=== PATIENT | female | born 1955 | race African-American/Black ===

== ENCOUNTER 2017-02-02 02:39 | Inpatient (IN) | payer MEDICAID ==
[~2017-02-02] VITALS: Ht 157.5 cm; Wt 61.7 kg
[2017-02-02] VITALS (9 sets, daily range): BP systolic 93–140; BP diastolic 50–78
--- NOTE | 2017-02-02 02:39 | NUR ---
Patient was BIBA and taken to bed 05 via gurney per EMS.
--- NOTE | 2017-02-02 02:42 | NUR ---
RT at bedside.
--- NOTE | 2017-02-02 02:43 | NUR ---
61 Y/O F BIBA, FROM [facility] C/O SOB, VOMITING, FEVER, BREATHING TREATMENT GIVEN ON ROUTE, ZOFRAN, AND TYLENOL. VSS, BILATERAL WHEEZES HEARD ON UPPER LOBES ON EXAHALATION, RT AT BEDSIDE. ER MD AWARE.
--- NOTE | 2017-02-02 03:15 | NUR ---
Jan conley in [facility] - 02/02/17 at 0316 by JACOB XRAY at bedside.
[2017-02-02] MEDS ORDERED: ALBUTEROL SULFATE/IPRATROPIU 3 ML SOL IH ONE (03:20)
[2017-02-02] MEDS ORDERED: NACL 0.9% 1,000 ML IV ONE ×3 (03:25→05:55)
--- NOTE | 2017-02-02 03:26 | NUR ---
RT at bedside to give patient breathing treatment.
--- NOTE | 2017-02-02 03:30 | NUR ---
A DROPPED TO 91/49 ER MD NOTIFIED. IV FLUIDS TO BE INITIATE PER ER MD VERBAL ORDERS.
[2017-02-02 03:38] LABS: BASOPHILS # (AUTO) 0.2 K/uL (0.00-0.22); BASOPHILS % (AUTO) 1.5 % (0.0-2.0); EOSINOPHILS # (AUTO) 0.3 K/uL (0-0.4); HEMATOCRIT 33.6 % (36-48); HEMOGLOBIN 10.9 g/dL (12.0-16.0); LYMPHOCYTES # (AUTO) 1.9 K/uL (2.5-16.5); LYMPHOCYTES % (AUTO) 12.5 % (20.5-51.1); MEAN CORPUSCULAR HEMOGLOBIN 28 pg (27-31); MEAN CORPUSCULAR HGB CONC 32 g/dL (33-37); MEAN CORPUSCULAR VOLUME 86 fL (80-94); MONOCYTES # (AUTO) 0.9 K/uL (0.8-1.0); MONOCYTES % (AUTO) 6.2 % (1.7-9.3); NEUTROPHILS # (AUTO) 11.5 K/uL (1.8-7.7); NEUTROPHILS % (AUTO) 77.8 % (42.2-75.2); PLATELET COUNT (AUTO) 450 K/uL (140-450); RED BLOOD CELL COUNT(AUTO) 3.93 MIL/uL (4.20-5.40); RED CELL DISTRIBUTION WIDTH 14.4 % (11.6-13.7); WHITE BLOOD COUNT (AUTO) 14.8 K/uL (4.8-10.8)
--- NOTE | 2017-02-02 03:55 | NUR ---
PATIENT CAME INTO ER FOR SOB AND RT NOTICED PATIENT ON T-PIECE 3L-32% TRACH PORTEX 8 UNCUFFED AIRWAY PATENT ON ADMISSION. PT SUCTIONED FROM TRACH AND ORAL CARE DONE. PATIENT SATURATION 98 HEART 88 NO RESP DISTRESS. TX ADMITTED NO ADVERSE EFFECTS Addendum: 02/02/17 at 0547 by Mika Ram RT PORTEX 6
[2017-02-02 04:05] LABS: ALBUMIN 2.1 g/dL (3.4-5.0); ANION GAP 7.8 (8-16); CALCIUM 7.6 mg/dL (8.5-10.1); CARBON DIOXIDE 34.1 mmol/L (21-32); CREATININE 1.4 mg/dL (0.6-1.3); POTASSIUM 3.9 mmol/L (3.5-5.1); TOTAL BILIRUBIN 0.1 mg/dL (0.0-1.0); TOTAL PROTEIN, SERUM 6.6 g/dL (6.4-8.2)
[2017-02-02 04:14] LABS: APPEARANCE,URINE CLOUDY (CLEAR); BILIRUBIN,URINE NEGATIVE (NEGATIVE); BLOOD, URINE 1+ (NEGATIVE); COLOR,URINE YELLOW (YELLOW); LEUKOCYTE ESTERASE ,URINE 3+ (NEGATIVE); NITRITE, URINE NEGATIVE (NEGATIVE); PROTEIN,URINE NEGATIVE (NEGATIVE); UGLUCOSE NEGATIVE (NEGATIVE); UROBILINOGEN,URINE 0.2 EU/dL (0.2 - 1)
--- NOTE | 2017-02-02 04:14 | NUR ---
BLOOD PRESSURE 78/45. PER ER VERBAL ORDERS TO RUN ANOTHER LT OF NS 0.9 AT 999 ML / HR.
[2017-02-02 04:16] LABS: LACTIC ACID 1.4 mmol/L (0.4-2.0)
[2017-02-02 04:24] LABS: BACTERIA,URINE 3+ /HPF (None Seen); RBC,URINE 3-10 (FEW) /HPF (0-5); WBC,URINE TOO MANY TO COUNT /HPF (0-5)
--- NOTE | 2017-02-02 04:45 | NUR ---
SUCTIONING FROM T-PIECE TRACH DONE. PT TOLERATED WELL. MODERATE AMOUNT OF CLEAR SECRETIONS OBTAINED.
--- NOTE | 2017-02-02 04:50 | NUR ---
PT ON BED, ON MONITOR, BP CONTINUES LOW, ER MD NOTIFIED. SINUS RHYTHM, WILL CONT TO MONITOR.
--- NOTE | 2017-02-02 05:08 | NUR ---
ER NOTIFIED OF BP READINGS OF 75/44.
[2017-02-02] MEDS ORDERED: NOREPINEPHRINE 4 MG in DEXTROSE 5% 250 ML IV ONE (05:10)
[2017-02-02] MEDS ORDERED: VANCOMYCIN 1,000 MG in DEXTROSE 5% 250 ML IV ONE (05:15)
[2017-02-02] MEDS ORDERED: LEVOFLOXACIN 500 MG TAB PO ONE (05:15)
[2017-02-02] MEDS ORDERED: NOREPINEPHRINE 4 MG/4 ML VIAL IV ONE (05:27)
[2017-02-02] MEDS ORDERED: VANCOMYCIN 1,000 MG VIAL ONE (05:39)
--- NOTE | 2017-02-02 05:45 | NUR ---
PATIENT PLACED ON T-PIECE COOL AERSOL 30% FIOI02 6LPM PER DR. COLLIER. PORTEX 6 / INNER CANNULA CHANGED AND TRACH CARE DONE/ TRACH TIE CHANGED/ PT STABLE NO RESP DISTRESS
[2017-02-02] MEDS ORDERED: ALBUTEROL SULFATE/IPRATROPIU 3 ML SOL IH PRN (05:55)
[2017-02-02] MEDS ORDERED: ONDANSETRON 4 MG/2 ML VIAL IM/IVP PRN (05:55)
[2017-02-02] MEDS ORDERED: HYDROcodone/APAP 7.5/325 MG 1 TAB PO PRN (05:55)
[2017-02-02] MEDS ORDERED: LEVOFLOXACIN 500 MG/D5W PREMIX 100 ML IV ONE (05:55)
[2017-02-02] MEDS ORDERED: ACETAMINOPHEN 325 MG TAB PO PRN (05:55)
[2017-02-02] MEDS ORDERED: DOCUSATE SODIUM 100 MG GELCAP PO PRN (05:55)
[2017-02-02] MEDS: ALBUTEROL SULFATE/IPRATROPIU 3 ML SOL IH SCH ×5 (06:35→23:06)
--- NOTE | 2017-02-02 06:35 | NUR ---
RECEIVED PT IN ED ON 30 % COOL AEROSOL VIA TRACH PORTEX 6 WHICH IS SECURE PT IN HF AWAKE BS COARSE I\L LAVAGE AND SX LG YELLOW HHN GIVEH WITH 3 MG DUONEB NO DISTRESS NOTED
[2017-02-02] MEDS ORDERED: LACT10SO11 GT (06:46)
[2017-02-02] MEDS ORDERED: ATOR10TA GT (06:46)
[2017-02-02] MEDS ORDERED: CLON0.2T15 GT (06:46)
[2017-02-02] MEDS ORDERED: DOCU100C14 GT (06:46)
[2017-02-02] MEDS ORDERED: NA P135N19 RC (06:46)
[2017-02-02] MEDS ORDERED: BISA-213 RC (06:46)
--- NOTE | 2017-02-02 06:48 | NUR ---
PATIENT HAS BEEN SCREENED AND CATEGORIZED HIGH NUTRITION RISK. PATIENT WILL BE SEEN WITHIN 1-2 DAYS OF ADMISSION. 02/02/17-02/03/17 JEFFERY GUADARRAMA MS, RDN
--- NOTE | 2017-02-02 06:50 | NUR ---
Patient will be admitted to care of DR FENG. Admited to ICU 1. Will go to room ICU 1. Belongings list completed. Report to MINOR FAUST.
[2017-02-02 06:56] LABS: PARTIAL THROMBOPLASTIN TIME 24.3 secs (22-35.6); PROTHROMBIN TIME 9.7 secs (10.8-13.4)
[2017-02-02] MEDS ORDERED: PHEN100C3 GT (06:58)
[2017-02-02] MEDS ORDERED: MAGN400S60 GT (06:58)
[2017-02-02] MEDS ORDERED: MULT1SGL58 GT (06:58)
[2017-02-02] MEDS ORDERED: LISI10TA11 GT (06:58)
[2017-02-02] MEDS ORDERED: LEVOFLOXACIN 750 MG/D5W PREMIX 150 ML IV SCH (07:00)
--- NOTE | 2017-02-02 07:00 | NUR ---
OREPINEPHRINE STOP PER ER MD VERBAL ORDERS D/T BP SYSTOLIC ABOVE 1000.
--- NOTE | 2017-02-02 07:02 | NUR ---
NOREPINEPHRINE STOP D/T BP SYSTOLIC ABOVE 1000. ER MD MEYER
--- NOTE | 2017-02-02 07:09 | NUR ---
LEVAQUIN NONADMINISTER D/T VANCO RUNNING ON ONE IV LINE AND NOREEPINEPHRINE RUNNING ON THE SECOND LINE. ER MD AWARE. REPORT GIVEN TO FLOOR NURSE, MINOR FAUST.
--- NOTE | 2017-02-02 07:12 | NUR ---
EBONY 16 FR INSERTED PER ER MD ORDERS.
[2017-02-02] MEDS ORDERED: ACET-2869 GT (07:17)
[2017-02-02] MEDS ORDERED: PRED20TA5 GT (07:17)
[2017-02-02] MEDS ORDERED: ALBUTEROL INH (07:17)
[2017-02-02] MEDS ORDERED: NUTR30LI3 GT (07:17)
[2017-02-02] MEDS ORDERED: SCOP1PAT TP (07:17)
[2017-02-02] MEDS ORDERED: ACET-1182 GT (07:17)
[2017-02-02] MEDS ORDERED: THIA100T34 GT (07:17)
[2017-02-02] MEDS ORDERED: METH-426 GT (07:17)
[2017-02-02] MEDS ORDERED: ASCO500T45 GT (07:17)
[2017-02-02] MEDS ORDERED: ESOM40EC GT (07:17)
[2017-02-02] MEDS ORDERED: ATROVENT INH (07:17)
[2017-02-02] MEDS ORDERED: RIVA20TA GT (07:17)
[2017-02-02] MEDS ORDERED: ONDA4TAB GT (07:17)
--- NOTE | 2017-02-02 07:20 | NUR ---
PATIENT WILL BE RESCREENED WITHIN 1-2 DAYS OF ADMISSION. NOT ENOUGH INFORMATION AVAILABLE AT THIS TIME. 02/03/17-02/04/17 JEFFERY GUADARRAMA MS, RDN
--- NOTE | 2017-02-02 07:30 | NUR ---
ADMITTED PT FROM ER BY LEYLA, PT OPENS EYES, NONVERBAL , BEDSIDE MONITOR SHOWS SR, TRACH TO T-PIECE 30% COOL AEROSOL, NO S/S OF RESPIRATORY DISTRESS NOTED. O2 SAT 95%. LUNGS SOUND COARSE UPON AUSCULTATION.G-TUBE IN PLACE, ABDOMEN SOFT, WEST CATH IN PLACE WITH CLOUDY YELLOW URINE NOTED. BP 93/58 AT THIS TIME. HOB ELEVATED 30 DEGREES WITH LOW BED POSITION. WILL CONTINUE TO MONITOR.
[2017-02-02] MEDS: NACL 0.9% 1,000 ML IV SCH ×3 (07:45→23:08)
--- NOTE | 2017-02-02 08:00 | NUR ---
DR. KISER AND GROUP AT BEDSIDE TO SEE PT. WILL F/U WITH NEW ORDERS
[2017-02-02] MEDS ORDERED: NOREPINEPHRINE 4 MG in DEXTROSE 5% 250 ML IV PRN (09:00)
[2017-02-02 09:10] LABS: MAGNESIUM 3.3 mg/dL (1.8-2.4); PHOSPHORUS 4.9 mg/dL (2.5-4.9)
[2017-02-02 09:11] LABS: AMYLASE 68 U/L (25-115); FREE T4 (FREE THYROXINE) 1.14 ng/dL (0.76-1.46); LIPASE 81 U/L (73-393); THYROID STIMULATING HORMONE < 0.01 uIU/mL (0.34-3.74)
--- NOTE | 2017-02-02 09:30 | NUR ---
DR. DIALLO AND DR. WHITE AT BEDSIDE TO PERFORM CENTRAL LINE INSERTION. CONSENT HAS BEEN OBTAINED FROM DAUGHTER DAJA. TIME OUT DONE.
[2017-02-02] MEDS ORDERED: HYDROmorphone 1 MG/ML AMP IVP SCH (09:44)
[2017-02-02 10:49] LABS: CHOL/HDL RATIO 3.4 (1-4.5); CHOLESTEROL 129 mg/dL (<200); HDL CHOLESTEROL 38 mg/dL (40-60)
[2017-02-02 10:51] LABS: LDL (CALC) 69 mg/dL (60-100); TRIGLYCERIDES 114 mg/dL (30-150)
--- NOTE | 2017-02-02 11:00 | NUR ---
NEW IV STARTED AT R FOREARM. 22 GAUGE. INTACT AND PATENT. FLUSHED WELL. BLOOD RETURN NOTED. Addendum: 02/02/17 at 1216 by Praful Morgan RN NEW IV STARTED BECAUSE PT HAD PULLED OUT THE OLD IV. DRESSING PLACED. CANULA WAS INTACT.
[2017-02-02] MEDS: PANTOPRAZOLE 40 MG INJ VIAL IVP SCH (11:07)
[2017-02-02] MEDS: MORPHINE SULFATE 2 MG/ML SYR IVP PRN ×2 (11:07→15:41)
[2017-02-02 11:22] LABS: BLOOD GAS BASE EXCESS 4.7 mmol/L (-2.0-2.0); BLOOD GAS HCO3 29.7 mmol/L; BLOOD GAS PH 7.428 (7.35-7.45); BLOOD GAS PO2 66.9 mmHg
[2017-02-02 11:23] LABS: BLOOD GAS O2 SAT% 93.3 % (92.0-98.5)
--- NOTE | 2017-02-02 11:45 | NUR ---
PER DR. DIALLO, UNABLE TO INSERT CENTRAL LINE. WILL CONTINUE TO MONITOR OF NOW. Addendum: 02/02/17 at 1214 by Praful Morgan RN CENTRAL LINE ATTEMPT WAS STOPPED AT 1045 NOT 1145.
[2017-02-02] MEDS ORDERED: CLINDAMYCIN 600 MG in DEXTROSE 5% 50 ML IV SCH (12:00)
[2017-02-02] MEDS: CLINDAMYCIN 600 MG in DEXTROSE 5% 50 ML IV SCH ×2 (12:11→17:15)
--- NOTE | 2017-02-02 12:15 | NUR ---
MEDICATION ADMINISTERED ORDERED. TOLERATED WELL. WILL CONTINUE TO MONITOR.
--- NOTE | 2017-02-02 12:17 | NUR ---
PATIENT HAS BEEN SCREENED AND CATEGORIZED HIGH NUTRITION RISK. PATIENT WILL BE SEEN WITHIN 1-2 DAYS OF ADMISSION. 02/02/17-02/03/17 JEFFERY GUADARRAMA MS, RDN
--- NOTE | 2017-02-02 12:58 | NUR ---
02/02/17 RD INITIAL ASSESSMENT COMPLETED PLEASE REFER TO NUTRITION ASSESSMENT UNDER CARE ACTIVITY FOR ESTIMATED NUTRITIONAL NEEDS. RD RECOMMENDATIONS: 1. CONSIDER INITIATING NUTRITION WHEN MEDICALLY APPROPRIATE. 2. CONSULT RDN FOR RECOMMENDATIONS. 3. CONSIDER FIBERSOURCE HN TO RUN AT RATE OF 65 ML/HR X 24 HOURS = 1650 ML, 1872 KCAL, 84.2 GM PROTEIN, AND 1263 ML FREE WATER, WITH ADDITIONAL WATER FLUSH 25 ML/HR X 24 HOURS TO PROVIDE 1000 ML. THIS WILL MEET 100% EST KCAL NEEDS AND 92% EST PROTEIN NEEDS. 4. RD WILL F/U 2-3 DAYS; HIGH RISK. JEFFERY GUADARRAMA, , RDN
--- NOTE | 2017-02-02 13:00 | NUR ---
DR. ENRIQUE AT BEDSIDE TO SEE PT. WILL F/U WITH NEW ORDERS.
--- NOTE | 2017-02-02 13:10 | NUR ---
UPDATE MD REGARDING RD RECOMMENDATION. AWAITING NEW ORDERS.
--- NOTE | 2017-02-02 13:20 | NUR ---
DR. WHITE AT BEDSIDE. BACK AND BUTTOCKS SHOWN TO RESIDENT. RESIDENT AWARE OF THE ABNORMAL SKIN ASSESSMENT
--- NOTE | 2017-02-02 13:53 | NUR ---
PIN POINT WOUND ON BOTTOM NOTED TO BE DRAINING. PUS LIKE. MD NOTIFIED. WILL FOLLOW NEW ORDERS.
[2017-02-02] MEDS ORDERED: MAGNESIUM HYDROXIDE 2400 MG/30 ML UDC GT PRN (14:15)
[2017-02-02] MEDS ORDERED: BISACODYL 10 MG SUPP RC PRN (14:15)
[2017-02-02] MEDS ORDERED: ACETAMINOPHEN 650 MG/20.3 ML UDC GT PRN (14:15)
[2017-02-02] MEDS ORDERED: SODIUM PHOSPHATE 118 ML ENEM RC PRN (14:15)
--- NOTE | 2017-02-02 15:00 | NUR ---
DR. DIALLO AND DR. WHITE AT BEDSIDE TO DO RECTAL EXAM. WILL F/U WITH NEW ORDER.
--- NOTE | 2017-02-02 15:27 | NUR ---
PT REFUSES SCDS, CURRENTLY ON XARELTO. AWARE. STATED THAT IT WAS OKAY TO NOT PLACE SCDS
[2017-02-02] MEDS ORDERED: FUROSEMIDE 20 MG/2 ML VIAL IVP SCH (15:33)
--- NOTE | 2017-02-02 15:34 | NUR ---
FAMILY AT BEDSIDE TO SEE PT. DAUGHTER AND GRANDSON.
--- NOTE | 2017-02-02 16:00 | NUR ---
PER DR. DIALLO, HOLDING TUBE FEEDING UNTIL STICKER HAND REVIEWS ORDER.
--- NOTE | 2017-02-02 16:48 | NUR ---
PT LEFT FOR CT SCAN WITH LEONARD AND RN IN [facility]. WILL CONTINUE TO MONITOR.
--- NOTE | 2017-02-02 17:10 | NUR ---
PT RETURN FROM CT. VITALS STABLE WILL CONTINUE TO MONITOR
[2017-02-02] MEDS: LACTULOSE 20 GM/30 ML UDC GT SCH ×2 (17:16→20:55)
--- NOTE | 2017-02-02 17:16 | NUR ---
REPEAT BUSINESS SUPPORT MANAGER TAKEN TO LAB CHANGE H20 BOTTLE CARISA THORPE
--- NOTE | 2017-02-02 17:17 | NUR ---
GT TUBE PLACEMENT CHECKED. 0 RESIDUAL NOTED. MEDICATION ADMINISTERED ORDERED. TOLERATED WELL. WILL CONTINUE TO MONITOR Addendum: 02/02/17 at 1757 by Praful Morgan RN TUBE FEEDING STARTED ORDERED. TOLERATING WELL. WILL CONTINUE TO MONITOR.
--- NOTE | 2017-02-02 19:00 | NUR ---
RECEIVED PT ON 32% COOL AEROSOL , TRACH # 6, MED NEB IM LINE, SX SMALL THIN SECRETION
--- NOTE | 2017-02-02 19:20 | NUR ---
RECEIVED REPORT FROM CHRISTIANNE RN AT BEDSIDE, PT IS RESTING IN BED WITH EYES CLOSED, OPEN EYES WHEN CALLING HER NAME, APHASIC, NOT ABLE TO FOLLOW COMMANDS, VSS, FLACC 0, TRACH TO T-PIECE 30% COOL AEROSOL, NO S/S OF RESPIRATORY DISTRESS, BREATHING EVEN AND UNLABORED, CLEAR LUNG SOUNDS, INTERMIT COUGHING, SUCTION PROVIDED, O2 SAT 96%. SR ON FIREARMS SALES ASSOCIATE, SOFT ABDOMEN WITH ACTIVE BOWEL SOUNDS, G-TUBE IN PLACE WITH 0 ML RESIDUALS, FEEDING FIBERSOURCE AT 65ML/HR, INCONTINENT WITH B&B'S, WEST CATH IN PLACE WITH CLOUDY YELLOW URINE NOTED. GENERALIZED WEAKNESS TO ALL EXTREMITIES, SKIN IS WARM AND DRY TO TOUCH, NON-INTACT (SEE WOUND ASSESSMENT), IV SITE TO RIGHT FOREARM 22GA, PATENT, SL, IV SITE TO LEFT HAND 22GA RUNNING NS AT 100 ML/HR. ORAL CARE PROVIDED, POSITION CHANGED FOR OFF LOAD PRESSURE, SAFETY MEASURES MAINTAINED, HOB ELEVATED 30 DEGREES, CALL LIGHT WITH REACH, WILL CONTINUE TO MONITOR.
--- NOTE | 2017-02-02 19:20 | NUR ---
REPORT GIVEN TO MINOR MACHADO. PT IS STABLE.
--- NOTE | 2017-02-02 20:45 | NUR ---
DR. MERINO CAME IN TO EVALUATE PATIENT AT BEDSIDE, NO NEW ORDER AT THIS TIME.
[2017-02-02] MEDS: DOCUSATE 100 MG/10 ML UDC GT SCH (20:55)
[2017-02-02] MEDS: ATORVASTATIN 20 MG TAB GT SCH (20:55)
[2017-02-02] MEDS ORDERED: NON-FORMULARY ITEM (Amino Acids/Protein Hydrolys (Pro-Stat Sugar Free Liquid Pkt) 30 ML) GT SCH (21:00)
--- NOTE | 2017-02-02 22:00 | NUR ---
NO CHANGE OF CONDITION AT THIS TIME, VSS, POSITION CHANGED FOR OFF LOAD PRESSURE.
[2017-02-03] VITALS (8 sets, daily range): BP systolic 97–122; BP diastolic 56–68
--- NOTE | 2017-02-03 | NUR ---
PT IS ASLEEP IN BED, NO S/S OF DISTRESS, SUCTION PROVIDED, ORAL CARE PROVIDED, POSITION CHANGED FOR OFF LOAD PRESSURE.
[2017-02-03] MEDS: CLINDAMYCIN 600 MG in DEXTROSE 5% 50 ML IV SCH ×4 (00:13→18:15)
--- NOTE | 2017-02-03 00:15 | NUR ---
TRACH CARE DONE, CLEAN INNER CANNULA AND CHANGED THE GAUZE, SX SMALL SECRETION, PT ASLEEP NO DISTRESS NOTED
--- NOTE | 2017-02-03 02:00 | NUR ---
PT IS COUGHING, SUCTION PROVIDED, VSS, POSITION CHANGED FOR OFF LOAD PRESSURE.
[2017-02-03] MEDS: ALBUTEROL SULFATE/IPRATROPIU 3 ML SOL IH SCH ×6 (03:08→23:04)
--- NOTE | 2017-02-03 03:22 | NUR ---
CHANGED WATER FOR AEROSOL, PT ASLEEP, NO DISTRESS NOTED
--- NOTE | 2017-02-03 04:00 | NUR ---
AM CARE PROVIDED, ORAL CARE PROVIDED, WEST CARE PROVIDED, SUCTION PROVIDED, POSITION CHANGED FOR OFF LOAD PRESSURE, VSS.
[2017-02-03 04:37] LABS: BASOPHILS # (AUTO) 0.1 K/uL (0.00-0.22); EOSINOPHILS # (AUTO) 0.2 K/uL (0-0.4); HEMATOCRIT 30.5 % (36-48); HEMOGLOBIN 9.9 g/dL (12.0-16.0); LYMPHOCYTES # (AUTO) 1.8 K/uL (2.5-16.5); MEAN CORPUSCULAR HEMOGLOBIN 28 pg (27-31); MEAN CORPUSCULAR HGB CONC 32 g/dL (33-37); MEAN CORPUSCULAR VOLUME 87 fL (80-94); MONOCYTES # (AUTO) 0.4 K/uL (0.8-1.0); MONOCYTES % (AUTO) 6.1 % (1.7-9.3); NEUTROPHILS # (AUTO) 3.4 K/uL (1.8-7.7); NEUTROPHILS % (AUTO) 57.9 % (42.2-75.2); PLATELET COUNT (AUTO) 313 K/uL (140-450); RED BLOOD CELL COUNT(AUTO) 3.52 MIL/uL (4.20-5.40)
[2017-02-03 04:45] LABS: ANION GAP 8.4 (8-16); CALCIUM 7.3 mg/dL (8.5-10.1); CARBON DIOXIDE 31.9 mmol/L (21-32); CREATININE 0.8 mg/dL (0.6-1.3); POTASSIUM 3.3 mmol/L (3.5-5.1)
[2017-02-03 04:52] LABS: CALCIUM 7.4 mg/dL (8.5-10.1); MAGNESIUM 2.3 mg/dL (1.8-2.4); PHOSPHORUS 3.1 mg/dL (2.5-4.9)
[2017-02-03 04:58] LABS: WHITE BLOOD COUNT (AUTO) 5.9 K/uL (4.8-10.8)
--- NOTE | 2017-02-03 06:00 | NUR ---
PT IS COUGHING UP WITH FEEDING FORMULA OUT FROM TRACH, SUCTION PROVIDED, DR. WHITE MADE AWARE. POSITION CHANGED FOR OFF LOAD PRESSURE. VSS.
[2017-02-03] MEDS: NACL 0.9% 1,000 ML IV SCH ×2 (06:17→17:05)
--- NOTE | 2017-02-03 07:11 | NUR ---
REPORT GIVEN TO MINOR CASTILLO AT BEDSIDE FOR CONTINUE OF CARE, PT IS IN STABLE CONDITION AT THIS TIME.
--- NOTE | 2017-02-03 07:30 | NUR ---
RECEIVED REPORT FROM CARTER GAXIOLA,PT IS SLEEPING AT THE TIME. OPEN EYES WHEN SHAKED, SHE HAS TRACH TO T. PEICE AT 30 %. O2 SAT AT 98% IV FLUID HAS #22 ON LT HAND INFUSING NS AT 100 ML/HR. GT FEEDING WITH FIBERSOURCE HN AT 65 ML/HR. SHE HAS F/C DRAIN CLEAR YELLOW URINE.
[2017-02-03] MEDS ORDERED: NACL 0.9% 1,000 ML IV SCH (07:50)
--- NOTE | 2017-02-03 07:53 | NUR ---
LAB CALLED. SPUTUM SENT 02/02/17 @ 1716 IS CONTAMINATED. UNABLE TO DO CULTURE. NEEDS TO RECOLLECT. RT ESTER MADE AWARE OF NEED FOR SPUTUM SPECIMEN.
--- NOTE | 2017-02-03 08:00 | NUR ---
SEEN BY DR. HOLLAND AND HIS TEAM. ORDER RECEIVED.
--- NOTE | 2017-02-03 08:05 | NUR ---
BEBA PT FOR THE THIRD TIME DUE TO LAB SAYING THE SPUTUM WAS CONTAMINATED
[2017-02-03 08:23] LABS: HEMOGLOBIN A1C 5.5 % (4.8-5.6); T4 (THYROXINE) 4.3 ug/dL (4.5-12.0)
[2017-02-03] MEDS: DOCUSATE 100 MG/10 ML UDC GT SCH ×2 (08:25→21:49)
[2017-02-03] MEDS: PANTOPRAZOLE 40 MG INJ VIAL IVP SCH (08:25)
[2017-02-03] MEDS: LACTULOSE 20 GM/30 ML UDC GT SCH ×4 (08:26→21:48)
[2017-02-03] MEDS: ASCORBIC ACID 500 MG/5 ML ORASYR GT SCH (08:26)
[2017-02-03] MEDS: predniSONE 20 MG TAB GT SCH (08:26)
[2017-02-03] MEDS: METHIMAZOLE 5 MG TAB GT SCH (08:27)
[2017-02-03] MEDS: RIVAROXABAN 10 MG TAB GT SCH (08:29)
[2017-02-03] MEDS: FERRIC GLUCONATE 125 MG in NACL 0.9% 100 ML IV SCH ×2 (08:30→09:16)
[2017-02-03] MEDS ORDERED: NON-FORMULARY ITEM (Multivitamin (Multivitamins) 1 CAP) GT SCH (09:00)
--- NOTE | 2017-02-03 09:10 | NUR ---
POTASSIUM 40 MEQ GT GIVEN.
--- NOTE | 2017-02-03 09:15 | NUR ---
PT GETTING RESTLESS HR AND RESP. ARE INCREASE MEDICATION FOR PAIN GIVEN ORDERED.
[2017-02-03] MEDS: MORPHINE SULFATE 2 MG/ML SYR IVP PRN (09:17)
[2017-02-03] MEDS: MULTIVITAMIN 5 ML ORASYR GT SCH (09:20)
[2017-02-03] MEDS: THIAMINE 100 MG TAB GT SCH (09:21)
[2017-02-03] MEDS ORDERED: POTASSIUM CHLORIDE 20% 40 MEQ/15 ML UDC GT SCH (09:30)
--- NOTE | 2017-02-03 11:13 | NUR ---
STRACE PT LARGE AMT OF YELLOW SECRETIONS, CHANGED MAURILIO PT IS NOW RESTING
--- NOTE | 2017-02-03 12:00 | NUR ---
REPOSITION ORAL CARE GIVEN ,RESTING COMFORTABLE.
--- NOTE | 2017-02-03 14:45 | NUR ---
TRACH CARE DONE CHANGED TRACH TIE AND GAUZE AND CLEANED INNER CANNULA SXN PT LARGE AMT OF THICK YELLOW SECRETIONS RN STUDENTS AT BEDSIDE
--- NOTE | 2017-02-03 15:25 | NUR ---
TRANSFER TO 108BIN BED CONDITION STABLE DURING TRANSFER.
--- NOTE | 2017-02-03 15:30 | NUR ---
REPORT GIVED TO MARYSE GAXIOLA
--- NOTE | 2017-02-03 15:30 | NUR ---
PT ARRIVED ON UNIT WITH ANNA HEART NURSE. PT IS AWAKE AND OBEYS COMMANDS. PT HAS A TRACH TO VENT AT 30% FIO2 AND 6LPM OF O2. PT O2 SATURATION IS 96% AND RESPIRATIONS AT 28. DR WHITE WAS NOTIFIED. PT SKIN IS INTACT WITH HEALED PINPOINT WOUND IN THE SACRUM. PT ON ISOLATION PRECAUTIONS FOR HX OF ESBL OF THE SPUTUM. PT V/S WERE TAKEN. IV NOTED ON THE L H WITH IVF'S INFUSING WELL. PT HAS GT IN PLACE IN THE RUQ WITH FIBERSOURCE AT 60ML/HR AND FREE H20 FLUSH AT 25ML/HR Q6H. PT LUNG SOUNDS ARE COARSE MD AWARE. PT ON TELE MONITORING. PT BED IS LOWERED WITH CALL LIGHT WITHIN REACH.
--- NOTE | 2017-02-03 16:00 | NUR ---
RT CAME TO SUCTION PT. PT TOLERATED ACTIVITY WELL. PT O2 SATURATION IS 94% HR AT 109. PT MOUTH WAS SUCTIONED WELL. WILL CONTINUE TO MONITOR.
[2017-02-03] MEDS ORDERED: cloNIDine-TTS1 0.1 MG/24 HR 1 EA PATCH TD SCH (16:25)
--- NOTE | 2017-02-03 16:25 | NUR ---
CLONIDINE PATCH WAS NOT GIVEN BECAUSE PT BP IS 103/60. WILL MONITOR PT BP. WILL ENDORSE TO NIGHT NURSE.
--- NOTE | 2017-02-03 16:30 | NUR ---
PT SEEN BY DR WHITE. DR AWARE OF RESPIRATIONS AND TACHYCARDIA. WILL AWAIT FOR NEW ORDERS.
[2017-02-03] MEDS ORDERED: SCOPOLAMINE 1.5 MG/72 HR PATCH TD SCH (17:15)
--- NOTE | 2017-02-03 18:24 | NUR ---
ADMINISTERED SCHEDULED MEDS THROUGH GT. PT GT WAS CHECKED FOR PLACEMENT AND ASPIRATED. PT RESIDUAL WAS 40 CC. GT WAS FLUSHED WITH 10CC OF WATER AND MEDICATION WAS ADMINISTERED. AFTER MEDICATION ADMINISTRATION RN FLUSHED WITH 10CC OF WATER. RN CONTINUED TF AT 65ML/ HR. IV ABX WAS GIVEN AND INFUSING WELL IN THE LH. PT SCOPOLAMINE TRANSDERMAL IS NOT AVAILABLE. CALLED DR MERINO IF IT WAS OKAY TO CHANGE TIME FOR TOMORROW MORNING WHEN PHARMACY IS OPEN. OKAYED FOR MEDICATION TO BE ADMINISTERED WITH THE MORNING MEDICATIONS AT 9AM.
--- NOTE | 2017-02-03 18:33 | NUR ---
PT IS AWAKE AND WAS SUCTIONED. PT THEN WAS TURNED AND REPOSITIONED. O2 SAT IS 99% AND HR 94. PT BED IS LOWERED WITH CALL LIGHT WITHIN REACH.
--- NOTE | 2017-02-03 19:15 | NUR ---
RCV'D PT ON 30% CA WITH PORTEX 6. TRACH IS IN PLACE AND SECURE. SXN'D SMALL AMT OF WHITE THIN SECRETIONS. BS COARSE. SPO2 98%. HHN TX GIVEN. NO SOB OR DISTRESS NOTED. WILL CONTINUE TO MONITOR.
--- NOTE | 2017-02-03 19:29 | NUR ---
PT IS BEING SEEN BY RT. PT IS GETTING A BREATHING TX. PT REPORT WAS GIVEN AT BEDSIDE. PT ENDORSED IN STABLE CONDITION.
--- NOTE | 2017-02-03 19:30 | NUR ---
RECEIVED REPORT FROM DAY RN AT BEDSIDE, PATIENT IS APHASIC, WITH A TRACH TO TPIECE AT 30%, NO SOB OR DISTRESS NOTED, RT AT BEDSIDE, PT HAS MANY SECRETIONS. O2 SATS AT 95% HR 95. PATIENT OPENS EYES SPONTANEOUSLY, FOLLOWS MINIMAL COMMANDS. PT DOES NOT APPEAR TO BE IN PAIN, FLACC-0. PT HAS G-TUBE TO FEEDING AT 65ML/HR. PT TOLERATING WELL. RESIDUAL 10ML. SKIN INTACT, WITH SACRAL REDNESS. IV TO LEFT HAND PATENT AND INTACT. SAFETY MEASURES CHECKED, WILL CONTINUE TO FREQUENTLY MONITOR.
--- NOTE | 2017-02-03 21:15 | NUR ---
WAS CALLED BY JONNA ROSSI BECAUSE PATIENT DECANNULATED HER TRACH TUBE. THERE WAS NO 6 PORTEX CUFFED AND UNCUFFED IN PYXIS. WHILE DR. SELLERS WAS PRESENT AT BEDSIDE WITH ME, I ATTEMPTED TO PUT SHILEY 6 CUFFED AND WAS UNABLE,STOMA WAS VERY SMALL, SO I RE-INSERTED PATIENT ORIGINAL TRACH TUBE PORTEX 6 UNCUFFED BREATH SOUNDS ARE BILATERAL, SAO2 100% HR-97 ON 30% T-PIECE
--- NOTE | 2017-02-03 21:31 | NUR ---
RCV'D A CALL FROM MINOR MCLAIN THAT PT PULLED OUT HER TRACH. UPON ARRIVAL PT SPO2 WAS 97% WITH NO DISTRESS. ED DR SELLERS WAS CALLED STAT. TRACH WAS PUT BACK BY RT NBA WITH PRESENCE OF DR SELLERS. PT IS NOT IN DISTRESS. CLEANED STOMA. SXN'D SMLL AMT OF BLOODY SECRETIONS. PER DR SELLERS TO RESTRAIN PT. DONE BY NURSE. PAGED DR MERINO WAITING FOR CALL BACK FOR ANY FURTHER INSTRUCTIONS. WILL CONTINUE TO MONITOR.
--- NOTE | 2017-02-03 21:40 | NUR ---
PER DR MERINO TO ORDER CXR TO CONFIRM TRACH PLACEMENT. ORDER DONE BY CHARGE NURSE.
--- NOTE | 2017-02-03 21:42 | NUR ---
AT 2115 ENTERED PATIENT'S ROOM TO GIVE PM MEDICATIONS, PATIENT'S T PIECE WAS LAYING ON PTS CHEST, ON FURTHER ASSESSMENT, PT PULLED OUT TRACH, PT WAS NOT IN RESPIRATORY DISTRESS, O2 SATS REMAINED 95-97%, PAGED RT JONNA STAT, RT CAME TO ASSESS, CHARGE NURSE CALLED DR SELLERS STAT TO REINSERT TRACH. BOTH RTS JONNA AND NBA IN ROOM, MD SELLERS CAME TO ASSIST. RT MARIA LI INSERTED TRACH, PT TOLERATED WELL. PTS HR 118 DURING REINSERTION, O2 SATS REMAIN AT 97 AND AFTER INSERTION HR IS 96. RECEIVED VERBAL ORDERS FROM MD SELLERS TO RESTRAIN PT SO PATIENT DOES NOT PULL IT OUT AGAIN. WILL FOLLOW UP WITH ORDERS. PT IN SOFT WRIST RESTRAINTS.WILL CONTINUE TO CLOSELY MONITOR PATIENT.
[2017-02-03] MEDS: ATORVASTATIN 20 MG TAB GT SCH (21:49)
--- NOTE | 2017-02-03 22:55 | NUR ---
PM MEDS ADMINISTERED THROUGH G-TUBE PER MD ORDER, PT O2 SATS REMAIN AT 97-100%, WILL CONTINUE TO CLOSELY MONITOR.
--- NOTE | 2017-02-03 23:08 | NUR ---
HHN TX GIVEN. SXN'D SMALL AMOUNT OF BLOODY SECRETIONS. NO SOB OR DISTRESS NOTED SPO2 100%. PORTEX [address] STOMA IS DRAINING[address] MINOR MCLAIN AT BEDSIDE. WILL CONTINUE TO MONITOR.
[2017-02-04] VITALS: BP 150/65
--- NOTE | 2017-02-04 | NUR ---
VITAL SIGNS STABLE, NO SIGN OF DISTRESS, PT SUCTIONED, WHITE SECRETIONS, O2 SATS 100% NO SIGN OF DISTRESS, WILL CONTINUE TO MONITOR.
[2017-02-04] MEDS: CLINDAMYCIN 600 MG in DEXTROSE 5% 50 ML IV SCH ×4 (01:07→18:45)
--- NOTE | 2017-02-04 01:30 | NUR ---
SUCTIONED MODERATE AMOUNT OF WHITE SECRETIONS O2 SATS 100%, WILL CONTINUE TO CLOSELY MONITOR
--- NOTE | 2017-02-04 02:15 | NUR ---
SUCTIONED TRACH, LARGE AMOUNT WHITE SECRETIONS. O2 SAT 98% HR 85. WILL CONTINUE TO MONITOR.
[2017-02-04] MEDS: ALBUTEROL SULFATE/IPRATROPIU 3 ML SOL IH SCH ×6 (02:52→22:58)
--- NOTE | 2017-02-04 02:56 | NUR ---
HHN TX GIVEN TO PT. SXN'D MOD AMOUNT OF WHITE THIN SECRETIONS. NO SOB OR DISTRESS NOTED. WILL CONTINUE TO MONITOR.
--- NOTE | 2017-02-04 03:13 | NUR ---
TRACH CARE DONE WITHOUT INCIDENT. ASKED RN RAYNE IF PT HAS MITTEN ORDERS PT CAN STILL REACH WITH HER RIGHT HAND. SHE SAID THEY WILL TIE IT MORE. NO SOB OR DISTRESS NOTED. WILL CONTINUE TO MONITOR.
--- NOTE | 2017-02-04 03:15 | NUR ---
REINFORCED RIGHT WRIST RESTRAINT, PT ABLE TO REACH FOR TUBES. PT JUST RECEIVED BREATHING TX, TRACH IN PLACE, O2 SATS AT 94%, WILL CONTINUE TO CLOSELY MONITOR.
[2017-02-04 04:00] VITALS: BP 146/74
--- NOTE | 2017-02-04 04:09 | NUR ---
PT KEEPS MOVING A LOT T PIECE GOT DISCONNECTED FROM TRACH. ON PATIENTS CHEST, RESTRAINTS TIGHTENED, T PIECE RECONNECTED O2 SATS AT 95% Addendum: 02/04/17 at 0802 by Krista Escobedo RN TRACH REMAINS IN PLACE RT JONNA OBSERVED AND TIGHTENED COLLAR.
[2017-02-04] MEDS ORDERED: MORPHINE SULFATE 2 MG/ML SYR IVP STA (04:52)
--- NOTE | 2017-02-04 04:55 | NUR ---
WAS CALLED BY MINOR MCLAIN BECAUSE PT DECANNULATED HER TRACH AGAIN. SAME TRACH WAS INSERTED BY RT NBA WITH PRESENCE OF BEVERLEY GILMORE, CHARGE NURSE, AND MINOR MCLAIN. NO SOB OR DISTRESS NOTED PT SPO2 STAYED 98%. PT CURRENTLY ON RA WITH SPO2 OF 96%. WILL CONTINUE TO MONITOR.
[2017-02-04] MEDS ORDERED: ALBUTEROL 0.083% 2.5 MG/3 ML NEBU INH ONE (05:00)
--- NOTE | 2017-02-04 05:10 | NUR ---
ONE HHN TX OF ALB GIVEN TO PT PER DR SELLERS. NO SOB OR DISTRESS NOTED. MINOR MCLAIN AT BEDSIDE. WILL CONTINUE TO MONITOR.
--- NOTE | 2017-02-04 05:10 | NUR ---
CNAS TURNING AND CLEANING PT, WAS CALLED BY SEA CAPTAIN PTS TRACH WAS OUT, UPON ENTERING ROOM, PATIENTS TRACH WAS REMOVED, O2 SATS AT 80%, INCREASED TO 90% ON ROOM AIR, PT ON RESTRAINTS, CALLED RT JONNA, CALLED ER TO NOTIFY DR SELLERS, CHARGE NURSE MADE AWARE. HOUSE SUP, DR SELLERS, CHARGE NURSE, RTS JONNA AND NBA AT BEDSIDE, TRACH REINSERTED BY RT NBA, MD SELLERS PRESENT TO ASSIST. OXYGEN SATURATION AT 98%. RECEIVED VERBAL ORDERS FROM MD SELLERS FOR STAT CHEST XRAY AND MORPHINE TO CALM PATIENT DOWN. RECEIVED ORDERS AND CARRIED OUT. MORPHINE GIVEN, CXR TAKEN, VITALS BP 146/74 HR 81 O2 SATS AT 100% ON ROOM AIR. WILL CONTINUE TO CLOSELY MONITOR PATIENT.
--- NOTE | 2017-02-04 05:23 | NUR ---
CNAS TURNING AND CLEANING PT, WAS CALLED BY MINOR PRIETO AT 0445 THAT PATIENTS TRACH WAS OUT, UPON ENTERING ROOM, PATIENTS TRACH WAS OUT. PT ON HAND RESTRAINTS, UNABLE TO INSERT PORTEX 6 CUFFED TRACH TUBE SO I REINSERTED HER ORIGINAL PORTEX 6 CUFFLESS, DR. SELLERS PRESENT AT BEDSIDE.OBTURATOR IN BAG TAPED AT HEAD OF BED. B/S BILATERAL, OXYGEN SATURATION AT 97% ON ROOM AIR, VITALS BP 146/74 HR 81 O2 SATS AT 100% ON ROOM AIR. CHEST XRAY WAS TAKEN. WILL CONTINUE TO CLOSELY MONITOR PATIENT.
--- NOTE | 2017-02-04 06:00 | NUR ---
PATIENT RESTING CALMLY IN BED, RESTRAINTS IN PLACE, SO SIGN OF DISTRESS, WILL CONTINUE TO MONITOR
[2017-02-04 06:09] LABS: ANION GAP 8.6 (8-16); CALCIUM 7.7 mg/dL (8.5-10.1); CARBON DIOXIDE 29.4 mmol/L (21-32); CREATININE 0.6 mg/dL (0.6-1.3)
[2017-02-04 06:14] LABS: HEMATOCRIT 31.4 % (36-48); HEMOGLOBIN 10.6 g/dL (12.0-16.0); MEAN CORPUSCULAR HEMOGLOBIN 30 pg (27-31); MEAN CORPUSCULAR HGB CONC 34 g/dL (33-37); MEAN CORPUSCULAR VOLUME 88 fL (80-94); PLATELET COUNT (AUTO) 242 K/uL (140-450); RED BLOOD CELL COUNT(AUTO) 3.58 MIL/uL (4.20-5.40); RED CELL DISTRIBUTION WIDTH 14.5 % (11.6-13.7); WHITE BLOOD COUNT (AUTO) 8.6 K/uL (4.8-10.8)
--- NOTE | 2017-02-04 06:30 | NUR ---
RECEIVED PT ON RA SPO2 95 PLACED 30 % T-PIECE BS COARSE PTS TRACH PORTEX 6 IS SECURE PT IN HF ASLEEP PTS HANDS ARE RESTRAINED I\L LAVAGE AND SX MOD WHITE HHN GIVEN WITH 3 MG DUONEB
[2017-02-04 06:57] LABS: LYMPHOCYTES % (MANUAL) 39 % (20-46); MONOCYTES % (MANUAL) 4 % (5-12); NEUTROPHILS % (MANUAL) 57 (43-65)
--- NOTE | 2017-02-04 07:30 | NUR ---
RECEIVED PT REPORT FROM NIGHT NURSE AT BEDSIDE. PT IS AWAKE AND OBEYS COMMANDS. PT HAS STRONG HISTORICAL RECORDS ADMINISTRATOR ON THE R H AND CAN MOVE LEGS AND FEET WHEN ASKED. PT HAS A TRACH TO VENT AT 30% FIO2 AND 6LPM OF O2. PT O2 SATURATION IS 94% AND RESPIRATIONS AT 26. PT HAS LARGE AMOUNT OF CLEAR WHITE SECRETIONS IN TRACH AND MOUTH. PT WAS SUCTIONED. PT SKIN IS INTACT WITH HEALED PINPOINT WOUND IN THE SACRUM. PT ON ISOLATION PRECAUTIONS FOR HX OF ESBL OF THE SPUTUM. IV NOTED ON THE L H WITH IVF'S INFUSING WELL NS @ 10ML/HR. PT HAS GT IN PLACE IN THE RUQ WITH NO RESIDUAL AND CHECKED FOR PLACEMENT. PT FEEDING IS PLACED ON HOLD. PT ABD IS SOFT AND NON TENDER. PT LUNG SOUNDS ARE COARSE MD AWARE. PT ON TELE MONITORING. PT BED IS LOWERED WITH CALL LIGHT WITHIN REACH.
--- NOTE | 2017-02-04 07:30 | NUR ---
ENDORSED PATIENT TO DAY RN AT BEDSIDE, PATIENT IN STABLE CONDITION, SLEEPING, NO DISTRESS, SOFT WRIST RESTRAINTS IN PLACE, TRACH TO TPIECE IN PLACE.
[2017-02-04 07:57] VITALS: BP 139/85
--- NOTE | 2017-02-04 08:20 | NUR ---
PT WAS TURNED BY RN AND DENIER CONTROL OPERATOR. PT WAS PROVIDED WITH MELY CARE AND NEW GOWN. PT WAS REPOSITIONED. PT O2 SAT IS BETWEEN 92%-98% THROUGHOUT ACTIVITY. PT INTERMITTENTLY COUGHED UP WHITE CLEAR SECRETIONS. PT WAS CONTINUOUSLY SUCTIONED THROUGHOUT ACTIVITY. TUBE FEEDING IS STILL PLACED ON HOLD. PT BED LOWERED WITH CALL LIGHT WITHIN REACH.
[2017-02-04] MEDS ORDERED: SCOPOLAMINE 1.5 MG/72 HR PATCH TD SCH (09:00)
--- NOTE | 2017-02-04 09:15 | NUR ---
SX LG AMTS WHITE SECRETIONS SPO2 98
[2017-02-04] MEDS ORDERED: FERRIC GLUCONATE 62.5 MG/5 ML AMP IV ONE (09:55)
[2017-02-04] MEDS: LACTULOSE 20 GM/30 ML UDC GT SCH ×4 (09:56→21:34)
[2017-02-04] MEDS: predniSONE 20 MG TAB GT SCH (09:57)
[2017-02-04] MEDS: DOCUSATE 100 MG/10 ML UDC GT SCH ×2 (09:57→21:34)
--- NOTE | 2017-02-04 09:57 | NUR ---
ADMINISTERED SCHEDULED MEDICATIONS. FERRLECIT 125MG IV MEDICATION IS INFUSING WELL. PT GT WAS CHECKED FOR PLACEMENT, ASPIRATED AND FLUSHED. PT HAD NO RESIDUAL. MEDICATIONS WERE CRUSHED AND GIVEN THROUGH THE GT. DURING ADMINISTRATION OF MEDICATIONS PT O2 SAT WAS 95% HR 101. PT CONTINUOUSLY HAS LARGE AMOUNTS OF SPUTUM. PT WAS CONTINUOUSLY SUCTIONED. PT GT WAS THEN FLUSHED HOWEVER RN NOTICED A BULGE ON UPPER ABD NEAR THE GT. CHARGE NURSE EDUARDO GAXIOLA NOTIFIED. I STAYED WITH PT WHILE MD WERE BEING CALLED TO MAKE THEM AWARE.
[2017-02-04] MEDS: METHIMAZOLE 5 MG TAB GT SCH (09:58)
[2017-02-04] MEDS: MULTIVITAMIN 5 ML ORASYR GT SCH (09:59)
[2017-02-04] MEDS: THIAMINE 100 MG TAB GT SCH (10:00)
[2017-02-04] MEDS: ASCORBIC ACID 500 MG/5 ML ORASYR GT SCH (10:00)
[2017-02-04] MEDS: RIVAROXABAN 10 MG TAB GT SCH (10:01)
[2017-02-04] MEDS: FUROSEMIDE 40 MG/4 ML VIAL IVP SCH (10:02)
[2017-02-04] MEDS: PANTOPRAZOLE 40 MG INJ VIAL IVP SCH (10:03)
[2017-02-04] MEDS: FERRIC GLUCONATE 125 MG in NACL 0.9% 100 ML IV SCH (10:08)
--- NOTE | 2017-02-04 10:30 | NUR ---
AFTER ADMINISTRATION OF MEDICATIONS WERE GIVEN AND FLUSHED WITH 10CC OF WATER I NOTICED PT COUGHING LARGE AMOUNTS OF WHITE CLEAR PHLEGM. WHILE SUCTIONING AND ASSESSING PT TOLERATING ACTIVITY, I NOTICED PT ABD HAD A NEW BULGE IN THE RUQ ABOVE THE GT. WHEN PT COUGHS BULGE INCREASES IN SIZE. RN NOTIFIED EDUARDO GAXIOLA AND SHE NOTIFIED DR LOVE. ARRIVED TO PT ROOM AND ORDERED A XR OF THE ABD AND HELD MEDICATIONS AND FEEDING. PT O2 SAT IS 96% AND HR 105. PT BED IS LOWERED WITH CALL LIGHT WITHIN REACH. RT IS SEEING PT TO ADMINISTER SCHEDULED BREATHING TREATMENT.
--- NOTE | 2017-02-04 11:30 | NUR ---
PT WAS SUCTIONED. PT HAS LARGE AMOUNTS OF WHITE PHLEGM IN THE T PIECE AND MOUTH. PT TOLERATED ACTIVITY WELL. PT O2 SAT IS 100% AND HR IS 98. PT BED LOWERED WITH CALL LIGHT WITHIN REACH.
[2017-02-04 12:00] VITALS: BP 116/87
--- NOTE | 2017-02-04 12:15 | NUR ---
PT WAS GIVEN SCHEDULED MEDICATION. PT IS INCONTINENT OF URINE. PT WAS PROVIDED WITH PERINEAL CARE AND NEW LINENS. PT WAS REPOSITIONED. PT COUGHED WHITE CLEAR PHLEGM THROUGHOUT REPOSITIONING. PT CONTINUOS TO HAVE LARGE AMOUNTS OF PHLEGM AND NEEDS CONTINUOUS SUCTIONING. PT O2 SAT IS 92% AND HR IS 98.
--- NOTE | 2017-02-04 12:30 | NUR ---
PT WAS SEEN BY DR MERINO. DR MADE AWARE OF PT'S CONTINUOS SUCTIONING OF WHITE CLEAR PHLEGM.
--- NOTE | 2017-02-04 13:30 | NUR ---
PT IS BEING SEEN BY LAB AIDE.
--- NOTE | 2017-02-04 14:00 | NUR ---
PT HAS FAMILY AT BEDSIDE. FAMILY REQUEST TO SEE DR IN CARE OF PT. DR LOVE IN ROOM WITH PT AND PT'S FAMILY. ALL QUESTIONS ANSWERED BY . PT FAMILY VERBALIZED UNDERSTANDING.
--- NOTE | 2017-02-04 14:30 | NUR ---
DR LOVE ORDERED TO CONTINUE TUBE FEEDING AND GIVE MEDICATIONS THROUGH GT. IS AWARE OF BULGE ABOVE THE G TUBE ON THE RUQ OF THE ABD. WILL CONTINUE TO MONITOR.
[2017-02-04] MEDS: MORPHINE SULFATE 2 MG/ML SYR IVP PRN (15:09)
--- NOTE | 2017-02-04 15:56 | NUR ---
SS NOTE: SENT CURRENT MICROBIOLOGY TO [facility], RECEIVED FAX CONFIRMATION
[2017-02-04 16:00] VITALS: BP 111/63
--- NOTE | 2017-02-04 16:00 | NUR ---
PT IS IN ROOM AND SHOWS NO S/S OF DISTRESS ON FIO2 30% AND 6LPM. PT O2 SAT IS 98% AND HR 88. WILL CONTINUE TO MONITOR.
--- NOTE | 2017-02-04 18:00 | NUR ---
PT HAS SCHEDULED MEDICATIONS. I ASKED FOR ASSISTANCE FOR ADMINISTRATION OF MEDICATIONS. YEYO RN ADMINISTERED SCHEDULED MEDICATIONS. PT SHOWS NO S/S OF DISTRESS ON FIO2 30% AND 6LPM PER RN. WILL ENDORSE TO NIGHT NURSE.
[2017-02-04] MEDS: NACL 0.9% 1,000 ML IV SCH (18:39)
--- NOTE | 2017-02-04 19:00 | NUR ---
PT IS SLEEPING AND EASILY AROUSABLE. PT IS ON FIO2 30% AND 6LPM OF O2. PT GT RESIDUAL IS 90CC. PT IS ON TUBE FEEDING AT 65 ML/HR. PT SAT O2 IS 98% AND HR 88. PT SHOWS NO S/S OF DISTRESS. PT REPORT WAS GIVEN AT BEDSIDE TO NIGHT NURSE. PT ENDORSED IN STABLE CONDITION.
--- NOTE | 2017-02-04 19:30 | NUR ---
RECEIVED REPORT FROM DAY RN AT BEDSIDE, PATIENT IS AWAKE IN BED, APHASIC, WITH TRACH TO T PIECE IN PLACE AT 30%. O2 SATS 97% NO SIGN OF DISTRESS, SOFT WRIST RESTRAINTS IN PLACE, NO SIGN OF INJURY, CIRCULATION PRESENT, GTUBE TO TUBE FEEDING FIBERSOURCE, ON HOLD FOR RESIDUAL 90ML, BULDGE NOTED TO ABDOMEN ABOVE G TUBE SITE. PATIENT DOES NOT APPEAR TO BE IN PAIN WITH FLACC-0. SKIN IS INTACT. IV TO LEFT HAND PATENT AND INTACT. SAFETY MEASURES CHECKED, WILL CONTINUE TO FREQUENTLY MONITOR PATIENT.
[2017-02-04 20:00] VITALS: BP 99/64
--- NOTE | 2017-02-04 21:30 | NUR ---
PM MEDS ADMINISTERED, PATIENT TOLERATED WELL, PT WITH SOFT WRIST RESTRAINTS, ORDER RENEWED BY MD DE LUNA. NO SIGN OF INJURY OR SKIN BREAKDOWN, CIRCULATION PRESENT IN BOTH EXTREMITIES. TRACH IN PLACE O2 SATS AT 97%, WILL CONTINUE TO MONITOR.
[2017-02-04] MEDS: ATORVASTATIN 20 MG TAB GT SCH (21:34)
[2017-02-05] VITALS: BP 94/74
--- NOTE | 2017-02-05 00:20 | NUR ---
VITAL SIGNS STABLE, NO SIGN OF DISTRESS, SUCTIONED PATIENT MINIMAL WHITE SECRETIONS, TRACH IN PLACE, O2 SATS 98%, SOFT WRIST RESTRAINTS IN PLACE, NO SIGN OF INJURY, CIRCULATION PRESENT, WILL CONTINUE TO MONITOR PT CLOSELY.
[2017-02-05] MEDS: CLINDAMYCIN 600 MG in DEXTROSE 5% 50 ML IV SCH ×4 (00:35→17:18)
--- NOTE | 2017-02-05 02:20 | NUR ---
PT COUGHING, SUCTIONED PATIENT, WHITE SECRETIONS. O2 SATS 98%, NO SIGN OF DISTRESS. WILL CONTINUE TO CLOSELY MONITOR.
[2017-02-05] MEDS: ALBUTEROL SULFATE/IPRATROPIU 3 ML SOL IH SCH ×6 (03:29→23:45)
--- NOTE | 2017-02-05 03:43 | NUR ---
NOTIFIED BY RT PRIEST, SHE SUCTIONED SECRETIONS THE COLOR OF THE FEEDING, ASSESSED PATIENT, CHECKED RESIDUAL OF FEEDING, APPROX 10CC, WILL REPOSITION PATIENT AND SIT UP HIGHER, FEEDING ON HOLD, WILL REASSESS.
[2017-02-05 04:00] VITALS: BP 117/77
--- NOTE | 2017-02-05 04:05 | NUR ---
VITAL SIGNS STABLE, NO SOB OR SIGN OF DISTRESS. WILL CONTINUE TO MONITOR.
[2017-02-05 05:56] LABS: ANION GAP 7.3 (8-16); CALCIUM 7.7 mg/dL (8.5-10.1); CARBON DIOXIDE 30.5 mmol/L (21-32); CREATININE 0.7 mg/dL (0.6-1.3); POTASSIUM 3.8 mmol/L (3.5-5.1)
[2017-02-05 06:25] LABS: FERRITIN 40 ng/mL (15-150); FOLIC ACID > 20.00 ng/mL (>3.0)
[2017-02-05 06:30] LABS: BASOPHILS # (AUTO) 0.2 K/uL (0.00-0.22); BASOPHILS % (AUTO) 2.4 % (0.0-2.0); EOSINOPHILS # (AUTO) 0.2 K/uL (0-0.4); EOSINOPHILS % (AUTO) 3.2 % (0.0-4.0); HEMATOCRIT 29.4 % (36-48); HEMOGLOBIN 9.6 g/dL (12.0-16.0); LYMPHOCYTES # (AUTO) 2.4 K/uL (2.5-16.5); MEAN CORPUSCULAR HEMOGLOBIN 29 pg (27-31); MEAN CORPUSCULAR HGB CONC 33 g/dL (33-37); MEAN CORPUSCULAR VOLUME 88 fL (80-94); MONOCYTES # (AUTO) 0.5 K/uL (0.8-1.0); MONOCYTES % (AUTO) 7.7 % (1.7-9.3); NEUTROPHILS # (AUTO) 3.6 K/uL (1.8-7.7); NEUTROPHILS % (AUTO) 52.7 % (42.2-75.2); PLATELET COUNT (AUTO) 291 K/uL (140-450); RED BLOOD CELL COUNT(AUTO) 3.35 MIL/uL (4.20-5.40); RED CELL DISTRIBUTION WIDTH 14.3 % (11.6-13.7); WHITE BLOOD COUNT (AUTO) 6.9 K/uL (4.8-10.8)
--- NOTE | 2017-02-05 07:32 | NUR ---
ENDORSED PATIENT TO DAY RN AT BEDSIDE, PATIENT IN STABLE CONDITION.
--- NOTE | 2017-02-05 07:33 | NUR ---
RECEIVED REPORT FROM THE UNION ORGANISER NURSE AT BEDSIDE FOR CONTINUITY OF CARE. PT HAS HER EYES CLOSED, DOES NOT OPEN, APHASIC. NOTED THE IV ON L HAND 22G AT NS 10ML/HR. PT HAS SOFT RESTRAINTS ON BOTH HANDS. PER UNION ORGANISER NURSE, SHE WAS PULLING HER TRACH OUT. PT HAS A GT FIBERSOURCE AT 65ML/HR. IT IS ON HOLD PER UNION ORGANISER. I WILL RESTART THIS MORNING. SKIN IS INTACT BUT NOTED THE BULGING OF HERNIA ON R ABD. MD AWARE. TRACH IN PLACE AT 30% O2. PT IS COUGHING LARGE AMOUNT OF MUCUS/PHLEGM. LABS ARE ALL WITHIN NORMAL RANGE. LBM WAS 7/10. V/S WITHIN NORMAL RANGE. O2 SAT AT 95. WILL CONTINUE TO MONITOR PT.
[2017-02-05 08:00] VITALS: BP 116/67
[2017-02-05] MEDS ORDERED: FERRIC GLUCONATE 62.5 MG/5 ML AMP IV ONE (08:50)
[2017-02-05] MEDS: DOCUSATE 100 MG/10 ML UDC GT SCH ×2 (08:54→20:12)
[2017-02-05] MEDS: LACTULOSE 20 GM/30 ML UDC GT SCH ×4 (08:55→20:10)
[2017-02-05] MEDS: ASCORBIC ACID 500 MG/5 ML ORASYR GT SCH (08:55)
[2017-02-05] MEDS: PANTOPRAZOLE 40 MG INJ VIAL IVP SCH (08:55)
[2017-02-05] MEDS: MULTIVITAMIN 5 ML ORASYR GT SCH (08:55)
[2017-02-05] MEDS: METHIMAZOLE 5 MG TAB GT SCH (08:56)
[2017-02-05] MEDS: THIAMINE 100 MG TAB GT SCH (08:56)
[2017-02-05] MEDS: FUROSEMIDE 40 MG/4 ML VIAL IVP SCH (08:56)
[2017-02-05] MEDS: predniSONE 20 MG TAB GT SCH (08:56)
[2017-02-05] MEDS: RIVAROXABAN 10 MG TAB GT SCH (08:57)
--- NOTE | 2017-02-05 09:00 | NUR ---
ADMINISTERED MORNING MEDS. CHECKED FOR PLACEMENT, RESIDUAL. PT TOLERATED WELL. FEEDING RESTARTED.
[2017-02-05] MEDS: FERRIC GLUCONATE 125 MG in NACL 0.9% 100 ML IV SCH (09:03)
--- NOTE | 2017-02-05 10:30 | NUR ---
R/T HERE TO SUCTION PT.
--- NOTE | 2017-02-05 11:35 | NUR ---
REMOVED PT'S SOFT RESTRAINTS AND ADMINISTERED SOFT MITTENS. WILL CONTINUE TO MONITOR PT. FAMILY MEMBER CALLED FOR UPDATES. PT IS WANTING TO SPEAK TO DR. MERINO. SHE WILL BE HERE IN ABOUT AN HOUR.
[2017-02-05 12:00] VITALS: BP 91/54
--- NOTE | 2017-02-05 12:45 | NUR ---
02/05/17 RD FOLLOW-UP ASSESSMENT COMPLETED PLEASE REFER TO NUTRITION ASSESSMENT UNDER CARE ACTIVITY FOR ESTIMATED NUTRITIONAL NEEDS. 1. CONTINUE CURRENT EN REGIMEN - FIBERSOURCE HN AT GOAL RATE OF 65 ML/HR 2. RD TO FOLLOW-UP 3-5 DAYS; MODERATE RISK MONICA JARRETT, ROBERT
--- NOTE | 2017-02-05 13:35 | NUR ---
PT SLEEPING. NO SIGNS OF DISTRESS. WILL CONTINUE TO MONITOR PT.
[2017-02-05] MEDS: MORPHINE SULFATE 2 MG/ML SYR IVP PRN ×2 (15:35→20:00)
--- NOTE | 2017-02-05 15:38 | NUR ---
ADMINISTERED PAIN MED. PT SEEMED AGITATED. PT TOLERATED WELL. WILL CONTINUE TO MONITOR PT.
[2017-02-05] MEDS: NACL 0.9% 1,000 ML IV SCH (15:55)
[2017-02-05 16:00] VITALS: BP 102/86
--- NOTE | 2017-02-05 16:20 | NUR ---
SPOKE TO DR. STEELE. GAVE HIM REPORT. HE WILL PUT SOME ORDERS IN FOR HER UTI. WILL AWAIT ORDERS.
--- NOTE | 2017-02-05 17:29 | NUR ---
STUDENT NURSE GIVING MEDS WITH INSTRUCTOR.
[2017-02-05] MEDS: NITROFURANTOIN 100 MG CAP GT SCH (17:30)
--- NOTE | 2017-02-05 18:53 | NUR ---
PT AWAKE. VERY ALERT. NO SIGNS OF DISTRESS. NO SIGNS OF PAIN. WILL CONTINUE TO MONITOR PT.
--- NOTE | 2017-02-05 19:15 | NUR ---
PT HAD KNOCKED OUT THE TRACH ONCE AGAIN (THIRD TIME) WITH HER MITTENS. RT AND ER MD CAME AND REPLACED THE TRACH. PT TOLERATED WELL. FAMILY WOULD LIKE TO SPEAK TO THE DR REGARDING OPTIONS. ENDORSED PT TO THE PROGRAMMING ENGINEER NURSE AT BEDSIDE FOR CONTINUITY OF CARE. PT IS IN STABLE CONDITION.
--- NOTE | 2017-02-05 19:20 | NUR ---
RCV'D CALL FROM RT YAIMA THAT PT PULLED OUT HER TRACH. PT'S SPO2 REMAINED 94-98% WITH NO DISTRESS. TRACH WAS INSERTED BY ER DR COLLIER WITH PRESENCE OF ME RT HENNY ALMAZAN AND FAMILY MEMBERS. NO SOB OR DISTRESS NOTED. INSERTED SAME TRACH (PORTEX 6 CUFFLESS) PT HAD WITH OBTURATOR. TRACH IS NOW IN PLACE AND SECURED. NO SOB OR DISTRESS NOTED. RT YAIMA AT BEDSIDE.
--- NOTE | 2017-02-05 19:33 | NUR ---
FOUND PATIENT WITH TRACH PARTIALLY OUT AND NOTIFIED RN AND ER DOCTOR. PATIENT WAS STABLE AND SATURATION WAS 96 HEART RATE WAS 88 NO RESP DISTRESS. AIRWAY WAS NOT PATENT AND RT WAS UNABLE TO SUCTION PATIENT. ER DOCTOR AND RT PLACED TRACH BACK IN (PORTEX 6). PATIENT SPO2 98 HEART RATE 88 AIRWAY IS NOW PATENT AND CLEAR PATIENT WAS SUCTIONED THICK SECRETIONS. PATIENT HAS SOFT RESTRAINTS ON AND BREATHING TX WAS ADMINISTERED
--- NOTE | 2017-02-05 19:34 | NUR ---
RECEIVED REPORT FROM AM NURSE. PT FAMILY AT BEDSIDE. PT IS RESTING IN BED, APHASIC, BEDBOUND. WAS NOTIFIED THAT PT HAD PULLED OUT TRACH, RT AND ER DOCTOR WAS IN TO PLACE TRACH BACK IN. PT IS IN STABLE CONDITION, CONTINUOUS SPO2 NOTED AT 100%. VSS, NO S/S OF ACUTE DISTRESS. NOTIFIED BY PT'S DAUGHTER THAT PT LOOKS LIKE SHE IS IN PAIN, WILL ADMINISTER PAIN MED ORDERED. TRACHEOSTOMY WITH T-PIECE IN PLACE. MECHANIC AND WELDER IN PLACE. GTUBE NOTED, CONTINUOUS FEEDING ADMINISTERING WELL, RESIDUAL 50ML, PT TOLERATING WELL. ABD HERNIA NOTED. DISCUSSED AND REVIEWED PLAN OF CARE WITH PT AND PT'S FAMILY. PT'S FAMILY VERBALIZES UNDERSTANDING. WILL CONTINUE TO GIVE CONSTANT REINFORCEMENT TO TEACHING. SAFETY MEASURES ENSURED. CALL LIGHT WITHIN REACH. WILL CONTINUE TO MONITOR.
[2017-02-05 20:00] VITALS: BP 112/77
--- NOTE | 2017-02-05 20:00 | NUR ---
ADMINISTERED PAIN MEDICATION ORDERED FOR PT PAIN AND DISCOMFORT PER PT'S FAMILY. PT IS COUGHING INTERMITTENTLY WITH MODERATE SPUTUM. PT IS SUCTIONED, TOLERATED WELL. SPO2 99%. ORAL CARE PROVIDED. DR ENRIQUE AT BEDSIDE DISCUSSING PT CONDITION AND PLAN OF CARE WITH FAMILY. NO FURTHER ORDERS AT THIS TIME, WILL CONTINUE TO MONITOR.
[2017-02-05] MEDS: ATORVASTATIN 20 MG TAB GT SCH (20:12)
--- NOTE | 2017-02-05 20:56 | NUR ---
GTUBE PLACEMENT VERIFIED, RESIDUAL 50ML. ADMINISTERED DUE MEDICATIONS WITH EDUCATION. WILL CONTINUE TO REINFORCE TEACHING. PT TOLERATED WELL. PT IS SUCTIONED DUE TO SECRETIONS. PT IS CLEANED, TURNED AND REPOSITIONED WITH CHOP SAW OPERATOR. PT TOLERATED WELL. ALL NEEDS MET. SAFETY MEASURES ENSURED. CALL LIGHT WITHIN REACH. WILL CONTINUE TO MONITOR.
[2017-02-06] VITALS: BP 108/61
--- NOTE | 2017-02-06 | NUR ---
PT SLEEPING COMFORTABLY. ALL NEEDS MET. SPO2 99%, PT INTERMITTENTLY COUGHING WITH MODERATE SECRETION, PT IS SUCTIONED, PT TOLERATED WELL. PT IS TURNED AND REPOSITIONED, OFFLOADED PRESSURE AREAS. SAFETY MEASURES ENSURED. CALL LIGHT WITHIN REACH.
[2017-02-06] MEDS: ALBUTEROL SULFATE/IPRATROPIU 3 ML SOL IH SCH ×4 (03:12→15:50)
[2017-02-06 04:00] VITALS: BP 105/69
--- NOTE | 2017-02-06 04:00 | NUR ---
PT CLEANED, TURNED AND REPOSITIONED WITH DIGITAL IMAGING TECHNICIAN, OFFLOADED PRESSURE AREAS. ALL NEEDS MET. CONDITION STABLE. SAFETY MEASURES ENSURED. WILL CONTINUE TO MONITOR.
--- NOTE | 2017-02-06 04:15 | NUR ---
RT IN TO SUCTION PT, PT COUGHING INTERMITTENTLY WITH MODERATE SECRETIONS BUT TOLERATED WELL, SPO2 99%. NO S/S OF ACUTE DISTRESS. DRESSING OF TRACH CHANGED BY RT, PT TOLERATED WELL. SAFETY MEASURES ENSURED. WILL CONTINUE TO MONITOR.
[2017-02-06 06:35] LABS: BASOPHILS # (AUTO) 0.2 K/uL (0.00-0.22); BASOPHILS % (AUTO) 2.4 % (0.0-2.0); EOSINOPHILS # (AUTO) 0.2 K/uL (0-0.4); EOSINOPHILS % (AUTO) 2.6 % (0.0-4.0); HEMATOCRIT 31.1 % (36-48); LYMPHOCYTES # (AUTO) 2.5 K/uL (2.5-16.5); LYMPHOCYTES % (AUTO) 31.4 % (20.5-51.1); MEAN CORPUSCULAR HEMOGLOBIN 28 pg (27-31); MEAN CORPUSCULAR HGB CONC 32 g/dL (33-37); MEAN CORPUSCULAR VOLUME 87 fL (80-94); MONOCYTES # (AUTO) 0.6 K/uL (0.8-1.0); NEUTROPHILS # (AUTO) 4.4 K/uL (1.8-7.7); NEUTROPHILS % (AUTO) 56.6 % (42.2-75.2); PLATELET COUNT (AUTO) 345 K/uL (140-450); RED BLOOD CELL COUNT(AUTO) 3.57 MIL/uL (4.20-5.40); RED CELL DISTRIBUTION WIDTH 14.8 % (11.6-13.7); WHITE BLOOD COUNT (AUTO) 7.9 K/uL (4.8-10.8)
[2017-02-06 06:50] LABS: ANION GAP 9.1 (8-16); CALCIUM 7.7 mg/dL (8.5-10.1); CARBON DIOXIDE 31.5 mmol/L (21-32); CREATININE 0.7 mg/dL (0.6-1.3); POTASSIUM 3.6 mmol/L (3.5-5.1)
--- NOTE | 2017-02-06 07:34 | NUR ---
ENDORSED PLAN OF CARE TO AM NURSE. CONDITION STABLE.
--- NOTE | 2017-02-06 07:35 | NUR ---
RECEIVED REPORT FROM THE DEWATERING FILTERING SUPERVISOR NURSE AT BEDSIDE FOR CONTINUITY OF CARE. PT SLEPT WELL LAST NIGHT. NO NEED FOR RESTRAINTS. UPDATED THE BOARD AN INTRODUCED MYSELF. NOTED THE L HAND 22G NS AT 10ML. PATENT AND INTACT. GTUBE FEEDING CONTINUOUS AT 65ML/HR, FLUSHING W/ H20 AT 25ML Q 6 HRS. SOFT MITTENS STILL ON. TRACH IN PLACE, R/T HERE GIVING HER BREATHING TX. O2 AT 28% AND AT 6 L. V/S WITHIN NORMAL RANGE. O2 SAT AT 94%. PER DR STEELE LAST NIGHT, D/C CLEOCIN AND ADDED LEVAQUIN AND MACROBID G TUBE. WILL CONTINUE TO MONITOR PT.
[2017-02-06 08:00] VITALS: BP 83/48
[2017-02-06] MEDS ORDERED: RIVAROXABAN 10 MG TAB GT SCH (08:00)
[2017-02-06] MEDS: LACTULOSE 20 GM/30 ML UDC GT SCH ×3 (08:07→17:11)
[2017-02-06] MEDS: MULTIVITAMIN 5 ML ORASYR GT SCH (08:07)
[2017-02-06] MEDS: ASCORBIC ACID 500 MG/5 ML ORASYR GT SCH (08:07)
[2017-02-06] MEDS: DOCUSATE 100 MG/10 ML UDC GT SCH (08:07)
[2017-02-06] MEDS: NITROFURANTOIN 100 MG CAP GT SCH ×2 (08:08→17:11)
[2017-02-06] MEDS: THIAMINE 100 MG TAB GT SCH (08:08)
[2017-02-06] MEDS: predniSONE 20 MG TAB GT SCH (08:08)
[2017-02-06] MEDS: METHIMAZOLE 5 MG TAB GT SCH (08:08)
[2017-02-06] MEDS: PANTOPRAZOLE 40 MG INJ VIAL IVP SCH (08:09)
[2017-02-06] MEDS: FUROSEMIDE 40 MG/4 ML VIAL IVP SCH (08:09)
--- NOTE | 2017-02-06 08:15 | NUR ---
ADMINISTERED MORNING MEDS VIA G TUBE. CHECKED FOR PLACEMENT, CHECKED FOR RESIDUAL-0, CHECKED FOR PATENCY. PT TOLERATED WELL. STILL QUITE OF BIT OF SECRETIONS. SUCTIONED PT. PT IS CALM AND RESTING. NO SIGNS OF PAIN. FLACC-0. WILL CONTINUE TO MONITOR PT.
[2017-02-06] MEDS ORDERED: LEVOFLOXACIN 500 MG TAB GT SCH (09:00)
[2017-02-06] MEDS ORDERED: LACTOBACILLUS RHAMNOSUS GG 1 EACH CAP PO SCH (09:00)
[2017-02-06] MEDS: FERRIC GLUCONATE 125 MG in NACL 0.9% 100 ML IV SCH (10:00)
--- NOTE | 2017-02-06 10:11 | NUR ---
PT RESTING COMFORTABLY. NO SIGNS OF DISTRESS. SUCTIONED PT. WILL CONTINUE TO MONITOR PT.
--- NOTE | 2017-02-06 10:19 | NUR ---
SS NOTE: PER NOEMI FROM [facility] ([phone]), PT CAN GO TO ROOM 26B UNDER DR. Telly OLMSTEAD ANYTIME AFTER 1900 TODAY. ISAAC LIMON AND DR. PEARSON MADE AWARE.
--- NOTE | 2017-02-06 10:55 | NUR ---
LOC ASLEEP EASILY AWAKENS SATURATION 96% ON A COOL AEROSOL AT 28%/6LPM ON AND FUNCTIONING WELL TO A TRACH MASK AEROSOL WATER ADEQUATE LEVEL BREATH SOUNDS COARSE RHONCHI BILATERAL WITH GOOD CHEST RISE DEEP TRACHEAL SUCTION FOR COPIOUS THICK TO SEMI THICK YELLOW SECRETIONS AIRWAY PATENT POST HHN THERAPY TRACH CARE DONE NOTED CHANGED: DISPOSABLE INNER CANNULA, CAITLIN TRACH TIE, DRAIN SPONGE AND TRACH MASK TOLERATED PROCEDURE WELL WITHOUT INCIDENT NOTED
--- NOTE | 2017-02-06 11:25 | NUR ---
SHANTI R/T JUST GAVE HER BREATHING TX AND TRACH CARE. PT TOLERATED WELL.
[2017-02-06] MEDS ORDERED: NITR100C7 GT (11:49)
[2017-02-06] MEDS ORDERED: LEVO500T98 GT (11:49)
[2017-02-06] MEDS ORDERED: LACT10CA GT (11:56)
[2017-02-06] MEDS ORDERED: FERR325E14 GT (11:59)
[2017-02-06 12:00] VITALS: BP 123/99
[2017-02-06] MEDS ORDERED: QUET25TA PO (13:20)
--- NOTE | 2017-02-06 13:23 | NUR ---
CM NOTE PATIENT TO BE PICKED UP VIA GURNEY BY [facility] [place] [facility] [place] 1900. MADE AWARE THAT PATIENT WILL BE NEEDING 02 FOR TRANSPORT AND IS ON ISOLATION PRECAUTIONS. EDUARDO PINEDA MADE AWARE.
--- NOTE | 2017-02-06 15:50 | NUR ---
ASLEEP EASILY AWAKENS BREATH SOUNDS RHONCHI BILATERAL WITH GOOD CHEST RISE DEEP TRACHEAL SUCTION FOR LARGE THICK PALE YELLOW SECRETIONS ORAL SUCTION FOR COPIOUS THICK CLEAR SECRETIONS AIRWAY PATENT HHN THERAPY GIVEN ORDERED COOL AEROSOL ON AND FUNCTIONING WELL CHANGED STERILE WATER FOR AEROSOL MOBILE PULSE OXIMETER REMAINS AT BEDSIDE ON AND FUNCTIONING WELL
[2017-02-06 16:00] VITALS: BP 114/63
[2017-02-06] MEDS: NACL 0.9% 1,000 ML IV SCH (16:25)
--- NOTE | 2017-02-06 17:32 | NUR ---
SPOKE TO DR. STEELE REGARDING THE RESULTS OF ULCER ON BACK. ENTEROCOCCUS FAECALIS-VRE . 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 NO CHANGE IN TX. NO ADDITIONAL TX NECESSARY.
--- NOTE | 2017-02-06 18:11 | NUR ---
PT IS RESTING COMFORTABLY. NO SIGNS OF DISTRESS. SPOKE TO GRAND DAUGHTER RE [place] [facility] [place] SHE WILL RELAY THE MESSAGE TO HER MOM. CALL[place] MARY [place] [facility] [place] GAVE FULL REPORT. PT IS READY FOR TRANSPORT. WILL AWAIT TRANSPORTATION. THEY ARE SCHEDULED TO ARRIVE AT 1900. WILL CONTINUE TO MONITOR PT.
--- NOTE | 2017-02-06 19:30 | NUR ---
[facility] IS HERE FOR [place]SP[place] [facility] [place] GAVE FULL REPORT. PT ALL READY TO GO. PT IN STABLE CONDITION.
--- NOTE | 2017-02-06 19:43 | NUR ---
PT WHEELED OUT ON [facility] WITH SUPERVISOR POULTRY HATCHERY. PT IN STABLE CONDITION.
[2017-02-11 09:03] LABS: TRANSFERRIN 177 mg/dL (200-370)
== END 2017-02-06 19:43 | DRG 720 ==
LOC: MED 02:39 → MIC 05:59 → MTU 02-03 15:25
PROVIDERS: ADMIT Family Medicine; ATTEND Family Medicine
PROC: 02HV33Z Insertion of Infusion Device into Superior Vena Cava, Percutaneous Approach (ICD-10-PCS; 2017-02-02)
PROC: 0B21XFZ Change Tracheostomy Device in Trachea, External Approach (ICD-10-PCS; principal; 2017-02-03)
PROC: 0B21XFZ Change Tracheostomy Device in Trachea, External Approach (ICD-10-PCS; 2017-02-04)
DX: A41.9 Sepsis, unspecified organism (principal); N17.0 Acute kidney failure with tubular necrosis; J96.21 Acute and chronic respiratory failure with hypoxia; R65.21 Severe sepsis with septic shock; J69.0 Pneumonitis due to inhalation of food and vomit; G93.41 Metabolic encephalopathy; L89.151 Pressure ulcer of sacral region, stage 1; E43 Unspecified severe protein-calorie malnutrition; E86.0 Dehydration; N39.0 Urinary tract infection, site not specified; D63.8 Anemia in other chronic diseases classified elsewhere; Z93.1 Gastrostomy status; I35.0 Nonrheumatic aortic (valve) stenosis; F03.90 Unspecified dementia, unspecified severity, without behavioral disturbance, psychotic disturbance, mood disturbance, and anxiety; E87.8 Other disorders of electrolyte and fluid balance, not elsewhere classified; I10 Essential (primary) hypertension; G40.909 Epilepsy, unspecified, not intractable, without status epilepticus; E83.51 Hypocalcemia; E87.6 Hypokalemia; K56.41 Fecal impaction; D50.9 Iron deficiency anemia, unspecified; E11.9 Type 2 diabetes mellitus without complications; E87.1 Hypo-osmolality and hyponatremia; Z86.73 Personal history of transient ischemic attack (TIA), and cerebral infarction without residual deficits; Z88.0 Allergy status to penicillin; Z88.8 Allergy status to other drugs, medicaments and biological substances; Z87.891 Personal history of nicotine dependence; Z86.718 Personal history of other venous thrombosis and embolism; Z99.11 Dependence on respirator [ventilator] status; Z93.0 Tracheostomy status; Z68.24 Body mass index [BMI] 24.0-24.9, adult; Z82.3 Family history of stroke; Z56.0 Unemployment, unspecified; Z82.49 Family history of ischemic heart disease and other diseases of the circulatory system
CPT/HCPCS: 36415; 36600; 70450; 71010; 74000; 80048; 80053; 81001; 82150; 82310; 82607; 82728; 82746; 82803; 83036; 83540; 83605; 83690; 83735; 83880; 84100; 84436; 84439; 84443; 84479; 84484; 85025; 85045; 85610; 85730; 87040; 87070; 87081; 87086; 87186; 87205; 89220; 93005; 94640; 96361; 96365; 96368; 99285; C9113; J1642; J1940; J1956; J2270; J2916; J3370; J3490; J7030; J7060; J7512; J7613; J7620; Q0092

== ENCOUNTER 2017-03-01 23:39 | Inpatient (IN) | payer MEDICAID ==
[~2017-03-01] VITALS: Ht 152.4 cm; Wt 63.5 kg
[~2017-03-01 23:39] MED LIST: ACET-1182 GT; ACET-2869 GT; ALBUTEROL INH; ASCO500T45 GT; ATOR10TA GT; ATROVENT INH; BISA-213 RC; CLON0.2T15 GT; DOCU100C14 GT; ESOM40EC GT; FERR325E14 GT; LACT10CA GT; LACT10SO11 GT; LEVO500T98 GT; LISI10TA11 GT; MAGN400S60 GT; METH-426 GT; MULT1SGL58 GT; NA P135N19 RC; NITR100C7 GT; NUTR30LI3 GT; ONDA4TAB GT; PRED20TA5 GT; QUET25TA PO; RIVA20TA GT; SCOP1PAT TP; THIA100T34 GT
[2017-03-01 23:50] VITALS: BP 67/36
[2017-03-01] MEDS ORDERED: NACL 0.9% 2,000 ML IV ONE (23:55)
[2017-03-02] VITALS (61 sets, daily range): BP systolic 81–133; BP diastolic 42–95
[2017-03-02 00:26] LABS: HEMATOCRIT 35.4 % (36-48); HEMOGLOBIN 11.5 g/dL (12.0-16.0); MEAN CORPUSCULAR HEMOGLOBIN 29 pg (27-31); MEAN CORPUSCULAR HGB CONC 32 g/dL (33-37); MEAN CORPUSCULAR VOLUME 90 fL (80-94); PLATELET COUNT (AUTO) 307 K/uL (140-450); RED BLOOD CELL COUNT(AUTO) 3.94 MIL/uL (4.20-5.40); RED CELL DISTRIBUTION WIDTH 15.9 % (11.6-13.7); WHITE BLOOD COUNT (AUTO) 18.4 K/uL (4.8-10.8)
[2017-03-02 00:39] LABS: BAND % (MANUAL) 10 % (0-8); LYMPHOCYTES % (MANUAL) 9 % (20-46); MONOCYTES % (MANUAL) 2 % (5-12); NEUTROPHILS % (MANUAL) 79 (43-65)
[2017-03-02 00:50] LABS: ALBUMIN 2.1 g/dL (3.4-5.0); ANION GAP 12.2 (8-16); CALCIUM 7.9 mg/dL (8.5-10.1); CARBON DIOXIDE 26.7 mmol/L (21-32); CREATININE 2.6 mg/dL (0.6-1.3); POTASSIUM 3.9 mmol/L (3.5-5.1); TOTAL BILIRUBIN 0.3 mg/dL (0.0-1.0)
[2017-03-02] MEDS ORDERED: LEVOFLOXACIN 750 MG/D5W PREMIX 150 ML IV ONE (01:10)
[2017-03-02] MEDS ORDERED: CLINDAMYCIN 600 MG in DEXTROSE 5% 50 ML IV ONE (01:10)
[2017-03-02] MEDS ORDERED: NOREPINEPHRINE 4 MG in DEXTROSE 5% 250 ML IV ONE ×2 (01:20→02:40)
[2017-03-02] MEDS ORDERED: CLINDAMYCIN 600 MG/4 ML VIAL ONE (01:27)
[2017-03-02 01:56] LABS: APPEARANCE,URINE CLOUDY (CLEAR); BILIRUBIN,URINE NEGATIVE (NEGATIVE); BLOOD, URINE 1+ (NEGATIVE); COLOR,URINE YELLOW (YELLOW); LEUKOCYTE ESTERASE ,URINE 3+ (NEGATIVE); NITRITE, URINE NEGATIVE (NEGATIVE); PROTEIN,URINE 1+ (NEGATIVE); UGLUCOSE NEGATIVE (NEGATIVE); UROBILINOGEN,URINE 0.2 EU/dL (0.2 - 1)
[2017-03-02 02:06] LABS: BACTERIA,URINE 4+ /HPF (None Seen); RBC,URINE 0-5 (RARE) /HPF (0-5); SQUAMOUS EPITHELIAL CELL,UR 4-10 (MOD) /LPF (0-3 (FEW)); WBC,URINE TOO MANY TO COUNT /HPF (0-5)
[2017-03-02] MEDS ORDERED: HYDROcodone/APAP 7.5/325 MG 1 TAB PO PRN (02:15)
[2017-03-02] MEDS ORDERED: DOCUSATE SODIUM 100 MG GELCAP PO PRN (02:15)
[2017-03-02] MEDS ORDERED: ONDANSETRON 4 MG/2 ML VIAL IM/IVP PRN (02:15)
[2017-03-02] MEDS ORDERED: ACETAMINOPHEN 325 MG TAB PO PRN (02:15)
[2017-03-02] MEDS ORDERED: CLONIDINE HCL GT SCH (02:20)
[2017-03-02] MEDS ORDERED: MAGNESIUM HYDROXIDE 2400 MG/30 ML UDC GT SCH (02:20)
[2017-03-02] MEDS ORDERED: BISACODYL 10 MG SUPP RC SCH (02:20)
[2017-03-02] MEDS ORDERED: PANTOPRAZOLE 40 MG INJ VIAL IVP ONE (02:20)
[2017-03-02] MEDS ORDERED: NOREPINEPHRINE 4 MG/4 ML VIAL IV ONE (02:29)
[2017-03-02] MEDS ORDERED: INSULIN LISPRO SLIDING SCALE 100 UNITS/ML VIAL SUBQ PRN (02:40)
[2017-03-02 03:02] LABS: MAGNESIUM 2.9 mg/dL (1.8-2.4); PHOSPHORUS 4.7 mg/dL (2.5-4.9)
[2017-03-02] MEDS ORDERED: NACL 0.9% 1,000 ML IV ONE (03:15)
[2017-03-02] MEDS ORDERED: FINA5TAB5 PO (03:20)
[2017-03-02 03:23] LABS: THYROID STIMULATING HORMONE 0.01 uIU/mL (0.34-3.74)
[2017-03-02 04:14] LABS: LACTIC ACID 3.2 mmol/L (0.4-2.0)
[2017-03-02] MEDS ORDERED: ATROVENT INH SCH (06:00)
[2017-03-02] MEDS ORDERED: ALBUTEROL INH SCH (06:00)
[2017-03-02 08:13] LABS: AMPHETAMINE, URINE NEG. ng/ml (NEG <=1000); BARBITURATE, URINE NEG. ng/ml (NEG <=200); BENZODIAZEPINE, URINE NEG. ng/mL (NEG <=200); CANNABINOID, URINE NEG. ng/mL (NEG <=50); COCAINE, URINE NEG. ng/mL (NEG <=300); OPIATE, URINE NEG. ng/mL (NEG <=2000); PHENCYCLIDINE SCREEN,URINE NEG. ng/mL (NEG <=25)
[2017-03-02] MEDS: NACL 0.9% 1,000 ML IV SCH ×2 (08:30→18:54)
[2017-03-02] MEDS ORDERED: LANSOPRAZOLE 30 MG CAPDR GT SCH (09:00)
[2017-03-02] MEDS: LISINOPRIL 10 MG TAB GT SCH (09:00)
[2017-03-02] MEDS ORDERED: NON-FORMULARY ITEM (Multivitamin (Multivitamins) 1 CAP) GT SCH (09:00)
[2017-03-02] MEDS ORDERED: NON-FORMULARY ITEM (Esomeprazole Magnesium* (Nexium*) 1 CAP) GT SCH (09:00)
[2017-03-02] MEDS ORDERED: NON-FORMULARY ITEM (Amino Acids/Protein Hydrolys (Pro-Stat Sugar Free Liquid Pkt) 30 ML) GT SCH (09:00)
[2017-03-02] MEDS: LACTULOSE 20 GM/30 ML UDC GT SCH ×4 (10:21→21:03)
[2017-03-02] MEDS: METHIMAZOLE 5 MG TAB GT SCH (10:21)
[2017-03-02] MEDS: ASCORBIC ACID 500 MG TAB GT SCH (10:22)
[2017-03-02] MEDS: FERROUS SULFATE 325 MG TABEC PO SCH (10:22)
[2017-03-02] MEDS: DOCUSATE SODIUM 100 MG GELCAP PO SCH ×2 (10:23→21:05)
[2017-03-02] MEDS: LACTOBACILLUS RHAMNOSUS GG 1 EACH CAP GT SCH (10:23)
[2017-03-02] MEDS: THIAMINE 100 MG TAB GT SCH (10:23)
[2017-03-02 11:27] LABS: HEMATOCRIT 33.3 % (36-48); HEMOGLOBIN 10.9 g/dL (12.0-16.0); MEAN CORPUSCULAR HEMOGLOBIN 29 pg (27-31); MEAN CORPUSCULAR HGB CONC 33 g/dL (33-37); MEAN CORPUSCULAR VOLUME 89 fL (80-94); PLATELET COUNT (AUTO) 287 K/uL (140-450); RED BLOOD CELL COUNT(AUTO) 3.75 MIL/uL (4.20-5.40); RED CELL DISTRIBUTION WIDTH 15.6 % (11.6-13.7); WHITE BLOOD COUNT (AUTO) 18.9 K/uL (4.8-10.8)
[2017-03-02 11:54] LABS: BAND % (MANUAL) 9 % (0-8); LYMPHOCYTES % (MANUAL) 10 % (20-46); MONOCYTES % (MANUAL) 2 % (5-12); NEUTROPHILS % (MANUAL) 76 (43-65)
[2017-03-02 11:55] LABS: BASOPHILS % (MANUAL) 1 % (0-2); EOSINOPHILS % (MANUAL) 2 % (0-4)
[2017-03-02 11:56] LABS: PLATELET ESTIMATE ADEQUATE
[2017-03-02] MEDS ORDERED: SCOP1PAT TP (12:19)
[2017-03-02] MEDS ORDERED: QUET25TA PO (12:19)
[2017-03-02] MEDS ORDERED: RIVA20TA GT (12:19)
[2017-03-02] MEDS: NOREPINEPHRINE 4 MG in DEXTROSE 5% 250 ML IV PRN ×3 (12:56→21:33)
[2017-03-02 13:26] LABS: INR 1.1 (0.8-1.2); PARTIAL THROMBOPLASTIN TIME 22.7 secs (22-35.6)
[2017-03-02] MEDS ORDERED: LORazepam 2 MG/ML VIAL IVP SCH ×2 (13:33→14:05)
[2017-03-02] MEDS: MORPHINE SULFATE 2 MG/ML SYR IVP PRN (16:19)
[2017-03-02] MEDS ORDERED: PHENYTOIN 100 MG/4 ML UDC GT SCH (17:00)
[2017-03-02] MEDS: PHENYTOIN 100 MG/4 ML UDC GT SCH (17:07)
[2017-03-02] MEDS: ALBUTEROL SULFATE/IPRATROPIU 3 ML SOL IH SCH (19:05)
[2017-03-02] MEDS ORDERED: BLOOD GLUCOSE MONITORING 1 DEV DEV FS SCH (21:00)
[2017-03-02] MEDS: ATORVASTATIN 20 MG TAB GT SCH (21:04)
[2017-03-03] VITALS (52 sets, daily range): BP systolic 92–165; BP diastolic 36–84
[2017-03-03] MEDS: ALBUTEROL SULFATE/IPRATROPIU 3 ML SOL IH SCH ×4 (00:54→18:40)
[2017-03-03] MEDS: NOREPINEPHRINE 4 MG in DEXTROSE 5% 250 ML IV PRN (04:25)
[2017-03-03] MEDS: LANSOPRAZOLE 30 MG CAPDR GT SCH (07:00)
[2017-03-03] MEDS: BLOOD GLUCOSE MONITORING 1 DEV DEV FS SCH ×4 (07:30→20:50)
[2017-03-03 07:51] LABS: BASOPHILS # (AUTO) 0.3 K/uL (0.00-0.22); BASOPHILS % (AUTO) 2.4 % (0.0-2.0); EOSINOPHILS # (AUTO) 0.3 K/uL (0-0.4); EOSINOPHILS % (AUTO) 2.4 % (0.0-4.0); HEMATOCRIT 30.4 % (36-48); HEMOGLOBIN 9.9 g/dL (12.0-16.0); LYMPHOCYTES # (AUTO) 2.2 K/uL (2.5-16.5); LYMPHOCYTES % (AUTO) 17.2 % (20.5-51.1); MEAN CORPUSCULAR HEMOGLOBIN 29 pg (27-31); MEAN CORPUSCULAR HGB CONC 33 g/dL (33-37); MEAN CORPUSCULAR VOLUME 89 fL (80-94); MONOCYTES # (AUTO) 0.5 K/uL (0.8-1.0); NEUTROPHILS # (AUTO) 9.2 K/uL (1.8-7.7); PLATELET COUNT (AUTO) 240 K/uL (140-450); RED BLOOD CELL COUNT(AUTO) 3.42 MIL/uL (4.20-5.40); RED CELL DISTRIBUTION WIDTH 15.5 % (11.6-13.7); WHITE BLOOD COUNT (AUTO) 12.5 K/uL (4.8-10.8)
[2017-03-03 07:57] LABS: ANION GAP 10.4 (8-16); CALCIUM 7.4 mg/dL (8.5-10.1); CREATININE 0.8 mg/dL (0.6-1.3); POTASSIUM 3.4 mmol/L (3.5-5.1)
[2017-03-03 08:03] LABS: ALBUMIN 1.8 g/dL (3.4-5.0); MAGNESIUM 1.9 mg/dL (1.8-2.4); PHOSPHORUS 2.3 mg/dL (2.5-4.9); TOTAL BILIRUBIN 0.2 mg/dL (0.0-1.0); TOTAL PROTEIN, SERUM 5.6 g/dL (6.4-8.2)
[2017-03-03] MEDS ORDERED: NITROFURANTOIN 100 MG CAP PO SCH ×2 (09:00→17:00)
[2017-03-03] MEDS: LISINOPRIL 10 MG TAB GT SCH (09:00)
[2017-03-03] MEDS: PHENYTOIN 100 MG/4 ML UDC GT SCH ×3 (09:56→16:59)
[2017-03-03] MEDS: LACTOBACILLUS RHAMNOSUS GG 1 EACH CAP GT SCH (09:56)
[2017-03-03] MEDS: LACTULOSE 20 GM/30 ML UDC GT SCH ×4 (09:56→21:00)
[2017-03-03] MEDS: MULTIVITAMIN 5 ML ORASYR GT SCH (09:57)
[2017-03-03] MEDS: THIAMINE 100 MG TAB GT SCH (09:57)
[2017-03-03] MEDS: METHIMAZOLE 5 MG TAB GT SCH (09:57)
[2017-03-03] MEDS: FERROUS SULFATE 325 MG TABEC PO SCH (09:57)
[2017-03-03] MEDS: ASCORBIC ACID 500 MG TAB GT SCH (09:58)
[2017-03-03] MEDS: DOCUSATE SODIUM 100 MG GELCAP PO SCH (09:58)
[2017-03-03 13:19] LABS: T4 (THYROXINE) 4.1 ug/dL (4.5 - 12.0)
[2017-03-03] MEDS ORDERED: ACETAMINOPHEN 650 MG/20.3 ML UDC GT PRN (13:25)
[2017-03-03] MEDS ORDERED: ACETAMINOPHEN 650 MG/20.3 ML UDC PO PRN (13:25)
[2017-03-03] MEDS ORDERED: DOCUSATE 100 MG/10 ML UDC GT PRN (13:25)
[2017-03-03] MEDS ORDERED: PROBIOTIC SCREEN 1 EA MISC MC PRN (15:50)
[2017-03-03] MEDS: LEVOFLOXACIN 750 MG/D5W PREMIX 150 ML IV SCH (15:53)
[2017-03-03] MEDS: NACL 0.9% 1,000 ML IV SCH ×2 (19:01)
[2017-03-03] MEDS: ATORVASTATIN 20 MG TAB GT SCH (20:53)
[2017-03-03] MEDS: DOCUSATE 100 MG/10 ML UDC GT SCH (20:53)
[2017-03-03] MEDS ORDERED: LACTULOSE 20 GM/30 ML UDC PO SCH (21:00)
[2017-03-03] MEDS ORDERED: MAGNESIUM CITRATE 300 ML BTL GT ONE (22:00)
[2017-03-03] MEDS: LINEZOLID 600MG PREMIX 300 ML IV SCH (22:59)
[2017-03-04] VITALS (12 sets, daily range): BP systolic 114–161; BP diastolic 56–92
[2017-03-04] MEDS: ALBUTEROL SULFATE/IPRATROPIU 3 ML SOL IH SCH ×4 (00:16→19:01)
[2017-03-04] MEDS ORDERED: MAGNESIUM HYDROXIDE 2400 MG/30 ML UDC GT PRN (02:20)
[2017-03-04] MEDS ORDERED: BISACODYL 10 MG SUPP RC PRN (02:20)
[2017-03-04] MEDS: LANSOPRAZOLE 30 MG CAPDR GT SCH (05:32)
[2017-03-04] MEDS: BLOOD GLUCOSE MONITORING 1 DEV DEV FS SCH ×4 (06:47→20:36)
[2017-03-04] MEDS: LACTULOSE 20 GM/30 ML UDC GT SCH ×4 (08:35→21:05)
[2017-03-04] MEDS: LACTOBACILLUS RHAMNOSUS GG 1 EACH CAP GT SCH (08:35)
[2017-03-04] MEDS: DOCUSATE 100 MG/10 ML UDC GT SCH ×2 (08:35→21:05)
[2017-03-04] MEDS: METHIMAZOLE 5 MG TAB GT SCH (08:36)
[2017-03-04] MEDS: PHENYTOIN 100 MG/4 ML UDC GT SCH ×3 (08:36→19:19)
[2017-03-04] MEDS: ASCORBIC ACID 500 MG/5 ML ORASYR GT SCH (08:37)
[2017-03-04] MEDS: MULTIVITAMIN 5 ML ORASYR GT SCH (08:37)
[2017-03-04] MEDS: THIAMINE 100 MG TAB GT SCH (08:37)
[2017-03-04] MEDS: LINEZOLID 600MG PREMIX 300 ML IV SCH ×2 (08:38→21:05)
[2017-03-04] MEDS: SENNA 8.6 MG TAB PO SCH ×3 (08:39→19:19)
[2017-03-04] MEDS: NACL 0.9% 1,000 ML IV SCH (08:55)
[2017-03-04] MEDS: CLINICAL MONITORING MC SCH (09:00)
[2017-03-04] MEDS ORDERED: LEVOFLOXACIN 500 MG/D5W PREMIX 100 ML IV SCH (09:00)
[2017-03-04] MEDS ORDERED: POTASSIUM CHLORIDE 20% 40 MEQ/15 ML UDC GT SCH (09:03)
[2017-03-04] MEDS: LISINOPRIL 10 MG TAB GT SCH (09:17)
[2017-03-04 09:42] LABS: HEMATOCRIT 36.3 % (36-48); HEMOGLOBIN 12.1 g/dL (12.0-16.0); MEAN CORPUSCULAR HEMOGLOBIN 30 pg (27-31); MEAN CORPUSCULAR HGB CONC 33 g/dL (33-37); MEAN CORPUSCULAR VOLUME 89 fL (80-94); PLATELET COUNT (AUTO) 225 K/uL (140-450); RED BLOOD CELL COUNT(AUTO) 4.08 MIL/uL (4.20-5.40); RED CELL DISTRIBUTION WIDTH 15.4 % (11.6-13.7); WHITE BLOOD COUNT (AUTO) 9.7 K/uL (4.8-10.8)
[2017-03-04 10:08] LABS: BAND % (MANUAL) 5 % (0-8); EOSINOPHILS % (MANUAL) 7 % (0-4); LYMPHOCYTES % (MANUAL) 38 % (20-46); MONOCYTES % (MANUAL) 2 % (5-12); NEUTROPHILS % (MANUAL) 48 (43-65)
[2017-03-04 10:13] LABS: ANION GAP 9.7 (8-16); CALCIUM 8.2 mg/dL (8.5-10.1); CARBON DIOXIDE 27.9 mmol/L (21-32); CREATININE 0.8 mg/dL (0.6-1.3); POTASSIUM 3.6 mmol/L (3.5-5.1)
[2017-03-04 10:17] LABS: MAGNESIUM 2.3 mg/dL (1.8-2.4); PHOSPHORUS 1.9 mg/dL (2.5-4.9)
[2017-03-04] MEDS ORDERED: Z-GUARD PASTE TP PRN (10:25)
[2017-03-04 11:33] LABS: PARTIAL THROMBOPLASTIN TIME 23.8 secs (22-35.6); PROTHROMBIN TIME 9.7 secs (10.8-13.4)
[2017-03-04] MEDS ORDERED: METOCLOPRAMIDE 10 MG/2 ML INJ VIAL IVP PRN (12:15)
[2017-03-04] MEDS: SODIUM PHOS / POTASSIUM PHOS 1 PKT PDR PO SCH ×2 (12:25→17:00)
[2017-03-04] MEDS: Z-GUARD PASTE TP SCH (13:00)
[2017-03-04 13:27] LABS: BLOOD GAS PH 7.512 (7.35-7.45)
[2017-03-04 13:28] LABS: BLOOD GAS BASE EXCESS 0.4 mmol/L (-2.0-2.0); BLOOD GAS HCO3 22.7 mmol/L; BLOOD GAS O2 SAT% 97.8 % (92.0-98.5); BLOOD GAS PO2 91.1 mmHg
[2017-03-04] MEDS ORDERED: FUROSEMIDE 40 MG/4 ML VIAL IVP SCH (14:23)
[2017-03-04] MEDS: LEVOFLOXACIN 750 MG/D5W PREMIX 150 ML IV SCH (14:55)
[2017-03-04] MEDS: MORPHINE SULFATE 2 MG/ML SYR IVP PRN (16:47)
[2017-03-04] MEDS: ATORVASTATIN 20 MG TAB GT SCH (21:05)
[2017-03-04] MEDS ORDERED: MEROPENEM 1,000 MG VIAL IV ONE (21:32)
[2017-03-04] MEDS: MEROPENEM 1,000 MG in NACL 0.9% 100 ML IV SCH (22:23)
[2017-03-05] VITALS (9 sets, daily range): BP systolic 115–153; BP diastolic 58–87
[2017-03-05] MEDS: ALBUTEROL SULFATE/IPRATROPIU 3 ML SOL IH SCH ×4 (00:50→19:03)
[2017-03-05] MEDS: Z-GUARD PASTE TP SCH ×2 (01:38→12:29)
[2017-03-05] MEDS: NACL 0.9% 1,000 ML IV SCH ×2 (02:28→14:25)
[2017-03-05] MEDS: LANSOPRAZOLE 30 MG CAPDR GT SCH (05:37)
[2017-03-05] MEDS ORDERED: MEROPENEM 1,000 MG VIAL IV ONE (05:37)
[2017-03-05] MEDS: MEROPENEM 1,000 MG in NACL 0.9% 100 ML IV SCH ×3 (05:37→21:20)
[2017-03-05] MEDS: BLOOD GLUCOSE MONITORING 1 DEV DEV FS SCH ×4 (06:43→21:07)
[2017-03-05 06:57] LABS: BASOPHILS # (AUTO) 0.2 K/uL (0.00-0.22); BASOPHILS % (AUTO) 3.2 % (0.0-2.0); EOSINOPHILS # (AUTO) 0.2 K/uL (0-0.4); EOSINOPHILS % (AUTO) 3.1 % (0.0-4.0); HEMATOCRIT 31.2 % (36-48); HEMOGLOBIN 10.3 g/dL (12.0-16.0); LYMPHOCYTES # (AUTO) 1.6 K/uL (2.5-16.5); LYMPHOCYTES % (AUTO) 26.5 % (20.5-51.1); MEAN CORPUSCULAR HEMOGLOBIN 29 pg (27-31); MEAN CORPUSCULAR HGB CONC 33 g/dL (33-37); MEAN CORPUSCULAR VOLUME 88 fL (80-94); MONOCYTES # (AUTO) 0.3 K/uL (0.8-1.0); MONOCYTES % (AUTO) 5.7 % (1.7-9.3); NEUTROPHILS # (AUTO) 3.6 K/uL (1.8-7.7); NEUTROPHILS % (AUTO) 61.5 % (42.2-75.2); PLATELET COUNT (AUTO) 236 K/uL (140-450); RED BLOOD CELL COUNT(AUTO) 3.55 MIL/uL (4.20-5.40); RED CELL DISTRIBUTION WIDTH 15.4 % (11.6-13.7); WHITE BLOOD COUNT (AUTO) 5.9 K/uL (4.8-10.8)
[2017-03-05 07:08] LABS: CALCIUM 7.8 mg/dL (8.5-10.1); CREATININE 0.9 mg/dL (0.6-1.3)
[2017-03-05 07:23] LABS: MAGNESIUM 2.3 mg/dL (1.8-2.4); PHOSPHORUS 2.1 mg/dL (2.5-4.9)
[2017-03-05 07:47] LABS: ANION GAP 10.2 (8-16); CARBON DIOXIDE 26.9 mmol/L (21-32); POTASSIUM 3.1 mmol/L (3.5-5.1)
[2017-03-05] MEDS: LINEZOLID 600MG PREMIX 300 ML IV SCH ×2 (08:24→21:20)
[2017-03-05] MEDS: LACTULOSE 20 GM/30 ML UDC GT SCH ×4 (08:39→21:20)
[2017-03-05] MEDS: SODIUM PHOS / POTASSIUM PHOS 1 PKT PDR PO SCH ×2 (08:39→12:29)
[2017-03-05] MEDS: PHENYTOIN 100 MG/4 ML UDC GT SCH ×3 (08:40→17:10)
[2017-03-05] MEDS: DOCUSATE 100 MG/10 ML UDC GT SCH ×2 (08:40→21:20)
[2017-03-05] MEDS: LACTOBACILLUS RHAMNOSUS GG 1 EACH CAP GT SCH (08:40)
[2017-03-05] MEDS: MULTIVITAMIN 5 ML ORASYR GT SCH (08:41)
[2017-03-05] MEDS: METHIMAZOLE 5 MG TAB GT SCH (08:41)
[2017-03-05] MEDS: LISINOPRIL 10 MG TAB GT SCH (08:42)
[2017-03-05] MEDS: THIAMINE 100 MG TAB GT SCH (08:42)
[2017-03-05] MEDS: ASCORBIC ACID 500 MG/5 ML ORASYR GT SCH (08:42)
[2017-03-05] MEDS: ASPIRIN 81 MG TAB.CHEW PO SCH (08:43)
[2017-03-05] MEDS: SENNA 8.6 MG TAB PO SCH ×3 (08:43→17:10)
[2017-03-05] MEDS ORDERED: POTASSIUM CHLORIDE 40 MEQ, LIDOCAINE 1% 25 MG in NACL 0.9% 250 ML IV SCH (09:00)
[2017-03-05] MEDS: CLINICAL MONITORING MC SCH (09:15)
[2017-03-05 15:09] LABS: FOLIC ACID 13.3 ng/mL (>3.0)
[2017-03-05 16:02] LABS: ANION GAP 7.5 (8-16); CALCIUM 7.7 mg/dL (8.5-10.1); CARBON DIOXIDE 27.4 mmol/L (21-32); CREATININE 0.9 mg/dL (0.6-1.3); POTASSIUM 3.9 mmol/L (3.5-5.1)
[2017-03-05] MEDS: ATORVASTATIN 20 MG TAB GT SCH (21:20)
[2017-03-05] MEDS: MORPHINE SULFATE 2 MG/ML SYR IVP PRN (21:20)
[2017-03-06] MEDS: ALBUTEROL SULFATE/IPRATROPIU 3 ML SOL IH SCH ×3 (01:20→12:23)
[2017-03-06] MEDS: NACL 0.9% 1,000 ML IV SCH ×2 (03:28→04:58)
[2017-03-06 04:00] VITALS: BP 115/67
[2017-03-06] MEDS: Z-GUARD PASTE TP SCH (04:17)
[2017-03-06] MEDS: MEROPENEM 1,000 MG in NACL 0.9% 100 ML IV SCH (04:58)
[2017-03-06] MEDS: LANSOPRAZOLE 30 MG CAPDR GT SCH (06:22)
[2017-03-06 06:44] LABS: BASOPHILS # (AUTO) 0.2 K/uL (0.00-0.22); EOSINOPHILS # (AUTO) 0.2 K/uL (0-0.4); HEMATOCRIT 30.1 % (36-48); HEMOGLOBIN 10.1 g/dL (12.0-16.0); LYMPHOCYTES # (AUTO) 1.7 K/uL (2.5-16.5); LYMPHOCYTES % (AUTO) 32.7 % (20.5-51.1); MEAN CORPUSCULAR HEMOGLOBIN 29 pg (27-31); MEAN CORPUSCULAR HGB CONC 33 g/dL (33-37); MEAN CORPUSCULAR VOLUME 88 fL (80-94); MONOCYTES # (AUTO) 0.3 K/uL (0.8-1.0); MONOCYTES % (AUTO) 5.6 % (1.7-9.3); NEUTROPHILS # (AUTO) 2.7 K/uL (1.8-7.7); NEUTROPHILS % (AUTO) 53.7 % (42.2-75.2); PLATELET COUNT (AUTO) 224 K/uL (140-450); RED BLOOD CELL COUNT(AUTO) 3.44 MIL/uL (4.20-5.40); RED CELL DISTRIBUTION WIDTH 15.6 % (11.6-13.7); WHITE BLOOD COUNT (AUTO) 5.1 K/uL (4.8-10.8)
[2017-03-06 06:53] LABS: ANION GAP 8.7 (8-16); CALCIUM 7.7 mg/dL (8.5-10.1); CARBON DIOXIDE 26.9 mmol/L (21-32); CREATININE 0.8 mg/dL (0.6-1.3); POTASSIUM 3.6 mmol/L (3.5-5.1)
[2017-03-06] MEDS: BLOOD GLUCOSE MONITORING 1 DEV DEV FS SCH ×2 (07:26→11:56)
[2017-03-06 08:00] VITALS: BP 137/67
[2017-03-06] MEDS ORDERED: FERROUS SULFATE 300 MG/5 ML UDC GT SCH (08:00)
[2017-03-06] MEDS ORDERED: ASCORBIC ACID 500 MG/5 ML ORASYR GT SCH (09:00)
[2017-03-06] MEDS: ASCORBIC ACID 500 MG/5 ML ORASYR GT SCH (09:43)
[2017-03-06] MEDS: MULTIVITAMIN 5 ML ORASYR GT SCH (09:43)
[2017-03-06] MEDS: METHIMAZOLE 5 MG TAB GT SCH (09:44)
[2017-03-06] MEDS: PHENYTOIN 100 MG/4 ML UDC GT SCH (09:44)
[2017-03-06] MEDS: LACTULOSE 20 GM/30 ML UDC GT SCH (09:44)
[2017-03-06] MEDS: DOCUSATE 100 MG/10 ML UDC GT SCH (09:44)
[2017-03-06] MEDS: LACTOBACILLUS RHAMNOSUS GG 1 EACH CAP GT SCH (09:45)
[2017-03-06] MEDS: SENNA 8.6 MG TAB PO SCH (09:45)
[2017-03-06] MEDS: THIAMINE 100 MG TAB GT SCH (09:45)
[2017-03-06] MEDS: ASPIRIN 81 MG TAB.CHEW PO SCH (09:46)
[2017-03-06] MEDS: LINEZOLID 600MG PREMIX 300 ML IV SCH (09:47)
[2017-03-06] MEDS: LISINOPRIL 10 MG TAB GT SCH (09:47)
[2017-03-06] MEDS ORDERED: MER1I IV (11:10)
[2017-03-06] MEDS ORDERED: ZYV600I IV ×2 (11:11→11:14)
[2017-03-06] MEDS ORDERED: [UNRECOGNIZED DRUG - CODE] GT (11:22)
[2017-03-06] MEDS ORDERED: ACET-9529 PO (11:22)
[2017-03-06] MEDS ORDERED: HEPA500055 SUBQ (11:22)
[2017-03-06] MEDS ORDERED: SENN8.6T99 PO (11:22)
[2017-03-06] MEDS ORDERED: HUMSLIDE SUBQ (11:22)
[2017-03-06] MEDS ORDERED: ATOR40TA GT (11:22)
[2017-03-06] MEDS ORDERED: ATOR40TA PO (11:26)
== END 2017-03-06 14:30 | DRG 710 ==
LOC: MED 23:39 → MIC 03-02 02:14 → MTU 03-05 23:07
PROVIDERS: ADMIT Student in an Organized Health Care Education/Training Program; ATTEND Student in an Organized Health Care Education/Training Program
PROC: 02HV33Z Insertion of Infusion Device into Superior Vena Cava, Percutaneous Approach (ICD-10-PCS; principal; 2017-03-03)
PROC: B548ZZA Ultrasonography of Superior Vena Cava, Guidance (ICD-10-PCS; 2017-03-03)
PROC: 0BW18FZ Revision of Tracheostomy Device in Trachea, Via Natural or Artificial Opening Endoscopic (ICD-10-PCS; 2017-03-05)
DX: A41.9 Sepsis, unspecified organism (principal); N17.0 Acute kidney failure with tubular necrosis; J96.00 Acute respiratory failure, unspecified whether with hypoxia or hypercapnia; R65.21 Severe sepsis with septic shock; J69.0 Pneumonitis due to inhalation of food and vomit; G93.1 Anoxic brain damage, not elsewhere classified; Z93.0 Tracheostomy status; E43 Unspecified severe protein-calorie malnutrition; F01.50 Vascular dementia, unspecified severity, without behavioral disturbance, psychotic disturbance, mood disturbance, and anxiety; E87.6 Hypokalemia; B95.2 Enterococcus as the cause of diseases classified elsewhere; E05.90 Thyrotoxicosis, unspecified without thyrotoxic crisis or storm; E78.5 Hyperlipidemia, unspecified; G40.909 Epilepsy, unspecified, not intractable, without status epilepticus; J40 Bronchitis, not specified as acute or chronic; N39.0 Urinary tract infection, site not specified; N20.0 Calculus of kidney; Z16.21 Resistance to vancomycin; E11.65 Type 2 diabetes mellitus with hyperglycemia; D64.9 Anemia, unspecified; K46.9 Unspecified abdominal hernia without obstruction or gangrene; E11.22 Type 2 diabetes mellitus with diabetic chronic kidney disease; K43.9 Ventral hernia without obstruction or gangrene; N18.9 Chronic kidney disease, unspecified; I35.0 Nonrheumatic aortic (valve) stenosis; Z93.1 Gastrostomy status; Z86.73 Personal history of transient ischemic attack (TIA), and cerebral infarction without residual deficits; Z88.0 Allergy status to penicillin; Z88.8 Allergy status to other drugs, medicaments and biological substances; Z79.01 Long term (current) use of anticoagulants; Z79.2 Long term (current) use of antibiotics; Z79.899 Other long term (current) drug therapy; Z68.27 Body mass index [BMI] 27.0-27.9, adult; Z82.3 Family history of stroke; Z82.49 Family history of ischemic heart disease and other diseases of the circulatory system; Z86.718 Personal history of other venous thrombosis and embolism
CPT/HCPCS: 36415; 36600; 51702; 71010; 80048; 80053; 80185; 80305; 81001; 82271; 82607; 82728; 82746; 82803; 82948; 83036; 83540; 83605; 83735; 83880; 84100; 84436; 84443; 84479; 84484; 85025; 85045; 85610; 85730; 87040; 87070; 87081; 87086; 87186; 87205; 89220; 93005; 93925; 93970; 94640; 96361; 96365; 96367; 96375; 99291; C9113; J1642; J1644; J1815; J1940; J1956; J2001; J2020; J2060; J2185; J2270; J3480; J3490; J7030; J7060; J7620; Q0092

== ENCOUNTER 2017-05-13 03:10 | Inpatient (IN) | payer MEDICAID ==
[2017-05-13] VITALS (58 sets, daily range): BP systolic 71–114; BP diastolic 45–64
[~2017-05-13] VITALS: Ht 160 cm; Wt 69.0 kg
[~2017-05-13 03:10] MED LIST changes: -ACET-1182 GT; +ACET-9529 PO; -ATOR10TA GT; +ATOR40TA PO; -CLON0.2T15 GT; -DOCU100C14 GT; +HEPA500055 SUBQ; +HUMSLIDE SUBQ; -LACT10SO11 GT; -LEVO500T98 GT; +MER1I IV; +NA P133E RC; -NA P135N19 RC; -NITR100C7 GT; -RIVA20TA GT; +SENN-89 PO; +ZYV600I IV; +[UNRECOGNIZED DRUG - CODE] GT; +[UNRECOGNIZED DRUG - CODE] GT
--- NOTE | 2017-05-13 03:10 | NUR ---
BIBA TO ER BED 11
--- NOTE | 2017-05-13 03:17 | NUR ---
Patient being evaluated by physician at bedside.
[2017-05-13] MEDS ORDERED: VANCOMYCIN 1,000 MG in DEXTROSE 5% 250 ML IV ONE (03:20)
[2017-05-13] MEDS ORDERED: LEVOFLOXACIN 500 MG/D5W PREMIX 100 ML IV ONE (03:20)
--- NOTE | 2017-05-13 03:20 | NUR ---
PATIENT IS A 61 Y/O FEMALE WHO PRESENTS TO THE ED C/O SOB. PER [facility] PT CAME FROM [facility] LOW O2 SATURATIONS 83% X1 HOUR. PER [facility] BLOOD SUGAR OF 138. NOTED BILATERAL RHONCHI IN BILATERAL BASES. NOTED TRACH AND G-TUBE. NOTED WOUND TO THE SACRAL AREA, REDNESS, PICTURES HAVE BEEN TAKEN AND CHARTED. PER [facility] REPORTS H/O CVA, DM, RESP FAILURE, HYPOTHYROIDISM, HTN. PT IS NONVERBAL, MENTAL STATUS UNOBTAINABLE. PT REPOSITIONED FOR COMFORT, BED IN LOWEST POSITION. ER MD DR. NAIDU NOTIFIED. WILL CONTINUE TO MONITOR.
--- NOTE | 2017-05-13 04:01 | NUR ---
CALLED CHRISTIANO DUGAN ETA.
--- NOTE | 2017-05-13 04:09 | NUR ---
STILL AWAITING XRAY
--- NOTE | 2017-05-13 04:12 | NUR ---
XRAY AT BEDSIDE
--- NOTE | 2017-05-13 04:15 | NUR ---
PATIENT ARRIVED FROM [facility] W/ PORTEX 6 CUFFLESS TRACH. NO INNER CANNULA WAS FOUND IN TRACH, PLACED A 6 PORTEX INNER CANNULA, SPUTUM WAS OBTAINED, PLACED ON 40% TRACH COLLAR
[2017-05-13] MEDS ORDERED: VANCOMYCIN 1,000 MG VIAL ONE (04:53)
[2017-05-13 04:55] LABS: HEMATOCRIT 41.9 % (36-48); HEMOGLOBIN 14.1 g/dL (12.0-16.0); MEAN CORPUSCULAR HEMOGLOBIN 30 pg (27-31); MEAN CORPUSCULAR HGB CONC 34 g/dL (33-37); MEAN CORPUSCULAR VOLUME 90 fL (80-94); PLATELET COUNT (AUTO) 386 K/uL (140-450); RED BLOOD CELL COUNT(AUTO) 4.64 MIL/uL (4.20-5.40); RED CELL DISTRIBUTION WIDTH 15.5 % (11.6-13.7); WHITE BLOOD COUNT (AUTO) 16.6 K/uL (4.8-10.8)
--- NOTE | 2017-05-13 05:01 | NUR ---
IV removed, catheter intact and site benign. Applied folded 4x4 gauze and tape to stop bleeding.
[2017-05-13 05:10] LABS: LYMPHOCYTES % (MANUAL) 8 % (20-46); MONOCYTES % (MANUAL) 8 % (5-12)
[2017-05-13 05:12] LABS: ALBUMIN 2.8 g/dL (3.4-5.0); ANION GAP 9.1 (8-16); CARBON DIOXIDE 32.2 mmol/L (21-32); CREATININE 1.1 mg/dL (0.6-1.3); TOTAL BILIRUBIN 0.3 mg/dL (0.0-1.0)
[2017-05-13 05:14] LABS: POTASSIUM 5.3 mmol/L (3.5-5.1)
--- NOTE | 2017-05-13 05:28 | NUR ---
Pt report given to JERMAN GAXIOLA. Transfer of care at this time.
[2017-05-13] MEDS ORDERED: MORPHINE SULFATE 2 MG/ML SYR IVP PRN (06:20)
[2017-05-13] MEDS ORDERED: ONDANSETRON 4 MG/2 ML VIAL IM/IVP PRN (06:20)
[2017-05-13] MEDS ORDERED: HYDROcodone/APAP 7.5/325 MG 1 TAB PO PRN (06:20)
[2017-05-13] MEDS ORDERED: ZOLPIDEM 5 MG TAB PO PRN (06:20)
[2017-05-13] MEDS ORDERED: ACETAMINOPHEN 325 MG TAB PO PRN (06:20)
[2017-05-13] MEDS ORDERED: FAMOTIDINE 20 MG/2 ML VIAL IVP ONE (06:20)
[2017-05-13] MEDS ORDERED: LORazepam 0.5 MG TAB PO PRN (06:20)
[2017-05-13] MEDS ORDERED: FUROSEMIDE 40 MG/4 ML VIAL IVP ONE (06:20)
[2017-05-13] MEDS ORDERED: DOCUSATE SODIUM 100 MG GELCAP PO PRN (06:20)
--- NOTE | 2017-05-13 06:25 | NUR ---
pt sz with tonic/clonic , er md dr epps called, ivp meds given-nadr at this time.
[2017-05-13] MEDS ORDERED: DIAZEPAM PFS 10 MG/2 ML SYR IVP ONE (06:30)
[2017-05-13] MEDS ORDERED: ALBUTEROL SULFATE/IPRATROPIU 3 ML SOL IH PRN (06:30)
[2017-05-13] MEDS ORDERED: LORazepam 2 MG/ML VIAL ONE (06:34)
[2017-05-13] MEDS ORDERED: PHENYTOIN 1,000 MG in NACL 0.9% 100 ML IV ONE (06:35)
--- NOTE | 2017-05-13 06:38 | NUR ---
PT TRANSFERRED TO C-SCAN PLACED ON 60 % TRACH OXYGENATOR 12L SX SET UP SPO2 97
--- NOTE | 2017-05-13 06:40 | NUR ---
pt having focal seizure to lt side, er md at bedside, ivp meds given-nadr. pt stopped sz. pt taken to ct with emt, rt, rn, change management director.
[2017-05-13 06:51] LABS: PROTHROMBIN TIME 9.8 secs (10.8-13.4)
[2017-05-13 07:01] LABS: CHOL/HDL RATIO 2.2 (1-4.5); FREE T4 (FREE THYROXINE) 0.45 ng/dL (0.76-1.46); MAGNESIUM 2.7 mg/dL (1.8-2.4); PHOSPHORUS 4.5 mg/dL (2.5-4.9); THYROID STIMULATING HORMONE 2.67 uIU/mL (0.34-3.74)
--- NOTE | 2017-05-13 07:03 | NUR ---
PT RETURNED TO ER 11 PLACED ON 60 % T-PIECE SPO2 93 SX LG BROWN
[2017-05-13] MEDS ORDERED: LORazepam 2 MG/ML VIAL IVP ONE (07:10)
--- NOTE | 2017-05-13 07:13 | NUR ---
Pt report given to SIGIFREDO. Transfer of care at this time.
--- NOTE | 2017-05-13 07:35 | NUR ---
Patient will be admitted to care of DR. HOLLAND. Admited to ICU. Will go to room 7. Belongings list completed. Report to MINOR CISNEROS.
--- NOTE | 2017-05-13 07:40 | NUR ---
RECEIVED A REPORT FROM ELENITA SANTIAGO RN FOR PT IS GOING TO BE ADMITTED FROM ER.
--- NOTE | 2017-05-13 08:05 | NUR ---
PT TRANSFERRED TO ICU 7 PLACED ON 60% COOL AEROSOL PT IS RESTING WITH NO SIGNS OF DISTRESS NOTED AT THIS TIME MINOR Lobato AT BEDSIDE
--- NOTE | 2017-05-13 08:05 | NUR ---
PT ARRIVED VIA GURNEY FROM ER. CLOSED EYES AND UNRESPONSIVE TO STIMULI. TRACH AND ON 60% COOL AEROSOL. NO S/SX OF RESPIRATORY DISTRESS AND FLACC 0 AT THIS TIME. SKIN WARM TO TOUCH. G-TUBE IN PLACE AND REDNESS AT STOMA AREA NOTED. WEST CATHETER DRAINING CLEAR YELLOW URINE. 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 SR ON THE MONITOR. PERIPHERAL IV LINE ON LT HAND 22G. SAFETY PRECAUTION, BED IN LOW POSITION. WILL CONTINUE TO MONITOR.
[2017-05-13] MEDS ORDERED: BISACODYL 10 MG SUPP RC SCH (08:10)
[2017-05-13] MEDS ORDERED: SODIUM PHOSPHATE 118 ML ENEM RC SCH (08:10)
[2017-05-13] MEDS: NACL 0.9% 1,000 ML IV SCH ×3 (08:20→21:17)
--- NOTE | 2017-05-13 09:13 | NUR ---
CHECKED BP: 78/53. PAGED DR. SMITH, WILL FOLLOW UP ON ORDERS.
[2017-05-13] MEDS ORDERED: NACL 0.9% 1,000 ML IV ONE ×2 (09:20→09:50)
--- NOTE | 2017-05-13 09:31 | NUR ---
CALLED TO BEDSIDE FOR PT DESAT TO 87% DID TRACH CARE: CHANGED TRACH TIE AND GAUZE AND SXN PT MODERATE AMT OF BROWN SECRETIONS, CHANGED FINGER PROBE AND AT 60% COOL AEROSOL O2 SAT IS 88% RN SAMIRA Bansal NOTIFIED
--- NOTE | 2017-05-13 09:33 | NUR ---
DR. SMITH IN TO SEE PT AND RECEIVED NS BOLUS ORDER FOR LOW BP 73/54. WILL FOLLOW UP ON ORDERS
--- NOTE | 2017-05-13 09:35 | NUR ---
REPORTED DR. SMITH FOR DILANTIN LEVEL 39.9. WILL FOLLOW UP ON ORDERS
--- NOTE | 2017-05-13 09:42 | NUR ---
CALLED IN PLACE AND SPOKE TO DAJA NICKI(DAUGHTER OF THE PT) REGARDING OF PLAN OF CENTRAL LINE INSERTION AND OBTAINED THE TELEPHONE CONSENT BY TWO LICENSE NURSES. INFORMED DR. SMITH AND HE STATED HE WILL CALL THE DAUGHTER TO UPDATE PT'S CONDITION WITH CENTRAL LINE INSERTION. WILL FOLLOW UP ON ORDERS
[2017-05-13] MEDS ORDERED: NACL 0.9% 500 ML IV ONE (09:50)
[2017-05-13] MEDS: PANTOPRAZOLE 40 MG INJ VIAL IVP SCH ×2 (09:57→21:19)
--- NOTE | 2017-05-13 10:04 | NUR ---
DR. ENRIQUE IN TO SEE PT. WILL FOLLOW UP ON ORDERS.
[2017-05-13] MEDS ORDERED: NOREPINEPHRINE 4 MG in DEXTROSE 5% 250 ML IV PRN ×2 (10:05→12:00)
--- NOTE | 2017-05-13 10:43 | NUR ---
DR. SMITH IN TO INSERT CENTRAL LINE AT BEDSIDE.
--- NOTE | 2017-05-13 11:20 | NUR ---
DR. MERINO IN TO SEE PT. WILL FOLLOW UP ON ORDERS.
[2017-05-13] MEDS ORDERED: VANCOMYCIN PER PHARMACY MC PRN (11:25)
--- NOTE | 2017-05-13 11:40 | NUR ---
DR. MERINO AT BEDSIDE TO CHANGE TRACH FROM PORTEX 6 TO PORTEX 7 WITHOUT INCIDENT AND PT WAS PLACED ON CARTESCAPE VENT AT 1147 WITH SETTINGS AC16 VT 500 PEEP 5 FIO2 50% ALARMS ON AND FUNCTIONING PROPERLY, AMBU BAG AT SIDE OF VENT AND VENT IS PLUGGED INTO RED OUTLET, SXN PT BLOODY SECRETIONS, AND TRACH CARE WAS DONE AGAIN WITH CHANGING TRACH TIE AND GAUZE B\S ARE RHONCHI BILATERALLY, PT IS RESTING NOW WITH NO SIGNS OF DISTRESS NOTED AT THIS TIME
--- NOTE | 2017-05-13 11:40 | NUR ---
CHANGED TRACH TO VENT AT BEDSIDE BY DR. MERINO. AND SETTING AT AC 60, FiO2 50, TV 100, PEEP 5, O2 94%. PT STABLE. CONTINUE ON LEVOPHED DRIP ORDERED PER PROTOCOL. Addendum: 05/13/17 at 1157 by Emmett Kaminski RN CORRECTION OF DOCUMENTATION; AC 16, NOT 60
[2017-05-13] MEDS ORDERED: METH-426 GT (11:47)
[2017-05-13] MEDS ORDERED: ASPI81CT89 PO (11:49)
[2017-05-13] MEDS ORDERED: [UNRECOGNIZED DRUG - CODE] GT (11:53)
[2017-05-13] MEDS ORDERED: CLINDAMYCIN 900 MG in DEXTROSE 5% 100 ML IV SCH (12:00)
[2017-05-13 12:29] LABS: HEMATOCRIT 35.9 % (36-48); MEAN CORPUSCULAR HEMOGLOBIN 31 pg (27-31); MEAN CORPUSCULAR HGB CONC 33 g/dL (33-37); MEAN CORPUSCULAR VOLUME 92 fL (80-94); PLATELET COUNT (AUTO) 291 K/uL (140-450); RED BLOOD CELL COUNT(AUTO) 3.92 MIL/uL (4.20-5.40); RED CELL DISTRIBUTION WIDTH 15.7 % (11.6-13.7); WHITE BLOOD COUNT (AUTO) 27.6 K/uL (4.8-10.8)
[2017-05-13 12:30] LABS: ANION GAP 10.1 (8-16); CARBON DIOXIDE 27.4 mmol/L (21-32); CREATININE 1.3 mg/dL (0.6-1.3); POTASSIUM 4.5 mmol/L (3.5-5.1)
--- NOTE | 2017-05-13 12:30 | NUR ---
PT'S SON IN LAW IS AT BEDSIDE.
--- NOTE | 2017-05-13 12:40 | NUR ---
ABG DRAWN ON RR WITHOUT INCIDENT AND DR. MERINO CALLED AT [address]3 DR. MERINO CALLED BACK AND WAS READ THE RESULTS OF ABG ONLY CHANGE MADE TO VENT WAS INCREASE FIO2 TO 60% AND ABG IN AM ON 05/14/2017 MINOR Lobato NOTIFIED OF CHANGES MADE
[2017-05-13] MEDS: ALBUTEROL SULFATE/IPRATROPIU 3 ML SOL IH SCH ×2 (12:52→18:52)
[2017-05-13] MEDS ORDERED: ROB1 GT (12:54)
[2017-05-13] MEDS ORDERED: CEFEPIME 2,000 MG in DEXTROSE 5% 100 ML IV SCH (13:00)
[2017-05-13] MEDS ORDERED: DOCUSATE 100 MG/10 ML UDC PO PRN (13:00)
[2017-05-13 13:38] LABS: LYMPHOCYTES % (MANUAL) 11 % (20-46); MONOCYTES % (MANUAL) 6 % (5-12)
[2017-05-13 13:46] LABS: APPEARANCE,URINE HAZY (CLEAR); BILIRUBIN,URINE NEGATIVE (NEGATIVE); BLOOD, URINE 2+ (NEGATIVE); COLOR,URINE YELLOW (YELLOW); LEUKOCYTE ESTERASE ,URINE 1+ (NEGATIVE); NITRITE, URINE NEGATIVE (NEGATIVE); PH,URINE 5.5 (5.0-9.0); UGLUCOSE NEGATIVE (NEGATIVE)
[2017-05-13] MEDS: MEROPENEM 1,000 MG in NACL 0.9% 100 ML IV SCH ×2 (13:46→21:19)
[2017-05-13 13:52] LABS: RBC,URINE 3-10 (FEW) /HPF (0-5); WBC,URINE 6-15 (FEW) /HPF (0-5)
--- NOTE | 2017-05-13 14:30 | NUR ---
DR. SMITH DID RECTAL EXAM AT BEDSIDE.
--- NOTE | 2017-05-13 14:51 | NUR ---
DR. RODRÍGUEZ IN TO SEE PT. WILL FOLLOW UP ON ORDERS
--- NOTE | 2017-05-13 15:13 | NUR ---
VENT CHECK, SXN PT SMALL AMT OF BROWN SECRETIONS, B\S ARE RHONCHI AND AIRWAY IS PATENT CHANGED TRACH GAUZE PT IS RESTING WITH NO SIGNS OF DISTRESS NOTED AT THIS TIME, DECREASED FIO2 TO 50% AND RN SAMIRA Bansal NOTIFIED
[2017-05-13] MEDS ORDERED: DEXTROSE 50% 50 ML SYR IVP PRN (15:25)
[2017-05-13] MEDS ORDERED: INSULIN LISPRO SLIDING SCALE 100 UNITS/ML VIAL SUBQ PRN (15:25)
--- NOTE | 2017-05-13 15:43 | NUR ---
PT STABLE. NO S/SX OF RESPIRATORY DISTRESS NOTED. WILL CONTINUE TO MONITOR
[2017-05-13 15:49] LABS: HEMATOCRIT 31.7 % (36-48); HEMOGLOBIN 10.6 g/dL (12.0-16.0)
[2017-05-13] MEDS: BLOOD GLUCOSE MONITORING 1 DEV DEV FS SCH ×2 (16:59→21:20)
[2017-05-13] MEDS ORDERED: LACTULOSE 20 GM/30 ML UDC PO SCH (17:00)
[2017-05-13] MEDS ORDERED: SENNA 8.6 MG TAB PO SCH (17:00)
--- NOTE | 2017-05-13 17:06 | NUR ---
vent check, no sxn required at this time, airway is patent and pt is resting student nurses at bedside with instructor decreased fio2 to 40% and rn uziel han notified
--- NOTE | 2017-05-13 17:30 | NUR ---
PT TOLERATED MEDICATIONS WELL. FLACC 0. NO S/SX OF RESPIRATORY DISTRESS NOTED. WILL CONTINUE TO MONITOR
[2017-05-13] MEDS ORDERED: PHENYTOIN 100 MG/4 ML UDC GT SCH (18:00)
--- NOTE | 2017-05-13 18:30 | NUR ---
OBTAINED TELEPHONE CONSENT FROM DAJA CACERES(PT'S DAUGHTER) FOR EGD PROCEDURE AND WITNESSED BY SECOND LICENSE NURSE, SIGNED AND PLACED IN THE CHART.
[2017-05-13 18:50] LABS: HEMATOCRIT 30.4 % (36-48); HEMOGLOBIN 10.4 g/dL (12.0-16.0); MEAN CORPUSCULAR HEMOGLOBIN 31 pg (27-31); MEAN CORPUSCULAR HGB CONC 34 g/dL (33-37); MEAN CORPUSCULAR VOLUME 91 fL (80-94); PLATELET COUNT (AUTO) 320 K/uL (140-450); RED BLOOD CELL COUNT(AUTO) 3.36 MIL/uL (4.20-5.40); RED CELL DISTRIBUTION WIDTH 15.3 % (11.6-13.7); WHITE BLOOD COUNT (AUTO) 21.4 K/uL (4.8-10.8)
[2017-05-13 19:07] LABS: ANION GAP 7.2 (8-16); CARBON DIOXIDE 28.8 mmol/L (21-32); EOSINOPHILS % (MANUAL) 1 % (0-4); LYMPHOCYTES % (MANUAL) 12 % (20-46); MONOCYTES % (MANUAL) 1 % (5-12)
--- NOTE | 2017-05-13 19:26 | NUR ---
REPORT GIVEN AND ENDORSED CARE TO CARTER MATTHEW RN. PT STABLE.
--- NOTE | 2017-05-13 19:30 | NUR ---
RECEIVED REPORT FROM BLAYNE, RN AT BEDSIDE, PT IS CLOSED EYES, NON VERBAL, UNABLE TO FOLLOW COMMANDS, ONLY RESPOND TO PAINFUL STIMULI, RIGHT SIDE OF HEAD WITH DEFORMITY NOTED. CENTRAL LING TO LEFT IJ WITH TLC, PATENT TO EACH LUMEN, RUNNING WITH NS AT 150ML/HR AND LEVOPHED AT 9MCG/MIN. TRACH TO VENT WITH SETTING FIO2 40, RR 16, TV 500, PEEP 5, NO S/SX OF RESPIRATORY DISTRESS, CLEAR LUNG SOUNDS. SR ON DIRECTOR OF STRATEGIC SALES. SOFT ABDOMEN WITH ACTIVE BOWEL SOUNDS, GT PRESENT WITH 0ML RESIDUE, NPO EXCEPT MEDS AT THIS TIME, WEST CATHETER IN PLACE WITH CLEAR YELLOW URINE IN BAG, UNABLE TO MOVE ALL EXTREMITIES, SCD'S ON BLE FOR PREVENTION, SKIN WARM AND DRY TO TOUCH, OPEN WOUND PRESENT (SEE WOUND ASSESSMENT), PERIPHERAL IV LINE TO LEFT HAND, 22GA, PATENT AND SL. 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 SAFETY PRECAUTION AND SEIZURE PRECAUTION MAINTAINED, VSS, FLACC 0, WILL CONTINUE TO MONITOR.
[2017-05-13] MEDS: NOREPINEPHRINE 4 MG in DEXTROSE 5% 250 ML IV PRN (20:00)
--- NOTE | 2017-05-13 20:15 | NUR ---
NO S/S OF DISTRESS, VSS, ORAL CARE PROVIDED, POSITION CHANGED FOR OFF LOAD PRESSURE, PT HAD A SMALL BM AT THIS TIME, MELY CARE PROVIDED.
[2017-05-13] MEDS ORDERED: METOCLOPRAMIDE 10 MG/2 ML INJ VIAL IVP SCH (21:00)
--- NOTE | 2017-05-13 21:12 | NUR ---
LOWERED FIO2 TO 30%. SATS 99%
[2017-05-13] MEDS: ATORVASTATIN 20 MG TAB GT SCH (21:18)
[2017-05-13] MEDS: METHIMAZOLE 5 MG TAB GT SCH (21:18)
[2017-05-13] MEDS: DOCUSATE 100 MG/10 ML UDC GT SCH (21:18)
[2017-05-13] MEDS: GLYCOPYRROLATE 1 MG TAB GT SCH (21:19)
[2017-05-13] MEDS: METOCLOPRAMIDE 10 MG/2 ML INJ VIAL IVP SCH (21:19)
[2017-05-13] MEDS: LINEZOLID 600MG PREMIX 300 ML IV SCH (21:20)
--- NOTE | 2017-05-13 22:00 | NUR ---
NO CHANGE OF CONDITION AT THIS TIME, VSS, POSITION CHANGED FOR OFF LOAD PRESSURE.
[2017-05-13] MEDS ORDERED: MAGNESIUM CITRATE 300 ML BTL PO SCH (23:00)
--- NOTE | 2017-05-13 23:00 | NUR ---
NOTED WITH SMALL PASTY STOOL. ASSISTED PT WITH INCONTINENCE CARE. PT TOLERATED WELL. VSS AND NO ACUTE DISTRESS NOTED. ALL SAFETY PRECAUTIONS ARE IN PLACE. WILL CONTINUE TO MONITOR.
[2017-05-14] VITALS (107 sets, daily range): BP systolic 81–129; BP diastolic 34–78
--- NOTE | 2017-05-14 | NUR ---
NO S/S OF DISTRESS, VSS, ORAL CARE PROVIDED, POSITION CHANGED FOR OFF LOAD PRESSURE.
--- NOTE | 2017-05-14 01:00 | NUR ---
PT EYES CLOSED. NON VERBAL. CONTINUING WITH LEVOPHED DRIP ORDERED AND ON CARDIAC MONITORING. TRACH TO VENT. CONTINUING WITH VAP KIT. WEST DRAINING VIA GRAVITY WITH CLEAR YELLOW URINE. LEFT IJ CENTRAL LINE DRESSING INTACT AND CLEAN. NO ACUTE DISTRESS NOTED. KEPT CLEAN AND DRY. CALL LIGHT IN REACH AND BED ELEVATED 30 DEGREES. BILATERAL S/R UP WITH PADS FOR SEIZURE PRECAUTION. BED KEPT TO THE LOWEST LEVEL. WILL CONTINUE TO MONITOR.
[2017-05-14] MEDS ORDERED: NOREPINEPHRINE 4 MG/4 ML VIAL IV ONE (02:12)
[2017-05-14] MEDS: NOREPINEPHRINE 4 MG in DEXTROSE 5% 250 ML IV PRN ×2 (02:54→12:27)
[2017-05-14] MEDS: NACL 0.9% 1,000 ML IV SCH ×3 (02:59→20:58)
[2017-05-14] MEDS ORDERED: LEVOFLOXACIN 750 MG/D5W PREMIX 150 ML IV SCH (04:00)
--- NOTE | 2017-05-14 04:30 | NUR ---
PT NOTED WITH LARGE WATERY PASTY STOOL. ASSISTED WITH INCONTINENCE CARE. PT TOLERATED WELL. NO ACUTE DISTRESS NOTED AT THIS TIME. ALL SAFETY PRECAUTIONS ARE IN PLACE. WILL CONTINUE TO MONITOR.
[2017-05-14 05:05] LABS: HEMATOCRIT 30.1 % (36-48); HEMOGLOBIN 10.2 g/dL (12.0-16.0); MEAN CORPUSCULAR HEMOGLOBIN 31 pg (27-31); MEAN CORPUSCULAR HGB CONC 34 g/dL (33-37); MEAN CORPUSCULAR VOLUME 91 fL (80-94); PLATELET COUNT (AUTO) 338 K/uL (140-450); RED BLOOD CELL COUNT(AUTO) 3.31 MIL/uL (4.20-5.40); RED CELL DISTRIBUTION WIDTH 15.5 % (11.6-13.7); WHITE BLOOD COUNT (AUTO) 18.9 K/uL (4.8-10.8)
[2017-05-14 05:15] LABS: ANION GAP 7.6 (8-16); CARBON DIOXIDE 28.1 mmol/L (21-32); CREATININE 0.8 mg/dL (0.6-1.3); POTASSIUM 3.7 mmol/L (3.5-5.1)
[2017-05-14] MEDS: METOCLOPRAMIDE 10 MG/2 ML INJ VIAL IVP SCH ×3 (05:28→20:56)
[2017-05-14] MEDS: MEROPENEM 1,000 MG in NACL 0.9% 100 ML IV SCH ×3 (05:28→20:56)
--- NOTE | 2017-05-14 05:50 | NUR ---
DR. SMITH AT BED SIDE EVALUATING PT. UPDATED DR. SMITH OF PT'S CONDITION. WILL FOLLOW UP WITH ANY ORDERS.
[2017-05-14 06:21] LABS: LYMPHOCYTES % (MANUAL) 11 % (20-46); MONOCYTES % (MANUAL) 5 % (5-12)
--- NOTE | 2017-05-14 06:38 | NUR ---
RECEIVED PT ON CARESCAPE ON A/C 16 VT 500 PEEP5 FIO2 30 ALARMS ARE 0N AND FUNCTIONAL BMV HOB PTS TRACH PORTEX 7 IS SECURE BS CLEAR I\L SX SCANT YELLOW PT IN HF QUIET VENT PLUGGED INTO RED OUTLET NO APPARENT DISTRESS
[2017-05-14] MEDS: ALBUTEROL SULFATE/IPRATROPIU 3 ML SOL IH SCH ×3 (06:44→19:22)
--- NOTE | 2017-05-14 07:10 | NUR ---
INCREASED FIO2 TO 40 POST ABG RESULTS
--- NOTE | 2017-05-14 07:20 | NUR ---
GAVE REPORT TO MORNING SHIFT RN FOR CONTINUITY OF CARE. VS IS STABLE. NO ACUTE DISTRESS NOTED. ALL SAFETY PRECAUTIONS IN PLACE.
--- NOTE | 2017-05-14 07:25 | NUR ---
RECEIVED REPORT FROM NIGHT RN FOR CONTINUITY OF CARE. PT IS NONRESPONSIVE, NONVERBAL, UNABLE TO FOLLOW COMMANDS. SR ON MONITOR. PT IS TRACH TO VENT: ON AC MODE, TV 500, FIO2 40%, PEEP 5, RR 16. BILATERAL RHONCHI AUSCULTATED. MEDIUM AMOUNT OF NASAL AND ORAL SECRETIONS NOTED. CENTRAL LINE TRIPLE LUMEN TO LEFT INTRAJUGULAR INTACT, PATENT AND FLOWING ORDERED IV FLUID AND LEVOPHED. PERIPHERAL IV TO RIGHT WRIST INTACT, PATENT, ASYMOTOMATIC AND HEP-LOCKED. G-TUBE IN PLACE, PLACEMENT CHECKED. ABDOMINAL HERNIA NOTED. WEST CATHETER DRAINING URINE TO GRAVITY DRAINAGE BAG. SCD IN PLACE. BED IN LOWEST POSITION, HOB ELEVATED 45 DEGREES AND CALL LIGHT WITHIN REACH. WILL CONTINUE TO MONITOR.
[2017-05-14] MEDS: BLOOD GLUCOSE MONITORING 1 DEV DEV FS SCH ×4 (07:30→20:59)
[2017-05-14] MEDS ORDERED: PHENYTOIN 100 MG/4 ML UDC GT SCH (08:00)
[2017-05-14 08:43] LABS: T4 (THYROXINE) 2.7 ug/dL (4.5 - 12.0)
--- NOTE | 2017-05-14 08:45 | NUR ---
RESIDENT PHYSICIAN DR. SMITH MADE AWARE OF LOOSE STOOLS X 2. PER DR[address] SMITH, HOLD LACTULOSE AND SENOKOT.
--- NOTE | 2017-05-14 08:54 | NUR ---
VENT CHECK BS RHONCI I\L LAVAGE AND SX MOD YELLOW
[2017-05-14] MEDS: FERROUS SULFATE 325 MG TABEC PO SCH (08:57)
[2017-05-14] MEDS: LACTOBACILLUS RHAMNOSUS GG 1 EACH CAP PO SCH (08:57)
[2017-05-14] MEDS: THIAMINE 100 MG TAB GT SCH (08:57)
[2017-05-14] MEDS: DOCUSATE 100 MG/10 ML UDC GT SCH (08:58)
[2017-05-14] MEDS: ASCORBIC ACID 500 MG TAB GT SCH (08:58)
[2017-05-14] MEDS: GLYCOPYRROLATE 1 MG TAB GT SCH ×2 (08:59→20:57)
[2017-05-14] MEDS: METHIMAZOLE 5 MG TAB GT SCH ×2 (09:00→20:57)
[2017-05-14] MEDS: LISINOPRIL 10 MG TAB GT SCH (09:00)
[2017-05-14] MEDS: CLINICAL MONITORING MC SCH (09:00)
[2017-05-14] MEDS ORDERED: BISACODYL 10 MG SUPP RC SCH (09:00)
[2017-05-14] MEDS: PANTOPRAZOLE 40 MG INJ VIAL IVP SCH (09:00)
[2017-05-14] MEDS: LINEZOLID 600MG PREMIX 300 ML IV SCH ×2 (09:01→20:56)
--- NOTE | 2017-05-14 09:11 | NUR ---
PATIENT HAS BEEN SCREENED AND CATEGORIZED HIGH NUTRITION RISK. PATIENT WILL BE SEEN WITHIN 1-2 DAYS OF ADMISSION. 05/13/17-05/14/[address]
--- NOTE | 2017-05-14 09:30 | NUR ---
ADMINISTERED MORNING MEDICATIONS VIA G-TUBE. PT TOLERATED WELL. HELD DULCOLAX SUPP DUE TO LOOSE STOOLS X 4.
[2017-05-14] MEDS ORDERED: PROBIOTIC SCREEN 1 EA MISC MC PRN (10:30)
--- NOTE | 2017-05-14 10:52 | NUR ---
VENT CHECK BS RHONCI I\L LAVAGE AND SX MOD YELLOW
--- NOTE | 2017-05-14 11:02 | NUR ---
WOUND CARE EVALUATION NOTES: REASON FOR EVALUATION: LOW LUIS SCALE AND SACRALCOCCYX WOUND COMPLETE SKIN ASSESSMENT DONE ON THIS 61Y/O FEMALE PATIENT FROM [facility] TO [facility], WITH INITIAL DIAGNOSIS OF SOB AND FEVER. PAST MEDICAL HISTORY INCLUDE CVA WITH ICH, DIABETES, HYPERTENSION SEIZURE DISORDERS AND DEMENTIA. ALL ABOVE INFORMATION WAS OBTAINED FROM THE ADMISSION H&P. LABS ARE WBC 18.9, H/H 19.2/30.1, GLUCOSE 129, ALBUMIN 2.8, PT/INR 9.8/1.0 AND PTT19.2. CURRENT MEDS INCLUDE DILANTIN, ALBUTERAL, REGLAN AND LIPITOR PATIENT IS AWAKE,NON-VERBAL, EYES OPEN AND ABLE TO TRACK MOVEMENT. SKIN WARM TO TOUCH WNL, THICKENED TOENAILS, LEFT FOOT +2 EDEMA, NO HAIR GROWTH BLE AND BILATERAL PEDAL PULSES PRESENT. CENTRAL LINE LEFT IJ PATENT AND INTACT. #16 WEST CATHETER PATENT AND INTACT TO DEVONTE COLORED URINE IN MODERATE AMOUNT. NEEDS ASSISTANCE IN TURNING. PLAN OF CARE AND PRESSURE PREVENTIVE MEASURES DISCUSSED PRIMARY NURSE. 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, SCALP SKIN INTACT TRACHEOSTOMY STOMA SITE CLEAN AND SURROUNDING SKIN INTACT MULTIPLE ECCHYMOSIS TO FRONT CHEST AREA BILATERAL BREAST FOLDS INTERTRIGINOUS DERMATITIS LUQ AND GT STOMA SITE CLEAN AND SURROUNDING SKIN INTACT, MID ABDOMEN HERNIA SACRALCOCCYX STAGE II PRESSURE ULCER 0.5X0.5CM WITH SURROUNDING REDNESS TISSUE 1.5X1 CM FURTHER DAMAGE INDICATED BILATERAL HEELS BLANCHABLE REDNESS RECOMMENDATIONS: -CLEANSE BILATERAL BREAST FOLDS WITH SOAP AND WATER,PAT DRY APPLY ANTIFUNGAL CREAM BID -CLEANSE SACRALCOCCYX WITH NS, PAT DRY, APPLY Z GUARD COVER WITH OPTIC FORM BID AND PRN IF SOILING -TURN AND REPOSITION PATIENT Q2H TO LEFT AND RIGHT SIDE ONLY TO OFFLOAD SACRALCOCCYX -ASSESS AND MONITOR SKIN CONDITION DURING POSITION CHANGE, PLEASE PAY ATTENTION TO SACRALCOCCYX AND HEELS -OFFLOAD BILATERAL HEELS BY PLACING PILLOWS UNDER CALVES AT ALL TIMES, UNLESS OTHERWISE CONTRAINDICATED -PRESSURE REDISTRIBUTION SURFACE THERAPY -KEEP SKIN CLEAN AND DRY AT ALL TIMES. -RD CONSULT RECOMMENDATIONS DISCUSSED WITH PRIMARY RN AND DR. SMITH WILL FOLLOW UP PATIENT Q 7 -10 DAYS AND PRN. PLEASE CONTACT WOUND CARE NURSE FOR ANY CONCERNS AND CHANGES IN WOUND CONDITION
--- NOTE | 2017-05-14 11:16 | NUR ---
05/14/17 RD INITIAL ASSESSMENT COMPLETED PLEASE REFER TO NUTRITION ASSESSMENT UNDER CARE ACTIVITY FOR ESTIMATED NUTRITIONAL NEEDS. 1. WHEN MEDICALLY FEASIBLE, INITIATE ENTERAL NUTRITION SUPPORT VIA G-TUBE: DIABETISOURCE AC TO START SLOW AT 30 ML/HR, ADVANCE 10 ML Q8H TO A GOAL RATE OF 75 ML/HR (PROVIDES 2160 KCAL, 108 G PROTEIN - MEETS 98% KCAL+PROTEIN ESTIMATED NEEDS) 2. CONTINUE VITAMIN C SUPPLEMENT 3. RD TO FOLLOW-UP 2-3 DAYS, HIGH RISK MONICA JARRETT RD
--- NOTE | 2017-05-14 11:29 | NUR ---
DR. RODRÍGUEZ CAME TO SEE PT. WILL FOLLOW UP WITH NEW ORDERS.
--- NOTE | 2017-05-14 11:30 | NUR ---
DR. RODRÍGUEZ MADE AWARE OF PT'S LOOSE BM X 4.
--- NOTE | 2017-05-14 13:30 | NUR ---
RESIDENT PHYSICIAN DR. SMITH CAME TO SEE AND EXAMINE PT. WILL FOLLOW UP WITH NEW ORDERS.
--- NOTE | 2017-05-14 13:31 | NUR ---
DR. SMITH MADE AWARE OF LOW CALCIUM LEVEL OF 7.7.
[2017-05-14] MEDS: HYDRAGUARD CREAM TP SCH (13:58)
[2017-05-14] MEDS: Z-GUARD PASTE TP SCH (13:59)
--- NOTE | 2017-05-14 15:08 | NUR ---
VENT CHECK BS COARSE I\L LAVAGE AND SX LG YELLOW
--- NOTE | 2017-05-14 16:00 | NUR ---
ORAL CARE GIVEN. REPOSITIONED PT. PT TOLERATED WELL. NO SIGNS OF ACUTE DISTRESS NOTED AT THIS TIME. BED IN LOWEST POSITION AND CALL LIGHT WITHIN REACH. WILL CONTINUE TO MONITOR.
--- NOTE | 2017-05-14 17:02 | NUR ---
VENT CHECK BS COARSE I\L LAVAGE AND SX LG YELLOW
--- NOTE | 2017-05-14 18:00 | NUR ---
GT FEEDING STARTED. DIABETISOURCE AT 20 ML/HR WITH 50 ML H20 FLUSHES Q 4 HRS. HOB ELEVATED AT ALL TIMES.
--- NOTE | 2017-05-14 19:00 | NUR ---
AWAKE, DOES NOT FOLLOW COMMANDS. MOVES RT UPPER EXT. WIPES FACE AT TIMES. NO RESP DISTRESS NOTED. TRACH TO VENT TV 500,FI02 40%, PEEP 5, AC 16/MIN. REPORT GIVEN TO CARTER GAXIOLA.
--- NOTE | 2017-05-14 19:10 | NUR ---
RECEIVED REPORT FROM VERONICA RN AT BEDSIDE, PT IS OPEN EYES, NON VERBAL, UNABLE TO FOLLOW COMMANDS, RIGHT SIDE OF HEAD WITH DEFORMITY NOTED. CENTRAL LING TO LEFT IJ WITH TLC, PATENT TO EACH LUMEN, RUNNING WITH NS AT 150ML/HR AND LEVOPHED AT 5MCG/MIN. TRACH TO VENT WITH SETTING FIO2 40, RR 16, TV 500, PEEP 5, NO S/SX OF RESPIRATORY DISTRESS, CLEAR LUNG SOUNDS. SR ON POOL HALL INSPECTOR. SOFT ABDOMEN WITH ACTIVE BOWEL SOUNDS, GT WITH TUBE FEEDING DIABETISOURCE AT 20ML/HR, 5ML RESIDUES NOTED, WEST CATHETER IN PLACE WITH CLEAR YELLOW URINE IN BAG, BEDBOUND, LEFT SIDE WEAKNESS NOTED, SCD'S ON BLE FOR PREVENTION, SKIN WARM AND DRY TO TOUCH, OPEN WOUND PRESENT (SEE WOUND ASSESSMENT), PERIPHERAL IV LINE TO LEFT HAND, 22GA, PATENT AND SL. 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 SAFETY PRECAUTION AND SEIZURE PRECAUTION MAINTAINED, VSS, FLACC 0, WILL CONTINUE TO MONITOR.
--- NOTE | 2017-05-14 19:22 | NUR ---
RECEIVED PT ON THE SAME VENT SETTINGS, HHN TX IN LINE, SX SMALL CLOUDY THIN SECRETION, BS ARE COURSE TO CLEAR AFTER SX, VITALS STABLE , NO DISTRESS NOTED
--- NOTE | 2017-05-14 20:15 | NUR ---
ORAL CARE PROVIDED, POSITION CHANGED FOR OFF LOAD PRESSURE.
[2017-05-14] MEDS: NYSTATIN/TRIAMCINOLONE CRM 15 GM TUBE TP SCH (20:57)
[2017-05-14] MEDS: ATORVASTATIN 20 MG TAB GT SCH (20:57)
[2017-05-14] MEDS ORDERED: DOCUSATE 100 MG/10 ML UDC GT SCH (21:00)
--- NOTE | 2017-05-14 22:00 | NUR ---
NO CHANGE OF CONDITION AT THIS TIME, VSS, POSITION CHANGED FOR OFF LOAD PRESSURE.
--- NOTE | 2017-05-14 23:50 | NUR ---
DR. SPANGLER CAME IN TO SEE PT AT BEDSIDE, NO NEW ORDER AT THIS TIME.
[2017-05-15] VITALS (47 sets, daily range): BP systolic 86–134; BP diastolic 42–72
[2017-05-15] MEDS: Z-GUARD PASTE TP SCH ×2 (00:26→12:42)
[2017-05-15] MEDS: HYDRAGUARD CREAM TP SCH ×2 (00:26→12:42)
--- NOTE | 2017-05-15 01:00 | NUR ---
WOUND CARE PROVIDED TO SACRAL AREA, AND RIGHT CHEST UNDER FOLD, PT TOLERATED WELL.
--- NOTE | 2017-05-15 02:00 | NUR ---
NO S/S OF DISTRESS, V/S, POSITION CHANGED FOR OFF LOAD PRESSURE.
[2017-05-15] MEDS: NOREPINEPHRINE 4 MG in DEXTROSE 5% 250 ML IV PRN (02:09)
--- NOTE | 2017-05-15 04:00 | NUR ---
AM CARE PROVIDED, ORAL CARE PROVIDED, WEST CATHETER CARE PROVIDED, POSITION CHANGED FOR OFF LOAD PRESSURE.
[2017-05-15] MEDS: METOCLOPRAMIDE 10 MG/2 ML INJ VIAL IVP SCH ×3 (04:33→21:09)
[2017-05-15] MEDS: MEROPENEM 1,000 MG in NACL 0.9% 100 ML IV SCH ×2 (04:33→12:41)
[2017-05-15 04:52] LABS: BASOPHILS # (AUTO) 0.3 K/uL (0.00-0.22); BASOPHILS % (AUTO) 2.2 % (0.0-2.0); EOSINOPHILS # (AUTO) 0.3 K/uL (0-0.4); EOSINOPHILS % (AUTO) 2.4 % (0.0-4.0); HEMATOCRIT 27.7 % (36-48); HEMOGLOBIN 9.1 g/dL (12.0-16.0); LYMPHOCYTES # (AUTO) 2.2 K/uL (2.5-16.5); MEAN CORPUSCULAR HEMOGLOBIN 30 pg (27-31); MEAN CORPUSCULAR HGB CONC 33 g/dL (33-37); MEAN CORPUSCULAR VOLUME 91 fL (80-94); MONOCYTES # (AUTO) 0.6 K/uL (0.8-1.0); NEUTROPHILS # (AUTO) 8.8 K/uL (1.8-7.7); NEUTROPHILS % (AUTO) 72.4 % (42.2-75.2); PLATELET COUNT (AUTO) 312 K/uL (140-450); RED BLOOD CELL COUNT(AUTO) 3.04 MIL/uL (4.20-5.40); RED CELL DISTRIBUTION WIDTH 15.7 % (11.6-13.7); WHITE BLOOD COUNT (AUTO) 12.2 K/uL (4.8-10.8)
[2017-05-15 05:16] LABS: ANION GAP 8.6 (8-16); CARBON DIOXIDE 23.6 mmol/L (21-32); CREATININE 0.7 mg/dL (0.6-1.3); POTASSIUM 3.2 mmol/L (3.5-5.1)
[2017-05-15] MEDS: NACL 0.9% 1,000 ML IV SCH ×2 (05:25→10:22)
--- NOTE | 2017-05-15 05:37 | NUR ---
CHANGE INNER CANNULA, DRESSING, TRACK CARE DONE, CHANGED HME AND THORPE, NO DISTRESS NOTED, SX LARGE CREAM THIN SECRETION.
[2017-05-15] MEDS: ALBUTEROL SULFATE/IPRATROPIU 3 ML SOL IH SCH ×3 (06:45→18:55)
--- NOTE | 2017-05-15 06:45 | NUR ---
RECEIVED ON A 2heuresavantSCAPE R860 VENTILATOR PLUGGED INTO RED OUTLET TOLERATING WELL WITHOUT ADVERSE REACTIONS TO A PORTEX DCT #7 AIRWAY SECURED WITH A CAITLIN TRACH TIE CUFF PRESSURE CHECKED AMBU BAG NOTED AT HOB LOC ASLEEP RESTING WELL BREATH SOUNDS RHONCHI BILATERAL WITH GOOD CHEST RISE DEEP TRACHEAL SUCTION FOR LARGE THIN PINK FROTHY SECRETIONS AIRWAY PATENT
[2017-05-15] MEDS: BLOOD GLUCOSE MONITORING 1 DEV DEV FS SCH ×4 (06:54→21:14)
--- NOTE | 2017-05-15 07:20 | NUR ---
RECEIVED A REPORT FROM CARTER MATTHEW RN. PT OPENS EYES BUT NON RESPONSIVE TO VOICE. TRACH TO VENT AND SETTING AT FiO2 40, TV 500, AC 16, PEEP 5. NO S/SX OF ACUTE RESPIRATORY DISTRESS AND FLACC 0. SR ON THE MONITOR. SKIN WARM TO TOUCH. IV SITE ON LT IJ [id number], PATENT AND INTACT. 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 NO EDEMA NOTED. SEIZURE PRECAUTION WITH BILATERAL PAD APPLIED. G-TUBE FEEDING IS ON HOLD FOR SCHEDULED EGD TODAY. SAFETY PRECAUTION. BED IN LOW POSITION. PT IS STABLE AND WILL CONTINUE TO MONITOR. Addendum: 05/15/17 at 1048 by Emmett Kaminski RN WEST CATHETER DRAINING CLEAR YELLOW URINE. CALL LIGHT WITHIN REACH.
--- NOTE | 2017-05-15 08:00 | NUR ---
RESIDENT GROUP IN TO SEE PT. WILL FOLLOW UP ON ORDERS.
--- NOTE | 2017-05-15 08:21 | NUR ---
INFORMED DR. SMITH ABOUT ABNORMAL LEVEL OF POTASSIUM 3.2, HGB 9.1, CA 7.6 AND SCANT AMOUNT OF DRAINAGE AT FEEING TUBE STOMA SITE. PER DR. SMITH ALL SCHEDULED MORNING MEDICATIONS TO BE GIVEN AND HE IS AWARE OF SCHEDULED EGD AT 11AM TODAY. WILL FOLLOW UP ON ORDERS.
[2017-05-15] MEDS: LACTULOSE 20 GM/30 ML UDC GT SCH (08:36)
[2017-05-15] MEDS: GLYCOPYRROLATE 1 MG TAB GT SCH ×2 (08:36→21:10)
[2017-05-15] MEDS: LINEZOLID 600MG PREMIX 300 ML IV SCH (08:37)
[2017-05-15] MEDS: LACTOBACILLUS RHAMNOSUS GG 1 EACH CAP PO SCH (08:37)
[2017-05-15] MEDS: FERROUS SULFATE 325 MG TABEC PO SCH (08:37)
[2017-05-15] MEDS: LANSOPRAZOLE 30 MG CAPDR GT SCH (08:37)
[2017-05-15] MEDS: THIAMINE 100 MG TAB GT SCH (08:37)
[2017-05-15] MEDS: ASCORBIC ACID 500 MG TAB GT SCH (08:37)
[2017-05-15] MEDS: METHIMAZOLE 5 MG TAB GT SCH ×2 (08:37→21:08)
[2017-05-15] MEDS: LISINOPRIL 10 MG TAB GT SCH (08:38)
[2017-05-15] MEDS: NYSTATIN/TRIAMCINOLONE CRM 15 GM TUBE TP SCH ×2 (08:38→21:13)
--- NOTE | 2017-05-15 08:58 | NUR ---
PT TOLERATED MEDICATIONS WELL. NO GASTRIC RESIDUAL FROM G-TUBE NOTED. WILL CONTINUE TO MONITOR Addendum: 05/15/17 at 1048 by Emmett Kaminski RN HOLD ZESTRIL DUE TO LOW BP
[2017-05-15] MEDS ORDERED: BISACODYL 10 MG SUPP RC SCH (09:00)
--- NOTE | 2017-05-15 09:00 | NUR ---
RECEIVED CALL FROM DR. RODRÍGUEZ. UPDATED HIM ON PT'S STATUS. PER DR. RODRÍGUEZ, EGD SCHEDULED AROUND 1100.
[2017-05-15] MEDS: CLINICAL MONITORING MC SCH (09:11)
[2017-05-15] MEDS: CALCIUM CARB/VIT-D 500 MG/200 IU 1 TAB PO SCH (09:11)
[2017-05-15] MEDS ORDERED: KCL 20 MEQ/WATER INJ PREMIX 200 ML IV SCH (09:30)
--- NOTE | 2017-05-15 09:42 | NUR ---
ASLEEP NO EVIDENCE OF SOB NOTED BREATH SOUNDS RHONCHI BILATERAL GOOD CHEST RISE DEEP TRACHEAL SUCTION FOR LARGE THIN CLEAR TO YELLOW SECRETIONS AIRWAY PATENT SATURATION 100% ON FIO2 OF 40% TITRATED FIO2 TO 35% OXYGEN ORDER KEEP SATURATION GREATER THAN 92% ADMINISTRATIVE SUPERVISOR TO NOTIFY RN OF OXYGEN TITRATION
--- NOTE | 2017-05-15 10:00 | NUR ---
DR. ENRIQUE IN TO SEE PT. WILL FOLLOW UP ON ORDERS.
--- NOTE | 2017-05-15 11:01 | NUR ---
PT'S DAUGHTER, DAJA CALLED AND WAS UPDATED OF PT'S CURRENT CONDITION.
[2017-05-15] MEDS ORDERED: fentaNYL 0.05 MG/ML VIAL ONE (11:08)
[2017-05-15] MEDS ORDERED: diphenhydrAMINE 50 MG/ML VIAL ONE (11:09)
[2017-05-15] MEDS ORDERED: MIDAZOLAM 2 MG/2 ML VIAL ONE (11:09)
--- NOTE | 2017-05-15 11:22 | NUR ---
REPORTED TO DR. FIGUEROA FOR BLOOD SUGAR 68. WILL FOLLOW UP ON ORDERS.
[2017-05-15] MEDS ORDERED: DEXT 5% /NACL 0.9% 1,000 ML IV SCH (11:30)
--- NOTE | 2017-05-15 11:40 | NUR ---
NO EVIDENCE OF PULMONARY DISTRESS NOTED BREATH SOUNDS DIFFUSED RHONCHI BILATERAL GOOD CHEST RISE DEEP TRACHEAL SUCTION FOR LARGE CLEAR SECRETIONS AIRWAY PATENT EGD PROCEDURE IN-PROGRESS DR. BLANCO ATTENDING
--- NOTE | 2017-05-15 11:55 | NUR ---
EGD PROCEDURE IN PROGRESS DR. MAIKOL RODRÍGUEZ ATTENDING MANAGER PARK STANDBY
--- NOTE | 2017-05-15 11:55 | NUR ---
DR. RODRÍGUEZ IN FOR EGD AT BEDSIDE.
[2017-05-15] MEDS ORDERED: DEXT 5% / NACL 0.45% 1,000 ML IV SCH (12:15)
--- NOTE | 2017-05-15 12:15 | NUR ---
DR. MERINO IN TO SEE PT. WILL FOLLOW UP ON ORDERS
--- NOTE | 2017-05-15 12:15 | NUR ---
SATURATION 100% ON FIO2 OF 35% TITRATED FIO2 TO 30% INTERIOR SPECIALIST TO NOTIFY RN
[2017-05-15] MEDS ORDERED: fentaNYL 0.05 MG/ML VIAL IVP ONE (12:25)
[2017-05-15] MEDS: DEXT 5% / NACL 0.9% 1,000 ML IV SCH (12:42)
--- NOTE | 2017-05-15 12:55 | NUR ---
RESUMED G-TUBE FEEDING AT 30ML/HR PER DR. RODRÍGUEZ. NO RESIDUAL NOTED. WILL CONTINUE TO MONITOR.
--- NOTE | 2017-05-15 13:43 | NUR ---
AWAKE TOLERATING VENTILATORY SUPPORT WELL WITHOUT EVIDENCE OF ANY ADVERSE REACTIONS NOTED BREATH SOUNDS RHONCHI BILATERAL WITH GOOD CHEST RISE DEEP TRACHEAL SUCTION FOR MODERATE THICK WITH BLOOD TINGE SECRETIONS AIRWAY PATENT
--- NOTE | 2017-05-15 15:45 | NUR ---
TEMP 100.4 AND ADMINISTERED TYLENOL ORDERED. APPLIED COOLING MEASURE. WILL CONTINUE TO MONITOR.
--- NOTE | 2017-05-15 16:19 | NUR ---
NO DISTRESS NOTED BREATH SOUNDS RHONCHI BILATERAL DEEP TRACHEAL SUCTION FOR MODERATE THIN YELLOW TO CLEAR SECRETIONS
[2017-05-15] MEDS ORDERED: VANCOMYCIN PER PHARMACY MC PRN (16:40)
--- NOTE | 2017-05-15 17:40 | NUR ---
PT STABLE. NO S/SX OF ACUTE RESPIRATORY DISTRESS AND FLACC 0 NOTED. WILL CONTINUE TO MONITOR
--- NOTE | 2017-05-15 17:43 | NUR ---
RESTING WELL BREATH SOUNDS RHONCHI BILATERAL WITH GOOD CHEST RISE DEEP TRACHEAL SUCTION FOR MODERATE THIN YELLOW SECRETIONS AIRWAY PATENT
--- NOTE | 2017-05-15 17:57 | NUR ---
PT TOLERATED MEDS WELL.
--- NOTE | 2017-05-15 18:42 | NUR ---
DR. ROBLES IN TO SEE PT. WILL FOLLOW UP ON ORDERS
--- NOTE | 2017-05-15 19:08 | NUR ---
RECEIVED PT STABLE ON VENT SUPPORT AT DOCUMENTED SETTINGS, SXN'D MODERATED AMOUNTS OF THICK CLEAR SECRETIONS, HHN TX GIVEN, TOLERATED WELL, NO RESP DISTRESS OR SOB NOTED, PORTEX 7 TRACH SECURED/MIDLINE/PATENT, ALARMS SET AND AUDIBLE, AMBU BAG AT BEDSIDE, VENT PLUGGED INTO RED OUTLET, WILL CONTINUE TO MONITOR.
--- NOTE | 2017-05-15 19:12 | NUR ---
REPORT GIVEN AND ENDORSED CARE TO MINOR INIGUEZ. PT IS STABLE.
--- NOTE | 2017-05-15 19:15 | NUR ---
RECEIVE PT FROM BLAYNE RN AM SHIFT, PT AWAKE OPEN HER EYES,NON VERBAL. PT TRACH TO VENT WITH VENT SETTING AC 16 TV 500,FIO2 30, AND PEEP 5 TOLERATED WELL. NO S/S OF RESP.DISTRESS,NO SOB. RHONCHI TO BILATERAL LUNGS. HOB UP 30-45 DEGREE. LEFT IJ CENTRAL LINE WITH TRIPLE LUMEN INTACT WELL. IV D5 IN NS AT 50 CC/HR RUNNING WELL. PT ON SR ON MONITOR . GT INPLACE WITH DIABETIC SOURCE AT 30 CC/HR JOSE WELL WITH NO RESIDUAL. ABD SOFT NON DISTENDED. OPEN WOUND TO RIGHT BREAST AND SACRAL AREA,SEE SKIN ASSESSMENT.EDEMA NOTED LEFT HAND +1 NON PITTING AND LEFT FOOT +1 NON PITTING ELEVATED BOTH AREA WITH PILLOWS.F/C INPLACE WITH YELLOW CLEAR URINE ON THE BAG.SAFETY PRECAUTION RENDERED.
--- NOTE | 2017-05-15 20:22 | NUR ---
BLOOD SUGAR CHECKED DONE WITH RESULT IS 85,NO INSULIN NEEDED.
--- NOTE | 2017-05-15 20:50 | NUR ---
DR. SPANGLER CAME TO SEE PT AT BEDSIDE, NO NEW ORDER AT THIS TIME.
--- NOTE | 2017-05-15 21:00 | NUR ---
RT WAS SUCTIONING PT VIA TRACH AND MOUTH AND PT VOMITING X1 MEDIUM WITH FEEDING COLOR. NO S/S OF ASPIRATION NOTED, NO GT RESIDUAL NOTED. HOB UP 30-45 DEGREE KEPT CLEAN AND DRY. CONTINUE TO MONITOR.
[2017-05-15] MEDS: ATORVASTATIN 20 MG TAB GT SCH (21:09)
--- NOTE | 2017-05-15 21:10 | NUR ---
RT CHANGE FIO2 TO 28, PT TOLERATED WELL,NO S/S OF DISTRESS,NO SOB.SPO2 99%.
[2017-05-15] MEDS: VANCOMYCIN 1GM/DEXT 5% PREMIX 200 ML IV SCH (21:11)
--- NOTE | 2017-05-15 21:30 | NUR ---
NIGHT MEDICATION GIVEN TOLERATED WELL
--- NOTE | 2017-05-15 22:00 | NUR ---
GT FEEDING INCREASE TO 40 CC/HR,NO GT RESIDUAL,NO VOMITING AT THIS TIME.
[2017-05-16] VITALS (24 sets, daily range): BP systolic 98–145; BP diastolic 41–88
--- NOTE | 2017-05-16 | NUR ---
PT SLEEP WELL,NO S/S OF RESP.DISTRESS,NO SOB.REPOSITION FOR COMFORT.
[2017-05-16] MEDS: HYDRAGUARD CREAM TP SCH ×2 (01:15→12:27)
[2017-05-16] MEDS: Z-GUARD PASTE TP SCH ×2 (01:16→12:27)
--- NOTE | 2017-05-16 02:00 | NUR ---
PT SLEEP WELL EASY TO AWAKE.NO S/S OF PAIN OR DISCOMFORT.
--- NOTE | 2017-05-16 04:30 | NUR ---
AM CARE GIVEN. MORNING BLOOD DRAWN FROM I J CENTRAL LINE DONE.BLOOD FLOWING WELL,FLUSING GIVEN TOLERATED WELL. KEPT CLEAN AND DRY.
[2017-05-16 04:44] LABS: BASOPHILS # (AUTO) 0.2 K/uL (0.00-0.22); BASOPHILS % (AUTO) 2.3 % (0.0-2.0); EOSINOPHILS # (AUTO) 0.3 K/uL (0-0.4); EOSINOPHILS % (AUTO) 3.5 % (0.0-4.0); HEMATOCRIT 28.2 % (36-48); HEMOGLOBIN 9.1 g/dL (12.0-16.0); LYMPHOCYTES # (AUTO) 1.5 K/uL (2.5-16.5); LYMPHOCYTES % (AUTO) 15.7 % (20.5-51.1); MEAN CORPUSCULAR HEMOGLOBIN 30 pg (27-31); MEAN CORPUSCULAR HGB CONC 32 g/dL (33-37); MEAN CORPUSCULAR VOLUME 91 fL (80-94); MONOCYTES # (AUTO) 0.6 K/uL (0.8-1.0); MONOCYTES % (AUTO) 6.3 % (1.7-9.3); NEUTROPHILS # (AUTO) 6.9 K/uL (1.8-7.7); NEUTROPHILS % (AUTO) 72.2 % (42.2-75.2); PLATELET COUNT (AUTO) 302 K/uL (140-450); RED BLOOD CELL COUNT(AUTO) 3.08 MIL/uL (4.20-5.40); RED CELL DISTRIBUTION WIDTH 15.6 % (11.6-13.7); WHITE BLOOD COUNT (AUTO) 9.5 K/uL (4.8-10.8)
[2017-05-16] MEDS: METOCLOPRAMIDE 10 MG/2 ML INJ VIAL IVP SCH ×3 (05:07→20:29)
--- NOTE | 2017-05-16 05:34 | NUR ---
URINE 950 CC YELLOW CLEAR COLOR.
[2017-05-16 05:47] LABS: ANION GAP 11.2 (8-16); CARBON DIOXIDE 25.3 mmol/L (21-32); CREATININE 0.7 mg/dL (0.6-1.3); POTASSIUM 3.5 mmol/L (3.5-5.1)
[2017-05-16] MEDS ORDERED: PHENYTOIN 100 MG/4 ML UDC GT SCH (06:36)
[2017-05-16] MEDS: PHENYTOIN 100 MG/4 ML UDC GT SCH ×3 (06:36→17:30)
[2017-05-16] MEDS: BLOOD GLUCOSE MONITORING 1 DEV DEV FS SCH ×4 (06:47→20:51)
[2017-05-16] MEDS: ALBUTEROL SULFATE/IPRATROPIU 3 ML SOL IH SCH ×3 (07:15→18:57)
--- NOTE | 2017-05-16 07:15 | NUR ---
RECEIVED ON A 8020selectSCAPE R860 VENTILATOR PLUGGED INTO RED OUTLET TOLERATING WELL WITHOUT ADVERSE REACTIONS NOTED TO A PORTEX DCT #7 AIRWAY SECURED WITH A CAITLIN TRACH TIE CUFF PRESSURE CHECKED NOTED AMBU BAG NOTED AT HOB LOC ASLEEP BREATH SOUNDS RHONCHI BILATERAL WITH GOOD CHEST RISE DEEP TRACHEAL SUCTION FOR MODERATE THIN YELLOW SECRETIONS AIRWAY PATENT
--- NOTE | 2017-05-16 07:22 | NUR ---
RECEIVED A REPORT FROM MINOR INIGUEZ. PT CLOSED EYES, NONVERBAL AND UNRESPONSIVE TO VOICE. TRACH TO VENT AND SETTING AT FiO2 28, TV 500, AC 16, PEEP 5. NO S/SX OF ACUTE RESPIRATORY DISTRESS AND FLACC 0 NOTED. SR ON THE MONITOR. SKIN WARM TO TOUCH. G-TUBE IN PLACE AND FEEDING AT 40ML/HR. WEST CATHETER DRAINING CLEAR YELLOW URINE. IV SITE ON LT IJ [id number]. ON SCD FOR VTE PROPHYLAXIS AND CONTACT ISOLATION FOR HX OF VRE. SAFETY PRECAUTION. BED IN LOW POSITION. CALL LIGHT WITHIN REACH. WILL CONTINUE TO MONITOR.
--- NOTE | 2017-05-16 07:26 | NUR ---
RESIDENT GROUP IN TO SEE PT. WILL FOLLOW UP ON ORDERS.
[2017-05-16] MEDS: CALCIUM CARB/VIT-D 500 MG/200 IU 1 TAB PO SCH (08:08)
[2017-05-16] MEDS: LACTOBACILLUS RHAMNOSUS GG 1 EACH CAP PO SCH (08:08)
[2017-05-16] MEDS: DEXT 5% / NACL 0.9% 1,000 ML IV SCH (08:08)
[2017-05-16] MEDS: LACTULOSE 20 GM/30 ML UDC GT SCH (08:08)
[2017-05-16] MEDS: GLYCOPYRROLATE 1 MG TAB GT SCH ×2 (08:09→20:29)
[2017-05-16] MEDS: LANSOPRAZOLE 30 MG CAPDR GT SCH (08:09)
[2017-05-16] MEDS: THIAMINE 100 MG TAB GT SCH (08:09)
[2017-05-16] MEDS: ASCORBIC ACID 500 MG TAB GT SCH (08:09)
[2017-05-16] MEDS: METHIMAZOLE 5 MG TAB GT SCH ×2 (08:09→20:30)
[2017-05-16] MEDS: FERROUS SULFATE 325 MG TABEC PO SCH (08:09)
[2017-05-16] MEDS: NYSTATIN/TRIAMCINOLONE CRM 15 GM TUBE TP SCH ×2 (08:10→21:06)
[2017-05-16] MEDS: LISINOPRIL 10 MG TAB GT SCH (08:10)
--- NOTE | 2017-05-16 09:00 | NUR ---
PT TOLERATED MEDICATIONS WELL.
--- NOTE | 2017-05-16 09:16 | NUR ---
RESTING COMFORTABLY NO DISTRESS NOTED
[2017-05-16] MEDS: VANCOMYCIN 1GM/DEXT 5% PREMIX 200 ML IV SCH ×2 (09:32→22:02)
--- NOTE | 2017-05-16 10:30 | NUR ---
DR. ENRIQUE IN TO SEE PT. WILL FOLLOW UP ON ORDERS.
--- NOTE | 2017-05-16 10:51 | NUR ---
PT STABLE. NO S/SX OF ACUTE RESPIRATORY DISTRESS AND FLACC 0 NOTED. WILL CONTINUE TO MONITOR.
--- NOTE | 2017-05-16 11:27 | NUR ---
PT TOLERATED MEDICATION WELL.
--- NOTE | 2017-05-16 11:40 | NUR ---
NO EVIDENCE OF PULMONARY DISTRESS NOTED BREATH SOUND COARSE RHONCHI BILATERAL GOOD CHEST RISE DEEP TRACHEAL SUCTION FOR MODERATED THIN YELLOW SECRETIONS AIRWAY PATENT OROPHARYNX SUCTION FOR COPIOUS GELATINOUS CLEAR TO YELLOW TINGE SECRETIONS
[2017-05-16] MEDS ORDERED: FOAM DRESSING TP SCH (11:55)
[2017-05-16] MEDS ORDERED: FOAM DRESSING TP PRN (12:00)
[2017-05-16] MEDS: FOAM DRESSING TP SCH (12:26)
--- NOTE | 2017-05-16 13:00 | NUR ---
NO S/SX OF RESPIRATORY DISTRESS AND FLACC 0. PT STABLE AND TOLERATED MEDICATION WELL. WILL CONTINUE TO MONITOR.
--- NOTE | 2017-05-16 13:08 | NUR ---
NO APPARENT SOB NOTED AT THIS TIME TOLERATING VENTILATORY SUPPORT WELL WITHOUT INCIDENT BREATH SOUNDS COARSE RHONCHI BILATERAL DEEP TRACHEAL SUCTION FOR SMALL THIN YELLOW SECRETIONS OROPHARYNX SUCTION FOR LARGE CLEAR TO SCATTERED THICK PALE WHITE SECRETINS
--- NOTE | 2017-05-16 15:16 | NUR ---
NO APPARENT ANY CHANGE OF CONDITION AT THIS TIME. CONTINUE ON TRACH TO VENT WITH SAME SETTING AND TOLERATING WITH TUBE FEEDING. WILL CONTINUE TO MONITOR.
--- NOTE | 2017-05-16 15:19 | NUR ---
RESTING WELL NO DISTRESS NOTED BREATH SOUNDS DIFFUSED RALES BILATERAL GOOD CHEST RISE DEEP TRACHEAL SUCTION FOR NO SECRETION RETURN AIRWAY PATENT
--- NOTE | 2017-05-16 16:40 | NUR ---
PT'S DAUGHTER, DAJA CALLED AND WAS UPDATED OF PT'S CURRENT CONDITION.
--- NOTE | 2017-05-16 17:16 | NUR ---
NO DISTRESS NOTED BREATH SOUNDS DIFFUSED RHONCHI BILATERAL WITH GOOD CHEST RISE DEEP TRACHEAL SUCTION FOR SMALL THIN YELLOW SECRETIONS AIRWAY PATENT OROPHARYNX FOR LARGE THIN CLEAR SECRETIONS
--- NOTE | 2017-05-16 17:54 | NUR ---
PT TOLERATED MEDICATION WELL. NO S/SX OF BLEEDING AND RESPIRATORY DISTRESS AT THIS TIME. WILL CONTINUE TO MONITOR
--- NOTE | 2017-05-16 19:12 | NUR ---
REPORT GIVEN AND ENDORSED CARE TO SERVICER MINOR VARELA. PT STABLE.
--- NOTE | 2017-05-16 19:30 | NUR ---
recieved pt. lethargic, with trache to vent tolerated well, gt intact and patent, tolerates tube feeding, no residual, turned to sides, no s/s of cardio resp distress,
[2017-05-16] MEDS: ATORVASTATIN 20 MG TAB GT SCH (20:29)
[2017-05-17] VITALS (24 sets, daily range): BP systolic 89–126; BP diastolic 41–86
[2017-05-17] MEDS: PHENYTOIN 100 MG/4 ML UDC GT SCH ×4 (00:01→18:33)
[2017-05-17] MEDS: HYDRAGUARD CREAM TP SCH ×2 (00:02→12:49)
[2017-05-17] MEDS: Z-GUARD PASTE TP SCH ×2 (00:03→12:49)
--- NOTE | 2017-05-17 00:45 | NUR ---
HAD LOOSE BM, KEPT CLEAN, DRY AND COMFORTABLE
[2017-05-17 05:01] LABS: BASOPHILS # (AUTO) 0.4 K/uL (0.00-0.22); BASOPHILS % (AUTO) 4.2 % (0.0-2.0); EOSINOPHILS # (AUTO) 0.4 K/uL (0-0.4); EOSINOPHILS % (AUTO) 4.9 % (0.0-4.0); HEMATOCRIT 28.5 % (36-48); HEMOGLOBIN 9.6 g/dL (12.0-16.0); LYMPHOCYTES # (AUTO) 1.7 K/uL (2.5-16.5); LYMPHOCYTES % (AUTO) 18.6 % (20.5-51.1); MEAN CORPUSCULAR HEMOGLOBIN 31 pg (27-31); MEAN CORPUSCULAR HGB CONC 34 g/dL (33-37); MEAN CORPUSCULAR VOLUME 92 fL (80-94); MONOCYTES # (AUTO) 0.6 K/uL (0.8-1.0); MONOCYTES % (AUTO) 6.4 % (1.7-9.3); NEUTROPHILS # (AUTO) 5.9 K/uL (1.8-7.7); NEUTROPHILS % (AUTO) 65.9 % (42.2-75.2); PLATELET COUNT (AUTO) 317 K/uL (140-450); RED BLOOD CELL COUNT(AUTO) 3.09 MIL/uL (4.20-5.40); RED CELL DISTRIBUTION WIDTH 15.3 % (11.6-13.7)
[2017-05-17] MEDS: METOCLOPRAMIDE 10 MG/2 ML INJ VIAL IVP SCH ×3 (05:17→20:43)
[2017-05-17 06:23] LABS: ANION GAP 7.9 (8-16); CARBON DIOXIDE 27.3 mmol/L (21-32); CREATININE 0.6 mg/dL (0.6-1.3); POTASSIUM 3.2 mmol/L (3.5-5.1)
[2017-05-17] MEDS: ALBUTEROL SULFATE/IPRATROPIU 3 ML SOL IH SCH ×3 (07:04→19:05)
--- NOTE | 2017-05-17 07:05 | NUR ---
RECEIVED ON A SynapticMashSCAPE R860 VENTILATOR PLUGGED ONTO RED OUTLET TOLERATING WELL WITHOUT ADVERSE REACTIONS NOTED TO A PORTEX DCT #7 SECURED WITH A CAITLIN TRACH TIE CUFF PRESSURE CHECKED NOTED AMBU BAG NOTED AT HOB LOC ASLEEP BREATH SOUNDS EXP WHEEZE AND RALES BILATERAL GOOD CHEST RISE DEEP TRACHEAL SUCTION FOR SMALL THIN YELLOW SECRETIONS AIRWAY PATENT
[2017-05-17] MEDS: BLOOD GLUCOSE MONITORING 1 DEV DEV FS SCH ×4 (08:30→21:18)
[2017-05-17] MEDS: LACTULOSE 20 GM/30 ML UDC GT SCH (09:00)
--- NOTE | 2017-05-17 09:13 | NUR ---
ASLEEP RESTING COMFORTABLY WITHOUT SOB NOTED BREATH SOUNDS COARSE INSP/EXP RHONCHI BILATERAL GOOD CHEST RISE AIRWAY PATENT DEEP TRACHEAL SUCTION FOR MODERATE THIN YELLOW SECRETIONS OROPHARYNX SUCTION FOR LARGE GELATINOUS CLEAR SECRETIONS
[2017-05-17] MEDS ORDERED: KCL 20 MEQ/WATER INJ PREMIX 200 ML IV SCH (09:29)
--- NOTE | 2017-05-17 09:31 | NUR ---
AWAKE CHANGE TO WEANING MODE OF CPAP WITH A PS [id number] PEEP 5 cmH2O GOOD CHEST RISE LICENSED APPRAISER TO MONITOR ANKIT/RN AWARE
[2017-05-17] MEDS: THIAMINE 100 MG TAB GT SCH (09:45)
[2017-05-17] MEDS: LANSOPRAZOLE 30 MG CAPDR GT SCH (09:45)
[2017-05-17] MEDS: CALCIUM CARB/VIT-D 500 MG/200 IU 1 TAB PO SCH (09:46)
[2017-05-17] MEDS: LACTOBACILLUS RHAMNOSUS GG 1 EACH CAP PO SCH (09:46)
[2017-05-17] MEDS: ASCORBIC ACID 500 MG TAB GT SCH (09:46)
[2017-05-17] MEDS: FERROUS SULFATE 325 MG TABEC PO SCH (09:46)
[2017-05-17] MEDS: GLYCOPYRROLATE 1 MG TAB GT SCH ×2 (09:47→20:44)
[2017-05-17] MEDS: METHIMAZOLE 5 MG TAB GT SCH ×2 (09:48→20:44)
[2017-05-17] MEDS: LISINOPRIL 10 MG TAB GT SCH (09:49)
[2017-05-17] MEDS: NYSTATIN/TRIAMCINOLONE CRM 15 GM TUBE TP SCH ×2 (09:50→20:45)
--- NOTE | 2017-05-17 09:52 | NUR ---
TOLERATING WEANING WELL WITHOUT INCIDENT GOOD CHEST RISE
--- NOTE | 2017-05-17 11:20 | NUR ---
DEEP TRACHEAL SUCTIONING FOR LARGE FROTHY WHITE SECRETIONS AIRWAY PATENT
--- NOTE | 2017-05-17 11:39 | NUR ---
05/17/17 RD FOLLOW-UP ASSESSMENT COMPLETED PLEASE REFER TO NUTRITION ASSESSMENT UNDER CARE ACTIVITY FOR ESTIMATED NUTRITIONAL NEEDS. 1. CONTINUE ENTERAL NUTRITION SUPPORT - DIABETISOURCE AC AT GOAL RATE OF 40 ML/HR, ADVANCE TOLERATED TO GOAL RATE OF 75 ML/HR + 50 ML FREE WATER FLUSH Q4H + PROSOURCE 1X/DAILY 2. RD TO FOLLOW-UP 2-3 DAYS, HIGH RISK MONICA JARRETT, ROBERT
[2017-05-17] MEDS: FOAM DRESSING TP SCH (12:47)
--- NOTE | 2017-05-17 12:52 | NUR ---
NO DISTRESS NOTED RN'S AT BEDSIDE FOR PATIENT PHYSICAL HYGIENE AND REPOSITION MANAGER STATISTICS TO ATTEMPT HHN THERAPY AT A LATER TIME
--- NOTE | 2017-05-17 13:21 | NUR ---
TOLERATING WEANING WELL WITHOUT ANY EVIDENCE OF PULMONARY DISTRESS NOTED BREATH SOUNDS COARSE RHONCHI BILATERAL DEEP TRACHEAL SUCTION FOR COPIOUS THIN TO FROTHY WHITE SECRETIONS AIRWAY PATENT OROPHARYNX SUCTION FOR MODERATE CLEAR SECRETIONS
--- NOTE | 2017-05-17 13:48 | NUR ---
SPOKE WITH RONALDO FROM [facility] [place]. SHE SAID THE PATIENT IS ON A 7 DAY BED HOLD, BUT WILL TAKE THE PATIENT ON SATURDAY LONG SHE DOESN'T NEED ISOLATION.
--- NOTE | 2017-05-17 15:37 | NUR ---
NO SOB NOTED BREATH SOUNDS CLEAR RIGHT SIDE TO DIFFUSED INSP RHONCHI LEFT SIDE GOOD CHEST RISE DEEP TRACHEAL SUCTION FOR THIN PALE YELLOW SECRETIONS AIRWAY PATENT
--- NOTE | 2017-05-17 17:33 | NUR ---
HELD FEEDING FOR DILANTIN MEDS
--- NOTE | 2017-05-17 17:41 | NUR ---
Pt asleep, tolerating weaning well. No distress present.
--- NOTE | 2017-05-17 18:23 | NUR ---
dr pfeiffer updated about patients condition.
[2017-05-17] MEDS ORDERED: KCL 20 MEQ/WATER INJ PREMIX 200 ML IV ONE (18:30)
--- NOTE | 2017-05-17 18:43 | NUR ---
pt tolerating weaning mode.pt kept clean and dry .nsr in the monitor.flacc=0
--- NOTE | 2017-05-17 19:30 | NUR ---
RECEIVED REPORT FROM MINOR PHAM. INITIAL ASSESSMENT COMPLETED. PT IS NON-VERBAL, TRACH TO VENT FIO2 28%, TV 500, AC 12, PEEP 5. WITH LEFT IJ TLC, BLUE PORT UNABLE TO FLUSHED, WHITE AND BROWN PORT NO BLOOD RETURN. CHARGE NURSE AWARE, WILL NOTIFY DR. ROBLES. ATTACHED TO FILM CUTTER AND PULSE OXIMETER. GT IN PLACE, PT TOLERATED WELL AT 40ML/HR,CONTINUOUS FEEDING, NO GASTRIC RESIDUAL AT THIS TIME. WEST CATH IN PLACE. SCDS IN PLACE. CONTACT PRECAUTION MAINTAINED. BED IN LOW POSITION. SAFETY MEASURE ENSURE. WILL CONTINUE TO MONITOR.
[2017-05-17] MEDS ORDERED: FLUCONAZOLE 200 MG/NS PREMIX 100 ML IV SCH (20:00)
[2017-05-17] MEDS: ATORVASTATIN 20 MG TAB GT SCH (20:43)
--- NOTE | 2017-05-17 21:30 | NUR ---
DR. SPANGLER IN THE UNIT. UPDATED OF PT'S CONDITION. WILL FOLLOW UP ORDER. DR. SPANGLER DISCONTINUED DIFFLUCAN IV.
[2017-05-17] MEDS ORDERED: ALTEPLASE 100 MG VIAL IV SCH (21:45)
[2017-05-17] MEDS ORDERED: ALTEPLASE 2 MG VIAL MC SCH (21:50)
--- NOTE | 2017-05-17 21:56 | NUR ---
DR. ROBLES AWARE OF PATIENT'S LEFT IJ TLC. BLUE PORT UNABLE TO FLUSH, WHITE AND BROWN PORT NO BLOOD RETURN. WILL FOLLOW UP ORDER. WILL CONTINUE TO MONITOR.
[2017-05-17] MEDS ORDERED: WATER STERILE 10 ML MC ONE (22:47)
--- NOTE | 2017-05-17 23:00 | NUR ---
FEEDING HELD FOR DILANTIN AT 0000.
--- NOTE | 2017-05-17 23:30 | NUR ---
ABLE TO ASPIRATE WITH BLOOD RETURN AND ABLE TO FLUSH BLUE PORT AFTER CATHFLO ACTIVASE WAS GIVEN. WILL CONTINUE TO MONITOR.
[2017-05-18] VITALS (24 sets, daily range): BP systolic 81–132; BP diastolic 40–70
[2017-05-18] MEDS: PHENYTOIN 100 MG/4 ML UDC GT SCH ×5 (00:14→23:37)
[2017-05-18] MEDS: HYDRAGUARD CREAM TP SCH ×2 (01:43→12:58)
[2017-05-18] MEDS: Z-GUARD PASTE TP SCH ×2 (01:44→12:59)
--- NOTE | 2017-05-18 02:15 | NUR ---
FEEDING RESUMED 2 HOURS AFTER DILANTIN.
--- NOTE | 2017-05-18 04:30 | NUR ---
MORNING CARE DONE. PT TOLERATED WELL. WILL CONTINUE TO MONITOR.
[2017-05-18] MEDS: METOCLOPRAMIDE 10 MG/2 ML INJ VIAL IVP SCH ×3 (04:56→21:03)
--- NOTE | 2017-05-18 05:28 | NUR ---
DILANTIN GIVEN ORDERED. FEEDING HELD AN HOUR AGO PER ORDER.
[2017-05-18 05:51] LABS: ANION GAP 5.9 (8-16); CREATININE 0.5 mg/dL (0.6-1.3); POTASSIUM 3.9 mmol/L (3.5-5.1)
[2017-05-18 05:54] LABS: BASOPHILS # (AUTO) 0.2 K/uL (0.00-0.22); BASOPHILS % (AUTO) 2.2 % (0.0-2.0); EOSINOPHILS # (AUTO) 0.3 K/uL (0-0.4); EOSINOPHILS % (AUTO) 2.8 % (0.0-4.0); HEMATOCRIT 28.5 % (36-48); HEMOGLOBIN 9.4 g/dL (12.0-16.0); LYMPHOCYTES # (AUTO) 1.5 K/uL (2.5-16.5); LYMPHOCYTES % (AUTO) 15.9 % (20.5-51.1); MEAN CORPUSCULAR HEMOGLOBIN 30 pg (27-31); MEAN CORPUSCULAR HGB CONC 33 g/dL (33-37); MEAN CORPUSCULAR VOLUME 92 fL (80-94); MONOCYTES # (AUTO) 0.5 K/uL (0.8-1.0); NEUTROPHILS % (AUTO) 74.1 % (42.2-75.2); PLATELET COUNT (AUTO) 357 K/uL (140-450); RED BLOOD CELL COUNT(AUTO) 3.11 MIL/uL (4.20-5.40); RED CELL DISTRIBUTION WIDTH 15.5 % (11.6-13.7); WHITE BLOOD COUNT (AUTO) 9.5 K/uL (4.8-10.8)
[2017-05-18] MEDS: ALBUTEROL SULFATE/IPRATROPIU 3 ML SOL IH SCH ×3 (06:48→19:23)
[2017-05-18] MEDS: BLOOD GLUCOSE MONITORING 1 DEV DEV FS SCH ×4 (06:53→21:05)
--- NOTE | 2017-05-18 07:01 | NUR ---
RECEIVED TRACH PT ON VENT EQUIPPED WITH PORTEX 7 TRACH. VENT SETTINGS AC 16, VT 500, PEEP 5 FIO2 28% PER DR ORDERS. PT SUCTIONED OBTAINED SMALL AMOUNT OF THICK WHITE SECRETIONS,AIRWAY IS PATENT, TRACH IS SECURE. THERE IS SMALL DRAINAGE FROM STOMA SITE, NO REDNESS OR NECROSIS NOTED. PT OPENS EYES BUT DOES NOT RESPOND. VENT IS PLUGGED INTO RED OUTLET WITH ALARMS ON AND FUNCTIONING. AMBU BAG IS PRESENT AT BEDSIDE. WILL CONTINUE TO MONITOR.
--- NOTE | 2017-05-18 07:24 | NUR ---
RECEIVED REPORT FROM FOIL OPERATOR RN. PT IS NONVERBAL, UNABLE TO FOLLOW COMMANDS, OPENS EYES. PT IS TRACH TO VENT: PORTEX 7, AC MODE, FIO2 28%, RR 16, TV 500, PEEP 5. BILATERAL LUNGS CLEAR UPON AUSCULTATION. NSR ON MONITOR. CENTRAL LINE TO LEFT IJ TLC INTACT AND PATENT. G-TUBE IN PLACE, PLACEMENT CHECKED, RESIDUAL LESS THAN 5 ML, RECEIVING CONTINUOUS FEEDING AT 40 ML/HR. WEST CATH DRAINING URINE TO GRAVITY DRAINAGE BAG. CONTACT PRECAUTION MAINTAINED. BED IN LOWEST POSITION, CALL LIGHT WITHIN REACH. WILL CONTINUE TO MONITOR.
--- NOTE | 2017-05-18 07:27 | NUR ---
REPORT GIVEN TO MINOR MARTIN FOR CONTINUITY OF CARE. NO SIGNS OF DISTRESS, NO SOB NOTED AT THIS TIME.
[2017-05-18] MEDS: METHIMAZOLE 5 MG TAB GT SCH ×2 (08:36→21:03)
[2017-05-18] MEDS: LACTOBACILLUS RHAMNOSUS GG 1 EACH CAP PO SCH (08:37)
[2017-05-18] MEDS: GLYCOPYRROLATE 1 MG TAB GT SCH ×2 (08:37→21:03)
[2017-05-18] MEDS: CALCIUM CARB/VIT-D 500 MG/200 IU 1 TAB PO SCH (08:37)
[2017-05-18] MEDS: LANSOPRAZOLE 30 MG CAPDR GT SCH (08:38)
[2017-05-18] MEDS: LISINOPRIL 10 MG TAB GT SCH (08:38)
[2017-05-18] MEDS: THIAMINE 100 MG TAB GT SCH (08:38)
[2017-05-18] MEDS: LACTULOSE 20 GM/30 ML UDC GT SCH (08:39)
[2017-05-18] MEDS: ASCORBIC ACID 500 MG TAB GT SCH (08:39)
[2017-05-18] MEDS: FERROUS SULFATE 300 MG/5 ML UDC GT SCH (08:51)
--- NOTE | 2017-05-18 09:45 | NUR ---
PT PLACED ON CPAP 5 PS 12 FIO2 28% AT 0932. NIF -14, RSBI MID 60'S. VITALS REMAIN NORMAL WILL CONTINUE TO MONITOR.
--- NOTE | 2017-05-18 09:45 | NUR ---
DR. ENRIQUE CAME AND SEEN PT. UPDATES GIVEN. WILL FOLLOW UP WITH ORDERS.
--- NOTE | 2017-05-18 10:00 | NUR ---
REPOSITIONED PT. PT CURRENTLY ON CPAP AND TOLERATING WELL. NO SIGNS OF ACUTE DISTRESS AT THIS TIME. WILL CONTINUE TO MONITOR.
--- NOTE | 2017-05-18 10:30 | NUR ---
DR. REYES CAME AND SEEN PT. UPDATES GIVEN. WILL FOLLOW UP WITH NEW ORDERS.
--- NOTE | 2017-05-18 11:00 | NUR ---
FEEDING HELD FOR DILANTIN AT 1200.
--- NOTE | 2017-05-18 11:51 | NUR ---
WATER FOR INJECTION 10 ML FOR 05/17 @5385 NOT ADMINISTERED BECAUSE IT WAS GIVEN AT SALES DEVELOPER.
--- NOTE | 2017-05-18 12:08 | NUR ---
RIGHT EYE TWITCHING NOTED FOR APPROXIMATELY 50 SECONDS. LEFT A MESSAGE FOR RESIDENT PHYSICIAN DR. RAO AND MADE HIM AWARE.
[2017-05-18] MEDS: NYSTATIN/TRIAMCINOLONE CRM 15 GM TUBE TP SCH ×2 (12:23→21:05)
[2017-05-18] MEDS: FOAM DRESSING TP SCH (12:58)
--- NOTE | 2017-05-18 13:05 | NUR ---
PT HAS TWITCHING ON HER PHONG AND LIPS IT LAST ABOUT 3MINS. DR. ADAM NOTIFIED../
--- NOTE | 2017-05-18 13:14 | NUR ---
PT RETURNED TO AC 16 VT 500, PEEP AND FIO2 28% DUE TO INCREASED HR ELEVATING HIGH 140'S. NURSE AWARE. WILL CONTINUE TO MONITOR. Addendum: 05/18/17 at 1322 by Akhil Armstrong RT VT BECAME SHALLOW AND RR INCREASED
--- NOTE | 2017-05-18 13:55 | NUR ---
DR. RAO IN TO SEE PT. WILL FOLLOW UP ON ORDERS.
--- NOTE | 2017-05-18 14:18 | NUR ---
FEEDING RESUMED 2 HOURS AFTER DILANTIN.
--- NOTE | 2017-05-18 15:11 | NUR ---
RETURNED FROM CT WITH PT WITHOUT INCIDENT. PT PLACED BACK ON DOCUMENTED VENT SETTINGS. TRACH IS SECURE.
--- NOTE | 2017-05-18 15:15 | NUR ---
RETURNED FROM CT. PT TOLERATED WELL. NO SIGNS OF ACUTE DISTRESS NOTED. WILL CONTINUE TO MONITOR.
--- NOTE | 2017-05-18 16:17 | NUR ---
DR. RAO MADE AWARE OF ABNORMAL CT HEAD RESULT.
--- NOTE | 2017-05-18 17:07 | NUR ---
NO CHANGES MADE TO VENT AT THIS TIME. PT IS NOT SOB AND NOT IN RESPIRATORY DISTRESS. VENT ALARMS REMAIN ON AND FUNCTIONING. PT SUCTIONED OBTAINED SMALL AMOUNT OF THICK WHITE SECRETIONS, AIRWAY IS PATENT, TRACH SECURE.
[2017-05-18] MEDS ORDERED: OSMITROL 25% 12.5 GM/50 ML VIAL IV SCH ×2 (17:25→21:00)
--- NOTE | 2017-05-18 17:45 | NUR ---
NOT ABLE TO FIND FILTER FOR MANNITOL. SATELLITE DISH REPAIRER NOTIFIED.
--- NOTE | 2017-05-18 18:00 | NUR ---
REPOSITIONED PT. PT IS STABLE. NO SIGNS OF ACUTE DISTRESS NOTED. FLACC 0. WILL CONTINUE TO MONITOR.
--- NOTE | 2017-05-18 18:55 | NUR ---
FILTER FOR MANNITOL STILL NOT AVAILABLE. DR. SEPULVEDA MADE AWARE.
--- NOTE | 2017-05-18 19:26 | NUR ---
REPORT GIVEN TO VISUAL MERCHANDISING ASSOCIATE RN FOR CONTINUITY OF CARE. NO SOB OR ACUTE DISTRESS NOTED AT THIS TIME.
--- NOTE | 2017-05-18 19:30 | NUR ---
RECEIVED REPORT FROM AINSLEY MARTIN RN. INITIAL ASSESSMENT COMPLETED. PT IS ASLEEP AT THIS TIME. TRACH TO VENT FIO2 28% TV 500 AC 16 PEEP 5. ATTACHED TO STATION CHIEF AND PULSE OXIMETER. GT FEEDING IN PLACE, NO RESIDUAL AT THIS TIME. IV ACCESS AT LEFT IJ TLC , BLUE PORT WITH POSITIVE BLOOD RETURN, WHITE AND BROWN PORT ABLE TO FLUSH BUT WITH NO BLOOD RETURN. WEST CATH IN PLACE, SCDS IN PLACE, BED IN LOW POSITION. SAFETY MEASURE ENSURE. CONTACT ISOLATION MAINTAINED. WILL CONTINUE TO MONITOR.
[2017-05-18] MEDS: ATORVASTATIN 20 MG TAB GT SCH (21:03)
--- NOTE | 2017-05-18 23:00 | NUR ---
PT ASLEEP AT THIS TIME, NO SIGNS OF DISTRESS AT THIS TIME.
--- NOTE | 2017-05-18 23:37 | NUR ---
DILANTIN ORDERED GIVEN, FEEDING HELD AN HOUR BEFORE ADMINISTRATION.
[2017-05-19] VITALS (24 sets, daily range): BP systolic 90–119; BP diastolic 52–78
[2017-05-19] MEDS: Z-GUARD PASTE TP SCH ×2 (01:03→12:54)
[2017-05-19] MEDS: HYDRAGUARD CREAM TP SCH ×2 (01:03→12:54)
--- NOTE | 2017-05-19 01:40 | NUR ---
GT FEEDING RESUMED AT 75ML/HR. WILL CONTINUE TO MONITOR.
--- NOTE | 2017-05-19 04:35 | NUR ---
MORNING CARE DONE. PT TOLERATED WELL.
--- NOTE | 2017-05-19 05:20 | NUR ---
FEEDING HELD AN HOUR PRIOR DILANTIN ADMINISTRATION.
[2017-05-19] MEDS: PHENYTOIN 100 MG/4 ML UDC GT SCH ×3 (05:27→17:08)
[2017-05-19] MEDS: METOCLOPRAMIDE 10 MG/2 ML INJ VIAL IVP SCH ×3 (05:27→20:20)
[2017-05-19 05:57] LABS: ANION GAP 7.5 (8-16); CARBON DIOXIDE 28.2 mmol/L (21-32); CREATININE 0.6 mg/dL (0.6-1.3); POTASSIUM 3.7 mmol/L (3.5-5.1)
[2017-05-19 06:03] LABS: ALBUMIN 1.8 g/dL (3.4-5.0); ANION GAP 7.8 (8-16); CARBON DIOXIDE 27.9 mmol/L (21-32); CREATININE 0.6 mg/dL (0.6-1.3); MAGNESIUM 1.9 mg/dL (1.8-2.4); POTASSIUM 3.7 mmol/L (3.5-5.1); TOTAL BILIRUBIN 0.1 mg/dL (0.0-1.0)
[2017-05-19] MEDS: ALBUTEROL SULFATE/IPRATROPIU 3 ML SOL IH SCH ×3 (06:43→18:38)
--- NOTE | 2017-05-19 06:52 | NUR ---
RECEIVED TRACH PT ON VENT EQUIPPED WITH PORTEX 7 TRACH. VENT SETTINGS AC 16, VT 500, PEEP 5 FIO2 28% PER DR ORDERS. PT SUCTIONED OBTAINED SMALL AMOUNT OF THICK WHITE SECRETIONS,AIRWAY IS PATENT, TRACH IS SECURE. THERE IS SMALL DRAINAGE FROM STOMA SITE, ALONG WITH REDNESS, NO NECROSIS NOTED. PT OPENS EYES BUT DOES NOT RESPOND. VENT IS PLUGGED INTO RED OUTLET WITH ALARMS ON AND FUNCTIONING. AMBU BAG IS PRESENT AT BEDSIDE. WILL CONTINUE TO MONITOR.
--- NOTE | 2017-05-19 07:23 | NUR ---
RECEIVED REPORT FROM PRIVATE DUTY NURSE RN. PT IS AWAKE, OPENS EYES, NONVERBAL AND DOES NOT FOLLOW COMMANDS. PT IS TRACH TO VENT: AC 16, FIO2 28, TV 500, PEEP 5. NO SOB OR ACUTE DISTRESS NOTED. FLACC 0. NSR ON MONITOR. NO EDEMA NOTED. CENTRAL LINE TO LEFT IJ TLC PATENT AND INTACT. G-TUBE IN PLACE, RECEIVING ORDERED TUBE FEEDING AT 75 ML/HR. NO RESIDUALS. WEST CATH IN PLACE DRAINING CLEAR, YELLOW URINE. SEIZURE PRECAUTION WITH BILATERAL PADS IN PLACE. ON SCD FOR DVT PROPHYLAXIS. BED IN LOWEST POSITION AND CALL LIGHT WITHIN REACH. PT IS STABLE. WILL CONTINUE TO MONITOR.
[2017-05-19] MEDS: BLOOD GLUCOSE MONITORING 1 DEV DEV FS SCH ×4 (07:30→20:20)
--- NOTE | 2017-05-19 07:30 | NUR ---
REPORT GIVEN TO AM NURSE FOR CONTINUITY OF CARE. NO SIGNS OF DISTRESS, NO SOB NOTED.
[2017-05-19] MEDS: CALCIUM CARB/VIT-D 500 MG/200 IU 1 TAB PO SCH (08:45)
[2017-05-19] MEDS: LACTULOSE 20 GM/30 ML UDC GT SCH (08:45)
[2017-05-19] MEDS: LACTOBACILLUS RHAMNOSUS GG 1 EACH CAP PO SCH (08:46)
[2017-05-19] MEDS: FERROUS SULFATE 300 MG/5 ML UDC GT SCH (08:46)
[2017-05-19] MEDS: ASCORBIC ACID 500 MG TAB GT SCH (08:46)
[2017-05-19] MEDS: LANSOPRAZOLE 30 MG CAPDR GT SCH (08:46)
[2017-05-19] MEDS: METHIMAZOLE 5 MG TAB GT SCH ×2 (08:47→20:21)
[2017-05-19] MEDS: GLYCOPYRROLATE 1 MG TAB GT SCH ×2 (08:47→20:21)
[2017-05-19] MEDS: THIAMINE 100 MG TAB GT SCH (08:47)
[2017-05-19] MEDS: NYSTATIN/TRIAMCINOLONE CRM 15 GM TUBE TP SCH ×2 (08:48→20:22)
--- NOTE | 2017-05-19 08:55 | NUR ---
MORNING MEDS GIVEN. PT TOLERATED WELL. BP 98/58, LISINOPRIL HELD.
[2017-05-19] MEDS: LISINOPRIL 10 MG TAB GT SCH (09:00)
[2017-05-19] MEDS ORDERED: FOAM DRESSING TP SCH (09:00)
[2017-05-19] MEDS ORDERED: LACTOBACILLUS RHAMNOSUS GG 1 EACH CAP GT SCH (09:00)
--- NOTE | 2017-05-19 09:07 | NUR ---
PT PLACED ON CPAP 5 PS 12 FIO2 28%. WILL CONTINUE TO MONITOR.
--- NOTE | 2017-05-19 09:10 | NUR ---
PT IS ON CPAP 5 PS 12 FIO2 28%. TOLERATING WELL. NO SOB OR OTHER SIGNS OF ACUTE DISTRESS NOTED. WILL CONTINUE TO MONITOR.
--- NOTE | 2017-05-19 09:45 | NUR ---
DR. SPANGLER IN TO SEE PT. WILL FOLLOW UP ON ORDERS.
--- NOTE | 2017-05-19 10:50 | NUR ---
DR. HOLLAND AND RESIDENT GROUP IN TO SEE PT. WILL FOLLOW UP ON ORDERS.
--- NOTE | 2017-05-19 11:09 | NUR ---
PS TITRATED TO 10. VENT SETTINGS NOW CPAP 5 PS 10. WILL CONTINUE TO MONITOR.
[2017-05-19] MEDS ORDERED: OSMITROL 25% 12.5 GM/50 ML VIAL IV SCH (11:45)
[2017-05-19] MEDS ORDERED: DEXAMETHASONE 4 MG/ML VIAL IM SCH (11:45)
--- NOTE | 2017-05-19 12:00 | NUR ---
REPOSITIONED PT. PERFORMED ORAL CARE. PT IS STILL ON CPAP. TOLERATING WELL. NO SIGNS OF ACUTE DISTRESS AT THIS TIME. WILL CONTINUE TO MONITOR.
[2017-05-19] MEDS: FOAM DRESSING TP SCH (12:53)
--- NOTE | 2017-05-19 13:10 | NUR ---
DR. ENRIQUE IN TO SEE AND EXAMINE PT. WILL FOLLOW UP WITH NEW ORDERS.
--- NOTE | 2017-05-19 13:50 | NUR ---
DR. MAHER INFORM REGARDING PT CONSULTATION. HE WOULD LIKE TO TALK TO , DR. ELLIOTT NOTRIFIED.
--- NOTE | 2017-05-19 14:30 | NUR ---
DR. OBREGON IN TO SEE PT. WILL FOLLOW UP ON ORDERS.
--- NOTE | 2017-05-19 15:33 | NUR ---
PT BECOMING TACHYPNEIC, RR LOW TO MID 30'S. PT RETURNED TO AC 16, VT 500, PEEP 5 AND FIO2 28%. WILL CONTINUE TO MONITOR.
--- NOTE | 2017-05-19 17:00 | NUR ---
PT IS RESTING COMFORTABLY. NO S/SX OF ACUTE DISTRESS NOTED AT THIS TIME. SAFETY MEASURES ENSURE. WILL CONTINUE TO MONITOR.
--- NOTE | 2017-05-19 18:49 | NUR ---
RETURNED FROM CT. PT TOLERATED WELL. PT IS IN STABLE CONDITION. WILL CONTINUE TO MONITOR.
--- NOTE | 2017-05-19 18:50 | NUR ---
Resident Frank called regarding order to tx pt to higher level of care regarding bleeding in the brain. Asked the resident if there is MD to accept pt so I can make call to ask for bed. Resident stated that pt needs to be transferred because of the bleeding in the brain. Told the resident that pt may be transferred tomorrow because I have to ask the CM, and told that I am going to ask the ICU nurse about this tx
--- NOTE | 2017-05-19 18:51 | NUR ---
Texted Ryanne GRAY regarding tx order. Ryanne stated that she will call the resident
--- NOTE | 2017-05-19 19:29 | NUR ---
REPORT GIVEN TO HIDE PULLER RN. PT IS IN STABLE CONDITION. NO SIGNS OF ACUTE DISTRESS AT THIS TIME.
--- NOTE | 2017-05-19 19:30 | NUR ---
RECEIVED REPORT FROM TORITO RN AT BEDSIDE, PT IS OPEN EYES, NON VERBAL, UNABLE TO FOLLOW COMMANDS, ONLY RESPOND TO PAINFUL STIMULI, RIGHT SIDE OF HEAD WITH DEFORMITY NOTED. CENTRAL LING TO LEFT IJ WITH TLC, PATENT TO EACH LUMEN, TKO WITH NS. TRACH TO VENT WITH SETTING FIO2 28, RR 16, TV 500, PEEP 5, NO S/SX OF RESPIRATORY DISTRESS, CLEAR LUNG SOUNDS. SR ON CEMENTER. SOFT ABDOMEN WITH ACTIVE BOWEL SOUNDS, GT TO TUBE FEEDING WITH DIABETICSOURCE AT 75ML/HR, 0ML RESIDUE AT THIS TIME, WEST CATHETER IN PLACE WITH CLEAR YELLOW URINE IN BAG, BEDBOUND, SCD'S ON BLE FOR PREVENTION, SKIN WARM AND DRY TO TOUCH, OPEN WOUND PRESENT (SEE WOUND ASSESSMENT), SAFETY PRECAUTION AND SEIZURE PRECAUTION MAINTAINED, VSS, FLACC 0, WILL CONTINUE TO MONITOR.
--- NOTE | 2017-05-19 20:00 | NUR ---
POSITION CHANGED FOR OFF LOAD PRESSURE, ORAL CARE PROVIDED.
[2017-05-19] MEDS: ATORVASTATIN 20 MG TAB GT SCH (20:21)
--- NOTE | 2017-05-19 21:00 | NUR ---
ACCU CHECK PERFORMED WITH RESULT 107MG/DL, NO INSULIN NEEDED AT THIS TIME, SCHEDULED MEDICATION GIVEN VIA GT, PT TOLERATED WELL.
--- NOTE | 2017-05-19 22:00 | NUR ---
NO CHANGE OF CONDITION AT THIS TIME, VSS, POSITION CHANGED FOR OFF LOAD PRESSURE.
--- NOTE | 2017-05-19 23:06 | NUR ---
Called Faye Aden try to ask for ICU bed transferred [phone], says that the office is closed and to call back in am per recorder
--- NOTE | 2017-05-19 23:08 | NUR ---
Called [facility] [phone] and talk to the field radio operator to tx phone call to HS; gave the tx center [phone] Shukri. He is on break at this time. Will call Shukri [facility] back
[2017-05-20] VITALS (24 sets, daily range): BP systolic 84–119; BP diastolic 45–76
--- NOTE | 2017-05-20 | NUR ---
NO S/S OF DISTRESS, VSS, ORAL CARE PROVIDED, SUCTION PROVIDED, POSITION CHANGED FOR OFF LOAD PRESSURE.
[2017-05-20] MEDS: PHENYTOIN 100 MG/4 ML UDC GT SCH ×5 (00:16→23:57)
--- NOTE | 2017-05-20 00:40 | NUR ---
Called [facility] [phone] and spoke to Shukri. He wants to fax documents to [phone]: Facesheet H&P Imaging Result Consults Most recent Labs And tomorrow he wants CM to follow up with him
[2017-05-20] MEDS: HYDRAGUARD CREAM TP SCH ×2 (01:00→12:40)
[2017-05-20] MEDS: Z-GUARD PASTE TP SCH ×2 (01:00→12:40)
--- NOTE | 2017-05-20 01:05 | NUR ---
Faxed all requested documents to Shukri ([phone]): Facesheet H&P Imaging Result Consults Most recent Labs
--- NOTE | 2017-05-20 01:40 | NUR ---
Called [facility] [phone] and spoke with Shukri. He stated that CM to follow up with him again in am
--- NOTE | 2017-05-20 02:00 | NUR ---
NO CHANGE OF CONDITION AT THIS TIME, VSS, POSITION CHANGED FOR OFF LOAD PRESSURE.
--- NOTE | 2017-05-20 04:00 | NUR ---
VSS, NO S/S OF DISTRESS, AM CARE PROVIDED, WEST CATHETER CARE PROVIDED, ORAL CARE PROVIDED, POSITION CHANGED FOR OFF LOAD PRESSURE.
[2017-05-20] MEDS: METOCLOPRAMIDE 10 MG/2 ML INJ VIAL IVP SCH ×3 (05:30→20:17)
[2017-05-20 05:51] LABS: BASOPHILS # (AUTO) 0.2 K/uL (0.00-0.22); BASOPHILS % (AUTO) 1.6 % (0.0-2.0); EOSINOPHILS # (AUTO) 0.3 K/uL (0-0.4); EOSINOPHILS % (AUTO) 3.1 % (0.0-4.0); HEMATOCRIT 28.5 % (36-48); HEMOGLOBIN 9.3 g/dL (12.0-16.0); LYMPHOCYTES # (AUTO) 2.8 K/uL (2.5-16.5); LYMPHOCYTES % (AUTO) 28.9 % (20.5-51.1); MEAN CORPUSCULAR HEMOGLOBIN 30 pg (27-31); MEAN CORPUSCULAR HGB CONC 33 g/dL (33-37); MEAN CORPUSCULAR VOLUME 94 fL (80-94); MONOCYTES # (AUTO) 0.6 K/uL (0.8-1.0); MONOCYTES % (AUTO) 6.7 % (1.7-9.3); NEUTROPHILS # (AUTO) 5.7 K/uL (1.8-7.7); NEUTROPHILS % (AUTO) 59.7 % (42.2-75.2); PLATELET COUNT (AUTO) 414 K/uL (140-450); RED BLOOD CELL COUNT(AUTO) 3.04 MIL/uL (4.20-5.40); RED CELL DISTRIBUTION WIDTH 15.8 % (11.6-13.7); WHITE BLOOD COUNT (AUTO) 9.6 K/uL (4.8-10.8)
[2017-05-20 06:01] LABS: ANION GAP 5.3 (8-16); CARBON DIOXIDE 31.7 mmol/L (21-32); CREATININE 0.7 mg/dL (0.6-1.3)
--- NOTE | 2017-05-20 06:01 | NUR ---
DR. KATELYN SMITH (RESIDENT) CAME TO THE UNIT, UPDATES GIVEN REGARDING INITIATION OF PATIENT'S TRANSFER TO HIGHER LEVEL OF CARE, INFORMED HIM THAT PHYTOPATHOLOGY TEACHER ANGELA CALLED [facility] [place]AP[place] THEM BUT PATIENT IS NOT ACCEPTED YET, SHEEP FARM WORKER FROM [facility] [place] NEEDS TO SPEAK WITH OUR HOSPITAL CASE MANAGEMENT. INFORMED DR. SMITH ALSO THAT FAMILY HAS NOT BEEN NOTIFIED REGARDING PLAN OF CARE TO TRANSFER PATIENT AND WAS ASKED IF HE CAN CALL THE FAMILY TODAY AND EXPLAINED TO THEM , DR. SMITH SAID THAT HE WILL DO IT.
[2017-05-20 06:05] LABS: MAGNESIUM 1.9 mg/dL (1.8-2.4); PHOSPHORUS 2.8 mg/dL (2.5-4.9)
[2017-05-20] MEDS: BLOOD GLUCOSE MONITORING 1 DEV DEV FS SCH ×4 (06:49→20:32)
[2017-05-20] MEDS: ALBUTEROL SULFATE/IPRATROPIU 3 ML SOL IH SCH ×3 (06:55→18:51)
--- NOTE | 2017-05-20 06:56 | NUR ---
RECEIVED ON A Bypass MobileSCAPE R860 VENTILATOR PLUGGED INTO RED OUTLET TOLERATING WELL WITHOUT ADVERSE REACTIONS NOTED TO A PORTEX DCT #7 AIRWAY SECURED WITH A CAITLIN TRACH TIE CUFF PRESSURE CHECKED NOTED AMBU BAG NOTED AT HOB LOC ASLEEP RESTING COMFORTABLY BREATH SOUNDS RHONCHI BILATERAL WITH GOOD CHEST RISE DEEP TRACHEAL SUCTION FOR MODERATE THIN PALE YELLOW SECRETIONS AIRWAY PATENT
--- NOTE | 2017-05-20 07:17 | NUR ---
REPORT GIVEN TO BLAYNE RN AT BEDSIDE FOR CONTINUE OF CARE, PT IS IN STABLE CONDITION AT THIS TIME.
--- NOTE | 2017-05-20 07:20 | NUR ---
RECEIVED A REPORT FROM CARTER MATTHEW RN. PT CLOSED EYES AND NONVERBAL, UNABLE TO FOLLOW COMMANDS. FLACC 0.TRACH TO VENT AND SETTING AT FiO2 28, TV 500 , AC 16, PEEP 5. SR ON THE MONITOR. G-TUBE IN PLACE AND DIABETIC SOURCE FEEDING RUNNING AT 75ML/HR. WEST CATHETER DRAINING CLEAR YELLOW URINE. NO EDEMA NOTED. ON SCD FOR VTE PROPHYLAXIS. IV SITE ON LT IJ [id number]. SAFETY PRECAUTION, BED IN LOW POSITION, CALL LIGHT WITHIN REACH. WILL CONTINUE TO MONITOR.
[2017-05-20] MEDS: LACTULOSE 20 GM/30 ML UDC GT SCH (08:09)
[2017-05-20] MEDS: CALCIUM CARB/VIT-D 500 MG/200 IU 1 TAB PO SCH (08:09)
[2017-05-20] MEDS: FERROUS SULFATE 300 MG/5 ML UDC GT SCH (08:09)
[2017-05-20] MEDS: ASCORBIC ACID 500 MG TAB GT SCH (08:09)
[2017-05-20] MEDS: METHIMAZOLE 5 MG TAB GT SCH ×2 (08:10→20:17)
[2017-05-20] MEDS: LANSOPRAZOLE 30 MG CAPDR GT SCH (08:10)
[2017-05-20] MEDS: THIAMINE 100 MG TAB GT SCH (08:10)
[2017-05-20] MEDS: GLYCOPYRROLATE 1 MG TAB GT SCH ×2 (08:10→20:16)
[2017-05-20] MEDS: LACTOBACILLUS RHAMNOSUS GG 1 EACH CAP PO SCH (08:10)
[2017-05-20] MEDS: NYSTATIN/TRIAMCINOLONE CRM 15 GM TUBE TP SCH ×2 (08:11→21:24)
[2017-05-20] MEDS: LISINOPRIL 10 MG TAB GT SCH (08:11)
--- NOTE | 2017-05-20 08:25 | NUR ---
DR. GAY IN TO SEE PT. WILL FOLLOW UP ON ORDERS.
--- NOTE | 2017-05-20 08:32 | NUR ---
HOLD ZESTRIL DUE TO LOW BP AND PT TOLERATED OTHER MEDICATIONS WELL.
--- NOTE | 2017-05-20 09:39 | NUR ---
ASLEEP RESTING WELL CHANGED MODE TO CPAP FOR DAILY WEANING ORDERED GOOD CHEST RISE
--- NOTE | 2017-05-20 09:50 | NUR ---
PT PLACED ON CPAP 5, PS10, FiO2 28% BY RT. WILL CONTINUE TO MONITOR.
--- NOTE | 2017-05-20 10:42 | NUR ---
CM NOTE FAXED PATIENT INFORMATION PACKED TO [facility] / FAX# [phone]
--- NOTE | 2017-05-20 11:16 | NUR ---
05/20/17 RD FOLLOW-UP ASSESSMENT COMPLETED PLEASE REFER TO NUTRITION ASSESSMENT UNDER CARE ACTIVITY FOR ESTIMATED NUTRITIONAL NEEDS. 1. CHANGE ENTERAL NUTRITION SUPPORT REGIMEN - DIABETISOURCE AC AT 120 ML/HR X12H + 120 ML FWF Q4H + PROSOURCE 3X/DAILY. 2. RD TO FOLLOW-UP 2-3 DAYS, HIGH RISK MONICA JARRETT, RD
--- NOTE | 2017-05-20 11:18 | NUR ---
AWAKE TOLERATING VENTILATORY SUPPORT WELL WITHOUT INCIDENT GOOD CHEST RISE
--- NOTE | 2017-05-20 12:10 | NUR ---
PT STABLE AND NO S/SX OF RESPIRATORY DISTRESS WITH CPAP MODE. PT TOLERATED MEDICATIONS WELL. WILL CONTINUE TO MONITOR.
--- NOTE | 2017-05-20 12:30 | NUR ---
PAGED DR. SMITH REGARDING RD RECOMMENDATION AND AWAITING FOR CALLBACK.
--- NOTE | 2017-05-20 12:35 | NUR ---
DR. SMITH CALLED BACK AND WAS INFORMED OF RD RECOMMENDATION. WILL FOLLOW UP ON ORDERS.
[2017-05-20] MEDS: FOAM DRESSING TP SCH (12:40)
--- NOTE | 2017-05-20 13:42 | NUR ---
AWAKE TOLERATING WEANING WITHOUT ADVERSE [id number] NOTED BREATH SOUNDS CLEAR LEFT SIDE TO DIFFUSED RALES AT RIGHT SIDE GOOD CHEST RISE DEEP TRACHEAL SUCTION FOR MODERATE PALE YELLOW SECRETIONS AIRWAY PATENT
--- NOTE | 2017-05-20 14:30 | NUR ---
NO S/SX OF ACUTE RESPIRATORY DISTRESS AND FLACC 0. PT STABLE AND ABLE TO FOLLOW SIMPLE COMMANDS. WILL FOLLOW UP ON ORDERS.
--- NOTE | 2017-05-20 15:15 | NUR ---
CM NOTE SPOKE W/ VICKI FROM [facility]. CONCERNED ABOUT IF [facility] WILL BE WILLING TO TAKE PATIENT BACK. WILL BE FAXING OVER AGREEMENT PAPERWORK FOR [facility].
--- NOTE | 2017-05-20 15:31 | NUR ---
CHECKED RESIDUAL AMOUNT OF G-TUBE FEEDING AND 30ML NOTED. WILL CONTINUE TO MONITOR.
--- NOTE | 2017-05-20 15:46 | NUR ---
AWAKE NO EVIDENCE OF PULMONARY DISTRESS NOTED TOLERATING WEANING WITHOUT INCIDENT BREATH SOUNDS CLEAR LEFT SIDE TO RALES AT RIGHT SIDE GOOD CHEST RISE DEEP TRACHEAL SUCTION FOR MODERATE THIN PALE YELLOW SECRETIONS AIRWAY PATENT
[2017-05-20] MEDS ORDERED: OSMITROL 25% 12.5 GM/50 ML VIAL IV SCH (17:25)
--- NOTE | 2017-05-20 17:50 | NUR ---
DR. MERINO AND DR. ROBLES IN TO SEE PT. WILL FOLLOW UP ON ORDERS
--- NOTE | 2017-05-20 18:10 | NUR ---
PT IS BACK ON AC VENT SETTING AT FiO2 28, TV 500, AC 12, PEEP 5 BY RT. WILL CONTINUE TO MONITOR.
--- NOTE | 2017-05-20 18:42 | NUR ---
PT TOLERATED MEDICATIONS WELL AND NO RESIDUAL NOTED.
--- NOTE | 2017-05-20 19:12 | NUR ---
ARRIVED AT BEDSIDE AND ALARM WAS IN BACKUP VENTILATION. SWITCH BACK TO AC FOR TONIGHT, BS COURSE, SUCTIONED, SAO2-98% RR 12HR 70BPM. NO SIGN OF DISTRESS NOTED
--- NOTE | 2017-05-20 19:20 | NUR ---
REPORT RECEIVED FROM CAMI CISNEROS RN. PT IS AWAKE BUT EYES NON-PURPOSEFUL. NONVERBAL AND UNABLE TO FOLLOW COMMANDS. TRACH TO VENT AC, FIO2-28, TV-500, R-12, AND PEEP-5. G-TUBE IN PLACE AND PATENT. G-TUBE DRESSING INTACT AND CLEAN. NO S/SX OF INFECTION TO THE G-TUBE SITE. NO RESIDUAL NOTED. FEEDING AT HOLD AT THIS TIME DUE TO DILANTIN GIVEN AT 1800. WILL RESUME G-TUBE FEEDING AT 1999. LEFT IJ CENTRAL LINE WITH TRIPLE LUMEN. ALL LINES PATENT AND ASYMPTOMATIC. CENTRAL LINE DRESSING INTACT AND CLEAN. BILATERAL LUNGS SOUND CLEAR. BOWEL SOUNDS HEARD FROM ALL 4 QUADS. DRESSING INTACT AND CLEAN TO THE SACRAL AREA. BILATERAL SCD NOTED AND FUNCTIONING. WEST CATHETER DRAINING VIA GRAVITY CLOSED SYSTEM WITH YELLOW URINE. CALL LIGHT IN REACH AND BED IS TO THE LOWEST POSITION. WILL CONTINUE TO MONITOR. Addendum: 05/20/17 at 2040 by Joleen Molina RN BILATERAL PADDED S/R UP FOR SEIZURE PRECAUTION.
--- NOTE | 2017-05-20 19:23 | NUR ---
REPORT GIVEN TO MARCELO OLIVERA RN. PT STABLE.
--- NOTE | 2017-05-20 20:00 | NUR ---
NO G-TUBE RESIDUAL NOTED. G-TUBE FEEDING RESUMED ORDERED AT THIS TIME. HOB ELEVATED 30 DEGREES. PT TOLERATING WELL.
[2017-05-20] MEDS: ATORVASTATIN 20 MG TAB GT SCH (20:16)
--- NOTE | 2017-05-20 20:43 | NUR ---
MEDICATIONS ADMINISTERED ORDERED. PT TOLERATED WELL. ALL SAFETY PRECAUTIONS ARE IN PLACE. NO ACUTE DISTRESS NOTED. WILL CONTINUE TO MONITOR.
--- NOTE | 2017-05-20 20:50 | NUR ---
DR. SPANGLER AT BED SIDE. UPDATED PT'S CONDITION. WILL FOLLOW UP WITH ANY ORDERS.
--- NOTE | 2017-05-20 21:27 | NUR ---
LALITHA FROM [facility] CALLED TO SEE IF THE PT STILL NEEDS TRANSFER FOR HIGHER LEVEL OF CARE. UPDATED LALITHA ABOUT PT'S CONDITION THAT NEEDS HIGHER LEVEL OF CARE WITH NEURO-SURGEON AND HE SAID HE WILL KNOW MORE IF THEY CAN ACCEPT THE PT TOMORROW.
--- NOTE | 2017-05-20 23:00 | NUR ---
G-TUBE FEEDING IS STOPPED AT THIS TIME DUE TO THE DILANTIN ADMINISTRATION SCHEDULED @0000. PT W/ NO ACUTE DISTRESS. FLACC=0. ALL SAFETY PRECAUTIONS ARE IN PLACE. WILL CONTINUE TO MONITOR.
[2017-05-21] VITALS (23 sets, daily range): BP systolic 88–126; BP diastolic 48–67
[2017-05-21] MEDS: HYDRAGUARD CREAM TP SCH ×2 (00:02→12:23)
[2017-05-21] MEDS: Z-GUARD PASTE TP SCH ×2 (00:03→12:24)
--- NOTE | 2017-05-21 02:00 | NUR ---
G-TUBE FEEDING WAS RESUMED. RESIDUAL 10ML NOTED. PT W/ NO ACUTE DISTRESS AT THIS TIME. ALL SAFETY PRECAUTIONS ARE IN PLACE. WILL CONTINUE TO MONITOR.
--- NOTE | 2017-05-21 04:19 | NUR ---
PT EYES CLOSED. NO ACUTE DISTRESS NOTED. ALL SAFETY PRECAUTIONS ARE IN PLACE. WILL CONTINUE TO MONITOR.
[2017-05-21] MEDS: METOCLOPRAMIDE 10 MG/2 ML INJ VIAL IVP SCH ×3 (04:29→20:28)
--- NOTE | 2017-05-21 05:00 | NUR ---
G-TUBE FEEDING IS STOPPED AT THIS TIME DUE TO THE DILANTIN ADMINISTRATION SCHEDULED @0600. PT W/ NO ACUTE DISTRESS AT THIS TIME. FLACC=0. AM CARE PROVIDED. TOLERATED WELL. ALL SAFETY PRECAUTIONS ARE IN PLACE. WILL CONTINUE TO MONITOR.
[2017-05-21 05:08] LABS: ANION GAP 8.3 (8-16); CREATININE 0.7 mg/dL (0.6-1.3); POTASSIUM 4.3 mmol/L (3.5-5.1)
[2017-05-21 05:13] LABS: BASOPHILS # (AUTO) 0.3 K/uL (0.00-0.22); BASOPHILS % (AUTO) 3.6 % (0.0-2.0); EOSINOPHILS # (AUTO) 0.3 K/uL (0-0.4); EOSINOPHILS % (AUTO) 4.1 % (0.0-4.0); HEMOGLOBIN 10.3 g/dL (12.0-16.0); LYMPHOCYTES # (AUTO) 2.3 K/uL (2.5-16.5); MEAN CORPUSCULAR HEMOGLOBIN 30 pg (27-31); MEAN CORPUSCULAR HGB CONC 32 g/dL (33-37); MEAN CORPUSCULAR VOLUME 94 fL (80-94); MONOCYTES # (AUTO) 0.5 K/uL (0.8-1.0); MONOCYTES % (AUTO) 6.3 % (1.7-9.3); NEUTROPHILS # (AUTO) 4.9 K/uL (1.8-7.7); PLATELET COUNT (AUTO) 409 K/uL (140-450); RED CELL DISTRIBUTION WIDTH 15.9 % (11.6-13.7); WHITE BLOOD COUNT (AUTO) 8.3 K/uL (4.8-10.8)
--- NOTE | 2017-05-21 05:50 | NUR ---
DR. SMITH AT BED SIDE. UPDATED HIM WITH PT'S CONDITION.
[2017-05-21] MEDS: PHENYTOIN 100 MG/4 ML UDC GT SCH ×4 (05:52→23:47)
[2017-05-21] MEDS: ALBUTEROL SULFATE/IPRATROPIU 3 ML SOL IH SCH ×3 (06:48→19:13)
--- NOTE | 2017-05-21 06:49 | NUR ---
RECEIVED PT ON CARESCAPE ON A/C 12 VT 500 PEEP5 FIO2 28 ALARMS ARE ON AND FUNCTIONAL BMV HOB PTS TRACH PORTEX 7 IS SECURE PT IN HF ASLEEP BS COARSE I\L LAVAGE AND SX LG YELLOW CUFF PRESSURE 26 CM HHN GIVEN I\L WITH 3 MG DUONEB VENT PLUGGED INTO RED OUTLET NO APPARENT DISTRESS Addendum: 05/21/17 at 1506 by Jackelin Gunderson RT CORRECT RR IS 16
--- NOTE | 2017-05-21 07:08 | NUR ---
REPORT GIVEN TO CAMI CISNEROS RN. VS STABLE AND NO ACUTE DISTRESS NOTED AT THIS TIME.
--- NOTE | 2017-05-21 07:10 | NUR ---
RECEIVED A REPORT FROM MARCELO OLIVERA RN. PT OPENS EYES, NONVERBAL AND ABLE TO FOLLOW SIMPLE COMMANDS AT TIMES. FLACC 0 AND NO S/SX OF ACUTE RESPIRATORY DISTRESS NOTED. TRACH TO VENT AND SETTING AT FiO2 28, TV 500, AC 12, PEEP 5. SR ON THE MONITOR. G-TUBE IN PLACE AND HOLD ON TUBE FEEDING AFTER DILANTIN DOSE GIVEN ORDERED. WEST CATHETER DRAINING CLEAR YELLOW URINE. NO EDEMA PRESENT. IV SITE ON LT IJ [id number], PATENT AND INTACT. SAFETY PRECAUTION, BED IN LOW POSITION, CALL LIGHT WITHIN REACH. WILL CONTINUE TO MONITOR.
[2017-05-21] MEDS: BLOOD GLUCOSE MONITORING 1 DEV DEV FS SCH ×4 (07:17→23:47)
[2017-05-21] MEDS: LACTOBACILLUS RHAMNOSUS GG 1 EACH CAP PO SCH (08:13)
[2017-05-21] MEDS: LANSOPRAZOLE 30 MG CAPDR GT SCH (08:13)
[2017-05-21] MEDS: THIAMINE 100 MG TAB GT SCH (08:13)
[2017-05-21] MEDS: CALCIUM CARB/VIT-D 500 MG/200 IU 1 TAB PO SCH (08:13)
[2017-05-21] MEDS: FERROUS SULFATE 300 MG/5 ML UDC GT SCH (08:13)
[2017-05-21] MEDS: LACTULOSE 20 GM/30 ML UDC GT SCH (08:13)
[2017-05-21] MEDS: ASCORBIC ACID 500 MG TAB GT SCH (08:13)
[2017-05-21] MEDS: METHIMAZOLE 5 MG TAB GT SCH ×2 (08:14→20:28)
[2017-05-21] MEDS: LISINOPRIL 10 MG TAB GT SCH (08:14)
[2017-05-21] MEDS: GLYCOPYRROLATE 1 MG TAB GT SCH ×2 (08:14→20:28)
[2017-05-21] MEDS: NYSTATIN/TRIAMCINOLONE CRM 15 GM TUBE TP SCH ×2 (08:14→20:29)
--- NOTE | 2017-05-21 08:22 | NUR ---
VENT CHECK DONE, CHANGED PATIENT TO CPAP 5 PS 10 28% CLEAR BREATH SOUNDS. SUCTIONED LARGE YELLOW SECRETIONS. RSBI 72. PATIENT TOLERATING WELL.
--- NOTE | 2017-05-21 08:30 | NUR ---
HOLD LISINOPRIL DUE TO SYSTOLIC BP 100-120 AND PT TOLERATED OTHER MEDICATIONS WELL. PT PLACED ON CPAP 5, PS 10, FiO2 28% BY RT AND NO S/SX OF RESPIRATORY DISTRESS NOTED. WILL CONTINUE TO MONITOR.
[2017-05-21] MEDS ORDERED: BISACODYL 10 MG SUPP RC PRN (09:05)
--- NOTE | 2017-05-21 09:48 | NUR ---
DR. ENRIQUE IN TO SEE PT. WILL FOLLOW UP ON ORDERS.
--- NOTE | 2017-05-21 10:00 | NUR ---
WOUND CARE NURSE AT BEDSIDE FOR EVALUATION OF THE WOUNDS. PICTURES TAKEN AND PLACED IN THE CHART.
--- NOTE | 2017-05-21 10:10 | NUR ---
WOUND CARE RE-EVALUATION NOTE: PT MEDICAL CONDITION IS STABLE FOR ASSESSMENT 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, SCALP SKIN INTACT TRACHEOSTOMY STOMA SITE CLEAN AND SURROUNDING SKIN INTACT MULTIPLE ECCHYMOSIS TO FRONT CHEST AREA HAS DIMINISHED BILATERAL BREAST FOLDS INTERTRIGINOUS DERMATITIS IMPROVING LUQ AND GT STOMA SITE CLEAN AND SURROUNDING SKIN INTACT, MID ABDOMEN HERNIA SACRALCOCCYX STAGE II PRESSURE ULCER RE-EPITHELIUM TISSUE NOTICE 0.5X0.5CM , AREA DRY AND CLEAN BILATERAL HEELS BLANCHABLE REDNESS RECOMMENDATIONS: -CLEANSE BILATERAL BREAST FOLDS WITH SOAP AND WATER,PAT DRY APPLY ANTIFUNGAL CREAM BID -CLEANSE SACRALCOCCYX WITH NS, PAT DRY, APPLY Z GUARD COVER WITH OPTIC FORM BID AND PRN IF SOILING -TURN AND REPOSITION PATIENT Q2H TO LEFT AND RIGHT SIDE ONLY TO OFFLOAD SACRALCOCCYX -ASSESS AND MONITOR SKIN CONDITION DURING POSITION CHANGE, PLEASE PAY ATTENTION TO SACRALCOCCYX AND HEELS -OFFLOAD BILATERAL HEELS BY PLACING PILLOWS UNDER CALVES AT ALL TIMES, UNLESS OTHERWISE CONTRAINDICATED -PRESSURE REDISTRIBUTION SURFACE THERAPY -KEEP SKIN CLEAN AND DRY AT ALL TIMES. -CONTINUE TO FOLLOW RD RECOMMENDATION RECOMMENDATIONS DISCUSSED WITH PRIMARY RN WILL FOLLOW UP PATIENT Q 7 -10 DAYS AND PRN. PLEASE CONTACT WOUND CARE NURSE FOR ANY CONCERNS AND CHANGES IN WOUND CONDITION
--- NOTE | 2017-05-21 10:18 | NUR ---
PT STABLE AND NO S/SX OF ACUTE RESPIRATORY DISTRESS. CONTINUE ON CPAP MODE. FLACC 0 NOTED. WILL CONTINUE TO MONITOR.
--- NOTE | 2017-05-21 10:38 | NUR ---
CALLED [facility] [place] SPOKE WITH DAVINA, . HE REQUESTED DR. RASHEL JACKSON, WHICH I GAVE HIM. I CALLED [facility] AND SPOKE WITH ZAFAR [phone]. NO BEDS YET. Addendum: 05/21/17 at 1042 by Kellen Bai [facility]
--- NOTE | 2017-05-21 11:14 | NUR ---
VENT CHECK DONE, BS CLEAR, JOSE CPAP WELL RR24, SAT97, HR74, TRACH SECURE; NO DISTRESS NOTED AT THIS TIME
[2017-05-21] MEDS: FOAM DRESSING TP SCH (12:23)
--- NOTE | 2017-05-21 12:27 | NUR ---
PT TOLERATED MEDICATIONS WELL. WILL CONTINUE TO MONITOR.
--- NOTE | 2017-05-21 12:29 | NUR ---
DR. SPANGLER IN TO SEE PT. WILL FOLLOW UP ON ORDERS.
--- NOTE | 2017-05-21 13:48 | NUR ---
DR. MERINO IN TO SEE PT AND WILL FOLLOW UP ON ORDERS.
--- NOTE | 2017-05-21 14:05 | NUR ---
CALLED DAVINA FROM [facility]. THEIR PHYSICIAN TRIED TO CALL DR. KISER, WAITING FOR CALL BACK. I CALLED [facility] AND SPOKE WITH VICKI. NO BED YET. I GAVE HIM THE NUMBER TO THE FLOOR IF A BED BECOMES AVAILABLE.
--- NOTE | 2017-05-21 14:36 | NUR ---
CHANGE PT TO A/C RR 16 WITH PREVIOUS SETTINGS DUE TO BP ABG TO FOLLOW
--- NOTE | 2017-05-21 14:40 | NUR ---
PT PLACED ON AC MODE SETTING AT FiO2 28, TV 500, AC 16, PEEP 5 BY RT. NO S/SX OF RESPIRATORY DISTRESS NOTED. WILL CONTINUE TO MONITOR.
--- NOTE | 2017-05-21 16:14 | NUR ---
CALLED [facility] [place] AND SPOKE WITH MARCELO. SHE SAID THEY ARE STILL WAITING TO HEAR FROM DR. KISER. I CALLED DR. KISER AND ASKED HIM TO CALL THE TRANSFER CENTER AT [facility] [place], . I CALLED VICKI FROM [facility], NO BEDS.
--- NOTE | 2017-05-21 16:20 | NUR ---
PT AWAKES AND SOMETIMES ABLE TO FOLLOW SIMPLE COMMANDS. PT STABLE AND FLACC 0. WILL CONTINUE TO MONITOR.
--- NOTE | 2017-05-21 16:49 | NUR ---
VENT CHECK BS COARSE I\L LAVAGE AND SX MOD YELLOW PT ASLEEP
--- NOTE | 2017-05-21 18:12 | NUR ---
PT STABLE AND NO S/SX OF RESPIRATORY DISTRESS NOTED. WILL CONTINUE TO MONITOR.
--- NOTE | 2017-05-21 18:34 | NUR ---
DR. MERINO CALLED AND WAS UPDATED OF ABG RESULT WITH PT'S CURRENT STATUS, STILL WAITING FOR CALLBACK FROM [facility] [place] FOR TRANSFER PT. WILL FOLLOW UP ON ORDERS.
--- NOTE | 2017-05-21 18:58 | NUR ---
REPORT GIVEN AND ENDORSED CARE TO SAMIRA ALMENDAREZ RN. PT STABLE
--- NOTE | 2017-05-21 19:15 | NUR ---
assumed care of pt.initial assessment completed.pt opens eyes but not following commands.sr on monitor.trach to vent.fio2 28% tv500 ac16 peep 5.with tlc to lt ij intact. able to flush ports easily but no blood return noted to all 3 ports.with gtube intact.no residual.still clamped at this time as ordered;dilantin given earlier.will resume at 1999.w/jauregui catheter to bsd.draining small amt of yellow urine.sacral with old scar. see wound assessment.flacc 0
--- NOTE | 2017-05-21 20:00 | NUR ---
gtube feeding diabetisource restarted.no residuals noted.
[2017-05-21] MEDS: ATORVASTATIN 20 MG TAB GT SCH (20:27)
--- NOTE | 2017-05-21 20:27 | NUR ---
oral care using vap kit rendered.pt on daily prevacid for gi prophylaxis and scd to ble for dvt prophylaxis.suctioned moderate amt of whitish secretions.repositioned
--- NOTE | 2017-05-21 22:00 | NUR ---
pts condition remains unchanged.still awake.secretions suctioned as needed.flacc 0.repositioned.
[2017-05-22] VITALS (24 sets, daily range): BP systolic 86–124; BP diastolic 48–80
[2017-05-22] MEDS: HYDRAGUARD CREAM TP SCH ×2 (00:09→12:17)
[2017-05-22] MEDS: Z-GUARD PASTE TP SCH ×2 (00:09→12:17)
--- NOTE | 2017-05-22 00:16 | NUR ---
bm noted;pt washed. gtube feeding clamped for now; pt given dilantin. will resume in 2 hours.flacc 0.repositioned.
--- NOTE | 2017-05-22 03:15 | NUR ---
bm noted.large amt of soft to watery brownish stool.pt washed.repositioned.flacc 0/afebrile
--- NOTE | 2017-05-22 04:00 | NUR ---
afebrile.not in resp distress.flacc 0
[2017-05-22] MEDS: METOCLOPRAMIDE 10 MG/2 ML INJ VIAL IVP SCH ×3 (04:29→20:24)
[2017-05-22 04:44] LABS: HEMATOCRIT 28.8 % (36-48); HEMOGLOBIN 9.5 g/dL (12.0-16.0); MEAN CORPUSCULAR HEMOGLOBIN 31 pg (27-31); MEAN CORPUSCULAR HGB CONC 33 g/dL (33-37); MEAN CORPUSCULAR VOLUME 93 fL (80-94); PLATELET COUNT (AUTO) 468 K/uL (140-450); RED BLOOD CELL COUNT(AUTO) 3.09 MIL/uL (4.20-5.40); RED CELL DISTRIBUTION WIDTH 16.4 % (11.6-13.7)
[2017-05-22 04:58] LABS: EOSINOPHILS % (MANUAL) 2 % (0-4); LYMPHOCYTES % (MANUAL) 20 % (20-46); MONOCYTES % (MANUAL) 4 % (5-12); WHITE BLOOD COUNT (AUTO) 12.8 K/uL (4.8-10.8)
[2017-05-22 05:10] LABS: ANION GAP 8.1 (8-16); CREATININE 0.7 mg/dL (0.6-1.3); POTASSIUM 4.1 mmol/L (3.5-5.1)
[2017-05-22] MEDS: PHENYTOIN 100 MG/4 ML UDC GT SCH ×4 (05:47→23:35)
[2017-05-22] MEDS: BLOOD GLUCOSE MONITORING 1 DEV DEV FS SCH ×4 (05:47→23:35)
--- NOTE | 2017-05-22 06:17 | NUR ---
morning care done.bm noted.mod amt of liquid stool.foam dressing to sacrum changed.w/ old scar.no skin breakdown in sacral area.jauregui catheter intact.repositioned.flacc 0
[2017-05-22] MEDS: ALBUTEROL SULFATE/IPRATROPIU 3 ML SOL IH SCH ×3 (06:54→18:00)
--- NOTE | 2017-05-22 07:15 | NUR ---
RECEIVED A REPORT FROM SAMIRA ALMENDAREZ RN. PT CLOSED EYES, NONVERBAL AND UNABLE TO FOLLOW COMMANDS AT THIS TIME. FLACC 0 AND NO S/SX OF RESPIRATORY DISTRESS. TRACH TO VENT AND SETTING AT FiO2 28, TV 500, AC16, PEEP 5. SR ON THE MONITOR. G-TUBE IN PLACE AND ON HOLD TUBE FEEDING FOR DILANTIN DOSE AT THIS TIME. WEST CATHETER DRAINING CLEAR YELLOW URINE. SKIN WARM TO TOUCH, NO EDEMA NOTED. IV SITE ON LT IJ [id number], PATENT AND INTACT. SAFETY PRECAUTION, BED IN LOW POSITION. CALL LIGHT WITHIN REACH. WILL CONTINUE TO MONITOR.
[2017-05-22] MEDS: METHIMAZOLE 5 MG TAB GT SCH ×2 (08:06→20:24)
[2017-05-22] MEDS: THIAMINE 100 MG TAB GT SCH (08:06)
[2017-05-22] MEDS: FERROUS SULFATE 300 MG/5 ML UDC GT SCH (08:06)
[2017-05-22] MEDS: LACTULOSE 20 GM/30 ML UDC GT SCH (08:06)
[2017-05-22] MEDS: GLYCOPYRROLATE 1 MG TAB GT SCH ×2 (08:06→20:24)
[2017-05-22] MEDS: LACTOBACILLUS RHAMNOSUS GG 1 EACH CAP PO SCH (08:06)
[2017-05-22] MEDS: CALCIUM CARB/VIT-D 500 MG/200 IU 1 TAB PO SCH (08:07)
[2017-05-22] MEDS: LISINOPRIL 10 MG TAB GT SCH (08:07)
[2017-05-22] MEDS: ASCORBIC ACID 500 MG TAB GT SCH (08:07)
[2017-05-22] MEDS: LANSOPRAZOLE 30 MG CAPDR GT SCH (08:07)
[2017-05-22] MEDS: NYSTATIN/TRIAMCINOLONE CRM 15 GM TUBE TP SCH ×2 (08:07→20:25)
[2017-05-22] MEDS ORDERED: IPRA3AMP IH ×4 (08:15→21:28)
[2017-05-22] MEDS ORDERED: FER300L GT ×2 (08:15→21:28)
[2017-05-22] MEDS ORDERED: BISA10SU46 RC ×2 (08:15→21:28)
[2017-05-22] MEDS ORDERED: [UNRECOGNIZED DRUG - CODE] GT ×2 (08:15→21:28)
[2017-05-22] MEDS ORDERED: Foam Dressing TP ×2 (08:15→21:28)
[2017-05-22] MEDS ORDERED: LACT10SO11 GT ×2 (08:15→21:28)
[2017-05-22] MEDS ORDERED: METO5SOL24 IVP ×2 (08:15→21:28)
[2017-05-22] MEDS ORDERED: Hydraguard TP ×2 (08:15→21:28)
[2017-05-22] MEDS ORDERED: NYSTRC TP ×2 (08:15→21:28)
[2017-05-22] MEDS ORDERED: ZGUARD TP ×2 (08:15→21:28)
[2017-05-22] MEDS ORDERED: LANS30EC68 GT ×2 (08:15→21:28)
--- NOTE | 2017-05-22 08:52 | NUR ---
HOLD LISINOPRIL DUE TO DECREASED BP AND PT TOLERATED OTHER MEDICATIONS WELL. RESUMED TUBE FEEDING ORDERED.
--- NOTE | 2017-05-22 09:03 | NUR ---
vent check, no sxn required at this time, airway is patent and pt is resting b\s coarse no signs of distress at this time.
--- NOTE | 2017-05-22 09:42 | NUR ---
DR. ENRIQUE IN TO SEE PT. WILL FOLLOW UP ON ORDERS
--- NOTE | 2017-05-22 09:45 | NUR ---
CALLED PT.DAUGHTER DAJA [phone] TO SIGN THE TRANSFER [employer] FORM . SHE IS OUT OF STATE AND WOULD LIKE TO GIVE TELEPHONE CONSENT BUT THE HEALTH CARE MARKETING MANAGER LOW SAID [facility] [place] NOT [place] THAT. THE SON MASTER PRICE IS ON THE WAY TO SIGN THE FORM.
--- NOTE | 2017-05-22 10:55 | NUR ---
RECEIVED A FORM FROM [facility] [place]S TO BE SIGNED BEFORE THEY CAN PROCEED WITH TRYING TRANSFER, CALL REPATRIATION AGREEMENT. CALLED [facility] AND SPOKE WITH LOR. STILL WAITING FOR BEDS.
--- NOTE | 2017-05-22 11:08 | NUR ---
PT PUT ON CPAP, RSBI 78. DUE TO LOW BP, PATIENT WAS PUT BACK ON AC. Addendum: 05/22/17 at 1114 by Wesley Moreau RT PT TOLERATING ON AC. SATS 97%
--- NOTE | 2017-05-22 11:17 | NUR ---
FAXED SIGNED LETTER AGREEMENT TO [facility] FAX [phone]
--- NOTE | 2017-05-22 11:18 | NUR ---
PT STABLE. NO S/SX OF RESPIRATORY DISTRESS AND FLACC 0 NOTED. WILL CONTINUE TO MONITOR
[2017-05-22] MEDS: FOAM DRESSING TP SCH (12:17)
--- NOTE | 2017-05-22 12:18 | NUR ---
PT TOLERATED MEDS WELL.
--- NOTE | 2017-05-22 13:39 | NUR ---
PT'S SON IN LAW IS AT BEDSIDE. Addendum: 05/22/17 at 1356 by Emmett Kaminski RN TREY PRICE IN LAW WAS UPDATED OF PT'S CURRENT CONDITION.
--- NOTE | 2017-05-22 13:50 | NUR ---
SPOKE WITH SON IN LAW. HE SIGNED THE REPATRIATION AGREEMENT AND I FAXED IT TO [facility] [phone].
--- NOTE | 2017-05-22 14:27 | NUR ---
DR. MERINO IN TO SEE PT. WILL FOLLOW UP ON ORDERS.
--- NOTE | 2017-05-22 15:28 | NUR ---
PORTIA, PT'S DAUGHTER CALLED AND WAS UPDATED OF PT'S CONDITION.
--- NOTE | 2017-05-22 15:42 | NUR ---
CALLED [facility] AND SPOKE WITH TALIA, NO BEDS YET. I GAVE HER THE PHONE NUMBER TO THE ICU. SPOKE WITH DAVINA AT [facility] AND HE SAID HE RECEIVED THE FORM NEEDED. HE WOULD BE LOOKING FOR A BED. I GAVE HIM THE NUMBER TO ICU.
--- NOTE | 2017-05-22 16:54 | NUR ---
LT IJ CENTRAL LINE DRESSING CHANGED AND NO S/SX OF INFECTION NOTED.
--- NOTE | 2017-05-22 18:28 | NUR ---
REC'D PT ON CARESCAPE VENT SETTINGS AC18 VT 500 PEEP 5 FIO2 28% ALARMS ON AND FUNCTIONING PROPERLY, AMBU BAG AT SIDE OF VENT AND VENTILATOR IS PLUGGED INTO RED OUTLET, SXN PT SMALL AMT OF THICK YELLOW SECRETIONS, B\S ARE COARSE BILATERALLY, PT IS TRACH WITH PORTEX 7 AND SKIN INTEGRITY IS INTACT, CUFF PRESSURE IS 26 CM H20 NO TX GIVEN PT IS SLEEPING WITH NO SIGNS OF DISTRESS NOTED AT THIS TIME
--- NOTE | 2017-05-22 18:34 | NUR ---
FLACC 0 AND NO S/SX OF ACUTE RESPIRATORY DISTRESS. PT HAD LARGE BOWEL MOVEMENT, SOFT AND BROWN COLOR. PROVIDED HYGIENE CARE AND COMFORT. WILL CONTINUE TO MONITOR
--- NOTE | 2017-05-22 18:58 | NUR ---
REPORT GIVEN AND ENDORSED CARE TO SAMIRA ALMENDAREZ RN. PT YUN.
--- NOTE | 2017-05-22 19:50 | NUR ---
RECEIVED CALL FROM [facility][phone][place] PATIENT TO GO TO NEURO ICU BED 5223, . DR ROBLES (RESIDENT) HERE IN THE UNIT AND INFORMED.
--- NOTE | 2017-05-22 20:00 | NUR ---
PT ASLEEP;SR ON MONITOR.TRACH TO VENT;FIO2 28% TV500 AC PEEP 5 AC16.SECRETIONS SUCTIONED NEEDED.GTUBE INTACT.GTUBE FEEDING DIABETISOURCE RESTARTED ORDERED.WEST CATHETER INTACT.FOAM DRESSING TO SACROCOCCYGEAL AREA INTACT.TLC TO LT IJ INTACT.SALINE LOCK.FLACC 0
--- NOTE | 2017-05-22 20:10 | NUR ---
CALLED ALBERT TSAUFFERRICK (SON IN LAW) [phone] AND INFORMED THAT PATIENT ALREADY HAVE A BED AT [facility], TOLD ALBERT TO CONTACT PATIENT'S DAUGHTER DAJA BECAUSE HER NUMBER [phone] IS NOT WORKING AT THIS TIME. ALBERT SAID THAT HE WILL NOTIFY DAJA.
[2017-05-22] MEDS: ATORVASTATIN 20 MG TAB GT SCH (20:24)
--- NOTE | 2017-05-22 20:25 | NUR ---
CALLED [facility] TO TRANSPORT PATIENT, PER RITU NO CCT AMBULANCE AVAILABLE AT THIS TIME AND WILL CALL BACK WITHIN THE NEXT HOUR. ESTEFANY VALLEJO, GM INFORMED OF THE TRANSPORT SITUATION.
--- NOTE | 2017-05-22 20:55 | NUR ---
PHONE CALL TO [facility] NEURO ICU FOR BED 5285; SPOKE WITH MINOR CONKLIN. REPORT GIVEN.QUESTIONS ANSWERED.MADE AWARE THAT [facility] HAS NOT GIVEN KNOT TYING OPERATOR AGER TENDER TIME
[2017-05-22] MEDS ORDERED: NYSTATIN/TRIAMCINOLONE CRM 15 GM TUBE TP SCH (21:00)
--- NOTE | 2017-05-22 21:15 | NUR ---
[facility] CALLED AT 2100, ETA GIVEN . NOTIFIED ESTEFANY VALLEJO, BUDGET MANAGER, SHE CALLED KAYLYN, CASE MANAGEMENT IF WE CAN CALL OTHER AMBULANCE, PER ESTEFANY, KAYLYN TOLD HER ONLY [facility]ANCE. NOTIFIED MINOR CONKLIN FROM [facility] THAT PATIENT WILL BE MANAGER DEPARTMENT HERE IN THE UNIT AT [phone].
--- NOTE | 2017-05-22 23:20 | NUR ---
RECEIVED CALL FROM [facility], ETA 45 MINS TO AN HOUR.
--- NOTE | 2017-05-22 23:23 | NUR ---
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
[2017-05-23] VITALS: BP 92/52
--- NOTE | 2017-05-23 | NUR ---
ORAL CARE USING VAP KIT RENDERED.PT AWAKE.BM NOTED.MODERATE AMT OF LIQUID BROWNISH STOOL.WASHED.CREAM APPLIED. GTUBE STILL CLAMPED.BS 93.REPOSITIONED.FLACC 0
[2017-05-23] MEDS: HYDRAGUARD CREAM TP SCH (00:25)
[2017-05-23] MEDS: Z-GUARD PASTE TP SCH (00:25)
--- NOTE | 2017-05-23 00:44 | NUR ---
[facility] PERSONNEL IN THE UNIT.REPORT GIVEN. LATEST V/S TEMP 98.2 HR 72 BP 97/58 02SAT 97% RESP 16. ALSO CALLED RUBIN OF [facility] PER HER REQUEST; ETA 0120 [facility] P[facility]EL.
--- NOTE | 2017-05-23 00:55 | NUR ---
PT TRANSFERRED TO [facility] ICU BED 5223 VIA [facility]
== END 2017-05-23 00:55 | disposition short-term general hospital (02) | DRG 720 ==
LOC: MED 03:10 → MIC 06:34
PROVIDERS: ADMIT Family Medicine; ATTEND Family Medicine
PROC: 5A1955Z Respiratory Ventilation, Greater than 96 Consecutive Hours (ICD-10-PCS; principal; 2017-05-13)
PROC: 02HV33Z Insertion of Infusion Device into Superior Vena Cava, Percutaneous Approach (ICD-10-PCS; 2017-05-13)
PROC: B543ZZA Ultrasonography of Right Jugular Veins, Guidance (ICD-10-PCS; 2017-05-13)
PROC: 0DB58ZX Excision of Esophagus, Via Natural or Artificial Opening Endoscopic, Diagnostic (ICD-10-PCS; 2017-05-15)
DX: A41.9 Sepsis, unspecified organism (principal); N17.0 Acute kidney failure with tubular necrosis; I61.5 Nontraumatic intracerebral hemorrhage, intraventricular; J96.21 Acute and chronic respiratory failure with hypoxia; R65.21 Severe sepsis with septic shock; Z99.11 Dependence on respirator [ventilator] status; Z93.0 Tracheostomy status; J69.0 Pneumonitis due to inhalation of food and vomit; L89.152 Pressure ulcer of sacral region, stage 2; I42.9 Cardiomyopathy, unspecified; E43 Unspecified severe protein-calorie malnutrition; D68.59 Other primary thrombophilia; K22.10 Ulcer of esophagus without bleeding; G91.4 Hydrocephalus in diseases classified elsewhere; E87.1 Hypo-osmolality and hyponatremia; N39.0 Urinary tract infection, site not specified; E83.41 Hypermagnesemia; D63.8 Anemia in other chronic diseases classified elsewhere; E05.90 Thyrotoxicosis, unspecified without thyrotoxic crisis or storm; E78.5 Hyperlipidemia, unspecified; I10 Essential (primary) hypertension; I25.10 Atherosclerotic heart disease of native coronary artery without angina pectoris; J40 Bronchitis, not specified as acute or chronic; K43.9 Ventral hernia without obstruction or gangrene; K44.9 Diaphragmatic hernia without obstruction or gangrene; K56.41 Fecal impaction; E11.51 Type 2 diabetes mellitus with diabetic peripheral angiopathy without gangrene; I35.0 Nonrheumatic aortic (valve) stenosis; D64.9 Anemia, unspecified; K92.2 Gastrointestinal hemorrhage, unspecified; Z16.24 Resistance to multiple antibiotics; F01.50 Vascular dementia, unspecified severity, without behavioral disturbance, psychotic disturbance, mood disturbance, and anxiety; Z16.12 Extended spectrum beta lactamase (ESBL) resistance; G40.909 Epilepsy, unspecified, not intractable, without status epilepticus; Z68.26 Body mass index [BMI] 26.0-26.9, adult; Z86.718 Personal history of other venous thrombosis and embolism; Z88.0 Allergy status to penicillin; Z88.8 Allergy status to other drugs, medicaments and biological substances; Z93.1 Gastrostomy status; Z82.3 Family history of stroke; Z82.49 Family history of ischemic heart disease and other diseases of the circulatory system
CPT/HCPCS: 36415; 36600; 70450; 71010; 74000; 80048; 80053; 80185; 80202; 81001; 82150; 82803; 82948; 83036; 83605; 83690; 83735; 83880; 84100; 84436; 84439; 84443; 84479; 84484; 85018; 85025; 85610; 85730; 87040; 87070; 87077; 87081; 87086; 87186; 87205; 88305; 88312; 93005; 94002; 94003; 94640; 96365; 96367; 96375; 99291; C9113; J0696; J1100; J1200; J1450; J1642; J1815; J1956; J2020; J2060; J2150; J2185; J2250; J2765; J2997; J3010; J3360; J3370; J3480; J3490; J7030; J7042; J7060; J7620; Q0092

== ENCOUNTER 2017-05-26 21:25 | Inpatient (IN) | payer MEDICAID ==
[~2017-05-26] VITALS: Ht 160 cm; Wt 77.6 kg
[~2017-05-26 21:25] MED LIST changes: -ACET-2869 GT; -ACET-9529 PO; -ALBUTEROL INH; +ASPI81CT89 PO; -ATROVENT INH; -BISA-213 RC; +BISA10SU46 RC; -ESOM40EC GT; +FER300L GT; +Foam Dressing TP; -HEPA500055 SUBQ; -HUMSLIDE SUBQ; +Hydraguard TP; +IPRA3AMP IH; -LACT10CA GT; +LACT10SO11 GT; +LANS30EC68 GT; -MAGN400S60 GT; -MER1I IV; +METO5SOL24 IVP; -NA P133E RC; -NUTR30LI3 GT; +NYSTRC TP; -ONDA4TAB GT; -PRED20TA5 GT; -QUET25TA PO; +ROB1 GT; -SCOP1PAT TP; -SENN-89 PO; +ZGUARD TP; -ZYV600I IV
[2017-05-26 21:53] VITALS: BP 125/71
[2017-05-26 22:00] VITALS: BP 128/68
[2017-05-26] MEDS ORDERED: DOCUSATE SODIUM 100 MG GELCAP PO PRN (23:55)
[2017-05-26] MEDS ORDERED: HYDROcodone/APAP 7.5/325 MG 1 TAB PO PRN (23:55)
[2017-05-26] MEDS ORDERED: ACETAMINOPHEN 325 MG TAB PO PRN (23:55)
[2017-05-26] MEDS ORDERED: MORPHINE SULFATE 2 MG/ML SYR IVP PRN (23:55)
[2017-05-26] MEDS ORDERED: NACL 0.9% 1,000 ML IV SCH (23:55)
[2017-05-26] MEDS ORDERED: ONDANSETRON 4 MG/2 ML VIAL IM/IVP PRN (23:55)
[2017-05-27] VITALS (23 sets, daily range): BP systolic 76–128; BP diastolic 45–67
[2017-05-27] MEDS ORDERED: BISACODYL 10 MG SUPP RC PRN (00:15)
[2017-05-27] MEDS ORDERED: INSULIN LISPRO SLIDING SCALE 100 UNITS/ML VIAL SUBQ PRN (00:35)
[2017-05-27] MEDS ORDERED: DEXTROSE 50% 50 ML SYR IVP PRN (00:35)
[2017-05-27 00:37] LABS: APPEARANCE,URINE CLEAR (CLEAR); BILIRUBIN,URINE NEGATIVE (NEGATIVE); BLOOD, URINE TRACE-L (NEGATIVE); COLOR,URINE YELLOW (YELLOW); LEUKOCYTE ESTERASE ,URINE NEGATIVE (NEGATIVE); NITRITE, URINE NEGATIVE (NEGATIVE); UGLUCOSE NEGATIVE (NEGATIVE)
[2017-05-27 00:41] LABS: RBC,URINE 0-5 (RARE) /HPF (0-5); WBC,URINE 0-5 (RARE) /HPF (0-5)
[2017-05-27] MEDS ORDERED: Z-GUARD PASTE TP ONE (00:45)
[2017-05-27] MEDS ORDERED: FOAM DRESSING TP PRN (00:45)
[2017-05-27] MEDS ORDERED: HYDROcodone/APAP 7.5/325 MG 1 TAB PO PRN (00:55)
[2017-05-27] MEDS ORDERED: MORPHINE SULFATE 2 MG/ML SYR IVP PRN (00:55)
[2017-05-27] MEDS ORDERED: ONDANSETRON 4 MG/2 ML VIAL IM/IVP PRN (00:55)
[2017-05-27] MEDS: METOCLOPRAMIDE 10 MG/10 ML SYRP UDC GT SCH ×3 (05:23→20:49)
[2017-05-27] MEDS ORDERED: PHENYTOIN 100 MG/4 ML UDC GT SCH ×2 (06:00→09:00)
[2017-05-27 06:46] LABS: BASOPHILS # (AUTO) 0.1 K/uL (0.00-0.22); BASOPHILS % (AUTO) 1.8 % (0.0-2.0); EOSINOPHILS # (AUTO) 0.2 K/uL (0-0.4); EOSINOPHILS % (AUTO) 2.4 % (0.0-4.0); HEMOGLOBIN 7.4 g/dL (12.0-16.0); LYMPHOCYTES # (AUTO) 1.6 K/uL (2.5-16.5); LYMPHOCYTES % (AUTO) 19.9 % (20.5-51.1); MEAN CORPUSCULAR HEMOGLOBIN 32 pg (27-31); MEAN CORPUSCULAR HGB CONC 34 g/dL (33-37); MEAN CORPUSCULAR VOLUME 94 fL (80-94); MONOCYTES # (AUTO) 0.6 K/uL (0.8-1.0); MONOCYTES % (AUTO) 7.3 % (1.7-9.3); NEUTROPHILS # (AUTO) 5.5 K/uL (1.8-7.7); NEUTROPHILS % (AUTO) 68.6 % (42.2-75.2); PLATELET COUNT (AUTO) 292 K/uL (140-450); RED BLOOD CELL COUNT(AUTO) 2.33 MIL/uL (4.20-5.40); RED CELL DISTRIBUTION WIDTH 15.8 % (11.6-13.7)
[2017-05-27 06:50] LABS: HEMATOCRIT 21.9 % (36-48)
[2017-05-27] MEDS: BLOOD GLUCOSE MONITORING 1 DEV DEV FS SCH ×4 (06:52→20:51)
[2017-05-27] MEDS ORDERED: DOCUSATE 100 MG/10 ML UDC PO PRN (07:15)
[2017-05-27 07:34] LABS: PROTHROMBIN TIME 10.3 secs (10.8-13.4)
[2017-05-27 07:38] LABS: ALBUMIN 1.5 g/dL (3.4-5.0); ANION GAP 10.4 (8-16); CARBON DIOXIDE 26.2 mmol/L (21-32); CREATININE 0.5 mg/dL (0.6-1.3); MAGNESIUM 1.8 mg/dL (1.8-2.4); PHENYTOIN (DILANTIN) 7.1 ug/ml (10.0-20.0); PHOSPHORUS 2.7 mg/dL (2.5-4.9); POTASSIUM 3.6 mmol/L (3.5-5.1); TOTAL BILIRUBIN 0.2 mg/dL (0.0-1.0)
[2017-05-27 07:54] LABS: CHOL/HDL RATIO 2.1 (1-4.5)
[2017-05-27] MEDS ORDERED: MILD SOAP AND WATER TP SCH (09:00)
[2017-05-27] MEDS ORDERED: levETIRAcetam 100 MG/ML ORASYR GT SCH (09:00)
[2017-05-27] MEDS ORDERED: LACTOBACILLUS RHAMNOSUS GG 1 EACH CAP PO SCH (09:00)
[2017-05-27] MEDS ORDERED: PANTOPRAZOLE 40 MG INJ VIAL IVP SCH (09:00)
[2017-05-27] MEDS: FERROUS SULFATE 300 MG/5 ML UDC GT SCH (09:07)
[2017-05-27] MEDS: LACTULOSE 20 GM/30 ML UDC GT SCH (09:07)
[2017-05-27] MEDS: PANTOPRAZOLE 40 MG INJ VIAL IVP SCH (09:07)
[2017-05-27] MEDS: LANSOPRAZOLE 30 MG CAPDR GT SCH (09:08)
[2017-05-27] MEDS: ASPIRIN 81 MG TAB.CHEW PO SCH (09:09)
[2017-05-27] MEDS: LISINOPRIL 10 MG TAB GT SCH (09:09)
[2017-05-27] MEDS: THIAMINE 100 MG TAB GT SCH (09:10)
[2017-05-27] MEDS: ASCORBIC ACID 500 MG TAB GT SCH (09:10)
[2017-05-27] MEDS: METHIMAZOLE 5 MG TAB GT SCH ×2 (09:10→20:50)
[2017-05-27] MEDS: GLYCOPYRROLATE 1 MG TAB GT SCH ×2 (09:11→20:50)
[2017-05-27] MEDS: DEXT 5% /NACL 0.9% 1,000 ML IV SCH ×3 (10:00→11:50)
[2017-05-27] MEDS: ACETAMINOPHEN 325 MG TAB PO PRN (13:18)
[2017-05-27] MEDS ORDERED: levETIRAcetam 1,000 MG in NACL 0.9% 100 ML IV SCH (14:00)
[2017-05-27] MEDS ORDERED: PHENYTOIN 100 MG/2 ML VIAL IVP SCH (14:00)
[2017-05-27] MEDS ORDERED: levETIRAcetam 100 MG/ML VIAL IV ONE (17:32)
[2017-05-27] MEDS: levETIRAcetam 1,000 MG in NACL 0.9% 100 ML IV SCH (17:59)
[2017-05-27] MEDS: ALBUTEROL SULFATE/IPRATROPIU 3 ML SOL IH PRN (18:51)
[2017-05-27] MEDS: PHENYTOIN 100 MG/2 ML VIAL IVP SCH (20:49)
[2017-05-27] MEDS: ATORVASTATIN 20 MG TAB PO SCH (20:50)
[2017-05-27] MEDS ORDERED: VANCOMYCIN PER PHARMACY MC PRN (21:20)
[2017-05-27] MEDS ORDERED: VANCOMYCIN 1GM/DEXT 5% PREMIX 200 ML IV SCH (21:30)
[2017-05-27] MEDS ORDERED: VANCOMYCIN 1,000 MG VIAL ONE (22:03)
[2017-05-27] MEDS ORDERED: CEFEPIME 1,000 MG VIAL ONE (22:04)
[2017-05-28] VITALS (23 sets, daily range): BP systolic 78–142; BP diastolic 35–73
[2017-05-28] MEDS ORDERED: CEFEPIME 1,000 MG in DEXTROSE 5% 50 ML IV SCH ×2
[2017-05-28] MEDS: levETIRAcetam 1,000 MG in NACL 0.9% 100 ML IV SCH ×4 (00:45→17:50)
[2017-05-28] MEDS: METOCLOPRAMIDE 10 MG/10 ML SYRP UDC GT SCH ×3 (05:38→20:49)
[2017-05-28 05:41] LABS: BASOPHILS # (AUTO) 0.1 K/uL (0.00-0.22); BASOPHILS % (AUTO) 1.2 % (0.0-2.0); EOSINOPHILS # (AUTO) 0.6 K/uL (0-0.4); EOSINOPHILS % (AUTO) 6.5 % (0.0-4.0); HEMOGLOBIN 13.5 g/dL (12.0-16.0); LYMPHOCYTES # (AUTO) 0.7 K/uL (2.5-16.5); LYMPHOCYTES % (AUTO) 7.2 % (20.5-51.1); MEAN CORPUSCULAR HEMOGLOBIN 36 pg (27-31); MEAN CORPUSCULAR HGB CONC 33 g/dL (33-37); MEAN CORPUSCULAR VOLUME 110 fL (80-94); MONOCYTES # (AUTO) 0.6 K/uL (0.8-1.0); MONOCYTES % (AUTO) 6.6 % (1.7-9.3); NEUTROPHILS # (AUTO) 7.6 K/uL (1.8-7.7); NEUTROPHILS % (AUTO) 78.5 % (42.2-75.2); PLATELET COUNT (AUTO) 118 K/uL (140-450); RED BLOOD CELL COUNT(AUTO) 3.73 MIL/uL (4.20-5.40); RED CELL DISTRIBUTION WIDTH 15.8 % (11.6-13.7)
[2017-05-28 05:46] LABS: CREATININE 0.8 mg/dL (0.6-1.3)
[2017-05-28 05:51] LABS: POTASSIUM 3.1 mmol/L (3.5-5.1)
[2017-05-28 06:01] LABS: ANION GAP 6.9 (8-16); CARBON DIOXIDE 39.2 mmol/L (21-32)
[2017-05-28] MEDS: BLOOD GLUCOSE MONITORING 1 DEV DEV FS SCH ×4 (06:32→21:51)
[2017-05-28 06:43] LABS: WHITE BLOOD COUNT (AUTO) 9.6 K/uL (4.8-10.8)
[2017-05-28] MEDS: PANTOPRAZOLE 40 MG INJ VIAL IVP SCH (08:21)
[2017-05-28] MEDS: FERROUS SULFATE 300 MG/5 ML UDC GT SCH (08:21)
[2017-05-28] MEDS: LANSOPRAZOLE 30 MG CAPDR GT SCH (08:22)
[2017-05-28] MEDS: ASCORBIC ACID 500 MG TAB GT SCH (08:22)
[2017-05-28] MEDS: PHENYTOIN 100 MG/2 ML VIAL IVP SCH ×2 (08:22→20:50)
[2017-05-28] MEDS: LISINOPRIL 10 MG TAB GT SCH (08:22)
[2017-05-28] MEDS: THIAMINE 100 MG TAB GT SCH (08:23)
[2017-05-28] MEDS: GLYCOPYRROLATE 1 MG TAB GT SCH ×2 (08:23→20:50)
[2017-05-28] MEDS: ASPIRIN 81 MG TAB.CHEW PO SCH (08:23)
[2017-05-28] MEDS: METHIMAZOLE 5 MG TAB GT SCH ×2 (08:24→20:50)
[2017-05-28] MEDS: CEFEPIME 1,000 MG in DEXTROSE 5% 50 ML IV SCH ×2 (08:24→20:51)
[2017-05-28] MEDS: VANCOMYCIN 750 MG in DEXTROSE 5% 250 ML IV SCH ×2 (09:02→20:49)
[2017-05-28] MEDS: LACTULOSE 20 GM/30 ML UDC GT SCH (09:06)
[2017-05-28] MEDS ORDERED: KCL 20 MEQ/WATER INJ PREMIX 200 ML IV SCH (09:30)
[2017-05-28] MEDS ORDERED: PHENYTOIN 1,000 MG in NACL 0.9% 100 ML IV SCH (10:30)
[2017-05-28] MEDS: ACETAMINOPHEN 325 MG TAB PO PRN (16:15)
[2017-05-28] MEDS: DEXT 5% /NACL 0.9% 1,000 ML IV SCH (20:00)
[2017-05-28] MEDS: ATORVASTATIN 20 MG TAB PO SCH (20:49)
[2017-05-29] VITALS (24 sets, daily range): BP systolic 92–145; BP diastolic 55–89
[2017-05-29] MEDS: levETIRAcetam 1,000 MG in NACL 0.9% 100 ML IV SCH ×5 (00:11→23:43)
[2017-05-29] MEDS: METOCLOPRAMIDE 10 MG/10 ML SYRP UDC GT SCH ×3 (04:59→20:44)
[2017-05-29 05:24] LABS: PROTHROMBIN TIME 10.1 secs (10.8-13.4)
[2017-05-29 05:34] LABS: BASOPHILS # (AUTO) 0.2 K/uL (0.00-0.22); BASOPHILS % (AUTO) 2.8 % (0.0-2.0); EOSINOPHILS # (AUTO) 0.4 K/uL (0-0.4); EOSINOPHILS % (AUTO) 5.4 % (0.0-4.0); HEMATOCRIT 24.3 % (36-48); LYMPHOCYTES # (AUTO) 1.4 K/uL (2.5-16.5); LYMPHOCYTES % (AUTO) 20.7 % (20.5-51.1); MEAN CORPUSCULAR HEMOGLOBIN 31 pg (27-31); MEAN CORPUSCULAR HGB CONC 33 g/dL (33-37); MEAN CORPUSCULAR VOLUME 94 fL (80-94); MONOCYTES # (AUTO) 0.4 K/uL (0.8-1.0); MONOCYTES % (AUTO) 6.5 % (1.7-9.3); NEUTROPHILS # (AUTO) 4.2 K/uL (1.8-7.7); NEUTROPHILS % (AUTO) 64.6 % (42.2-75.2); PLATELET COUNT (AUTO) 382 K/uL (140-450); RED BLOOD CELL COUNT(AUTO) 2.59 MIL/uL (4.20-5.40); RED CELL DISTRIBUTION WIDTH 15.3 % (11.6-13.7); WHITE BLOOD COUNT (AUTO) 6.6 K/uL (4.8-10.8)
[2017-05-29 05:38] LABS: ANION GAP 7.8 (8-16); CARBON DIOXIDE 29.2 mmol/L (21-32); CREATININE 0.7 mg/dL (0.6-1.3)
[2017-05-29] MEDS: ACETAMINOPHEN 325 MG TAB PO PRN (05:57)
[2017-05-29] MEDS: BLOOD GLUCOSE MONITORING 1 DEV DEV FS SCH ×4 (06:46→20:45)
[2017-05-29] MEDS: GLYCOPYRROLATE 1 MG TAB GT SCH ×2 (09:00→20:45)
[2017-05-29] MEDS: METHIMAZOLE 5 MG TAB GT SCH ×2 (09:00→20:45)
[2017-05-29] MEDS: LANSOPRAZOLE 30 MG CAPDR GT SCH (09:00)
[2017-05-29] MEDS: ASPIRIN 81 MG TAB.CHEW PO SCH (09:00)
[2017-05-29] MEDS: LISINOPRIL 10 MG TAB GT SCH (09:00)
[2017-05-29] MEDS: ASCORBIC ACID 500 MG TAB GT SCH (09:00)
[2017-05-29] MEDS: PHENYTOIN 100 MG/2 ML VIAL IVP SCH (09:00)
[2017-05-29] MEDS: LACTULOSE 20 GM/30 ML UDC GT SCH (09:00)
[2017-05-29] MEDS: THIAMINE 100 MG TAB GT SCH (09:00)
[2017-05-29] MEDS: FERROUS SULFATE 300 MG/5 ML UDC GT SCH (09:00)
[2017-05-29] MEDS: CEFEPIME 1,000 MG in DEXTROSE 5% 50 ML IV SCH (09:03)
[2017-05-29] MEDS: PANTOPRAZOLE 40 MG INJ VIAL IVP SCH (09:22)
[2017-05-29] MEDS: VANCOMYCIN 750 MG in DEXTROSE 5% 250 ML IV SCH (10:01)
[2017-05-29 12:28] LABS: BASOPHILS # (AUTO) 0.2 K/uL (0.00-0.22); BASOPHILS % (AUTO) 3.4 % (0.0-2.0); EOSINOPHILS # (AUTO) 0.3 K/uL (0-0.4); EOSINOPHILS % (AUTO) 3.5 % (0.0-4.0); HEMATOCRIT 22.5 % (36-48); HEMOGLOBIN 7.5 g/dL (12.0-16.0); LYMPHOCYTES % (AUTO) 27.6 % (20.5-51.1); MEAN CORPUSCULAR HEMOGLOBIN 31 pg (27-31); MEAN CORPUSCULAR HGB CONC 34 g/dL (33-37); MEAN CORPUSCULAR VOLUME 93 fL (80-94); MONOCYTES # (AUTO) 0.6 K/uL (0.8-1.0); MONOCYTES % (AUTO) 8.8 % (1.7-9.3); NEUTROPHILS # (AUTO) 4.2 K/uL (1.8-7.7); NEUTROPHILS % (AUTO) 56.7 % (42.2-75.2); PLATELET COUNT (AUTO) 378 K/uL (140-450); RED BLOOD CELL COUNT(AUTO) 2.41 MIL/uL (4.20-5.40); RED CELL DISTRIBUTION WIDTH 15.2 % (11.6-13.7); WHITE BLOOD COUNT (AUTO) 7.3 K/uL (4.8-10.8)
[2017-05-29] MEDS: ALBUTEROL SULFATE/IPRATROPIU 3 ML SOL IH PRN (15:25)
[2017-05-29] MEDS ORDERED: GENTAMICIN PER PHARMACY MC PRN (17:20)
[2017-05-29] MEDS ORDERED: DEXTROSE 5% IV SCH (18:00)
[2017-05-29] MEDS ORDERED: GENTAMICIN IV SCH (18:00)
[2017-05-29] MEDS: DEXT 5% /NACL 0.9% 1,000 ML IV SCH (20:00)
[2017-05-29] MEDS: ATORVASTATIN 20 MG TAB PO SCH (20:44)
[2017-05-30] VITALS (24 sets, daily range): BP systolic 84–128; BP diastolic 48–84
[2017-05-30] MEDS: METOCLOPRAMIDE 10 MG/10 ML SYRP UDC GT SCH ×3 (04:54→20:47)
[2017-05-30 04:55] LABS: HEMOGLOBIN 7.7 g/dL (12.0-16.0); WHITE BLOOD COUNT (AUTO) 4.9 K/uL (4.8-10.8)
[2017-05-30 04:59] LABS: HEMATOCRIT 23.2 % (36-48); MEAN CORPUSCULAR HEMOGLOBIN 31 pg (27-31); MEAN CORPUSCULAR HGB CONC 33 g/dL (33-37); MEAN CORPUSCULAR VOLUME 92 fL (80-94); PLATELET COUNT (AUTO) 368 K/uL (140-450); RED BLOOD CELL COUNT(AUTO) 2.51 MIL/uL (4.20-5.40); RED CELL DISTRIBUTION WIDTH 14.6 % (11.6-13.7)
[2017-05-30] MEDS: levETIRAcetam 1,000 MG in NACL 0.9% 100 ML IV SCH ×4 (05:01→23:48)
[2017-05-30 05:07] LABS: ANION GAP 10.3 (8-16); CARBON DIOXIDE 29.4 mmol/L (21-32); CREATININE 0.6 mg/dL (0.6-1.3); POTASSIUM 3.7 mmol/L (3.5-5.1)
[2017-05-30 05:08] LABS: EOSINOPHILS % (MANUAL) 7 % (0-4); LYMPHOCYTES % (MANUAL) 26 % (20-46); MONOCYTES % (MANUAL) 6 % (5-12)
[2017-05-30 05:12] LABS: MAGNESIUM 1.9 mg/dL (1.8-2.4); PHOSPHORUS 3.5 mg/dL (2.5-4.9)
[2017-05-30] MEDS: BLOOD GLUCOSE MONITORING 1 DEV DEV FS SCH ×4 (06:16→20:50)
[2017-05-30] MEDS: LACTULOSE 20 GM/30 ML UDC GT SCH (09:06)
[2017-05-30] MEDS: FERROUS SULFATE 300 MG/5 ML UDC GT SCH (09:07)
[2017-05-30] MEDS: LANSOPRAZOLE 30 MG CAPDR GT SCH (09:07)
[2017-05-30] MEDS: GLYCOPYRROLATE 1 MG TAB GT SCH ×2 (09:08→20:47)
[2017-05-30] MEDS: METHIMAZOLE 5 MG TAB GT SCH ×2 (09:09→20:48)
[2017-05-30] MEDS: ASCORBIC ACID 500 MG TAB GT SCH (09:10)
[2017-05-30] MEDS: THIAMINE 100 MG TAB GT SCH (09:10)
[2017-05-30] MEDS: LISINOPRIL 10 MG TAB GT SCH (09:14)
[2017-05-30] MEDS: PANTOPRAZOLE 40 MG INJ VIAL IVP SCH (09:15)
[2017-05-30] MEDS: ASPIRIN 81 MG TAB.CHEW PO SCH (09:15)
[2017-05-30] MEDS: PHENYTOIN 100 MG/2 ML VIAL IVP SCH ×2 (09:15→20:49)
[2017-05-30] MEDS: ALBUTEROL SULFATE/IPRATROPIU 3 ML SOL IH PRN (13:24)
[2017-05-30] MEDS: GENTAMICIN IV SCH (17:57)
[2017-05-30] MEDS: DEXTROSE 5% IV SCH (17:57)
[2017-05-30] MEDS: DEXT 5% /NACL 0.9% 1,000 ML IV SCH (20:00)
[2017-05-30] MEDS: ATORVASTATIN 20 MG TAB PO SCH (20:47)
[2017-05-31] VITALS (24 sets, daily range): BP systolic 70–162; BP diastolic 44–73
[2017-05-31] MEDS: METOCLOPRAMIDE 10 MG/10 ML SYRP UDC GT SCH ×3 (04:48→21:25)
[2017-05-31 04:59] LABS: BASOPHILS # (AUTO) 0.3 K/uL (0.00-0.22); BASOPHILS % (AUTO) 3.8 % (0.0-2.0); EOSINOPHILS # (AUTO) 0.3 K/uL (0-0.4); EOSINOPHILS % (AUTO) 5.1 % (0.0-4.0); HEMATOCRIT 25.6 % (36-48); HEMOGLOBIN 8.2 g/dL (12.0-16.0); LYMPHOCYTES # (AUTO) 1.7 K/uL (2.5-16.5); LYMPHOCYTES % (AUTO) 25.3 % (20.5-51.1); MEAN CORPUSCULAR HEMOGLOBIN 30 pg (27-31); MEAN CORPUSCULAR HGB CONC 32 g/dL (33-37); MEAN CORPUSCULAR VOLUME 94 fL (80-94); MONOCYTES # (AUTO) 0.5 K/uL (0.8-1.0); MONOCYTES % (AUTO) 7.6 % (1.7-9.3); NEUTROPHILS # (AUTO) 3.9 K/uL (1.8-7.7); NEUTROPHILS % (AUTO) 58.2 % (42.2-75.2); PLATELET COUNT (AUTO) 392 K/uL (140-450); RED BLOOD CELL COUNT(AUTO) 2.74 MIL/uL (4.20-5.40); RED CELL DISTRIBUTION WIDTH 15.5 % (11.6-13.7); WHITE BLOOD COUNT (AUTO) 6.7 K/uL (4.8-10.8)
[2017-05-31 05:14] LABS: ANION GAP 8.5 (8-16); CARBON DIOXIDE 29.4 mmol/L (21-32); CREATININE 0.6 mg/dL (0.6-1.3); POTASSIUM 3.9 mmol/L (3.5-5.1)
[2017-05-31 05:18] LABS: PHOSPHORUS 3.5 mg/dL (2.5-4.9)
[2017-05-31] MEDS: levETIRAcetam 1,000 MG in NACL 0.9% 100 ML IV SCH ×4 (05:27→23:51)
[2017-05-31] MEDS ORDERED: LACTULOSE 20 GM/30 ML UDC GT ONE (05:40)
[2017-05-31] MEDS: ALBUTEROL SULFATE/IPRATROPIU 3 ML SOL IH PRN ×2 (07:04→19:15)
[2017-05-31] MEDS: BLOOD GLUCOSE MONITORING 1 DEV DEV FS SCH ×4 (07:30→21:25)
[2017-05-31] MEDS: LACTULOSE 20 GM/30 ML UDC GT SCH ×2 (09:36→21:25)
[2017-05-31] MEDS: FERROUS SULFATE 300 MG/5 ML UDC GT SCH (09:37)
[2017-05-31] MEDS: ASCORBIC ACID 500 MG TAB GT SCH (09:38)
[2017-05-31] MEDS: LISINOPRIL 10 MG TAB GT SCH (09:38)
[2017-05-31] MEDS: THIAMINE 100 MG TAB GT SCH (09:38)
[2017-05-31] MEDS: GLYCOPYRROLATE 1 MG TAB GT SCH ×2 (09:38→21:26)
[2017-05-31] MEDS: ASPIRIN 81 MG TAB.CHEW PO SCH (09:39)
[2017-05-31] MEDS: METHIMAZOLE 5 MG TAB GT SCH ×2 (09:39→21:26)
[2017-05-31] MEDS: LANSOPRAZOLE 30 MG CAPDR GT SCH (09:39)
[2017-05-31] MEDS: PANTOPRAZOLE 40 MG INJ VIAL IVP SCH (09:40)
[2017-05-31] MEDS: PHENYTOIN 100 MG/2 ML VIAL IVP SCH ×2 (09:58→21:27)
[2017-05-31] MEDS ORDERED: PROBIOTIC SCREEN 1 EA MISC MC PRN (15:00)
[2017-05-31] MEDS: DEXTROSE 5% IV SCH (18:13)
[2017-05-31] MEDS: GENTAMICIN IV SCH (18:13)
[2017-05-31] MEDS: DEXT 5% /NACL 0.9% 1,000 ML IV SCH (20:00)
[2017-05-31] MEDS: ATORVASTATIN 20 MG TAB PO SCH (21:26)
[2017-06-01] VITALS (24 sets, daily range): BP systolic 99–151; BP diastolic 50–81
[2017-06-01 04:59] LABS: HEMOGLOBIN 8.7 g/dL (12.0-16.0); MEAN CORPUSCULAR HEMOGLOBIN 30 pg (27-31); MEAN CORPUSCULAR HGB CONC 32 g/dL (33-37); MEAN CORPUSCULAR VOLUME 93 fL (80-94); PLATELET COUNT (AUTO) 478 K/uL (140-450); RED BLOOD CELL COUNT(AUTO) 2.89 MIL/uL (4.20-5.40); RED CELL DISTRIBUTION WIDTH 15.4 % (11.6-13.7); WHITE BLOOD COUNT (AUTO) 6.8 K/uL (4.8-10.8)
[2017-06-01 05:11] LABS: ANION GAP 9.8 (8-16); CARBON DIOXIDE 28.7 mmol/L (21-32); CREATININE 0.6 mg/dL (0.6-1.3); POTASSIUM 3.5 mmol/L (3.5-5.1)
[2017-06-01] MEDS: METOCLOPRAMIDE 10 MG/10 ML SYRP UDC GT SCH ×3 (05:15→20:23)
[2017-06-01] MEDS: levETIRAcetam 1,000 MG in NACL 0.9% 100 ML IV SCH ×4 (05:16→23:41)
[2017-06-01 05:39] LABS: EOSINOPHILS % (MANUAL) 4 % (0-4); LYMPHOCYTES % (MANUAL) 29 % (20-46); MONOCYTES % (MANUAL) 6 % (5-12)
[2017-06-01] MEDS: ALBUTEROL SULFATE/IPRATROPIU 3 ML SOL IH PRN (07:37)
[2017-06-01] MEDS: BLOOD GLUCOSE MONITORING 1 DEV DEV FS SCH ×4 (07:58→20:25)
[2017-06-01] MEDS: FERROUS SULFATE 300 MG/5 ML UDC GT SCH (08:59)
[2017-06-01] MEDS: PANTOPRAZOLE 40 MG INJ VIAL IVP SCH (09:00)
[2017-06-01] MEDS: LACTULOSE 20 GM/30 ML UDC GT SCH ×2 (09:00→20:23)
[2017-06-01] MEDS: LISINOPRIL 10 MG TAB GT SCH (09:01)
[2017-06-01] MEDS: ASPIRIN 81 MG TAB.CHEW PO SCH (09:01)
[2017-06-01] MEDS: METHIMAZOLE 5 MG TAB GT SCH ×2 (09:01→20:24)
[2017-06-01] MEDS: LACTOBACILLUS RHAMNOSUS GG 1 EACH CAP PO SCH (09:01)
[2017-06-01] MEDS: ASCORBIC ACID 500 MG TAB GT SCH (09:01)
[2017-06-01] MEDS: GLYCOPYRROLATE 1 MG TAB GT SCH ×2 (09:01→20:24)
[2017-06-01] MEDS: THIAMINE 100 MG TAB GT SCH (09:02)
[2017-06-01] MEDS: LANSOPRAZOLE 30 MG CAPDR GT SCH (09:02)
[2017-06-01] MEDS: PHENYTOIN 100 MG/2 ML VIAL IVP SCH ×2 (09:06→20:24)
[2017-06-01] MEDS: DEXT 5% /NACL 0.9% 1,000 ML IV SCH (12:09)
[2017-06-01] MEDS ORDERED: ALTEPLASE 2 MG VIAL MC SCH (14:24)
[2017-06-01] MEDS ORDERED: NACL 0.9% 500 ML IV SCH (17:15)
[2017-06-01] MEDS ORDERED: SODIUM PHOSPHATE 118 ML ENEM RC SCH (17:25)
[2017-06-01] MEDS: DEXTROSE 5% IV SCH (18:47)
[2017-06-01] MEDS: GENTAMICIN IV SCH (18:47)
[2017-06-01] MEDS: ATORVASTATIN 20 MG TAB PO SCH (20:23)
[2017-06-02] VITALS (24 sets, daily range): BP systolic 76–127; BP diastolic 41–62
[2017-06-02] MEDS: METOCLOPRAMIDE 10 MG/10 ML SYRP UDC GT SCH ×3 (05:04→20:22)
[2017-06-02] MEDS: levETIRAcetam 1,000 MG in NACL 0.9% 100 ML IV SCH ×4 (05:06→23:30)
[2017-06-02 06:12] LABS: BASOPHILS # (AUTO) 0.2 K/uL (0.00-0.22); BASOPHILS % (AUTO) 2.1 % (0.0-2.0); EOSINOPHILS # (AUTO) 0.1 K/uL (0-0.4); EOSINOPHILS % (AUTO) 1.3 % (0.0-4.0); HEMATOCRIT 24.5 % (36-48); HEMOGLOBIN 8.1 g/dL (12.0-16.0); LYMPHOCYTES # (AUTO) 1.7 K/uL (2.5-16.5); MEAN CORPUSCULAR HEMOGLOBIN 31 pg (27-31); MEAN CORPUSCULAR HGB CONC 33 g/dL (33-37); MEAN CORPUSCULAR VOLUME 93 fL (80-94); MONOCYTES # (AUTO) 0.5 K/uL (0.8-1.0); MONOCYTES % (AUTO) 4.5 % (1.7-9.3); NEUTROPHILS # (AUTO) 7.8 K/uL (1.8-7.7); NEUTROPHILS % (AUTO) 76.1 % (42.2-75.2); PLATELET COUNT (AUTO) 432 K/uL (140-450); RED BLOOD CELL COUNT(AUTO) 2.64 MIL/uL (4.20-5.40); RED CELL DISTRIBUTION WIDTH 15.3 % (11.6-13.7); WHITE BLOOD COUNT (AUTO) 10.3 K/uL (4.8-10.8)
[2017-06-02 06:18] LABS: ANION GAP 8.3 (8-16); CARBON DIOXIDE 29.2 mmol/L (21-32); CREATININE 0.7 mg/dL (0.6-1.3); POTASSIUM 3.5 mmol/L (3.5-5.1)
[2017-06-02 06:42] LABS: PHENYTOIN (DILANTIN) 9.1 ug/ml (10.0-20.0)
[2017-06-02] MEDS: BLOOD GLUCOSE MONITORING 1 DEV DEV FS SCH ×4 (07:45→20:46)
[2017-06-02] MEDS: ASCORBIC ACID 500 MG TAB GT SCH (09:10)
[2017-06-02] MEDS: PANTOPRAZOLE 40 MG INJ VIAL IVP SCH (09:10)
[2017-06-02] MEDS: ASPIRIN 81 MG TAB.CHEW PO SCH (09:10)
[2017-06-02] MEDS: FERROUS SULFATE 300 MG/5 ML UDC GT SCH (09:11)
[2017-06-02] MEDS: PHENYTOIN 100 MG/2 ML VIAL IVP SCH ×2 (09:11→20:23)
[2017-06-02] MEDS: THIAMINE 100 MG TAB GT SCH (09:11)
[2017-06-02] MEDS: LISINOPRIL 10 MG TAB GT SCH (09:11)
[2017-06-02] MEDS: LACTOBACILLUS RHAMNOSUS GG 1 EACH CAP PO SCH (09:11)
[2017-06-02] MEDS: LACTULOSE 20 GM/30 ML UDC GT SCH ×2 (09:11→20:22)
[2017-06-02] MEDS: ZINC SULF 220 MG CAP GT SCH (09:12)
[2017-06-02] MEDS: METHIMAZOLE 5 MG TAB GT SCH ×2 (09:12→20:23)
[2017-06-02] MEDS: GLYCOPYRROLATE 1 MG TAB GT SCH ×2 (09:12→20:23)
[2017-06-02] MEDS: LANSOPRAZOLE 30 MG CAPDR GT SCH (09:12)
[2017-06-02] MEDS: NACL 0.9% 500 ML IV SCH (16:20)
[2017-06-02] MEDS: DEXTROSE 5% IV SCH (17:57)
[2017-06-02] MEDS: GENTAMICIN IV SCH (17:57)
[2017-06-02] MEDS: ATORVASTATIN 20 MG TAB PO SCH (20:22)
[2017-06-03] VITALS (23 sets, daily range): BP systolic 83–123; BP diastolic 41–66
[2017-06-03] MEDS: METOCLOPRAMIDE 10 MG/10 ML SYRP UDC GT SCH ×3 (04:56→20:18)
[2017-06-03] MEDS: levETIRAcetam 1,000 MG in NACL 0.9% 100 ML IV SCH ×4 (05:00→23:47)
[2017-06-03 05:27] LABS: ANION GAP 7.7 (8-16); CARBON DIOXIDE 29.1 mmol/L (21-32); CREATININE 0.6 mg/dL (0.6-1.3); POTASSIUM 3.8 mmol/L (3.5-5.1)
[2017-06-03 05:29] LABS: BASOPHILS # (AUTO) 0.3 K/uL (0.00-0.22); BASOPHILS % (AUTO) 3.4 % (0.0-2.0); EOSINOPHILS # (AUTO) 0.4 K/uL (0-0.4); EOSINOPHILS % (AUTO) 4.8 % (0.0-4.0); HEMATOCRIT 22.5 % (36-48); HEMOGLOBIN 7.6 g/dL (12.0-16.0); LYMPHOCYTES # (AUTO) 1.9 K/uL (2.5-16.5); LYMPHOCYTES % (AUTO) 19.8 % (20.5-51.1); MEAN CORPUSCULAR HEMOGLOBIN 31 pg (27-31); MEAN CORPUSCULAR HGB CONC 34 g/dL (33-37); MEAN CORPUSCULAR VOLUME 93 fL (80-94); MONOCYTES # (AUTO) 0.6 K/uL (0.8-1.0); MONOCYTES % (AUTO) 6.4 % (1.7-9.3); NEUTROPHILS # (AUTO) 6.2 K/uL (1.8-7.7); NEUTROPHILS % (AUTO) 65.6 % (42.2-75.2); PLATELET COUNT (AUTO) 357 K/uL (140-450); RED BLOOD CELL COUNT(AUTO) 2.43 MIL/uL (4.20-5.40); RED CELL DISTRIBUTION WIDTH 15.4 % (11.6-13.7); WHITE BLOOD COUNT (AUTO) 9.4 K/uL (4.8-10.8)
[2017-06-03 05:32] LABS: MAGNESIUM 2.1 mg/dL (1.8-2.4); PHOSPHORUS 3.1 mg/dL (2.5-4.9)
[2017-06-03] MEDS ORDERED: LACTULOSE 20 GM/30 ML UDC PO SCH (05:45)
[2017-06-03 06:02] LABS: PHENYTOIN (DILANTIN) 8.5 ug/ml (10.0-20.0)
[2017-06-03] MEDS: BLOOD GLUCOSE MONITORING 1 DEV DEV FS SCH ×4 (06:36→21:24)
[2017-06-03] MEDS ORDERED: PHENYTOIN 100 MG/2 ML VIAL IVP SCH (07:50)
[2017-06-03] MEDS: PANTOPRAZOLE 40 MG INJ VIAL IVP SCH (09:16)
[2017-06-03] MEDS: ASCORBIC ACID 500 MG TAB GT SCH (09:16)
[2017-06-03] MEDS: ASPIRIN 81 MG TAB.CHEW PO SCH (09:16)
[2017-06-03] MEDS: LANSOPRAZOLE 30 MG CAPDR GT SCH (09:16)
[2017-06-03] MEDS: LISINOPRIL 10 MG TAB GT SCH (09:17)
[2017-06-03] MEDS: METHIMAZOLE 5 MG TAB GT SCH ×2 (09:17→20:19)
[2017-06-03] MEDS: LACTOBACILLUS RHAMNOSUS GG 1 EACH CAP PO SCH (09:17)
[2017-06-03] MEDS: ZINC SULF 220 MG CAP GT SCH (09:17)
[2017-06-03] MEDS: THIAMINE 100 MG TAB GT SCH (09:17)
[2017-06-03] MEDS: LACTULOSE 20 GM/30 ML UDC GT SCH ×3 (09:18→17:16)
[2017-06-03] MEDS: FERROUS SULFATE 300 MG/5 ML UDC GT SCH (09:18)
[2017-06-03] MEDS: PHENYTOIN 100 MG/2 ML VIAL IVP SCH ×2 (09:18→20:19)
[2017-06-03] MEDS: GLYCOPYRROLATE 1 MG TAB GT SCH ×2 (09:18→20:19)
[2017-06-03] MEDS: NACL 0.9% 500 ML IV SCH (15:50)
[2017-06-03] MEDS: GENTAMICIN IV SCH (17:15)
[2017-06-03] MEDS: DEXTROSE 5% IV SCH (17:15)
[2017-06-03] MEDS: ATORVASTATIN 20 MG TAB PO SCH (20:18)
[2017-06-04] VITALS (24 sets, daily range): BP systolic 84–128; BP diastolic 45–69
[2017-06-04] MEDS: METOCLOPRAMIDE 10 MG/10 ML SYRP UDC GT SCH ×3 (05:26→20:55)
[2017-06-04] MEDS: levETIRAcetam 1,000 MG in NACL 0.9% 100 ML IV SCH ×4 (05:27→23:42)
[2017-06-04 05:35] LABS: CREATININE 0.6 mg/dL (0.6-1.3)
[2017-06-04 05:44] LABS: ANION GAP 8.3 (8-16); CARBON DIOXIDE 29.2 mmol/L (21-32); POTASSIUM 3.5 mmol/L (3.5-5.1)
[2017-06-04 05:59] LABS: BASOPHILS # (AUTO) 0.2 K/uL (0.00-0.22); BASOPHILS % (AUTO) 2.7 % (0.0-2.0); EOSINOPHILS # (AUTO) 0.5 K/uL (0-0.4); EOSINOPHILS % (AUTO) 5.7 % (0.0-4.0); HEMOGLOBIN 7.6 g/dL (12.0-16.0); LYMPHOCYTES # (AUTO) 1.9 K/uL (2.5-16.5); MEAN CORPUSCULAR HEMOGLOBIN 31 pg (27-31); MEAN CORPUSCULAR HGB CONC 33 g/dL (33-37); MEAN CORPUSCULAR VOLUME 93 fL (80-94); MONOCYTES # (AUTO) 0.5 K/uL (0.8-1.0); MONOCYTES % (AUTO) 5.8 % (1.7-9.3); NEUTROPHILS # (AUTO) 6.1 K/uL (1.8-7.7); NEUTROPHILS % (AUTO) 64.8 % (42.2-75.2); PLATELET COUNT (AUTO) 379 K/uL (140-450); RED BLOOD CELL COUNT(AUTO) 2.47 MIL/uL (4.20-5.40); RED CELL DISTRIBUTION WIDTH 15.5 % (11.6-13.7); WHITE BLOOD COUNT (AUTO) 9.2 K/uL (4.8-10.8)
[2017-06-04] MEDS: BLOOD GLUCOSE MONITORING 1 DEV DEV FS SCH ×4 (07:30→20:55)
[2017-06-04] MEDS: LACTULOSE 20 GM/30 ML UDC GT SCH ×3 (09:12→17:05)
[2017-06-04] MEDS: LACTOBACILLUS RHAMNOSUS GG 1 EACH CAP PO SCH (09:13)
[2017-06-04] MEDS: ZINC SULF 220 MG CAP GT SCH (09:13)
[2017-06-04] MEDS: FERROUS SULFATE 300 MG/5 ML UDC GT SCH (09:13)
[2017-06-04] MEDS: LISINOPRIL 10 MG TAB GT SCH (09:14)
[2017-06-04] MEDS: GLYCOPYRROLATE 1 MG TAB GT SCH ×2 (09:14→20:54)
[2017-06-04] MEDS: ASCORBIC ACID 500 MG TAB GT SCH (09:15)
[2017-06-04] MEDS: METHIMAZOLE 5 MG TAB GT SCH ×2 (09:16→20:54)
[2017-06-04] MEDS: LANSOPRAZOLE 30 MG CAPDR GT SCH (09:16)
[2017-06-04] MEDS: THIAMINE 100 MG TAB GT SCH (09:17)
[2017-06-04] MEDS: PANTOPRAZOLE 40 MG INJ VIAL IVP SCH (09:17)
[2017-06-04] MEDS: ASPIRIN 81 MG TAB.CHEW PO SCH (09:17)
[2017-06-04] MEDS: PHENYTOIN 100 MG/2 ML VIAL IVP SCH ×2 (12:59→20:54)
[2017-06-04] MEDS: NACL 0.9% 500 ML IV SCH (17:05)
[2017-06-04] MEDS: ATORVASTATIN 20 MG TAB PO SCH (20:55)
[2017-06-04] MEDS ORDERED: GENTAMICIN 350 MG in DEXTROSE 5% 100 ML IV SCH (21:00)
[2017-06-05] VITALS (13 sets, daily range): BP systolic 116–142; BP diastolic 62–75
[2017-06-05 04:56] LABS: HEMATOCRIT 29.1 % (36-48); HEMOGLOBIN 9.1 g/dL (12.0-16.0); MEAN CORPUSCULAR HEMOGLOBIN 29 pg (27-31); MEAN CORPUSCULAR HGB CONC 31 g/dL (33-37); MEAN CORPUSCULAR VOLUME 94 fL (80-94); PLATELET COUNT (AUTO) 474 K/uL (140-450); RED BLOOD CELL COUNT(AUTO) 3.12 MIL/uL (4.20-5.40); RED CELL DISTRIBUTION WIDTH 15.2 % (11.6-13.7); WHITE BLOOD COUNT (AUTO) 10.9 K/uL (4.8-10.8)
[2017-06-05] MEDS: METOCLOPRAMIDE 10 MG/10 ML SYRP UDC GT SCH (05:04)
[2017-06-05] MEDS: PHENYTOIN 100 MG/2 ML VIAL IVP SCH (05:05)
[2017-06-05] MEDS: levETIRAcetam 1,000 MG in NACL 0.9% 100 ML IV SCH (05:05)
[2017-06-05 05:10] LABS: ANION GAP 10.6 (8-16); CREATININE 0.7 mg/dL (0.6-1.3); POTASSIUM 3.6 mmol/L (3.5-5.1)
[2017-06-05] MEDS ORDERED: ACET-1182 PO (06:21)
[2017-06-05] MEDS ORDERED: VITC500 GT (06:21)
[2017-06-05] MEDS ORDERED: ASPI81CT95 PO (06:21)
[2017-06-05] MEDS ORDERED: METO5SOL20 GT (06:22)
[2017-06-05] MEDS ORDERED: BLOO1STR10 FS (06:22)
[2017-06-05] MEDS ORDERED: FER300L GT (06:22)
[2017-06-05] MEDS ORDERED: TAP5 GT (06:22)
[2017-06-05] MEDS ORDERED: LACT10SO11 GT (06:22)
[2017-06-05] MEDS ORDERED: LANS30EC68 GT (06:22)
[2017-06-05] MEDS ORDERED: THIA-8 GT (06:22)
[2017-06-05] MEDS ORDERED: PANT40PD7 IVP (06:22)
[2017-06-05] MEDS ORDERED: D50SYR IVP (06:22)
[2017-06-05] MEDS ORDERED: HUMSLIDE SUBQ (06:22)
[2017-06-05] MEDS ORDERED: ATOR20TA40 PO (06:22)
[2017-06-05] MEDS ORDERED: ONDA2SOL45 IM/IVP (06:22)
[2017-06-05] MEDS ORDERED: ZIN220 GT (06:22)
[2017-06-05] MEDS ORDERED: IPRA3AMP IH (06:22)
[2017-06-05] MEDS ORDERED: COL100L PO (06:22)
[2017-06-05] MEDS ORDERED: LISI10TA11 GT (06:22)
[2017-06-05] MEDS ORDERED: BISA10SU46 RC (06:22)
[2017-06-05] MEDS ORDERED: ROB1 GT (06:22)
[2017-06-05] MEDS ORDERED: DIL100I IVP (06:22)
[2017-06-05 06:46] LABS: LYMPHOCYTES % (MANUAL) 16 % (20-46); MONOCYTES % (MANUAL) 3 % (5-12)
[2017-06-05] MEDS: BLOOD GLUCOSE MONITORING 1 DEV DEV FS SCH ×2 (06:48→11:30)
[2017-06-05] MEDS: METHIMAZOLE 5 MG TAB GT SCH (09:00)
[2017-06-05] MEDS: LACTULOSE 20 GM/30 ML UDC GT SCH (09:00)
[2017-06-05] MEDS: FERROUS SULFATE 300 MG/5 ML UDC GT SCH (09:00)
[2017-06-05] MEDS: LACTOBACILLUS RHAMNOSUS GG 1 EACH CAP PO SCH (09:00)
[2017-06-05] MEDS: GLYCOPYRROLATE 1 MG TAB GT SCH (09:01)
[2017-06-05] MEDS: ZINC SULF 220 MG CAP GT SCH (09:01)
[2017-06-05] MEDS: ASCORBIC ACID 500 MG TAB GT SCH (09:01)
[2017-06-05] MEDS: LISINOPRIL 10 MG TAB GT SCH (09:02)
[2017-06-05] MEDS: ASPIRIN 81 MG TAB.CHEW PO SCH (09:02)
[2017-06-05] MEDS: PANTOPRAZOLE 40 MG INJ VIAL IVP SCH (09:03)
[2017-06-05] MEDS: LANSOPRAZOLE 30 MG CAPDR GT SCH (09:03)
[2017-06-05] MEDS: THIAMINE 100 MG TAB GT SCH (09:03)
[2017-06-05] MEDS ORDERED: Z-GUARD PASTE TP PRN ×2 (11:45→12:00)
== END 2017-06-05 13:00 | DRG 130 ==
LOC: MIC 21:25
PROVIDERS: ADMIT Family Medicine; ATTEND Family Medicine
PROC: 5A1955Z Respiratory Ventilation, Greater than 96 Consecutive Hours (ICD-10-PCS; principal; 2017-05-26)
DX: J96.21 Acute and chronic respiratory failure with hypoxia (principal); N17.0 Acute kidney failure with tubular necrosis; E43 Unspecified severe protein-calorie malnutrition; J18.9 Pneumonia, unspecified organism; D68.59 Other primary thrombophilia; I42.9 Cardiomyopathy, unspecified; F03.90 Unspecified dementia, unspecified severity, without behavioral disturbance, psychotic disturbance, mood disturbance, and anxiety; E11.51 Type 2 diabetes mellitus with diabetic peripheral angiopathy without gangrene; K22.10 Ulcer of esophagus without bleeding; J40 Bronchitis, not specified as acute or chronic; Z93.0 Tracheostomy status; K59.00 Constipation, unspecified; K74.60 Unspecified cirrhosis of liver; G40.909 Epilepsy, unspecified, not intractable, without status epilepticus; I10 Essential (primary) hypertension; K42.9 Umbilical hernia without obstruction or gangrene; E05.90 Thyrotoxicosis, unspecified without thyrotoxic crisis or storm; I35.0 Nonrheumatic aortic (valve) stenosis; E78.00 Pure hypercholesterolemia, unspecified; E87.6 Hypokalemia; E66.3 Overweight; K72.90 Hepatic failure, unspecified without coma; K56.7 Ileus, unspecified; B96.5 Pseudomonas (aeruginosa) (mallei) (pseudomallei) as the cause of diseases classified elsewhere; D53.9 Nutritional anemia, unspecified; Z68.29 Body mass index [BMI] 29.0-29.9, adult; Z98.2 Presence of cerebrospinal fluid drainage device; Z87.442 Personal history of urinary calculi; Z93.1 Gastrostomy status; Z88.8 Allergy status to other drugs, medicaments and biological substances; Z79.4 Long term (current) use of insulin; Z82.3 Family history of stroke; Z82.49 Family history of ischemic heart disease and other diseases of the circulatory system; Z88.0 Allergy status to penicillin; Z79.899 Other long term (current) drug therapy; Z79.82 Long term (current) use of aspirin; Z86.718 Personal history of other venous thrombosis and embolism; Z86.73 Personal history of transient ischemic attack (TIA), and cerebral infarction without residual deficits
CPT/HCPCS: 36415; 36600; 70450; 71010; 74000; 80048; 80053; 80170; 80185; 80202; 81001; 82140; 82803; 82948; 83735; 84100; 85025; 85610; 85730; 87040; 87070; 87081; 87086; 87186; 87205; 93970; 94003; 94640; C9113; J0692; J1165; J1580; J1815; J1953; J2997; J3370; J3480; J7030; J7042; J7060; J7620; J8597; Q0092

== ENCOUNTER 2017-06-06 05:00 | Inpatient (IN) | payer MEDICAID ==
[~2017-06-06] VITALS: Ht 165.1 cm; Wt 71.2 kg
[2017-06-06] VITALS (18 sets, daily range): BP systolic 85–122; BP diastolic 43–82
[~2017-06-06 05:00] MED LIST changes: +ACET-1182 PO; -ASCO500T45 GT; -ASPI81CT89 PO; +ASPI81CT95 PO; +ATOR20TA40 PO; -ATOR40TA PO; +BLOO1STR56 FS; +COL100L PO; +D50SYR IVP; +DIL100I IVP; +HUMSLIDE SUBQ; -METH-426 GT; +METO5SOL20 GT; +ONDA2SOL45 IM/IVP; +PANT40PD7 IVP; +TAP5 GT; +THIA-8 GT; -THIA100T34 GT; +VITC500 GT; +ZIN220 GT
--- NOTE | 2017-06-06 05:00 | NUR ---
COLEMAN (ALS) TO ER BED 4, Patient being evaluated by physician at bedside.
[2017-06-06] MEDS ORDERED: NACL 0.9% 1,000 ML IV ONE (05:10)
--- NOTE | 2017-06-06 05:10 | NUR ---
61 Y/O F BIBA FROM [facility] W/C/O SOB/PT VENT DEPENDENT, SATS AT SNF AT 85%, 5L O2 PLACED BY [facility], SATS INCREASED TO 95%. PT ON MONITOR, AND ON VENTILATOR. ER MD AT BEDSIDE EVALUATING PT, WELL RT.
--- NOTE | 2017-06-06 05:10 | NUR ---
PT ARRIVED WITH WEST CATH [address] 800 ML URINE OUTPUT NOTED, PICK LINE NOTED TO R UPPER ARM.
--- NOTE | 2017-06-06 05:20 | NUR ---
PT COME VIA AMBULATORY ,PLACED PT ON THE VENT, AC 14, VT 500 , PEEP 5, FIO2 28%, CHANGED TRACH MAURILIO CURIEL [facility]ME, SPUTUM CULTURE SEND TO THE LAB, SUCTION BROWN THICK SECRETION.
[2017-06-06] MEDS ORDERED: CLINDAMYCIN 900 MG in DEXTROSE 5% 100 ML IV ONE (05:50)
[2017-06-06] MEDS ORDERED: CLINDAMYCIN 900 MG/6 ML VIAL IV ONE (06:00)
[2017-06-06] MEDS ORDERED: PANTOPRAZOLE 40 MG INJ VIAL IVP ONE (06:05)
[2017-06-06 06:10] LABS: ANION GAP 13.9 (8-16); CARBON DIOXIDE 25.8 mmol/L (21-32); CREATININE 1.2 mg/dL (0.6-1.3); POTASSIUM 3.7 mmol/L (3.5-5.1)
[2017-06-06 06:14] LABS: HEMATOCRIT 33.9 % (36-48); HEMOGLOBIN 11.1 g/dL (12.0-16.0); MEAN CORPUSCULAR HEMOGLOBIN 31 pg (27-31); MEAN CORPUSCULAR HGB CONC 33 g/dL (33-37); MEAN CORPUSCULAR VOLUME 94 fL (80-94); PLATELET COUNT (AUTO) 585 K/uL (140-450); RED BLOOD CELL COUNT(AUTO) 3.61 MIL/uL (4.20-5.40); RED CELL DISTRIBUTION WIDTH 15.4 % (11.6-13.7); WHITE BLOOD COUNT (AUTO) 14.1 K/uL (4.8-10.8)
[2017-06-06] MEDS: LEVOFLOXACIN 500 MG/D5W PREMIX 100 ML IV ONE ×2 (06:14→06:35)
[2017-06-06 06:15] LABS: APPEARANCE,URINE HAZY (CLEAR); BILIRUBIN,URINE NEGATIVE (NEGATIVE); BLOOD, URINE NEGATIVE (NEGATIVE); COLOR,URINE YELLOW (YELLOW); LEUKOCYTE ESTERASE ,URINE TRACE (NEGATIVE); NITRITE, URINE NEGATIVE (NEGATIVE); UGLUCOSE NEGATIVE (NEGATIVE)
[2017-06-06 06:16] LABS: ALBUMIN 1.7 g/dL (3.4-5.0); TOTAL BILIRUBIN 0.2 mg/dL (0.0-1.0)
[2017-06-06 06:24] LABS: LYMPHOCYTES % (MANUAL) 14 % (20-46); MONOCYTES % (MANUAL) 2 % (5-12)
[2017-06-06] MEDS ORDERED: NACL 0.9% IV ONE (06:25)
[2017-06-06 06:36] LABS: RBC,URINE 0-5 (RARE) /HPF (0-5)
[2017-06-06 06:37] LABS: YEAST,URINE Few /HPF (None Seen)
[2017-06-06 06:38] LABS: COARSE GRANULAR CASTS,URINE 0-3 /LPF (None Seen)
--- NOTE | 2017-06-06 06:42 | NUR ---
PT RESTING IN BED, CURRENTLY RECEIVING FLUIDS, CONTINUES SLIGLTY TACHY. ER MD MADE AWARE. NO OTHER S/S OF DISTRESS.
[2017-06-06] MEDS ORDERED: NACL 0.9% 1,000 ML IV SCH (06:51)
[2017-06-06] MEDS ORDERED: ONDANSETRON 4 MG/2 ML VIAL IVP PRN (06:55)
[2017-06-06] MEDS ORDERED: HYDROcodone/APAP 7.5/325 MG 1 TAB PO PRN (06:55)
[2017-06-06] MEDS ORDERED: ACETAMINOPHEN 325 MG TAB PO PRN ×2 (06:55→07:15)
[2017-06-06] MEDS ORDERED: ALBUTEROL SULFATE/IPRATROPIU 3 ML SOL IH PRN ×2 (07:00→07:15)
--- NOTE | 2017-06-06 07:02 | NUR ---
Patient will be admitted to care of [facility]. Admited to ICU. Will go to room ICU 1. Belongings list completed. Report to MINOR HOGAN.
[2017-06-06] MEDS ORDERED: INSULIN LISPRO SLIDING SCALE 100 UNITS/ML VIAL SUBQ PRN ×2 (07:15→09:55)
[2017-06-06] MEDS ORDERED: ONDANSETRON 4 MG/2 ML VIAL IM/IVP PRN (07:15)
[2017-06-06] MEDS ORDERED: BISACODYL 10 MG SUPP RC PRN (07:15)
[2017-06-06] MEDS ORDERED: DOCUSATE 100 MG/10 ML UDC PO PRN (07:15)
[2017-06-06] MEDS ORDERED: DEXTROSE 50% 50 ML SYR IVP PRN ×2 (07:15→09:55)
--- NOTE | 2017-06-06 07:20 | NUR ---
PT TRANSFERED TO ICU 1 VIA GURNEY. ACCOMPANIED BY RT, TWO RNs AND EMT. NO S/S OF DISTRESS NOTED DURING TRANSFER.
--- NOTE | 2017-06-06 07:22 | NUR ---
RECIVED PT ON VENT IN ER WITH SETTINGS CHARTED TRACHED WITH PORTEX 7 TRANSFERED PT TO ICU BED 1 VIA AMBU BAG PLACED PT BACK ON VENT WITH SETTINGS CHARTED BREATHSOUNDS PRESENT BILAT RHONCHI SXN PT WITH MIN TO MOD AMT BROWNISH SECS PT QUIET NO RESP DISTRESS NOTE TRAH SITE CHECKED TRACH IN GOOD POSITION
[2017-06-06 07:27] LABS: CHOL/HDL RATIO 2.3 (1-4.5); MAGNESIUM 2.5 mg/dL (1.8-2.4); PHOSPHORUS 4.4 mg/dL (2.5-4.9)
[2017-06-06] MEDS ORDERED: BLOOD GLUCOSE MONITORING 1 DEV DEV FS SCH ×2 (07:30→11:30)
--- NOTE | 2017-06-06 07:30 | NUR ---
PT RECEIVED FROM ER VIA [place] WITH ER NURSE MADHURI. TRANSEFEREDC PT TO ICU BED 1 SAFELY. PT ON TRACH TO VENT. PT WITH NG TUBE IN PLACE IN LEFT NOSTRIL WITH COFFE BROWN EMESIS IN NG TUBE AND IN MOUTH. PT NOTED WITH S/P SURGERY ON HEAD FRONTAL PART WITH SUTURES AND BEHIND EAR. SKIN DRY AND WARM TO TOUCH. LUNGS SOUND CLEAR AND DEMINISHED UP ON AUSCULTATION. DOUBLE LUMEN PICC LINE IN PLACE ON MARIEL, RUNNING 0.9% NS BOLUS @ 999ML/R AND 0.9 % NS @ 100 ML/HR. GTUBE IN PLACE. NOTED 3 SURGICAL INCISIONS ON ABDOMINAL AREA HEALING. ABDOMEN SOFT AND NON-TENDER. HYPOACTIVE BOWEL SOUNDS PRESENT ON ALL FOUR QUADRANTS. REDNESS NOTED ON RIGHT BREAST AND RIGHT UPPER BACK, NOT OPENED. SACRO COCCYX OPEN NOTED. WOUND F/C IN PLACE DRAINING YELLOW URINE IN BAG. EDEMA NOTED ON BUE AND BLE. WILL CONTINUE TO MONITOR.
--- NOTE | 2017-06-06 07:31 | NUR ---
TRANSP-ORTED PATIENT FROM ER VIA AMBU BAG TO BED ICU 1 PLACED ON VENT WITH SETTINGS CHARTED. bREATHS SOUNDS PRESENT BILAT RHONCI SUCTIONED PATIENT WITH MILD MODEARTE AMOUNT BROWN SECRETIONS. PATIENT TRACHED WITH PORTEX 7. pATIENT RESTING COMFORTABLY TRACH IN PROPER POSITION AMBU BAG AT BEDSIDE AND VENT PLUGGED INTO RED PLUG WILL CONTINUE TO MONITOR PATIENT
--- NOTE | 2017-06-06 07:45 | NUR ---
PT ON VENT SETTING AC MODE 14 FIO2 28 VT 500 PEEP 5
--- NOTE | 2017-06-06 07:45 | NUR ---
ORAL CARE PROVIDED. ORAL MUCOSA PINK AND MOIST. KEPT HOB AT 30 DEGREE. OFF LOADED BOTH HEELS.
--- NOTE | 2017-06-06 08:00 | NUR ---
DECREASED REGULAR IVF RATE TO 50 ML/HR.
[2017-06-06] MEDS ORDERED: DOCUSATE SODIUM 100 MG GELCAP PO SCH (09:00)
[2017-06-06] MEDS: LISINOPRIL 10 MG TAB GT SCH (09:00)
[2017-06-06] MEDS ORDERED: PANTOPRAZOLE 40 MG INJ VIAL IVP SCH (09:00)
[2017-06-06] MEDS: LACTULOSE 20 GM/30 ML UDC GT SCH ×3 (09:00→16:36)
[2017-06-06] MEDS ORDERED: LANSOPRAZOLE 30 MG CAPDR GT SCH ×2 (09:00)
[2017-06-06] MEDS: DOCUSATE SODIUM 100 MG GELCAP PO SCH ×2 (09:00→20:56)
[2017-06-06] MEDS: ASCORBIC ACID 500 MG TAB GT SCH (09:00)
[2017-06-06] MEDS: ZINC SULF 220 MG CAP GT SCH (09:00)
[2017-06-06] MEDS ORDERED: ASPIRIN 81 MG TAB.CHEW PO SCH (09:00)
[2017-06-06] MEDS: THIAMINE 100 MG TAB GT SCH (09:00)
[2017-06-06] MEDS: METHIMAZOLE 5 MG TAB GT SCH ×2 (09:00→20:56)
[2017-06-06] MEDS ORDERED: FERROUS SULFATE 325 MG TABEC PO SCH (09:00)
[2017-06-06] MEDS: FERROUS SULFATE 300 MG/5 ML UDC GT SCH (09:38)
[2017-06-06] MEDS: GLYCOPYRROLATE 1 MG TAB GT SCH ×2 (09:39→20:56)
--- NOTE | 2017-06-06 10:00 | NUR ---
REPOSITIONING DONE. PT RESTING IN BED COMFORTABLY.
[2017-06-06] MEDS ORDERED: ALBUTEROL SULFATE/IPRATROPIU 3 ML SOL IH SCH (12:00)
--- NOTE | 2017-06-06 12:00 | NUR ---
REPOSITIONING DONE. COFFEE GROUND EMESIS STILL COMING FROM MOUTH. CHARGE NURSE MADE AWARE.
--- NOTE | 2017-06-06 12:00 | NUR ---
BODY TEMPERATURE WAS 1OO.6. EXTRA CLOTHES REMOVED. ICE PACKS APPLIED TO AXILLA. SPONGE BATH GIVEN.
--- NOTE | 2017-06-06 12:30 | NUR ---
BODY TEMPERATURE REDUCED TO 99.1
[2017-06-06] MEDS ORDERED: METOCLOPRAMIDE 10 MG/10 ML SYRP UDC GT SCH (13:00)
[2017-06-06] MEDS: METOCLOPRAMIDE 10 MG/2 ML INJ VIAL IVP SCH ×2 (13:19→20:57)
[2017-06-06] MEDS: PHENYTOIN 100 MG/2 ML VIAL IVP SCH ×2 (13:20→20:57)
[2017-06-06] MEDS: CLINDAMYCIN 600 MG in DEXTROSE 5% 50 ML IV SCH ×2 (13:21→21:17)
[2017-06-06] MEDS: ALBUTEROL SULFATE/IPRATROPIU 3 ML SOL IH SCH ×2 (13:28→18:50)
--- NOTE | 2017-06-06 14:00 | NUR ---
REPOSITIONING DONE. PT SLEEPING IN BED COMFORTABLY. PT KEPT CLEAN AND DRY.
--- NOTE | 2017-06-06 14:19 | NUR ---
VENOUS ULTRASOUND FOR LOWER EXTREMITIES DONE BY RADIOLOGY.
[2017-06-06] MEDS: NYSTATIN/TRIAMCINOLONE CRM 15 GM TUBE TP SCH ×2 (14:58→20:57)
[2017-06-06] MEDS: Z-GUARD PASTE TP SCH (14:58)
[2017-06-06] MEDS: DEXT 5% / NACL 0.45% 1,000 ML IV SCH ×2 (15:00→20:45)
[2017-06-06] MEDS ORDERED: FLUCONAZOLE 200 MG/NS PREMIX 100 ML IV SCH (15:15)
--- NOTE | 2017-06-06 15:21 | NUR ---
CM NOTE PER RONALDO FROM [facility], PATIENT IS ON A BED HOLD AND WILL BE ABLE TO TAKE PATIENT BACK ONCE DISCHARGED.
--- NOTE | 2017-06-06 15:21 | NUR ---
RECEIVED ORDER TO CONTINUE NPO EXCEPT MEDICINES.
[2017-06-06] MEDS ORDERED: FERRIC GLUCONATE 125 MG in NACL 0.9% 100 ML IV SCH ×2 (16:30→18:30)
[2017-06-06] MEDS: BLOOD GLUCOSE MONITORING 1 DEV DEV FS SCH (18:33)
[2017-06-06] MEDS: levETIRAcetam 1,000 MG in NACL 0.9% 100 ML IV SCH (18:38)
--- NOTE | 2017-06-06 19:30 | NUR ---
RECEIVED REPORT FROM YOAN RN AND ANNA RN AT BEDSIDE, PT IS DROWSY, OPEN EYES WHEN SHAKING, NON-VERBAL, LEFT HEAD DEFORMITY NOTED, TRACH TO VENT WITH FIO2 28, RR 14, TV 500, PEEP 5, CLEAR LUNG SOUNDS, NGT PLACED ON LEFT NARES, POSITIVE PLACEMENT WITH LWIS AND COFFEE GROUND EMESIS NOTED, NPO EXCEPT MEDS AT THIS TIME ORDERED. SR ON CATTLE KNOCKER. LARGE SOFT ROUND ABDOMEN WITH ACTIVE BOWEL SOUNDS, GT IN PLACE WITH 0ML RESIDUAL, ABDOMINAL HERNIA NOTED. WEST CATHETER IN PLACE WITH YELLOW COLORED URINE, DRAINING WELL VIA GRAVITY, GENERALIZED +2 PITTING EDEMA NOTED, BEDBOUND. PICC LINE TO RIGHT UPPER ARM WITH DOUBLE LUMEN WITH GOOD BLOOD RETURN, RUNNING D51/2NS AT 115 ML/HR. SKIN IS WARM AND DRY TO TOUCH, OPEN WOUND PRESENT, SEE WOUND CARE ASSESSMENT, VSS, FLACC 0. SAFETY MEASURE AND SEIZURE PRECAUTION IN PLACE, HOB ELEVATED TO 30 DEGREES, WILL CONTINUE TO MONITOR.
--- NOTE | 2017-06-06 20:00 | NUR ---
PATIENT TAKEN TO RADIOLOGY FOR CT HEAD WITHOUT CONTRAST AT 193, BACK TO ICU AT THIS TIME.
--- NOTE | 2017-06-06 20:15 | NUR ---
VSS. NO CHANGE OF CONDITION AT THIS TIME, ORAL CARE PROVIDED, POSITION CHANGED FOR OFF LOAD PRESSURE.
[2017-06-06] MEDS: ATORVASTATIN 20 MG TAB PO SCH (20:57)
--- NOTE | 2017-06-06 21:15 | NUR ---
DR. DUARTE (RESIDENT) INFORMED THAT CT HEAD RESULT ALREADY IN THE [facility], SHE SAID THAT SHE'S READING THE RESULT NOW. PER DR. DUARTE, PATIENT NOT TO BE ON CONTACT ISOLATION, [facility] CHIEF COLONIZED ALREADY AND THAT ISOLATION WAS DISCONTINUED BEFORE PATIENT WAS DISCHARGED TO [facility] [place]. DR. DUARTE INFORMED ALSO THAT PATIENT NEEDS WOUND CONSULT.
[2017-06-06] MEDS ORDERED: CLINDAMYCIN 600 MG/4 ML VIAL ONE (21:16)
--- NOTE | 2017-06-06 22:00 | NUR ---
NO S/S OF DISTRESS, VSS, POSITION CHANGED FOR OFF LOAD PRESSURE.
[2017-06-07] VITALS (24 sets, daily range): BP systolic 91–119; BP diastolic 44–113
--- NOTE | 2017-06-07 | NUR ---
VSS, NO CHANGE OF CONDITION AT THIS TIME, ORAL CARE PROVIDED, POSITION CHANGED FOR OFF LOAD PRESSURE.
[2017-06-07] MEDS: Z-GUARD PASTE TP SCH ×2 (01:13→12:43)
[2017-06-07] MEDS ORDERED: levETIRAcetam 100 MG/ML VIAL IV ONE ×2 (01:16→12:06)
--- NOTE | 2017-06-07 02:00 | NUR ---
NO S/S OF DISTRESS, VSS, POSITION CHANGED FOR OFF LOAD PRESSURE.
[2017-06-07] MEDS ORDERED: CLINDAMYCIN 600 MG/4 ML VIAL ONE (03:32)
--- NOTE | 2017-06-07 04:00 | NUR ---
VSS, AM CARE AND ORAL CARE PROVIDED, WEST CATHETER CARE PROVIDED, POSITION CHANGED FOR OFF LOAD PRESSURE.
[2017-06-07] MEDS: BLOOD GLUCOSE MONITORING 1 DEV DEV FS SCH ×4 (05:46→18:37)
[2017-06-07] MEDS: METOCLOPRAMIDE 10 MG/2 ML INJ VIAL IVP SCH ×3 (05:48→21:36)
[2017-06-07] MEDS: PHENYTOIN 100 MG/2 ML VIAL IVP SCH ×2 (05:48→12:43)
[2017-06-07] MEDS: levETIRAcetam 1,000 MG in NACL 0.9% 100 ML IV SCH ×6 (05:49→23:58)
[2017-06-07] MEDS: DEXT 5% / NACL 0.45% 1,000 ML IV SCH ×2 (05:49→14:48)
[2017-06-07] MEDS: CLINDAMYCIN 600 MG in DEXTROSE 5% 50 ML IV SCH ×3 (05:49→21:41)
[2017-06-07] MEDS: LEVOFLOXACIN 750 MG/D5W PREMIX 150 ML IV SCH (05:52)
[2017-06-07 05:55] LABS: ANION GAP 9.5 (8-16); CARBON DIOXIDE 26.5 mmol/L (21-32); CREATININE 0.8 mg/dL (0.6-1.3)
--- NOTE | 2017-06-07 06:00 | NUR ---
NO S/S OF DISTRESS, NO CHANGED OF CONDITION AT THIS TIME, VSS. POSITION CHANGED FOR OFF LOAD PRESSURE.
[2017-06-07 06:11] LABS: PHOSPHORUS 2.9 mg/dL (2.5-4.9)
[2017-06-07 06:23] LABS: MEAN CORPUSCULAR HEMOGLOBIN 30 pg (27-31); MEAN CORPUSCULAR HGB CONC 32 g/dL (33-37); MEAN CORPUSCULAR VOLUME 93 fL (80-94); PLATELET COUNT (AUTO) 346 K/uL (140-450); RED BLOOD CELL COUNT(AUTO) 2.68 MIL/uL (4.20-5.40); RED CELL DISTRIBUTION WIDTH 15.1 % (11.6-13.7); WHITE BLOOD COUNT (AUTO) 11.3 K/uL (4.8-10.8)
[2017-06-07 06:29] LABS: EOSINOPHILS % (MANUAL) 2 % (0-4); LYMPHOCYTES % (MANUAL) 10 % (20-46); MONOCYTES % (MANUAL) 5 % (5-12)
--- NOTE | 2017-06-07 06:59 | NUR ---
WEST CATHETER INSERTED, PATIENT TOLERATED PROCEDURE WELL.
[2017-06-07] MEDS: ALBUTEROL SULFATE/IPRATROPIU 3 ML SOL IH SCH ×3 (07:07→19:40)
--- NOTE | 2017-06-07 07:17 | NUR ---
RECEIVED TRACH PT PORTEX 7 ON VENT. SETTINGS AC 14, VT 500, PEEP 5 AND FIO2 28%. PT SUCTIONED OBTAINED MODERATE AMOUNT OF THICK YELLOW SECRETIONS, AIRWAY IS PATENT AND TRACH IS SECURE. VENT ALARMS ARE ON AND FUNCTIONING AND VENT IS PLUGGED INTO RED OUTLET. AMBU BAG IS PRESENT AT BEDSIDE. PT IS NOT IN RESPIRATORY DISTRESS, ASLEEP IN BED BUT DOES OPEN EYES. WILL CONTINUE TO MONITOR.
--- NOTE | 2017-06-07 07:25 | NUR ---
RECEIVED REPORT FROM NIGHT NURSE. PT IS LETHARGIC, OPENS EYES UPON GENTLE SHAKING. NORMAL SINUS RHYTHM ON MONITOR. TRACH TO VENT: AC 14, FIO2 28%, VT 500, PEEP 5. CLEAR LUNG SOUNDS BILATERALLY. NGT PLACED ON LEFT NARE, POSITIVE PLACEMENT, CONNECTED TO CONTINUOUS SUCTIONING, COFFEE GROUND EMESIS NOTED. PICC LINE TO RIGHT UPPER ARM INTACT AND PATENT, RUNNING ORDERED IV FLUID. ABDOMEN SOFT, BOWEL SOUNDS ACTIVE, ABDOMINAL HERNIA NOTED. GT IN PLACE, 0 RESIDUAL, POSITIVE PLACEMENT. WEST CATH IN PLACE DRAINING URINE TO GRAVITY DRAINAGE BAG. GENERALIZED 2+ EDEMA NOTED. SKIN IS DRY AND WARM TO TOUCH. FLACC 0. HOB 30 DEGREES, BED IN LOWEST POSITION. SAFETY MEASURES ENSURE. WILL CONTINUE TO MONITOR.
--- NOTE | 2017-06-07 07:28 | NUR ---
REPORT GIVEN TO MINOR CAMARILLO AT BEDSIDE FOR CONTINUE OF CARE, PT IS IN STABLE CONDITION AT THIS TIME, VSS.
--- NOTE | 2017-06-07 08:05 | NUR ---
DR. KISER AND RESIDENT GROUP IN TO SEE PT. RESIDENT DR. SANTIAGO MADE AWARE OF POTASSIUM LEVEL OF 3.0 AND HGB 8.0. WILL FOLLOW UP ON NEW ORDERS.
[2017-06-07] MEDS ORDERED: POTASSIUM CHLORIDE 20% 40 MEQ/15 ML UDC GT SCH (09:00)
[2017-06-07] MEDS ORDERED: PANTOPRAZOLE 40 MG INJ VIAL IVP SCH (09:00)
[2017-06-07] MEDS ORDERED: KCL 20 MEQ/WATER INJ PREMIX 200 ML IV SCH (09:00)
--- NOTE | 2017-06-07 09:22 | NUR ---
WOUND CARE RE-EVALUATION NOTES: REASON FOR EVALUATION: SACRALCOCCYX WOUND, LOW LUIS SCALE COMPLETE SKIN ASSESSMENT DONE ON THIS 61Y/O FEMALE PAT[place] [facility] [place] [facility], WITH ALOC AND SOB. PAST MEDICAL HISTORY INCLUDE CVA WITH ICH, DIABETES, HYPERTENSION SEIZURE DISORDERS AND DEMENTIA. ALL ABOVE INFORMATION WAS OBTAINED FROM THE ADMISSION H&P. CURRENT MEDS INCLUDE LEVOFLOXACIN , CLINDAMYCIN, DILANTIN, ALBUTEROL, REGLAN AND LIPITOR. WBC 11.3, H/H 8.0/25, GLUCOSE 124, ALBUMIN 1.7, PT/INR 10.0/1.0 AND PTT 24.3. PATIENT IS NON-VERBAL. SKIN WARM TO TOUCH WNL, RIGHT FRONTAL BULGING WITH INTRACRANIAL FLUIDS, THICKENED TOENAILS, NO HAIR GROWTH BLE AND BILATERAL PEDAL PULSES PRESENT. GT IN PLACE NO TF AT THIS TIME. NG SUCTION WITH COFFEE GROUND FLUIDS RETURN. PICC LINE RIGHT UPPER ARM, #16 WEST CATHETER PATENT AND INTACT TO CLEAR YELLOW COLORED URINE IN MODERATE AMOUNT. NEEDS ASSISTANCE IN TURNING. PLAN OF CARE AND PRESSURE PREVENTIVE MEASURES DISCUSSED PRIMARY NURSE. INTEGUMENTARY: MARIEL GEOVANY LINE, SITE DRY AND CLEAN WITH DRESSING CDI LEFT FRONTAL AND LEFT BEHIND EAR S/P MULTIPLES STABLES REMOVED AREAS DRY AND CLEAN NO S/S INFECTION LOWER ABD, 3 DRY SCABS S/P AV SHUNT PLACEMENT SITE CLEAN AND NO S/S INFECTION HX OF CRANIOTOMY TO RIGHT TEMPORAL, SCALP SKIN INTACT, NON-BULGED TRACHEOSTOMY STOMA SITE CLEAN AND SURROUNDING SKIN INTACT LUQ AND GT STOMA SITE CLEAN AND SURROUNDING SKIN INTACT MID ABDOMEN CHRONIC HERNIA UPPER CHEST MULTIPLE ECCHYMOSIS WITH LARGEST MEASURE 2X3CM ABDOMINAL FOLDS AND GROINS MOISTURE ASSOCIATE DERMATITIS SACRALCOCCYX PRESSURE ULCER STAGE II 5X3.5X0.1 CM NO DRAINAGE, NO ODOR, SURROUNDING REDNESS AREA 5X6 CM INDICATE FURTHER DAMAGE BILATERAL HEELS BLANCHABLE REDNESS RECOMMENDATIONS: -UPPER CHEST ECCHYMOSIS KEEP DRY AND CLEAN APPLY OPTIFORM PRN TO PREVENT IRRITATION FROM TRACH TUBING -KEEP LEFT FRONTAL AND LEFT BEHIND EAR AREAS DRY AND CLEAN 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 PAT DRY, APPLY Z GUARD AND COVER WITH OPTIFORM QD AND PRN IF SOILING - CLEAN ABDOMINAL FOLDS AND GROINS AREAS WITH SOAP AND WATER, PAT DRY APPLY INTERDRY QD AND CHANGE INTERDRY Q7 DAYS -TURN AND REPOSITION PATIENT Q2H TO LEFT AND RIGHT SIDE ONLY TO OFFLOAD SACRALCOCCYX -ASSESS AND MONITOR SKIN CONDITION DURING POSITION CHANGE, PLEASE PAY ATTENTION TO SACRALCOCCYX AND HEELS -OFFLOAD BILATERAL HEELS BY PLACING PILLOWS UNDER CALVES AT ALL TIMES, UNLESS OTHERWISE CONTRAINDICATED -PRESSURE REDISTRIBUTION SURFACE THERAPY -KEEP SKIN CLEAN AND DRY AT ALL TIMES. COMORBIDITIES RELATED TO SKIN BREAK DOWN: HX OF PRESSURE ULCER, CHRONIC BOWEL AND BLADDER INCONTINENT, DM, IMPAIRED MOBILITY, COGNITIVE IMPAIRMENT AND HOB ELEVATED THE MAJORITY OF THE DAY FOR MEDICAL CONDITION RECOMMENDATIONS DISCUSSED WITH PRIMARY RN WILL FOLLOW UP PATIENT Q 7 -10 DAYS AND PRN. PLEASE CONTACT WOUND CARE NURSE FOR ANY CONCERNS AND CHANGES IN WOUND CONDITION Addendum: 06/07/17 at 1023 by Miguel Jaime (Grace) RN CORRECTION: HX OF CRANIOTOMY TO RIGHT TEMPORAL, SCALP SKIN INTACT, BULGED. RECOMMENDATIONS DISCUSSED WITH DR. SANTIAGO WILL CONTINUE ON NYSTATIN OINT, NO INTERDRY AT THIS TIME
[2017-06-07] MEDS: ZINC SULF 220 MG CAP GT SCH (09:23)
[2017-06-07] MEDS: LACTULOSE 20 GM/30 ML UDC GT SCH ×3 (09:23→17:11)
[2017-06-07] MEDS: LISINOPRIL 10 MG TAB GT SCH (09:23)
[2017-06-07] MEDS: FERROUS SULFATE 300 MG/5 ML UDC GT SCH (09:23)
[2017-06-07] MEDS: DOCUSATE SODIUM 100 MG GELCAP PO SCH (09:24)
[2017-06-07] MEDS: THIAMINE 100 MG TAB GT SCH (09:24)
[2017-06-07] MEDS: ASCORBIC ACID 500 MG TAB GT SCH (09:24)
[2017-06-07] MEDS: GLYCOPYRROLATE 1 MG TAB GT SCH ×2 (09:25→21:37)
[2017-06-07] MEDS: METHIMAZOLE 5 MG TAB GT SCH ×2 (09:25→21:39)
[2017-06-07] MEDS ORDERED: PROBIOTIC SCREEN 1 EA MISC MC PRN (09:25)
--- NOTE | 2017-06-07 09:30 | NUR ---
DR. ENRIQUE IN TO SEE PT. WILL FOLLOW UP ON ORDERS.
[2017-06-07 09:41] LABS: FOLIC ACID 16.3 ng/mL (>3.0)
--- NOTE | 2017-06-07 09:50 | NUR ---
ADMINISTERED MEDS ORDERED. PT TOLERATED WELL. WILL CONTINUE TO MONITOR.
[2017-06-07] MEDS: NYSTATIN/TRIAMCINOLONE CRM 15 GM TUBE TP SCH ×2 (09:52→21:00)
--- NOTE | 2017-06-07 10:20 | NUR ---
SON-IN-LA[place], ALBERT, CAME AND VISITED, WAS GIVEN UPDATE ON PT. ALBERT ALSO SPOKE WITH DR. SANTIAGO.
--- NOTE | 2017-06-07 11:50 | NUR ---
PT SUCTIONED OBTAINED MODERATE AMOUNT OF THICK YELLOW SECRETIONS, AIRWAY IS PATENT, TRACH IS SECURE. WILL CONTINUE TO MONITOR.
--- NOTE | 2017-06-07 14:35 | NUR ---
DR. RODRÍGUEZ IN TO SEE PT. WILL FOLLOW UP ON ORDERS.
--- NOTE | 2017-06-07 14:49 | NUR ---
06/07/17 RD INITIAL ASSESSMENT COMPLETED PLEASE REFER TO NUTRITION ASSESSMENT UNDER CARE ACTIVITY FOR ESTIMATED NUTRITIONAL NEEDS. 1. CONTINUE NPO MEDICALLY NECESSARY PER MD 2. WHEN MEDICALLY CLEARED CONSIDER NUTRITION SUPPORT VIA GTUBE: NUTREN PULMONARY AT 10 ML/HR AND ADVANCE TOLERATED 10 ML Q6H TO GOAL OF 60 ML/HR -AT GOAL THIS PROVIDES 1440 ML, 2160 KCAL, 98 GM PROTEIN TO MEET 100% OF PT ESTIMATED KCAL AND PROTEIN NEEDS 3. RD TO FOLLOW-UP 2-3 DAYS, HIGH RISK MARY AMEZQUITA RD
[2017-06-07] MEDS ORDERED: MAGNESIUM CITRATE 300 ML BTL PO SCH (15:00)
--- NOTE | 2017-06-07 15:09 | NUR ---
DR. MARQUIS IN TO SEE PT. WILL FOLLOW UP WITH NEW ORDERS.
--- NOTE | 2017-06-07 15:22 | NUR ---
NGT DISCONTINUED AND G-TUBE CONNECTED TO GRAVITY DRAINAGE BAG PER ORDER. PT TOLERATED WELL. WILL CONTINUE TO MONITOR.
--- NOTE | 2017-06-07 15:59 | NUR ---
PT SUCTIONED OBTAINED MODERATE AMOUNT OF THICK SECRETIONS. AIRWAY IS PATENT AND TRACH IS SECURE. AREA AROUND STOMA CLEANED, REDNESS IS PRESENT. WILL CONTINUE TO MONITOR.
--- NOTE | 2017-06-07 16:55 | NUR ---
NO CHANGE OF CONDITION AT THIS TIME. VITAL SIGNS STABLE. REPOSITIONED TO OFF LOAD PRESSURE. SAFETY MEASURES ENSURE. WILL CONTINUE TO MONITOR.
[2017-06-07] MEDS: SENNA 8.6 MG TAB PO SCH (17:11)
--- NOTE | 2017-06-07 17:40 | NUR ---
VENT CHECK COMPLETED. PT REMAINS ON DOCUMENTED SETTINGS NO CHANGES MADE AT THIS TIME. VENT ALARMS REMAIN AND FUNCTIONING. TRACH REMAINS SECURE. PT NOT SOB AND NOT IN RESPIRATORY DISTRESS.
[2017-06-07 18:27] LABS: ANION GAP 13.6 (8-16); CARBON DIOXIDE 22.9 mmol/L (21-32); CREATININE 0.8 mg/dL (0.6-1.3); POTASSIUM 3.5 mmol/L (3.5-5.1)
--- NOTE | 2017-06-07 18:30 | NUR ---
CLEANED AND REPOSITIONED PT. NO SOB OR ANY OTHER SIGNS OF ACUTE DISTRESS NOTED. HOB 30 DEGREES. WILL CONTINUE TO MONITOR.
--- NOTE | 2017-06-07 19:28 | NUR ---
REPORT GIVEN TO NIGHT NURSE. PT IS IN STABLE CONDITION.
--- NOTE | 2017-06-07 19:30 | NUR ---
RECEIVED ENDORSEMENT FROM VERONICA GAXIOLA. PATIENT IS NONVERBAL, WITHDRAWS FROM PAIN, AND EYES DO NOT TRACK. PATIENT UNABLE TO FOLLOW SIMPLE COMMANDS. PATIENT IS TRACH TO VENT WITH SETTINGS OF FIO 28%, TV 500, AC 14, AND PEEP 5. THERE IS A G-TUBE IN PLACE DRAINING TO GRAVITY BAG AT BEDSIDE. WEST CATHETER IN PLACE DRAINING TO GRAVITY WITH MODERATE AMOUNT OF YELLOW URINE NOTED. THERE IS A DOUBLE LUMEN PICC IN THE MARIEL WITH D51/2NS RUNNING AT 60 ML/HR. SITE IS DRY, INTACT, AND ASYMPTOMATIC. SCDS IN PLACE FOR VTE PROPHYLAXIS. HOB AT 30 DEGREES WITH BED IN LOW POSITION. WILL CONTINUE TO MONITOR PATIENT.
[2017-06-07] MEDS: PANTOPRAZOLE 40 MG INJ VIAL IVP SCH (21:35)
[2017-06-07] MEDS: ATORVASTATIN 20 MG TAB PO SCH (21:36)
[2017-06-07] MEDS: PHENYTOIN 100 MG/4 ML UDC GT SCH (21:36)
[2017-06-07] MEDS: POTASSIUM CHLORIDE 20% 40 MEQ/15 ML UDC GT SCH (21:37)
--- NOTE | 2017-06-07 21:50 | NUR ---
TOLERATED DUE MEDICATIONS. VAP ORAL CARE GIVEN. NO SIGNS OF RESPIRATORY DISTRESS NOTED. HOB AT 30 DEGREES WITH BED IN LOW POSITION. WILL CONTINUE TO MONITOR PATIENT.
--- NOTE | 2017-06-07 22:30 | NUR ---
PATIENT HAD BM OF MODERATE BROWN LIQUID PASTY STOOL. COMPLETE BED BATH AND CATHETER CARE PROVIDED. CHANGED LINENS AND GOWN. PATIENT REPOSITIONED FOR COMFORT. NO SIGNS OF RESPIRATORY DISTRESS NOTED. HOB AT 30 DEGREES WITH BED IN LOW POSITION. CONTINUE TO MONITOR PATIENT.
[2017-06-08] VITALS (23 sets, daily range): BP systolic 91–129; BP diastolic 47–76
[2017-06-08] MEDS: BLOOD GLUCOSE MONITORING 1 DEV DEV FS SCH ×4 (00:03→18:00)
--- NOTE | 2017-06-08 01:00 | NUR ---
VAP ORAL CARE RENDERED. NO SIGNS OF SOB NOTED. HOB AT 30 DEGREES WITH BED IN LOW POSITION. CONTINUE TO MONITOR PATIENT.
--- NOTE | 2017-06-08 01:25 | NUR ---
PATIENT HAD MODERATE BM OF BROWN PASTY LIQUID STOOL. PERINEAL AND CATHETER CARE RENDERED. REPOSITIONED PATIENT FOR COMFORT. NO SIGNS OF RESPIRATORY DISTRESS NOTED. HOB AT 30 DEGREES WITH BED IN LOW POSITION. CONTINUE TO MONITOR PATIENT.
[2017-06-08] MEDS: METOCLOPRAMIDE 10 MG/2 ML INJ VIAL IVP SCH ×3 (04:32→20:53)
[2017-06-08] MEDS: CLINDAMYCIN 600 MG in DEXTROSE 5% 50 ML IV SCH ×3 (04:32→20:54)
[2017-06-08] MEDS: levETIRAcetam 1,000 MG in NACL 0.9% 100 ML IV SCH ×3 (05:07→17:29)
--- NOTE | 2017-06-08 05:30 | NUR ---
PATIENT HAD MODERATE BM OF BROWN LIQUID PASTY STOOL. CATHETER AND PERINEAL CARE RENDERED. REPOSITIONED PATIENT FOR COMFORT. VAP ORAL CARE RENDERED. HOB AT 30 DEGREES WITH BED IN LOW POSITION. CONTINUE TO MONITOR PATIENT.
[2017-06-08] MEDS: LEVOFLOXACIN 750 MG/D5W PREMIX 150 ML IV SCH (05:47)
[2017-06-08] MEDS ORDERED: FLUCONAZOLE 100 MG TAB PO SCH (06:00)
[2017-06-08] MEDS: ALBUTEROL SULFATE/IPRATROPIU 3 ML SOL IH SCH ×3 (07:05→18:52)
--- NOTE | 2017-06-08 07:05 | NUR ---
RECEIVED PT ON [place] ON A/C 14 VT500 PEEP5 FIO2 28 ALARMS ARE ON AND FUNCTIONAL BMV HOB PTS TRACH PORTEX 7 IS SECURE BS RHONCI I\L LAVAGE AND SX MOD YELLOW HHN GIVEN I\L WITH 3 MG DUONEB VENT PLUGGED INTO RED OUTLET NO APPARENT DISTRESS NOTEDPT IN HF AWAKE Addendum: 06/08/17 at 0741 by Jackelin Gunderson RT CUFF PRESSURE 26 CM H20
--- NOTE | 2017-06-08 07:08 | NUR ---
NO CHANGES IN PATIENT'S CONDITION. ALL PATIENT'S NEEDS ATTENDED TO DURING SHIFT. ENDORSED CONTINUITY OF CARE TO CHARGE NURSE EMMA GAXIOLA.
--- NOTE | 2017-06-08 07:30 | NUR ---
REPORT RECEIVED FROM OTF GAXIOLA. OPENS EYES SPONT. BUT DOES NOT TRACK NOR FOLLOW COMMANDS. RESPONDS SL. TO DEEP PAIN WITH SL. MOVEMENT OF EXT. TRACH PORTEX 7 TO VENT TV 500, FI02 28%, AC 14/MIN, PEEP 5. NO RESP DISTRESS NOTED. GT TO GRAVITY BAG WITH GREENISH DRAINAGE.
[2017-06-08] MEDS: DEXT 5% / NACL 0.45% 1,000 ML IV SCH ×2 (07:50→15:52)
--- NOTE | 2017-06-08 08:00 | NUR ---
RECTAL BAG IN PLACE. NO BM AT THIS TIME.
--- NOTE | 2017-06-08 08:15 | NUR ---
DR. PATEL HERE TO SEE AND EXAMINE PT.
--- NOTE | 2017-06-08 08:30 | NUR ---
ZESTRIL/GT HELD DUE TO BPS IN THE S. DR. PATEL AWARE.
[2017-06-08] MEDS: FERROUS SULFATE 300 MG/5 ML UDC GT SCH (08:43)
[2017-06-08] MEDS: DOCUSATE 100 MG/10 ML UDC GT SCH (08:44)
[2017-06-08] MEDS: LACTULOSE 20 GM/30 ML UDC GT SCH ×3 (08:44→17:29)
[2017-06-08] MEDS: POTASSIUM CHLORIDE 20% 40 MEQ/15 ML UDC GT SCH ×2 (08:45→20:51)
[2017-06-08] MEDS: PHENYTOIN 100 MG/4 ML UDC GT SCH ×2 (08:46→20:51)
[2017-06-08] MEDS: PANTOPRAZOLE 40 MG INJ VIAL IVP SCH ×2 (08:46→20:52)
[2017-06-08] MEDS: ZINC SULF 220 MG CAP GT SCH (08:46)
[2017-06-08] MEDS: ASCORBIC ACID 500 MG TAB GT SCH (08:47)
[2017-06-08] MEDS: THIAMINE 100 MG TAB GT SCH (08:47)
[2017-06-08] MEDS: LACTOBACILLUS RHAMNOSUS GG 1 EACH CAP PO SCH (08:47)
[2017-06-08] MEDS: METHIMAZOLE 5 MG TAB GT SCH ×2 (08:47→20:52)
[2017-06-08] MEDS: SENNA 8.6 MG TAB PO SCH ×3 (08:49→17:29)
[2017-06-08] MEDS: NYSTATIN/TRIAMCINOLONE CRM 15 GM TUBE TP SCH ×2 (08:54→20:54)
[2017-06-08] MEDS: LISINOPRIL 10 MG TAB GT SCH (09:00)
--- NOTE | 2017-06-08 09:02 | NUR ---
VENT CHECK BS OSCAR
[2017-06-08] MEDS: GLYCOPYRROLATE 1 MG TAB GT SCH ×2 (09:12→20:53)
--- NOTE | 2017-06-08 10:00 | NUR ---
GT CLAMPED. WILL START GT FEEDING ORDERED.
--- NOTE | 2017-06-08 10:19 | NUR ---
06/08/17 RD FOLLOW UP COMPLETED PLEASE REFER TO NUTRITION PROGRESS NOTE UNDER CARE ACTIVITY FOR ESTIMATED NUTRITION NEEDS. RD RECOMMENDATIONS: 1. CONTINUE ENTERAL FEEDING OF NUTREN PULMONARY VIA G-TUBE AT 10 ML/HR AND ADVANCE TOLERATED 10 ML Q6H TO GOAL OF 60 ML/HR. --- AT GOAL, THIS PROVIDES 1440 ML, 2160 KCAL, 98 GM PROTEIN TO MEET 100% OF PT ESTIMATED KCAL AND PROTEIN NEEDS 3. RD TO FOLLOW-UP 2-3 DAYS, HIGH RISK. JEFFERY GUADARRAMA, MS, RDN
--- NOTE | 2017-06-08 11:21 | NUR ---
VENT CHECK BS RHONCI I\L LAVAGE AND SX MOD YELLOW SECRETIONS
--- NOTE | 2017-06-08 13:13 | NUR ---
VENT CHECK BS RHONCI I\L LAVAGE AND SX LG YELLOW HHN GIVEN I\L WITH 3MG DUONEB
[2017-06-08] MEDS: Z-GUARD PASTE TP SCH (13:21)
--- NOTE | 2017-06-08 14:00 | NUR ---
. GT RESIDUAL 0. DIABETISOURCE 100 ML GIVEN THROUGH G TUBE OVER 1 HR. FLUSHED WITH 20 ML NS AFTER
--- NOTE | 2017-06-08 14:15 | NUR ---
UNABLE TO OBTAIN BLOOD RETURN FROM THE 2 PORTS OF THE PICC LINE. FLUSHED WITH NS WITHOUT ANY DIFFICULTY. DR. SANTIAGO MADE AWARE.
[2017-06-08] MEDS ORDERED: ALTEPLASE 2 MG VIAL MC SCH (14:25)
--- NOTE | 2017-06-08 15:00 | NUR ---
IV FLUID STOPPED FOR NOW. CATH FLOW 2 ML INSTILLED TO RED PORT OF THE PICC LINE.
--- NOTE | 2017-06-08 15:40 | NUR ---
ASPIRATED BOTH PICC LINE PORTS. OBTAINED GOOD BLOOD RETURN FROM BOTH PORTS. DISCARDED BECCA. 7 ML OF BLOOD. FLUSHED PORTS WITH SALINE WITHOUT ANY DIFFICULTY. IV D5 0.45% NS RESTARTED AT 60 ML/HR.
--- NOTE | 2017-06-08 16:56 | NUR ---
VENT CHECK BS RHONCI I\L LAVAGE AND SX MOD YELLOW
--- NOTE | 2017-06-08 18:30 | NUR ---
GT RESIDUAL 0. DIABETISOURCE 100 ML GIVEN/ GT. GT FLUSHED WITH 20 ML. CLAMPED AFTER.
--- NOTE | 2017-06-08 19:00 | NUR ---
DR. RODRÍGUEZ HERE TO SEE AND EXAMINE PT.
--- NOTE | 2017-06-08 19:25 | NUR ---
REPORT GIVEN TO GEETHA GAXIOLA.
--- NOTE | 2017-06-08 19:30 | NUR ---
RECEIVED REPORT FROM AM SHIFT,PT IS LETHARGIC,RESPONDS TO PAIN STIMULI, NO S/S OF RESP DISTRESS, NO SOB. TRACH TO VENT WITH WITH SETTING AC 14 TV 500 FIO2 28 AND PEEP 5 TOLERATED WELL. SMALL TO MEDIUM WHITE SECRETION NOTED.HOB UP 30-45 DEGREE.RHONCHI TO BILATERAL LUNGS. SR ON MONITOR. PICC LINE TO MARIEL DOUBLE LUMEN. PORT INTACT WELL, NO S/S OF INFECTION ON THE SITE. POSITIVE BLOOD RETURN NOTED FROM BOTH PORT. IV D5 1/2 NS AT 60 CC/HR RUNNING ORDER. EDEMA NOTED TO BUE/BLE +2 PITTING. ELEVATED BLE/BUE WITH PILLOWS. GT IN PLACE WITH REDNESS NOTED ON THE AREA. KEPT AREA CLEAN AND DRY. ABD SOFT NON DISTENDED. HYPOACTIVE BOWEL SOUNDS TO ALL QUADRANT.HERNIA TO ABD. SKIN WARM TO TOUCH.SKIN NON INTACT PRESSURE INJURY TO SACRAL AREA COVERED WITH DRY DRESSING. COME WITH NEW ORDER TO INCREASE FEEDING DIABETIC SOURCE TO 150 ML Q 6 HRS . F/C IN PLACE WITH YELLOW CLEAR URINE DRAIN BY GRAVITY. KEPT CLEAN AND DRY.
--- NOTE | 2017-06-08 20:00 | NUR ---
PER FEEDING CHANGE TO DIABETIC SOURCE AT 150 CC Q 6 HRS AND H20 AT 20 CC Q 6 HRS.CARRIED OUT.
[2017-06-08] MEDS: ATORVASTATIN 20 MG TAB PO SCH (20:52)
--- NOTE | 2017-06-08 21:00 | NUR ---
NIGHT MEDS GIVEN AND TOLERATED WELL.
--- NOTE | 2017-06-08 22:00 | NUR ---
PT REPOSITION FOR COMFORT.SLEEPING AT THIS TIME.
[2017-06-09] VITALS (24 sets, daily range): BP systolic 100–147; BP diastolic 63–80
--- NOTE | 2017-06-09 00:31 | NUR ---
BLOOD SUGAR 95,NO COVERAGE NEEDED.SKIN WARM TO TOUCH.FEEDING TUBE GIVEN ORDERED.
--- NOTE | 2017-06-09 02:30 | NUR ---
PT SLEEPING WELL,NO S/S OF RESP.DISTRESS,NO SOB.
--- NOTE | 2017-06-09 05:00 | NUR ---
AM CARE GIVEN.PT HAS LARGE BM X2. GOOD MELY CARE GIVEN. KEPT CLEAN AND DRY.
[2017-06-09] MEDS: CLINDAMYCIN 600 MG in DEXTROSE 5% 50 ML IV SCH ×2 (05:19→13:33)
[2017-06-09] MEDS: METOCLOPRAMIDE 10 MG/2 ML INJ VIAL IVP SCH ×3 (05:20→20:38)
[2017-06-09 05:22] LABS: BASOPHILS # (AUTO) 0.2 K/uL (0.00-0.22); BASOPHILS % (AUTO) 1.7 % (0.0-2.0); EOSINOPHILS # (AUTO) 0.4 K/uL (0-0.4); HEMATOCRIT 22.4 % (36-48); HEMOGLOBIN 7.3 g/dL (12.0-16.0); LYMPHOCYTES # (AUTO) 1.3 K/uL (2.5-16.5); LYMPHOCYTES % (AUTO) 13.6 % (20.5-51.1); MEAN CORPUSCULAR HEMOGLOBIN 30 pg (27-31); MEAN CORPUSCULAR HGB CONC 33 g/dL (33-37); MEAN CORPUSCULAR VOLUME 92 fL (80-94); MONOCYTES # (AUTO) 0.7 K/uL (0.8-1.0); MONOCYTES % (AUTO) 7.2 % (1.7-9.3); NEUTROPHILS # (AUTO) 6.8 K/uL (1.8-7.7); NEUTROPHILS % (AUTO) 73.5 % (42.2-75.2); PLATELET COUNT (AUTO) 343 K/uL (140-450); RED BLOOD CELL COUNT(AUTO) 2.42 MIL/uL (4.20-5.40); RED CELL DISTRIBUTION WIDTH 14.9 % (11.6-13.7); WHITE BLOOD COUNT (AUTO) 9.4 K/uL (4.8-10.8)
[2017-06-09 05:37] LABS: ANION GAP 10.5 (8-16); CARBON DIOXIDE 27.1 mmol/L (21-32); CREATININE 0.8 mg/dL (0.6-1.3); POTASSIUM 3.6 mmol/L (3.5-5.1)
--- NOTE | 2017-06-09 05:55 | NUR ---
AM MEDS GIVEN ORDER TOLERATED WELL.BLOOD SUGAR IS 95 NO COVERAGE NEEDED.DR.FERNANDEZ DESAI COME TO SEE PT UP DATE PT STATUS.
[2017-06-09] MEDS ORDERED: LEVOFLOXACIN 750 MG/D5W PREMIX 150 ML IV ONE (05:57)
[2017-06-09] MEDS: LEVOFLOXACIN 750 MG/D5W PREMIX 150 ML IV SCH (05:58)
[2017-06-09] MEDS: BLOOD GLUCOSE MONITORING 1 DEV DEV FS SCH ×5 (05:59→23:53)
[2017-06-09] MEDS: ALBUTEROL SULFATE/IPRATROPIU 3 ML SOL IH SCH ×3 (06:00→19:04)
[2017-06-09] MEDS ORDERED: FERRIC GLUCONATE 125 MG in NACL 0.9% 100 ML IV ONE (06:10)
--- NOTE | 2017-06-09 06:25 | NUR ---
REC'D PT ON CARESCAPE VENT SETTINGS AC14 VT 500 PEEP 5 FIO2 28% ALARMS ON AND FUNCTIONING PROPERLY, AMBU BAG AT SIDE OF VENT AND VENTILATOR IS PLUGGED INTO RED OUTLET, SXN PT SMALL AMT OF THICK CREAM COLOR SECRETIONS, B\S CLEAR BILATERALLY, NO HHN GIVEN DUE TO PT SLEEPING PT IS TRACH WITH PORTEX 7 AND SKIN INTEGRITY IS INTACT, CUFF PRESSURE IS 26CM H2O PT IS SLEEPING WITH NO SIGNS OF DISTRESS NOTED AT THIS TIME
[2017-06-09 06:43] LABS: MAGNESIUM 2.2 mg/dL (1.8-2.4); PHENYTOIN (DILANTIN) 13.3 ug/ml (10.0-20.0); PHOSPHORUS 3.1 mg/dL (2.5-4.9)
--- NOTE | 2017-06-09 07:15 | NUR ---
REPORT GIVEN TO AM SHIFT. PT STABLE AT THIS TIME.
--- NOTE | 2017-06-09 07:20 | NUR ---
RECEIVED REPORT FROM GEETHA . PT SLEEPING TRACH TO VENT AC 12 FIO2 28% VT 500 PEEP OF 5 O2 SAT 99% .ABDOMEN ROUND AND FIRM BOWEL SOUND POSITIVE,GT FEEDING BY BOLUS. WEST CATHETER DRAIN YELLOW URINE.
[2017-06-09] MEDS: METHIMAZOLE 5 MG TAB GT SCH ×3 (08:12→21:36)
[2017-06-09] MEDS: GLYCOPYRROLATE 1 MG TAB GT SCH ×3 (08:13→21:36)
[2017-06-09] MEDS: LACTULOSE 20 GM/30 ML UDC GT SCH (08:14)
[2017-06-09] MEDS: POTASSIUM CHLORIDE 20% 40 MEQ/15 ML UDC GT SCH ×3 (08:15→21:35)
[2017-06-09] MEDS: FERROUS SULFATE 300 MG/5 ML UDC GT SCH ×2 (08:15→08:20)
[2017-06-09] MEDS: ZINC SULF 220 MG CAP GT SCH (08:16)
[2017-06-09] MEDS: ASCORBIC ACID 500 MG TAB GT SCH (08:16)
[2017-06-09] MEDS: LACTOBACILLUS RHAMNOSUS GG 1 EACH CAP PO SCH (08:16)
[2017-06-09] MEDS: SENNA 8.6 MG TAB PO SCH (08:17)
[2017-06-09] MEDS: PHENYTOIN 100 MG/4 ML UDC GT SCH ×3 (08:17→08:26)
[2017-06-09] MEDS: THIAMINE 100 MG TAB GT SCH (08:17)
[2017-06-09] MEDS: PANTOPRAZOLE 40 MG INJ VIAL IVP SCH ×3 (08:18→21:35)
[2017-06-09] MEDS: LISINOPRIL 10 MG TAB GT SCH (08:20)
--- NOTE | 2017-06-09 08:36 | NUR ---
VENT CHECK NO SXN REQUIRED AT THIS TIME AIRWAY IS PATENT AND PT IS RESTING WITH NO SIGNS OF DISTRESS AT THIS TIME RN ANNA AT BEDSIDE
[2017-06-09] MEDS: DOCUSATE 100 MG/10 ML UDC GT SCH (09:00)
[2017-06-09] MEDS: NYSTATIN/TRIAMCINOLONE CRM 15 GM TUBE TP SCH ×2 (09:00→20:42)
[2017-06-09] MEDS: levETIRAcetam 100 MG/ML ORASYR GT SCH ×2 (09:33→20:38)
--- NOTE | 2017-06-09 10:25 | NUR ---
RECEIVE THE CALL FROM THE LAB ,THE SPUTUM C/S POSITIVE FOE SOURAV, DONNA AND SBL JACK WATTS AWARE.
--- NOTE | 2017-06-09 10:32 | NUR ---
VENT CHECK, SXN PT SMALL AMT OF THICK CREAM COLOR SECRETIONS B\S ARE CLEAR AND AIRWAY IS PATENT
--- NOTE | 2017-06-09 12:00 | NUR ---
BLOOD GLUCOSE ACCUE CHECK 92 NO INSULIN COVER NEEDED
[2017-06-09] MEDS: FERRIC GLUCONATE 125 MG in NACL 0.9% 100 ML IV SCH ×2 (12:04→12:24)
[2017-06-09] MEDS: Z-GUARD PASTE TP SCH (12:25)
--- NOTE | 2017-06-09 12:52 | NUR ---
VENT CHECK, SXN PT MODERATE AMT OF THICK CLEAR SECRETIONS, B\S ARE CLEAR AND TRACH CARE DONE: CHANGED TRACH TIE AND GAUZE, PT IS RESTING WITH NO SIGNS OF DISTRESS NOTED AT THIS TIME
[2017-06-09] MEDS: DEXT 5% / NACL 0.45% 1,000 ML IV SCH (13:34)
--- NOTE | 2017-06-09 14:00 | NUR ---
SEEN BY ANÍBAL WATTS AT BED SIDE WILL CHANGE THE ANTIBIOTIC.
--- NOTE | 2017-06-09 15:12 | NUR ---
VENT CHECK, NO SXN REQUIRED AT THIS TIME, B\S ARE CLEAR AND AIRWAY IS PATENT
[2017-06-09] MEDS ORDERED: GENTAMICIN PER PHARMACY MC PRN (15:40)
--- NOTE | 2017-06-09 16:00 | NUR ---
REPOSITION SPONGE BATH AND SKIN CARE GIVEN NO FEVER ITAL SIGN WITH IN NORMAL LIMIT.
--- NOTE | 2017-06-09 16:35 | NUR ---
VENT CHECK, SXN PT SMALL AMT OF SECRETIONS B\S ARE CLEAR AND PT IS RESTING WITH NO SIGNS OF DISTRESS NOTED
[2017-06-09] MEDS: GENTAMICIN 120 MG in DEXTROSE 5% 100 ML IV SCH (17:20)
--- NOTE | 2017-06-09 19:08 | NUR ---
RCV'D PT ON MECHANICAL VENTILATION TRACHED WITH PORTEX 7. SETTINGS ARE AC14,500,28%,+5. ALARMS ARE AUDIBLE. TRACH IS IN PLACE AND SECURED. STOMA IS DRAINING. BS CLEAR. SPO2 96%. NO SOB OR DISTRESS NOTED. HHN NOT GIVEN BECAUSE PT IS ASLEEP. VENT IS CONNECTED TO RED OUTLET. AMBU BAG AT BEDSIDE. WILL CONTINUE TO MONITOR.
--- NOTE | 2017-06-09 19:19 | NUR ---
PT. RESTING QUIETLY . REPORT GIVE TO GEETHA GAXIOLA AT BED SIDE.
--- NOTE | 2017-06-09 19:30 | NUR ---
RECEIVED REPORT FROM MINOR CASTILLO FOR CONTINUITY OF CARE. VS STABLE AT THIS TIME. AFEBRILE. OPENS EYES BUT DOES NOT FOLLOE COMMAND. PT TRACH TO VENT A/C VC FIO2 28, R 14, TV 500, PEEP 5. NO SOB. NO SIGNS OF DISTRESS. RHONCHI NOTED. PULSES PALPABLE IN ALL EXTREMITIES. S1+S2. SINUS RHYTHM, ON MONITOR. GTUBE IN PLACE. NO RESIDUAL NOTED. CURRENTLY NOT CONNECTED TO FEEDING. WEST CATHETER IN PLACE. DRAINING VIA GRAVITY. URINE YELLOW, CLEAR, AND NO ODOR NOTED. SECURED IN PLACE WITH STATLOCK. MARIEL PICC LINE WITH D5 0.45 NS 10ML/HR RUNNING. LINE FLUSHED AND PATENT. DRESSING INTACT. NO SWELLING NOTED.ORAL CARE PROVIDED. HOB AT 30 DEGREES. BED AT LOW POSITION. ALL SAFETY PRECAUTIONS IN PLACE. WILL CONTINUE TO MONITOR.
[2017-06-09] MEDS: ATORVASTATIN 20 MG TAB PO SCH (20:38)
[2017-06-09] MEDS: MEROPENEM 1,000 MG in NACL 0.9% 100 ML IV SCH (20:40)
[2017-06-09] MEDS ORDERED: PHENYTOIN 100 MG/4 ML UDC GT SCH (21:15)
[2017-06-09] MEDS ORDERED: PANTOPRAZOLE 40 MG INJ VIAL IVP SCH (21:15)
[2017-06-09] MEDS ORDERED: METHIMAZOLE 5 MG TAB GT SCH (21:15)
[2017-06-09] MEDS ORDERED: GLYCOPYRROLATE 1 MG TAB GT SCH (21:15)
[2017-06-09] MEDS ORDERED: POTASSIUM CHLORIDE 20% 40 MEQ/15 ML UDC GT SCH (21:20)
--- NOTE | 2017-06-09 21:40 | NUR ---
SCHEDULED MEDICATIONS ADMINISTERED. PT TOLERATED WELL. NO SIGNS OF DISTRESS NOTED. VITAL SIGNS STABLE AT THIS TIME. NO RESIDUAL FROM GTUBE. MARIEL PICC LINE FLUSHED AND PATENT. HOB AT 30 DEGREES. ALL SAFETY PRECAUTIONS IN PLACE. WILL CONTINUE TO MONITOR.
--- NOTE | 2017-06-09 22:17 | NUR ---
MERREM DONE INFUSING. NO ADVERSE SIDE EFFECT NOTED. PT TOLERATED WELL. D5Q 0.45 NS RUNNING AT 10ML/HR. ALL SAFETY PRECAUTIONS IN PLACE. WILL CONTINUE TO MONITOR.
--- NOTE | 2017-06-09 23:45 | NUR ---
GT CONNECTED TO FEEDING. DIABETISOURCE 150ML/HR TO RUN OVER 1 HOUR. PT TOLERATING WELL. NO RESIDUAL NOTED. HOB AT 30 DEGREES. ALL SAFETY PRECAUTIONS IN PLACE. WILL CONTINUE TO MONITOR PT.
--- NOTE | 2017-06-09 23:54 | NUR ---
VS STABLE AT THIS TIME. SINUS RHYTHM ON MONITOR. NO SIGNS OF DISTRESS NOTED. BLOOD GLUCOSE WNL. HOB KEPT AT 30 DEGREES. WEST CATHETER DRAINING WELL. ALL SAFETY PRECAUTIONS IN PLACE. WILL CONTINUE TO MONITOR.
[2017-06-10] VITALS (24 sets, daily range): BP systolic 100–138; BP diastolic 56–77
--- NOTE | 2017-06-10 02:00 | NUR ---
REPOSITION PT FOR COMFORT,HOB UP 30-45 DEGREE.NO S/S OF PAIN. NO S/S OF RESP DISTRESS.
--- NOTE | 2017-06-10 03:30 | NUR ---
PT CARE PROVIDED. SPONGE BATH, LINENS AND GOWN CHANGED. PT TOLERATED WELL. TURNED AND REPOSITIONED. NO SIGNS OF DISTRESS NOTED. NO SOB. FLACC 0. VITAL SIGNS WITHIN NORMAL LIMIT. NO CHANGE OF CONDITION NOTED AT THIS TIME. ALL SAFETY PRECAUTIONS IN PLACE WILL CONTINUE TO MONITOR.
[2017-06-10] MEDS: GENTAMICIN 120 MG in DEXTROSE 5% 100 ML IV SCH (04:53)
[2017-06-10] MEDS: MEROPENEM 1,000 MG in NACL 0.9% 100 ML IV SCH ×3 (04:54→20:21)
[2017-06-10] MEDS: METOCLOPRAMIDE 10 MG/2 ML INJ VIAL IVP SCH ×3 (04:55→20:22)
[2017-06-10 04:58] LABS: HEMATOCRIT 26.2 % (36-48); HEMOGLOBIN 8.6 g/dL (12.0-16.0); MEAN CORPUSCULAR HEMOGLOBIN 30 pg (27-31); MEAN CORPUSCULAR HGB CONC 33 g/dL (33-37); MEAN CORPUSCULAR VOLUME 92 fL (80-94); PLATELET COUNT (AUTO) 414 K/uL (140-450); RED BLOOD CELL COUNT(AUTO) 2.85 MIL/uL (4.20-5.40); WHITE BLOOD COUNT (AUTO) 13.2 K/uL (4.8-10.8)
--- NOTE | 2017-06-10 05:15 | NUR ---
BLOOD DRAW FROM PICC LINE FOR LABS ORDERED. PICC LINE DRESSING CHANGED. SITE CLEAR. NO REDNESS OR SWELLING NOTED. TOLERATED WELL. LINE FLUSHED AND PATENT. D5W 0.45 NS RUNNING AT 10ML/HR. WEST CATHETER EMPTIED. WILL CONTINUE TO MONITOR.
[2017-06-10] MEDS: ALBUTEROL SULFATE/IPRATROPIU 3 ML SOL IH SCH ×3 (06:00→18:50)
[2017-06-10 06:01] LABS: ANION GAP 11.6 (8-16); CARBON DIOXIDE 26.1 mmol/L (21-32); CREATININE 0.8 mg/dL (0.6-1.3); POTASSIUM 3.7 mmol/L (3.5-5.1)
--- NOTE | 2017-06-10 06:05 | NUR ---
SCHEDULED MEDICATIONS ADMINISTERED. PT TOLERATED WELL. NO ADVERSE SIDE EFFECT NOTED AT THIS TIME. KEPT HOB AT [address] SANTIAGO CAME TO SEE PT. WILL FOLLOW UP WITH ANY ORDER. FEEDING DONE INFUSING. PT GIVEN 150ML DIABETISOURCE WITH H2O FLUSH 20ML. ALL SAFETY PRECAUTIONS IN PLACE. NO CHANGE OF CONDITION AT THIS TIME. WILL CONTINUE TO MONITOR.
[2017-06-10 06:14] LABS: MAGNESIUM 2.2 mg/dL (1.8-2.4)
[2017-06-10 06:15] LABS: PHENYTOIN (DILANTIN) 10.8 ug/ml (10.0-20.0)
[2017-06-10] MEDS: BLOOD GLUCOSE MONITORING 1 DEV DEV FS SCH ×4 (06:16→23:22)
[2017-06-10 06:36] LABS: EOSINOPHILS % (MANUAL) 3 % (0-4); LYMPHOCYTES % (MANUAL) 17 % (20-46); MONOCYTES % (MANUAL) 4 % (5-12)
--- NOTE | 2017-06-10 06:41 | NUR ---
RECEIVED PT ON CARESCAPE ON A/C 14 VT500 PEEP5 FIO2 28 ALARMS ARE ON AND FUNCTIONAL BMV HOB PTS TRACH PORTEX 7 IS SECURE PT IN HF ASLEEP BS CLEAR AIRWAY IS PATENT NO APPARENT DISTRESS NOTED VENT PLUGGED INTO RED OUTLET Addendum: 06/10/17 at 0649 by Jackelin Gunderson RT CUFF PRESSURE IS 26 CM H20
--- NOTE | 2017-06-10 07:28 | NUR ---
REPORT GIVEN TO YOUNG RN AM SHIFT. PT IS STABLE.
--- NOTE | 2017-06-10 07:30 | NUR ---
RECEIVED A REPORT FROM MINOR INIGUEZ. PT CLOSED EYES AND UNABLE TO FOLLOW COMMANDS, UNRESPONSIVE TO VOICE AT THIS TIME. TRACH TO VENT AND SETTING AT FiO2 28, TV 500, AC 14, PEEP 5. SR ON THE MONITOR. FLACC 0 AND NO S/SX OF RESPIRATORY DISTRESS NOTED. PICC LINE TO RT UPPER ARM, PATENT AND INTACT. G-TUBE IN PLACE AND WEST CATHETER DRAINING CLEAR YELLOW URINE. SKIN WARM TO TOUCH. CONTRACT ISOLATION FOR MDRO/SLAG MOTOR OPERATOR IN SPUTUM. SIGN POSTED AT THE DOOR OF THE ROOM. WILL CONTINUE TO MONITOR. SAFETY PRECAUTION, BED IN LOW POSITION, CALL LIGHT WITHIN REACH.
--- NOTE | 2017-06-10 07:35 | NUR ---
RESIDENT GROUP IN TO SEE PT. WILL FOLLOW UP ON ORDERS.
[2017-06-10] MEDS: levETIRAcetam 100 MG/ML ORASYR GT SCH ×2 (08:15→20:21)
[2017-06-10] MEDS: METHIMAZOLE 5 MG TAB GT SCH (08:16)
[2017-06-10] MEDS: THIAMINE 100 MG TAB GT SCH (08:16)
[2017-06-10] MEDS: LACTULOSE 20 GM/30 ML UDC GT SCH (08:16)
[2017-06-10] MEDS: PANTOPRAZOLE 40 MG INJ VIAL IVP SCH (08:16)
[2017-06-10] MEDS: ZINC SULF 220 MG CAP GT SCH (08:16)
[2017-06-10] MEDS: DOCUSATE 100 MG/10 ML UDC GT SCH (08:17)
[2017-06-10] MEDS: SENNA 8.6 MG TAB PO SCH (08:17)
[2017-06-10] MEDS: FERROUS SULFATE 300 MG/5 ML UDC GT SCH ×2 (08:17→20:22)
[2017-06-10] MEDS: POTASSIUM CHLORIDE 20% 40 MEQ/15 ML UDC GT SCH ×2 (08:17→20:22)
[2017-06-10] MEDS: LACTOBACILLUS RHAMNOSUS GG 1 EACH CAP PO SCH (08:17)
[2017-06-10] MEDS: GLYCOPYRROLATE 1 MG TAB GT SCH ×2 (08:17→20:22)
[2017-06-10] MEDS: ASCORBIC ACID 500 MG TAB GT SCH (08:18)
[2017-06-10] MEDS: PHENYTOIN 100 MG/4 ML UDC GT SCH ×2 (08:18→20:22)
[2017-06-10] MEDS: LISINOPRIL 10 MG TAB GT SCH (08:18)
[2017-06-10] MEDS: NYSTATIN/TRIAMCINOLONE CRM 15 GM TUBE TP SCH ×2 (08:18→20:23)
--- NOTE | 2017-06-10 08:45 | NUR ---
PT TOLERATED MEDICATIONS WELL. WILL CONTINUE TO MONITOR.
--- NOTE | 2017-06-10 08:50 | NUR ---
VENT CHECK BS RHONCI I\L LAVAGE AND SX LG YELLOW TRACH CARE DONE
--- NOTE | 2017-06-10 09:25 | NUR ---
DR. ENRIQUE IN TO SEE PT. WILL FOLLOW UP ON ORDERS.
[2017-06-10] MEDS: DEXT 5% / NACL 0.45% 1,000 ML IV SCH (10:48)
--- NOTE | 2017-06-10 11:07 | NUR ---
VENT CHECK BS RHONCI I\L LAVAGE AND SX MOD YELLOW SECRETIONS
[2017-06-10] MEDS: FERRIC GLUCONATE 125 MG in NACL 0.9% 100 ML IV SCH (11:18)
--- NOTE | 2017-06-10 11:19 | NUR ---
PT HAD MEDIUM AMOUNT OF BOWEL MOVEMENT, LOOSE AND BROWN COLOR NOTED. KEPT CLEAN AND DRY. PT STABLE AND FLACC 0. WILL CONTINUE TO MONITOR.
--- NOTE | 2017-06-10 12:00 | NUR ---
DR. SPANGLER IN TO SEE PT. WILL FOLLOW UP ON ORDERS.
--- NOTE | 2017-06-10 12:12 | NUR ---
DR. RODRÍGUEZ IN TO SEE PT. WILL FOLLOW UP ON ORDERS.
[2017-06-10] MEDS: Z-GUARD PASTE TP SCH (12:18)
--- NOTE | 2017-06-10 13:24 | NUR ---
FAXED [facility] FOR SPUTUM TO [facility].
--- NOTE | 2017-06-10 14:24 | NUR ---
DR. MARQUIS IN TO SEE PT. WILL FOLLOW UP ON ORDERS.
--- NOTE | 2017-06-10 15:23 | NUR ---
VENT CHECK BS CLEAR AIRWAY IS PATENT
--- NOTE | 2017-06-10 16:31 | NUR ---
PT STABLE AND FLACC 0. RESPIRATION ARE EVEN AND UNLABORED. WILL CONTINUE TO MONITOR.
--- NOTE | 2017-06-10 17:12 | NUR ---
VENT CHECK BS RHONCI I\L LAVAGE AND SX MOD YELLOW SECRETIONS
[2017-06-10] MEDS: LANSOPRAZOLE 30 MG CAPDR GT SCH (17:16)
--- NOTE | 2017-06-10 18:49 | NUR ---
FLACC 0. NO S/SX OF RESPIRATORY DISTRESS NOTED. CONTINUE ON SAME VENTILATOR SETTING AND G-TUBE FEEDING TOLERATING WELL. WILL CONTINUE TO MONITOR
--- NOTE | 2017-06-10 19:20 | NUR ---
REPORT RECEIVED FROM MORNING RNBLAYNE. PT OPENS EYES BUT NON PURPOSEFUL. UNABLE TO FOLLOW COMMANDS. TRACH TO VENT. AC14, FIO2 28, TV 500, PEEP 5. G-TUBE IN PLACE AND PATENT WITH 5ML RESIDUAL. S1 AND S2 HEARD. BOWEL SOUNDS ACTIVE FROM ALL 4 QUADS. PICC LINE TO RIGHT UPPER ARM PATENT AND ASYMPTOMATIC. CONTACT ISOLATION FOR MDRO AND BRIM POUNCING MACHINE OPERATOR SPUTUM. SR ON THE MONITOR. SACROCOCCYX DRESSING DRY AND INTACT. BILATERAL PADDED S/R UP FOR SEIZURE PRECAUTIONS. CALL LIGHT IN REACH AND BED IS KEPT TO THE LOWEST. FLACC=0. WILL CONTINUE TO MONITOR.
--- NOTE | 2017-06-10 19:27 | NUR ---
REPORT GIVEN AND ENDORSED CARE TO MINOR ROBERTSON. PT STABLE
[2017-06-10] MEDS: ATORVASTATIN 20 MG TAB PO SCH (20:23)
--- NOTE | 2017-06-10 23:24 | NUR ---
BS CHECKED ORDERED. NO INSULIN COVERAGE NEEDED. NO ACUTE DISTRESS NOTED. TEMP 98.0 F. ALL SAFETY PRECAUTIONS ARE IN PLACE. WILL CONTINUE TO MONITOR.
[2017-06-11] VITALS (24 sets, daily range): BP systolic 96–123; BP diastolic 46–87
--- NOTE | 2017-06-11 01:35 | NUR ---
PT EYES CLOSED. NO ACUTE DISTRESS NOTED. FLACC=0. ALL SAFETY PRECAUTIONS IN PLACE. WILL CONTINUE TO MONITOR.
--- NOTE | 2017-06-11 03:30 | NUR ---
PT NOTED WITH LARGE BOWEL MOVEMENT. ASSISTED WITH INCONTINENCE CARE AND DRESSING TO SACROCOCCYX WAS CHANGED DUE TO SOILAGE. PT TOLERATED WELL. WILL CONTINUE TO MONITOR.
[2017-06-11] MEDS: MEROPENEM 1,000 MG in NACL 0.9% 100 ML IV SCH ×3 (04:47→21:31)
[2017-06-11] MEDS: METOCLOPRAMIDE 10 MG/2 ML INJ VIAL IVP SCH ×3 (04:47→21:30)
[2017-06-11] MEDS: BLOOD GLUCOSE MONITORING 1 DEV DEV FS SCH ×4 (05:05→23:25)
[2017-06-11] MEDS: FLUCONAZOLE 100 MG TAB PO SCH (05:13)
--- NOTE | 2017-06-11 05:18 | NUR ---
ADMINISTERED MEDS ORDERED. TOLERATED WELL. BS CHECKED AND NO INSULIN COVERAGE NEEDED. NO ACUTE DISTRESS NOTED. WILL CONTINUE TO MONITOR.
--- NOTE | 2017-06-11 05:50 | NUR ---
DR. SANTIAGO AT BED SIDE. WILL FOLLOW UP WITH ANY ORDERS
[2017-06-11] MEDS: ALBUTEROL SULFATE/IPRATROPIU 3 ML SOL IH SCH ×3 (06:00→19:15)
--- NOTE | 2017-06-11 06:08 | NUR ---
CHEST XRAY IS BEING TAKEN AT BED SIDE.
[2017-06-11 06:29] LABS: ANION GAP 10.9 (8-16); BASOPHILS # (AUTO) 0.3 K/uL (0.00-0.22); BASOPHILS % (AUTO) 3.5 % (0.0-2.0); CARBON DIOXIDE 27.4 mmol/L (21-32); CREATININE 0.8 mg/dL (0.6-1.3); EOSINOPHILS # (AUTO) 0.3 K/uL (0-0.4); EOSINOPHILS % (AUTO) 3.2 % (0.0-4.0); HEMATOCRIT 25.2 % (36-48); HEMOGLOBIN 8.2 g/dL (12.0-16.0); LYMPHOCYTES # (AUTO) 1.7 K/uL (2.5-16.5); LYMPHOCYTES % (AUTO) 17.6 % (20.5-51.1); MEAN CORPUSCULAR HEMOGLOBIN 30 pg (27-31); MEAN CORPUSCULAR HGB CONC 33 g/dL (33-37); MEAN CORPUSCULAR VOLUME 93 fL (80-94); MONOCYTES # (AUTO) 0.8 K/uL (0.8-1.0); MONOCYTES % (AUTO) 8.8 % (1.7-9.3); NEUTROPHILS # (AUTO) 6.4 K/uL (1.8-7.7); NEUTROPHILS % (AUTO) 66.9 % (42.2-75.2); PLATELET COUNT (AUTO) 277 K/uL (140-450); POTASSIUM 4.3 mmol/L (3.5-5.1); RED BLOOD CELL COUNT(AUTO) 2.72 MIL/uL (4.20-5.40); RED CELL DISTRIBUTION WIDTH 15.2 % (11.6-13.7)
--- NOTE | 2017-06-11 06:36 | NUR ---
REC'D PT ON CARESCAPE VENT SETTINGS AC14 VT 500 PEEP 5 FIO2 28% ALARMS ON AND FUNCTIONING PROPERLY, AMBU BAG AT SIDE OF VENT AND VENTILATOR IS PLUGGED INTO RED OUTLET, NO HHN GIVEN PT IS SLEEPING B\S ARE CLEAR BILATERALLY, SNX SMALL AMT OF CREAM COLOR SECRETIONS, THICK CLEAR SECRETIONS FROM TRACH, PT IS TRACH WITH PORTEX 7 AND SKIN INTEGRITY IS INTACT, CUFF PRESSURE IS 26 CM H20 PT IS RESTING WITH NO SIGNS OF DISTRESS NOTED AT THIS TIME
[2017-06-11 07:02] LABS: WHITE BLOOD COUNT (AUTO) 9.5 K/uL (4.8-10.8)
--- NOTE | 2017-06-11 07:20 | NUR ---
RECEIVED A REPORT FROM MINOR ROBERTSON. PT CLOSED EYES AND NONVERBAL, UNABLE TO FOLLOW COMMANDS. FLACC 0 AND NO S/SX OF RESPIRATORY DISTRESS NOTED. TRACH TO VENT AND SETTING AT FiO 28, TV 500, AC 14, PEEP 5. SR ON THE MONITOR. SKIN WARM TO TOUCH. PICC LINE TO RT UPPER ARM [id number] AND ONE OF LUMEN(PURPLE) MALFUNCTIONING PER TRACTOR ENGINE ASSEMBLER NURSE. G-TUBE IN PLACE AND WEST CATHETER DRAINING YELLOW URINE. ON SCD FOR VTE PROPHYLAXIS AND CONTACT ISOLATION FOR MDRO/VARNISH MELTER IN SPUTUM. SAFETY PRECAUTION, BED IN LOW POSITION, CALL LIGHT WITHIN REACH. WILL CONTINUE TO MONITOR.
--- NOTE | 2017-06-11 07:21 | NUR ---
REPORT GIVEN TO MORNING NURSEBLAYNE RN FOR CONTINUITY OF CARE. PT VS STABLE AT THIS TIME.
--- NOTE | 2017-06-11 07:40 | NUR ---
RESIDENT GROUP IN TO SEE PT AND AWARE OF PICC LINE(ONE OF LUMEN, PURPLE) IS NOT WORKING. WILL FOLLOW UP ON ORDERS.
[2017-06-11] MEDS: LANSOPRAZOLE 30 MG CAPDR GT SCH ×2 (08:00→16:52)
--- NOTE | 2017-06-11 08:41 | NUR ---
VENT CHECK, SXN PT SMALL AMT OF CREAM COLOR SECRETIONS, B\S CLEAR AND AIRWAY IS PATENT PT IS RESTING WITH NO SIGNS OF DISTRESS NOTED AT THIS TIME
[2017-06-11] MEDS: POTASSIUM CHLORIDE 20% 40 MEQ/15 ML UDC GT SCH ×2 (08:43→21:29)
[2017-06-11] MEDS: levETIRAcetam 100 MG/ML ORASYR GT SCH ×2 (08:44→21:29)
[2017-06-11] MEDS: DOCUSATE 100 MG/10 ML UDC GT SCH (08:44)
[2017-06-11] MEDS: SENNA 8.6 MG TAB PO SCH (08:44)
[2017-06-11] MEDS: GLYCOPYRROLATE 1 MG TAB GT SCH ×2 (08:44→21:30)
[2017-06-11] MEDS: LACTULOSE 20 GM/30 ML UDC GT SCH (08:44)
[2017-06-11] MEDS: LACTOBACILLUS RHAMNOSUS GG 1 EACH CAP PO SCH (08:45)
[2017-06-11] MEDS: LISINOPRIL 10 MG TAB GT SCH (08:45)
[2017-06-11] MEDS: THIAMINE 100 MG TAB GT SCH (08:45)
[2017-06-11] MEDS: ASCORBIC ACID 500 MG TAB GT SCH (08:45)
[2017-06-11] MEDS: PHENYTOIN 100 MG/4 ML UDC GT SCH ×2 (08:45→21:29)
[2017-06-11] MEDS: ZINC SULF 220 MG CAP GT SCH (08:45)
[2017-06-11] MEDS: FERROUS SULFATE 300 MG/5 ML UDC GT SCH ×2 (08:45→21:29)
[2017-06-11] MEDS: GENTAMICIN 80 MG in DEXTROSE 5% 100 ML IV SCH ×2 (08:52→21:30)
[2017-06-11] MEDS ORDERED: DEXT 5% / NACL 0.45% 500 ML IV SCH (09:00)
--- NOTE | 2017-06-11 09:28 | NUR ---
PT STABLE AND TOLERATED MEDICATIONS WELL. WILL CONTINUE TO MONITOR.
--- NOTE | 2017-06-11 09:53 | NUR ---
DR. ENRIQUE IN TO SEE PT. WILL FOLLOW UP ON ORDERS.
--- NOTE | 2017-06-11 10:45 | NUR ---
VENT CHECK, NO SXN REQUIRED AT THIS TIME, B\S ARE CLEAR AIRWAY IS PATENT PT RESTING
[2017-06-11] MEDS ORDERED: SKINTEGRITY HYDROGEL TP PRN (11:10)
--- NOTE | 2017-06-11 11:30 | NUR ---
WOUND CARE RE-EVALUATION REASON FOR EVALUATION: CHANGE OF CONDITION ON SACRALCOCCYX WOUND INTEGUMENTARY: SACRALCOCCYX PRESSURE ULCER STAGE II 6X7X0.1 CM SMALL SEROUS DRAINAGE, NO ODOR, SURROUNDING REDNESS AREA 8X8 CM WITH DENUDED SKIN INDICATE FURTHER DAMAGE BILATERAL HEELS BLANCHABLE REDNESS RECOMMENDATIONS: -CLEANSE SACRALCOCCYX PRESSURE ULCER WITH NS. PAT DRY, APPLY HYDROGEL WITH ADAPTIC DRESSING AND COVER WITH DRY DRESSING QD AND PRN IF SOILING -TURN AND REPOSITION PATIENT Q2H TO LEFT AND RIGHT SIDE ONLY TO OFFLOAD SACRALCOCCYX -ASSESS AND MONITOR SKIN CONDITION DURING POSITION CHANGE, PLEASE PAY ATTENTION TO SACRALCOCCYX AND HEELS -OFFLOAD BILATERAL HEELS BY PLACING PILLOWS UNDER CALVES AT ALL TIMES, UNLESS OTHERWISE CONTRAINDICATED -PRESSURE REDISTRIBUTION SURFACE THERAPY -KEEP SKIN CLEAN AND DRY AT ALL TIMES. CONTINUE ALL OTHER RECOMMENDATIONS FROM PREVIOUS CONSULT. SPOKE TO SON LAST CONSULT AND DISCUSSED WITH HIM THE COMORBIDITIES FOR SKIN BREAKS AND DELAY WOUND HEALING
[2017-06-11] MEDS: FERRIC GLUCONATE 125 MG in NACL 0.9% 100 ML IV SCH (12:06)
--- NOTE | 2017-06-11 12:07 | NUR ---
FLACC 0 AND NO S/SX OF RESPIRATORY DISTRESS NOTED. WOUND CARE NURSE REASSESSED THE WOUND ON THE SACROCOCCYX AND PICTURE TAKEN.
--- NOTE | 2017-06-11 13:00 | NUR ---
VENT CHECK, NO SXN REQUIRED AT THIS TIME, AIRWAY IS PATENT AND PT IS RESTING
[2017-06-11] MEDS: SKINTEGRITY HYDROGEL TP SCH (13:19)
--- NOTE | 2017-06-11 13:48 | NUR ---
CONTINUE ON SAME VENTILATOR SETTING AND RESPIRATION ARE EVEN AND UNLABORED. VITAL SIGN STABLE. PT TOLERATED G-TUBE FEEDING. WILL CONTINUE TO MONITOR.
--- NOTE | 2017-06-11 15:00 | NUR ---
VENT CHECK, SXN PT SMALL AMT OF CREAM COLOR SECRETIONS, B\S ARE CLEAR AND AIRWAY IS PATENT
--- NOTE | 2017-06-11 15:30 | NUR ---
INSERTED PERIPHERAL IV LINE ON LEFT FOREARM, GOOD BLOOD RETURN NOTED. NO S/SX OF ACUTE DISTRESS NOTED. WILL CONTINUE TO MONITOR.
--- NOTE | 2017-06-11 15:49 | NUR ---
06/11/17 RD FOLLOW UP COMPLETED PLEASE REFER TO NUTRITION PROGRESS NOTE UNDER CARE ACTIVITY FOR ESTIMATED NUTRITION NEEDS. RD RECOMMENDATIONS: 1. CONTINUE NUTRITION SUPPORT DIABETISOURCE 250 ML Q6H, TOLERATED AND PER MD ORDERS. 2. RECOMMEND ADDING PROSOURCE TID FOR ADDITIONAL 180 KCAL AND [address] TO FOLLOW-UP 2-3 DAYS, HIGH RISK. MARY AMEZQUITA RD
--- NOTE | 2017-06-11 17:00 | NUR ---
VENT CHECK, SXN PT SMALL AMT OF CLEAR SECRETIONS, B\S ARE CLEAR AND TRACH CARE DONE: CHANGED TRACH GAUZE
--- NOTE | 2017-06-11 18:00 | NUR ---
NOTIFIED TO DR. HILLIARD FOR RD RECOMMENDATION. WILL FOLLOW UP ON ORDER.
--- NOTE | 2017-06-11 19:20 | NUR ---
REPORT GIVEN AND ENDORSED CARE TO MINOR VANESSA. PT YUN.
--- NOTE | 2017-06-11 19:30 | NUR ---
RECEIVED PT ON THE SAME VENT SETTINGS, ALARMS ON, VITALS STABLE, MED NEB IN LINE, SX SMALL THIN WHITE SECRETION, NO DISTRESS NOTED
--- NOTE | 2017-06-11 19:30 | NUR ---
RECEIVED REPORT FROM BALYNE RN. PATIENT IS NONVERBAL, UNRESPONSIVE, EYES DO NOT TRACK, AND UNABLE TO FOLLOW SIMPLE COMMANDS. PATIENT IS TRACH TO VENT WITH SETTINGS OF FIO2 28%, RR 14, TV 500, AND PEEP 5. RHONCHI HEARD UPON AUSCULTATION. BOWEL SOUNDS ARE PRESENT. THERE IS A G-TUBE IN PLACE. WEST CATHETER IN PLACE DRAINING TO GRAVITY WITH MODERATE AMOUNT OF YELLOW URINE NOTED IN WEST BAG. SCDS IN PLACE FOR VTE PROPHYLAXIS. THERE IS A DOUBLE LUMEN PICC IN THE MARIEL WITH NS AT 5 ML/HR TKO. THERE IS ALSO A #22 IN THE LEFT FOREARM SALINE LOCK. VAP ORAL CARE RENDERED. VSS AND PATIENT IS AFEBRILE. HOB AT 30 DEGREES WITH BED IN LOW POSITION. CONTINUE TO MONITOR PATIENT.
--- NOTE | 2017-06-11 21:00 | NUR ---
DR. SPANGLER PRESENT ON UNIT. UPDATED ON PATIENT'S STATUS. NO NEW ORDERS GIVEN AT THIS TIME.
--- NOTE | 2017-06-11 21:05 | NUR ---
PATIENT REPOSITIONED FOR COMFORT. SUCTIONED TRACH WITH SMALL AMOUNT OF CREAMY SECRETIONS NOTED. HOB AT 30 DEGREES WITH BED IN LOW POSITION. CONTINUE TO MONITOR PATIENT.
[2017-06-11] MEDS: ATORVASTATIN 20 MG TAB PO SCH (21:31)
--- NOTE | 2017-06-11 21:56 | NUR ---
TOLERATED DUE MEDICATIONS. WILL CONTINUE TO MONITOR PATIENT.
--- NOTE | 2017-06-11 23:30 | NUR ---
BLOOD SUGAR IS 93. NO INSULIN COVERAGE NEEDED. VAP ORAL CARE RENDERED. SUCTIONED TRACH WITH SMALL AMOUNT OF CREAMY SPUTUM NOTED. HOB AT 30 DEGREES WITH BED IN LOW POSITION. CONTINUE TO MONITOR PATIENT.
[2017-06-12] VITALS (23 sets, daily range): BP systolic 60–135; BP diastolic 44–73
--- NOTE | 2017-06-12 00:05 | NUR ---
REPOSITIONED PATIENT FOR COMFORT. CONTINUE TO MONITOR PATIENT.
--- NOTE | 2017-06-12 01:30 | NUR ---
VENT CK DONE, NO CHANGES IN PT STATUS, NO DISTRESS
--- NOTE | 2017-06-12 02:30 | NUR ---
PATIENT REPOSITIONED. NO SIGNS OF RESPIRATORY DISTRESS NOTED. HOB AT 30 DEGREES WITH BED IN LOW POSITION. CONTINUE TO MONITOR PATIENT.
--- NOTE | 2017-06-12 03:05 | NUR ---
VAP ORAL CARE RENDERED.
--- NOTE | 2017-06-12 03:45 | NUR ---
PATIENT HAD MODERATE SIZE BM OF PASTY BROWN STOOL. COMPLETE BED BATH, PERINEAL CARE, AND CATHETER CARE GIVEN. CHANGED BED LINENS AND GOWN. REPOSITIONED PATIENT FOR COMFORT. SUCTIONED PATIENT WITH MINIMAL AMOUNT OF CREAMY SPUTUM NOTED. HOB AT 30 DEGREES WITH BED IN LOW POSITION. CONTINUE TO MONITOR PATIENT.
[2017-06-12] MEDS: METOCLOPRAMIDE 10 MG/2 ML INJ VIAL IVP SCH ×3 (04:19→20:13)
[2017-06-12] MEDS: MEROPENEM 1,000 MG in NACL 0.9% 100 ML IV SCH ×3 (04:21→20:14)
[2017-06-12] MEDS: BLOOD GLUCOSE MONITORING 1 DEV DEV FS SCH ×3 (05:11→17:49)
--- NOTE | 2017-06-12 05:45 | NUR ---
VENT CK DONE, TRACK CARE DONE, CHANGED HNE AND DRESSING, VITALS STABLE , NO DISTRESS
[2017-06-12 05:53] LABS: ANION GAP 9.3 (8-16); CARBON DIOXIDE 27.7 mmol/L (21-32); CREATININE 0.9 mg/dL (0.6-1.3)
[2017-06-12 05:58] LABS: BASOPHILS # (AUTO) 0.2 K/uL (0.00-0.22); BASOPHILS % (AUTO) 2.6 % (0.0-2.0); EOSINOPHILS # (AUTO) 0.4 K/uL (0-0.4); LYMPHOCYTES # (AUTO) 2.4 K/uL (2.5-16.5); LYMPHOCYTES % (AUTO) 25.2 % (20.5-51.1); MEAN CORPUSCULAR HEMOGLOBIN 30 pg (27-31); MEAN CORPUSCULAR HGB CONC 32 g/dL (33-37); MEAN CORPUSCULAR VOLUME 92 fL (80-94); MONOCYTES # (AUTO) 0.6 K/uL (0.8-1.0); MONOCYTES % (AUTO) 6.3 % (1.7-9.3); NEUTROPHILS # (AUTO) 5.9 K/uL (1.8-7.7); NEUTROPHILS % (AUTO) 61.9 % (42.2-75.2); PLATELET COUNT (AUTO) 452 K/uL (140-450); RED BLOOD CELL COUNT(AUTO) 2.72 MIL/uL (4.20-5.40); RED CELL DISTRIBUTION WIDTH 15.6 % (11.6-13.7); WHITE BLOOD COUNT (AUTO) 9.5 K/uL (4.8-10.8)
[2017-06-12] MEDS: FLUCONAZOLE 100 MG TAB PO SCH (06:00)
[2017-06-12] MEDS ORDERED: FLUCONAZOLE 100 MG TAB ONE (06:05)
[2017-06-12] MEDS: LANSOPRAZOLE 30 MG CAPDR GT SCH ×2 (06:47→17:17)
[2017-06-12] MEDS: ALBUTEROL SULFATE/IPRATROPIU 3 ML SOL IH SCH ×3 (07:03→19:11)
--- NOTE | 2017-06-12 07:10 | NUR ---
NO CHANGES IN PATIENT'S CONDITION. ALL PATIENT'S NEEDS ATTENDED TO DURING SHIFT. ENDORSED CONTINUITY OF CARE TO VERONICA GAXIOLA.
--- NOTE | 2017-06-12 07:30 | NUR ---
RECEIVED REPORT FROM NIGHT NURSE. PT IS UNRESPONSIVE, OPENS EYES, UNABLE TO FOLLOW COMMANDS. NORMAL SINUS RHYTHM ON MONITOR. TRACH TO VENT: AC 14, FIO2 28%, TV 500, PEEP 5. BILATERAL RHONCHI NOTED. NO SOB OR ACUTE DISTRESS AT THIS TIME. VS STABLE. PICC LINE DOUBLE LUMEN TO RIGHT UPPER ARM, RECEIVING ORDERED IV FLUID. PERIPHERAL IV #22 TO KEFT FOREARM SALINE LOCKED. ABDOMEN SOFT, NONTENDER, BOWEL SOUNDS PRESENT. G-TUBE IN PLACE, PLACEMENT CHECKED, NO RESIDUALS AT THIS TIME. WEST CATH IN PLACE FLOWING URINE TO GRAVITY DRAINAGE BAG. SCDS IN PLACE FOR VTE PROPHYLAXIS. PADDED SIDE RAILS PRESENT FOR SEIZURE PRECAUTION. HOB 30 DEGREES. BED IN LOW POSITION AND CALL LIGHT WITHIN REACH. WILL CONTINUE TO MONITOR.
--- NOTE | 2017-06-12 07:40 | NUR ---
DR. KISER AND RESIDENT GROUP IN TO SEE PT. WILL FOLLOW UP ON ORDERS.
[2017-06-12] MEDS: LACTULOSE 20 GM/30 ML UDC GT SCH (09:02)
[2017-06-12] MEDS: DOCUSATE 100 MG/10 ML UDC GT SCH (09:02)
[2017-06-12] MEDS: FERROUS SULFATE 300 MG/5 ML UDC GT SCH ×2 (09:02→20:15)
[2017-06-12] MEDS: ASCORBIC ACID 500 MG TAB GT SCH (09:03)
[2017-06-12] MEDS: SENNA 8.6 MG TAB PO SCH (09:03)
[2017-06-12] MEDS: PHENYTOIN 100 MG/4 ML UDC GT SCH ×2 (09:03→20:12)
[2017-06-12] MEDS: levETIRAcetam 100 MG/ML ORASYR GT SCH ×2 (09:03→20:12)
[2017-06-12] MEDS: ZINC SULF 220 MG CAP GT SCH (09:03)
[2017-06-12] MEDS: LACTOBACILLUS RHAMNOSUS GG 1 EACH CAP PO SCH (09:03)
[2017-06-12] MEDS: LISINOPRIL 10 MG TAB GT SCH (09:04)
[2017-06-12] MEDS: GLYCOPYRROLATE 1 MG TAB GT SCH ×2 (09:04→20:13)
[2017-06-12] MEDS: THIAMINE 100 MG TAB GT SCH (09:04)
[2017-06-12] MEDS: POTASSIUM CHLORIDE 20% 40 MEQ/15 ML UDC GT SCH ×2 (09:04→20:12)
[2017-06-12] MEDS: GENTAMICIN 80 MG in DEXTROSE 5% 100 ML IV SCH (09:25)
--- NOTE | 2017-06-12 09:26 | NUR ---
MORNING MEDICATIONS GIVEN. PT TOLERATED WELL. WILL CONTINUE TO MONITOR.
--- NOTE | 2017-06-12 09:35 | NUR ---
DR. ENRIQUE IN TO SEE PT. WILL FOLLOW UP ON ORDERS.
--- NOTE | 2017-06-12 10:00 | NUR ---
DR. CASIANO MADE AWARE THAT ONE OF THE PICC LINE LUMENS IS CLOGGED. WILL FOLLOW UP WITH NEW ORDERS
[2017-06-12] MEDS ORDERED: ALTEPLASE 2 MG VIAL MC SCH (10:37)
[2017-06-12] MEDS: FERRIC GLUCONATE 125 MG in NACL 0.9% 100 ML IV SCH (11:43)
--- NOTE | 2017-06-12 12:10 | NUR ---
REPOSITIONED AND SUCTIONED PT. PT TOLERATED WELL. NO SOB NOTED. HOB 30 DEGREES. BED IN LOW POSITION. SAFETY MEASURES ENSURED. WILL CONTINUE TO MONITOR.
[2017-06-12] MEDS: SKINTEGRITY HYDROGEL TP SCH (13:14)
--- NOTE | 2017-06-12 14:58 | NUR ---
CATHFLO PLACED TO DE-CLOG PICC LINE. WILL REASSESS IN 30 MINUTES.
--- NOTE | 2017-06-12 15:31 | NUR ---
PICC LINE PATENT. GOOD BLOOD RETURN NOTED FROM BOTH PICC LINE LUMENS. FLUSHED WITH NORMAL SALINE. WILL CONTINUE TO MONITOR.
--- NOTE | 2017-06-12 17:05 | NUR ---
NO CHANGE OF CONDITION AT THIS TIME. VITAL SIGNS STABLE. NO SOB OR ACUTE DISTRESS NOTED AT THIS TIME. SAFETY MEASURES ENSURE. WILL CONTINUE TO MONITOR.
--- NOTE | 2017-06-12 18:00 | NUR ---
DR. DUARTE IN TO SEE PT. PT IS STABLE. NO S/SX OF ACUTE DISTRESS. WILL FOLLOW UP ON ORDERS.
--- NOTE | 2017-06-12 19:18 | NUR ---
REPORT GIVEN TO NIGHT NURSE FOR CONTINUITY OF CARE. PT IS IN STABLE CONDITION.
--- NOTE | 2017-06-12 19:30 | NUR ---
RECEIVED PT FROM AM SHIFT, PT IS LETHARGIC,OPEN EYES FOR MILD PAIN. CONT ON TRACH TO VENT. TRACH PORTEX 7. VENT SETTING AC 14 TV 500 FIO2 28 AND PEEP 5 TOLERATED WELL. NO S/S OF RESP DISTRESS,NO SOB. RHONCHI TO BILATERAL LUNGS.SUCTION GIVEN PRN WITH SMALL WHITE SECRETION. HOB UP 30-45 DEGREE ALL THE TIMES. NO S/S OF PAIN OR DISCOMFORT NOTED,SR ON MONITOR. PICC LINE TO MARIEL DOUBLE LUMEN WITH GOOD BLOOD RETURN NOTE. CONT ON NS AT 5 CC/HR.SALINE LOCK /PERIPHERAL LINE NO 22 GAUGE TO LFA INTACT WELL.GT TO LEFT UPPER ABD. CONTINUE ON GT FEEDING DIABETIC SOURCE AT 250 ML Q 6HRS AND H20 20 ML Q 6HRS TOLERATED WELL. 2 ML RESIDUAL NOTED. ACTIVE BOWEL SOUNDS TO ALL QUADRANT. ABD ROUND SOFT NON DISTENDED. HERNIA ON ABD. BUE AND BLE EDEMA NON PITTING. F/C INPLACE WITH YELLOW CLEAR COLOR ON THE BSD BAG. CALL LIGHT BETWEEN REACH.
[2017-06-12] MEDS: ATORVASTATIN 20 MG TAB PO SCH (20:13)
--- NOTE | 2017-06-12 20:30 | NUR ---
REPOSITION PT FOR COMFORT. VAP ORAL CARE GIVEN. NIGHT MEDICATION GIVEN TOLERATED WELL.
--- NOTE | 2017-06-12 21:20 | NUR ---
COME TO SEE PT,NO NEW ORDER AT THIS TIME.
--- NOTE | 2017-06-12 23:30 | NUR ---
BLOOD SUGAR 106 NO INSULIN COVERAGE NEEDED. SKIN WARM TO TOUCH.VAP ORAL CARE GIVEN.
[2017-06-13] VITALS (24 sets, daily range): BP systolic 86–130; BP diastolic 55–81
[2017-06-13] MEDS: BLOOD GLUCOSE MONITORING 1 DEV DEV FS SCH ×4 (00:09→17:17)
--- NOTE | 2017-06-13 00:34 | NUR ---
TUBE FEEDING GIVEN ORDER TOLERATED WELL. PT SLEEPING NO S/S OF RESP DISTRESS.NO SOB.
[2017-06-13] MEDS: GENTAMICIN 80 MG in DEXTROSE 5% 100 ML IV SCH ×2 (02:15→21:47)
--- NOTE | 2017-06-13 02:33 | NUR ---
REPOSITION FOR COMFORT. IV ABT GIVEN ORDERED.
--- NOTE | 2017-06-13 04:00 | NUR ---
VAP ORAL CARE GIVEN TOLERATED WELL,PT AWAKE NOT FOLLOW COMMANDS.
[2017-06-13 04:52] LABS: BASOPHILS # (AUTO) 0.4 K/uL (0.00-0.22); BASOPHILS % (AUTO) 4.1 % (0.0-2.0); EOSINOPHILS # (AUTO) 0.5 K/uL (0-0.4); EOSINOPHILS % (AUTO) 4.9 % (0.0-4.0); HEMOGLOBIN 8.7 g/dL (12.0-16.0); LYMPHOCYTES # (AUTO) 2.4 K/uL (2.5-16.5); LYMPHOCYTES % (AUTO) 22.4 % (20.5-51.1); MEAN CORPUSCULAR HEMOGLOBIN 30 pg (27-31); MEAN CORPUSCULAR HGB CONC 32 g/dL (33-37); MEAN CORPUSCULAR VOLUME 93 fL (80-94); MONOCYTES # (AUTO) 0.6 K/uL (0.8-1.0); MONOCYTES % (AUTO) 5.7 % (1.7-9.3); NEUTROPHILS % (AUTO) 62.9 % (42.2-75.2); PLATELET COUNT (AUTO) 485 K/uL (140-450); RED BLOOD CELL COUNT(AUTO) 2.91 MIL/uL (4.20-5.40); RED CELL DISTRIBUTION WIDTH 15.2 % (11.6-13.7); WHITE BLOOD COUNT (AUTO) 10.9 K/uL (4.8-10.8)
[2017-06-13] MEDS: METOCLOPRAMIDE 10 MG/2 ML INJ VIAL IVP SCH ×3 (04:52→21:15)
[2017-06-13] MEDS: MEROPENEM 1,000 MG in NACL 0.9% 100 ML IV SCH ×3 (04:53→21:14)
--- NOTE | 2017-06-13 05:21 | NUR ---
REGLAN AND IV ABT GIVEN TOLERATED WELL.AM CARE GIVEN,F/C CARE GIVEN,NOTED 1600 ML CLEAR YELLOW URINE.SMALL BM X1.
[2017-06-13 05:53] LABS: ANION GAP 7.7 (8-16); CARBON DIOXIDE 25.6 mmol/L (21-32); CREATININE 0.9 mg/dL (0.6-1.3); POTASSIUM 4.3 mmol/L (3.5-5.1)
--- NOTE | 2017-06-13 06:15 | NUR ---
DR SANTIAGO COME ,NEW ORDER TO CHANGE DIFLUCAN TO IV. MED GIVEN ORDER TOLERATED WELL AT THIS TIME. GT FEEDING DIABETIC SOURCE AT 250 CC AND H20 ORDER GIVEN AND TOLERATED WELL,NO RESIDUAL NOTED.
[2017-06-13] MEDS: ALBUTEROL SULFATE/IPRATROPIU 3 ML SOL IH SCH ×3 (06:59→19:28)
[2017-06-13] MEDS ORDERED: FLUCONAZOLE 400 MG/NS PREMIX 200 ML IV SCH (07:00)
--- NOTE | 2017-06-13 07:14 | NUR ---
REPORT GIVEN TO VERONICA GAXIOLA, PT IS STABLE AT THIS TIME.
--- NOTE | 2017-06-13 07:30 | NUR ---
RECEIVED REPORT FROM NIGHT NURSE. PT IS AWAKE, OPENS EYES, UNABLE TO FOLLOW SIMPLE COMMANDS. FLACC 0. NO SOB OR OTHER SIGNS OF ACUTE DISTRESS NOTED. NORMAL SINUS RHYTHM. PT IS TRACH TO VENT: AC 14, FIO2 28%, TV 500, PEEP 5. BILATERAL LUNGS CLEAR UPON AUSCULTATION AT THIS TIME. PICC LINE TO RIGHT UPPER ARM PATENT AND INTACT, GOOD BLOOD RETURN NOTED. PERIPHERAL IV #22 TO LEFT FOREARM PATENT AND INTACT, SALINE LOCKED. G-TUBE IN PLACE, PLACEMENT CHECKED. NO RESIDUALS. ABDOMEN SOFT, NONTENDER. ABDOMINAL HERNIA NOTED. WEST CATH IN PLACE, DRAINING CLEAR YELLOW URINE. SCDS IN PLACE FOR VTE PROPHYLAXIS. PADDED SIDE RAILS PRESENT FOR SEIZURE PRECAUTION. HOB 30 DEGREES. BED IN LOWEST POSITION. WILL CONTINUE TO MONITOR.
[2017-06-13] MEDS: LANSOPRAZOLE 30 MG CAPDR GT SCH ×2 (07:44→16:01)
--- NOTE | 2017-06-13 08:10 | NUR ---
DR. KISER AND RESIDENT GROUP IN TO SEE PT. WILL FOLLOW UP WITH NEW ORDERS.
[2017-06-13] MEDS: POTASSIUM CHLORIDE 20% 40 MEQ/15 ML UDC GT SCH ×2 (08:20→21:14)
[2017-06-13] MEDS: levETIRAcetam 100 MG/ML ORASYR GT SCH ×2 (08:21→21:15)
[2017-06-13] MEDS: FERROUS SULFATE 300 MG/5 ML UDC GT SCH ×2 (08:21→21:15)
[2017-06-13] MEDS: PHENYTOIN 100 MG/4 ML UDC GT SCH ×2 (08:21→21:14)
[2017-06-13] MEDS: LACTULOSE 20 GM/30 ML UDC GT SCH (08:21)
[2017-06-13] MEDS: DOCUSATE 100 MG/10 ML UDC GT SCH (08:21)
[2017-06-13] MEDS: THIAMINE 100 MG TAB GT SCH (08:22)
[2017-06-13] MEDS: LACTOBACILLUS RHAMNOSUS GG 1 EACH CAP PO SCH (08:22)
[2017-06-13] MEDS: ZINC SULF 220 MG CAP GT SCH (08:22)
[2017-06-13] MEDS: ASCORBIC ACID 500 MG TAB GT SCH (08:22)
[2017-06-13] MEDS: SENNA 8.6 MG TAB PO SCH (08:22)
[2017-06-13] MEDS: LISINOPRIL 10 MG TAB GT SCH (08:22)
[2017-06-13] MEDS: GLYCOPYRROLATE 1 MG TAB GT SCH ×2 (08:24→21:15)
--- NOTE | 2017-06-13 08:40 | NUR ---
MEDICATIONS ADMINISTERED. PT TOLERATED WELL. WILL CONTINUE TO MONITOR.
--- NOTE | 2017-06-13 10:07 | NUR ---
REPOSITIONED, CLEANED AND SUCTIONED PT. PT TOLERATED WELL. HOB KEPT 30 DEGREES AND SAFETY MEASURES ENSURED.
[2017-06-13] MEDS: FERRIC GLUCONATE 125 MG in NACL 0.9% 100 ML IV SCH (11:43)
--- NOTE | 2017-06-13 12:02 | NUR ---
NO CHANGE OF CONDITION AT THIS TIME. REPOSITIONED AND PROVIDED ORAL CARE. PT TOLERATED WELL. VITAL SIGNS STABLE. NO ACUTE DISTRESS NOTED. WILL CONTINUE TO MONITOR.
[2017-06-13] MEDS: SKINTEGRITY HYDROGEL TP SCH (13:27)
--- NOTE | 2017-06-13 14:00 | NUR ---
CHECKED ON PT. NO SOB OR S/SX ACUTE DISTRESS NOTED. REPOSITIONED AND PT TOLERATED WELL. VS STABLE. HOB 30 DEGREES. BED IN LOW POSITION.
--- NOTE | 2017-06-13 15:55 | NUR ---
CLEANED, REPOSITIONED AND AND PROVIDED ORAL CARE. NO SIGNS OF ACUTE DISTRESS AT THIS TIME.
--- NOTE | 2017-06-13 17:51 | NUR ---
NO CHANGE OF CONDITION AT THIS TIME. REPOSITIONED AND SUCTIONED PT. PT TOLERATED WELL. FLACC 0. VS STABLE. WILL CONTINUE TO MONITOR.
--- NOTE | 2017-06-13 18:30 | NUR ---
CHECKED ON PT. SLEEPING COMFORTABLY AT THIS TIME. NO SOB OR ACUTE DISTRESS NOTED. WILL CONTINUE TO MONITOR.
--- NOTE | 2017-06-13 19:24 | NUR ---
REPORT GIVEN TO NIGHT NURSE FOR CONTINUITY OF CARE. PT IS IN STABLE CONDITION.
--- NOTE | 2017-06-13 20:05 | NUR ---
RECEIVED REPORT FROM MINOR MARTIN. INITIAL ASSESSMENT COMPLETED. VITAL SIGNS WNL. AFEBRILE. TRACH TO VENT. AC FIO2 28, R 14, TV 500, PEEP 5. GTUBE TO FEEDING. BOLUS FEEDING 250ML Q6H. NO RESIDUAL NOTED. MARIEL PICC LINE PATENT. DRESING DRY AND INTACT. ABLE TO GET BLOOD RETURN. WEST CATHETER IN PLACE. DRAINING WELL. SCD ON. HOB ELEVATED AT 30 DEGREES. FEET ELEVATED. BED AT LOW POSITION. ALL SAFETY PRECAUTIONS IN PLACE. CALL LIGHT WITHIN REACH. WILL CONTINUE TO MONITOR PT.
[2017-06-13] MEDS: ATORVASTATIN 20 MG TAB PO SCH (21:15)
--- NOTE | 2017-06-13 21:30 | NUR ---
DR SPANGLER AT BEDSIDE TO SEE PT. WILL FOLLOW-UP WITH ANY NEW ORDERS.
--- NOTE | 2017-06-13 21:51 | NUR ---
ALL SCHEDULED MEDICATIONS ADMINISTERED. PT TOLERATED WELL. MARIEL PICC LINE PATENT. DRESSING INTACT. VS STABLE AT THIS TIME. NO ADVERSE SIDE EFFECT NOTED. HOB AT 30 DEGREES. ALL SAFETY PRECAUTIONS IN PLACE. WILL CONTINUE TO MONITOR PT.
[2017-06-14] VITALS (23 sets, daily range): BP systolic 84–127; BP diastolic 45–69
--- NOTE | 2017-06-14 00:05 | NUR ---
GTUBE TO FEEDING. DIABETISOURCE RUNNING AT 250ML WITH 20ML FLUSH AND TO RUN FOR 1 HOUR. HOB KEPT AT 30 DEGREES. ALL SAFETY PRECAUTIONS IN PLACE. CALL LIGHT WITHIN REACH.
[2017-06-14] MEDS: BLOOD GLUCOSE MONITORING 1 DEV DEV FS SCH ×4 (00:25→18:03)
--- NOTE | 2017-06-14 01:24 | NUR ---
PT VS STABLE AT THIS TIME. NO CHANGE OF CONDITION NOTED. SPONGE BATH GIVEN. LINENS CHANGED. PT HAD 1 LARGE PASTE TO WATERY BM. PT TOLERATED BEING TURNED WELL. ORAL CARE AND WEST CARE PROVIDED. PT REPOSITIONED. ALL SAFETY PRECAUTIONS IN PLACE. CALL LIGHT WITHIN REACH. BED AT LOW POSITION. WILL CONTINUE TO MONITOR PT.
--- NOTE | 2017-06-14 03:23 | NUR ---
PT LAYING IN BED. LOOKING COMFORTABLE. NO GRIMACING NOTED. FLACC 0. NO SOB NOTED. SIGNS OF DISTRESS. NO CHANGE IN CONDITION AT THIS TIME. HOB AT 30 DEGREES. BED AT LOW POSITION. SAFETY PRECAUTIONS IN PLACE. CALL LIGHT WITHIN REACH. WILL CONTINUE TO MONITOR PT.
[2017-06-14] MEDS: METOCLOPRAMIDE 10 MG/2 ML INJ VIAL IVP SCH ×3 (04:48→20:37)
[2017-06-14] MEDS: MEROPENEM 1,000 MG in NACL 0.9% 100 ML IV SCH ×3 (04:48→20:40)
--- NOTE | 2017-06-14 05:08 | NUR ---
SCHEDULED MEDICATIONS ADMINISTERED. PT TOLERATED WELL. ABLE TO DRAW BLOOD FROM MARIEL PICC LINE FOR SCHEDULED LABS. LINE FLUSHED AND PATENT. DRESSING DRY AND INTACT. URINE DRAINING WELL IN WEST CATHETER. VITAL SIGNS STABLE. NO CHANGE IN CONDITION. ALL SAFETY PRECAUTIONS IN PLACE. CALL LIGHT WITHIN REACH. FLACC 0. BED AT LOW POSITION. WILL CONTINUE TO MONITOR PT.
[2017-06-14 05:12] LABS: ANION GAP 9.9 (8-16); CARBON DIOXIDE 30.3 mmol/L (21-32); CREATININE 0.7 mg/dL (0.6-1.3); POTASSIUM 4.2 mmol/L (3.5-5.1)
--- NOTE | 2017-06-14 05:40 | NUR ---
DR. SANTIAGO AT BEDSIDE TO SEE PT. WILL FOLLOW-UP WITH ANY NEW ORDERS.
--- NOTE | 2017-06-14 06:10 | NUR ---
GTUBE TO FEEDING. DIABETISOURCE RUNNING 250 ML WITH H2O FLUSH 20ML FOR ONE HOUR. HOB ELEVATED AT 30 DEGREES. ALL SAFETY PRECAUTIONS IN PLACE. CALL LIGHT WITHIN REACH. WILL CONTINUE TO MONITOR PT.
[2017-06-14] MEDS: LANSOPRAZOLE 30 MG CAPDR GT SCH ×2 (06:40→16:17)
[2017-06-14] MEDS: ALBUTEROL SULFATE/IPRATROPIU 3 ML SOL IH SCH ×3 (06:47→19:13)
--- NOTE | 2017-06-14 06:52 | NUR ---
SCHEDULED MEDICATIONS ADMINISTERED. PT TOLERATED WELL. HOB KEPT AT 30 DEGREES. ALL SAFETY PRECAUTIONS IN PLACE. CALL LIGHT WITHIN REACH. WILL CONTINUE TO MONITOR PT.
[2017-06-14 06:55] LABS: HEMOGLOBIN 8.6 g/dL (12.0-16.0); MEAN CORPUSCULAR HEMOGLOBIN 30 pg (27-31); MEAN CORPUSCULAR HGB CONC 33 g/dL (33-37); MEAN CORPUSCULAR VOLUME 91 fL (80-94); PLATELET COUNT (AUTO) 451 K/uL (140-450); RED BLOOD CELL COUNT(AUTO) 2.87 MIL/uL (4.20-5.40); RED CELL DISTRIBUTION WIDTH 15.6 % (11.6-13.7)
--- NOTE | 2017-06-14 06:55 | NUR ---
RECEIVED TRACH PT ON VENT WITH A PORTEX 7 TRACH. SETTINGS AC 14, VT 500, PEEP 5 AND FIO2 28%. PT SUCTIONED OBTAINED SMALL AMOUNT OF CLEAR/WHITE SECRETIONS, AIRWAY IS PATENT AND TRACH IS SECURE. PT IS AWAKE BUT NOT ALERT. VENT IS PLUGGED INTO A RED OUTLET WITH ALARMS ON AND FUNCTIONING. AMBU BAG IS PRESENT AT BEDSIDE. WILL CONTINUE TO MONITOR.
--- NOTE | 2017-06-14 07:12 | NUR ---
REPORT GIVEN TO MINOR UGARTE AND MINOR MILTON FOR CONTINUITY OF CARE. PT CONDITION STABLE AT THIS TIME.
--- NOTE | 2017-06-14 07:15 | NUR ---
RECEIVED REPORT FROM ANTHONY. PT RESTING ON BED COMFORTABLY. PT ON TRACH TO VENT ON SETTING AC 14 FIO2 28% TV 500 PEEP 5. BREATHING SOUND DIMINISH. NO ACUTE DISTRESS. SKIN DRY AND WARM TO TOUCH. S/P SURGICAL INCISION ON HEAD AND ABDOMEN. PICC LINE DOUBLE LUMEN ON MARIEL. PERIPHERAL LINE ON LEFT FOREARM. GTUBE IN PLCE INTACT. BOWEL SOUND PRESENT IN ALL 4 QUADRANTS. SACROCOCCYX WOUND ON BACK. WEST'S CATH IN PLACE. WILL CONTINUE TO MONITOR.
--- NOTE | 2017-06-14 07:40 | NUR ---
SACROCOCCYX WOUND CARE PROVIDED. ORAL CARE PROVIDED. KEPT PT CLEAN AND DRY.
[2017-06-14 07:45] LABS: LYMPHOCYTES % (MANUAL) 19 % (20-46); MONOCYTES % (MANUAL) 5 % (5-12)
[2017-06-14 07:46] LABS: EOSINOPHILS % (MANUAL) 3 % (0-4)
--- NOTE | 2017-06-14 07:55 | NUR ---
REPOSITIONING DONE. PT RESTING IN BED COMFORTABLY.
--- NOTE | 2017-06-14 07:58 | NUR ---
DR. KISER AWARE OF ELEVATED WBC. NO NEW ORDER.
--- NOTE | 2017-06-14 07:59 | NUR ---
SEEN BY DR KISER, NO NEW ORDER AT THIS TIME.
--- NOTE | 2017-06-14 09:00 | NUR ---
LISINOPRIL WITHHELD. DR. SANTIAGO AWARE.
--- NOTE | 2017-06-14 09:02 | NUR ---
CALLED DR. SANTIAGO FOR PARAMETERS FOR BP MEDICATION LISINOPRIL. RECEIVED ORDER TO HOLD THE MEDICATION IF SYSTOLIC BP100 AND DIASTOLIC BP 60. Addendum: 06/14/17 at 1836 by Eden Crews RN CALLED DR. SANTIAGO FOR PARAMETERS FOR BP MEDICATION LISINOPRIL. RECEIVED ORDER TO HOLD THE MEDICATION IF SYSTOLIC BP LESS THAN 100 AND DIASTOLIC BP LESS THAN 60.
--- NOTE | 2017-06-14 09:13 | NUR ---
VENT CHECK COMPLETED. PT NOT IN ANY DISTRESS AT THIS TIME ,WILL CONTINUE TO MONITOR.
[2017-06-14] MEDS: POTASSIUM CHLORIDE 20% 40 MEQ/15 ML UDC GT SCH ×2 (09:31→20:37)
[2017-06-14] MEDS: LACTULOSE 20 GM/30 ML UDC GT SCH (09:32)
[2017-06-14] MEDS: DOCUSATE 100 MG/10 ML UDC GT SCH (09:32)
[2017-06-14] MEDS: FERROUS SULFATE 300 MG/5 ML UDC GT SCH ×2 (09:32→20:38)
[2017-06-14] MEDS: ASCORBIC ACID 500 MG TAB GT SCH (09:33)
[2017-06-14] MEDS: ZINC SULF 220 MG CAP GT SCH (09:33)
[2017-06-14] MEDS: GLYCOPYRROLATE 1 MG TAB GT SCH ×2 (09:33→20:38)
[2017-06-14] MEDS: LACTOBACILLUS RHAMNOSUS GG 1 EACH CAP PO SCH (09:33)
[2017-06-14] MEDS: SENNA 8.6 MG TAB PO SCH (09:34)
[2017-06-14] MEDS: levETIRAcetam 100 MG/ML ORASYR GT SCH ×2 (09:34→20:37)
[2017-06-14] MEDS: THIAMINE 100 MG TAB GT SCH (09:34)
[2017-06-14] MEDS: PHENYTOIN 100 MG/4 ML UDC GT SCH ×2 (09:35→20:39)
[2017-06-14] MEDS: FLUCONAZOLE 400 MG/NS PREMIX 200 ML IV SCH (09:36)
[2017-06-14] MEDS: LISINOPRIL 10 MG TAB GT SCH (09:37)
--- NOTE | 2017-06-14 10:00 | NUR ---
REPOSITIONING DONE. KEPT PT CLEAN AND DRY. PT SLEEPING IN BED COMFORTABLY. NO ACUTE DISTRESS. CONTINUE TO MONITOR.
--- NOTE | 2017-06-14 10:56 | NUR ---
06/14/17 RD FOLLOW UP COMPLETED PLEASE REFER TO NUTRITION PROGRESS NOTE UNDER CARE ACTIVITY FOR ESTIMATED NUTRITION NEEDS. RD RECOMMENDATIONS: 1. CONTINUE NUTRITION SUPPORT DIABETISOURCE 250 ML Q6H, TOLERATED AND PER MD ORDERS. --NOTE WITH CURRENT ORDER, PT ONLY MEETING ~65% OF ESTIMATED KCAL AND PROTEIN NEEDS 2. RECOMMEND ADDING PROSOURCE TID FOR ADDITIONAL 180 KCAL AND 45 GM PROTEIN --NOTE WITH PROTEIN SUPPLEMENTATION PT WILL BE MEETING 71% OF ESTIMATED KCAL NEEDS AND 100% OF ESTIMATED PROTEIN NEEDS 3. RD TO FOLLOW-UP 2-3 DAYS, HIGH RISK. MARY AMEZQUITA, RD
[2017-06-14] MEDS: FERRIC GLUCONATE 125 MG in NACL 0.9% 100 ML IV SCH (11:53)
--- NOTE | 2017-06-14 12:00 | NUR ---
REPOSITIONING DONE. ORAL CARE PROVIDED. ORAL MUCOSA PINK AND MOIST. HAIR CARE PROVIDED. KEPT PT CLEAN AND DRY.
[2017-06-14 12:06] LABS: HEMATOCRIT 28.8 % (36-48); HEMOGLOBIN 9.5 g/dL (12.0-16.0); MEAN CORPUSCULAR HEMOGLOBIN 30 pg (27-31); MEAN CORPUSCULAR HGB CONC 33 g/dL (33-37); MEAN CORPUSCULAR VOLUME 92 fL (80-94); PLATELET COUNT (AUTO) 531 K/uL (140-450); RED BLOOD CELL COUNT(AUTO) 3.12 MIL/uL (4.20-5.40); RED CELL DISTRIBUTION WIDTH 16.4 % (11.6-13.7)
[2017-06-14 12:43] LABS: EOSINOPHILS % (MANUAL) 4 % (0-4); LYMPHOCYTES % (MANUAL) 28 % (20-46); MONOCYTES % (MANUAL) 3 % (5-12)
[2017-06-14] MEDS: SKINTEGRITY HYDROGEL TP SCH (13:20)
--- NOTE | 2017-06-14 14:25 | NUR ---
CATHETER CARE PROVIDED. KEPT PT CLEAN DRY. REPOSITIONING DONE. PT SLEEPING IN BED COMFORTABLY. NO ACUTE DISTRESS NOTED.
[2017-06-14] MEDS: GENTAMICIN 80 MG in DEXTROSE 5% 100 ML IV SCH (15:14)
--- NOTE | 2017-06-14 15:31 | NUR ---
PT IS ASLEEP AT THIS TIME AND IS NOT SOB OR IN RESPIRATORY DISTRESS. NO CHANGES MADE TO VENT WILL CONTINUE TO MONITOR.
--- NOTE | 2017-06-14 16:00 | NUR ---
ORAL CARE PROVIDED. ORAL MUCOSA PINK AND MOIST. KEPT PT CLEAN AND DRY. REPOSITIONING DONE. PT SLEEPING IN BED COMFORTABLY.
--- NOTE | 2017-06-14 18:22 | NUR ---
PT SLEEPING IN BED COMFORTABLY. NO ACUTE DISTRESS NOTED. WILL CONTINUE TO MONITOR.
--- NOTE | 2017-06-14 20:00 | NUR ---
LETHARGIC. WITHDRAWS TO PAIN, SR ON THE MONITOR, TRACH TO VENT, NO DISTRESS, SUCTIONED WITH SMALL AMOUNT OF WHITE SECRETIONS. MARIEL PICC INTACT/PATENT, NO BLOOD RETURN OBTAINED FROM 2 PORTS, PICC SITE WITH NO SWELLING OR REDNESS NOTED. RECEIVING GT BOLUS FEEDING OF DIABETISOURCE 250 ML Q6H, TOLERATING FEEDING WELL. OPEN WOUND ON SACROCOCCYX AREA COVERED WITH OPTIFOAM, TURNED AND REPOSITIONED, FLACC 0, KEPT COMFORTABLE.
[2017-06-14] MEDS: ATORVASTATIN 20 MG TAB PO SCH (20:38)
--- NOTE | 2017-06-14 22:00 | NUR ---
PATIENT HAD LARGE AMOUNT OF BROWN SOFT MUCOIDY STOOL, BED BATH PROVIDED, COMPLETE LINEN CHANGED DONE. WEST CATHETER CARE DONE, REPOSITIONED TO LEFT SIDE, FLACC 0.
[2017-06-15] VITALS (14 sets, daily range): BP systolic 95–137; BP diastolic 56–88
--- NOTE | 2017-06-15 | NUR ---
BLOOD GLUCOSE 99 MG/DL, NO INSULIN COVERAGE GIVEN, GT BOLUS FEEDING STARTED.
--- NOTE | 2017-06-15 02:00 | NUR ---
SLEEPING, TURNED AND REPOSITIONED, NO RESPIRATORY DISTRESS, FLACC 0
--- NOTE | 2017-06-15 04:26 | NUR ---
PATIENT WITH SMALL SOFT GREENISH STOOL, PATIENT WASHED AND CLEANED. ORAL CARE WITH VAP KIT, TURNED AND REPOSITIONED, FLACC 0.
[2017-06-15] MEDS: METOCLOPRAMIDE 10 MG/2 ML INJ VIAL IVP SCH ×3 (04:31→20:42)
[2017-06-15] MEDS: MEROPENEM 1,000 MG in NACL 0.9% 100 ML IV SCH ×3 (04:32→20:43)
[2017-06-15] MEDS: BLOOD GLUCOSE MONITORING 1 DEV DEV FS SCH ×4 (05:46→18:26)
[2017-06-15] MEDS: LANSOPRAZOLE 30 MG CAPDR GT SCH ×2 (06:09→17:24)
--- NOTE | 2017-06-15 06:20 | NUR ---
AM CARE PROVIDED, TURNED TO RIGHT SIDE, NO RESPIRATORY DISTRESS, GT BOLUS FEEDING GIVEN, TURNED TO RIGHT SIDE, NO RESPIRATORY DISTRESS, FLACC 0, BLOOD GLUCOSE 111 MG/DL THIS MORNING.
[2017-06-15] MEDS: ALBUTEROL SULFATE/IPRATROPIU 3 ML SOL IH SCH ×3 (06:55→18:59)
--- NOTE | 2017-06-15 07:02 | NUR ---
RECEIVED TRACH PT PORTEX SIZE 7 ON VENT. SETTINGS AC 14, VT 500, PEEP 5 AND FIO2 28%. PT SUCTIONED OBTAINED SMALL AMOUNT OF THICK PALE YELLOW SECRETIONS, AIRWAY IS PATENT AND TRACH IS SECURE. PT IS ASLEEP, NOT IN RESPIRATORY DISTRESS. VENTILATOR IS PLUGGED INTO RED OUTLET WITH ALARMS ON AND FUNCTIONING. AMBU BAG IS PRESENT AT BEDSIDE. WILL CONTINUE TO MONITOR.
--- NOTE | 2017-06-15 07:10 | NUR ---
RECEIVED REPORT FROM [facility] SHIFT. PT RESTING IN BED COMFORTABLY. SKIN DRY AND WARM TO TOUCH. S/P SURGICAL INCISION ON HEAD. PT ON TRACH TO VENT ON SETTING AC MODE FIO2 28 RR 14 TV 500 PEEP 5. NO RESPIRATORY DISTRESS. RHONCHI PRESENT ON LUNGS AUSCULTATION. MARIEL PICC LINE DOUBLE LUMEN, INTACT. GTUBE IN PLACE. S/P SURGICAL SCABS ON ABDOMEN. SACROCOCCYX PRESSURE ULCER ON BACK. WEST'S CATH IN PLACE INTACT.
--- NOTE | 2017-06-15 08:00 | NUR ---
REPOSITIONING DONE. KEPT PT CLEAN AND DRY
[2017-06-15] MEDS: POTASSIUM CHLORIDE 20% 40 MEQ/15 ML UDC GT SCH ×2 (09:07→20:44)
[2017-06-15] MEDS: LACTULOSE 20 GM/30 ML UDC GT SCH (09:07)
[2017-06-15] MEDS: levETIRAcetam 100 MG/ML ORASYR GT SCH ×2 (09:08→20:42)
[2017-06-15] MEDS: GLYCOPYRROLATE 1 MG TAB GT SCH ×2 (09:08→20:42)
[2017-06-15] MEDS: FERROUS SULFATE 300 MG/5 ML UDC GT SCH ×2 (09:08→20:42)
[2017-06-15] MEDS: DOCUSATE 100 MG/10 ML UDC GT SCH (09:08)
[2017-06-15] MEDS: SENNA 8.6 MG TAB PO SCH (09:09)
[2017-06-15] MEDS: LISINOPRIL 10 MG TAB GT SCH (09:09)
[2017-06-15] MEDS: ASCORBIC ACID 500 MG TAB GT SCH (09:09)
[2017-06-15] MEDS: LACTOBACILLUS RHAMNOSUS GG 1 EACH CAP PO SCH (09:09)
[2017-06-15] MEDS: ZINC SULF 220 MG CAP GT SCH (09:10)
[2017-06-15] MEDS: THIAMINE 100 MG TAB GT SCH (09:10)
[2017-06-15] MEDS: PHENYTOIN 100 MG/4 ML UDC GT SCH ×2 (09:10→20:42)
[2017-06-15] MEDS: FLUCONAZOLE 400 MG/NS PREMIX 200 ML IV SCH (09:11)
--- NOTE | 2017-06-15 09:15 | NUR ---
PT RESTING IN BED COMFORTABLY. NO ACUTE DISTRESS NOTED. ON CONTINUOUS MONITORING.
--- NOTE | 2017-06-15 11:30 | NUR ---
ORAL CARE PROVIDED. ORAL MUCOSA PINK AND MOIST. KEPT PT CLEAN AND DRY
[2017-06-15] MEDS: FERRIC GLUCONATE 125 MG in NACL 0.9% 100 ML IV SCH (11:46)
--- NOTE | 2017-06-15 12:00 | NUR ---
REPOSITIONING DONE. PT RESTING IN BED COMFORTABLY.
[2017-06-15] MEDS: GENTAMICIN 300 MG in DEXTROSE 5% 100 ML IV SCH (12:40)
--- NOTE | 2017-06-15 12:45 | NUR ---
CATHETER CARE PROVIDED.
--- NOTE | 2017-06-15 12:45 | NUR ---
DR. ENRIQUE IN TO SEE PT. WILL FOLLOW UP ON ORDERS.
[2017-06-15] MEDS: SKINTEGRITY HYDROGEL TP SCH (13:00)
--- NOTE | 2017-06-15 13:25 | NUR ---
PT SUCTIONED OBTAINED LARGE AMOUNT OF THICK SECRETIONS. AIRWAY IS PATENT AND TRACH IS SECURE. WILL CONTINUE TO MONITOR.
--- NOTE | 2017-06-15 14:00 | NUR ---
REPOSITIONING DONE. PT SLEEPING IN BED COMFORTABLY.
--- NOTE | 2017-06-15 14:40 | NUR ---
GAVE REPORT TO THA GAXIOLA. PT WILL BE TRANSFERRED TO TELEMETRY UNIT 108B.
--- NOTE | 2017-06-15 14:45 | NUR ---
RECEIVED REPORT FROM YOAN WINDOW SHADE RING COVERER. WILL HAVE ROOM READY AND AWAIT PT'S ARRIVAL.
--- NOTE | 2017-06-15 14:54 | NUR ---
CALLED FAMILY, SPOKE WITH DAJA/ALBERT INFORMED THAT PT IS TRANSFERRING TO TELEMETRY UNIT 108B.
--- NOTE | 2017-06-15 15:10 | NUR ---
PT ARRIVED ON THE UNIT WITH 2 DELIVERY MANAGER, R/T, 2 RN STUDENTS. PT'S EYES ARE CLOSED. APHASIC. NO SIGNS OF DISTRESS. NOTED TRACH TO VENT. FIO2 28%, RATE 14, TV 500, PEEP 5, FLOW 40L/MIN. PT HAS GTUBE: DIABETISOURCE AC 250ML Q 6H, F20 FLUSH 20ML Q 6HR, HOLD IS RESIDUAL >200ML, RECHECK RESIDUAL AFTER 1 HR, RESUME FEEDING IF <50ML. PROSOURCE TID. PICC LINE DOUBLE LUMEN MARIEL, NS 5ML/HR TKO. SKIN: SACRAL PU, DRESSING DRY AND INTACT. WOUND CARE AND OPTIFOAM DRESSING CHANGED TODAY PER DELIVERY MANAGER. WEST CATHETER IN PLACE, 25ML CLEAR, YELLOW URINE IN BAG. SCD'S IN PLACE. FEEDING PUMP CONNECTED. PT ON TELE MONITOR. REPOSITIONED PT TO R SIDE, PILLOW UNDER CALVES. PT TOLERATED WELL. WILL CONTINUE TO MONITOR PT.
--- NOTE | 2017-06-15 15:20 | NUR ---
PT TRANSFERRED TO TELEMETRY WITHOUT INCIDENT. TRACH REMAINS SECURE AND STABLE. PT PLACED BACK ON VENT WITH DOCUMENTED SETTINGS. WILL CONTINUE TO MONITOR.
--- NOTE | 2017-06-15 15:33 | NUR ---
TRANSFERRED PT TO TELEMETRY UNIT BED 108B IN STABLE CONDITION.
--- NOTE | 2017-06-15 16:15 | NUR ---
PT IS IN BED WITH EYES OPEN BUT NOT ALERT. NO RESPIRATORY DISTRESS NOTED AT THIS TIME. NO CHANGES MADE TO THE VENTILATOR. PT SUCTIONED OBTAINED MODERATE AMOUNT OF THICK WHITE SECRETIONS, AIRWAY IS PATENT AND TRACH IS SECURE.
[2017-06-15 16:19] LABS: BASOPHILS # (AUTO) 0.2 K/uL (0.00-0.22); BASOPHILS % (AUTO) 1.1 % (0.0-2.0); EOSINOPHILS # (AUTO) 0.6 K/uL (0-0.4); EOSINOPHILS % (AUTO) 3.5 % (0.0-4.0); HEMATOCRIT 26.9 % (36-48); HEMOGLOBIN 8.6 g/dL (12.0-16.0); LYMPHOCYTES # (AUTO) 3.4 K/uL (2.5-16.5); LYMPHOCYTES % (AUTO) 20.5 % (20.5-51.1); MEAN CORPUSCULAR HEMOGLOBIN 30 pg (27-31); MEAN CORPUSCULAR HGB CONC 32 g/dL (33-37); MEAN CORPUSCULAR VOLUME 92 fL (80-94); MONOCYTES # (AUTO) 0.7 K/uL (0.8-1.0); MONOCYTES % (AUTO) 4.1 % (1.7-9.3); NEUTROPHILS # (AUTO) 11.5 K/uL (1.8-7.7); NEUTROPHILS % (AUTO) 70.8 % (42.2-75.2); PLATELET COUNT (AUTO) 461 K/uL (140-450); RED BLOOD CELL COUNT(AUTO) 2.92 MIL/uL (4.20-5.40); RED CELL DISTRIBUTION WIDTH 16.2 % (11.6-13.7); WHITE BLOOD COUNT (AUTO) 16.4 K/uL (4.8-10.8)
[2017-06-15 16:29] LABS: ANION GAP 12.2 (8-16); CARBON DIOXIDE 24.8 mmol/L (21-32); CREATININE 0.9 mg/dL (0.6-1.3)
--- NOTE | 2017-06-15 17:31 | NUR ---
CHECKED FOR GTUBE PLACEMENT AND PATENCY. RESIDUAL 25ML. ADMINISTERED PREVACID W/ APPLE JUICE. ADMINISTERED PROSOURCE W/ WATER. FLUSHED WITH 90MLS OF H2O. PT TOLERATED WELL. WILL WAIT ABOUT 30 MIN BEFORE STARTING FEEDING.
--- NOTE | 2017-06-15 17:48 | NUR ---
AREA AROUND STOMA CLEANED OF DRAINAGE, SLIGHT REDNESS NOTED. PT SUCTIONED OBTAINED SMALL AMOUNT OF THICK SECRETIONS, AIRWAY IS PATENT AND TRACH IS SECURE. NO CHANGES MADE TO VENT PT REMAINS ON AC 14, VT 500, PEEP 5 AND FIO2 28%.
--- NOTE | 2017-06-15 19:10 | NUR ---
ENDORSED PT TO THE GUARD ENTRANCE REGISTRAR NURSE AT BEDSIDE FOR CONTINUITY OF CARE. PT IS IN STABLE CONDITION.
--- NOTE | 2017-06-15 19:15 | NUR ---
RECEIVED PT ON BED, OPENS EYES TO SHAKING, NONVERBAL, WITH TRACH TO VENT, VITAL SIGNS STABLE, WITH GT TO BOLUS FEEDING Q6H WITH DIABETISOURCE, WEST CATHETER IN PLACE WITH YELLOW URINE, RT UPPER ARM PICC LINE [address], DRESSING DRY AND INTACT, MAINTAIN ON CONTACT PRECAUTION, REPOSITION Q2H AND OFFLOAD PRESSURE AREAS, SAFETY MEASURES IN PLACE, SCD TO BLE.
[2017-06-15] MEDS: ATORVASTATIN 20 MG TAB PO SCH (20:42)
--- NOTE | 2017-06-15 21:00 | NUR ---
DUE MEDS ADMINISTERED, REPOSITIONED AND OFFLOAD PRESSURE AREAS, ORAL CARE DONE WITH VAP KIT, SUCTION SECRETION PRN, ON SEIZURE AND ASPIRATION PRECAUTION, ALL NEEDS ANTICIPATED.
[2017-06-16] VITALS (7 sets, daily range): BP systolic 90–119; BP diastolic 49–67
--- NOTE | 2017-06-16 | NUR ---
PT OPEN EYES TO TOUCH, VITAL SIGNS TAKEN, BP ON THE LOW SIDE 92/53, ASYMPTOMATIC, NO DISTRESS NOTED, BM WITH LARGE SOFT BROWN STOOL, PERINEAL CARE DONE, DRESSING TO SACRAL AREA DRY AND INTACT, BLOOD SUGAR CHECKED WITH 83 RESULT, 250 ML BOLUS FEEDING STARTED, KEEP HOB ELEVATED AT ALL TIMES, CONTINUE TO MONITOR CLOSELY.
[2017-06-16] MEDS: BLOOD GLUCOSE MONITORING 1 DEV DEV FS SCH ×4 (00:24→23:32)
--- NOTE | 2017-06-16 04:00 | NUR ---
VITAL SIGNS TAKEN, BP ON THE LOW SIDE, ASYMPTOMATIC, ORAL CARE DONE WITH VAP KIT, SUCTION SECRETION VIA TRACH AND ORALLY, MONITORED CLOSELY.
--- NOTE | 2017-06-16 04:50 | NUR ---
BM WITH LARGE BROWN SOFT STOOL, PERINEAL CARE DONE, SACROCOCCYGEAL DRESSING SOILED, DRESSING CHANGED DONE, REPOSITIONED AND OFFLOAD PRESSURE AREAS, 10ML G-TUBE RESIDUAL NOTED, MONITORED CLOSELY.
[2017-06-16] MEDS: METOCLOPRAMIDE 10 MG/2 ML INJ VIAL IVP SCH ×3 (05:08→20:41)
[2017-06-16] MEDS: MEROPENEM 1,000 MG in NACL 0.9% 100 ML IV SCH ×3 (05:08→20:41)
[2017-06-16] MEDS: LANSOPRAZOLE 30 MG CAPDR GT SCH ×2 (06:30→16:25)
[2017-06-16] MEDS: ALBUTEROL SULFATE/IPRATROPIU 3 ML SOL IH SCH ×3 (07:00→19:07)
--- NOTE | 2017-06-16 07:07 | NUR ---
RECEIVED TRACH PT PORTEX SIZE 7 ON VENT. SETTINGS AC 14, VT 500, PEEP 5 AND FIO2 28%. PT SUCTIONED OBTAINED SMALL AMOUNT OF THICK WHITE SECRETIONS, AIRWAY IS PATENT AND TRACH IS SECURE. PT IS ASLEEP, NOT IN RESPIRATORY DISTRESS. VENTILATOR IS PLUGGED INTO RED OUTLET WITH ALARMS ON AND FUNCTIONING. AMBU BAG IS PRESENT AT BEDSIDE. WILL CONTINUE TO MONITOR.
--- NOTE | 2017-06-16 07:25 | NUR ---
PT SLEEPING, NO SIGNS OF DISTRESS, REPORT GIVEN TO MINOR ALMAZAN FOR CONTINUITY OF CARE.
--- NOTE | 2017-06-16 07:26 | NUR ---
RECEIVED REPORT AT BEDSIDE FOR CONTINUITY OF CARE. PT IS SLEEPING. NO SIGNS OF DISTRESS. NOTED THE TRACH TO VENT. ALL WITHIN NORMAL RANGE. GTUBE IN PLACE. 0600 FEEDING FINISHED. PICC LINE IN MARIEL, INFUSING NS 5ML FOR TKO. WEST CATH. DRAINED 200ML OF CLEAR YELLOW URINE. SCD'S IN PLACE. PER REFUELING RAMP ATTENDANT NURSE, PT HAD 2 LARGE BM, SACRAL DRESSING CHANGED THIS MORNING. WILL CONTINUE WITH MONITORING PT.
[2017-06-16 07:32] LABS: ANION GAP 13.1 (8-16); CARBON DIOXIDE 22.2 mmol/L (21-32); CREATININE 0.8 mg/dL (0.6-1.3); POTASSIUM 4.3 mmol/L (3.5-5.1)
[2017-06-16] MEDS: LISINOPRIL 10 MG TAB GT SCH (09:00)
[2017-06-16] MEDS: DOCUSATE 100 MG/10 ML UDC GT SCH (09:00)
[2017-06-16] MEDS: LACTULOSE 20 GM/30 ML UDC GT SCH (09:00)
[2017-06-16] MEDS: SENNA 8.6 MG TAB PO SCH (09:00)
[2017-06-16 09:03] LABS: BASOPHILS # (AUTO) 0.3 K/uL (0.00-0.22); BASOPHILS % (AUTO) 2.6 % (0.0-2.0); EOSINOPHILS # (AUTO) 0.5 K/uL (0-0.4); EOSINOPHILS % (AUTO) 3.6 % (0.0-4.0); HEMATOCRIT 26.1 % (36-48); HEMOGLOBIN 8.3 g/dL (12.0-16.0); LYMPHOCYTES # (AUTO) 2.7 K/uL (2.5-16.5); LYMPHOCYTES % (AUTO) 20.4 % (20.5-51.1); MEAN CORPUSCULAR HEMOGLOBIN 30 pg (27-31); MEAN CORPUSCULAR HGB CONC 32 g/dL (33-37); MEAN CORPUSCULAR VOLUME 94 fL (80-94); MONOCYTES # (AUTO) 0.5 K/uL (0.8-1.0); MONOCYTES % (AUTO) 3.7 % (1.7-9.3); NEUTROPHILS # (AUTO) 9.1 K/uL (1.8-7.7); NEUTROPHILS % (AUTO) 69.7 % (42.2-75.2); PLATELET COUNT (AUTO) 491 K/uL (140-450); RED BLOOD CELL COUNT(AUTO) 2.78 MIL/uL (4.20-5.40); WHITE BLOOD COUNT (AUTO) 13.1 K/uL (4.8-10.8)
[2017-06-16] MEDS: GLYCOPYRROLATE 1 MG TAB GT SCH ×2 (09:29→20:42)
[2017-06-16] MEDS: ZINC SULF 220 MG CAP GT SCH (09:29)
[2017-06-16] MEDS: LACTOBACILLUS RHAMNOSUS GG 1 EACH CAP PO SCH (09:29)
[2017-06-16] MEDS: THIAMINE 100 MG TAB GT SCH (09:30)
[2017-06-16] MEDS: ASCORBIC ACID 500 MG TAB GT SCH (09:30)
[2017-06-16] MEDS: FERROUS SULFATE 300 MG/5 ML UDC GT SCH ×2 (09:30→20:40)
[2017-06-16] MEDS: POTASSIUM CHLORIDE 20% 40 MEQ/15 ML UDC GT SCH ×2 (09:31→20:40)
[2017-06-16] MEDS: PHENYTOIN 100 MG/4 ML UDC GT SCH ×2 (09:32→20:40)
[2017-06-16] MEDS: levETIRAcetam 100 MG/ML ORASYR GT SCH ×2 (09:32→20:40)
[2017-06-16] MEDS: FLUCONAZOLE 400 MG/NS PREMIX 200 ML IV SCH (09:33)
--- NOTE | 2017-06-16 09:54 | NUR ---
CHECKED FOR PLACEMENT AND PATENCY. NO RESIDUAL. ADMINISTERED MORNING MEDS. HELD LACTULOSE, COLACE, AND LISINOPRIL. PT HAD 2 L BM LAST SHIFT AND THIS AM, DECREASED BP. PT TOLERATED WELL. WILL CONTINUE TO MONITOR PT.
--- NOTE | 2017-06-16 10:20 | NUR ---
DR BATES AND DR GONCALVES SAW PT. PLAN FOR TODAY: [place] [facility] CHUY, CHARGE NURSE WILL MAKE ARRANGEMENT FOR TRANSFER AND CONTACT [facility]. WILL CONTINUE TO MONITOR PT.
[2017-06-16] MEDS: FERRIC GLUCONATE 125 MG in NACL 0.9% 100 ML IV SCH (11:55)
--- NOTE | 2017-06-16 12:13 | NUR ---
ADMINISTERED FERRLECIT, PROSOURCE AND STARTED THE FEEDING. PT TOLERATING WELL. CHECKED FOR PLACEMENT, RESIDUAL-0. WILL CONTINUE TO MONITOR PT.
--- NOTE | 2017-06-16 12:30 | NUR ---
SPOKE WITH ALANA -RN FROM [facility] TO CHECK IF PT STILL HAS HER A BED. ALANA STATED THEY ARE UNABLE TO GIVE HER A BED TODAY. WE NEED TO CALL THEM BACK TOMORROW AT 8AM AND TALK TO [facility] ADMISSION COORDINATOR. DR. GONCALVES NOTIFIED.
[2017-06-16] MEDS: SKINTEGRITY HYDROGEL TP SCH (13:00)
[2017-06-16] MEDS: GENTAMICIN 300 MG in DEXTROSE 5% 100 ML IV SCH (13:34)
--- NOTE | 2017-06-16 14:14 | NUR ---
VENT CHECK COMPLETED, NO CHANGES MADE TO VENT. PT IS ASLEEP AT THIS TIME. NO RESPIRATORY DISTRESS NOTED. WILL CONTINUE TO MONITOR.
--- NOTE | 2017-06-16 16:30 | NUR ---
DR MERINO CAME. CONCERNED THAT HER WBC IS HIGHER TODAY, MIGHT BE SEPSIS. NOTIFIED HIM OF HER LOW BP. MD ORDERED NS 500ML BOLUS NOW AND START FLUIDS NS 75ML/HR. PUT IN ORDERS FOR MD. GAVE BOLUS AND WILL HANG FLUID THEREAFTER. PT RESTING COMFORTABLY.
[2017-06-16] MEDS ORDERED: NACL 0.9% 500 ML IV SCH (17:00)
--- NOTE | 2017-06-16 17:19 | NUR ---
VENT CHECK COMPLETED. NO CHANGES MADE TO VENT. PT IS ASLEEP IN BED NO SIGNS OF RESPIRATORY DISTRESS OR SOB. VENT ALARMS REMAIN ON AND FUNCTIONING. Addendum: 06/16/17 at 1720 by Akhil Armstrong RT AIRWAY IS PATENT AND TRACH REMAINS SECURE.
[2017-06-16] MEDS: NACL 0.9% 1,000 ML IV SCH (17:35)
--- NOTE | 2017-06-16 19:05 | NUR ---
ENDORSED PT TO THE FRUIT DRYER NURSE AT BEDSIDE FOR CONTINUITY OF CARE. PT IN STABLE CONDITION.
--- NOTE | 2017-06-16 19:10 | NUR ---
RECEIVED PT ON BED, OPENS EYES TO SHAKING, NONVERBAL, WITH TRACH TO VENT, VITAL SIGNS TAKEN, BP ON THE LOW SIDE 92/49, IVF INFUSING WELL AT 75ML/H VIA RT UA PICC LINE, NO SIGNS OF DISTRESS, WEST CATHETER IN PLACE WITH YELLOW URINE, MAINTAIN ON CONTACT PRECAUTION, REPOSITION Q2H AND OFFLOAD PRESSURE AREAS, SAFETY MEASURES IN PLACE, SCD TO BLE, ON SEIZURE AND ASPIRATION PRECAUTION.
[2017-06-16] MEDS: ATORVASTATIN 20 MG TAB PO SCH (20:41)
--- NOTE | 2017-06-16 21:00 | NUR ---
NO G-TUBE RESIDUAL NOTED, DUE MEDS ADMINISTERED, NO BM NOTED AT THIS TIME, REPOSITIONED AND OFFLOAD PRESSURE AREAS, ORAL CARE DONE WITH VAP KIT, ALL NEEDS ANTICIPATED.
--- NOTE | 2017-06-16 23:30 | NUR ---
BLOOD SUGAR CHECKED WITH 90 RESULT, NO G-TUBE RESIDUAL NOTED, 250ML DIABETISOURCE BOLUS FEEDING STARTED, VITAL SIGNS CHECKED, BP-87/50 MAP-65, DR WHITE MADE AWARE, SHE SAID TO CONTINUE MONITOR AND IF BP DROPS FURTHER WILL ORDER BOLUS, CONTINUE TO MONITOR CLOSELY.
[2017-06-17] VITALS: BP 87/50
--- NOTE | 2017-06-17 03:30 | NUR ---
VITAL SIGNS TAKEN, BP-97/59, NO RESP DISTRESS NOTED, IVF INFUSING WELL, MONITORED CLOSELY.
[2017-06-17 04:00] VITALS: BP 97/59
[2017-06-17] MEDS: MEROPENEM 1,000 MG in NACL 0.9% 100 ML IV SCH (04:50)
[2017-06-17] MEDS: METOCLOPRAMIDE 10 MG/2 ML INJ VIAL IVP SCH ×2 (04:50→12:25)
[2017-06-17] MEDS: NACL 0.9% 1,000 ML IV SCH (04:52)
[2017-06-17] MEDS: BLOOD GLUCOSE MONITORING 1 DEV DEV FS SCH ×2 (05:34→12:25)
--- NOTE | 2017-06-17 05:40 | NUR ---
AM LABS DRAWN VIA PICC LINE, PICC LINE DRESSING CHANGE, BLOOD SUGAR CHECKED WITH 85 RESULT, G-TUBE BOLUS FEEDING OF 250ML INITIATED, KEEP HOB ELEVATED, MONITORED CLOSELY.
--- NOTE | 2017-06-17 06:10 | NUR ---
SEEN PT SLEEPING, NO SIGNS OF DISTRESS, MAINTAINED ON NPO, DENIES CHEST PAIN THE WHOLE SHIFT, IVF INFUSING WELL, MONITORED CLOSELY. Addendum: 06/17/17 at 0641 by Kevin Mccall RN CHARTED ON WRONG PT.
[2017-06-17] MEDS: LANSOPRAZOLE 30 MG CAPDR GT SCH (06:17)
--- NOTE | 2017-06-17 06:20 | NUR ---
DUE MEDICATION GIVE THRU G-TUBE, TOLERATING WELL, IVF INFUSING WELL, NO SEIZURE EPISODE THE WHOLE SHIFT, MONITORED CLOSELY.
[2017-06-17 07:06] LABS: BASOPHILS # (AUTO) 0.4 K/uL (0.00-0.22); BASOPHILS % (AUTO) 3.5 % (0.0-2.0); EOSINOPHILS # (AUTO) 0.5 K/uL (0-0.4); EOSINOPHILS % (AUTO) 3.9 % (0.0-4.0); HEMATOCRIT 24.3 % (36-48); HEMOGLOBIN 7.9 g/dL (12.0-16.0); LYMPHOCYTES # (AUTO) 2.6 K/uL (2.5-16.5); LYMPHOCYTES % (AUTO) 21.9 % (20.5-51.1); MEAN CORPUSCULAR HEMOGLOBIN 30 pg (27-31); MEAN CORPUSCULAR HGB CONC 32 g/dL (33-37); MEAN CORPUSCULAR VOLUME 94 fL (80-94); MONOCYTES # (AUTO) 0.7 K/uL (0.8-1.0); MONOCYTES % (AUTO) 5.9 % (1.7-9.3); NEUTROPHILS # (AUTO) 7.6 K/uL (1.8-7.7); NEUTROPHILS % (AUTO) 64.8 % (42.2-75.2); PLATELET COUNT (AUTO) 445 K/uL (140-450); RED BLOOD CELL COUNT(AUTO) 2.59 MIL/uL (4.20-5.40); RED CELL DISTRIBUTION WIDTH 17.6 % (11.6-13.7); WHITE BLOOD COUNT (AUTO) 11.8 K/uL (4.8-10.8)
[2017-06-17] MEDS: ALBUTEROL SULFATE/IPRATROPIU 3 ML SOL IH SCH ×2 (07:07→13:05)
--- NOTE | 2017-06-17 07:18 | NUR ---
PT ASLEEP, NO SIGNS OF DISTRESS, REPORT GIVEN TO MINOR NOBLE FOR CONTINUITY OF CARE.
--- NOTE | 2017-06-17 07:19 | NUR ---
REPORT RECEIVED FROM NIGHT RN, PT ASLEEP IN BED, NO SIGNS OF ACUTE DISTRESS, IV PATENT AND INTACT, RT AT BEDSIDE, SUCTION AVAILABLE AT BEDSIDE, SAFETY PRECAUTIONS TAKEN, SEIZURE PRECAUTIONS TAKEN, CALL LIGHT WITHIN REACH, WILL COTN TO MONITOR.
[2017-06-17 07:55] LABS: ANION GAP 12.7 (8-16); CARBON DIOXIDE 23.5 mmol/L (21-32); CREATININE 0.7 mg/dL (0.6-1.3); POTASSIUM 5.2 mmol/L (3.5-5.1)
[2017-06-17 08:00] VITALS: BP 94/59
[2017-06-17] MEDS: LISINOPRIL 10 MG TAB GT SCH (09:00)
[2017-06-17] MEDS: POTASSIUM CHLORIDE 20% 40 MEQ/15 ML UDC GT SCH (09:00)
[2017-06-17] MEDS: GLYCOPYRROLATE 1 MG TAB GT SCH (09:36)
[2017-06-17] MEDS: LACTOBACILLUS RHAMNOSUS GG 1 EACH CAP PO SCH (09:36)
[2017-06-17] MEDS: THIAMINE 100 MG TAB GT SCH (09:36)
[2017-06-17] MEDS: DOCUSATE 100 MG/10 ML UDC GT SCH (09:37)
[2017-06-17] MEDS: ZINC SULF 220 MG CAP GT SCH (09:37)
[2017-06-17] MEDS: FERROUS SULFATE 300 MG/5 ML UDC GT SCH (09:37)
[2017-06-17] MEDS: SENNA 8.6 MG TAB PO SCH (09:37)
[2017-06-17] MEDS: ASCORBIC ACID 500 MG TAB GT SCH (09:37)
[2017-06-17] MEDS: levETIRAcetam 100 MG/ML ORASYR GT SCH (09:38)
[2017-06-17] MEDS: PHENYTOIN 100 MG/4 ML UDC GT SCH (09:38)
[2017-06-17] MEDS: LACTULOSE 20 GM/30 ML UDC GT SCH (09:38)
--- NOTE | 2017-06-17 09:53 | NUR ---
DUE MEDICATIONS GIVEN VIA GTUBE, NO S/S OF ACUTE DISTRESS, PT ASLEEP IN BED, SAFETY/SEIZURE PRECAUTIONS TAKEN, WILL CONT TO MONITOR.
[2017-06-17] MEDS: FLUCONAZOLE 400 MG/NS PREMIX 200 ML IV SCH (09:55)
--- NOTE | 2017-06-17 10:35 | NUR ---
SPOKE WITH [place] IN [place] [facility] [place] STATED THAT PT'S BED STILL AVAILABLE AND REQUESTED UPDATED INFORMATION INCLUDING NOTE THAT PT IS COLONIZED. INFORMATION FAXED REQUESTED TO [phone].
[2017-06-17 11:53] VITALS: BP 97/59
[2017-06-17 12:00] VITALS: BP 138/73
[2017-06-17] MEDS: SKINTEGRITY HYDROGEL TP SCH (12:28)
--- NOTE | 2017-06-17 12:46 | NUR ---
PT DRESSING DRY AND INTACT, NO SIGNS OF ACUTE DISTRESS, FLACC SCALE 0, SAFETY PRECAUTIONS TAKEN, WILL CONT TO MONITOR.
--- NOTE | 2017-06-17 12:53 | NUR ---
EDITH CACERES MADE AWARE OF TRANSFER. SHE IS IN AGREEMENT. PT CHANGED AT THIS TIME. ORAL CARE PROVIDED. AWAITING TRANSPORTATION.
--- NOTE | 2017-06-17 13:15 | NUR ---
VENT CHECK COMPLETED. PT NOT SOB NOT IN RESPIRATORY DISTRESS. WILL CONTINUE TO MONITOR. PT SUCTIONED BY NURSE.
--- NOTE | 2017-06-17 13:54 | NUR ---
NOTIFIED MD OF PICC LINE AND WEST FOR TRANSPORT, MD STATES PICC LINE AND WEST WILL STAY IN PLACE FOR TRANSPORT TO SNF.
--- NOTE | 2017-06-17 14:33 | NUR ---
PT BEING DISCHARGED TO [facility], [facility] HERE FOR TRANSPORT ALS, GTUBE IN PLACE AND PATENT, PICC LINE IN PLACE AND PATENT, WEST IN PLACE, NO S/S OF ACUTE DISTRESS, PT IN STABLE CONDITION.
== END 2017-06-17 14:35 | disposition home or self-care (01) | DRG 720 ==
LOC: MED 05:00 → MIC 06:56 → MTU 06-15 15:12
PROVIDERS: ADMIT Family Medicine; ATTEND Family Medicine
PROC: 5A1955Z Respiratory Ventilation, Greater than 96 Consecutive Hours (ICD-10-PCS; principal; 2017-06-06)
DX: A41.9 Sepsis, unspecified organism (principal); N17.0 Acute kidney failure with tubular necrosis; J96.21 Acute and chronic respiratory failure with hypoxia; J69.0 Pneumonitis due to inhalation of food and vomit; K22.11 Ulcer of esophagus with bleeding; E43 Unspecified severe protein-calorie malnutrition; L89.159 Pressure ulcer of sacral region, unspecified stage; Z93.0 Tracheostomy status; I42.9 Cardiomyopathy, unspecified; K72.90 Hepatic failure, unspecified without coma; F03.90 Unspecified dementia, unspecified severity, without behavioral disturbance, psychotic disturbance, mood disturbance, and anxiety; R65.20 Severe sepsis without septic shock; E05.90 Thyrotoxicosis, unspecified without thyrotoxic crisis or storm; N39.0 Urinary tract infection, site not specified; E03.9 Hypothyroidism, unspecified; G40.909 Epilepsy, unspecified, not intractable, without status epilepticus; E78.00 Pure hypercholesterolemia, unspecified; J40 Bronchitis, not specified as acute or chronic; K21.9 Gastro-esophageal reflux disease without esophagitis; N20.2 Calculus of kidney with calculus of ureter; K43.9 Ventral hernia without obstruction or gangrene; I35.0 Nonrheumatic aortic (valve) stenosis; K74.60 Unspecified cirrhosis of liver; B37.3 Candidiasis of vulva and vagina; K59.00 Constipation, unspecified; E66.3 Overweight; E83.41 Hypermagnesemia; E86.0 Dehydration; I11.0 Hypertensive heart disease with heart failure; I50.9 Heart failure, unspecified; Z79.899 Other long term (current) drug therapy; E10.51 Type 1 diabetes mellitus with diabetic peripheral angiopathy without gangrene; D68.59 Other primary thrombophilia; D63.8 Anemia in other chronic diseases classified elsewhere; Z86.73 Personal history of transient ischemic attack (TIA), and cerebral infarction without residual deficits; Z93.1 Gastrostomy status; Z98.2 Presence of cerebrospinal fluid drainage device; Z86.718 Personal history of other venous thrombosis and embolism; Z82.3 Family history of stroke; Z82.49 Family history of ischemic heart disease and other diseases of the circulatory system; Z88.0 Allergy status to penicillin; Z88.8 Allergy status to other drugs, medicaments and biological substances; Z68.26 Body mass index [BMI] 26.0-26.9, adult; Z79.82 Long term (current) use of aspirin; Z79.4 Long term (current) use of insulin
CPT/HCPCS: 36415; 36600; 70450; 71010; 74000; 80048; 80053; 80170; 80185; 81001; 82140; 82150; 82607; 82728; 82746; 82803; 82948; 83540; 83605; 83690; 83735; 83880; 84100; 84484; 85025; 85045; 85610; 85730; 87040; 87070; 87077; 87081; 87086; 87186; 87205; 93005; 93970; 94003; 94640; 96365; 96367; 96375; 99285; A6248; C9113; J1165; J1450; J1580; J1815; J1953; J1956; J2185; J2765; J2916; J2997; J3480; J3490; J7030; J7042; J7060; J7620; Q0092

== ENCOUNTER 2017-06-20 21:48 | Inpatient (IN) | payer MEDICAID ==
[~2017-06-20] VITALS: Ht 165.1 cm; Wt 78.9 kg
--- NOTE | 2017-06-20 21:48 | NUR ---
2145- PT [facility] ALS. TAKEN TO BED 3. RT AT BEDSIDE.
[2017-06-20 21:50] VITALS: BP 120/84
--- NOTE | 2017-06-20 21:50 | NUR ---
BIBA C/O COFFEE GROUND EMESIS, WITH TRACHE TO VENT, G TUBE, WEST CATHETER, APHASIC, VENT SETTING OF AC 14, PEEP 5, TIDAL VOLUME 500, fi02 50 %.
--- NOTE | 2017-06-20 22:10 | NUR ---
Dr. Sewell evaluating patient at bedside.
[2017-06-20] MEDS ORDERED: PANTOPRAZOLE 80 MG in NACL 0.9% 100 ML IV SCH (22:25)
[2017-06-20] MEDS ORDERED: PANTOPRAZOLE 40 MG INJ VIAL IVP ONE ×2 (22:52→22:55)
--- NOTE | 2017-06-20 23:08 | NUR ---
PT TAKEN TO CT VIA GURTAVO WITH RT
[2017-06-20 23:20] LABS: HEMATOCRIT 28.3 % (36-48); HEMOGLOBIN 9.3 g/dL (12.0-16.0); MEAN CORPUSCULAR HEMOGLOBIN 31 pg (27-31); MEAN CORPUSCULAR HGB CONC 33 g/dL (33-37); MEAN CORPUSCULAR VOLUME 95 fL (80-94); PLATELET COUNT (AUTO) 583 K/uL (140-450); RED BLOOD CELL COUNT(AUTO) 2.98 MIL/uL (4.20-5.40); RED CELL DISTRIBUTION WIDTH 19.4 % (11.6-13.7)
--- NOTE | 2017-06-20 23:21 | NUR ---
PT RETURN FROM CT
[2017-06-20 23:32] LABS: ANION GAP 13.1 (8-16); CARBON DIOXIDE 28.5 mmol/L (21-32); POTASSIUM 4.6 mmol/L (3.5-5.1)
[2017-06-20 23:33] LABS: PROTHROMBIN TIME 10.7 secs (10.8-13.4)
--- NOTE | 2017-06-20 23:34 | NUR ---
[address] [facility] [facility] AND [facility] BACK ON SAME SETTING. SPUTUM COLLECTED AND SENT TO LAB
[2017-06-20 23:38] LABS: TOTAL BILIRUBIN 0.1 mg/dL (0.0-1.0)
[2017-06-20 23:55] LABS: WHITE BLOOD COUNT (AUTO) 19.2 K/uL (4.8-10.8)
[2017-06-20 23:58] LABS: LYMPHOCYTES % (MANUAL) 7 % (20-46); MONOCYTES % (MANUAL) 2 % (5-12)
--- NOTE | 2017-06-21 02:00 | NUR ---
ALL RESULTS BACK AND NOTED BY ERMD AND FOR ADMISSION
[2017-06-21] MEDS: NACL 0.9% 1,000 ML IV SCH ×3 (02:13→18:25)
[2017-06-21] MEDS ORDERED: ONDANSETRON 4 MG/2 ML VIAL IVP PRN (02:15)
[2017-06-21] MEDS ORDERED: HYDROcodone/APAP 7.5/325 MG 1 TAB PO PRN (02:15)
[2017-06-21] MEDS ORDERED: ACETAMINOPHEN 325 MG TAB PO PRN (02:15)
--- NOTE | 2017-06-21 02:20 | NUR ---
Patient will be admitted to care of DR. KISER. Admited to TELEMETRY]. Will go to room 123 B. Belongings list completed.
--- NOTE | 2017-06-21 02:21 | NUR ---
REPORT GIVEN TO LIAM GAXIOLA.
[2017-06-21] MEDS ORDERED: ONDANSETRON 4 MG/2 ML VIAL IM/IVP PRN (02:40)
[2017-06-21] MEDS ORDERED: DOCUSATE 100 MG/10 ML UDC PO PRN (02:40)
[2017-06-21] MEDS ORDERED: BISACODYL 10 MG SUPP RC PRN (02:40)
--- NOTE | 2017-06-21 02:45 | NUR ---
PT ARRIVED TO UNIT VIA GURNEY ACCOMPANIED BY JUNIOR ORACLE DBA AND MOBILE HEALTH VEHICLE OPERATOR. PT IS NONVERBAL, WITH A TRACH TO VENT SATURATING AT 100%. PT HAD A RIGHT TEMPORAL CRANIOTOMY A LONG TIME AGO. PT HAS A PICC LINE TO THE RIGHT ARM INFUSING PROTONIX AT 10ML/HR, A GTUBE, A NASOGASTRIC TUBE IN PLACE, AND A WEST CATHETER IN PLACE. PT HAS A SACRAL PRESSURE ULCER. PT IS ON BEDREST. SAFETY PRECAUTIONS IN PLACE. UPDATED BOARD. VITAL SIGNS WITHIN NORMAL LIMITS. VITAL SIGNS ARE WITHIN NORMAL LIMITS. PT IN STABLE CONDITION, NO SIGNS OF DISTRESS NOTED, RT AT BEDSIDE. NGT CONNECTED TO SUCTION. BED IN LOW POSITION, CALL LIGHT WITHIN REACH. WILL CONTINUE TO MONITOR.
[2017-06-21 02:49] LABS: CHOL/HDL RATIO 2.6 (1-4.5); FREE T4 (FREE THYROXINE) 0.83 ng/dL (0.76-1.46); MAGNESIUM 3.1 mg/dL (1.8-2.4); THYROID STIMULATING HORMONE 0.18 uIU/mL (0.34-3.74)
[2017-06-21 03:30] VITALS: BP 92/65
--- NOTE | 2017-06-21 03:39 | NUR ---
0315 TRANSFERED PT TO ROOM 123. PLACED BACK ON VENT WITH SAME SETTINGS. TRACH CARE DONE. PT STABLE AT THIS TIME. NO SOB NOTED
[2017-06-21] MEDS ORDERED: PANTOPRAZOLE 80 MG in NACL 0.9% 100 ML IV SCH (04:25)
[2017-06-21] MEDS ORDERED: ALBUTEROL SULFATE/IPRATROPIU 3 ML SOL IH PRN (04:25)
[2017-06-21] MEDS ORDERED: DEXTROSE 50% 50 ML SYR IVP PRN (04:45)
[2017-06-21] MEDS ORDERED: INSULIN LISPRO SLIDING SCALE 100 UNITS/ML VIAL SUBQ PRN (04:45)
[2017-06-21] MEDS: PHENYTOIN 100 MG/2 ML VIAL IVP SCH ×2 (05:53→13:00)
[2017-06-21] MEDS: CLINDAMYCIN 600 MG in DEXTROSE 5% 50 ML IV SCH ×3 (05:53→21:33)
[2017-06-21] MEDS: METOCLOPRAMIDE 10 MG/10 ML SYRP UDC GT SCH ×3 (05:53→21:32)
[2017-06-21] MEDS ORDERED: CLINDAMYCIN 600 MG/4 ML VIAL ONE (05:57)
[2017-06-21] MEDS ORDERED: PHENYTOIN 100 MG/4 ML UDC GT SCH (06:00)
[2017-06-21] MEDS ORDERED: LEVOFLOXACIN 750 MG/D5W PREMIX 150 ML IV SCH (06:00)
[2017-06-21] MEDS ORDERED: SODIUM PHOSPHATE 118 ML ENEM RC SCH (06:00)
[2017-06-21] MEDS ORDERED: levETIRAcetam 1,000 MG in NACL 0.9% 100 ML IV SCH (06:00)
[2017-06-21] MEDS: BLOOD GLUCOSE MONITORING 1 DEV DEV FS SCH ×4 (06:50→21:34)
--- NOTE | 2017-06-21 07:10 | NUR ---
ENDORSED PT TO DAY SHIFT RN FOR CONTINUITY OF CARE. PT IN STABLE CONDITION.
[2017-06-21 07:13] LABS: BASOPHILS # (AUTO) 0.3 K/uL (0.00-0.22); BASOPHILS % (AUTO) 1.9 % (0.0-2.0); EOSINOPHILS # (AUTO) 0.2 K/uL (0-0.4); EOSINOPHILS % (AUTO) 1.2 % (0.0-4.0); HEMOGLOBIN 8.5 g/dL (12.0-16.0); LYMPHOCYTES # (AUTO) 1.9 K/uL (2.5-16.5); LYMPHOCYTES % (AUTO) 11.2 % (20.5-51.1); MEAN CORPUSCULAR HEMOGLOBIN 31 pg (27-31); MEAN CORPUSCULAR HGB CONC 33 g/dL (33-37); MEAN CORPUSCULAR VOLUME 94 fL (80-94); MONOCYTES # (AUTO) 0.9 K/uL (0.8-1.0); MONOCYTES % (AUTO) 5.7 % (1.7-9.3); NEUTROPHILS # (AUTO) 13.2 K/uL (1.8-7.7); PLATELET COUNT (AUTO) 523 K/uL (140-450); RED BLOOD CELL COUNT(AUTO) 2.77 MIL/uL (4.20-5.40); RED CELL DISTRIBUTION WIDTH 18.9 % (11.6-13.7)
--- NOTE | 2017-06-21 07:15 | NUR ---
RECEIVED PATIENT REPORT AT BEDSIDE. PATIENT AWAKE BUT APHASIC. PATIENT TRACH TO VENT ON 28% FIO2. PATIENT ON CONTINUOS O2 MONITORING. O2 SATURATION 100. NO S/S OF DISTRESS NOTED. DOUBLE LUMEN PICC LINE NOTED TO RIGHT UPPER ARM. PICC LINE FLUSHES WITH NO RESISTANCE AND WITH BLOOD RETURN. G-TUBE IN PLACE. HERNIA NOTED TO THE ABD. WEST CATHETER IN PLACE DRAINING LIGHT DEVONTE URINE. NGT NOTED TO THE RIGHT NARES ON CONTINUOS SUCTION. DARK DRAINAGE NOTED. PATIENT ON TELE MONITORING. BED LOWERED WITH CALL LIGHT WITHIN REACH. WILL CONTINUE TO MONITOR
[2017-06-21] MEDS: ALBUTEROL SULFATE/IPRATROPIU 3 ML SOL IH SCH ×3 (07:42→19:57)
--- NOTE | 2017-06-21 07:55 | NUR ---
RECEIVED TRACH PT WITH PORTEX 7 TRACH ON VENT. SETTINGS AC 14 VT 500, PEEP 5 AND FIO2 28%. PT SUCTIONED OBTAINED SMALL AMOUNT OF THICK PALE YELLOW SECRETIONS, AIRWAY IS PATENT AND TRACH IS SECURE. PT IS NOT ALERT BUT IS NOT IN RESPIRATORY DISTRESS. VENT IS PLUGGED INTO RED OUTLET WITH ALARMS ON AND FUNCTIONING. WILL CONTINUE TO MONITOR.
[2017-06-21 08:00] VITALS: BP 68/46
--- NOTE | 2017-06-21 08:00 | NUR ---
NOTIFIED DR FAJARDO ABOUT PATIENT'S BP. ORDERS RECEIVED
[2017-06-21 08:01] LABS: WHITE BLOOD COUNT (AUTO) 16.5 K/uL (4.8-10.8)
[2017-06-21 08:09] LABS: ANION GAP 17.4 (8-16); CARBON DIOXIDE 25.2 mmol/L (21-32); CREATININE 1.1 mg/dL (0.6-1.3); POTASSIUM 4.6 mmol/L (3.5-5.1)
[2017-06-21] MEDS ORDERED: NACL 0.9% 1,000 ML IV ONE (08:15)
[2017-06-21] MEDS: DOCUSATE SODIUM 100 MG GELCAP PO SCH ×2 (09:00→21:33)
[2017-06-21] MEDS ORDERED: ASCORBIC ACID 500 MG/5 ML ORASYR GT SCH (09:00)
[2017-06-21] MEDS ORDERED: ASPIRIN 81 MG TAB.CHEW PO SCH (09:00)
[2017-06-21] MEDS: LISINOPRIL 10 MG TAB GT SCH (09:00)
--- NOTE | 2017-06-21 09:00 | NUR ---
SCHEDULED MEDICATIONS ADMINISTERED VIA NGT. SUCTION PUT ON HOLD
[2017-06-21] MEDS: GLYCOPYRROLATE 1 MG TAB GT SCH ×2 (09:13→21:33)
[2017-06-21] MEDS: LACTULOSE 20 GM/30 ML UDC GT SCH ×3 (09:13→17:41)
[2017-06-21] MEDS: ZINC SULF 220 MG CAP GT SCH (09:13)
[2017-06-21] MEDS: FERROUS SULFATE 325 MG TABEC PO SCH (09:13)
[2017-06-21] MEDS: LANSOPRAZOLE 30 MG CAPDR GT SCH (09:14)
[2017-06-21] MEDS: THIAMINE 100 MG TAB GT SCH (09:14)
--- NOTE | 2017-06-21 09:25 | NUR ---
1L NS BOLUS DONE. BP 75/50 HR 96 O2 SAT 99%
--- NOTE | 2017-06-21 09:58 | NUR ---
PATIENT HAS BEEN SCREENED AND CATEGORIZED HIGH NUTRITION RISK. PATIENT WILL BE SEEN WITHIN 1-2 DAYS OF ADMISSION. 06/21/17 - 06/22/17 VALERIA BEEBE MBA, RD
--- NOTE | 2017-06-21 10:00 | NUR ---
NGT SUCTION RESUMED
[2017-06-21] MEDS ORDERED: FERRIC GLUCONATE 125 MG in NACL 0.9% 100 ML IV SCH (10:09)
[2017-06-21] MEDS ORDERED: ASCORBIC ACID 500 MG TAB GT SCH ×2 (10:13→10:14)
[2017-06-21] MEDS ORDERED: MULTIVITAMIN 5 ML ORASYR GT SCH (10:17)
[2017-06-21] MEDS ORDERED: NOREPINEPHRINE 4 MG in DEXTROSE 5% 250 ML IV PRN (10:20)
[2017-06-21 12:00] VITALS: BP 98/55
[2017-06-21 14:04] VITALS: BP 99/60
--- NOTE | 2017-06-21 15:30 | NUR ---
SACRAL WOUND DRESSING CHANGED. WOUND CLEANSED WITH NS, PAT DRIED. Z GUARD APPLIED THEN COVERED WITH FOAM DRESSING. PATIENT TOLERATED WELL
--- NOTE | 2017-06-21 15:42 | NUR ---
PT SUCTIONED OBTAINED SMALL AMOUNT OF THICK PALE YELLOW SECRETIONS. AIRWAY IS PATENT AND TRACH IS SECURE. PT IS NOT SOB AND NOT IN RESPIRATORY DISTRESS. WILL CONTINUE TO MONITOR.
[2017-06-21 16:00] VITALS: BP 92/58
--- NOTE | 2017-06-21 16:00 | NUR ---
ORAL CARE GIVEN. PATIENT TOLERATED WELL
[2017-06-21] MEDS: NYSTATIN/TRIAMCINOLONE CRM 15 GM TUBE TP SCH ×2 (16:40→21:33)
[2017-06-21] MEDS: FOAM DRESSING TP SCH (16:41)
[2017-06-21] MEDS: Z-GUARD PASTE TP SCH (16:41)
[2017-06-21] MEDS: HYDRAGUARD CREAM TP SCH (16:41)
--- NOTE | 2017-06-21 17:30 | NUR ---
SPOKE TO DR PITTMAN OVER THE PHONE AND GAVE PATIENT REPORT. TO SEE THE PATIENT TOMORROW
--- NOTE | 2017-06-21 17:38 | NUR ---
VENT CHECK COMPLETED, PT SUCTIONED OBTAINED MODERATE AMOUNT OF THICK PALE YELLOW SECRETIONS, AIRWAY IS PATENT AND TRACH IS SECURE. PT IS NOT AWAKE AT THIS TIME BUT DOES RESPOND TO SUCTIONING. PT IS NOT SOB AND NOT IN RESPIRATORY DISTRESS. VENT ALARMS REMAIN ON AND FUNCTIONING.
--- NOTE | 2017-06-21 19:30 | NUR ---
PATIENT REPORT GIVEN AT BEDSIDE. PATIENT ENDORSED IN STABLE CONDITION
--- NOTE | 2017-06-21 19:40 | NUR ---
RECEIVED REPORT FROM AM NURSE. PT APHASIC, BEDBOUND, UNABLE TO VERBALIZE NEEDS. NO S/S OF ACUTE DISTRESS. PT HAS PT'S SPO2 IS 96% WITH TRACH TO VENT FIO2 28%, PEEP 5, VT 500ML, RR 14; RESPIRATIONS ARE EVEN AND UNLABORED. PT HAS R CRANIOTOMY. NGT TO LOW WALL SUCTION, SUCTIONING DARK BROWN/GREEN FLUID. SACRAL DRESSING CLEAN DRY AND INTACT. WEST CATH IN PLACE, DRAINING LIGHT DEVONTE URINE. SCDs IN PLACE. PICC LINE, 2X LUMEN ASYMPTOMATIC, PATENT AND INTACT. IVF INFUSING WELL. DISCUSSED AND REVIEWED PLAN OF CARE WITH PT, PT APHASIC, WILL CONTINUE WITH CONSTANT REINFORCEMENT. ALL NEEDS MET. SAFETY MEASURES ENSURED. CALL LIGHT WITHIN REACH. WILL CONTINUE TO MONITOR.
--- NOTE | 2017-06-21 19:45 | NUR ---
PT TURNED AND REPOSITIONED, OFFLOADED PRESSURE AREAS, PT TOLERATED WELL.
[2017-06-21 20:00] VITALS: BP 91/59
[2017-06-21] MEDS: ATORVASTATIN 20 MG TAB PO SCH (21:32)
--- NOTE | 2017-06-21 21:39 | NUR ---
NG TUBE SUCTION PAUSED, WILL CONTINUE IN 1 HOUR. NG TUBE PLACEMENT VERIFIED, RESIDUAL 0ML, ADMINISTERED DUE MEDS VIA NG-TUBE ORDERED. ADMINISTERED DUE MED CLEOCIN IVPB ORDERED. ADMINISTERED MYCOLOG TO FOLDS ORDERED. PT TOLERATED MEDS WELL. PT APHASIC, WILL CONTINUE TO REINFORCE TEACHING. ALL NEEDS MET. SAFETY MEASURES ENSURED. CALL LIGHT WITHIN REACH. WILL CONTINUE TO MONITOR.
--- NOTE | 2017-06-21 21:45 | NUR ---
PT TURNED AND REPOSITIONED, OFFLOADED PRESSURE AREAS, PT TOLERATED WELL.
--- NOTE | 2017-06-21 21:59 | NUR ---
PT HAD LARGE LOOSE TO LIQUID STOOL, PT CLEANED, SACRAL DRESSING CLEAN DRY AND INTACT, REINFORCED. ADMINISTERED HYDRAGUARD AND ZGUARD TO SACRAL AND MELY AREA. ADMINISTERED MYCOLOG TO FOLDS ORDERED. PT TURNED AND REPOSITIONED, OFFLOADED PRESSURE AREAS, PT TOLERATED WELL. G TUBE PLACEMENT VERIFIED, RESIDUAL 5ML, ADMINISTERED DUE MEDS VIA G-TUBE ORDERED. BLOOD SUGAR 87, NO INSULIN COVERAGE NEEDED. HELD DUE MED PHENYTOIN DUE TO LAST PHENYTOIN LAB RESULT 29.8, DR FAJARDO AWARE. PT APHASIC, WILL CONTINUE TO REINFORCE TEACHING. ALL NEEDS MET. IVPB INFUSING WELL. SAFETY MEASURES ENSURED. CALL LIGHT WITHIN REACH. WILL CONTINUE TO MONITOR. Addendum: 06/23/17 at 0107 by Lizandro Shelby RN PLEASE DISREGARD, WRONG DATE
[2017-06-22] VITALS: BP 91/55
--- NOTE | 2017-06-22 00:01 | NUR ---
PT TURNED AND REPOSITIONED, OFFLOADED PRESSURE AREAS, PT TOLERATED WELL. CONDITION STABLE, SPO2 96% WITH TRACH TO VENT, RR 14 EVEN AND UNLABORED, ALL NEEDS MET. IVF INFUSING WELL. NGT TO LOW WALL SUCTION. WEST CATH DRAINING WELL. SAFETY MEASURES ENSURED. CALL LIGHT WITHIN REACH. WILL CONTINUE TO MONITOR.
[2017-06-22] MEDS: HYDRAGUARD CREAM TP SCH ×4 (01:35→21:47)
[2017-06-22] MEDS: Z-GUARD PASTE TP SCH ×4 (01:35→21:51)
[2017-06-22 04:00] VITALS: BP 100/58
[2017-06-22] MEDS: METOCLOPRAMIDE 10 MG/10 ML SYRP UDC GT SCH ×3 (04:10→21:40)
[2017-06-22] MEDS: NACL 0.9% 1,000 ML IV SCH (04:10)
[2017-06-22] MEDS: CLINDAMYCIN 600 MG in DEXTROSE 5% 50 ML IV SCH ×3 (04:11→21:59)
--- NOTE | 2017-06-22 04:15 | NUR ---
NG TUBE SUCTION PAUSED, WILL CONTINUE IN 1 HOUR. NG TUBE PLACEMENT VERIFIED, RESIDUAL 0ML, ADMINISTERED DUE MED REGLAN VIA NG-TUBE ORDERED. ADMINISTERED DUE MED CLEOCIN IVPB ORDERED. PT APHASIC, WILL CONTINUE TO REINFORCE TEACHING. PT'S SACRAL DRESSING IS SOILED WITH MINIMAL DRAINAGE. WOUND CARE PERFORMED, WOUND CLEANSED WITH NS AND GAUZE, PAT DRY, HYDRAGUARD AND Z-GUARD APPLIED, COVERED WITH OPTIFOAM ORDERED. TURNED AND REPOSITIONED, OFFLOADED PRESSURE AREAS, PT TOLERATED WELL. ORAL CARE PERFORMED. CONDITION STABLE. SPO2 96% WITH VENT, RR 14 EVEN AND UNLABORED. ALL NEEDS MET. IVPB INFUSING WELL.SAFETY MEASURES ENSURED. CALL LIGHT WITHIN REACH. WILL CONTINUE TO MONITOR.
[2017-06-22] MEDS: BLOOD GLUCOSE MONITORING 1 DEV DEV FS SCH ×4 (06:40→21:39)
--- NOTE | 2017-06-22 06:40 | NUR ---
BLOOD SUGAR 90, NO INSULIN COVERAGE NEEDED. CALLED DR FAJARDO, DISCUSSED PT'S BLOOD SUGAR 90 AND THAT PT IS DYSPHAGIC, UNABLE TO EAT, ON NGT SUCTION, NO TUBE FEEDING AT THIS TIME, AND HAS MAINTENANCE FLUID OF NS AT 126ML/HR. TO CHANGE FLUIDS WITH D5. ORDERS PENDING, WILL CARRY OUT.
[2017-06-22] MEDS: DEXT 5% / NACL 0.9% 500 ML IV SCH ×2 (06:58→16:40)
[2017-06-22] MEDS: ALBUTEROL SULFATE/IPRATROPIU 3 ML SOL IH SCH ×3 (07:19→19:00)
--- NOTE | 2017-06-22 07:20 | NUR ---
ENDORSED PLAN OF CARE TO AM NURSE. CONDITION STABLE.
--- NOTE | 2017-06-22 07:25 | NUR ---
RECEIVED REPORT FROM PM SHIFT RN AT BEDSIDE. PT IS NON VERBAL, EYES OPEN SPONTANEOUSLY, TRACKING MOVEMENT. PT TRACH TO VENT WITH FiO2: 28%, TIDAL VOLUME: 500 RR: 14, PEEP:5. FLACC 0. NO RESPIRATORY DISTRESS NOTED. NGT TO RIGHT NARE WITH DARK COFFEE GROUND DRAINAGE NOTED. ABD DISTENDED WITH G TUBE IN PLACE. RIGHT UPPER ARM PICC DOUBLE LUMEN INTACT AND PATENT W/ IVF INFUSING RIGHT UPPER ARM PICC LINE FLUSHED WITHOUT ANY DIFFICULTIES WITH GOOD BLOOD RETURN. WEST CATH IN PLACE WITH DRAINAGE TO GRAVITY. BED IN LOW POSITION. HOB ELEVATED. SAFETY MEASURES MAINTAINED. WILL CONTINUE TO MONITOR.
--- NOTE | 2017-06-22 07:38 | NUR ---
DR. LLOYD EVALUATING PT AT BEDSIDE. HOLD NGT SUCTION AND PLACED ABDOMINAL BINDER IN PLACE ORDERED. WILL INSTILL SOAP SUBS ENEMA LATER.
[2017-06-22 08:00] VITALS: BP_SYST 114; BP_SYST 133; BP_DIAS 68; BP_DIAS 76
[2017-06-22 08:26] LABS: FOLIC ACID 14.3 ng/mL (>3.0)
[2017-06-22] MEDS ORDERED: MAGNESIUM CITRATE 300 ML BTL GT SCH (09:00)
[2017-06-22] MEDS: ASCORBIC ACID 500 MG TAB GT SCH (09:32)
[2017-06-22] MEDS: LANSOPRAZOLE 30 MG CAPDR GT SCH (09:32)
[2017-06-22] MEDS: GLYCOPYRROLATE 1 MG TAB GT SCH ×2 (09:33→21:40)
[2017-06-22] MEDS: ZINC SULF 220 MG CAP GT SCH (09:33)
[2017-06-22] MEDS: THIAMINE 100 MG TAB GT SCH (09:33)
[2017-06-22] MEDS: LISINOPRIL 10 MG TAB GT SCH (09:33)
[2017-06-22] MEDS: MULTIVITAMIN 5 ML ORASYR GT SCH (09:34)
[2017-06-22] MEDS: PHENYTOIN 100 MG/2 ML VIAL IVP SCH ×3 (09:34→21:00)
[2017-06-22] MEDS: FERROUS SULFATE 325 MG TABEC PO SCH (09:34)
[2017-06-22] MEDS: DOCUSATE SODIUM 100 MG GELCAP PO SCH ×2 (09:35→21:44)
[2017-06-22] MEDS: NYSTATIN/TRIAMCINOLONE CRM 15 GM TUBE TP SCH ×2 (09:36→21:46)
[2017-06-22] MEDS: LEVOFLOXACIN 750 MG/D5W PREMIX 150 ML IV SCH (09:36)
--- NOTE | 2017-06-22 09:38 | NUR ---
SCHEDULED MEDS GIVEN VIA G TUBE BY GRAVITY AND TOLERATED WELL BY PT. HOB ELEVATED TO 30 DEGREES. FLACC 0. NO RESPIRATORY NOTED. WILL CONTINUE TO MONITOR.
[2017-06-22 10:43] LABS: MAGNESIUM 2.4 mg/dL (1.8-2.4); PHOSPHORUS 3.5 mg/dL (2.5-4.9)
[2017-06-22 11:04] LABS: ANION GAP 12.1 (8-16); CARBON DIOXIDE 21.9 mmol/L (21-32); CREATININE 0.8 mg/dL (0.6-1.3)
--- NOTE | 2017-06-22 11:20 | NUR ---
06/22/17 RD INITIAL ASSESSMENT COMPLETED PLEASE REFER TO NUTRITION ASSESSMENT UNDER CARE ACTIVITY FOR ESTIMATED NUTRITIONAL NEEDS. RD RECOMMENDATIONS: 1- WHEN MEDICALLY CLEARED FOR NUTRITION SUPPORT, GOAL IS TO MEET >75% OF CALCULATED ESTIMATED DAILY NUTRITIONAL NEEDS DOCUMENTED AT 4056-4257 KCALS & 92-122G PROTEIN. 2- AWAITING PT PROGRESS / MD ORDERS FOR SPECIFICS. 3- FOLLOW UP 2-3 DAYS; HIGH RISK. VALERIA BEEBE MBA, RD
[2017-06-22 11:49] LABS: BASOPHILS # (AUTO) 0.1 K/uL (0.00-0.22); BASOPHILS % (AUTO) 1.4 % (0.0-2.0); EOSINOPHILS # (AUTO) 0.2 K/uL (0-0.4); EOSINOPHILS % (AUTO) 2.1 % (0.0-4.0); HEMATOCRIT 21.2 % (36-48); LYMPHOCYTES # (AUTO) 1.6 K/uL (2.5-16.5); LYMPHOCYTES % (AUTO) 19.7 % (20.5-51.1); MEAN CORPUSCULAR HEMOGLOBIN 31 pg (27-31); MEAN CORPUSCULAR HGB CONC 33 g/dL (33-37); MEAN CORPUSCULAR VOLUME 95 fL (80-94); MONOCYTES # (AUTO) 0.7 K/uL (0.8-1.0); MONOCYTES % (AUTO) 8.5 % (1.7-9.3); NEUTROPHILS # (AUTO) 5.6 K/uL (1.8-7.7); NEUTROPHILS % (AUTO) 68.3 % (42.2-75.2); PLATELET COUNT (AUTO) 378 K/uL (140-450); RED BLOOD CELL COUNT(AUTO) 2.24 MIL/uL (4.20-5.40); RED CELL DISTRIBUTION WIDTH 18.6 % (11.6-13.7); WHITE BLOOD COUNT (AUTO) 8.2 K/uL (4.8-10.8)
[2017-06-22 12:00] VITALS: BP 114/68
--- NOTE | 2017-06-22 12:00 | NUR ---
ROUNDED ON PT. FLACC 0. V/S STABLE. NO RESPIRATORY DISTRESS NOTED. WILL CONTINUE TO MONITOR.
[2017-06-22] MEDS: FOAM DRESSING TP SCH (12:50)
--- NOTE | 2017-06-22 13:00 | NUR ---
INFORMED TO Tayla GALVEZ TO RE-ORDER AM MORNING LAB ORDERS DUE TO MORNING BLOOD SAMPLES DRAWN FROM PICC LINE, NOT FROM PERIPHERAL VEIN.
[2017-06-22 13:43] LABS: CARBON DIOXIDE 24.4 mmol/L (21-32); CREATININE 0.7 mg/dL (0.6-1.3); POTASSIUM 3.4 mmol/L (3.5-5.1)
[2017-06-22 13:55] LABS: BASOPHILS # (AUTO) 0.2 K/uL (0.00-0.22); BASOPHILS % (AUTO) 1.9 % (0.0-2.0); EOSINOPHILS # (AUTO) 0.2 K/uL (0-0.4); EOSINOPHILS % (AUTO) 1.9 % (0.0-4.0); HEMATOCRIT 21.5 % (36-48); LYMPHOCYTES # (AUTO) 1.6 K/uL (2.5-16.5); LYMPHOCYTES % (AUTO) 18.5 % (20.5-51.1); MEAN CORPUSCULAR HEMOGLOBIN 30 pg (27-31); MEAN CORPUSCULAR HGB CONC 32 g/dL (33-37); MEAN CORPUSCULAR VOLUME 94 fL (80-94); MONOCYTES # (AUTO) 0.8 K/uL (0.8-1.0); MONOCYTES % (AUTO) 9.7 % (1.7-9.3); NEUTROPHILS # (AUTO) 5.8 K/uL (1.8-7.7); PLATELET COUNT (AUTO) 375 K/uL (140-450); RED BLOOD CELL COUNT(AUTO) 2.28 MIL/uL (4.20-5.40); RED CELL DISTRIBUTION WIDTH 18.7 % (11.6-13.7); WHITE BLOOD COUNT (AUTO) 8.6 K/uL (4.8-10.8)
[2017-06-22 14:35] LABS: HEMOGLOBIN 6.8 g/dL (12.0-16.0)
--- NOTE | 2017-06-22 14:35 | NUR ---
RECEIVED CALL FROM LAB FOR HgB-6.8 HcT-21.5. MADE Tayla BROCK AWARE OF RESULT. NO NEW ORDERS AT THIS TIME.
--- NOTE | 2017-06-22 15:40 | NUR ---
VENT CHECK, NO SXN REQUIRED AT THIS TIME PT RESTING
[2017-06-22 16:00] VITALS: BP 105/60
--- NOTE | 2017-06-22 16:30 | NUR ---
INSTILLED SOAP SUBS ENEMA ORDERED. COPIOUS AMT OF LIQUID BROWN STOOL NOTED. MADE PT DRY, CLEAN, AND COMFORTABLE. WILL CONTINUE TO MONITOR.
--- NOTE | 2017-06-22 17:15 | NUR ---
VENT CHECK, NO SXN PT GETTING BATH AND AIRWAY IS PATENT
--- NOTE | 2017-06-22 19:05 | NUR ---
REPORT GIVEN TO PM SHIFT RN AT BEDSIDE FOR CONTINUITY OF CARE. PT IN STABLE CONDITION.
--- NOTE | 2017-06-22 19:15 | NUR ---
RECEIVED REPORT FROM AM NURSE. PT APHASIC, BEDBOUND, UNABLE TO VERBALIZE NEEDS. NO S/S OF ACUTE DISTRESS. PT HAS PT'S SPO2 IS 99% WITH TRACH TO VENT FIO2 28%, PEEP 5, VT 500ML, RR 14; RESPIRATIONS ARE EVEN AND UNLABORED. PT HAS R CRANIOTOMY. NGT TO RIGHT NARES, SUCTIONING HELD PER DR LLOYD. SACRAL DRESSING CLEAN DRY AND INTACT. ABDOMINAL HERNIA NOTED, GTUBE NOTED, ABDOMINAL BINDER IN PLACE. WEST CATH IN PLACE, DRAINING CLEAR YELLOW URINE. SCDs IN PLACE. PICC LINE, 2X LUMEN ASYMPTOMATIC, PATENT AND INTACT. IVF INFUSING WELL. DISCUSSED AND REVIEWED PLAN OF CARE WITH PT, PT APHASIC, WILL CONTINUE WITH CONSTANT REINFORCEMENT. ALL NEEDS MET. SAFETY MEASURES ENSURED. CALL LIGHT WITHIN REACH. WILL CONTINUE TO MONITOR.
[2017-06-22 20:00] VITALS: BP 124/67
[2017-06-22] MEDS: levETIRAcetam 1,000 MG in NACL 0.9% 100 ML IV SCH (21:13)
[2017-06-22] MEDS: ATORVASTATIN 20 MG TAB PO SCH (21:45)
--- NOTE | 2017-06-22 21:59 | NUR ---
PT HAD LARGE LOOSE TO LIQUID STOOL, PT CLEANED, SACRAL DRESSING CLEAN DRY AND INTACT, REINFORCED. ADMINISTERED HYDRAGUARD AND ZGUARD TO SACRAL AND MELY AREA. ADMINISTERED MYCOLOG TO FOLDS ORDERED. PT TURNED AND REPOSITIONED, OFFLOADED PRESSURE AREAS, PT TOLERATED WELL. G TUBE PLACEMENT VERIFIED, RESIDUAL 5ML, ADMINISTERED DUE MEDS VIA G-TUBE ORDERED. BLOOD SUGAR 87, NO INSULIN COVERAGE NEEDED. HELD DUE MED PHENYTOIN DUE TO LAST PHENYTOIN LAB RESULT 29.8, DR FAJARDO AWARE. PT APHASIC, WILL CONTINUE TO REINFORCE TEACHING. ALL NEEDS MET. IVPB INFUSING WELL. SAFETY MEASURES ENSURED. CALL LIGHT WITHIN REACH. WILL CONTINUE TO MONITOR.
[2017-06-22] MEDS ORDERED: DEXTROSE 50% 50 ML SYR IVP PRN (23:00)
--- NOTE | 2017-06-22 23:50 | NUR ---
PT SLEEPING COMFORTABLY, NO S/S OF ACUTE DISTRESS, SPO2 100% WITH TRACH TO VENT, RR 14 EVEN AND UNLABORED. ALL NEEDS MET. IVF INFUSING WELL. SAFETY MEASURES ENSURED. CALL LIGHT WITHIN REACH. WILL CONTINUE TO MONITOR.
[2017-06-23] VITALS (7 sets, daily range): BP systolic 95–125; BP diastolic 55–65
--- NOTE | 2017-06-23 02:15 | NUR ---
INSTILLED PT'S SOAP SUBS ENEMA ORDERED. PT WAS ABLE TO HAVE LARGE AMOUNT OF LIQUID BROWN STOOL. PT CLEANED. SACRAL DRESSING SOILED, WOUND CLEANSED WITH NS AND GAUZE, PAT DRY, COVERED WITH OPTIFOAM, APPLIED Z-GUARD AND HYDRAGUARD AROUND SACRAL AND MELY AREA. PT TURNED AND REPOSITIONED, OFFLOADED PRESSURE AREAS, PT TOLERATED WELL. CONDITION STABLE, SPO2 98% WITH TRACH TO VENT, RR 14 EVEN AND UNLABORED. ALL NEEDS MET. IVF INFUSING WELL. SAFETY MEASURES ENSURED. CALL LIGHT WITHIN REACH. WILL CONTINUE TO MONITOR.
[2017-06-23] MEDS: DEXT 5% / NACL 0.9% 500 ML IV SCH ×2 (02:40→14:01)
[2017-06-23] MEDS: METOCLOPRAMIDE 10 MG/10 ML SYRP UDC GT SCH ×3 (04:30→20:50)
[2017-06-23] MEDS: CLINDAMYCIN 600 MG in DEXTROSE 5% 50 ML IV SCH ×3 (04:30→21:02)
[2017-06-23] MEDS: PHENYTOIN 100 MG/2 ML VIAL IVP SCH ×3 (04:30→20:55)
--- NOTE | 2017-06-23 04:30 | NUR ---
HELD DILATIN IVP PER DR FAJARDO. ADMINISTERED CLEOCIN IVPB ORDERED. G-TUBE PLACEMENT VERIFIED, 0ML RESIDUAL, ADMINISTERED REGLAN GT ORDERED. PT TOLERATED WELL. ABD BINDER IN PLACE. ALL NEEDS MET. IVPB INFUSING WELL. WEST CATH DRAINING WELL. SAFETY MEASURES ENSURED. CALL LIGHT WITHIN REACH. WILL CONTINUE TO MONITOR.
[2017-06-23] MEDS: BLOOD GLUCOSE MONITORING 1 DEV DEV FS SCH ×4 (06:17→20:48)
--- NOTE | 2017-06-23 06:23 | NUR ---
BLOOD SUGAR 88, NO INSULIN COVERAGE NEEDED. CONDITION STABLE, NO S/S OF ACUTE DISTRESS, SPO2 100% WITH TRACH TO VENT, RR 14 EVEN AND UNLABORED, HR 72. ALL NEEDS MET. IVF INFUSING WELL. SAFETY MEASURES ENSURED. WILL CONTINUE TO MONITOR.
[2017-06-23] MEDS: ALBUTEROL SULFATE/IPRATROPIU 3 ML SOL IH SCH ×3 (07:00→20:06)
--- NOTE | 2017-06-23 07:10 | NUR ---
RECEIVED PATIENT REPORT AT BEDSIDE. PATIENT TRACH TO VENT WITH 28% FIO2. PATIENT ON CONTINUOUS PULSE O2 MONITORING. O2 SATURATION 100% AT THIS TIME. NO S/S OF DISTRESS NOTED. NGT NOTED TO THE RIGHT NARES. SUCTION ON HOLD. G-TUBE IN PLACE. PICC LINE NOTED TO THE RIGHT UPPER ARM WITH IVF INFUSING WELL. PATIENT ON TELE MONITORING. WEST CATHETER IN PLACE, DRAINING YELLOW URINE. BED LOWERED WITH CALL LIGHT WITHIN REACH. WILL CONTINUE TO MONITOR
--- NOTE | 2017-06-23 07:10 | NUR ---
PATIENT ON AC 14 500 5 28%. PATIENT ASLEEP SUCTIONED NO SECRETIONS. BD
--- NOTE | 2017-06-23 07:20 | NUR ---
ENDORSED PLAN OF CARE WITH AM NURSE. CONDITION STABLE.
[2017-06-23 08:12] LABS: MEAN CORPUSCULAR HEMOGLOBIN 30 pg (27-31); MEAN CORPUSCULAR HGB CONC 33 g/dL (33-37); MEAN CORPUSCULAR VOLUME 93 fL (80-94); PLATELET COUNT (AUTO) 322 K/uL (140-450); RED BLOOD CELL COUNT(AUTO) 2.04 MIL/uL (4.20-5.40); WHITE BLOOD COUNT (AUTO) 6.1 K/uL (4.8-10.8)
[2017-06-23 08:22] LABS: ANION GAP 8.5 (8-16); CARBON DIOXIDE 27.1 mmol/L (21-32); CREATININE 0.6 mg/dL (0.6-1.3); HEMOGLOBIN 6.2 g/dL (12.0-16.0); POTASSIUM 3.6 mmol/L (3.5-5.1)
[2017-06-23 08:27] LABS: PHOSPHORUS 2.9 mg/dL (2.5-4.9)
[2017-06-23] MEDS: DOCUSATE SODIUM 100 MG GELCAP PO SCH ×2 (09:00→20:55)
[2017-06-23] MEDS: LISINOPRIL 10 MG TAB GT SCH (09:00)
[2017-06-23 09:03] LABS: BASOPHILS % (MANUAL) 0 % (0-2); EOSINOPHILS % (MANUAL) 3 % (0-4); LYMPHOCYTES % (MANUAL) 30 % (20-46); MONOCYTES % (MANUAL) 6 % (5-12)
[2017-06-23] MEDS: MULTIVITAMIN 5 ML ORASYR GT SCH (09:30)
[2017-06-23] MEDS: ZINC SULF 220 MG CAP GT SCH (09:30)
[2017-06-23] MEDS: FERROUS SULFATE 325 MG TABEC PO SCH (09:30)
[2017-06-23] MEDS: levETIRAcetam 1,000 MG in NACL 0.9% 100 ML IV SCH ×2 (09:30→21:45)
[2017-06-23] MEDS: THIAMINE 100 MG TAB GT SCH (09:31)
[2017-06-23] MEDS: LANSOPRAZOLE 30 MG CAPDR GT SCH (09:31)
[2017-06-23] MEDS: GLYCOPYRROLATE 1 MG TAB GT SCH ×2 (09:31→20:52)
[2017-06-23] MEDS: ASCORBIC ACID 500 MG TAB GT SCH (09:31)
--- NOTE | 2017-06-23 09:31 | NUR ---
ADMINISTERED SCHEDULED MEDS VIA [place]. NO RESIDUALS NOTED
[2017-06-23] MEDS: NYSTATIN/TRIAMCINOLONE CRM 15 GM TUBE TP SCH ×2 (09:53→20:53)
[2017-06-23] MEDS: LEVOFLOXACIN 750 MG/D5W PREMIX 150 ML IV SCH (10:19)
--- NOTE | 2017-06-23 12:06 | NUR ---
NOTIFIED DR FAJARDO ABOUT PATIENT'S PHENYTOIN LEVEL OF 29.8 TAKEN ON 06/21. PER DR FAJARDO OK TO GIVE PHENYTOIN DOSE TODAY
--- NOTE | 2017-06-23 12:48 | NUR ---
06/23/17 RD INITIAL ASSESSMENT COMPLETED PLEASE REFER TO NUTRITION ASSESSMENT UNDER CARE ACTIVITY FOR ESTIMATED NUTRITIONAL NEEDS. RD RECOMMENDATIONS: 1. RECOMMEND PULMOCARE AT 50 ML/HR X 24 HOURS WITH 215 ML FREE WATER FLUSH Q4H. THIS PROVIDES 2490 ML TOTAL VOLUME, 1800 KCAL, 75.1 GM PROTEIN, 942 ML TOTAL. 2. CONSULT RDN PRN. 3. RD WILL F/U 2-3 DAYS; HIGH RISK. JEFFERY GUADARRAMA MS, RDN
[2017-06-23 12:50] LABS: PROTHROMBIN TIME 10.4 secs (10.8-13.4)
[2017-06-23] MEDS: FOAM DRESSING TP SCH (13:00)
[2017-06-23] MEDS: HYDRAGUARD CREAM TP SCH (13:00)
[2017-06-23] MEDS: Z-GUARD PASTE TP SCH (13:00)
--- NOTE | 2017-06-23 13:15 | NUR ---
OBTAINED TELEPHONE CONSENT FOR BLOOD TRANSFUSION. CONSENT FILED IN THE CHART
--- NOTE | 2017-06-23 13:25 | NUR ---
VENT CHECK PATIENT ASLEEP NO SUCTION NEEDED
--- NOTE | 2017-06-23 13:47 | NUR ---
NGT DISCONTINUED. PATIENT TOLERATED WELL
--- NOTE | 2017-06-23 14:00 | NUR ---
ORAL CARE GIVEN. PATIENT TOLERATED WELL
[2017-06-23] MEDS: ACETAMINOPHEN 325 MG TAB PO SCH ×2 (14:02→18:08)
--- NOTE | 2017-06-23 14:30 | NUR ---
BLOOD TRANSFUSION INITIATED
--- NOTE | 2017-06-23 15:15 | NUR ---
VENT CHECK COMPLETED TRACH CARE NO SUCTION
[2017-06-23] MEDS ORDERED: MAG SULF 2000 MG/WATER PREMIX 50 ML IV ONE (15:50)
--- NOTE | 2017-06-23 16:00 | NUR ---
BLOOD TRANSFUSION IN PROGRESS. PATIENT ASLEEP. NO S/S OF DISTRESS NOTED
--- NOTE | 2017-06-23 16:46 | NUR ---
TUBE FEEDING INITIATED
--- NOTE | 2017-06-23 17:10 | NUR ---
VENT CHECK COMPLETED
--- NOTE | 2017-06-23 17:35 | NUR ---
BLOOD TRANSFUSION DONE. NO S/S OF DISTRESS NOTED
--- NOTE | 2017-06-23 19:23 | NUR ---
PATIENT REPORT GIVEN AT BEDSIDE. PATIENT ENDORSED IN STABLE CONDITION
--- NOTE | 2017-06-23 19:25 | NUR ---
RECEIVED REPORT FROM DAY SHIFT RN. PT IS APHASIC, ON A TRACH TO VENT WITH CONTINUOUS SPO2 MONITOR. PT HAS A RIGHT PICC, INFUSING D5NS@20ML/HR. PT HAS A SACRAL PRESSURE ULCER, DRESSING CLEAN, DRY AND INTACT. PT IS ON BEDBOUND. SAFETY PRECAUTIONS IN PLACE. UPDATED BOARD. VITAL SIGNS ARE WITHIN NORMAL LIMITS. PT IN STABLE CONDITION, NO SIGNS OF DISTRESS NOTED. BED IN LOW POSITION, CALL LIGHT WITHIN REACH. WILL CONTINUE TO MONITOR.
--- NOTE | 2017-06-23 20:05 | NUR ---
RCV'D PT ON MECHANICAL VENTILATION. VENT SETTINGS ARE AC 14,500,28%,+5. PT IS TRACHED WITH PORTEX 7. TRACH IS IN PLACE AND SECURED. STOMA IS CLEAN. VENT IS CONNECTED TO RED OUTLET. ALARMS ARE AUDIBLE. HHN TX GIVEN BY RT ZAYDA. AMBU BAG AT BEDSIDE. NO SOB OR DISTRESS NOTED. WILL CONTINUE TO MONITOR.
[2017-06-23 20:10] LABS: BASOPHILS # (AUTO) 0.2 K/uL (0.00-0.22); EOSINOPHILS # (AUTO) 0.2 K/uL (0-0.4); HEMATOCRIT 23.8 % (36-48); HEMOGLOBIN 7.8 g/dL (12.0-16.0); LYMPHOCYTES # (AUTO) 1.2 K/uL (2.5-16.5); MEAN CORPUSCULAR HEMOGLOBIN 30 pg (27-31); MEAN CORPUSCULAR HGB CONC 33 g/dL (33-37); MEAN CORPUSCULAR VOLUME 92 fL (80-94); MONOCYTES # (AUTO) 0.4 K/uL (0.8-1.0); PLATELET COUNT (AUTO) 308 K/uL (140-450); RED CELL DISTRIBUTION WIDTH 16.8 % (11.6-13.7)
[2017-06-23] MEDS: ATORVASTATIN 20 MG TAB PO SCH (20:53)
--- NOTE | 2017-06-23 21:00 | NUR ---
ADMINISTERED SCHEDULED MEDICATIONS EXCEPT FOR COLACE, COLACE NOT AVAILABLE. PT IN STABLE CONDITION, NO SIGNS OF DISTRESS NOTED. BED IN LOW POSITION, CALL LIGHT WITHIN REACH. WILL CONTINUE TO MONITOR.
[2017-06-23 22:49] LABS: APPEARANCE,URINE CLEAR (CLEAR); BILIRUBIN,URINE NEGATIVE (NEGATIVE); BLOOD, URINE NEGATIVE (NEGATIVE); LEUKOCYTE ESTERASE ,URINE NEGATIVE (NEGATIVE); NITRITE, URINE NEGATIVE (NEGATIVE); PH,URINE 6.5 (5.0-9.0); UGLUCOSE NEGATIVE (NEGATIVE)
[2017-06-23 22:52] LABS: COLOR,URINE STRAW (YELLOW)
[2017-06-23 23:32] LABS: RBC,URINE 0-5 (RARE) /HPF (0-5); WBC,URINE 0-5 (RARE) /HPF (0-5)
[2017-06-23 23:33] LABS: YEAST,URINE Moderate /HPF (None Seen)
[2017-06-24 00:05] VITALS: BP 120/62
[2017-06-24] MEDS: HYDRAGUARD CREAM TP SCH ×2 (00:48→13:00)
[2017-06-24] MEDS: Z-GUARD PASTE TP SCH ×2 (00:48→13:00)
[2017-06-24] MEDS: ACETAMINOPHEN 325 MG TAB PO SCH (00:48)
--- NOTE | 2017-06-24 01:21 | NUR ---
TUBE FEEDING RUNNING AT 215ML/HR WITHOUT RESIDUAL. PT IN STABLE CONDITION, NO SIGNS OF DISTRESS NOTED. BED IN LOW POSITION, CALL LIGHT WITHIN REACH. WILL CONTINUE TO MONITOR.
[2017-06-24 04:00] VITALS: BP 134/70
[2017-06-24] MEDS: CLINDAMYCIN 600 MG in DEXTROSE 5% 50 ML IV SCH ×3 (05:29→21:27)
[2017-06-24] MEDS: METOCLOPRAMIDE 10 MG/10 ML SYRP UDC GT SCH ×3 (05:29→21:16)
[2017-06-24] MEDS: PHENYTOIN 100 MG/2 ML VIAL IVP SCH ×3 (05:33→21:28)
--- NOTE | 2017-06-24 05:40 | NUR ---
SUCTIONED PT BECAUSE IT SEEMED IF SHE WAS IN DISTRESS. SUCTIONED TRACH AND MOUTH, PT SATURATING IN MID 90S TO 100. PT IN STABLE CONDITION. BED IN LOW POSITION, CALL LIGHT WITHIN REACH. WILL CONTINUE TO MONITOR.
--- NOTE | 2017-06-24 06:20 | NUR ---
CALLED TO PT'S ROOM BY MINOR HILL DUE TO ALARMS GOING OFF ON VENT, I ENTERED THE ROOM THE VENT WAS ALARMING AND PT WAS APNEPIC AND PTS TRACH WAS OUT PT'S O2 SAT AT THIS TIME WAS 50%THEN CAME BACK UP TO 97% PUSHED TRACH BACK IN AND CALLED FOR NURSE AND DRLouie TO COME IN [place] SAID SHE TRIED SUCTIONING PT . DR. Quang KISER CAME INTO ROOM TO CHECK PT AND PLACEMENT OF TRACH A STAT CHEST XRAY WAS ORDERED. AT THIS TIME A VENT CHECK WAS DONE ON [place] VENT SETTINGS AC14 VT500 PEEP 5 FIO2 28% ALARMS ON AND FUNCTIONING PROPERLY, AMBU BAG AT SIDE OF VENT AND VENT IS PLUGGED INTO RED OUTLET, SXN PT MODRATE AMT OF CREAM COLOR SECRETIONS, B\S ARE RHONCHI AND PT IS TRACH WITH PORTEX 7. AT THIS TIME PT IS RESTING WITH NO SIGNS OF DISTRESS NOTED
--- NOTE | 2017-06-24 06:30 | NUR ---
PT MOUTH FULL OF SALIVA, SUCTIONED MOUTH, AND TRACH. PT WAS SATURATING BETWEEN 92 AND 94, SEEKED HELP FROM MORE EXPERIENCED RN, SHE SUCTIONED PT TOO AND PT SATURATING BETWEEN 92 AND 95, BUT PT LOOKED IN DISTRESS. CALLED RT, RT CAME AND STATED TRACH WAS OUT. PAGED DR SANTIAGO AND TEAM OF RESIDENTS CAME TO ROOM. DR DUARTE ORDERED A STAT XRAY TO SEE IF TRACH IS IN RIGHT POSITION.
[2017-06-24] MEDS: ALBUTEROL SULFATE/IPRATROPIU 3 ML SOL IH SCH ×3 (06:49→19:52)
[2017-06-24] MEDS: BLOOD GLUCOSE MONITORING 1 DEV DEV FS SCH ×4 (06:57→21:08)
[2017-06-24 07:21] LABS: ANION GAP 8.7 (8-16); CARBON DIOXIDE 25.8 mmol/L (21-32); CREATININE 0.7 mg/dL (0.6-1.3); POTASSIUM 3.5 mmol/L (3.5-5.1)
[2017-06-24 07:27] LABS: HEMATOCRIT 26.9 % (36-48); HEMOGLOBIN 8.8 g/dL (12.0-16.0); MEAN CORPUSCULAR HEMOGLOBIN 30 pg (27-31); MEAN CORPUSCULAR HGB CONC 33 g/dL (33-37); MEAN CORPUSCULAR VOLUME 93 fL (80-94); PLATELET COUNT (AUTO) 298 K/uL (140-450); RED BLOOD CELL COUNT(AUTO) 2.89 MIL/uL (4.20-5.40); RED CELL DISTRIBUTION WIDTH 17.1 % (11.6-13.7); WHITE BLOOD COUNT (AUTO) 8.5 K/uL (4.8-10.8)
[2017-06-24 07:28] LABS: MAGNESIUM 2.9 mg/dL (1.8-2.4); PHOSPHORUS 2.8 mg/dL (2.5-4.9)
--- NOTE | 2017-06-24 07:46 | NUR ---
ENDORSED PT TO DAY SHIFT RN, PT IN STABLE CONDITION.
[2017-06-24 08:00] VITALS: BP 134/69
--- NOTE | 2017-06-24 08:16 | NUR ---
0748 RECEIVED REPORT FROM MINOR HILL AT BEDSIDE. INITIAL ASSESSMENT COMPLETED. PT NONVERBAL. PT HAS A RIGHT ARM PICC LINE. PT HAS A SACRAL WOUND COVERED WITH DRESSING CLEAN DRY AND INTACT. PT HAS A G TUBE FEEDING. PT HAS A WEST CATHETER WITH 300 ML URINE YELLOW OUTPUT. PT ON A VENT TO TRACH. PT HAS SCDS ON. WILL CONTINUE TO MONITOR PT.
--- NOTE | 2017-06-24 08:49 | NUR ---
VENT CHECK, NO SXN REQUIRED AT THIS TIME, B\S ARE RHONCHI AND PT IS SLEEPING WITH NO SIGNS OF DISTRESS NOTED AT THIS TIME, AIRWAY IS PATENT
--- NOTE | 2017-06-24 09:02 | NUR ---
0855 RT AT BEDSIDE. TELE BOX REMOVED ORDERED, LANDSCAPING SUPERVISOR AWARE. PT IS NOW [facility].
[2017-06-24 09:42] LABS: LYMPHOCYTES % (MANUAL) 37 % (20-46); MONOCYTES % (MANUAL) 11 % (5-12)
--- NOTE | 2017-06-24 10:14 | NUR ---
PT CLEANED, REPOSITIONED, DRESSING ON SACRAL WOUND CHANGED. WILL CONTINUE TO MONITOR PT.
[2017-06-24] MEDS: levETIRAcetam 1,000 MG in NACL 0.9% 100 ML IV SCH ×2 (10:33→21:27)
[2017-06-24] MEDS: DOCUSATE SODIUM 100 MG GELCAP PO SCH ×2 (10:34→21:15)
[2017-06-24] MEDS: LISINOPRIL 10 MG TAB GT SCH (10:34)
[2017-06-24] MEDS: GLYCOPYRROLATE 1 MG TAB GT SCH ×2 (10:34→21:16)
[2017-06-24] MEDS: ZINC SULF 220 MG CAP GT SCH (10:34)
[2017-06-24] MEDS: ASCORBIC ACID 500 MG TAB GT SCH (10:35)
[2017-06-24] MEDS: THIAMINE 100 MG TAB GT SCH (10:35)
[2017-06-24] MEDS: LANSOPRAZOLE 30 MG CAPDR GT SCH (10:35)
[2017-06-24] MEDS: FERROUS SULFATE 325 MG TABEC PO SCH (10:35)
[2017-06-24] MEDS: MULTIVITAMIN 5 ML ORASYR GT SCH (10:36)
--- NOTE | 2017-06-24 10:40 | NUR ---
VENT CHECK, SXN PT MODERATE AMT OF THICK YELLOW SECRETIONS, B\S ARE RHONCHI AND AIRWAY IS PATENT PT IS SLEEPING
[2017-06-24] MEDS: LEVOFLOXACIN 750 MG/D5W PREMIX 150 ML IV SCH (10:45)
[2017-06-24] MEDS: NYSTATIN/TRIAMCINOLONE CRM 15 GM TUBE TP SCH ×2 (10:46→21:28)
--- NOTE | 2017-06-24 11:03 | NUR ---
PT TOLERATED MED WELL. GIVEN G TUBE PATENT. RESIDUAL 25 ML. WILL CONTINUE TO MONITOR PT.
[2017-06-24] MEDS: DEXT 5% / NACL 0.9% 500 ML IV SCH (11:53)
[2017-06-24] MEDS: FOAM DRESSING TP SCH (13:00)
--- NOTE | 2017-06-24 14:22 | NUR ---
PT TOLERATED 1300 MEDS WELL. WILL CONTINUE TO MONITOR PT.
--- NOTE | 2017-06-24 14:23 | NUR ---
VENT CHECK NO SXN NEEDED PT IS SLEEPING WITH NO SIGNS OF DISTRESS NOTED TRACH CARE DONE: CHANGED TRACH GAUZE
--- NOTE | 2017-06-24 15:17 | NUR ---
WEST OUTPUT 1200 ML. ENDORSED PT IN STABLE CONDITION TO MINOR ALMAZAN.
--- NOTE | 2017-06-24 15:18 | NUR ---
RECEIVED REPORT FROM OBDULIA RN AT BEDSIDE FOR CONTINUITY OF CARE. PT IS IN STABLE CONDITION. PT IS APHASIC, BEDBOUND. PT HAS A SACRAL ULCER, DRESSING IN PLACE. DRY AND INTACT. WEST CATH IN PLACE. EMPTIED 1100ML CLEAR YELLOW URINE. TRACH TO VENT: FIO2 28%, PEEP 5, TV 500, RR 14. R UPPER ARM PICC LINE DOUBLE LUMEN, D5 NS 20ML/HR. GTUBE FEEDING ON HOLD FOR NOW. NEED TO VERIFY RATEDS. WILL CONTINUE TO MONITOR PT.
[2017-06-24 16:00] VITALS: BP 103/58
--- NOTE | 2017-06-24 16:50 | NUR ---
VENT CHECK, SXN PT SMALL AMT OF SECRETIONS PT IS SLEEPING
--- NOTE | 2017-06-24 17:56 | NUR ---
PT SLEEPING SOUNDLY. NO SIGNS OF DISTRESS. WILL CONTINUE TO MONITOR PT.
[2017-06-24 18:50] VITALS: BP 120/80
--- NOTE | 2017-06-24 19:15 | NUR ---
ENDORSED PT TO THE CREDIT COUNSELOR NURSE. PT IN STABLE CONDITION.
[2017-06-24 20:50] VITALS: BP 120/88
[2017-06-24] MEDS: ATORVASTATIN 20 MG TAB PO SCH (21:15)
--- NOTE | 2017-06-24 21:51 | NUR ---
SPOKE TO RT ABOUT PERFORMING TRACH CARE BECAUSE DRESSING AROUND TRACH IS SATURATED. PT IN STABLE CONDITION, PERFORMED ORAL AND TRACH SUCTIONING, PT TOLERATED WELL AND SATURATING IN HIGH 90S-100%.
--- NOTE | 2017-06-24 22:00 | NUR ---
CHECKED RESIDUAL, THERE WAS NONE. STARTED TUBE FEEDING AT 215ML/HR. WILL STOP WHEN 215ML HAVE BEEN DELIVERED.
--- NOTE | 2017-06-24 23:10 | NUR ---
GTUBE FEEDING STOPPED, RESIDUAL CHECKED, THERE WAS NO RESIDUAL.
[2017-06-25] VITALS (7 sets, daily range): BP systolic 86–121; BP diastolic 55–84
[2017-06-25] MEDS: HYDRAGUARD CREAM TP SCH ×2 (01:49→13:15)
[2017-06-25] MEDS: Z-GUARD PASTE TP SCH ×2 (01:49→13:15)
--- NOTE | 2017-06-25 04:00 | NUR ---
CHECKED RESIDUAL AND THERE WAS NO RESIDUAL. STARTED GTUBE FEEDING AT 215ML/HR. WILL STOP FEEDING ONCE 215ML HAVE BEEN DELIVERED.
[2017-06-25] MEDS: METOCLOPRAMIDE 10 MG/10 ML SYRP UDC GT SCH ×3 (05:13→20:33)
[2017-06-25] MEDS: CLINDAMYCIN 600 MG in DEXTROSE 5% 50 ML IV SCH ×3 (05:13→20:38)
--- NOTE | 2017-06-25 05:15 | NUR ---
GTUBE FEEDING STOPPED ONCE 215ML ADMINISTERED. NO RESIDUAL AFTER FEEDING.
[2017-06-25] MEDS: PHENYTOIN 100 MG/2 ML VIAL IVP SCH ×3 (05:40→20:39)
--- NOTE | 2017-06-25 06:18 | NUR ---
TURNED PT Q2H, KEPT PT CLEAN, DRY, AND COMFORTABLE. PT IN STABLE CONDITION, NO SIGNS OF DISTRESS NOTED. BED IN LOW POSITION. WILL CONTINUE TO MONITOR.
[2017-06-25] MEDS: BLOOD GLUCOSE MONITORING 1 DEV DEV FS SCH ×4 (06:35→20:14)
[2017-06-25] MEDS: ALBUTEROL SULFATE/IPRATROPIU 3 ML SOL IH SCH ×3 (06:47→19:20)
--- NOTE | 2017-06-25 07:26 | NUR ---
ENDORSED PT IN STABLE CONDITION TO DAY SHIFT RN AT BEDSIDE FOR CONTINUITY OF CARE.
--- NOTE | 2017-06-25 07:27 | NUR ---
PT SLEEPING. UPDATED THE BOARD. FEEDING OFF. VENT TO TRACH. O2 SAT 99%, FIO2 28%, PEEP 5, TV 540; RR 14. PICC LINE IN MARIEL, IV INFUSING D5NS 20ML/HR. GTUBE INTACT. WEST CATH IN PLACE. 200ML OF YELLOW CLEAR URINE IN BAG. V/S WITHIN NORMAL RANGE. AFEBRILE. ORAL CARE DONE. SUCTIONED. WILL CONTINUE TO MONITOR PT.
[2017-06-25] MEDS: FERROUS SULFATE 325 MG TABEC PO SCH (08:53)
[2017-06-25] MEDS: LANSOPRAZOLE 30 MG CAPDR GT SCH (08:53)
[2017-06-25] MEDS: ASCORBIC ACID 500 MG TAB GT SCH (08:53)
[2017-06-25] MEDS: GLYCOPYRROLATE 1 MG TAB GT SCH ×2 (08:53→20:28)
[2017-06-25] MEDS: THIAMINE 100 MG TAB GT SCH (08:53)
[2017-06-25] MEDS: ZINC SULF 220 MG CAP GT SCH (08:53)
[2017-06-25] MEDS: MULTIVITAMIN 5 ML ORASYR GT SCH (08:54)
[2017-06-25] MEDS: LEVOFLOXACIN 750 MG/D5W PREMIX 150 ML IV SCH (08:57)
[2017-06-25] MEDS: LISINOPRIL 10 MG TAB GT SCH (09:01)
[2017-06-25] MEDS: NYSTATIN/TRIAMCINOLONE CRM 15 GM TUBE TP SCH ×2 (09:05→20:43)
[2017-06-25] MEDS: DOCUSATE 100 MG/10 ML UDC GT SCH ×2 (09:05→20:32)
[2017-06-25] MEDS: levETIRAcetam 1,000 MG in NACL 0.9% 100 ML IV SCH ×2 (10:00→20:38)
--- NOTE | 2017-06-25 10:29 | NUR ---
LATE ENTRY. ADMINISTERED SCHEDULED MEDS VIA G-TUBE. CHECKED FOR PLACEMENT, RESIDUAL (0), PATENCY. PT TOLERATED WELL. CHANGED DRESSING FOR GTUBE AND TRACH. CHANGED FEEDING AND TUBING. PERFORMED WOUND CARE WHILED HOSPITAL PERSONNEL DIRECTOR'S WERE CLEANING PT. OLD DRESSING SOILED AND FELL OFF. CLEANED AREA W/ NS, PATTED DRY, ADMINISTERED HYDROGUARD AND ZGUARD AROUND PERINEAL AREAS. NEW FOAM DRESSING APPLIED. PT TOLERATED WELL. WILL CONTINUE TO MONITOR PT.
--- NOTE | 2017-06-25 13:00 | NUR ---
PT RESTING COMFORTABLY. NO SIGNS OF DISTRESS. WILL CONTINUE TO MONITOR PT.
[2017-06-25] MEDS: FOAM DRESSING TP SCH (13:15)
[2017-06-25] MEDS ORDERED: DEXT 5% / NACL 0.45% 1,000 ML IV SCH (13:25)
[2017-06-25] MEDS ORDERED: POTASSIUM CHL 20 MEQ/D5-1/2NS 1,000 ML IV SCH (14:45)
[2017-06-25] MEDS ORDERED: POTASSIUM CHL 10 MEQ/D5-1/2NS 1,000 ML IV SCH (15:30)
[2017-06-25] MEDS ORDERED: POTASSIUM CHLORIDE 40 MEQ, LIDOCAINE 1% 25 MG in NACL 0.9% 250 ML IV SCH (15:30)
--- NOTE | 2017-06-25 15:44 | NUR ---
ADMINISTERED KRIDER. PT IS TOLERATING WELL. BS CHECK 93. NO COVERAGE NEEDED. WILL CONTINUE TO MONITOR PT.
[2017-06-25] MEDS: DEXT 5% / NACL 0.45% 1,000 ML IV SCH (15:50)
--- NOTE | 2017-06-25 17:16 | NUR ---
K-RIDER STILL INFUSING. FEEDING PUMP BEEPING. HER FEEDING IS DONE. TURNED OFF UNTIL 10PM. WILL ENDORSE FEEDING TO CARNALLITE PLANT OPERATOR NURSE. WILL CONTINUE TO MONITOR PT.
--- NOTE | 2017-06-25 19:15 | NUR ---
ENDORSED PT TO THE OPERATIONS LOGISTICS ANALYST NURSE AT BEDSIDE FOR CONTINUITY OF CARE. PT IN STABLE CONDITION.
--- NOTE | 2017-06-25 19:21 | NUR ---
RECEIVED REPORT FROM DAY SHIFT RN. PT IS APHASIC, ON A TRACH TO VENT WITH CONTINUOUS SPO2 MONITOR. PT HAS A RIGHT PICC, INFUSING D5NS@20ML/HR. GTUBE FEEDINGS Q6H. PT HAS A SACRAL PRESSURE ULCER, DRESSING CLEAN, DRY AND INTACT. PT IS ON BEDBOUND. SAFETY PRECAUTIONS IN PLACE. UPDATED BOARD. VITAL SIGNS ARE WITHIN NORMAL LIMITS. PT IN STABLE CONDITION, NO SIGNS OF DISTRESS NOTED. BED IN LOW POSITION, CALL LIGHT WITHIN REACH. WILL CONTINUE TO MONITOR.
[2017-06-25] MEDS: ATORVASTATIN 20 MG TAB PO SCH (20:29)
[2017-06-25] MEDS ORDERED: NYSTATIN/TRIAMCINOLONE CRM 15 GM TUBE TP SCH (21:00)
[2017-06-25] MEDS ORDERED: CLINDAMYCIN 600 MG in DEXTROSE 5% 50 ML IV SCH (21:00)
--- NOTE | 2017-06-25 22:00 | NUR ---
CHECKED RESIDUAL, THERE WAS NONE. STARTED TUBE FEEDING AT 215ML/HR. WILL STOP WHEN 215ML HAVE BEEN DELIVERED.
--- NOTE | 2017-06-25 23:10 | NUR ---
GTUBE FEEDING STOPPED ONCE 215ML ADMINISTERED. NO RESIDUAL AFTER FEEDING.
[2017-06-26] VITALS: BP 93/55
[2017-06-26] MEDS: HYDRAGUARD CREAM TP SCH ×2 (00:52→12:37)
[2017-06-26] MEDS: Z-GUARD PASTE TP SCH ×2 (00:56→12:37)
[2017-06-26] MEDS: DEXT 5% / NACL 0.45% 1,000 ML IV SCH ×3 (01:50→21:50)
--- NOTE | 2017-06-26 04:04 | NUR ---
CHECKED RESIDUAL, THERE WAS NONE. STARTED TUBE FEEDING AT 215ML/HR. WILL STOP WHEN 215ML HAVE BEEN DELIVERED.
[2017-06-26] MEDS: PHENYTOIN 100 MG/2 ML VIAL IVP SCH ×3 (04:15→20:19)
[2017-06-26] MEDS: METOCLOPRAMIDE 10 MG/10 ML SYRP UDC GT SCH ×3 (04:16→20:19)
[2017-06-26] MEDS: CLINDAMYCIN 600 MG in DEXTROSE 5% 50 ML IV SCH ×3 (04:16→20:16)
--- NOTE | 2017-06-26 04:24 | NUR ---
ADMINISTERED SCHEDULED IVP, IVPB, AND GT MEDICATIONS, PT TOLERATED WELL. NO RESIDUAL, FLUSHED WITH 40MLS.
--- NOTE | 2017-06-26 05:20 | NUR ---
GTUBE FEEDING STOPPED ONCE 215ML ADMINISTERED, PT TOLERATED FEEDING WELL.
--- NOTE | 2017-06-26 06:03 | NUR ---
NO RESIDUAL FROM GTUBE AT THIS TIME. TURNED PT Q2H, KEPT PT CLEAN, DRY, AND COMFORTABLE. PT IN STABLE CONDITION, NO SIGNS OF DISTRESS NOTED. BED IN LOW POSITION. WILL CONTINUE TO MONITOR.
[2017-06-26] MEDS: BLOOD GLUCOSE MONITORING 1 DEV DEV FS SCH ×4 (06:31→20:03)
[2017-06-26] MEDS: ALBUTEROL SULFATE/IPRATROPIU 3 ML SOL IH SCH ×3 (07:13→19:12)
--- NOTE | 2017-06-26 07:24 | NUR ---
RECEIVED TRACH PT WITH PORTEX 7 TRACH ON VENT. SETTINGS AC 14 VT 500, PEEP 5 AND FIO2 28%. PT SUCTIONED OBTAINED MODERATE AMOUNT OF THICK PALE YELLOW SECRETIONS, AIRWAY IS PATENT AND TRACH IS SECURE. PT IS NOT ALERT BUT IS NOT IN RESPIRATORY DISTRESS. VENT IS PLUGGED INTO RED OUTLET WITH ALARMS ON AND FUNCTIONING. WILL CONTINUE TO MONITOR.
--- NOTE | 2017-06-26 07:27 | NUR ---
ENDORSED PT IN STABLE CONDITION TO DAY SHIFT RN AT BEDSIDE FOR CONTINUITY OF CARE.
--- NOTE | 2017-06-26 07:30 | NUR ---
RECEIVED REPORT FROM NIGHT NURSE AT PT BEDSIDE. PATIENT IS APHASIC. TRACH TO VENT. RESPONDS TO PAINFUL STIMULI. VENT AC 14, 28% FIO2, TV 500, PEEP 5. BREATH SOUNDS HEARD BILATERALLY. NO S/S OF ACUTE DISTRESS NOTED. G-TUBE CLAMPED TO LUQ, RECEIVING BOLUS FEEDINGS. PICC LINE DOUBLE LUMEN TO MARIEL, PATENT AND INTACT. WEST IN PLACE TO GRAVITY IN MODERATE CLEAR YELLOW AMOUNT. SCDS IN PLACE. ABDOMINAL BINDER IN PLACE ORDERED. BED IN LOWEST POSITION. POSITIONED FOR COMFORT. OFFLOADED PRESSURE AREAS. BEDSIDE MONITOR IN PLACE.
[2017-06-26 08:00] VITALS: BP 97/52
[2017-06-26] MEDS: DOCUSATE 100 MG/10 ML UDC GT SCH ×2 (09:00→20:19)
[2017-06-26] MEDS: LISINOPRIL 10 MG TAB GT SCH (09:00)
[2017-06-26] MEDS: LANSOPRAZOLE 30 MG CAPDR GT SCH (10:05)
[2017-06-26] MEDS: GLYCOPYRROLATE 1 MG TAB GT SCH ×2 (10:05→20:19)
[2017-06-26] MEDS: ASCORBIC ACID 500 MG TAB GT SCH (10:06)
[2017-06-26] MEDS: MULTIVITAMIN 5 ML ORASYR GT SCH (10:06)
[2017-06-26] MEDS: ZINC SULF 220 MG CAP GT SCH (10:06)
[2017-06-26] MEDS: THIAMINE 100 MG TAB GT SCH (10:06)
[2017-06-26] MEDS: LEVOFLOXACIN 750 MG/D5W PREMIX 150 ML IV SCH (10:07)
[2017-06-26] MEDS: FERROUS SULFATE 325 MG TABEC PO SCH (10:07)
[2017-06-26] MEDS: levETIRAcetam 1,000 MG in NACL 0.9% 100 ML IV SCH ×2 (10:07→21:23)
[2017-06-26] MEDS: NYSTATIN/TRIAMCINOLONE CRM 15 GM TUBE TP SCH ×2 (10:07→20:48)
--- NOTE | 2017-06-26 10:20 | NUR ---
PATIENT POSITIONED FOR COMFORT, OFFLOADED PRESSURE AREAS. NO S/S OF ACUTE DISTRESS NOTED.
--- NOTE | 2017-06-26 12:03 | NUR ---
Spoke to Martín at [facility] [place] and patient on 7 days bed hold.
--- NOTE | 2017-06-26 12:12 | NUR ---
PT SUCTIONED OBTAINED SMALL AMOUNT OF THICK WHITE SECRETIONS, AIRWAY IS PATENT AND TRACH IS SECURE. AREA AROUND STOMA CLEANED OF DRAINAGE SLIGHT REDNESS NOTED. WILL CONTINUE TO MONITOR.
[2017-06-26] MEDS: FOAM DRESSING TP SCH (12:37)
--- NOTE | 2017-06-26 13:59 | NUR ---
PATIENT ASSISTED IN CHANGING OF POSITIONS Q2H. OFFLOADED PRESSURE AREAS. NO S/S OF ACUTE DISTRESS. SKIN CLEAN AND DRY. IV SITE PATENT AND INTACT.
--- NOTE | 2017-06-26 14:29 | NUR ---
06/26/17 RD FOLLOW UP COMPLETED PLEASE REFER TO NUTRITION PROGRESS NOTE UNDER CARE ACTIVITY FOR ESTIMATED NUTRITION NEEDS. 1. RECOMMEND NUTRITION SUPPORT: NUTREN PULMONARY AT 50 ML/HR X24 HOURS TOLERTED VIA GTUBE --THIS WILL PROVIDE 1200 ML TOTAL VOLUME, 1800 KCAL, 82 GM PROTEIN TO MEET 100% OF PT ESTIMATED KCAL AND PROTEIN NEEDS 2. RD TO FOLLOW-UP 2-3 DAYS, HIGH RISK MARY AMEZQUITA RD
[2017-06-26 16:00] VITALS: BP 119/68
--- NOTE | 2017-06-26 16:09 | NUR ---
PT SUCTIONED OBTAINED SMALL AMOUNT OF THICK WHITE SECRETIONS, AIRWAY IS PATENT. VS REMAINED NORMAL DURING SUCTIONING. TRACH IS SECURE.
--- NOTE | 2017-06-26 17:45 | NUR ---
PATIENT POSITIONED FOR COMFORT. OFFLOADED PRESSURE AREAS. PATIENT ON TUBE FEEDING NUTREN PULMONARY @ 50ML/HR Q4H FREE WATER FLUSH. PATIENT HAS MODERATE OUTPUT VIA WEST CATH. SKIN CLEAN AND DRY. LINENS CLEAN AND DRY. IVF INFUSING, NO S/S OF ACUTE DISTRESS NOTED. PATIENT MORE ALERT, EYES OPENING SPONTANEOUS. WITHDRAWS FROM PAIN.
--- NOTE | 2017-06-26 19:15 | NUR ---
SBAR REPORT GIVEN TO MINOR HARDWICK AT PT BEDSIDE. PT ON TRACH TO VENT. NO S/S OF ACUTE DISTRESS NOTED.
--- NOTE | 2017-06-26 19:16 | NUR ---
PATIENT REPORT RECEIVED FROM MORNING NURSE AT BEDSIDE. PATIENT IS APHASIC. PATIENT IS TRACH TO VENT WITH THE FOLLOWING SETTINGS: VENT AC-14, FIO2-28%, TV-500, AND PEEP-5. NO SIGNS AND SYMPTOMS OF DISTRESS NOTED. PICC LINE NOTED ON RIGHT UPPER ARM, DOUBLE LUMEN, WITH D5 1/2 NS RUNNING AT 100ML/HR, PICC LINE DRESSING IS DRY AND INTACT. G-TUBE IS NOTED ON LEFT UPPER QUADRANT OF ABDOMEN, CONNECTED TO TUBE FEEDING RUNNING CONTINUOUSLY AT 50ML/HR. WEST CATHETER IS IN PLACE, DRAINING A MODERATE AMOUNT OF YELLOW URINE. BED IN LOWEST POSITION, SIDE RAILS UP, SEIZURE PRECAUTIONS IN PLACE. WILL CONTINUE TO MONITOR.
[2017-06-26] MEDS: ATORVASTATIN 20 MG TAB PO SCH (20:19)
--- NOTE | 2017-06-26 21:00 | NUR ---
TUBE FEEDING PAUSED. G-TUBE CHECKED FOR PLACEMENT THROUGH AUSCULTATION. NO RESIDUAL NOTED. MEDICATION ADMINISTERED VIA G-TUBE ORDERED. PATIENT TOLERATED WELL.
--- NOTE | 2017-06-26 21:50 | NUR ---
PATIENT WAS SUCTIONED, SMALL AMOUNT OF WHITE SPUTUM OBTAINED. PATIENT TOLERATED WELL. Addendum: 06/26/17 at 2210 by Tru Lamar RN *SECRETIONS INSTEAD OF SPUTUM
[2017-06-27] VITALS (7 sets, daily range): BP systolic 0–116; BP diastolic 0–73
--- NOTE | 2017-06-27 | NUR ---
PATIENT WAS SUCTIONED. SMALL AMOUNT OF WHITE SECRETIONS OBTAINED. PATIENT TOLERATED WELL.
[2017-06-27] MEDS: Z-GUARD PASTE TP SCH ×2 (01:00→13:08)
[2017-06-27] MEDS: HYDRAGUARD CREAM TP SCH ×2 (01:00→13:08)
--- NOTE | 2017-06-27 02:00 | NUR ---
PATIENT TURNED Q2H SINCE START OF SHIFT TO OFFLOAD PRESSURE AREAS AND TO POSITION PATIENT COMFORTABLY.
[2017-06-27] MEDS: CLINDAMYCIN 600 MG in DEXTROSE 5% 50 ML IV SCH (04:50)
[2017-06-27] MEDS: METOCLOPRAMIDE 10 MG/10 ML SYRP UDC GT SCH ×2 (04:52→13:28)
[2017-06-27] MEDS: PHENYTOIN 100 MG/2 ML VIAL IVP SCH ×2 (04:52→13:28)
[2017-06-27] MEDS: BLOOD GLUCOSE MONITORING 1 DEV DEV FS SCH ×2 (06:44→11:30)
[2017-06-27 06:54] LABS: BASOPHILS # (AUTO) 0.2 K/uL (0.00-0.22); BASOPHILS % (AUTO) 2.2 % (0.0-2.0); EOSINOPHILS # (AUTO) 0.3 K/uL (0-0.4); EOSINOPHILS % (AUTO) 4.5 % (0.0-4.0); HEMATOCRIT 26.9 % (36-48); HEMOGLOBIN 8.8 g/dL (12.0-16.0); LYMPHOCYTES # (AUTO) 1.3 K/uL (2.5-16.5); LYMPHOCYTES % (AUTO) 17.7 % (20.5-51.1); MEAN CORPUSCULAR HEMOGLOBIN 31 pg (27-31); MEAN CORPUSCULAR HGB CONC 33 g/dL (33-37); MEAN CORPUSCULAR VOLUME 93 fL (80-94); MONOCYTES # (AUTO) 0.6 K/uL (0.8-1.0); MONOCYTES % (AUTO) 8.3 % (1.7-9.3); NEUTROPHILS # (AUTO) 4.9 K/uL (1.8-7.7); NEUTROPHILS % (AUTO) 67.3 % (42.2-75.2); PLATELET COUNT (AUTO) 361 K/uL (140-450); RED CELL DISTRIBUTION WIDTH 16.6 % (11.6-13.7); WHITE BLOOD COUNT (AUTO) 7.3 K/uL (4.8-10.8)
[2017-06-27 06:57] LABS: ANION GAP 11.4 (8-16); CARBON DIOXIDE 23.7 mmol/L (21-32); CREATININE 0.5 mg/dL (0.6-1.3); MAGNESIUM 1.8 mg/dL (1.8-2.4); PHOSPHORUS 2.6 mg/dL (2.5-4.9); POTASSIUM 3.1 mmol/L (3.5-5.1)
[2017-06-27] MEDS: ALBUTEROL SULFATE/IPRATROPIU 3 ML SOL IH SCH ×2 (07:00→13:00)
--- NOTE | 2017-06-27 07:00 | NUR ---
RECEIVED ON A [employer] CARESCAPE R860 VENTILATOR PLUGGED INTO RED OUTLET TOLERATING WELL WITHOUT ADVERSE REACTIONS NOTED TO A PORTEX DCT #7 AIRWAY SECURED WITH A CAITLIN TRACH TIE CUFF PRESSURE CHECKED NOTED MASIMO RADICAL-7 CONTINUOS PULSE OXIMETER AT BED SIDE ON AND FUNCTIONING WELL LOW SATURATION SET AT 92% AMBU BAG NOTED AT HOB LOC QUIET BREATH SOUNDS DIFFUSED RHONCHI BILATERAL WITH GOOD CHEST RISE DEEP TRACHEAL SUCTION FOR SMALL THIN PALE YELLOW SECRETIONS AIRWAY PATENT
--- NOTE | 2017-06-27 07:15 | NUR ---
PATIENT REPORT GIVEN TO MORNING NURSE AT BEDSIDE. PATIENT IS IN STABLE CONDITION.
--- NOTE | 2017-06-27 07:16 | NUR ---
RECEIVED REPORT FROM NIGHT RN, PT SLEEPING IN BED WITH TRACH TO VENT IN PLACE, NO S/S OF ACUTE DISTRESS, PT A/OX1, PT ORIENTED TO NAME, PT NONVERBAL, IV PATENT AND INTACT, RT AT BEDSIDE, SAFETY PRECAUTIONS TAKEN, CALL LIGHT WITHIN REACH, WILL CONT TO MONITOR.
[2017-06-27] MEDS: DEXT 5% / NACL 0.45% 1,000 ML IV SCH (07:50)
[2017-06-27] MEDS: FERROUS SULFATE 325 MG TABEC PO SCH (09:00)
[2017-06-27] MEDS: levETIRAcetam 1,000 MG in NACL 0.9% 100 ML IV SCH (09:12)
[2017-06-27] MEDS: ZINC SULF 220 MG CAP GT SCH (09:22)
[2017-06-27] MEDS: GLYCOPYRROLATE 1 MG TAB GT SCH (09:22)
[2017-06-27] MEDS: ASCORBIC ACID 500 MG TAB GT SCH (09:22)
[2017-06-27] MEDS: MULTIVITAMIN 5 ML ORASYR GT SCH (09:22)
[2017-06-27] MEDS: LANSOPRAZOLE 30 MG CAPDR GT SCH (09:22)
[2017-06-27] MEDS: THIAMINE 100 MG TAB GT SCH (09:22)
[2017-06-27] MEDS: LISINOPRIL 10 MG TAB GT SCH (09:22)
[2017-06-27] MEDS: DOCUSATE 100 MG/10 ML UDC GT SCH (09:23)
[2017-06-27] MEDS: NYSTATIN/TRIAMCINOLONE CRM 15 GM TUBE TP SCH (09:29)
--- NOTE | 2017-06-27 10:37 | NUR ---
AWAKE RESTING WELL NO EVIDENCE OF PULMOARY DISTRESS NOTED BREATH SOUNDS COARSE RHONCHI BILATERAL WITH GOOD CHEST RISE DEEP TRACHEAL SUCTION FOR MODERATE THIN YELLOW SECRETIONS NOTED AIRWAY PATENT
[2017-06-27] MEDS: LEVOFLOXACIN 750 MG/D5W PREMIX 150 ML IV SCH (10:47)
--- NOTE | 2017-06-27 11:58 | NUR ---
CM NOTE PER ABEBA N[facility] [place]# [phone], PATIENT CAN GO TO 4 B, DR. Telly OLMSTEAD. NUMBER TO CALL FOR REPORT PH# [phone]. PER EROS OF [facility], PATIENT WILL BE PICKED UP 1330 TIME TODAY. MADE AWARE THAT PATIENT IS TRACH TO VENT, ISOLATION PRECAUTIONS. REAL RN, EROS RN AWARE. CALLED PATIENT'S DAUGHTER DAJA PH# [phone] (NON-WORKING NUMBER). PATIENT'S SON IN LAW ALBERT AWARE. Addendum: 06/27/17 at 1217 by Joy Gomez CM ALBERT # [phone]
--- NOTE | 2017-06-27 12:03 | NUR ---
ASLEEP RESTING COMFORTABLY WITHOUT EVIDENCE OF PULMONARY DISTRESS NOTED BREATH SOUNDS CLEAR BILATERAL WITH GOOD CHEST AND AERATION THROUGHOUT AIRWAY PATENT OROPHARYNX SUCTION FOR LARGE GELATINOUS TO FROTHY CLEAR SECRETIONS
--- NOTE | 2017-06-27 12:10 | NUR ---
DR. TANA MORAN.
[2017-06-27] MEDS ORDERED: ALTEPLASE 2 MG VIAL MC SCH (13:07)
[2017-06-27] MEDS: FOAM DRESSING TP SCH (13:08)
[2017-06-27] MEDS ORDERED: POTASSIUM CHLORIDE 20% 40 MEQ/15 ML UDC GT SCH (13:30)
--- NOTE | 2017-06-27 13:40 | NUR ---
STABLE NO SOB NOTED VENTILATOR CHECK ONLY UNIT DOSE DUONEB NOT GIVEN [facility] AT BEDSIDE TO TRANSPORT [facility] LEFTY/RT REQUEST TRACHEOSTOMY TUBE KIT FOR TRANSPORT
--- NOTE | 2017-06-27 13:45 | NUR ---
JASMYNE 3#7 MANUEL TRACHEOSTOMY TUBE KIT GIVEN TO LEFTY/GINA RT Addendum: 06/27/17 at 1458 by Josh Kurtz RT JASMYNE #7 MANUEL
--- NOTE | 2017-06-27 13:45 | NUR ---
DR GRIGSBY MADE AWARE THAT PICC LINE RED LUMEN NOT ABLE TO FLUSH, ORDERED ATIVASE, MD AWARE THAT TRANSPORT WAS HERE FOR PICKUP AND NOT ENOUGH TIME TO INFUSE, PICTURES TAKEN OF SACRAL WOUND, GTUBE DISCONNECTED, FLUIDS DISCONNECTED, REPORT GIVEN TO [facility], PT TO BE TRANSPORTED TO [facility], FACILITY AWARE, PT IN STABLE CONDITION.
== END 2017-06-27 13:50 | disposition home or self-care (01) | DRG 720 ==
LOC: MED 21:48 → MTU 06-21 02:20
PROVIDERS: ADMIT Family Medicine; ATTEND Family Medicine
PROC: 5A1955Z Respiratory Ventilation, Greater than 96 Consecutive Hours (ICD-10-PCS; principal; 2017-06-20)
PROC: 30233N1 Transfusion of Nonautologous Red Blood Cells into Peripheral Vein, Percutaneous Approach (ICD-10-PCS; 2017-06-23)
DX: A41.9 Sepsis, unspecified organism (principal); N17.0 Acute kidney failure with tubular necrosis; J96.21 Acute and chronic respiratory failure with hypoxia; J69.0 Pneumonitis due to inhalation of food and vomit; G93.41 Metabolic encephalopathy; E43 Unspecified severe protein-calorie malnutrition; K22.11 Ulcer of esophagus with bleeding; D68.59 Other primary thrombophilia; I42.9 Cardiomyopathy, unspecified; G91.0 Communicating hydrocephalus; Z99.11 Dependence on respirator [ventilator] status; E83.41 Hypermagnesemia; K72.90 Hepatic failure, unspecified without coma; R65.20 Severe sepsis without septic shock; G40.909 Epilepsy, unspecified, not intractable, without status epilepticus; E66.3 Overweight; Z68.29 Body mass index [BMI] 29.0-29.9, adult; Z88.0 Allergy status to penicillin; Z88.8 Allergy status to other drugs, medicaments and biological substances; Z86.73 Personal history of transient ischemic attack (TIA), and cerebral infarction without residual deficits; J44.9 Chronic obstructive pulmonary disease, unspecified; F03.90 Unspecified dementia, unspecified severity, without behavioral disturbance, psychotic disturbance, mood disturbance, and anxiety; K21.9 Gastro-esophageal reflux disease without esophagitis; E07.9 Disorder of thyroid, unspecified; I10 Essential (primary) hypertension; Z86.718 Personal history of other venous thrombosis and embolism; Z82.3 Family history of stroke; J40 Bronchitis, not specified as acute or chronic; N39.0 Urinary tract infection, site not specified; K74.60 Unspecified cirrhosis of liver; K59.00 Constipation, unspecified; K56.7 Ileus, unspecified; E10.51 Type 1 diabetes mellitus with diabetic peripheral angiopathy without gangrene; D64.9 Anemia, unspecified; L89.899 Pressure ulcer of other site, unspecified stage; E87.6 Hypokalemia; J15.1 Pneumonia due to Pseudomonas; J15.8 Pneumonia due to other specified bacteria
CPT/HCPCS: 36415; 36600; 43753; 71010; 80048; 80053; 80185; 81001; 82140; 82150; 82607; 82728; 82746; 82803; 82948; 83036; 83540; 83605; 83690; 83735; 83880; 84100; 84439; 84443; 84484; 85025; 85045; 85610; 85730; 86886; 86900; 86901; 86920; 87040; 87070; 87081; 87086; 87186; 87205; 93005; 94002; 94003; 94640; 96365; 96366; 96376; 99285; C9113; J1165; J1815; J1953; J1956; J2001; J2916; J2997; J3480; J3490; J7030; J7042; J7060; J7620; J8597; P9016; Q0092; Q0163

== ENCOUNTER 2017-07-29 15:34 | Inpatient (IN) | payer MEDICAID ==
[~2017-07-29] VITALS: Ht 165.1 cm; Wt 66.8 kg
[2017-07-29] VITALS (7 sets, daily range): BP systolic 129–148; BP diastolic 67–105
[~2017-07-29 15:34] MED LIST changes: -FERR325E14 GT; -METO5SOL24 IVP
--- NOTE | 2017-07-29 15:35 | NUR ---
PLACED PT ON VENT SUPPORT ON SETTINGS RECEIVED FROM EMT AT AC 14, VT 500, PEEP 5, FIO2 28%, SUCTIONED SMALL YELLOW THIN SECRETIONS, PORTEX 7 TRACH SECURED AND PATENT, ALARMS SET AND AUDIBLE, AMBU BAG AT BEDSIDE, VENT PLUGGED INTO RED OUTLET, WILL CONT TO MONITOR
--- NOTE | 2017-07-29 15:40 | NUR ---
PATIENT BROUGHT IN BY AMBULANCE TO ED WITH R/O BOWEL OBSTRUCTION . PT HAS DEFICITS AND SHE IS UNABLE TO VERBALIZE OR COMMUNICATE . SKIN IS PINK/WARM/DRY; AAOX4 WITH EVEN AND STEADY GAIT; LUNGS CLEAR BL; HR EVEN AND REGULAR; NO FEVER, SOB, OR COUGH AT THIS TIME; VSS; PATIENT POSITIONED FOR COMFORT; HOB ELEVATED; BEDRAILS UP X2; BED DOWN. TRACH TO VENT, ER MD MADE AWARE OF PT STATUS.
[2017-07-29 16:25] LABS: BASOPHILS # (AUTO) 0.1 K/uL (0.00-0.22); BASOPHILS % (AUTO) 1.4 % (0.0-2.0); EOSINOPHILS # (AUTO) 0.3 K/uL (0-0.4); EOSINOPHILS % (AUTO) 3.3 % (0.0-4.0); HEMATOCRIT 27.8 % (36-48); HEMOGLOBIN 9.1 g/dL (12.0-16.0); LYMPHOCYTES # (AUTO) 1.7 K/uL (2.5-16.5); LYMPHOCYTES % (AUTO) 18.9 % (20.5-51.1); MEAN CORPUSCULAR HEMOGLOBIN 28 pg (27-31); MEAN CORPUSCULAR HGB CONC 33 g/dL (33-37); MEAN CORPUSCULAR VOLUME 86 fL (80-94); MONOCYTES # (AUTO) 0.5 K/uL (0.8-1.0); NEUTROPHILS # (AUTO) 6.6 K/uL (1.8-7.7); NEUTROPHILS % (AUTO) 71.4 % (42.2-75.2); PLATELET COUNT (AUTO) 511 K/uL (140-450); RED BLOOD CELL COUNT(AUTO) 3.24 MIL/uL (4.20-5.40); RED CELL DISTRIBUTION WIDTH 16.5 % (11.6-13.7); WHITE BLOOD COUNT (AUTO) 9.2 K/uL (4.8-10.8)
[2017-07-29 16:41] LABS: ALBUMIN 1.5 g/dL (3.4-5.0); ANION GAP 8.1 (8-16); CARBON DIOXIDE 25.9 mmol/L (21-32); CREATININE 0.5 mg/dL (0.6-1.3); TOTAL BILIRUBIN 0.1 mg/dL (0.0-1.0)
[2017-07-29] MEDS ORDERED: PHEN125S GT ×2 (16:42→22:30)
[2017-07-29] MEDS ORDERED: METO5SOL19 GT (16:42)
[2017-07-29] MEDS ORDERED: COL100L GT (16:42)
[2017-07-29] MEDS ORDERED: FERR75LI22 GT (16:42)
[2017-07-29] MEDS ORDERED: LISI10TA11 GT (16:42)
[2017-07-29] MEDS ORDERED: ZINC220C12 GT (16:42)
[2017-07-29] MEDS ORDERED: ASPI81CT89 GT (16:42)
[2017-07-29] MEDS ORDERED: CRAN450C GT (16:42)
[2017-07-29] MEDS ORDERED: TAP5 GT (16:42)
[2017-07-29] MEDS ORDERED: ATOR40TA GT (16:42)
[2017-07-29] MEDS ORDERED: ACET-2619 GT (16:42)
[2017-07-29] MEDS ORDERED: MAGN400S60 PO (16:42)
[2017-07-29] MEDS ORDERED: MULT-2246 GT (16:42)
[2017-07-29] MEDS ORDERED: ONDA4TAB GT (16:42)
[2017-07-29] MEDS ORDERED: NA P133E RC (16:42)
[2017-07-29] MEDS ORDERED: DOCU-299 PO (16:42)
[2017-07-29] MEDS ORDERED: VITC500 GT (16:42)
[2017-07-29] MEDS ORDERED: LACT10SO11 GT (16:42)
[2017-07-29] MEDS ORDERED: BISA-213 RC (16:42)
[2017-07-29] MEDS ORDERED: ESOM40EC GT (16:42)
--- NOTE | 2017-07-29 16:43 | NUR ---
NOTIFIED DR SANTIAGO OF POTASIUM LEVEL OF 2.0
--- NOTE | 2017-07-29 16:43 | NUR ---
PATIENT TRANSPORTED TO CT SCAN WITH RT, DR. PAMELA LOWERY WITH PATIENT BEING OFF THE MONITOR FOR CT SCAN.
--- NOTE | 2017-07-29 17:15 | NUR ---
PATIENT RETURNED FROM CT RESTING IN BED, VSS, NO APPARENT DISTRESS
[2017-07-29] MEDS ORDERED: AZITHROMYCIN 500 MG in DEXTROSE 5% 250 ML IV ONE (18:05)
--- NOTE | 2017-07-29 18:21 | NUR ---
DR. SANTIAGO EVALUATING PATIENT
[2017-07-29] MEDS ORDERED: AZITHROMYCIN 500 MG INJ VIAL IV ONE (18:29)
--- NOTE | 2017-07-29 18:30 | NUR ---
PCP NOTED DR. THOMSON WILL ADMIT PATIENT
[2017-07-29] MEDS ORDERED: NACL 0.9% 1,000 ML IV SCH (18:37)
[2017-07-29] MEDS ORDERED: MORPHINE SULFATE 2 MG/ML SYR IVP PRN (18:40)
[2017-07-29] MEDS ORDERED: HYDROcodone/APAP 7.5/325 MG 1 TAB PO PRN (18:40)
[2017-07-29] MEDS ORDERED: ONDANSETRON 4 MG/2 ML VIAL IM/IVP PRN (18:40)
[2017-07-29] MEDS ORDERED: DOCUSATE SODIUM 100 MG GELCAP PO PRN (18:40)
[2017-07-29] MEDS ORDERED: ACETAMINOPHEN 325 MG TAB PO PRN (18:40)
[2017-07-29 18:44] LABS: PROTHROMBIN TIME 12.7 secs (10.8-13.4)
[2017-07-29] MEDS ORDERED: KCL 20 MEQ/WATER INJ PREMIX 200 ML IV SCH (18:45)
--- NOTE | 2017-07-29 19:21 | NUR ---
BEDSIDE REPORT GIVEN TO RN. Transfer of care at this time.
[2017-07-29 19:22] LABS: CHOL/HDL RATIO 2.4 (1-4.5); FREE T4 (FREE THYROXINE) 0.95 ng/dL (0.76-1.46); PHOSPHORUS 3.1 mg/dL (2.5-4.9); THYROID STIMULATING HORMONE 1.21 uIU/mL (0.34-3.74)
[2017-07-29 19:24] LABS: BILIRUBIN,URINE NEGATIVE (NEGATIVE); BLOOD, URINE TRACE-I (NEGATIVE); COLOR,URINE YELLOW (YELLOW); LEUKOCYTE ESTERASE ,URINE 1+ (NEGATIVE); NITRITE, URINE POSITIVE (NEGATIVE); UGLUCOSE NEGATIVE (NEGATIVE)
[2017-07-29 19:27] LABS: APPEARANCE,URINE HAZY (CLEAR)
--- NOTE | 2017-07-29 19:45 | NUR ---
RECEIVING PT FROM ER, PT WAS COMING WITH LEYLA WITH RT AND RN FROM ER. PT IS AWAKE NON VERBAL. UNABLE TO FOLLOW COMMANDS. PER REPORT FROM EROS GAXIOLA PT IS COMING FROM CORRE[place]. PT IS TRACH TO VENT WITH VENT SETTING AC 14 VT 500 FIO2 28 AND PEEP 5. C/O ABD PAIN. WITH DX TO R/O BOWEL OBSTRUCTION. PT WITH HX DM,CVA,SEIZURE DISORDER,,CHF AND COPD.PER EROS GAXIOLA PT HAS SACRO COCCYX STAGE 4 PICTURE WAS TAKEN IN ER ALREADY. FAMILY IS NOT CONTACTED YET,ZYTROMAX WAS RUNNING FROM FIRST DOSE PER REPORT.NPO EXCEPT MEDS. GT IS IN PLACE.F/C IN PLACE WITH YELLOW CLEAR URINE. PER EROS GAXIOLA. UA AND C&S WAS COLLECTED. KEPT PT CLEAN AND DRY.
--- NOTE | 2017-07-29 20:00 | NUR ---
PT IS AWAKE NON VERBAL, NOT FOLLOW COMMAND. PT IS TRACH TO VENT WITH SETTING AC 14,TV 500, FIO2 28% AND PEEP 5. SKIN WARM TO TOUCH. SINUS RHYTHM ON MONITOR.RONCHY TO BILATERAL LUNGS . PERIPHERAL IV LINE TO LEFT HAND NO [address] TO LEFT UPPER ABD.POSITIVE BOWEL SOUNDS TO ALL QUADRANTS. EDEMA NOTED TO BUE AND BLE +1 NON PITTING.ELEVATED BUE/BLE WITH SOFT PILLOWS. SACRO COCCYX PU AREA COVER WITH DRY CLEAN DRESSING.F/C IN PLACE WITH YELLOW CLEAR URINE NOTED.PT HAS BM SMALL YELLOW SOFT. GENTLE CARE GIVEN. KEPT PT CLEAN AND DRY. PLACE CALL TO DAJA CACERES. UNABLE TO LEFT MESSAGE.
[2017-07-29] MEDS ORDERED: ALBUTEROL SULFATE/IPRATROPIU 3 ML SOL IH PRN (20:05)
--- NOTE | 2017-07-29 20:30 | NUR ---
MRSA FOR NARES COLLECTED AND SENT TO LAB.
[2017-07-29 20:43] LABS: RBC,URINE 0-5 (RARE) /HPF (0-5)
--- NOTE | 2017-07-29 21:00 | NUR ---
COME TO SEE PT REPORTED TO HIM UN ABLE TO PUT EXTRA LINE YET. STILL INFUSING IV AND WILL GIVE K-RIDER ORDER. PER MD ITS OKAY.ALSO PER MD TO INSERT NGT CONNECT TO INTERMITTEN SUCTION.PER PT IS NPO EXCEPT MEDS. MAY GIVE MEDS VIA GT.
[2017-07-29] MEDS ORDERED: SODIUM PHOSPHATE 118 ML ENEM RC PRN ×2 (21:05)
[2017-07-29] MEDS ORDERED: ONDANSETRON 4 MG TAB GT PRN (21:05)
[2017-07-29] MEDS ORDERED: ACETAMINOPHEN 325 MG TAB GT PRN ×2 (21:05)
[2017-07-29] MEDS ORDERED: BISACODYL 5 MG TABEC PO PRN (21:05)
[2017-07-29] MEDS ORDERED: BISACODYL 10 MG SUPP RC PRN (21:05)
--- NOTE | 2017-07-29 21:15 | NUR ---
NGT INSERTED TO LEFT NARES. CONNECTED TO INTERMITTENT SUCTION. NO DRAINAGE NOTED AT THIS TIME.
--- NOTE | 2017-07-29 22:00 | NUR ---
MD MADE AWARE PT HAS DM AND NO COVERAGE YET. PER MD WILL PUT THE ORDER. AT THIS TIME BLOOD SUGAR IS 74,NO INSULIN COVERAGE NEEDED. SKIN WARM TO TOUCH. KEPT CLEAN AND DRY.CONT TO MONITOR.
[2017-07-29] MEDS ORDERED: DEXTROSE 50% 50 ML SYR IVP PRN (22:10)
[2017-07-29] MEDS ORDERED: DEXT 5% / NACL 0.9% 500 ML IV SCH (22:10)
[2017-07-29] MEDS ORDERED: INSULIN LISPRO SLIDING SCALE 100 UNITS/ML VIAL SUBQ PRN (22:10)
[2017-07-29] MEDS ORDERED: ROB1 GT (22:30)
[2017-07-30] VITALS (15 sets, daily range): BP systolic 112–165; BP diastolic 53–78
[2017-07-30] MEDS: LEVOFLOXACIN 750 MG/D5W PREMIX 150 ML IV SCH ×2 (00:23→21:28)
[2017-07-30] MEDS: DEXT 5% / NACL 0.9% 500 ML IV SCH ×2 (00:24→04:36)
[2017-07-30] MEDS ORDERED: CLINDAMYCIN 600 MG/4 ML VIAL ONE (00:50)
--- NOTE | 2017-07-30 00:50 | NUR ---
DR.CHOW ZEPEDA MADE AWARE THAT CLEOCIN 600 MG FIRST DOSE DID NOT GIVEN YET D/T PT ONLY HAVE I IV PERIPHERAL LINE. ALREADY TRYING WITH ANOTHER RN TO INSERT STILL UN BALE TO INSERTED EXTRA LINE. PER ITS OKAY. PER JUST GIVE DOSE 5 AM.NO NEED THE X1 DOSE.
--- NOTE | 2017-07-30 02:00 | NUR ---
PT SLEPT WELL. EASY TO AWAKE. REPOSITION PT FOR COMFORT. NO S/S OF RESP.DISTRESS. NO SOB.
--- NOTE | 2017-07-30 04:15 | NUR ---
AM CARE GIVEN,F/C CARE GIVEN.SPONGE BATH GIVEN. VAP ORAL CARE GIVEN.DRESSING IS DRY ON SACRO COCCYX AREA. GENTLE CARE GIVEN. KEPT CLEAN AND DRY. HOB UP 30-45 DEGREE ALL THE TIMES.
[2017-07-30] MEDS: PHENYTOIN 100 MG/4 ML UDC GT SCH ×3 (04:36→21:19)
[2017-07-30] MEDS: CLINDAMYCIN 600 MG in DEXTROSE 5% 50 ML IV SCH ×3 (04:37→20:55)
[2017-07-30] MEDS ORDERED: METOCLOPRAMIDE 10 MG/10 ML SYRP UDC GT SCH (05:00)
--- NOTE | 2017-07-30 05:20 | NUR ---
SALESPERSON JEWELRY COME TO DRAW BLOOD FOR PT.
[2017-07-30] MEDS ORDERED: SODIUM PHOSPHATE 118 ML ENEM RC SCH (06:00)
[2017-07-30] MEDS: ALBUTEROL SULFATE/IPRATROPIU 3 ML SOL IH SCH ×3 (06:00→18:55)
[2017-07-30 06:08] LABS: BASOPHILS # (AUTO) 0.1 K/uL (0.00-0.22); BASOPHILS % (AUTO) 1.3 % (0.0-2.0); EOSINOPHILS # (AUTO) 0.2 K/uL (0-0.4); EOSINOPHILS % (AUTO) 2.9 % (0.0-4.0); HEMATOCRIT 27.1 % (36-48); HEMOGLOBIN 8.7 g/dL (12.0-16.0); LYMPHOCYTES # (AUTO) 1.8 K/uL (2.5-16.5); LYMPHOCYTES % (AUTO) 22.6 % (20.5-51.1); MEAN CORPUSCULAR HEMOGLOBIN 28 pg (27-31); MEAN CORPUSCULAR HGB CONC 32 g/dL (33-37); MEAN CORPUSCULAR VOLUME 87 fL (80-94); MONOCYTES # (AUTO) 0.4 K/uL (0.8-1.0); MONOCYTES % (AUTO) 4.6 % (1.7-9.3); NEUTROPHILS # (AUTO) 5.3 K/uL (1.8-7.7); NEUTROPHILS % (AUTO) 68.6 % (42.2-75.2); PLATELET COUNT (AUTO) 456 K/uL (140-450); RED BLOOD CELL COUNT(AUTO) 3.11 MIL/uL (4.20-5.40); RED CELL DISTRIBUTION WIDTH 16.8 % (11.6-13.7); WHITE BLOOD COUNT (AUTO) 7.8 K/uL (4.8-10.8)
[2017-07-30 06:20] LABS: MAGNESIUM 1.9 mg/dL (1.8-2.4); PHOSPHORUS 2.5 mg/dL (2.5-4.9)
--- NOTE | 2017-07-30 06:43 | NUR ---
RECEIVED PT ON CARESCAPE ON A/C 14 VT500 PEEP5 FIO2 28 ALARMS ARE ON AND FUNCTIONAL PT TRACH PORTEX 7 IS SECURE PT IN HF ASLEEP NO APPRENT DISTRESS VENT PLUGGED INTO RED OUTLET Addendum: 07/30/17 at 0852 by Jackelin Gunderson RT CUFF PRESSURE 30 CMH20
[2017-07-30 06:46] LABS: ANION GAP 10.5 (8-16); CARBON DIOXIDE 23.6 mmol/L (21-32); CREATININE 0.5 mg/dL (0.6-1.3)
[2017-07-30 06:50] LABS: POTASSIUM 2.1 mmol/L (3.5-5.1)
[2017-07-30] MEDS: BLOOD GLUCOSE MONITORING 1 DEV DEV FS SCH ×4 (06:58→21:17)
[2017-07-30] MEDS ORDERED: ACETAMINOPHEN 650 MG/20.3 ML UDC GT PRN ×2 (07:00→07:01)
[2017-07-30] MEDS ORDERED: ACETAMINOPHEN 650 MG/20.3 ML UDC PO PRN (07:00)
[2017-07-30] MEDS ORDERED: DOCUSATE 100 MG/10 ML UDC PO PRN (07:01)
[2017-07-30] MEDS: DEXT 5% /NACL 0.9% 1,000 ML IV SCH ×2 (07:14→13:47)
--- NOTE | 2017-07-30 07:20 | NUR ---
REPORT RECEIVED FROM [facility] SHIFT MINOR INIGUEZ. PT RESTING IN BED. SPONTANEOUS EYES OPENING. PUPILS REACTIVE TO LIGHT. SKIN DRY AND WARM TO TOUCH. NO ACUTE DISTRESS NOTED. NG TUBE IN PLACE ATTACHED TO SUCTION INTERMITTENT. NO DRAINAGE. PT ON TRACH TO VENT WITH VENT AC/VC MODE SETTING FIO2 28 TV 500 RR 14 PEEP 5. WHEEZING ON LUNGS AUSCULTATION. PERIPHERAL LINE ON LEFT HAND 24G RUNNING D5%NS AT 100 ML/HR. IV SITE INTACT. GUTBE IN PLACE. VENTRAL HERNIA PRESENT. ABDOMEN SOFT AND NON TENDER. WEST'S CATH IN PLACE DRAINING CLEAR YELLOW URINE. SKIN DISCOLORATION ON CHEST AND LEFT FOREARM. EDEMATOUS LLE. KEPT LLE ELEVATED. HOB ELEVATED. BED LOCKED. WILL CONTINUE TO MONITOR. .
--- NOTE | 2017-07-30 07:20 | NUR ---
REPORT GIVEN TO YOAN GAXIOLA. PT IS STABLE AT THIS TIME. AM SHIFT MADE AWARE FLEET BELA WAS GIVEN. K RESULT 2.[address] VELASCO MADE AWARE.
[2017-07-30] MEDS ORDERED: FERROUS GLUCONATE 324 MG TAB PO SCH (08:00)
--- NOTE | 2017-07-30 08:32 | NUR ---
PATIENT HAS BEEN SCREENED AND CATEGORIZED HIGH NUTRITION RISK. PATIENT WILL BE SEEN WITHIN 1-2 DAYS OF ADMISSION. 07/29/17-07/30/[address]
--- NOTE | 2017-07-30 08:44 | NUR ---
DR. MELTON AND RESIDENT GROUP IN TO SEE PT. WILL FOLLOW UP ON ORDER.
[2017-07-30] MEDS: FERROUS SULFATE 300 MG/5 ML UDC GT SCH (08:57)
[2017-07-30] MEDS: ASPIRIN 81 MG TAB.CHEW GT SCH ×2 (08:57→21:18)
[2017-07-30] MEDS: DOCUSATE 100 MG/10 ML UDC GT SCH (08:57)
[2017-07-30] MEDS: GLYCOPYRROLATE 1 MG TAB GT SCH ×2 (08:58→21:18)
[2017-07-30] MEDS: METHIMAZOLE 5 MG TAB GT SCH ×2 (08:58→21:18)
[2017-07-30] MEDS: ASCORBIC ACID 500 MG TAB GT SCH (08:58)
[2017-07-30] MEDS: LISINOPRIL 10 MG TAB GT SCH (08:59)
[2017-07-30] MEDS: ZINC SULF 220 MG CAP GT SCH (08:59)
[2017-07-30] MEDS: LACTOBACILLUS RHAMNOSUS GG 1 EACH CAP PO SCH (08:59)
[2017-07-30] MEDS: PANTOPRAZOLE 40 MG INJ VIAL IVP SCH (08:59)
[2017-07-30] MEDS ORDERED: LACTULOSE 20 GM/30 ML UDC GT SCH (09:00)
[2017-07-30] MEDS ORDERED: DOCUSATE 100 MG/10 ML UDC GT SCH (09:00)
[2017-07-30] MEDS ORDERED: POTASSIUM CHLORIDE 20% 40 MEQ/15 ML UDC GT SCH (09:20)
--- NOTE | 2017-07-30 09:31 | NUR ---
MEDICATION DONE TOLERATING WELL. NO ACUTE DISTRESS NOTED. SR ON MONITOR. PT AFEBRILE. WILL CONTINUE TO MONITOR.
--- NOTE | 2017-07-30 10:49 | NUR ---
DECREASE VT TO 450
--- NOTE | 2017-07-30 11:00 | NUR ---
WOUND CARE EVALUATION NOTES: REASON FOR EVALUATION: SACRALCOCCYX WOUND, LOW LUIS SCALE COMPLETE SKIN ASSESSMENT DONE ON THIS 61Y/O FEMALE PAT[place] [facility] [place] [facility], WITH DISTENDED ABDOMEN X 1 WEEK. PAST MEDICAL HISTORY INCLUDE CVA WITH ICH, DIABETES, HYPERTENSION SEIZURE DISORDERS AND DEMENTIA. ABOVE INFORMATION OBTAINED FROM THE ADMISSION H&P. CURRENT MEDS INCLUDE LEVOFLOXACIN , CLINDAMYCIN, DILANTIN, ALBUTEROL, REGLAN AND LIPITOR. WBC 7.8, H/H 8.7/27.1, GLUCOSE 92, ALBUMIN 1.5, PT/INR 12.7/1.3 AND PTT 31.5. PATIENT IS NON-VERBAL. SKIN WARM TO TOUCH WNL, MULTIPLE ECCHYMOSIS TO UPPER EXTREMITIES AND MID. CHEST AREA THICKENED TOENAILS, NO HAIR GROWTH BLE AND BILATERAL PEDAL PULSES PRESENT. GT IN PLACE , TRACH. IN PLACE, #16 WEST CATHETER PATENT AND INTACT TO CLEAR YELLOW COLORED URINE IN MODERATE AMOUNT. NEEDS ASSISTANCE IN TURNING. PLAN OF CARE DISCUSSED WITH PRIMARY RN. INTEGUMENTARY: LEFT FRONTAL AND LEFT BEHIND EAR S/P MULTIPLES OLD HEALED SCARS DRY AND CLEAN HX OF CRANIOTOMY TO RIGHT TEMPORAL, SCALP SKIN INTACT, NON-BULGED TRACHEOSTOMY STOMA SITE CLEAN AND SURROUNDING SKIN INTACT LUQ AND GT STOMA SITE CLEAN AND SURROUNDING SKIN INTACT MID ABDOMEN CHRONIC HERNIA UPPER CHEST MULTIPLE ECCHYMOSIS WITH LARGEST MEASURE 3X2 CM ABDOMINAL FOLDS AND GROINS MOIST AND CLEAN SACRALCOCCYX PRESSURE ULCER STAGE 4, 9X10 CM DEPTH IS UNABLE TO DETERMINE DUE TO SLOUGH COVERED. WOUND WITH UNDERMINING BETWEEN 8 O'CLOCK TO 11 O'CLOCK WITH DEEPEST AT 10 O'CLOCK MEASURED 5 CM DEEP, WOUND BED PALE PINK IN COLOR, 20% OF YELLOW SLOUGH IN THE CENTER OF WOUND BED, MODERATE AMOUNT OF PURULENT DRAINAGE WITH FOUL ODOR, WOUND EDGE FLAT WITH SURROUNDING REDNESS AREA [id number] INDICATE FURTHER DAMAGE BILATERAL ELBOW AND HEELS BLANCHABLE REDNESS RECOMMENDATIONS: -WOUND CULTURE -DEBRIDEMENT TO SACRALCOCCYX AREA IF PT. CONDITION PERMITTED -WOUND VAC. TX TO SACRALCOCCYX AREA PROTOCOL IF AGREEABLE WITH DOCTOR, IF NO WOUND VAC. PLEASE CLEAN SACRALCOCCYX WOUND WITH WOUND CARE SOLUTION , PAT DRY APPLY THERAHONEY WITH SILVER ALGINATE AND PACK WITH DRY DRESSING AND ABDOMENAL PAD, SECURE WITH TAPE QD AND PRN IF SOILING -UPPER CHEST ECCHYMOSIS KEEP DRY AND CLEAN APPLY OPTIFORM QD TO PREVENT IRRITATION FROM TRACH TUBING - CLEAN ABDOMINAL FOLDS AND GROINS AREAS WITH SOAP AND WATER, PAT DRY APPLY INTERDRY QD AND CHANGE INTERDRY Q7 DAYS -TURN AND REPOSITION PATIENT Q2H TO LEFT AND RIGHT SIDE ONLY TO OFFLOAD SACRALCOCCYX -ASSESS AND MONITOR SKIN CONDITION DURING POSITION CHANGE, PLEASE PAY ATTENTION TO SACRALCOCCYX, ELBOWS AND HEELS -OFFLOAD BILATERAL HEELS BY PLACING PILLOWS UNDER CALVES AT ALL TIMES, UNLESS OTHERWISE CONTRAINDICATED -PRESSURE REDISTRIBUTION SURFACE THERAPY -KEEP SKIN CLEAN AND DRY AT ALL TIMES. COMORBIDITIES RELATED TO SKIN BREAK DOWN: HX OF PRESSURE ULCER, CHRONIC BOWEL AND BLADDER INCONTINENT, DM, IMPAIRED MOBILITY, COGNITIVE IMPAIRMENT AND HOB ELEVATED THE MAJORITY OF THE DAY FOR MEDICAL CONDITION RECOMMENDATIONS DISCUSSED WITH PRIMARY RN WILL FOLLOW UP PATIENT Q 7 -10 DAYS AND PRN. PLEASE CONTACT WOUND CARE NURSE FOR ANY CONCERNS AND CHANGES IN WOUND CONDITION Addendum: 07/30/17 at 1312 by Miguel Jaime RN (Grace) SPOKE TO DR. CHUA AT ICU, NO SURGICAL DEBRIDEMENT ONLY NEEDS ENZYMIC DEBRIDEMENT. AND WOUND VAC TX.
[2017-07-30] MEDS: POTASSIUM CHLORIDE 20% 40 MEQ/15 ML UDC GT SCH ×2 (11:57→18:08)
--- NOTE | 2017-07-30 12:01 | NUR ---
PT RESTING IN BED. NO ACUTE DISTRESS NOTED. NO CHANGE IN LOC. ADMINISTERED MEDICINE PER ORDER. PT TOLERATING WELL. WILL CONTINUE TO MONITOR.
--- NOTE | 2017-07-30 12:30 | NUR ---
DR ENRIQUE IN TO SEE PT. WILL FOLLOW UP ON MONITOR. Addendum: 07/30/17 at 1530 by Eden Crews RN MONITOR CORRECTED TO ORDER.
--- NOTE | 2017-07-30 12:35 | NUR ---
SPOKE TO DAUGHTER PORTIA, NOTIFY OF SACRALCOCCYX PRESSURE ULCER INJURY STAGE 4 AND RECOMMENDATIONS, ALL QUESTION ANSWERED.
--- NOTE | 2017-07-30 12:40 | NUR ---
SEEN BY . WILL FOLLOW UP ON ORDER.
--- NOTE | 2017-07-30 14:18 | NUR ---
PT RESTING IN BED COMFORTABLY. NO ACUTE DISTRESS. SR ON MONITOR. BP 131/75. AFEBRILE. NO CHANGE IN LOC. WILL CONTINUE TO MONITOR.
--- NOTE | 2017-07-30 15:29 | NUR ---
07/30/17 RD INITIAL ASSESSMENT COMPLETED PLEASE REFER TO NUTRITION ASSESSMENT UNDER CARE ACTIVITY FOR ESTIMATED NUTRITIONAL NEEDS. 1.PT TO REMAIN NPO MEDICALLY NECESSARY. 2.DIET TO ADVANCE TOLERATED, PT TO CONSUME >75% OF ESTIMATED ENERGY AND PROTEIN NEEDS WITHIN 2-3 DAYS. 3.RD TO FOLLOW-UP IN 2-3 DAYS, HIGH RISK ANKUR CHILDS, RD
[2017-07-30] MEDS: THERAHONEY WOUND DRESSING TP SCH (16:00)
--- NOTE | 2017-07-30 16:00 | NUR ---
CONTINUOUS WOUND VAC ON ORDER. THERAHONEY NOT APPLIED. NOTIFIED CHARGE NURSE.
--- NOTE | 2017-07-30 16:41 | NUR ---
PT RESTING IN BED COMFORTABLY. NO ACUTE DISTRESS NOTED. NO CHANGE IN LOC. AFEBRILE. SR ON MONITOR. BP 120/73. WILL CONTINUE TO MONITOR.
[2017-07-30 17:19] LABS: POTASSIUM 3.2 mmol/L (3.5-5.1)
[2017-07-30 17:20] LABS: CARBON DIOXIDE 24.2 mmol/L (21-32); CREATININE 0.6 mg/dL (0.6-1.3)
--- NOTE | 2017-07-30 18:10 | NUR ---
ADMINISTERED MEDICINE PER ORDER. TOLERATING WELL. SR ON MONITOR. BP 121/58. NO ACUTE DISTRESS. NO VHANGE IN LOC. WILL CONTINUE TO MONITOR.
--- NOTE | 2017-07-30 19:20 | NUR ---
PT ON STABLE CONDITION. NO ACUTE DISTRESS. NO CHANGE IN LOC. PT TRANSFERRED TO TELE UNIT BED 108B. HANDED ALL THE BELONGINGS. PT ON STABLE CONDITION. TRANSFERRED SAFELY. REPORT GIVEN TO TELE NURSE AMINATA.
--- NOTE | 2017-07-30 19:45 | NUR ---
RECEIVED REPORT FROM ICU NURSE. PT RESTING IN BED, AWAKE, APHASIC, UNABLE TO VERBALIZE NEEDS, BEDBOUND. TIPPLE ENGINEER IN PLACE, NO S/S OF ACUTE DISTRESS. SPO2 98% ON TRACH TO VENT, RR 16 EVEN AND UNLABORED. TRACH DRESSING SATURATED WITH SECRETIONS, DRESSING CHANGED. PT HAS NGT TO LEFT NARE, ON LOW WALL INTERMITTENT SUCTION. GTUBE NOTED, DRESSING CHANGED. WEST CATH IN PLACE, DRAINING CLEAR YELLOW URINE. PT HAS MULTIPLE ECCHYMOSIS ON CHEST. SACRAL DRESSING CLEAN DRY AND INTACT. PT HAS ORDER FOR WOUND VAC, WILL NOTIFY CHARGE NURSE AND WOUND CARE NURSE. IV ACCESS ASYMPTOMATIC, PATENT AND INTACT. IVF INFUSING WELL. DISCUSSED AND REVIEWED PLAN OF CARE WITH PT, APHASIC, WILL CONTINUE WITH CONSTANT REINFORCEMENT. PT TURNED AND REPOSITIONED, OFFLOADED PRESSURE AREAS. ALL NEEDS MET. SAFETY MEASURES ENSURED. CALL LIGHT WITHIN REACH. WILL CONTINUE TO MONITOR.
[2017-07-30] MEDS: ATORVASTATIN 20 MG TAB GT SCH (21:19)
--- NOTE | 2017-07-30 21:30 | NUR ---
BLOOD GLUCOSE 120, NO INSULIN COVERAGE NEEDED. GTUBE PLACEMENT VERIFIED, RESIDUAL 1ML, ADMINISTERED DUE MEDS VIA GTUBE. PT TURNED AND REPOSITIONED, OFFLOADED PRESSURE AREAS. ALL NEEDS MET. IVPB INFUSING WELL. SAFETY MEASURES ENSURED. CALL LIGHT WITHIN REACH. WILL CONTINUE TO MONITOR.
[2017-07-31] VITALS: BP 113/68
[2017-07-31] MEDS: POTASSIUM CHLORIDE 20% 40 MEQ/15 ML UDC GT SCH (00:30)
--- NOTE | 2017-07-31 00:30 | NUR ---
PT'S DRESSING SOILED, WOUND CLEANSED WITH NS AND GAUZE, PAT DRY. THERAHONEY APPLIED, COVERED WITH ADAPTIC AND 4X4 AND OPTIFOAM. PT TURNED AND REPOSITIONED, OFFLOADED PRESSURE AREAS. NGT LOW WALL INTERMITTENT SUCTION PAUSED, WILL CONTINUE AFTER 1 HOUR. GTUBE PLACEMENT VERIFIED, RESIDUAL 1ML, ADMINISTERED DUE MED VIA GTUBE. ALL NEEDS MET. IVF INFUSING WELL. SAFETY MEASURES ENSURED. CALL LIGHT WITHIN REACH. WILL CONTINUE TO MONITOR.
[2017-07-31] MEDS: DEXT 5% /NACL 0.9% 1,000 ML IV SCH ×2 (03:54→17:00)
[2017-07-31 04:00] VITALS: BP 106/42
[2017-07-31] MEDS: PHENYTOIN 100 MG/4 ML UDC GT SCH ×3 (04:30→20:09)
[2017-07-31] MEDS: CLINDAMYCIN 600 MG in DEXTROSE 5% 50 ML IV SCH ×3 (04:30→20:09)
--- NOTE | 2017-07-31 04:30 | NUR ---
SACROCOCCYX WOUND CLEANSED WITH NS AND GAUZE, PAT DRY. CONTINUOUS WOUND VAC PLACED WITH POULTRY AND FISH BUTCHER AND WORLD RENOWNED CHEF AND RESTAURANT OWNER, SUCTIONING WELL. PT TURNED AND REPOSITIONED, OFFLOADED PRESSURE AREAS. ORAL CARE PROVIDED. PT TOLERATED WELL. OBSERVED PT'S REDUCIBLE HERNIA PROTRUDING AFTER PT COUGHED, PLACED ABD BINDER TO KEEP HERNIA REDUCED. PAUSED NGT LOW INTERMITTENT SUCTION, WILL CONTINUE IN 1 HR. VERIFIED GTUBE PLACEMENT, RESIDUAL 1ML, ADMINISTERED DUE MED VIA GTUBE. ALL NEEDS MET. IVPB INFUSING WELL. SAFETY MEASURES ENSURED. CALL LIGHT WITHIN REACH. WILL CONTINUE TO MONITOR.
[2017-07-31 06:15] LABS: T4 (THYROXINE) 4.8 ug/dL (4.5-12.0)
[2017-07-31] MEDS: ALBUTEROL SULFATE/IPRATROPIU 3 ML SOL IH SCH ×3 (06:34→19:28)
--- NOTE | 2017-07-31 06:34 | NUR ---
REC'D PT ON CARESCAPE VENT SETTINGS AC 14 VT 450 PEEP 5 FIO2 28% ALARMS ON AND FUNCTIONING PROPERLY, AMBU BAG IS AT SIDE OF VENT AND VENT IS PLUGGED INTO RED OUTLET NO HHN GIVEN PT IS SLEEPING WITH NO SIGNS OF DISTRESS NOTED AT THIS TIME, B\S ARE CLEAR BILATERALLY SXN PT SMALL AMT OF CREAM COLOR SECRETIONS, PT IS TRACH WITH PORTEX 7 AND CUFF PRESSURE IS 28 CM H20 AND SKIN INTEGRITY IS INTACT CHANGED TRACH GAUZE
[2017-07-31] MEDS: BLOOD GLUCOSE MONITORING 1 DEV DEV FS SCH ×4 (06:49→20:45)
--- NOTE | 2017-07-31 07:20 | NUR ---
RECEIVED REPORT AT BEDSIDE BY [facility] NURSE. PATIENT IS APHASIC AND ASLEEP AT THIS TIME. PATIENT IS AROUSABLE AT THIS TIME. PATIENT IS TRACH TO VENT 28% FIO2. PATIENT ON CONTINUOUS PULSE OXIMETER MONITORING. PATIENT O2 SATURATION IS 100% AT THIS TIME. NO SIGNS AND SYMPTOMS OF DISTRESS NOTED. WEST CATHETER IS DRAINING CLEAR YELLOW URINE. G-TUBE IN PLACE AND HERNIA NOTED ON THE ABDOMEN. ABDOMINAL BINDER IN PLACE. NG TUBE ON LEFT NARES PLACED ON LOW-INTERMITTENT SUCTION. PT ON WOUND VAC FOR SACRAL WOUND. PT ON TELE MONITORING. BED LOWERED. WILL CONTINUE TO MONITOR PATIENT.
--- NOTE | 2017-07-31 07:21 | NUR ---
ENDORSED PLAN OF CARE TO AM NURSE. CONDITION STABLE.
[2017-07-31 08:00] VITALS: BP 121/60
[2017-07-31 08:16] LABS: HEMATOCRIT 29.1 % (36-48); HEMOGLOBIN 9.3 g/dL (12.0-16.0); MEAN CORPUSCULAR HEMOGLOBIN 28 pg (27-31); MEAN CORPUSCULAR HGB CONC 32 g/dL (33-37); MEAN CORPUSCULAR VOLUME 88 fL (80-94); PLATELET COUNT (AUTO) 396 K/uL (140-450); RED BLOOD CELL COUNT(AUTO) 3.33 MIL/uL (4.20-5.40); RED CELL DISTRIBUTION WIDTH 16.6 % (11.6-13.7); WHITE BLOOD COUNT (AUTO) 11.2 K/uL (4.8-10.8)
[2017-07-31 08:36] LABS: ANION GAP 12.3 (8-16); CARBON DIOXIDE 22.7 mmol/L (21-32); CREATININE 0.6 mg/dL (0.6-1.3)
--- NOTE | 2017-07-31 08:51 | NUR ---
VENT CHECK, NO SXN REQUIRED AT THIS TIME AIRWAY IS PATENT
[2017-07-31] MEDS ORDERED: LACTULOSE 20 GM/30 ML UDC NG SCH (09:30)
[2017-07-31] MEDS: PANTOPRAZOLE 40 MG INJ VIAL IVP SCH (09:58)
[2017-07-31 10:15] LABS: EOSINOPHILS % (MANUAL) 1 % (0-4); LYMPHOCYTES % (MANUAL) 19 % (20-46); MONOCYTES % (MANUAL) 1 % (5-12)
--- NOTE | 2017-07-31 10:30 | NUR ---
PATIENT HAD BM. STOOL LOOSE, WATERY, LIGHT BROWN AND MODERATED IN AMOUNT. PATIENT GIVEN BED BATH. PATIENT TURNED AND REPOSITIONED FOR COMFORT. WILL CONTINUE TO MONITOR
--- NOTE | 2017-07-31 10:40 | NUR ---
VENT CHECK, SXN PT SMALL AMT OF CREAM COLOR SECRETIONS, B\S ARE CLEAR AND PT IS RESTING
--- NOTE | 2017-07-31 11:23 | NUR ---
CLEANSED PATIENT, CHANGED GOWN, CHUCKS AND DRAWSHEET. REPOSITIONED PATIENT TOWARDS THE DOOR. PATIENT TOLERATED PROCEDURE WELL. PT SHOWS NO SIGNS OF RESPIRATORY DISTRESS. WILL CONTINUE TO MONITOR PATIENT.
[2017-07-31] MEDS: LACTOBACILLUS RHAMNOSUS GG 1 EACH CAP PO SCH (11:48)
[2017-07-31] MEDS: LISINOPRIL 10 MG TAB GT SCH (11:48)
[2017-07-31] MEDS: ASCORBIC ACID 500 MG TAB GT SCH (11:48)
[2017-07-31] MEDS: ASPIRIN 81 MG TAB.CHEW GT SCH ×2 (11:49→20:10)
[2017-07-31] MEDS: ZINC SULF 220 MG CAP GT SCH (11:49)
[2017-07-31] MEDS: DOCUSATE 100 MG/10 ML UDC GT SCH (11:49)
[2017-07-31] MEDS: GLYCOPYRROLATE 1 MG TAB GT SCH ×2 (11:49→20:09)
[2017-07-31] MEDS: FERROUS SULFATE 300 MG/5 ML UDC GT SCH (11:49)
[2017-07-31] MEDS: METHIMAZOLE 5 MG TAB GT SCH ×2 (11:49→20:10)
[2017-07-31 12:00] VITALS: BP 124/50
[2017-07-31] MEDS ORDERED: CLINDAMYCIN 600 MG/4 ML VIAL ONE (13:14)
--- NOTE | 2017-07-31 15:13 | NUR ---
vent check, no sxn required at this time, pt is resting with no signs of distress noted at this time
[2017-07-31 16:00] VITALS: BP 122/57
[2017-07-31] MEDS: THERAHONEY WOUND DRESSING TP SCH (16:00)
--- NOTE | 2017-07-31 17:04 | NUR ---
VENT CHECK, SXN PT SMALL AMT OF CREAM COLOR SECRETION, TRACH CARE DONE: CHANGED TRACH GAUZE AND PT IS RESTING WITH NO SIGNS OF DISTRESS NOTED AT THIS TIME
--- NOTE | 2017-07-31 19:30 | NUR ---
RECEIVED PT WITH EYES CLOSED, OPEN EYES TO TOUCH, APHASIC, WITH TRACH TO VENT, VITAL SIGNS STABLE, WITH LEFT NARES NGT ATTACHED TO LOW INTERMITTENT SUCTION WITH YELLOW GREEN DRAINAGE NOTED, G-TUBE CLAMPED, NO RESIDUAL NOTED, ABDOMINAL BINDER IN PLACED, WEST CATHETER IN PLACE DRAINING PALE YELLOW URINE, WITH WOUND VAC FROM SACRAL WOUND WITH SEROSANGUINEOUS DRAINAGE NOTED, IVF INFUSING WELL, MAINTAINED ON NPO EXCEPT MEDS, SAFETY MEASURES AND SEIZURE PRECAUTION IN PLACE, CALL LIGHT WITHIN REACH, WILL REPOSITION Q2H AND OFFLOAD PRESSURE AREAS.
--- NOTE | 2017-07-31 19:40 | NUR ---
PATIENT REPORT GIVEN AT BEDSIDE. PATIENT ENDORSED IN STABLE CONDITION
[2017-07-31 20:00] VITALS: BP 118/54
[2017-07-31] MEDS: ATORVASTATIN 20 MG TAB GT SCH (20:10)
[2017-07-31] MEDS: LACTULOSE 20 GM/30 ML UDC NG SCH (20:20)
--- NOTE | 2017-07-31 20:20 | NUR ---
BLOOD SUGAR CHECKED WITH 77 RESULT, DUE MEDS GIVEN THRU G-TUBE, INT SUCTION OF NGT STOPPED AT THIS TIME, IV ANTIBIOTIC ADMINISTERED, SUCTION SECRETION PRN, ALL NEEDS ANTICIPATED.
[2017-07-31] MEDS: LEVOFLOXACIN 750 MG/D5W PREMIX 150 ML IV SCH (20:24)
--- NOTE | 2017-07-31 22:00 | NUR ---
LOW INTERMITTENT SUCTION OF NGT RESUMED, MONITORED CLOSELY.
[2017-08-01] VITALS (12 sets, daily range): BP systolic 0–125; BP diastolic 0–58
--- NOTE | 2017-08-01 | NUR ---
PT SLEEPING, OPEN EYES TO TOUCH, VITAL SIGNS STABLE, NO DISTRESS NOTED, REPOSITIONED AND OFFLOAD PRESSURE AREAS, IVF INFUSING WELL, CONTINUE TO MONITOR CLOSELY.
[2017-08-01] MEDS: PHENYTOIN 100 MG/4 ML UDC GT SCH ×3 (04:10→20:52)
[2017-08-01] MEDS: CLINDAMYCIN 600 MG in DEXTROSE 5% 50 ML IV SCH (04:10)
--- NOTE | 2017-08-01 04:10 | NUR ---
PT SLEEPING, OPEN EYES TO TOUCH, VITAL SIGNS STABLE, FLACC-0, NO DISTRESS NOTED, NEW IV LINE INSERTED TO RT WRIST #24 WITH GOOD BLOOD RETURN, DUE IV ANTIBIOTIC ADMINISTERED, SUCTION SECRETIONS PRN, WOUND VAC IN PLACE DRAINING WELL, MONITORED CLOSELY.
--- NOTE | 2017-08-01 05:50 | NUR ---
BLOOD SUGAR CHECKED WITH 83 RESULT, 30ML WOUND VAC DRAINAGE NOTED, 50ML NGT OUTPUT NOTED, MONITORED CLOSELY.
[2017-08-01] MEDS: BLOOD GLUCOSE MONITORING 1 DEV DEV FS SCH ×4 (06:33→20:57)
[2017-08-01] MEDS: ALBUTEROL SULFATE/IPRATROPIU 3 ML SOL IH SCH ×3 (06:47→19:21)
--- NOTE | 2017-08-01 06:47 | NUR ---
RECEIVED ON A [employer] R860 VENTILATOR PLUGGED INTO RED OUTLET TOLERATING WELL WITHOUT ADVERSE REACTIONS NOTED TO A PORTEX DCT #7 AIRWAY SECURED WITH A CAITLIN TRACH TIE CUFF PRESSURE CHECKED NOTED AMBU BAG AT HOB LOC AWAKE SKIN TONE PINK BREATH SOUND DIFFUSED RHONCHI BILATERAL DEEP TRACHEAL SUCTION FOR SMALL THICK YELLOW SECRETIONS AIRWAY PATENT
--- NOTE | 2017-08-01 07:10 | NUR ---
PT SLEEPING, NO SIGNS OF DISTRESS, BEDSIDE REPORT GIVEN TO MINOR HAMMER FOR CONTINUITY OF CARE.
--- NOTE | 2017-08-01 07:10 | NUR ---
[facility] PATIENT IS APHASIC AND ASLEEP AT THIS TIME. PATIENT IS AROUSABLE AT THIS TIME. PATIENT IS TRACH TO VENT 28% FIO2. PATIENT ON CONTINUOUS PULSE OXIMETER MONITORING. PATIENT O2 SATURATION IS 100% AT THIS TIME. NO SIGNS AND SYMPTOMS OF DISTRESS NOTED. WEST CATHETER IS DRAINING CLEAR YELLOW URINE. G-TUBE IN PLACE AND HERNIA NOTED ON THE ABDOMEN. ABDOMINAL BINDER IN PLACE. NG TUBE ON LEFT NARES PLACED ON LOW-INTERMITTENT SUCTION. PT ON WOUND VAC FOR SACRAL WOUND. PT ON TELE MONITORING. BED LOWERED. WILL CONTINUE TO MONITOR PATIENT.
[2017-08-01 08:24] LABS: ANION GAP 12.5 (8-16); CARBON DIOXIDE 22.4 mmol/L (21-32); CREATININE 0.5 mg/dL (0.6-1.3)
[2017-08-01 08:34] LABS: POTASSIUM 2.9 mmol/L (3.5-5.1)
[2017-08-01] MEDS: LISINOPRIL 10 MG TAB GT SCH (08:38)
[2017-08-01] MEDS: LACTOBACILLUS RHAMNOSUS GG 1 EACH CAP PO SCH (08:39)
[2017-08-01] MEDS: ZINC SULF 220 MG CAP GT SCH (08:39)
[2017-08-01] MEDS: ASPIRIN 81 MG TAB.CHEW GT SCH ×2 (08:39→20:52)
[2017-08-01] MEDS: METHIMAZOLE 5 MG TAB GT SCH ×2 (08:39→20:52)
[2017-08-01] MEDS: ASCORBIC ACID 500 MG TAB GT SCH (08:40)
[2017-08-01] MEDS: PANTOPRAZOLE 40 MG INJ VIAL IVP SCH (08:40)
[2017-08-01] MEDS: GLYCOPYRROLATE 1 MG TAB GT SCH ×2 (08:40→20:52)
[2017-08-01] MEDS: FERROUS SULFATE 300 MG/5 ML UDC GT SCH (09:47)
[2017-08-01] MEDS: DOCUSATE 100 MG/10 ML UDC GT SCH (09:47)
[2017-08-01] MEDS: LACTULOSE 20 GM/30 ML UDC NG SCH (09:48)
--- NOTE | 2017-08-01 10:32 | NUR ---
AWAKE NO SOB NOTED BREATH SOUNDS CLEAR BILATERAL WITH GOOD CHEST RISE ELECTROCARDIOGRAPH TECHNICIAN AND RN AT BEDSIDE FOR PATIENT PHYSICAL HYGIENE AND REPOSITION
--- NOTE | 2017-08-01 11:04 | NUR ---
PATIENT HAD A LOOSE YELLOW BOWEL MOVEMENT. CLEANED PATIENT AND CHANGED GOWN. REPOSITIONED PATIENT ON LEFT LATERAL SIDE. PATIENT SHOWS NO SIGNS OF RESPIRATORY DISTRESS OR PAIN. PATIENT O2 SATURATION AT 98%. PATIENT TOLERATED WELL.
--- NOTE | 2017-08-01 11:05 | NUR ---
AWAKE NO APPARENT SOB NOTED BREATH SOUNDS RHONCHI BILATERAL GOOD CHEST RISE DEEP TRACHEAL SUCTION FOR LARGE THICK YELLOW SECRETIONS AIRWAY PATENT OROPHARYNX SUCTION FOR COPIOUS THICK YELLOW TO CLEAR SECRETIONS
[2017-08-01] MEDS ORDERED: KCL 20 MEQ/WATER INJ PREMIX 200 ML IV ONE (11:20)
[2017-08-01] MEDS ORDERED: TPN PER PHARMACY MC PRN (11:20)
[2017-08-01] MEDS: SIMETHICONE 80 MG TAB.CHEW PO SCH ×2 (12:47→19:12)
--- NOTE | 2017-08-01 12:56 | NUR ---
RESTING COMFORTABLY WITH NO APPARENT RESPIRATORY DISTRESS NOTED BREATH SOUNS DIFUSED RHONCHI BILATERAL GOOD CHEST RISE DEEP TRACHEAL SUCTION FOR SMALL THIN YELLOW SECRETIONS AIRWAY PATENT
[2017-08-01] MEDS ORDERED: ERYTHROMYCIN 250 MG TABEC PO SCH (13:00)
[2017-08-01] MEDS ORDERED: POTASSIUM CHLORIDE 20% 40 MEQ/15 ML UDC GT SCH (13:00)
[2017-08-01] MEDS ORDERED: FUROSEMIDE 20 MG/2 ML VIAL IVP SCH (13:00)
[2017-08-01 13:05] LABS: MAGNESIUM 1.6 mg/dL (1.8-2.4); PHOSPHORUS 2.9 mg/dL (2.5-4.9)
[2017-08-01] MEDS: DEXT 5% /NACL 0.9% 1,000 ML IV SCH (14:04)
[2017-08-01] MEDS ORDERED: MAG SULF 2000 MG/WATER PREMIX 100 ML IV SCH (15:00)
--- NOTE | 2017-08-01 15:50 | NUR ---
AWAKE NO SOB NOTED GOOD CHEST RISE
[2017-08-01] MEDS: THERAHONEY WOUND DRESSING TP SCH (16:00)
--- NOTE | 2017-08-01 16:45 | NUR ---
[facility]
--- NOTE | 2017-08-01 16:57 | NUR ---
AWAKE STABLE NO DISTRESS NOTED BREATH SOUNDS RHONCHI BILATERAL WITH GOOD CHEST RISE DEEP TRACHEAL SUCTION FOR MODERATE THIN YELLOW SECRETIONS AIRWAY PATENT
--- NOTE | 2017-08-01 19:35 | NUR ---
RECEIVED PT WITH EYES CLOSED, OPEN EYES TO TOUCH, APHASIC, WITH TRACH TO VENT, VITAL SIGNS STABLE, G-TUBE FEEDING OF FIBERSOURCE 20ML/H ON-GOING, 5 ML RESIDUAL NOTED, MAINTAIN HOB ELEVATED AT ALL TIMES, ABDOMINAL BINDER IN PLACED, WEST CATHETER IN PLACE DRAINING PALE YELLOW URINE, WITH WOUND VAC FROM SACRAL WOUND WITH SEROSANGUINEOUS DRAINAGE NOTED, K-RIDER INFUSING WELL, SAFETY MEASURES AND SEIZURE PRECAUTION IN PLACE, CALL LIGHT WITHIN REACH, WILL REPOSITION Q2H AND OFFLOAD PRESSURE AREAS.
--- NOTE | 2017-08-01 19:36 | NUR ---
PATIENT REPORT GIVEN AT BEDSIDE. PATIENT ENDORSED IN STABLE CONDITION
[2017-08-01] MEDS: ATORVASTATIN 20 MG TAB GT SCH (20:52)
--- NOTE | 2017-08-01 21:00 | NUR ---
BLOOD SUGAR CHECKED WITH 89 RESULT, DUE MEDS GIVEN THROUGH G-TUBE, SUCTION SECRETION PRN, REPOSITIONED AND OFFLOAD PRESSURE AREAS, ALL NEEDS ANTICIPATED.
[2017-08-01] MEDS ORDERED: MAG SULF 2000 MG/WATER PREMIX 100 ML IV ONE (22:04)
[2017-08-02] VITALS: BP 119/62
--- NOTE | 2017-08-02 | NUR ---
PT SLEEPING, OPEN EYES TO TOUCH, VITAL SIGNS STABLE, FLACC-0, REPOSITIONED AND OFFLOAD PRESSURE AREAS, MAG-RIDER INFUSING AT THIS TIME, CONTINUE TO MONITOR CLOSELY.
[2017-08-02 04:00] VITALS: BP 113/63
[2017-08-02] MEDS: PHENYTOIN 100 MG/4 ML UDC GT SCH (04:28)
--- NOTE | 2017-08-02 04:30 | NUR ---
VITAL SIGNS STABLE, AFEBRILE, FLACC-0, NO DISTRESS NOTED, ORAL CARE DONE, REPOSITIONED AND OFFLOAD PRESSURE AREAS, NO BM THE WHOLE SHIFT, WOUND VAC IN PLACE DRAINING SEROSANGUINEOUS FLUID, NO G-TUBE RESIDUAL NOTED, DUE DILANTIN GIVEN, MAINTAIN HOB ELEVATED AT ALL TIMES, MONITORED CLOSELY.
--- NOTE | 2017-08-02 06:00 | NUR ---
BLOOD SUGAR CHECKED WITH 100 RESULT, 30ML WOUND VAC DRAINAGE NOTED, G-TUBE FEEDING ON-GOING, TOLERATING WELL, MONITORED CLOSELY.
[2017-08-02] MEDS: BLOOD GLUCOSE MONITORING 1 DEV DEV FS SCH ×2 (06:31→11:13)
[2017-08-02] MEDS: ALBUTEROL SULFATE/IPRATROPIU 3 ML SOL IH SCH ×2 (07:10→11:29)
--- NOTE | 2017-08-02 07:19 | NUR ---
RECEIVED TRACH PT WITH A PORTEX 7 ON VENT. SETTINGS AC 14, VT 450, PEEP 5 AND FIO2 28%. SUCTIONED PT AND OBTAINED SMALL AMOUNT OF THIN WHITE SECRETIONS, AIRWAY IS PATENT AND TRACH IS SECURE. VENT IS PLUGGED INTO RED OUTLET WITH ALARMS ON AND FUNCTIONING. PT IS NOT IN RESPIRATORY DISTRESS AT THIS TIME. WILL CONTINUE TO MONITOR.
--- NOTE | 2017-08-02 07:20 | NUR ---
PT SLEEPING, NO SIGNS OF DISTRESS, BEDSIDE REPORT GIVEN TO RN LAM FOR CONTINUITY OF CARE.
--- NOTE | 2017-08-02 07:36 | NUR ---
RECEIVED REPORT FROM SERGIO GAXIOLA FOR CONTINUITY OF CARE. PATIENT TRACH TO VENT NO S/S OF RESP DISTRESS NOTED ,NON-VERBAL OPEN HER EYES FOR VOICES, F/C DRAIN CLEAR YELLOW URINE . IV SITE LT FA GA24 INTACT AND PATENT IVF TO TKO. WOUND VAC TO SUCTION MINIMAL DRAINAGE. G-TUBE FEEDING WITH FIBERSOURCE RUNNING AT 20ML/HR ,WILL CHECK RESIDUAL, WILL REPOSITION Q 2 HRS . PLAN OF CARE DISCUSSED WITH THE PATIENT VITALS STABLE WILL CONTINUE TO MONITOR.
[2017-08-02 08:00] VITALS: BP 109/59
[2017-08-02] MEDS: DOCUSATE 100 MG/10 ML UDC GT SCH (08:57)
[2017-08-02] MEDS: FERROUS SULFATE 300 MG/5 ML UDC GT SCH (08:57)
[2017-08-02] MEDS: METHIMAZOLE 5 MG TAB GT SCH (08:57)
[2017-08-02] MEDS: ZINC SULF 220 MG CAP GT SCH (08:57)
[2017-08-02] MEDS: ASPIRIN 81 MG TAB.CHEW GT SCH (08:57)
[2017-08-02] MEDS: ASCORBIC ACID 500 MG TAB GT SCH (08:58)
[2017-08-02] MEDS: SIMETHICONE 80 MG TAB.CHEW PO SCH (08:59)
[2017-08-02] MEDS: PANTOPRAZOLE 40 MG INJ VIAL IVP SCH (08:59)
[2017-08-02] MEDS: LACTOBACILLUS RHAMNOSUS GG 1 EACH CAP PO SCH (08:59)
[2017-08-02] MEDS: LISINOPRIL 10 MG TAB GT SCH (09:00)
[2017-08-02] MEDS ORDERED: SENNA 8.6 MG TAB PO SCH (09:00)
[2017-08-02] MEDS ORDERED: POTASSIUM CHLORIDE 20% 40 MEQ/15 ML UDC GT SCH (09:00)
[2017-08-02] MEDS: GLYCOPYRROLATE 1 MG TAB GT SCH (09:00)
--- NOTE | 2017-08-02 09:00 | NUR ---
DUE MEDS GIVEN THROUGH G-TUBE TOLERATED WELL CHECKED RESIDUAL FOR FEEDING IT IS ONLY 10 ML CONTINUE FEEDING AT THIS TIME.
--- NOTE | 2017-08-02 10:41 | NUR ---
CM NOTE PER ABEBA OF [facility] PH# [phone], PATIENT CAN GO BACK ANYTIME TODAY TO [facility] UNDER DR. Telly OLMSTEAD, NUMBER TO CALL FOR REPORT [phone]. NURSE LAM MORAN.
--- NOTE | 2017-08-02 11:14 | NUR ---
CHECKED BLOOD SUGAR 94 NO COVERAGE NEEDED , REPORT GIVEN TO MARY RN AT [facility]. REMOVED WOUND VAC NEW DRESSING WITH WET TO DRY.
[2017-08-02 11:22] LABS: ANION GAP 8.9 (8-16); CARBON DIOXIDE 25.9 mmol/L (21-32); CREATININE 0.5 mg/dL (0.6-1.3); POTASSIUM 3.8 mmol/L (3.5-5.1)
--- NOTE | 2017-08-02 12:13 | NUR ---
ENDORSE THE CARE TO THA GAXIOLA
--- NOTE | 2017-08-02 12:14 | NUR ---
RECEIVED REPORT FROM MINOR FRITZ. SHE IS READY FOR D/C BACK TO [facility]. [facility] TO ARRIVE IN AN HOUR. CALLED FAMILY. NOTIFIED ALBERT, SON THAT PT IS BEING TRANSFERRED BACK TO HER FACILITY. SON VERBALIZED UNDERSTANDING. PICTURE TAKEN, PRINTED AND INSERTED TO CHART. WILL CONTINUE TO MONITOR PT.
--- NOTE | 2017-08-02 12:30 | NUR ---
[facility] HERE, GAVE REPORT TO TRANSPORTERS. GAVE MR TO [facility]. CALLED JENNIFFER PRIEST AT [facility] [place] NOTIFIED HER OF ETA. PT IN STABLE CONDITION. R/T HERE TO ASSIST.
--- NOTE | 2017-08-02 12:48 | NUR ---
[facility] TAKING PT BACK TO [facility]. PT IN STABLE CONDITION.
== END 2017-08-02 12:48 | DRG 130 ==
LOC: MED 15:34 → MIC 18:41 → MTU 07-30 19:25
PROVIDERS: ADMIT Family Medicine Sports Medicine; ATTEND Family Medicine Sports Medicine
PROC: 5A1955Z Respiratory Ventilation, Greater than 96 Consecutive Hours (ICD-10-PCS; principal; 2017-07-29)
PROC: 5A1935Z Respiratory Ventilation, Less than 24 Consecutive Hours (ICD-10-PCS; 2017-07-29)
DX: J96.20 Acute and chronic respiratory failure, unspecified whether with hypoxia or hypercapnia (principal); J69.0 Pneumonitis due to inhalation of food and vomit; E43 Unspecified severe protein-calorie malnutrition; L89.154 Pressure ulcer of sacral region, stage 4; G91.0 Communicating hydrocephalus; D68.59 Other primary thrombophilia; I42.9 Cardiomyopathy, unspecified; Z99.11 Dependence on respirator [ventilator] status; K72.90 Hepatic failure, unspecified without coma; Z93.0 Tracheostomy status; K22.10 Ulcer of esophagus without bleeding; F03.90 Unspecified dementia, unspecified severity, without behavioral disturbance, psychotic disturbance, mood disturbance, and anxiety; J44.9 Chronic obstructive pulmonary disease, unspecified; K56.7 Ileus, unspecified; N39.0 Urinary tract infection, site not specified; E05.90 Thyrotoxicosis, unspecified without thyrotoxic crisis or storm; B96.5 Pseudomonas (aeruginosa) (mallei) (pseudomallei) as the cause of diseases classified elsewhere; B96.89 Other specified bacterial agents as the cause of diseases classified elsewhere; K21.9 Gastro-esophageal reflux disease without esophagitis; D63.8 Anemia in other chronic diseases classified elsewhere; I12.9 Hypertensive chronic kidney disease with stage 1 through stage 4 chronic kidney disease, or unspecified chronic kidney disease; N18.9 Chronic kidney disease, unspecified; E11.22 Type 2 diabetes mellitus with diabetic chronic kidney disease; M62.58 Muscle wasting and atrophy, not elsewhere classified, other site; K74.60 Unspecified cirrhosis of liver; E11.51 Type 2 diabetes mellitus with diabetic peripheral angiopathy without gangrene; K43.9 Ventral hernia without obstruction or gangrene; G40.909 Epilepsy, unspecified, not intractable, without status epilepticus; E87.6 Hypokalemia; K63.89 Other specified diseases of intestine; E66.9 Obesity, unspecified; K59.00 Constipation, unspecified; I35.0 Nonrheumatic aortic (valve) stenosis; J40 Bronchitis, not specified as acute or chronic; Z88.0 Allergy status to penicillin; Z88.8 Allergy status to other drugs, medicaments and biological substances; Z79.899 Other long term (current) drug therapy; Z68.24 Body mass index [BMI] 24.0-24.9, adult; Z98.2 Presence of cerebrospinal fluid drainage device; Z86.73 Personal history of transient ischemic attack (TIA), and cerebral infarction without residual deficits; Z87.01 Personal history of pneumonia (recurrent)
CPT/HCPCS: 36415; 36600; 71045; 74250; 80048; 80053; 80185; 81001; 82140; 82150; 82550; 82553; 82803; 82948; 83036; 83605; 83690; 83735; 83880; 84100; 84436; 84439; 84443; 84479; 84484; 85025; 85610; 85730; 86886; 86900; 86901; 87040; 87070; 87081; 87086; 87205; 93005; 94003; 94640; 99285; C9113; J0456; J1815; J1940; J1956; J3475; J3480; J3490; J7030; J7042; J7060; J7620; J8597

== ENCOUNTER 2018-02-20 17:33 | Emergency (ER) | payer MEDICAID ==
[~2018-02-20] VITALS: Ht 160 cm; Wt 74.8 kg
[~2018-02-20 17:33] MED LIST changes: -ACET-1182 PO; +ACET-2619 GT; +ASPI81CT89 GT; -ASPI81CT95 PO; -ATOR20TA40 PO; +ATOR40TA GT; +BISA-213 RC; -BISA10SU46 RC; -BLOO1STR56 FS; +COL100L GT; -COL100L PO; +CRAN450C GT; -D50SYR IVP; -DIL100I IVP; +DOCU-299 PO; +ESOM40EC GT; -FER300L GT; +FERR75LI22 GT; -Foam Dressing TP; -HUMSLIDE SUBQ; -Hydraguard TP; -IPRA3AMP IH; -LANS30EC68 GT; +MAGN400S60 PO; +METO5SOL19 GT; -METO5SOL20 GT; +MULT-2246 GT; -MULT1SGL58 GT; +NA P133E RC; -NYSTRC TP; -ONDA2SOL45 IM/IVP; +ONDA4TAB GT; -PANT40PD7 IVP; +PHEN125S GT; -THIA-8 GT; -ZGUARD TP; -ZIN220 GT; +ZINC220C12 GT; -[UNRECOGNIZED DRUG - CODE] GT; -[UNRECOGNIZED DRUG - CODE] GT
--- NOTE | 2018-02-20 17:36 | NUR ---
PT BIBA ALS TO BED 10
--- NOTE | 2018-02-20 17:36 | NUR ---
62Y/F BIBA FROM [facility] FOR ABNORMAL LABS. PT SKIN IS INTACT, PINK/WARM/DRY; AAOX2; LUNGS CLEAR BL; HR EVEN AND REGULAR; NO FEVER AT THIS TIME, VSS; PATIENT POSITIONED FOR COMFORT; HOB ELEVATED; BEDRAILS UP X1; BED DOWN. ER MD MADE AWARE OF PT STATUS.
--- NOTE | 2018-02-20 17:38 | NUR ---
vent settings fio2 - 29 peep - 5 peak pressure - 29 min volume - 4.4 tidal volume - 340 resp rate - 13
--- NOTE | 2018-02-20 17:38 | NUR ---
Patient being evaluated by physician at bedside.
[2018-02-20 17:45] VITALS: BP 111/67
--- NOTE | 2018-02-20 17:55 | NUR ---
LAB AT BEDSIDE
[2018-02-20 18:03] LABS: BASOPHILS % (AUTO) 0.4 % (0.0-2.0); EOSINOPHILS # (AUTO) 0.4 K/uL (0-0.4); EOSINOPHILS % (AUTO) 3.8 % (0.0-4.0); HEMATOCRIT 35.9 % (36-48); HEMOGLOBIN 11.7 g/dL (12.0-16.0); LYMPHOCYTES # (AUTO) 2.3 K/uL (2.5-16.5); LYMPHOCYTES % (AUTO) 22.9 % (20.5-51.1); MEAN CORPUSCULAR HEMOGLOBIN 30 pg (27-31); MEAN CORPUSCULAR HGB CONC 33 g/dL (33-37); MEAN CORPUSCULAR VOLUME 92.5 fL (80-94); MONOCYTES # (AUTO) 0.8 K/uL (0.8-1.0); MONOCYTES % (AUTO) 7.9 % (1.7-9.3); NEUTROPHILS # (AUTO) 6.4 K/uL (1.8-7.7); PLATELET COUNT (AUTO) 314 K/uL (140-450); RED BLOOD CELL COUNT(AUTO) 3.88 MIL/uL (4.20-5.40); RED CELL DISTRIBUTION WIDTH 14.2 % (11.6-13.7); WHITE BLOOD COUNT (AUTO) 9.8 K/uL (4.8-10.8)
[2018-02-20 18:21] LABS: PROTHROMBIN TIME 10.9 secs (10.8-13.4)
[2018-02-20 18:23] LABS: ANION GAP 7.9 (8-16); CARBON DIOXIDE 31.2 mmol/L (21-32); CREATININE 0.7 mg/dL (0.6-1.3); POTASSIUM 3.1 mmol/L (3.5-5.1); TOTAL BILIRUBIN 0.2 mg/dL (0.0-1.0)
[2018-02-20] MEDS ORDERED: KCL 20 MEQ/WATER INJ PREMIX 100 ML IV ONE (18:55)
[2018-02-20 19:28] VITALS: BP 110/68
[2018-02-20] MEDS ORDERED: POTASSIUM CHLORIDE 10 MEQ TABER PO ONE ×2 (19:43→19:45)
[2018-02-20] MEDS ORDERED: POTASSIUM CHLORIDE 20% 40 MEQ/15 ML UDC ONE (19:50)
[2018-02-20] MEDS ORDERED: POTASSIUM CHLORIDE 20% 40 MEQ/15 ML UDC PO ONE (20:05)
--- NOTE | 2018-02-20 20:17 | NUR ---
GAVE REPORT TO MINOR PEACE AT [facility]. [facility] SHAPER SET UP OPERATOR TIME 30 ETA TO [place]
[2018-02-20 21:10] VITALS: BP 106/53
--- NOTE | 2018-02-20 21:10 | NUR ---
Patient discharged with v/s stable. Written and verbal after care instructions given and explained IN REPORT TO [facility] NURSE. Patient verbalized understanding. [facility]ulance Transport to [facility]. All questions addressed prior to discharge.
--- NOTE | 2018-02-20 21:22 | NUR ---
PT TAKEN BY [facility] TO [facility]
== END 2018-02-20 21:10 | disposition home or self-care (01) ==
LOC: MED 17:33
DX: E87.6 Hypokalemia (principal); J44.9 Chronic obstructive pulmonary disease, unspecified; E11.9 Type 2 diabetes mellitus without complications; K21.9 Gastro-esophageal reflux disease without esophagitis; N28.9 Disorder of kidney and ureter, unspecified; I10 Essential (primary) hypertension; F03.90 Unspecified dementia, unspecified severity, without behavioral disturbance, psychotic disturbance, mood disturbance, and anxiety; Z88.0 Allergy status to penicillin; Z88.8 Allergy status to other drugs, medicaments and biological substances; E07.9 Disorder of thyroid, unspecified; Z79.82 Long term (current) use of aspirin; Z86.73 Personal history of transient ischemic attack (TIA), and cerebral infarction without residual deficits
CPT/HCPCS: 36415; 71045; 80053; 83735; 83880; 84484; 85025; 85610; 85730; 93005; 99285; J3480

== ENCOUNTER 2018-03-25 21:27 | Inpatient (IN) | payer MEDICAID ==
[~2018-03-25] VITALS: Ht 157.5 cm; Wt 64.4 kg
--- NOTE | 2018-03-25 21:27 | NUR ---
Patient BIBA ACLS from [facility], transferred to bed 6. RN and RT evaluating patient at bedside.
[2018-03-25 21:30] VITALS: BP 111/66
[2018-03-25] MEDS ORDERED: NACL 0.9% 1,000 ML IV ONE (21:35)
--- NOTE | 2018-03-25 21:35 | NUR ---
pt reynaldo from [facility]. c/o g-tube malfunction. rn from [facility] stated that she was having dark colored discharge from the g tube. and their wanted to her seen at the er. pt has a stoma ventilation and a jauregui cath. skin intact. pt is non verbal. upon assessment, g tube was full of brown discharge. stomach is distended. pt is on fall precaution due to fall risk. ; PATIENT STATES PAIN OF 0/10 using flacc scale. AT THIS TIME; VSS; PATIENT POSITIONED FOR COMFORT; HOB ELEVATED; BEDRAILS UP X2; BED DOWN. ER MD MADE AWARE OF PT STATUS.
--- NOTE | 2018-03-25 21:38 | NUR ---
fall precaution/safety implemented. fall risk bracelet palced on pt wrist. 2 rails pulled up. pt tolerated well. md notified/
--- NOTE | 2018-03-25 21:40 | NUR ---
Dr. Ashraf evaluating patient at bedside.
--- NOTE | 2018-03-25 21:45 | NUR ---
g tube placed by md at bedside. cleaned and intact. gauze in palce. pt tolerated well. waiting for x ray to comfirm placement.
[2018-03-25] MEDS ORDERED: ACET-2858 GT (22:00)
[2018-03-25] MEDS ORDERED: KEP500L GT (22:23)
[2018-03-25 22:26] LABS: BASOPHILS # (AUTO) 0.1 K/uL (0.00-0.22); BASOPHILS % (AUTO) 0.4 % (0.0-2.0); EOSINOPHILS # (AUTO) 0.4 K/uL (0-0.4); EOSINOPHILS % (AUTO) 2.7 % (0.0-4.0); HEMATOCRIT 38.8 % (36-48); HEMOGLOBIN 13.1 g/dL (12.0-16.0); LYMPHOCYTES # (AUTO) 2.5 K/uL (2.5-16.5); LYMPHOCYTES % (AUTO) 16.4 % (20.5-51.1); MEAN CORPUSCULAR HEMOGLOBIN 31 pg (27-31); MEAN CORPUSCULAR HGB CONC 34 g/dL (33-37); MEAN CORPUSCULAR VOLUME 90.5 fL (80-94); MONOCYTES # (AUTO) 0.9 K/uL (0.8-1.0); MONOCYTES % (AUTO) 5.9 % (1.7-9.3); NEUTROPHILS # (AUTO) 11.5 K/uL (1.8-7.7); NEUTROPHILS % (AUTO) 74.6 % (42.2-75.2); PLATELET COUNT (AUTO) 304 K/uL (140-450); RED BLOOD CELL COUNT(AUTO) 4.28 MIL/uL (4.20-5.40); RED CELL DISTRIBUTION WIDTH 14.9 % (11.6-13.7)
[2018-03-25 22:27] LABS: APPEARANCE,URINE CLOUDY (CLEAR); BILIRUBIN,URINE NEGATIVE (NEGATIVE); BLOOD, URINE 1+ (NEGATIVE); COLOR,URINE YELLOW (YELLOW); LEUKOCYTE ESTERASE ,URINE 1+ (NEGATIVE); NITRITE, URINE NEGATIVE (NEGATIVE); PH,URINE 8.5 (5.0-9.0); UGLUCOSE NEGATIVE (NEGATIVE)
[2018-03-25 22:43] LABS: ALBUMIN 2.2 g/dL (3.4-5.0); CARBON DIOXIDE 37.4 mmol/L (21-32); CREATININE 0.7 mg/dL (0.6-1.3); TOTAL BILIRUBIN 0.2 mg/dL (0.0-1.0); WHITE BLOOD COUNT (AUTO) 15.4 K/uL (4.8-10.8)
[2018-03-25 22:46] LABS: PROTHROMBIN TIME 10.8 secs (10.8-13.4)
--- NOTE | 2018-03-25 22:46 | NUR ---
electrical engineering technician at bedside.
[2018-03-25 22:50] LABS: POTASSIUM 2.4 mmol/L (3.5-5.1)
[2018-03-25] MEDS ORDERED: POTASSIUM CHLORIDE 20% 40 MEQ/15 ML UDC PO ONE (22:50)
[2018-03-25] MEDS ORDERED: LEVOFLOXACIN 500 MG/D5W PREMIX 100 ML IV ONE (23:20)
[2018-03-25 23:26] VITALS: BP 107/65
--- NOTE | 2018-03-25 23:30 | NUR ---
pt is resting in bed. pt vitals stable.
[2018-03-25 23:59] LABS: RBC,URINE 0-5 (RARE) /HPF (0-5); TRIPLE PHOSPHATE CRYSTAL,UR 0-10 /HPF (None Seen); WBC,URINE 20-60 /HPF (0-5)
[2018-03-26] MEDS ORDERED: ACETAMINOPHEN 325 MG TAB PO PRN (00:15)
[2018-03-26] MEDS ORDERED: HYDROcodone/APAP 7.5/325 MG 1 TAB PO PRN (00:15)
[2018-03-26] MEDS ORDERED: ONDANSETRON 4 MG/2 ML VIAL IVP PRN (00:15)
[2018-03-26] MEDS ORDERED: BACTRIM IV PER PHARMACY MC PRN (00:25)
--- NOTE | 2018-03-26 00:57 | NUR ---
pt lying in bed. vitals stable.
[2018-03-26] MEDS ORDERED: NACL 0.9% 1,000 ML IV SCH (01:30)
[2018-03-26 01:35] VITALS: BP 91/48
[2018-03-26 01:35] LABS: FREE T4 (FREE THYROXINE) 0.72 ng/dL (0.76-1.46); MAGNESIUM 2.6 mg/dL (1.8-2.4); PHOSPHORUS 3.7 mg/dL (2.5-4.9); THYROID STIMULATING HORMONE 5.1 uIU/mL (0.34-3.74)
--- NOTE | 2018-03-26 01:35 | NUR ---
PATIENT TRANSFERRED TO ROOM 125B VIA AMBU BAG ON 10LPM OXYGEN. PT PLACED BACK ON CURRENT VENTILATOR SETTING AC-12,500, 30% AND PEEP+5 RR-14 SAO2-98%
--- NOTE | 2018-03-26 01:35 | NUR ---
PT BROUGHT UP TO [facility] UNIT VIA [facility] ESCORTED BY 2 RN'S ZAYDA PROBATION COUNSELORDYE STAND LOADER ER NURSE GAVE REPORT AT BEDSIDE, PT TRANSFERRED FROM [facility] TO [facility]. PT IS A TOTAL CARE AOX1 AND, PT ON VENT, RT AT BEDSIDE. RT SET UP PT ON VENT SETTINGS FIO2 30 VCT IS 500 RESP 12 PEEP 5. PT WAS CHANGED TURNED AND REPOSITIONED. PT HAS A STAGE 4 SACRAL WOUND WITH MEASUREMENTS OF 4X4X2 DEPTH.
--- NOTE | 2018-03-26 01:35 | NUR ---
Patient will be admitted to care of DR. OLMSTEAD. Admited to TELEMETRY. Will go to room 124 B. Belongings list completed. Report to HILL GAXIOLA . PT VITALS STABLE
--- NOTE | 2018-03-26 01:35 | NUR ---
Pt report given to HILL GAXIOLAKIDS ACTIVITIES COACH. Transfer of care at this time. PT VITALS STABLE.
--- NOTE | 2018-03-26 02:00 | NUR ---
PT CONTINUES WITH LARGE LOOSE STOOL, X 2 BLOOD OCCULT TEST PENDING. DR BUTTS ORDERED A REPLACEMENT OF WEST CATHETER AND RECTAL BAG TO KEEP WOUND CLEAN AND DRY.
[2018-03-26] MEDS ORDERED: LACT10SO1 PO (02:20)
[2018-03-26] MEDS ORDERED: PHEN125S GT (02:20)
[2018-03-26] MEDS ORDERED: FERR75LI22 GT (02:20)
[2018-03-26] MEDS ORDERED: CHLO1SOL1 ×2 (02:20→02:21)
[2018-03-26] MEDS ORDERED: VITC500 GT (02:20)
[2018-03-26] MEDS ORDERED: METO5SOL19 GT (02:20)
[2018-03-26] MEDS ORDERED: SODIUM PHOSPHATE 118 ML ENEM RC PRN (02:25)
[2018-03-26] MEDS ORDERED: BISACODYL 10 MG SUPP RC PRN (02:25)
[2018-03-26] MEDS ORDERED: MAGNESIUM HYDROXIDE 2400 MG/30 ML UDC GT PRN (02:25)
--- NOTE | 2018-03-26 02:30 | NUR ---
WEST CATHETER AND RECTAL TUBE INSERTED, PT WAS TURNED AND GT WAS NOTED TO BE OUT. GT TIP CAME OUT AND WAS REINSERTED. SOME DARK DISCHARGE NOTED FORM GT OPENING. GT PLACEMENT SOUNDS FAINT AT BEST, X RAY ORDERED FOR PLACEMENT. Addendum: 03/26/18 at 0559 by Keiko Jaquez RN DR BUTTS AWARE OF PT REINSERTED G-TUBE ABD DARK DRAINAGE.
[2018-03-26] MEDS ORDERED: TRIMETH IV SCH (03:00)
[2018-03-26] MEDS ORDERED: DEXTROSE 5% IV SCH (03:00)
[2018-03-26] MEDS ORDERED: SULFAMETH IV SCH (03:00)
[2018-03-26] MEDS ORDERED: INSULIN LISPRO SLIDING SCALE 100 UNITS/ML VIAL SUBQ PRN (03:15)
[2018-03-26] MEDS ORDERED: DEXTROSE 50% 50 ML SYR IVP PRN (03:15)
[2018-03-26] MEDS ORDERED: KCL 20 MEQ/WATER INJ PREMIX 200 ML IV SCH ×2 (04:00→21:00)
--- NOTE | 2018-03-26 04:45 | NUR ---
CRITICAL FINDINGS WERE REPORTED TO AT 0430. AFTER RECEIVING RESULTS FOR XR OF ABDOMEN TO CONFIRM TUBE PLACEMENT. CRITICAL FINDINGS WERE GAS-FILLED BOWEL, WITH APPERANCE OF RAISING THE POSSIBILITY OF SIGMOID VOLVULUS. FINDINGS REPORTED TO DR. BUTTS.
[2018-03-26] MEDS: METOCLOPRAMIDE 10 MG/10 ML SYRP UDC GT SCH ×3 (05:00→20:59)
[2018-03-26] MEDS ORDERED: NON-FORMULARY ITEM (Lactulose 20 GM) PO SCH (05:00)
[2018-03-26] MEDS ORDERED: PHENYTOIN 50 MG GT SCH (05:00)
[2018-03-26] MEDS ORDERED: SULFAMETH/TRIMETH 80/16MG-ML 10 ML VIAL IV ONE (05:02)
--- NOTE | 2018-03-26 05:43 | NUR ---
PT BROUGHT DOWN TO CT FOR CT OF ABDOMEN AND PELVIS WITHOUT CONTRAST TO RULE OUT POSSIBLE SIGMOID VOLVULUS DUE TO CRITICAL FINDINGS OF AP SUPINE AND LPO ABDOMEN, PT ESCORTED BY RT, RN AND 2 LINE TESTER'S .
--- NOTE | 2018-03-26 06:02 | NUR ---
PT RETUNED FROM CT SCAN.
--- NOTE | 2018-03-26 06:54 | NUR ---
REC'D PT ON [place] VENT SETTINGS AC12 VT 500 PEEP 5 FIO2 30% ALARMS ON AND AUDIBLE AND AMBU BAG AT SIDE OF VENT AND VENT IS PLUGGED INTO RED OUTLET, SXN PT MODERATE AMT OF THIN YELLOW SECRETIONS B\S ARE COARSE BILATERALLY, PT IS TRACH WITH PORTEX 7 AND SKIN INTEGRITY IS INTACT PT IS RESTING WITH NO SIGNS OF DISTRESS NOTED AT THIS TIME
[2018-03-26] MEDS: BLOOD GLUCOSE MONITORING 1 DEV DEV FS SCH ×4 (07:04→21:09)
--- NOTE | 2018-03-26 07:24 | NUR ---
ENDORSED TO DAYSHIFT NURSE.
--- NOTE | 2018-03-26 07:26 | NUR ---
RECEIVED REPORT FROM OIL REFINERY PROCESS TECHNICIAN RN. PT RESTING IN BED. RESPONSE TO STIMULI. SATURATING 95%. SKIN DRY AND WARM TO TOUCH. ON TRACH TO VENT AC 12 FIO2 30% TV 500 PEEP 5. LUNGS WHEEZES ON AUSCULTATION. BULGING ABDOMEN NOTED. G-TUBE NOTED IN LUQ. NO BOWEL SOUND HEARD. PERIPHERAL LINE NOTED ON LEFT HAND 22G. BACTRIM RUNNING AT PERIPHERAL LINE. LINE INTACT. NS RUNNING AT 100 ML/HR. OPT ON WEST CATHETER DRAINING YELLOW URINE VIA GRAVITY. ON RECTAL TUBE DRAINING LOOSE STOOL IN BAG. SACRAL WOUND STAGE IV ON BACK. WILL FOLLOW UP WITH WOUND NURSE. SCD ON BLE. FLACC 0. YELLOW SOCKS ON. KEPT HOB ELEVATED. BED IN LOW POSITION LOCKED. WILL CONTINUE TO MONITOR.
[2018-03-26 07:36] LABS: BASOPHILS # (AUTO) 0.1 K/uL (0.00-0.22); BASOPHILS % (AUTO) 0.5 % (0.0-2.0); EOSINOPHILS # (AUTO) 0.4 K/uL (0-0.4); EOSINOPHILS % (AUTO) 3.3 % (0.0-4.0); HEMATOCRIT 34.1 % (36-48); HEMOGLOBIN 11.4 g/dL (12.0-16.0); LYMPHOCYTES # (AUTO) 2.3 K/uL (2.5-16.5); LYMPHOCYTES % (AUTO) 17.3 % (20.5-51.1); MEAN CORPUSCULAR HEMOGLOBIN 31 pg (27-31); MEAN CORPUSCULAR HGB CONC 34 g/dL (33-37); MEAN CORPUSCULAR VOLUME 91.7 fL (80-94); MONOCYTES # (AUTO) 0.8 K/uL (0.8-1.0); MONOCYTES % (AUTO) 6.2 % (1.7-9.3); NEUTROPHILS # (AUTO) 9.5 K/uL (1.8-7.7); NEUTROPHILS % (AUTO) 72.7 % (42.2-75.2); PLATELET COUNT (AUTO) 299 K/uL (140-450); RED BLOOD CELL COUNT(AUTO) 3.72 MIL/uL (4.20-5.40); RED CELL DISTRIBUTION WIDTH 14.8 % (11.6-13.7); WHITE BLOOD COUNT (AUTO) 13.1 K/uL (4.8-10.8)
[2018-03-26 07:54] LABS: ANION GAP 8.7 (8-16); CARBON DIOXIDE 32.4 mmol/L (21-32); CREATININE 0.6 mg/dL (0.6-1.3); POTASSIUM 3.1 mmol/L (3.5-5.1)
[2018-03-26 08:00] VITALS: BP 99/54
[2018-03-26 08:00] LABS: CHOL/HDL RATIO 1.8 (1-4.5); MAGNESIUM 2.5 mg/dL (1.8-2.4); PHOSPHORUS 3.1 mg/dL (2.5-4.9)
[2018-03-26] MEDS: DEXT 5% / NACL 0.9% 500 ML IV SCH ×2 (08:15→09:03)
[2018-03-26] MEDS: DOCUSATE 100 MG/10 ML UDC PO SCH ×2 (09:00→21:00)
[2018-03-26] MEDS: GLYCOPYRROLATE 1 MG TAB GT SCH ×2 (09:00→21:00)
[2018-03-26] MEDS ORDERED: NON-FORMULARY ITEM (Cranberry Fruit Concentrate (Cranberry) 450 MG) GT SCH (09:00)
[2018-03-26] MEDS: FAMOTIDINE 20 MG TAB GT SCH (09:00)
[2018-03-26] MEDS: levETIRAcetam 100 MG/ML ORASYR GT SCH ×2 (09:00→20:57)
[2018-03-26] MEDS: MULTIVITAMIN/MINERALS 15 ML UDBTL GT SCH (09:00)
[2018-03-26] MEDS: LISINOPRIL 10 MG TAB GT SCH (09:00)
[2018-03-26] MEDS: ASCORBIC ACID 500 MG/5 ML ORASYR GT SCH ×2 (09:00→21:04)
[2018-03-26] MEDS ORDERED: MULTIVITAMIN WITH MINERALS GT SCH (09:00)
[2018-03-26] MEDS: FERROUS SULFATE 300 MG/5 ML UDC GT SCH (09:00)
[2018-03-26] MEDS: LACTOBACILLUS RHAMNOSUS GG 1 EACH CAP GT SCH (09:00)
[2018-03-26] MEDS: METHIMAZOLE 5 MG TAB GT SCH ×2 (09:00→21:02)
[2018-03-26] MEDS ORDERED: CHLORHEXIDINE GLUCONATE SCH (09:00)
--- NOTE | 2018-03-26 09:12 | NUR ---
vent check, no sxn needed airway is patent pt is getting cleaned wound care nurse at bedside
--- NOTE | 2018-03-26 09:12 | NUR ---
PT WAS ADMITTED FOR G-TUBE MALFUNCTION. WAITING FOR GI DOCTOR TO SEE THE PT. UNABLE TO PROVIDE G-TUBE MEDICINES. DR. ORTIZ MADE AWARE. SAID OK.
--- NOTE | 2018-03-26 09:24 | NUR ---
KEPT PT CLEAN AND DRY. MORNING CARE PROVIDED.
--- NOTE | 2018-03-26 09:49 | NUR ---
PATIENT HAS BEEN SCREENED AND CATEGORIZED HIGH NUTRITION RISK. PATIENT WILL BE SEEN WITHIN 1-2 DAYS OF ADMISSION. 03/26/18 03/27/[address]
[2018-03-26] MEDS: DEXT 5% /NACL 0.9% 1,000 ML IV SCH ×2 (10:04→20:04)
--- NOTE | 2018-03-26 10:19 | NUR ---
WOUND CARE EVALUATION NOTES: REASON FOR EVALUATION: SACROCOCCYX ULCER COMPLETE SKIN ASSESSMENT DONE WITH PRIMARY RN ON THIS 62 Y/O FEMALE PATIENT FROM [facility], WITH DISTENDED ABDOMEN AND BLACK DRAINAGE ON GT SITE. PAST MEDICAL HISTORY INCLUDE CVA WITH CHF, DIABETES, HYPERTENSION, SEIZURE DISORDERS, CHRONIC SACRAL PRESSURE INJURY WOUND AND DEMENTIA. ABOVE INFORMATION OBTAINED FROM THE ADMISSION H&P. PT. ADMITTED THIS TIME WITH PRESSURE INJURY STAGE4 ON SACRAL COCCYX. LABS ARE WBC 13.1, H/H 11.4/34.1, GLUCOSE 122 AND ALBUMIN 2.2. PATIENT IS NON-VERBAL. SKIN WARM TO TOUCH. NO HAIR GROWTH BLE DRY WITH KNEES CONTRACTURE OBSERVED AND BILATERAL PEDAL PULSES PRESENT. GT AND TRACH IN PLACE, WEST CATHETER PATENT WITH YELLOW COLORED URINE IN MODERATE AMOUNT. RECTAL TUBING IN PLACE WITH SOME LEAKAGE, PRIMARY RN AT BED SIDE AND NOTIFIED. PT. NEEDS ASSISTANCE IN TURNING. PLAN OF CARE DISCUSSED WITH PRIMARY RN. INTEGUMENTARY: -HX OF CRANIOTOMY TO RIGHT TEMPORAL, SCALP SKIN INTACT, NON-BULGED, OLD HEALED SCAR TO LEFT SCALP. -TRACHEOSTOMY STOMA SITE CLEAN AND MELY-STOMA SKIN DRY AND INTACT -LUQ GT STOMA SITE MELY-STOMA SKIN EROSION, 1.5X1X0.1 CM -MID ABDOMEN CHRONIC HERNIA -ABDOMINAL FOLDS AND GROINS MOIST AND CLEAN -SACROCOCCYX PRESSURE ULCER STAGE 4 WITH 4X4X2 CM AND UNDERMINING BETWEEN 10 O'CLOCK TO 12 O'CLOCK WITH DEEPEST AT 11 O'CLOCK MEASURED 1.5 CM DEEP, WOUND BED 100% GRANULATING TISSUE,MOIST, NO ODOR, WOUND EDGE FLAT MACERATED AND IAD FROM MELY-WOUND SKIN EXTENDED TO R/L INNER BUTTOCKS -INCONTINENT ASSOCIATED DERMATITIS (IAD) R/L INNER BUTTOCKS EXTEND TO MELY-ANAL AREA,REDNESS WITH DENUDED SKIN RECOMMENDATIONS: -RECTAL BAG FOR MOISTURE CONTROL AND WOUND MANAGEMENT - CLEAN GI SITE EROSION AREA WITH NS, PAT DRY APPLY Z-GUARD BID AND COVER WITH AND PRN IF SOILING - CLEAN SACROCOCCYX PRESSURE ULCER WITH NS, PAT DRY, APPLY THERAHONEY DRESSING SHEET TO WOUND BED AND APPLY Z-GUARD TO WOUND EDGE AND MELY-WOUND SKIN COVER WITH OPTIFORM DRESSING QD AND PRN IF SOILING - CLEAN R/L INNER BUTTOCKS EXTENDED TO MELY-ANAL AREA WITH SOAP AND WATER, PAT DRY APPLY Z-GUARD BIDWC AND PRN IF SOILING AND OPEN TO AIR -TURN AND REPOSITION PATIENT Q2H TO LEFT AND RIGHT SIDE ONLY TO OFFLOAD SACROCOCCYX -ASSESS AND MONITOR SKIN CONDITION DURING POSITION CHANGE, PLEASE PAY ATTENTION TO SACROCOCCYX -OFFLOAD BILATERAL HEELS BY PLACING PILLOWS UNDER CALVES AT ALL TIMES, UNLESS OTHERWISE CONTRAINDICATED -PRESSURE REDISTRIBUTION SURFACE THERAPY -KEEP SKIN CLEAN AND DRY AT ALL TIMES. COMORBIDITIES RELATED TO SKIN BREAK DOWN: HX OF PRESSURE ULCER, CHRONIC BOWEL AND BLADDER INCONTINENT, DM, IMPAIRED MOBILITY, COGNITIVE IMPAIRMENT AND HOB ELEVATED THE MAJORITY OF THE DAY FOR MEDICAL CONDITION RECOMMENDATIONS DISCUSSED WITH PRIMARY RN WILL FOLLOW UP PATIENT Q 7 -10 DAYS AND PRN. PLEASE CONTACT WOUND CARE NURSE FOR ANY CONCERNS AND CHANGES IN WOUND CONDITION Addendum: 03/26/18 at 1119 by Miguel Jaime RN (Grace) DR. ORTIZ NOTIFIED OF RECOMMENDATIONS.
[2018-03-26] MEDS ORDERED: Z-GUARD PASTE TP PRN (11:00)
[2018-03-26] MEDS ORDERED: THERAHONEY WOUND DRESSING TP PRN (11:00)
--- NOTE | 2018-03-26 11:18 | NUR ---
VENT CHECK, SXN PT SMALL AMT OF THIN YELLOW SECRETIONS, AIRWAY IS PATENT AND PT IS HAVING ULTRASOUND DONE
[2018-03-26 12:00] VITALS: BP 93/59
[2018-03-26] MEDS: SULFAMETH IV SCH ×2 (12:21→18:40)
[2018-03-26] MEDS: TRIMETH IV SCH ×2 (12:21→18:40)
[2018-03-26] MEDS: DEXTROSE 5% IV SCH ×2 (12:21→18:40)
[2018-03-26] MEDS: PHENYTOIN 100 MG/4 ML UDC GT SCH ×2 (13:00→20:56)
[2018-03-26] MEDS: LACTULOSE 20 GM/30 ML UDC GT SCH ×2 (13:00→20:55)
--- NOTE | 2018-03-26 13:40 | NUR ---
VENT CHECK, SXN PT MODERATE AMT OF THICK YELLOW SECRETIONS, B\S COARSE AIRWAY PATENT AND TRACH CARE DONE CHANGED TRACH GAUZE
--- NOTE | 2018-03-26 13:42 | NUR ---
03/26/18 RD INITIAL ASSESSMENT COMPLETED PLEASE REFER TO NUTRITION ASSESSMENT UNDER CARE ACTIVITY FOR ESTIMATED NUTRITIONAL NEEDS. 1. CONTINUE NPO MEDICALLY APPROPRIATE 2. CONSIDER NG-TUBE FEEDING WHEN PT IS MEDICALLY STABLE. RECOMMEND VITAL AF 1.2 @ GOAL RATE 50 ML/HR, START AT 10 ML/HR, AND INCREASE BY 10 ML/HR Q6H -THIS WILL PROVIDE 1200 ML OF VOLUME, 1440 KCAL, 90 GM OF PROTEIN, MEETING 96% OF ESTIMATED KCAL NEEDS AND 100% OF ESTIMATED PROTEIN NEEDS 3. RECOMMEND FREE WATER FLUSH [address] TO FOLLOW-UP 2-3 DAYS, HIGH RISK NEHA REEDER RD
[2018-03-26] MEDS: Z-GUARD PASTE TP SCH (15:00)
[2018-03-26 16:00] VITALS: BP 93/51
--- NOTE | 2018-03-26 16:00 | NUR ---
REMOVE GTUBE AND APPLIED MEDICATION PER ORDER. COVERED WITH DRESSING. DRESSING CLEAN AND DRY.
--- NOTE | 2018-03-26 16:27 | NUR ---
vent check, pt getting cleaned and airway is patent
--- NOTE | 2018-03-26 16:30 | NUR ---
INSERTED NG TUBE. SECURED WITH TAPE. WAITING FOR X-RAY FOR THE PLACEMENT CONFIRMATION.
--- NOTE | 2018-03-26 16:45 | NUR ---
BP 93/51. DR. SMITH AWARE.
--- NOTE | 2018-03-26 16:58 | NUR ---
DC'D RECTAL TUBE. APPLIED RECTAL BAG ORDER. KEEPT PT CLEAN AND DRY. WILL CONTINUE TO MONITOR.
--- NOTE | 2018-03-26 18:43 | NUR ---
CONTINUE ON TRACH TO VENT FIO2 30% TV 500 RR 12 PEEP 5. SATURATING 93%. NO ACUTE DISTRESS NOTED. NO CHANGE IN LOC. WILL CONTINUE TO MONITOR.
--- NOTE | 2018-03-26 19:30 | NUR ---
ENDORSED TO STRAIGHTENER RN FOR CONTINUITY OF CARE. PT ON STABLE CONDITION.
--- NOTE | 2018-03-26 19:33 | NUR ---
RECEIVED ENDORSEMENT FROM YOAN RN DAYSHIFT NURSE AT BEDSIDE FOR CONTINUITY OF CARE. PT IN STABLE CONDITION NO S/S OF PAIN OR DISTRESS NOTED. ALL FALLS PRECAUTIONS IN PLACE.
[2018-03-26 20:00] VITALS: BP 104/55
[2018-03-26] MEDS: ATORVASTATIN 20 MG TAB GT SCH (20:58)
--- NOTE | 2018-03-26 22:30 | NUR ---
POSITIVE EFFECT OF PRN NORCO NOTED . PT SLEEPING SOUNDLY WITH NO S/S OF PAIN OR DISTRESS PT TURNED AND CHANGED. SHE IS CURRENTLY ON WOUND BED. WOUND CARE PROVIDED FOR PT, NO DRAINAGE OR ODOR NOTED. V/S FOLLOWS T 98.8 P 80 R 12 B/P 104/55 O2 IS 96% ON R/A.
--- NOTE | 2018-03-26 22:30 | NUR ---
PT LYING IN BED ALL FALLS AND SEIZURE PRECAUTIONS IN PLACE. PT DAUGHTER DAJA AND HER CHILDREN CAME TO VISIT THE PT. DAUGHTER NOTICED MOTHER GRIMACING AND PT WAS GIVEN NORCO VIA GT PRN. PT ROBINUL AND COLACE WERE HELD DUE TO PT BEING NPO AND HAVING LOOSE STOOL. MEDS GIVEN VIA GT AND FLUSHED PATENT .
[2018-03-27] MEDS: DEXTROSE 5% IV SCH ×5 (00:14→23:55)
[2018-03-27] MEDS: TRIMETH IV SCH ×5 (00:14→23:55)
[2018-03-27] MEDS: SULFAMETH IV SCH ×5 (00:14→23:55)
[2018-03-27 00:30] VITALS: BP 103/60
--- NOTE | 2018-03-27 01:00 | NUR ---
PT SLEEPING SOUNDLY, NO S/S OF PAIN OR DISTRESS NOTED HOB UP 45%. PT REMAINS NPO EXCEPT MEDS.
[2018-03-27 04:00] VITALS: BP 103/52
--- NOTE | 2018-03-27 05:04 | NUR ---
RT AT BEDSIDE TO CHANGE TRACH AND TRACH COLLAR. PT IS SLEEPING SOUNDLY , HOB UP AND ALL FALLLS AND SEIZURE PRECAUTIONS IN PLACE.
[2018-03-27] MEDS: LACTULOSE 20 GM/30 ML UDC GT SCH (05:11)
[2018-03-27] MEDS: PHENYTOIN 100 MG/4 ML UDC GT SCH ×3 (05:11→21:22)
[2018-03-27] MEDS: METOCLOPRAMIDE 10 MG/10 ML SYRP UDC GT SCH ×3 (05:12→21:21)
[2018-03-27] MEDS: DEXT 5% /NACL 0.9% 1,000 ML IV SCH (05:25)
--- NOTE | 2018-03-27 07:00 | NUR ---
RECIVED PT ON VENT WITH SETTINGS CHARTED BREATH SOUNDS PRESENT BILAT SCATTERD RALES SXN PT WITH MIN AMT OFF WHITE SECS TRACH SITE SECURE AMBU BAG AT BEDSIDE VENT PLUGGED INTO RED OUTLET WILL CONTINUE TO MONITOR PT ON VENT
[2018-03-27] MEDS: BLOOD GLUCOSE MONITORING 1 DEV DEV FS SCH ×4 (07:33→21:43)
--- NOTE | 2018-03-27 07:34 | NUR ---
REPORT GIVEN TO DONNELL RN DAYSHIFT NURSE AT BEDSIDE FOR CONTINUITY OF CARE, PT IN STABLE CONDITION.
--- NOTE | 2018-03-27 07:35 | NUR ---
RECEIVED BEDSIDE REPORT FROM INDUSTRIAL RELATIONS REPRESENTATIVE NURSE. PATIENT IS AWAKE, ALERT AND ORIENTEDX1. PATIENT IS APHASIC, VENT PATIENT FIO2 30 VOL 500 FLOW 40 RR 12 PEEP 5. NO SIGNS OF DISTRESS, 02MONITOR AT BEDSIDE. SHE IS BEDBOUND. STAGE 4 SACRAL COCCYX ULCER. DRESSING IS CLEAN, DRY AND INTACT. GTUBE WAS DISPLACED YESTERDAY. GTUBE SITE IS SOILED. DRESSING HAS GREEN MUCOID DISCHARGE. CLEANSED SITE W NS, PAT DRY ADMINISTERED ZGUARD AND COVERED W NEW DRESSING. CLEAN, DRY AND INTACT. NG TUBE IN PLACE. NO FEEDING AT THIS TIME. NG TUBE HEARD THE SWOOSH, NO RESIDUAL AT THIS TIME. WEST IN PLACE, CLEAR, YELLOW URINE. TELE IN PLACE. R HAND 22G INFUSING D5NS AT 100., CLEAN, DRY AND INTACT. PATIENT IS ON WOUND BED. FALL RISK PROTOCOL IN PLACE. SEIZURE PROTOCOL IN PLACE. CONTACT PRECAUTIONS FOR HX OF ESBL IN URINE. WILL CONTINUE TO MONITOR. BED IN LOW POSITION. CALL LIGHT WITHIN REACH.
[2018-03-27 08:00] VITALS: BP 104/55
[2018-03-27 08:13] LABS: BASOPHILS # (AUTO) 0.1 K/uL (0.00-0.22); BASOPHILS % (AUTO) 0.6 % (0.0-2.0); EOSINOPHILS # (AUTO) 0.5 K/uL (0-0.4); EOSINOPHILS % (AUTO) 5.7 % (0.0-4.0); HEMATOCRIT 30.1 % (36-48); HEMOGLOBIN 10.2 g/dL (12.0-16.0); LYMPHOCYTES # (AUTO) 1.5 K/uL (2.5-16.5); LYMPHOCYTES % (AUTO) 17.9 % (20.5-51.1); MEAN CORPUSCULAR HEMOGLOBIN 31 pg (27-31); MEAN CORPUSCULAR HGB CONC 34 g/dL (33-37); MEAN CORPUSCULAR VOLUME 91.2 fL (80-94); MONOCYTES # (AUTO) 0.7 K/uL (0.8-1.0); MONOCYTES % (AUTO) 8.2 % (1.7-9.3); NEUTROPHILS # (AUTO) 5.7 K/uL (1.8-7.7); NEUTROPHILS % (AUTO) 67.6 % (42.2-75.2); PLATELET COUNT (AUTO) 241 K/uL (140-450); RED CELL DISTRIBUTION WIDTH 14.8 % (11.6-13.7); WHITE BLOOD COUNT (AUTO) 8.5 K/uL (4.8-10.8)
[2018-03-27] MEDS: FERROUS SULFATE 300 MG/5 ML UDC GT SCH (08:39)
[2018-03-27 08:40] LABS: ANION GAP 8.2 (8-16); CARBON DIOXIDE 29.1 mmol/L (21-32); CREATININE 0.7 mg/dL (0.6-1.3); POTASSIUM 3.3 mmol/L (3.5-5.1)
[2018-03-27] MEDS: levETIRAcetam 100 MG/ML ORASYR GT SCH ×2 (08:40→21:22)
[2018-03-27] MEDS: GLYCOPYRROLATE 1 MG TAB GT SCH ×2 (08:40→21:21)
[2018-03-27] MEDS: MULTIVITAMIN/MINERALS 15 ML UDBTL GT SCH (08:41)
[2018-03-27] MEDS: ASCORBIC ACID 500 MG/5 ML ORASYR GT SCH ×2 (08:41→21:21)
[2018-03-27] MEDS: LACTOBACILLUS RHAMNOSUS GG 1 EACH CAP GT SCH (08:42)
[2018-03-27] MEDS: METHIMAZOLE 5 MG TAB GT SCH ×2 (08:42→21:22)
[2018-03-27] MEDS: FAMOTIDINE 20 MG TAB GT SCH (08:42)
[2018-03-27] MEDS: LISINOPRIL 10 MG TAB GT SCH (08:43)
[2018-03-27 08:44] LABS: MAGNESIUM 2.4 mg/dL (1.8-2.4); PHOSPHORUS 3.2 mg/dL (2.5-4.9)
[2018-03-27] MEDS: THERAHONEY WOUND DRESSING TP SCH (08:47)
[2018-03-27] MEDS: DOCUSATE 100 MG/10 ML UDC PO SCH ×2 (08:47→21:21)
--- NOTE | 2018-03-27 08:50 | NUR ---
CHECKED FOR NG TUBE PLACEMENT USING SWOOSH, NO RESIDUAL. FLUSHED NG TUBE. CRUSHED AND ADMINISTERED MEDS ONE BY ONE. FLUSHED IN BETWEEN EACH MED. PATIENT TOLERATED WELL. NO COMPLAINTS AT THIS TIME. PERFORMED WOUND CARE. PATIENT TOLERATED WELL. PATIENT TURNED AND REPOSITIONED. RT TO COME IN TO CHANGE TRACH DRESSING. WILL CONTINUE TO MONITOR THE PATIENT
--- NOTE | 2018-03-27 10:01 | NUR ---
TRACH CARE DONE SXN CLEAR SECS ORALLY ALSO VIA TRACH MIN TO MOD AMT NO ILL EFFECTS NOTED
[2018-03-27] MEDS ORDERED: KCL 20 MEQ/WATER INJ PREMIX 200 ML IV SCH (10:15)
--- NOTE | 2018-03-27 10:40 | NUR ---
PATIENT IS SLEEPING. NO SIGNS OF DISTRESS ON VENT. WILL CONTINUE TO MONITOR. BED IN LOW POSITION. CALL LIGHT WITHIN REACH. BED ALARM ON.
--- NOTE | 2018-03-27 11:39 | NUR ---
ADMINISTERED NEEDED ANTIBIOTICS. IV IS CLEAN, DRY AND INTACT. NO SIGNS OF DISTRESS. WILL CONTINUE TO MONITOR THE PATIENT
--- NOTE | 2018-03-27 11:40 | NUR ---
PLACED COLOSTOMY BAG AT GTUBE SITE. CLEAN, DRY AND INTACT. WILL GET STOOL SAMPLE
[2018-03-27 12:00] VITALS: BP 102/54
[2018-03-27] MEDS ORDERED: POTASSIUM CHLORIDE 40 MEQ, LIDOCAINE 1% 25 MG in NACL 0.9% 250 ML IV SCH (13:00)
[2018-03-27] MEDS: Z-GUARD PASTE TP SCH ×2 (13:10)
--- NOTE | 2018-03-27 13:15 | NUR ---
ADMINISTERED MEDS VIA NG TUBE. CHECKED FOR PLACEMENT USING SWOOSH. NO RESIDUAL. ADMINISTERED ONE MED AT A TIME. FLUSHED BEFORE, IN BETWEEN MEDS AND AFTER W 30ML OF WATER. WILL CONTINUE TO MONITOR THE PATIENT. NEW IV ON L THUMB 24G INFUSING ANTIOBIOTICS AT 173ML/HR. IV IS CLEAN, DRY AND INTACT. IV ON L HAND INFILTRATED. REMOVED TIP IS INTACT.
--- NOTE | 2018-03-27 14:14 | NUR ---
POTASSIUM INFUSING. IV IS CLEAN, DRY AND INTACT. NO SIGNS OF DISTRESS ON VENT. WILL CONTINUE TO MONITOR THE PATIENT. BED IN LOW POSITION. CALL LIGHT WITHIN REACH
--- NOTE | 2018-03-27 15:27 | NUR ---
TURNED PATIENT W ABORIGINAL EDUCATION WORKER COORDINATOR. NO SIGNS OF DISTRESS ON VENT. PATIENT TOLERATED WELL. WILL CONTINUE TO MONITOR THE PATIENT. BED IN LOW POSITION. BED ALARM ON
[2018-03-27 16:00] VITALS: BP 107/52
--- NOTE | 2018-03-27 16:50 | NUR ---
SUCTIONED PATIENT D/T INCREASED SECRETIONS. ALSO SUCTIONED MOUTH. PATIENT TOLERATED WELL. NO SIGNS OF DISTRESS. WILL CONTINUE TO MONITOR THE PATIENT. BED IN LOW POSITION. WILL CONTINUE TO MONITOR
--- NOTE | 2018-03-27 17:10 | NUR ---
CONTINUED TO MONITOR PT ON VENT WITH SETTINGS CHARTED SXN PT WITH CLEAR THICK SECS TRACH SITE SECURE AMBU ABG AT BEDSIDE VENT PLUGGED INTO RED OUTLET
--- NOTE | 2018-03-27 18:35 | NUR ---
ADMINISTERED ANTIBIOTICS. IV IS CLEAN, DRY AND INTACT. NO SIGNS OF DISTRESS. WILL CONTINUE TO MONITOR THE PATIENT
--- NOTE | 2018-03-27 19:05 | NUR ---
Received pt stable on vent support at documented settings, suctioned moderate amounts of thick white secretions, no resp distress or SOB noted at this time, Portex 7 trach secured/patent/midline, alarms set and audible, ambu bag at bedside, vent plugged into red outlet, pulse ox on, will cont to monitor.
--- NOTE | 2018-03-27 19:22 | NUR ---
GAVE BEDSIDE REPORT TO FRAME OPERATOR NURSE. PATIENT ENDORSED IN STABLE CONDITION
--- NOTE | 2018-03-27 19:23 | NUR ---
RECEIVED BEDSIDE REPORT FROM DAY SHIFT NURSE PREETI RN, PT STABLE, NO DISTRESS NOTED, IV TO L THUMB 24G PATENT INTACT, INFUSING BACTRIM AT 173.3 ML/HR, INFUSING WELL, PT ON TRACH TO VENT, FIO2 30%, RR 12, PEEP 5, NO SOB, NG TUBE IN PLACE, CHECKED PLACEMENT USING AIR AND AUSCULTATION, PLACEMENT CONFIRMED, PT HAS NO RESIDUAL, INITIAL ASSESSMENT DONE, ALL SAFETY PRECAUTION MET, WILL CONTINUE TO MONITOR.
[2018-03-27 20:00] VITALS: BP 112/62
[2018-03-27] MEDS: ATORVASTATIN 20 MG TAB GT SCH (21:21)
--- NOTE | 2018-03-27 21:43 | NUR ---
DUE MEDICATION ADMINISTERED, PT TOLERATED WELL, NO DISTRESS NOTED, CALL LIGHT WITHIN REACH, WILL CONTINUE TO MONITOR.
--- NOTE | 2018-03-27 21:50 | NUR ---
TALKED TO DR. FAJARDO REGARDING PT BLOOD SUGAR IS 89, PT IS NPO AND IS ONLY ON 40ML/HR D5 NS, STATED HE WILL SEE PT ORDERS. WILL FOLLOW UP WITH ORDERS.
[2018-03-28] VITALS: BP 130/66
--- NOTE | 2018-03-28 00:01 | NUR ---
CHECKED ON PT, PT RESTING, NO DISTRESS NOTED, V/S TAKEN, WNL, PT RESTING,NO DISTRESS NOTED, CALL LIGHT WITHIN REACH, WILL CONTINUE TO MONITOR.
[2018-03-28] MEDS: DEXT 5% /NACL 0.9% 1,000 ML IV SCH (00:14)
--- NOTE | 2018-03-28 01:20 | NUR ---
CHANGED AND REPOSITIONED PT, PT TOLERATED WELL, DRESSING CHANGED, LEFT PT RESTING, NO DISTRESS NOTED, CALL LIGHT WITHIN REACH, WILL CONTINUE TO MONITOR.
[2018-03-28] MEDS: Z-GUARD PASTE TP SCH ×2 (01:45→13:00)
[2018-03-28 04:00] VITALS: BP 102/51
--- NOTE | 2018-03-28 04:01 | NUR ---
CHECKED ON PT, PT SLEEPING, V/S TAKEN, WNL, CALL LIGHT WITHIN REACH, WILL CONTINUE TO MONITOR.
[2018-03-28] MEDS: METOCLOPRAMIDE 10 MG/10 ML SYRP UDC GT SCH ×2 (05:00→05:24)
[2018-03-28] MEDS: PHENYTOIN 100 MG/4 ML UDC GT SCH ×4 (05:00→20:47)
[2018-03-28] MEDS: TRIMETH IV SCH ×3 (05:25→17:34)
[2018-03-28] MEDS: SULFAMETH IV SCH ×3 (05:25→17:34)
[2018-03-28] MEDS: DEXTROSE 5% IV SCH ×3 (05:25→17:34)
[2018-03-28] MEDS: BLOOD GLUCOSE MONITORING 1 DEV DEV FS SCH ×4 (05:53→20:54)
--- NOTE | 2018-03-28 05:53 | NUR ---
CHECKED FOR PLACEMENT OF NG TUBE BEFORE MEDICATION ADMINISTRATION, NG TUBE NOT IN PLACE, RECONFIRMED WITH ANOTHER NURSE LIAM RN, CONFIRMED NG TUBE NOT IN PLACE, PULLED OUT NG TUBE AND NOTIFIED DR. CASIANO REGARDING PT NG TUBE NOT IN PLACE, STATED UNDERSTANDING AND STATED IT IS OK SINCE PT IS GOING TO GET G TUBE PLACEMENT TODAY. PT RESTING, NO DISTRESS NOTED, CALL LIGHT WITHIN REACH, WILL CONTINUE TO MONITOR.
--- NOTE | 2018-03-28 07:25 | NUR ---
ENDORSED PT TO DAY SHIFT NURSE BALTAZAR RN, PT STABLE, NO DISTRESS NOTED, CALL LIGHT WITHIN REACH.
--- NOTE | 2018-03-28 07:30 | NUR ---
RECEIVED PT FROM PM NURSE, CONTACT PRECAUTION. PT OPENS EYES SPONTANEOUSLY, UNABLE TO FOLLOW COMMANDS. TRACH TO VENT WITH FIO2 30%, TV 500, RR 12, PEEP 5. NO S/S OF RESPIRATORY DISTRESS NOTED. PT HAS G-TUBE COVERED WITH COLOSTOMY BAG. NO NG TUBE, PT HAS WEST WITH SMALL AMOUNT OF URINE NOTED. SKIN NON INTACT( SEE WOUND ASSESSMENT) . PT ON WOUND BED. PT HAS IV TO LEFT THUMB # 24, INTACT AND PATENT. RUNNING D5 NS AT 60 MLS/HR, SEIZURE PRECAUTION AT PLACE, WILL CONTINUE TO MONITOR.
[2018-03-28 08:00] VITALS: BP 135/43
[2018-03-28 08:30] LABS: BASOPHILS % (AUTO) 0.7 % (0.0-2.0); EOSINOPHILS # (AUTO) 0.5 K/uL (0-0.4); HEMATOCRIT 30.7 % (36-48); HEMOGLOBIN 10.3 g/dL (12.0-16.0); LYMPHOCYTES # (AUTO) 1.8 K/uL (2.5-16.5); LYMPHOCYTES % (AUTO) 29.2 % (20.5-51.1); MEAN CORPUSCULAR HEMOGLOBIN 31 pg (27-31); MEAN CORPUSCULAR HGB CONC 34 g/dL (33-37); MEAN CORPUSCULAR VOLUME 93.1 fL (80-94); MONOCYTES # (AUTO) 0.4 K/uL (0.8-1.0); MONOCYTES % (AUTO) 6.2 % (1.7-9.3); NEUTROPHILS # (AUTO) 3.4 K/uL (1.8-7.7); NEUTROPHILS % (AUTO) 54.9 % (42.2-75.2); PLATELET COUNT (AUTO) 231 K/uL (140-450); RED CELL DISTRIBUTION WIDTH 14.7 % (11.6-13.7); WHITE BLOOD COUNT (AUTO) 6.1 K/uL (4.8-10.8)
[2018-03-28 08:51] LABS: ANION GAP 9.2 (8-16); CARBON DIOXIDE 27.3 mmol/L (21-32); CREATININE 0.6 mg/dL (0.6-1.3); POTASSIUM 3.5 mmol/L (3.5-5.1)
[2018-03-28] MEDS: MULTIVITAMIN/MINERALS 15 ML UDBTL GT SCH (09:00)
[2018-03-28] MEDS: levETIRAcetam 100 MG/ML ORASYR GT SCH ×2 (09:00→20:47)
[2018-03-28] MEDS: GLYCOPYRROLATE 1 MG TAB GT SCH ×2 (09:00→20:47)
[2018-03-28] MEDS: FAMOTIDINE 20 MG TAB GT SCH (09:00)
[2018-03-28] MEDS: DOCUSATE 100 MG/10 ML UDC PO SCH ×2 (09:00→20:47)
[2018-03-28] MEDS: LISINOPRIL 10 MG TAB GT SCH (09:00)
[2018-03-28] MEDS: METHIMAZOLE 5 MG TAB GT SCH ×2 (09:00→20:47)
[2018-03-28] MEDS ORDERED: POTASSIUM CHLORIDE 20% 40 MEQ/15 ML UDC GT SCH (09:00)
[2018-03-28] MEDS: LACTOBACILLUS RHAMNOSUS GG 1 EACH CAP GT SCH (09:00)
[2018-03-28] MEDS: ASCORBIC ACID 500 MG/5 ML ORASYR GT SCH ×2 (09:00→20:47)
[2018-03-28] MEDS: FERROUS SULFATE 300 MG/5 ML UDC GT SCH (09:00)
[2018-03-28] MEDS: THERAHONEY WOUND DRESSING TP SCH (09:00)
--- NOTE | 2018-03-28 09:00 | NUR ---
HECTOR ORTIZ AWARE UNABLE TO GIVE PT MEDS . DR. ORTIZ STATED PT WILL HAVE G-TUBE TUBE PROCEDURE TODAY BY .
--- NOTE | 2018-03-28 09:17 | NUR ---
PT SUCTIONED OBTAINED THICK WHITE/CLEAR SECRETIONS, AIRWAY IS PATENT AND TRACH IS SECURE. WILL CONTINUE TO MONITOR.
[2018-03-28 09:18] LABS: MAGNESIUM 2.4 mg/dL (1.8-2.4); PHOSPHORUS 3.4 mg/dL (2.5-4.9)
[2018-03-28] MEDS ORDERED: fentaNYL 0.05 MG/ML VIAL ONE (11:57)
[2018-03-28] MEDS ORDERED: MIDAZOLAM 2 MG/2 ML VIAL ONE (11:58)
[2018-03-28 12:00] VITALS: BP 119/45
--- NOTE | 2018-03-28 13:00 | NUR ---
PT OPENS EYES, UNABLE TO FOLLOW COMMANDS. SITUATION NO CHANGE. NO S/S OF RESPIRATORY DISTRESS NOTED.
--- NOTE | 2018-03-28 14:25 | NUR ---
DR. RODRÍGUEZ PRESENT TO BEDSIDE TO START NEW G-TUBE PROCEDURE.
--- NOTE | 2018-03-28 15:33 | NUR ---
03/28/18 RD FOLLOW UP COMPLETED PLEASE REFER TO NUTRITION ASSESSMENT UNDER CARE ACTIVITY FOR ESTIMATED NUTRITIONAL NEEDS. 1. CONTINUE NPO MEDICALLY APPROPRIATE 2. WHEN PT IS MEDICALLY STABLE CONSIDER VITAL AF 1.2 @ GOAL RATE 50 ML/HR, START AT 10 ML/HR, AND INCREASE BY 10 ML/HR Q6H. -THIS WILL PROVIDE 1200 ML OF VOLUME, 1440 KCAL, 90 GM OF PROTEIN, MEETING 96% OF ESTIMATED KCAL NEEDS AND 100% OF ESTIMATED PROTEIN NEEDS. 3. RECOMMEND FREE WATER FLUSH [address] TO FOLLOW-UP 2-3 DAYS, HIGH RISK NEHA REEDER RD
[2018-03-28 15:47] VITALS: BP 121/45
[2018-03-28] MEDS ORDERED: fentaNYL 0.05 MG/ML VIAL IVP ONE (15:55)
[2018-03-28] MEDS ORDERED: MIDAZOLAM 2 MG/2 ML VIAL IVP ONE (15:55)
[2018-03-28] MEDS ORDERED: NACL 0.9% 1,000 ML IV SCH (16:10)
[2018-03-28] MEDS ORDERED: fentaNYL 0.05 MG/ML VIAL IVP SCH (16:30)
[2018-03-28] MEDS ORDERED: MIDAZOLAM 2 MG/2 ML VIAL IVP SCH (16:30)
--- NOTE | 2018-03-28 17:19 | NUR ---
PT REMAINS ON DOCUMENTED VENT SETTINGS. VENT ALARMS REMAIN ON AND FUNCTIONING. PT SUCTIONED OBTAINED SMALL AMOUNT OF THICK WHITE SECRETIONS, AIRWAY IS PATENT AND TRACH IS SECURE. AREA AROUND STOMA SITE CLEANED AND NEW TRACH GAUZE/TIES REPLACED.
[2018-03-28] MEDS: METOCLOPRAMIDE 10 MG/2 ML INJ VIAL IVP SCH ×2 (17:34→20:47)
--- NOTE | 2018-03-28 18:10 | NUR ---
TURNED AND REPOSITIONED PT.CLEANED PT. NO S/S OF RESPIRATORY DISTRESS NOTED.
--- NOTE | 2018-03-28 19:18 | NUR ---
BEDSIDE REPORT GIVEN TO PM NURSE.
--- NOTE | 2018-03-28 19:19 | NUR ---
RECEIVED BEDSIDE REPORT FROM DAY SHIFT NURSE BALTAZAR RN, PT STABLE, NO DISTRESS NOTED, IV TO L THUMB 24G PATENT, INTACT, GOOD BLOOD RETURN, PT ON TRACH TO VENT, NO SOB NOTED, NEW G TUBE IN PLACE, NJ TUBE IN PLACE, WEST IN PLACE DRAINING YELLOW URINE, INITIAL ASSESSMENT DONE, ALL SAFETY PRECAUTION MET, WILL CONTINUE TO MONITOR.
[2018-03-28 20:00] VITALS: BP 128/56
[2018-03-28] MEDS: ATORVASTATIN 20 MG TAB GT SCH (20:47)
--- NOTE | 2018-03-28 20:47 | NUR ---
DUE MEDICATION ADMINISTERED THROUGH G TUBE, PT TOLERATED WELL, G TUBE HAS NO RESIDUAL, PT STABLE, NO DISTRESS NOTED, CALL LIGHT WITHIN REACH, WILL CONTINUE TO MONITOR.
--- NOTE | 2018-03-28 20:54 | NUR ---
PT BLOOD SUGAR 64, NOTIFIED DR. STEPHENIE DR. STATED TO GIVE D50, MEDICATION GIVEN, PT TOLERATED WELL, WILL RECHECK PT BLOOD SUGAR AFTER ADMINISTRATION.
--- NOTE | 2018-03-28 21:40 | NUR ---
RECHECKED PT BLOOD SUGAR 162, PT RESTING, NO DISTRESS NOTED, CALL LIGHT WITHIN REACH,
--- NOTE | 2018-03-28 22:00 | NUR ---
TUBE FEEDING STARTED, PT TOLERATED WELL, NO DISTRESS NOTED, CALL LIGHT WITHIN REACH, WILL CONTINUE TO MONITOR. Addendum: 03/28/18 at 2255 by Diann Bello RN TUBE FEEDING STOPPED, NJ TUBE NOT PATENT, UNABLE TO FLUSH, NOTIFIED DR. CASIANO REGARDING PT NJ TUBE NOT FLUSHING, STATED HE WILL ORDER KUB TO CONFIRM PLACEMENT, PT RESTING, NO DISTRESS NOTED, CALL LIGHT WITHIN REACH, WILL CONTINUE TO MONITOR.
--- NOTE | 2018-03-28 23:55 | NUR ---
CHECKED ON PT, PT RESTING, NO DISTRESS NOTED, V/S TAKEN, WITHIN PT BASELINE, CALL LIGHT WITHIN REACH, WILL CONTINUE TO MONITOR.
[2018-03-29] VITALS: BP 132/60
[2018-03-29] MEDS: Z-GUARD PASTE TP SCH ×2 (00:09→13:05)
--- NOTE | 2018-03-29 02:10 | NUR ---
RESULT CAME BACK FROM THE KUB, INFORMED DR. CASIANO REGARDING RESULT, STATED TO KEEP PT NPO, STOP THE FEEDING, MEDICATION IS OK TO GIVE ON THE G TUBE. PT RESTING, NO DISTRESS NOTED, CALL LIGHT WITHIN REACH, WILL CONTINUE TO MONITOR.
[2018-03-29 04:00] VITALS: BP 140/65
[2018-03-29] MEDS: PHENYTOIN 100 MG/4 ML UDC GT SCH ×2 (05:18→10:23)
--- NOTE | 2018-03-29 05:18 | NUR ---
DUE MEDICATION ADMINISTERED, CHECKED PT BLOOD SUGAR 87, NO INSULIN COVERAGE, PT STABLE, NO DISTRESS NOTED, CALL LIGHT WITHIN REACH, WILL CONTINUE TO MONITOR.
[2018-03-29] MEDS: BLOOD GLUCOSE MONITORING 1 DEV DEV FS SCH ×4 (05:38→21:26)
--- NOTE | 2018-03-29 07:25 | NUR ---
ENDORSED PT TO DAY SHIFT NURSE EROS RN, PT STABLE, NO DISTRESS NOTED, CALL LIGHT WITHIN REACH.
--- NOTE | 2018-03-29 07:45 | NUR ---
RECEIVED PATIENT ON VENT SETTINGS AC/VC 500 RATE 12 PEEP 5 FIO2 30%. PATIENT IS TRACH'D WITH A PORTEX SIZE 7 THAT IS SECURE WITH TRACH TIES. NO TREATMENT GIVEN INLINE. B/S: CLEAR BILATERALLY. AIRWAY IS PATENT. VENT BRAKES ARE ON. VENT PLUGGED INTO RED OUTLET. WILL CONTINUE TO MONITOR.
--- NOTE | 2018-03-29 07:46 | NUR ---
RECEIVED REPORT FROM DOCUMENT CONTROL ASSISTANT NURSE. PATIENT LYING DOWN IN BED, NO DISTRESS NOTED. ON TRACH TO VENT WITH VENT SETTINGS: FI02:30%, VT:500, RR:12, FLOW:40, PEEP:5, WITH O2 SAT AT 97%. AAOX1, APHASIC, CALM, SKIN COLOR APPROPRIATE TO ETHNICITY, WARM TO TOUCH. RIGHT CRANIAL ENDOCAPPING NOTED. PERFORMED ORAL SUCTIONING. HAS SACROCOCCYX STAGE 4 ULCER, DRESSING DRY AND INTACT. OLD GTUBE SITE HEALING, DRESSING INTACT. LUNGS COURSE ON ALL LOBES. NEW GTUBE SITE ON INTERMITTENT SUCTION PER ORDERS. NJ TUBE IN PLACE, NOT PATENT, UNABLE TO FLUSH. ALREADY AWARE. AWAITING FOR DR. RODRÍGUEZ CONSULT. IV SITE INTACT, PATENT, AND INFUSING IVF PER ORDERS. WEST CATHETER IN PLACE, DRAINING DARK YELLOW CLOUDY URINE. ON WOUND CARE AIR MATTRESS BED. REVIEWED PLAN OF CARE WITH PATIENT. REINFORCEMENT NEEDED. SAFETY MEASURES IN PLACE, CALL LIGHT WITHIN REACH. WILL CONTINUE TO MONITOR.
[2018-03-29 08:00] VITALS: BP 139/62
[2018-03-29 08:19] LABS: BASOPHILS % (AUTO) 0.3 % (0.0-2.0); EOSINOPHILS # (AUTO) 0.5 K/uL (0-0.4); EOSINOPHILS % (AUTO) 4.6 % (0.0-4.0); HEMATOCRIT 31.4 % (36-48); HEMOGLOBIN 10.8 g/dL (12.0-16.0); LYMPHOCYTES # (AUTO) 2.1 K/uL (2.5-16.5); LYMPHOCYTES % (AUTO) 20.7 % (20.5-51.1); MEAN CORPUSCULAR HEMOGLOBIN 32 pg (27-31); MEAN CORPUSCULAR HGB CONC 34 g/dL (33-37); MEAN CORPUSCULAR VOLUME 92.4 fL (80-94); MONOCYTES # (AUTO) 0.4 K/uL (0.8-1.0); MONOCYTES % (AUTO) 3.9 % (1.7-9.3); NEUTROPHILS # (AUTO) 7.3 K/uL (1.8-7.7); NEUTROPHILS % (AUTO) 70.5 % (42.2-75.2); PLATELET COUNT (AUTO) 230 K/uL (140-450); RED CELL DISTRIBUTION WIDTH 15.1 % (11.6-13.7); WHITE BLOOD COUNT (AUTO) 10.3 K/uL (4.8-10.8)
[2018-03-29 08:35] LABS: ANION GAP 9.1 (8-16); CARBON DIOXIDE 25.7 mmol/L (21-32); CREATININE 0.6 mg/dL (0.6-1.3)
[2018-03-29 08:38] LABS: POTASSIUM 2.8 mmol/L (3.5-5.1)
[2018-03-29 08:50] LABS: MAGNESIUM 2.2 mg/dL (1.8-2.4); PHOSPHORUS 3.3 mg/dL (2.5-4.9)
[2018-03-29] MEDS ORDERED: POTASSIUM CHLORIDE 20% 40 MEQ/15 ML UDC GT SCH (08:55)
[2018-03-29] MEDS ORDERED: metroNIDAZOLE 500 MG TAB PO SCH (09:00)
[2018-03-29] MEDS: POTASSIUM CHLORIDE 20% 40 MEQ/15 ML UDC GT SCH (09:00)
[2018-03-29] MEDS ORDERED: CEFEPIME 1,000 MG in DEXTROSE 5% 50 ML IV SCH (09:00)
--- NOTE | 2018-03-29 09:15 | NUR ---
DR. RODRÍGUEZ AT BEDSIDE REGARDING NOT FLUSHABLE NJ TUBE, DR. RODRÍGUEZ WITHDREW THE NJ TUBE BACK AND PLACED BACK IN DUE TO NJ TUBE BEING KINKED PER KUB SHOWED. NJ TUBE NOW FLUSHABLE. WILL CONTINUE TO MONITOR.
--- NOTE | 2018-03-29 09:29 | NUR ---
VENT CHECK AND ASSESS PATIENT. B/S: CLEAR BILATERALLY. ORALLY SUCTIONED PATIENT AND RECEIVED SMALL, CLEAR SECRETIONS. AIRWAY IS PATENT. WILL CONTINUE TO MONITOR.
[2018-03-29] MEDS: MULTIVITAMIN/MINERALS 15 ML UDBTL GT SCH (10:22)
[2018-03-29] MEDS: levETIRAcetam 100 MG/ML ORASYR GT SCH ×2 (10:22→21:09)
[2018-03-29] MEDS: PANTOPRAZOLE 40 MG INJ VIAL IVP SCH (10:23)
[2018-03-29] MEDS: FERROUS SULFATE 300 MG/5 ML UDC GT SCH ×2 (10:24→21:09)
[2018-03-29] MEDS: ASCORBIC ACID 500 MG/5 ML ORASYR GT SCH ×2 (10:24→21:08)
[2018-03-29] MEDS: GLYCOPYRROLATE 1 MG TAB GT SCH ×2 (10:28→21:09)
[2018-03-29] MEDS: LACTOBACILLUS RHAMNOSUS GG 1 EACH CAP GT SCH (10:28)
[2018-03-29] MEDS: METOCLOPRAMIDE 10 MG/2 ML INJ VIAL IVP SCH ×4 (10:28→21:09)
[2018-03-29] MEDS: METHIMAZOLE 5 MG TAB GT SCH ×2 (10:29→21:09)
[2018-03-29] MEDS: LISINOPRIL 10 MG TAB GT SCH (10:29)
[2018-03-29] MEDS: THERAHONEY WOUND DRESSING TP SCH (10:31)
--- NOTE | 2018-03-29 10:43 | NUR ---
PATIENT LYING DOWN IN BED. NO DISTRESS NOTED. FLACC 0. SUCTIONED PATIENT ORALLY AND TRACH. TOLERATED WELL. SCHEDULED MEDICATIONS DUE GIVEN PER MD ORDERS. NJ TUBE FEEDING STARTED AT 10 ML/HR WITH WATER FLUSH:80 ML Q4 PER ORDERS. WILL INCREASE BY 10 ML/HR Q6 UP TO GOAL OF 50ML/HR PER ORDERS. WILL CONTINUE TO MONITOR.
--- NOTE | 2018-03-29 10:44 | NUR ---
40 MEQ POTASSIUM GIVEN PER DR. RODRÍGUEZ. SCHEDULED 20 MEQ NOT GIVEN.
--- NOTE | 2018-03-29 11:21 | NUR ---
VENT CHECK AND AIRWAY ASSESSMENT. INCREASED CUFF PRESSURE TO 30CM H2O. AUSCULTATED NECK AND TRACH AREA AND HEARD NO GURGLING OR AIR PASSAGE THAT WOULD INDICATE A LEAK. B/S: CLEAR BILATERALLY. PATIENT APPEARS COMFORTABLE. WILL CONTINUE TO MONITOR.
[2018-03-29 12:00] VITALS: BP 131/61
[2018-03-29] MEDS ORDERED: VANCOMYCIN PER PHARMACY MC PRN (13:00)
--- NOTE | 2018-03-29 13:05 | NUR ---
PATIENT LYING DOWN IN BED SLEEPING, AROUSABLE BY VOICE. CONDITION UNCHANGED. SCHEDULED MEDICATIONS DUE GIVEN. SUCTIONED PATIENT ORALLY. WILL CONTINUE TO MONITOR.
--- NOTE | 2018-03-29 13:38 | NUR ---
VENT CHECK AND PATIENT ASSESSMENT. B/S: CLEAR BILATERALLY. ORALLY SUCTIONED PATIENT: RECEIVED SMALL, THIN, CLEAR SECRETIONS. SUCTIONED TRACH AND RECEIVED SCANT, YELLOW AND THIN SECRETION.
[2018-03-29] MEDS: MEROPENEM 1,000 MG in NACL 0.9% 100 ML IV SCH ×2 (14:24→21:08)
--- NOTE | 2018-03-29 14:31 | NUR ---
PATIENT LYING DOWN IN BED SLEEPING, AROUSABLE BY VOICE. NO DISTRESS NOTED. FLACC 0. SCHEDULED ANTIBIOTICS DUE GIVEN. SAFETY MEASURES IN PLACE, CALL LIGHT WITHIN REACH. WILL CONTINUE TO MONITOR.
--- NOTE | 2018-03-29 14:54 | NUR ---
ASSISTED PIT SHOVEL OPERATOR IN CLEANING AND REPOSITIONING PATIENT. WILL CONTINUE TO MONITOR.
--- NOTE | 2018-03-29 15:47 | NUR ---
VENT CHECK AND ASSESS PATIENT. CHANGED HME. RN SUCTIONED PATIENT PRIOR TO MY CHECK.
[2018-03-29 16:00] VITALS: BP 118/61
[2018-03-29] MEDS ORDERED: VANCOMYCIN 1GM/DEXT 5% PREMIX 200 ML IV SCH (16:00)
[2018-03-29] MEDS: VANCOMYCIN 1GM/DEXT 5% PREMIX 200 ML IV SCH (16:08)
--- NOTE | 2018-03-29 16:12 | NUR ---
PATIENT LYING DOWN IN BED. NO DISTRESS NOTED. CONDITION UNCHANGED. PERFORMED ORAL SUCTION AND ORAL CARE. SCHEDULED MEDICATIONS DUE GIVEN. SAFETY MEASURES IN PLACE, CALL LIGHT WITHIN REACH. WILL CONTINUE TO MONITOR.
--- NOTE | 2018-03-29 17:51 | NUR ---
VENT CHECK, TRACH CARE AND ASSESS PATIENT. RN AND STUDENT AT BEDSIDE THAT ORALLY SUCTIONED PATIENT. DEEP TRACH SUCTIONED PATIENT AND RECEIVED SMALL, THIN AND PALE YELLOW SECRETIONS. CHANGED INNER CANNULA AND TRACH GAUZE. STOMA IS APPEARS HEALTHY AND MOIST.
--- NOTE | 2018-03-29 19:25 | NUR ---
GAVE REPORT TO ICE SKATER NURSE FOR CONTINUITY OF CARE. PATIENT IN STABLE CONDITION.
--- NOTE | 2018-03-29 19:30 | NUR ---
RECEIVED PT IN STABLE CONDITION FROM AM NURSE FOR CONTINUITY OF CARE. TELE PT. PT IS BEDBOUND. WITH TRACH TO VENT. O2 SAT 98%. WITH IVF INFUSING WELL ON THE LT THUMB G#24. CLEAR AND PATENT. HAS NJT WITH FEEDING . NO RESIDUAL NOTED. GT CONNECTED TO INTERMITTENT SUCTION, VERY SCANTY OUTPUT OF DARK GREENISH TO BROWN DRAINAGE. WEST CATHETER DRAINING WELL TO YELLOW COLORED URINE. HAS SACRAL WOUND. DRESSING CLEAN AND DRY. ON WOUND BED. BED ON LOW POSITION. FREQUENT ROUNDS NEEDED. CALL LIGHT WITHIN REACH. SIDE RAILS UP X2. AND PADDED FOR SEIZURE PRECAUTION. PT IS APHASIC. AND NEED FREQUENT ORAL SUCTIONING DUE TO DROOLING. WILL CONTINUE TO MONITOR.
--- NOTE | 2018-03-29 19:34 | NUR ---
Received pt stable on vent support at documented settings, suctioned small amounts of thick clear secretions, no resp distress or SOB noted at this time, Portex 7 trach secured/patent/midline, alarms set and audible, ambu bag at bedside, vent plugged into red outlet, pulse ox on, will cont to monitor.
[2018-03-29 20:00] VITALS: BP 106/51
[2018-03-29] MEDS: ATORVASTATIN 20 MG TAB GT SCH (21:10)
--- NOTE | 2018-03-29 21:30 | NUR ---
PT LYING COMFORTABLY IN BED, AWAKE, APHASIC. ORAL SUCTIONING DONE D/T EXCESSIVE CLEAR SECRETIONS. RESPIRATIONS EVEN & UNLABORED. ONGOING TRACH TO VENT & NJ-TUBE FEEDING. WILL CONTINUE TO MONITOR. Addendum: 03/30/18 at 0308 by Hillary Saenz RN ADDENDUM: GT INTERMITTENT SUCTION HELD POST MED ADMINISTRATION VIA GT.
--- NOTE | 2018-03-29 22:00 | NUR ---
HAS BEEN SUCTIONED THROUGH THE MOUTH DUE TO TOO MUCH DROOLING. NO SOB NOTED.
--- NOTE | 2018-03-29 23:10 | NUR ---
NJ-TUBE IN PLACE WITH 0ML RESIDUAL. ABD SOFT WITH ACTIVE BOWEL SOUNDS. FEEDING RATE OF VITAL AF 1.2 INCREASED FROM 20ML/HR TO 30ML/HR. PT JOSE WELL. HOB KEPT ELEVATED >30DEGREES. WILL CONTINUE TO MONITOR.
--- NOTE | 2018-03-29 23:30 | NUR ---
GT SUCTIONING RESUMED ON LOW INTERMITTENT SUCTION. ADL CARE PROVIDED VIA 2-PERSON TOTAL ASSIST. PT REPOSITIONED TO LEFT-SIDE LYING. NO SIGNS OF DISTRESS. RESPIRATIONS EVEN & UNLABORED. WILL CONTINUE TO MONITOR.
[2018-03-30] VITALS: BP 122/71
--- NOTE | 2018-03-30 02:00 | NUR ---
PT RESTING COMFORTABLY IN BED, AWAKE WITH EYES OPEN, APHASIC, UNABLE TO MAKE NEEDS KNOW. NO SIGNS OF DISTRESS. ORAL CAVITY SUCTIONED D/T EXCESSIVE CLEAR SECRETIONS. RESPIRATIONS EVEN & UNLABORED. TRACH TO VENT IN PLACE. NJ-TUBE FEEDING ONGOING. WILL CONTINUE TO MONITOR.
[2018-03-30] MEDS: Z-GUARD PASTE TP SCH ×2 (03:01→13:09)
[2018-03-30] MEDS: VANCOMYCIN 1GM/DEXT 5% PREMIX 200 ML IV SCH ×2 (03:42→16:32)
[2018-03-30 04:00] VITALS: BP 118/51
--- NOTE | 2018-03-30 04:00 | NUR ---
PT IS IN STABLE CONDITION WITH NO SOB NOTED.
[2018-03-30] MEDS: MEROPENEM 1,000 MG in NACL 0.9% 100 ML IV SCH ×3 (05:02→21:10)
--- NOTE | 2018-03-30 05:30 | NUR ---
FEEDING WAS CHECKED. TOLERATING WELL . NO RESIDUAL , INCREASED TO 40 ML/HR. WILL STILL CONTINUE TO MONITOR.
[2018-03-30] MEDS: BLOOD GLUCOSE MONITORING 1 DEV DEV FS SCH ×4 (06:45→21:00)
--- NOTE | 2018-03-30 07:10 | NUR ---
REPORT GIVEN TO AM SHIFT NURSE FOR CONTINUITY OF CARE. PT SLEEPING COMFORTABLY IN BED, RESPIRATIONS EVEN & UNLABORED. NO SIGNS OF DISTRESS. ONGOING TRACH TO VENT & NJ-TUBE FEEDING.
--- NOTE | 2018-03-30 07:21 | NUR ---
RECEIVED PATIENT ON CURRENT VENT SETTINGS AC/VC 500 RATE 12 PEEP 5 FIO2 30%. RN, EROS AND STUDENT AT BEDSIDE THAT SUCTIONED PATIENT. B/S: COARSE IN THE UPPER LOBES AND DIMINISHED IN THE BASES. PATIENT IS TRACH'D WITH A PORTEX 7 THAT IS SECURE WITH TRACH TIES. AIRWAY IS PATENT. CONFIRMED ALARM SETTINGS. VENT BRAKE IS ON AND PLUGGED INTO RED OUTLET. AMBU BAG AT BEDSIDE. WILL CONTINUE TO MONITOR.
--- NOTE | 2018-03-30 07:22 | NUR ---
RECEIVED REPORT FROM TELEGRAPHIC TYPEWRITER INSTALLER NURSE. PATIENT LYING DOWN IN BED, NO DISTRESS NOTED. ON TRACH TO VENT WITH VENT SETTINGS: FI02:30%, VT:500, RR:12, FLOW:40, PEEP:5, WITH O2 SAT AT 95%. AAOX1, APHASIC, CALM, SKIN COLOR APPROPRIATE TO ETHNICITY, WARM TO TOUCH. RIGHT CRANIAL ENDOCAPPING NOTED. PERFORMED ORAL SUCTIONING. HAS SACROCOCCYX STAGE 4 ULCER, DRESSING DRY AND INTACT. OLD GTUBE SITE HEALING, DRESSING INTACT. LUNGS COURSE ON ALL LOBES. NEW GTUBE SITE ON INTERMITTENT SUCTION PER ORDERS. NJ TUBE IN PLACE, FEEDING INFUSING PER MD ORDERS. IV SITE INTACT, PATENT, AND INFUSING IVF PER ORDERS. WEST CATHETER IN PLACE, DRAINING YELLOW CLOUDY URINE. ON WOUND CARE AIR MATTRESS BED. REVIEWED PLAN OF CARE WITH PATIENT. REINFORCEMENT NEEDED. SAFETY MEASURES IN PLACE, CALL LIGHT WITHIN REACH. WILL CONTINUE TO MONITOR.
[2018-03-30 08:00] VITALS: BP 115/60
[2018-03-30] MEDS: LISINOPRIL 10 MG TAB GT SCH (09:00)
[2018-03-30] MEDS: PHENYTOIN 100 MG/4 ML UDC GT SCH (09:32)
[2018-03-30] MEDS: ASCORBIC ACID 500 MG/5 ML ORASYR GT SCH ×2 (09:32→21:38)
[2018-03-30] MEDS: POTASSIUM CHLORIDE 20% 40 MEQ/15 ML UDC GT SCH (09:32)
[2018-03-30] MEDS: GLYCOPYRROLATE 1 MG TAB GT SCH ×2 (09:33→21:10)
[2018-03-30] MEDS: METOCLOPRAMIDE 10 MG/2 ML INJ VIAL IVP SCH ×4 (09:33→21:09)
[2018-03-30] MEDS: FERROUS SULFATE 300 MG/5 ML UDC GT SCH ×2 (09:33→21:09)
[2018-03-30] MEDS: levETIRAcetam 100 MG/ML ORASYR GT SCH ×2 (09:33→21:09)
[2018-03-30] MEDS: MULTIVITAMIN/MINERALS 15 ML UDBTL GT SCH (09:33)
[2018-03-30] MEDS: PANTOPRAZOLE 40 MG INJ VIAL IVP SCH (09:33)
[2018-03-30] MEDS: LACTOBACILLUS RHAMNOSUS GG 1 EACH CAP GT SCH (09:34)
[2018-03-30] MEDS: THERAHONEY WOUND DRESSING TP SCH (09:34)
[2018-03-30] MEDS: METHIMAZOLE 5 MG TAB GT SCH ×2 (09:34→21:10)
--- NOTE | 2018-03-30 09:34 | NUR ---
VENT CHECK AND ASSESS PATIENT. AIRWAY IS PATENT. RN AND STUDENT AT BEDSIDE. PATIENT APPEARS COMFORTABLE WITH NO RESPIRATORY DISTRESS. WILL CONTINUE TO MONITOR.
--- NOTE | 2018-03-30 09:56 | NUR ---
PATIENT LYING DOWN IN BED COMFORTABLY. NO DISTRESS NOTED. CONDITION UNCHANGED. SCHEDULED MEDICATIONS DUE GIVEN. DR. RODRÍGUEZ AND DR. ENRIQUE AT BEDSIDE REVIEWING PLAN OF CARE WITH PATIENT. SAFETY MEASURES IN PLACE, CALL LIGHT WITHIN REACH. WILL CONTINUE TO MONITOR.
[2018-03-30 10:56] LABS: BASOPHILS % (AUTO) 0.3 % (0.0-2.0); EOSINOPHILS # (AUTO) 0.6 K/uL (0-0.4); EOSINOPHILS % (AUTO) 4.8 % (0.0-4.0); HEMATOCRIT 36.6 % (36-48); HEMOGLOBIN 12.2 g/dL (12.0-16.0); LYMPHOCYTES # (AUTO) 1.9 K/uL (2.5-16.5); LYMPHOCYTES % (AUTO) 16.3 % (20.5-51.1); MEAN CORPUSCULAR HEMOGLOBIN 31 pg (27-31); MEAN CORPUSCULAR HGB CONC 33 g/dL (33-37); MEAN CORPUSCULAR VOLUME 92.6 fL (80-94); MONOCYTES # (AUTO) 0.7 K/uL (0.8-1.0); NEUTROPHILS # (AUTO) 8.4 K/uL (1.8-7.7); NEUTROPHILS % (AUTO) 72.6 % (42.2-75.2); PLATELET COUNT (AUTO) 266 K/uL (140-450); RED BLOOD CELL COUNT(AUTO) 3.96 MIL/uL (4.20-5.40); RED CELL DISTRIBUTION WIDTH 14.9 % (11.6-13.7); WHITE BLOOD COUNT (AUTO) 11.5 K/uL (4.8-10.8)
[2018-03-30 11:16] LABS: ANION GAP 12.7 (8-16); CARBON DIOXIDE 22.2 mmol/L (21-32); CREATININE 0.6 mg/dL (0.6-1.3)
[2018-03-30 11:26] LABS: POTASSIUM 2.9 mmol/L (3.5-5.1)
[2018-03-30 11:36] LABS: MAGNESIUM 2.1 mg/dL (1.8-2.4); PHOSPHORUS 2.6 mg/dL (2.5-4.9)
--- NOTE | 2018-03-30 11:39 | NUR ---
VENT CHECK AND ASSESS PATIENT. UPON ENTERING ROOM PATIENT SEEMED TO HAVE SOME DISCOMFORT AND POSSIBLE PAIN. RR WAS MAINTAINING IN THE 30'S. ORALLY SUCTIONED AND RECEIVED SMALL, CLEAR, THIN SECRETIONS. DEEP TRACHEAL SUCTIONED AND RECEIVED NO RETURN. ADVISED RN EROS OF PATIENTS POSSIBLE DISCOMFORT AND PAIN. PATIENT BEGAN TO CALM AFTER A FEW MINUTES AND RATE RETURNED UNDER 20. WILL CONTINUE TO MONITOR.
[2018-03-30 12:00] VITALS: BP 114/66
[2018-03-30] MEDS ORDERED: KCL 20 MEQ/WATER INJ PREMIX 200 ML IV ONE (13:17)
--- NOTE | 2018-03-30 13:18 | NUR ---
PATIENT LYING DOWN IN BED SLEEPING, AROUSABLE BY VOICE. NO DISTRESS NOTED. FLACC 0. SCHEDULED MEDICATIONS DUE GIVEN. SAFETY MEASURES IN PLACE, CALL LIGHT WITHIN REACH. WILL CONTINUE TO MONITOR.
--- NOTE | 2018-03-30 13:23 | NUR ---
VENT CHECK AND ASSESS PATIENT. AIRWAY IS PATENT. PATIENT APPEARS COMFORTABLE WITH NO RESPIRATORY DISTRESS. ORALLY SUCTIONED PATIENT AND RECEIVED SMALL, CLEAR, THIN SECRETIONS. DEEP TRACHEAL SUCTIONED AND RECEIVED SMALL TO SCANT THIN PALE YELLOW SECRETIONS.
--- NOTE | 2018-03-30 14:19 | NUR ---
PATIENT LYING DOWN IN BED. DAUGHTER AT BEDSIDE. NO DISTRESS NOTED. SCHEDULED MEDICATIONS DUE GIVEN. DR. ENRIQUE AT BEDSIDE REVIEWING PLAN OF CARE WITH DAUGHTER. WILL CONTINUE TO MONITOR.
--- NOTE | 2018-03-30 15:47 | NUR ---
VENT CHECK AND ASSESS PATIENT. ORALLY SUCTIONED PATIENT AND RECEIVED SMALL, THIN, CLEAR SECRETIONS. DEEP TRACHEAL SUCTIONED AND RECEIVED SMALL, PALE YELLOW THIN SECRETIONS. CHANGED HME.
[2018-03-30 16:00] VITALS: BP 148/76
--- NOTE | 2018-03-30 16:39 | NUR ---
PATIENT LYING DOWN IN BED SLEEPING, AROUSABLE BY VOICE. NO DISTRESS NOTED. CONDITION UNCHANGED. SCHEDULED MEDICATIONS DUE GIVEN. SAFETY MEASURES IN PLACE, CALL LIGHT WITHIN REACH. WILL CONTINUE TO MONITOR.
--- NOTE | 2018-03-30 17:25 | NUR ---
VENT CHECK AND TRACH CARE. CHANGED TRACH TIE, AND TRACH DRESSING/GAUZE. AREA APPEARS INTACT BUT HAS LARGE AMOUNTS OF CLEAR DRAINAGE. INFLATED CUFF TO 30 CM H2O. ORALLY SUCTIONED AND DEEP TRACHEAL SUCTIONED.
--- NOTE | 2018-03-30 18:15 | NUR ---
PATIENT LYING DOWN IN BED SLEEPING, AROUSABLE BY VOICE. NO DISTRESS NOTED. FLACC 0. CONDITION UNCHANGED. WILL CONTINUE TO MONITOR.
--- NOTE | 2018-03-30 19:25 | NUR ---
GAVE REPORT TO BREAK OUT WORKER NURSE FOR CONTINUITY OF CARE. PATIENT IN STABLE CONDITION.
--- NOTE | 2018-03-30 19:27 | NUR ---
RECEIVED REPORT FROM AM SHIFT NURSE. PT SLEEPING COMFORTABLY IN BED, RESPIRATIONS EVEN & UNLABORED. ONGOING TRACH TO VENT, & NJT FEEDING. HOB >30 DEGREES. WILL CONTINUE TO MONITOR.
[2018-03-30 20:00] VITALS: BP 127/94
[2018-03-30] MEDS: ATORVASTATIN 20 MG TAB GT SCH (21:09)
--- NOTE | 2018-03-30 21:10 | NUR ---
DUE MEDS GIVEN. GT SUCTION HELD AT THIS TIME POST MED ADMINISTRATION. NJT FEEDING OF VITAL AF ONGOING. OLD & NEW GT DRESSING CHANGED & COVERED WITH GAUZE. Z-GUARD APPLIED TO OLD PERISTOMA. PT AWAKE, APHASIC, UNABLE TO MAKE NEEDS KNOWN, NO SIGNS OF DISTRESS. TRACH TO VENT IN PLACE.
--- NOTE | 2018-03-30 22:10 | NUR ---
IV ACCESS ON THE LT THUMB DUE FOR CHANGED. DISCONTINUED. THEN A NEW IV ACCESS STARTED ON THE RT WRIST G#24. CLEAR AND PATENT.
--- NOTE | 2018-03-30 23:00 | NUR ---
GT INTERMITTENT LOW SUCTION RESUMED AT THIS TIME. ADL CARE PROVIDED VIA 2-PERSON TOTAL ASSIST. SACRAL DRESSING CLEAN, DRY, & INTACT. ORAL CAVITY SUCTIONED D/T EXCESSIVE CLEAR ORAL SECRETIONS. PT REPOSITIONED. WOUND MATTRESS FUNCTIONING WELL. TRACH TO VENT IN PLACE, NJT IN PLACE WITH ONGOING FEEDING. OLD GT STOMA DRESSING CHANGED D/T MOD GREENISH DRAINAGE. Z-GUARD REAPPLIED TO PERISTOMA. PT SHOWS NO SIGNS OF DISTRESS.
[2018-03-31] VITALS: BP 94/53
[2018-03-31] MEDS: Z-GUARD PASTE TP SCH ×2 (01:24→13:12)
--- NOTE | 2018-03-31 01:30 | NUR ---
PT SLEEPING COMFORTABLY IN BED, TRACH TO VENT IN PLACE, NJT FEEDING ONGOING, GT ON INTERMITTENT LOW SUCTION. SUCTIONED PO FOR EXCESSIVE CLEAR SECRETIONS. PT SHOWS NO SIGNS OF DISTRESS, RESPIRATIONS EVEN & UNLABORED.
[2018-03-31] MEDS: VANCOMYCIN 1GM/DEXT 5% PREMIX 200 ML IV SCH ×2 (03:27→16:00)
[2018-03-31 04:00] VITALS: BP 134/62
--- NOTE | 2018-03-31 04:30 | NUR ---
PT SLEEPING COMFORTABLY IN BED, RESPIRATIONS EVEN & UNLABORED. VITAL AF 1.2 ENTERAL FEEDING INFUSING @ 50ML/HR THRU NJ-TUBE. TRACH TO VENT IN PLACE. PT SHOWS NO SIGNS OF DISTRESS, RESPIRATIONS EVEN & UNLABORED, FLACC 0.
[2018-03-31] MEDS: MEROPENEM 1,000 MG in NACL 0.9% 100 ML IV SCH ×2 (05:12→13:13)
[2018-03-31] MEDS: BLOOD GLUCOSE MONITORING 1 DEV DEV FS SCH ×3 (06:09→17:28)
--- NOTE | 2018-03-31 06:47 | NUR ---
REC'D PT ON [place]ES[place] VENT SETTING AC12 VT 500 PEEP 5 FIO2 30% ALARMS ON AND AUDIBLE AND AMBU BAG AT SIDE OF VENT AND VENT IS PLUGGED INTO RED OUTLET, SXN PT SMALL AMT OF THICK CLEAR SECRETIONA, B\S ARE CLEAR BILATERALLY, PT IS TRACH WITH PORTEX 7 AND SKIN INTEGRITY IS INTACT PT IS RESTING
--- NOTE | 2018-03-31 07:05 | NUR ---
REPORT GIVEN TO AM SHIFT NURSE. PT LYING COMFORTABLY IN BED, NO SIGNS OF DISTRESS.
--- NOTE | 2018-03-31 07:06 | NUR ---
RECEIVED REPORT FROM TELEVISION TUBE INSPECTOR NURSE. PATIENT LYING DOWN IN BED SLEEPING, AROUSABLE BY VOICE. NO DISTRESS NOTED. ON TRACH TO VENT WITH VENT SETTINGS: FI02:30%, VT:500, RR:12, FLOW:40, PEEP:5, WITH O2 SAT AT 97%. AAOX1, APHASIC, CALM, SKIN COLOR APPROPRIATE TO ETHNICITY, WARM TO TOUCH. RIGHT CRANIAL ENDOCAPPING NOTED. PERFORMED ORAL SUCTIONING. HAS SACROCOCCYX STAGE 4 ULCER, DRESSING DRY AND INTACT. OLD GTUBE SITE HEALING, DRESSING INTACT AND CHANGED. MINIMAL DRAINAGE NOTED. LUNGS COURSE ON ALL LOBES. NEW GTUBE SITE ON INTERMITTENT SUCTION PER ORDERS. NJ TUBE IN PLACE, FEEDING INFUSING PER MD ORDERS. IV SITE INTACT, PATENT, AND INFUSING IVF PER ORDERS. WEST CATHETER IN PLACE, DRAINING YELLOW CLOUDY URINE. ON WOUND CARE AIR MATTRESS BED. REVIEWED PLAN OF CARE WITH PATIENT. REINFORCEMENT NEEDED. SAFETY MEASURES IN PLACE, CALL LIGHT WITHIN REACH. WILL CONTINUE TO MONITOR.
[2018-03-31 07:43] LABS: BASOPHILS % (AUTO) 0.4 % (0.0-2.0); EOSINOPHILS # (AUTO) 0.6 K/uL (0-0.4); EOSINOPHILS % (AUTO) 5.4 % (0.0-4.0); HEMOGLOBIN 11.1 g/dL (12.0-16.0); LYMPHOCYTES # (AUTO) 1.9 K/uL (2.5-16.5); LYMPHOCYTES % (AUTO) 16.4 % (20.5-51.1); MEAN CORPUSCULAR HEMOGLOBIN 32 pg (27-31); MEAN CORPUSCULAR HGB CONC 35 g/dL (33-37); MEAN CORPUSCULAR VOLUME 91.3 fL (80-94); MONOCYTES # (AUTO) 0.7 K/uL (0.8-1.0); MONOCYTES % (AUTO) 6.1 % (1.7-9.3); NEUTROPHILS # (AUTO) 8.2 K/uL (1.8-7.7); NEUTROPHILS % (AUTO) 71.7 % (42.2-75.2); PLATELET COUNT (AUTO) 276 K/uL (140-450); RED BLOOD CELL COUNT(AUTO) 3.51 MIL/uL (4.20-5.40); RED CELL DISTRIBUTION WIDTH 14.8 % (11.6-13.7); WHITE BLOOD COUNT (AUTO) 11.5 K/uL (4.8-10.8)
[2018-03-31 08:00] VITALS: BP 118/59
[2018-03-31 08:08] LABS: ANION GAP 12.4 (8-16); CARBON DIOXIDE 22.4 mmol/L (21-32); CREATININE 0.6 mg/dL (0.6-1.3)
[2018-03-31 08:09] LABS: POTASSIUM 2.8 mmol/L (3.5-5.1)
[2018-03-31 08:10] LABS: PHOSPHORUS 1.7 mg/dL (2.5-4.9)
--- NOTE | 2018-03-31 08:51 | NUR ---
VENT CHECK, NO SXN NEEDED AIRWAY IS PATENT AND PT IS RESTING WITH NO SIGNS OF DISTRESS NOTED
[2018-03-31] MEDS: levETIRAcetam 100 MG/ML ORASYR GT SCH (08:54)
[2018-03-31] MEDS: PHENYTOIN 100 MG/4 ML UDC GT SCH (08:54)
[2018-03-31] MEDS: ASCORBIC ACID 500 MG/5 ML ORASYR GT SCH (08:54)
[2018-03-31] MEDS: POTASSIUM CHLORIDE 20% 40 MEQ/15 ML UDC GT SCH (08:54)
[2018-03-31] MEDS: FERROUS SULFATE 300 MG/5 ML UDC GT SCH (08:54)
[2018-03-31] MEDS: PANTOPRAZOLE 40 MG INJ VIAL IVP SCH (08:55)
[2018-03-31] MEDS: LISINOPRIL 10 MG TAB GT SCH (08:55)
[2018-03-31] MEDS: LACTOBACILLUS RHAMNOSUS GG 1 EACH CAP GT SCH (08:55)
[2018-03-31] MEDS: GLYCOPYRROLATE 1 MG TAB GT SCH (08:55)
[2018-03-31] MEDS: METOCLOPRAMIDE 10 MG/2 ML INJ VIAL IVP SCH ×3 (08:55→17:00)
[2018-03-31] MEDS: METHIMAZOLE 5 MG TAB GT SCH (08:55)
[2018-03-31] MEDS: MULTIVITAMIN/MINERALS 15 ML UDBTL GT SCH (08:55)
[2018-03-31] MEDS: THERAHONEY WOUND DRESSING TP SCH (08:56)
--- NOTE | 2018-03-31 09:23 | NUR ---
PATIENT LYING DOWN IN BED, NO DISTRESS NOTED. FLACC 0. SUCTIONED PATIENT ORALLY AND THROUGH TRACH. SCHEDULED MEDICATIONS DUE GIVEN. SAFETY MEASURES IN PLACE, CALL LIGHT WITHIN REACH. WILL CONTINUE TO MONITOR .
--- NOTE | 2018-03-31 11:17 | NUR ---
VENT CHECK, SXN PT SMALL AMT OF THICK CLEAR SECRETIONS, PT IS RESTING
--- NOTE | 2018-03-31 11:30 | NUR ---
PATIENT LYING DOWN IN BED SLEEPING. NO DISTRESS NOTED. CONDITION UNCHANGED. WILL CONTINUE TO MONITOR.
[2018-03-31 12:00] VITALS: BP 115/63
--- NOTE | 2018-03-31 12:00 | NUR ---
03/31/18 RD FOLLOW UP COMPLETED PLEASE REFER TO NUTRITION PROGRESS NOTE UNDER CARE ACTIVITY FOR ESTIMATED NUTRITION NEEDS. RD RECOMMENDATIONS: 1. RECOMMEND CONTINUE TF VITAL AF 1.2 @ GOAL RATE 50 ML/HR WITH H2O FLUSH 80MLS Q4HRS. (SUFFICIENT TO MEET ~100% ESTIMATED NEEDS) 2. RD TO FOLLOW-UP 2-3 DAYS, HIGH RISK VALERIA BEEBE MBA, RD
--- NOTE | 2018-03-31 12:10 | NUR ---
Weapons Officer [employer] Notes: These show card writer Faxed Patient's Clinical information and MD Order to return to [facility]
--- NOTE | 2018-03-31 13:05 | NUR ---
Battery Tester And Repairer Notes: I called SN[facility] at to confirm with their staff that Patient's Clinical Information and MD orders was received. Per [facility] staff at admissions department Patient's information was received and she had already spoken with MINOR Chavez about patient and her needs after her discharge from [facility] to transfer back to their facility Therefore; [facility] stated that she will transfer me to speak to MINOR Chavez. During conversation with Doreen she stated that she has review patient's information and Patient can return to room 4-B with accepting Dr. Valencia after 3:00pm. I thank her for her information and ended the call.
--- NOTE | 2018-03-31 13:14 | NUR ---
PATIENT LYING IN BED SLEEPING, AROUSABLE BY VOICE. NO DISTRESS NOTED. FLACC 0. SCHEDULED MEDICATIONS DUE GIVEN. SAFETY MEASURES IN PLACE, CALL LIGHT WITHIN REACH. WILL CONTINUE TO MONITOR.
[2018-03-31] MEDS ORDERED: VANC1PLA9 IV (13:17)
[2018-03-31] MEDS ORDERED: METO5SOL24 IVP (13:17)
[2018-03-31] MEDS ORDERED: LACT10CA GT (13:17)
[2018-03-31] MEDS ORDERED: MER1I IV (13:17)
--- NOTE | 2018-03-31 13:40 | NUR ---
VENT CHECK, SXN PT SMALL AMT OF THICK CLEAR SECRETIONS, AIRWAY IS PATENT AND PT IS SLEEPING
[2018-03-31] MEDS: KCL 20 MEQ/WATER INJ PREMIX 100 ML IV SCH ×2 (13:54→16:15)
--- NOTE | 2018-03-31 13:59 | NUR ---
PATIENT LYING DOWN IN BED. NO DISTRESS NOTED. CONDITION UNCHANGED. PERFORMED ORAL SUCTIONING. SCHEDULED MEDICATIONS DUE GIVEN. SAFETY MEASURES IN PLACE, CALL LIGHT WITHIN REACH. WILL CONTINUE TO MONITOR.
[2018-03-31] MEDS ORDERED: SODIUM PHOS / POTASSIUM PHOS 1 PKT PDR PO SCH (15:00)
--- NOTE | 2018-03-31 15:12 | NUR ---
VENT CHECK, SXN PT LARGE AMT OF THICK CLEAR SECRETIONS,B\S ARE CLEAR AND TRACH CARE DONE
[2018-03-31 16:00] VITALS: BP 103/64
--- NOTE | 2018-03-31 16:00 | NUR ---
CALLED DAJA CACERES (DAUGHTER) NUMBER AND SPOKE WITH ALBERT RODRIGUEZ ([place]). NOTIFIED ALBERT THAT PATIENT WAS GOING TO [facility] [place] LATER TODAY AROUND 1800. ALBERT VERBALIZED UNDERSTANDING AND WILL TELL HIS .
--- NOTE | 2018-03-31 16:16 | NUR ---
PATIENT LYING DOWN IN BED SLEEPING, AROUSABLE BY VOICE. CONDITION UNCHANGED. SCHEDULED MEDICATIONS DUE GIVEN. WILL CONTINUE TO MONITOR.
--- NOTE | 2018-03-31 16:39 | NUR ---
vent check, no sxn needed airway is patent and pt is resting
--- NOTE | 2018-03-31 17:00 | NUR ---
CALLED [facility] AND GAVE REPORT TO NURSE. ANSWERED ALL OF HER QUESTIONS. NOTIFIED NURSE THAT PICKUP TIME WAS AT 1800. VERBALIZED UNDERSTANDING AND AWAITING FOR PATIENT'S ARRIVAL. WILL CONTINUE TO MONITOR.
--- NOTE | 2018-03-31 17:28 | NUR ---
VANCO TROUGH 24.2, PER PHARMACIST MIREYA, HOLD DOSE OF VANCO IF TROUGH NOT BETWEEN 10-15. WILL CONTINUE TO MONITOR.
[2018-03-31 17:29] LABS: ANION GAP 13.4 (8-16); CARBON DIOXIDE 20.2 mmol/L (21-32); CREATININE 0.5 mg/dL (0.6-1.3); POTASSIUM 3.6 mmol/L (3.5-5.1)
--- NOTE | 2018-03-31 17:40 | NUR ---
DISCHARGE INSTRUCTIONS PROVIDED TO PATIENT IN PREFERRED LANGUAGE OF THAI, TO BY FOLLOWED UP WITH DR. ROBERTSON AT [facility] [place]. UNABLE TO COMPREHEND. REINFORCEMENT NEEDED. ALL BELONGINGS WITH PATIENT. WILL CONTINUE TO MONITOR.
--- NOTE | 2018-03-31 18:15 | NUR ---
[facility] ARRIVED ON UNIT READY TO TAKE PATIENT TO [facility]. PATIENT DISCHARGED AT THIS TIME IN STABLE CONDITION VIA [facility].
== END 2018-03-31 18:15 | DRG 252 ==
LOC: MED 21:27 → MTU 03-26 00:20
PROVIDERS: ADMIT General Practice; ATTEND General Practice
PROC: 5A1955Z Respiratory Ventilation, Greater than 96 Consecutive Hours (ICD-10-PCS; principal; 2018-03-26)
PROC: 0D9670Z Drainage of Stomach with Drainage Device, Via Natural or Artificial Opening (ICD-10-PCS; 2018-03-28)
PROC: 0DH68UZ Insertion of Feeding Device into Stomach, Via Natural or Artificial Opening Endoscopic (ICD-10-PCS; 2018-03-28 12:00)
DX: K94.23 Gastrostomy malfunction (principal); N17.0 Acute kidney failure with tubular necrosis; A41.9 Sepsis, unspecified organism; E43 Unspecified severe protein-calorie malnutrition; K31.6 Fistula of stomach and duodenum; Z99.11 Dependence on respirator [ventilator] status; J96.10 Chronic respiratory failure, unspecified whether with hypoxia or hypercapnia; K94.22 Gastrostomy infection; L89.154 Pressure ulcer of sacral region, stage 4; D64.9 Anemia, unspecified; E83.41 Hypermagnesemia; F03.90 Unspecified dementia, unspecified severity, without behavioral disturbance, psychotic disturbance, mood disturbance, and anxiety; E03.9 Hypothyroidism, unspecified; E78.5 Hyperlipidemia, unspecified; E87.6 Hypokalemia; N39.0 Urinary tract infection, site not specified; I10 Essential (primary) hypertension; K92.9 Disease of digestive system, unspecified; K21.9 Gastro-esophageal reflux disease without esophagitis; E66.3 Overweight; B96.4 Proteus (mirabilis) (morganii) as the cause of diseases classified elsewhere; B96.5 Pseudomonas (aeruginosa) (mallei) (pseudomallei) as the cause of diseases classified elsewhere; E78.00 Pure hypercholesterolemia, unspecified; G40.909 Epilepsy, unspecified, not intractable, without status epilepticus; I35.0 Nonrheumatic aortic (valve) stenosis; J40 Bronchitis, not specified as acute or chronic; K25.9 Gastric ulcer, unspecified as acute or chronic, without hemorrhage or perforation; K43.9 Ventral hernia without obstruction or gangrene; Y83.8 Other surgical procedures as the cause of abnormal reaction of the patient, or of later complication, without mention of misadventure at the time of the procedure; K56.7 Ileus, unspecified; Y73.8 Miscellaneous gastroenterology and urology devices associated with adverse incidents, not elsewhere classified; J44.9 Chronic obstructive pulmonary disease, unspecified; E11.51 Type 2 diabetes mellitus with diabetic peripheral angiopathy without gangrene; D68.59 Other primary thrombophilia; K74.60 Unspecified cirrhosis of liver; Z87.891 Personal history of nicotine dependence; Z88.0 Allergy status to penicillin; Z98.2 Presence of cerebrospinal fluid drainage device; Z79.4 Long term (current) use of insulin; Z68.26 Body mass index [BMI] 26.0-26.9, adult; Z68.27 Body mass index [BMI] 27.0-27.9, adult; Z86.73 Personal history of transient ischemic attack (TIA), and cerebral infarction without residual deficits; Z88.8 Allergy status to other drugs, medicaments and biological substances; Z79.899 Other long term (current) drug therapy; Z74.01 Bed confinement status
CPT/HCPCS: 36415; 43760; 71045; 74018; 74241; 80048; 80053; 80185; 80202; 81001; 82140; 82150; 82272; 82948; 83036; 83605; 83690; 83735; 83880; 84100; 84439; 84443; 84484; 85025; 85610; 85730; 87040; 87070; 87081; 87086; 87186; 87205; 89220; 93005; 93925; 93970; 94002; 94003; 94640; 96365; 96366; 99285; C9113; J0692; J1815; J1956; J2001; J2185; J2250; J2765; J3010; J3370; J3480; J3490; J7030; J7042; J7060; J8597; Q0092; Q9967

== ENCOUNTER 2018-05-17 12:09 | Inpatient (IN) | payer MEDICAID ==
[~2018-05-17] VITALS: Ht 160 cm; Wt 82.6 kg
[~2018-05-17 12:09] MED LIST changes: +CHLO1SOL1; -CRAN450C GT; -DOCU-299 PO; -ESOM40EC GT; +HYDR-5092 GT; +KEP500L GT; +LACT10CA GT; -LACT10SO11 GT; +MER1I IV; +METO5SOL24 IVP; -ONDA4TAB GT; +VANC1PLA9 IV; -ZINC220C12 GT
[2018-05-17 12:13] VITALS: BP 153/77
[2018-05-17] MEDS ORDERED: NACL 0.9% 1,000 ML IV ONE (12:20)
[2018-05-17 12:24] VITALS: BP 153/77
--- NOTE | 2018-05-17 12:25 | NUR ---
62 YO FEMALE BIB EMS FROM [facility], FOR BLEEDING FROM G TUBE SITE. PT IS OPEN EYES ONLY, APHSIC, UNABLE TO FOLLOW COMMANDS, TRACH TO VENT, COUGHING AND CROAST LUNG SOUND SANTIAGO, SR ON COPER HAND, LARGE DISTENDED ABDOMEN NOTED, GT IN PLACE WITH BLEEDING IN THE TUBE, OPEN WOUND TO MID ABDOMEN NOTED, F/C IN PLACE WITH CLEAR YELLOW URINE, SEVERE WEAKNESS TO ALL EXTREMITIES, SKIN IS PINK/WARM/DRY, PRESSURE ULCER TO SACRAL, FLACC 0, VSS; PATIENT POSITIONED FOR COMFORT; HOB ELEVATED; BEDRAILS UP X2; BED DOWN. ER MD MADE AWARE OF PT STATUS.
--- NOTE | 2018-05-17 12:30 | NUR ---
RECEIVED TRACH PT WITH PORTEX 7 TRACH THROUGH ED. PT PLACED ON VENTILATOR WITH SETTINGS PROVIDED BY [facility] OF AC 12, VT 500, PEEP 5 AND FIO2 30%. PT TOLERATING SETTINGS WELL. PT SUCTIONED OBTAINED SMALL AMOUNT OF THICK YELLOW SECRETIONS, AIRWAY IS PATENT AND TRACH IS SECURE. VENT IS PLUGGED INTO A RED OUTLET WITH ALARMS ON AND FUNCTIONING. WILL CONTINUE TO MONITOR.
--- NOTE | 2018-05-17 12:35 | NUR ---
Patient being evaluated by physician at bedside.
[2018-05-17 12:38] LABS: BASOPHILS % (AUTO) 0.7 % (0.0-2.0); EOSINOPHILS # (AUTO) 0.5 K/uL (0-0.4); EOSINOPHILS % (AUTO) 7.2 % (0.0-4.0); HEMATOCRIT 33.4 % (36-48); HEMOGLOBIN 11.1 g/dL (12.0-16.0); LYMPHOCYTES # (AUTO) 1.7 K/uL (2.5-16.5); LYMPHOCYTES % (AUTO) 24.5 % (20.5-51.1); MEAN CORPUSCULAR HEMOGLOBIN 30 pg (27-31); MEAN CORPUSCULAR HGB CONC 33 g/dL (33-37); MEAN CORPUSCULAR VOLUME 89.7 fL (80-94); MONOCYTES # (AUTO) 0.4 K/uL (0.8-1.0); MONOCYTES % (AUTO) 5.7 % (1.7-9.3); NEUTROPHILS # (AUTO) 4.2 K/uL (1.8-7.7); NEUTROPHILS % (AUTO) 61.9 % (42.2-75.2); PLATELET COUNT (AUTO) 265 K/uL (140-450); RED BLOOD CELL COUNT(AUTO) 3.73 MIL/uL (4.20-5.40); RED CELL DISTRIBUTION WIDTH 14.2 % (11.6-13.7); WHITE BLOOD COUNT (AUTO) 6.8 K/uL (4.8-10.8)
[2018-05-17 12:56] LABS: ANION GAP 7.8 (8-16); CARBON DIOXIDE 33.3 mmol/L (21-32); CREATININE 0.7 mg/dL (0.6-1.3); POTASSIUM 3.1 mmol/L (3.5-5.1)
--- NOTE | 2018-05-17 13:00 | NUR ---
WEST CATHETER CHANGED, SMALL AMOUNT OF BLEEDING NOTED.
[2018-05-17 13:02] LABS: ALBUMIN 2.5 g/dL (3.4-5.0); TOTAL BILIRUBIN 0.2 mg/dL (0.0-1.0)
--- NOTE | 2018-05-17 13:07 | NUR ---
LAB CRITICAL RESULT LATIC ACID 2.1, DR. ORNELAS MADE AWARE.
[2018-05-17 13:09] LABS: PROTHROMBIN TIME 10.4 secs (10.8-13.4)
--- NOTE | 2018-05-17 13:57 | NUR ---
ESCORTED PT TO CT WITH ALUMINUM SIDING INSTALLER AND RT
[2018-05-17] MEDS ORDERED: NACL 0.9% 2,500 ML IV ONE (14:05)
--- NOTE | 2018-05-17 14:30 | NUR ---
NO S/S OF DISTRESS, VSS, FLACC 0. WOUND PICTURE TAKEN, WOUND CARE PROVIDED TO ABDOMEN AND COCCYX AREA.
[2018-05-17 14:41] LABS: APPEARANCE,URINE CLEAR (CLEAR); BILIRUBIN,URINE NEGATIVE (NEGATIVE); COLOR,URINE YELLOW (YELLOW); PH,URINE 6.5 (5.0-9.0); UGLUCOSE NEGATIVE (NEGATIVE)
[2018-05-17 14:42] LABS: LEUKOCYTE ESTERASE ,URINE 1+ (NEGATIVE); NITRITE, URINE NEGATIVE (NEGATIVE)
[2018-05-17 14:43] LABS: BLOOD, URINE 1+ (NEGATIVE)
--- NOTE | 2018-05-17 14:46 | NUR ---
CUFF PRESSURE WAS MEASURED AT [address] ORNELAS WAS INFORMED TRACH CUFF IS NOT PATENT. TRACH TUBE WILL BE EXCHANGED. Addendum: 05/17/18 at 1448 by Silvia Harrington RT ATTEMPTED TO REINFLATE CUFF AND PRESSURES DROPPED BACK DOWN TO 0 CM H2O.
[2018-05-17 14:50] LABS: RBC,URINE 3-10 (FEW) /HPF (0-5)
[2018-05-17 14:51] LABS: WBC,URINE 16-25 (MOD) /HPF (0-5)
--- NOTE | 2018-05-17 15:00 | NUR ---
ASSISTED DR. ORNELAS IN REPLACING THE TRACH TUBE WITH NO INCIDENT. CUFF PRESSURES AT 30 CM H2O AND VITALS STABLE. TRACH PATENT, DRY AND CLEAN.
[2018-05-17] MEDS ORDERED: LEVOFLOXACIN 500 MG/D5W PREMIX 100 ML IV ONE (15:15)
[2018-05-17] MEDS: POTASSIUM CHLORIDE 20% 40 MEQ/15 ML UDC PO ONE ×2 (15:22→15:23)
[2018-05-17] MEDS ORDERED: NACL 0.9% 1,000 ML IV SCH (15:26)
[2018-05-17] MEDS ORDERED: ACETAMINOPHEN 325 MG TAB PO PRN (15:30)
[2018-05-17] MEDS ORDERED: HYDROcodone/APAP 5/325 MG 1 TAB TAB PO PRN (15:30)
[2018-05-17] MEDS ORDERED: DOCUSATE SODIUM 100 MG GELCAP PO PRN (15:30)
[2018-05-17] MEDS ORDERED: MORPHINE SULFATE 2 MG/ML SYR IVP PRN (15:30)
[2018-05-17] MEDS ORDERED: ONDANSETRON 4 MG/2 ML VIAL IM/IVP PRN (15:30)
--- NOTE | 2018-05-17 15:50 | NUR ---
PT HAD A BOWEL MOVEMENT, MELY CARE PROVIDED, PT TOLERATED WELL.
--- NOTE | 2018-05-17 16:05 | NUR ---
TRANSPORTED [facility] PT FROM ER10 TO TELE 108B WITHOUT INCIDENT. VITALS REMAINED STABLE THROUGHOUT TRANSITION. ASSISTED NURSE SITAL DURING SETUP. VENT PLUGGED INTO RED OUTLET. TRACH PATENT, DRY AND CLEAN. AMBU BAG AT BEDSIDE ON VENT. ALARMS ON AND AUDIBLE. CONTINUOUS PULSE OX AT BEDSIDE.
[2018-05-17] MEDS ORDERED: MAGNESIUM HYDROXIDE 2400 MG/30 ML UDC PO PRN (16:15)
[2018-05-17] MEDS ORDERED: ALBUTEROL SULFATE/IPRATROPIU 3 ML SOL IH PRN (16:15)
[2018-05-17] MEDS ORDERED: BISACODYL 10 MG SUPP RC PRN (16:15)
[2018-05-17] MEDS ORDERED: HYDROcodone/APAP 10/325 MG 1 TAB TAB GT PRN (16:15)
--- NOTE | 2018-05-17 16:25 | NUR ---
RECEIVED REPORT FROM ER NURSE CARTER AT BEDSIDE. PT IS TRACH TO VENT DEPENDENT FOR OXYGEN. PER ER NURSE, PT IS APHASIC, CAME FROM [facility]. PT ADMITTED WITH CC OF BLEEDING FROM GT AND HAS DX OF GT MALFUNCTION. PT HAS HX OF CVA, COPD, DM, DEMENTIA, GERD HTN, RENAL DISEASE, SEIZURE. PT HAS CRANIOTOMY OF RT HEMISPHERE. SKIN IS NON-INTACT, HAS SACROCOCCYX PRESSURE WOUND STAGE 4, HAS OPEN OLD G-TUBE SITE. ALSO HAS ABD HERNIA, GET BIGGER WHILE PT COUGH OUT , HAS MILD DRAINAGE FORM THE SITE. PT HAS NGT AND FC. FC INSERTED IN ER , PT HAS LFT FA IV ACCESS 22 G. NS INFUSING AT 60 ML/HR. PT KEPT NPO, NOTHING BY NGT WELL. PLACED CALL LIGHT WITHIN PT REACH. BED AT LOWER POSITION. WILL CONTINUE TO MONITOR PT.
--- NOTE | 2018-05-17 16:30 | NUR ---
Patient will be admitted to care of DR. CASTELLANO. Admited to TELE. Will go to room 108B. Belongings list completed. Report to [facility] [place] AT BEDSIDE.
[2018-05-17 16:38] LABS: MAGNESIUM 2.6 mg/dL (1.8-2.4); PHOSPHORUS 3.5 mg/dL (2.5-4.9); THYROID STIMULATING HORMONE 5.22 uIU/mL (0.34-3.74)
--- NOTE | 2018-05-17 17:14 | NUR ---
WEANED PT FROM FIO2 OF 30% TO 28%. MONITORED CLOSELY FOR 20 MINS. VITALS REMAINED STABLE: SPO2 100%, PULSE 72, RATE 16. WILL CONTINUE TO MONITOR.
--- NOTE | 2018-05-17 17:45 | NUR ---
RECEIVED REPORT FROM ER NURSE CARTER AT BEDSIDE. PT IS TRACH TO VENT DEPENDENT FOR OXYGEN. PER ER NURSE, PT IS APHASIC, CAME FROM [facility] [place] [facility]. PT ADMITTED WITH CC OF BLEEDING FROM GT AND HAS DX OF GT MALFUNCTION. PT HAS HX OF CVA, COPD, DM, DEMENTIA, GERD HTN, RENAL DISEASE, SEIZURE. PT HAS CRANIOTOMY OF RT HEMISPHERE. SKIN IS NON-INTACT, HAS SACROCOCCYX PRESSURE WOUND STAGE 4, HAS OPEN OLD G-TUBE SITE. ALSO HAS ABD HERNIA, GET BIGGER WHILE PT COUGH OUT , HAS MILD DRAINAGE FORM THE SITE. PT HAS NGT AND FC. FC INSERTED IN ER , PT HAS LFT FA IV ACCESS 22 G. NS INFUSING AT 60 ML/HR. PT KEPT NPO, NOTHING BY NGT WELL. PLACED CALL LIGHT WITHIN PT REACH. BED AT LOWER POSITION. WILL CONTINUE TO MONITOR PT. Addendum: 05/17/18 at 1957 by Christiana Lopez RN WRONG TIME DOCUMENTED. TIME 1625 , PT REACHED MST UNIT
[2018-05-17] MEDS ORDERED: DEXTROSE 50% 50 ML SYR IVP PRN (18:45)
--- NOTE | 2018-05-17 19:15 | NUR ---
ENDORSED PT TO PM NURSE AT BEDSIDE. PT IN STABLE CONDITION.
--- NOTE | 2018-05-17 19:20 | NUR ---
RECEIVED REPORT FROM DAY SHIFT NURSE. PT HAS TRACH TO VENT. NON VERBAL. NO S/S OF PAIN OR SOB. PT HAS G-TUBE MALFUNCTION. PT HAS OPEN OLD G-TUBE SITE AND ABD HERNIA. WEST CATH IN PLACE WITH DEVONTE COLOR URINE. PT HAS NGT. IV TO LEFT FA #20G, NS AT 60 ML/HR INFUSING WELL. PT HAS PRESSURE ULCER TO SACROCOCCYGEAL AREA. PT HAS GEN. WEAKNESS. SAFETY AND SEIZURE PRECAUTION IN PLACE.
[2018-05-17 20:00] VITALS: BP 120/50
[2018-05-17] MEDS ORDERED: VANCOMYCIN 1GM/DEXT 5% PREMIX 200 ML IV SCH (20:00)
--- NOTE | 2018-05-17 20:20 | NUR ---
BLOOD SUGAR CHECKED 65. DR. DE LUNA MADE AWARE. PER MD, HE WILL CHANGE IVF TO D5NS.
[2018-05-17] MEDS ORDERED: VANCOMYCIN 1,000 MG VIAL ONE (20:31)
[2018-05-17] MEDS: GLYCOPYRROLATE 1 MG TAB GT SCH (21:00)
[2018-05-17] MEDS ORDERED: ASCORBIC ACID 500 MG TAB GT SCH (21:00)
[2018-05-17] MEDS: ATORVASTATIN 20 MG TAB GT SCH (21:00)
[2018-05-17] MEDS: METHIMAZOLE 5 MG TAB GT SCH (21:00)
[2018-05-17] MEDS ORDERED: ASPIRIN 81 MG TAB.CHEW GT SCH (21:00)
[2018-05-17] MEDS ORDERED: levETIRAcetam 100 MG/ML ORASYR GT SCH (21:00)
[2018-05-17] MEDS: DOCUSATE 100 MG/10 ML UDC GT SCH (21:00)
--- NOTE | 2018-05-17 21:00 | NUR ---
DR. DE LUNA ORDERED TO HOLD ALL MEDS VIA G-TUBE/NGT.
[2018-05-17] MEDS: DEXT 5% /NACL 0.9% 1,000 ML IV SCH (21:21)
[2018-05-17] MEDS: BLOOD GLUCOSE MONITORING 1 DEV DEV FS SCH (21:21)
[2018-05-17] MEDS: PHENYTOIN 100 MG/2 ML VIAL IVP SCH (21:22)
[2018-05-17] MEDS ORDERED: levETIRAcetam 100 MG/ML VIAL IV ONE (21:54)
[2018-05-17] MEDS: levETIRAcetam 500 MG in NACL 0.9% 100 ML IV SCH (22:06)
--- NOTE | 2018-05-17 23:05 | NUR ---
PT WAS CLEANED AND CHANGED. REPOSITIONED Q2H. PT KEPT DRY AND COMFORTABLE.
[2018-05-18] VITALS: BP 108/75
--- NOTE | 2018-05-18 01:30 | NUR ---
PT IN BED, AWAKE. NO S/S OF PAIN. NO S/S OF RESP DISTRESS. FALL AND SEIZURE PRECAUTION IN PLACE.
--- NOTE | 2018-05-18 02:55 | NUR ---
IV TO LEFT FA INFILTRATED. DC IV LINE, CANNULA INTACT. INSERTED NEW IV LINE TO RIGHT WRIST #22G. GOOD FLUSH AND BLOOD RETURN. PT TOLERATED PROCEDURE WELL.
[2018-05-18 04:00] VITALS: BP 112/46
--- NOTE | 2018-05-18 04:30 | NUR ---
GOWN AND LINEN CHANGED BY CNAS. REPOSITIONED PT FOR COMFORT. NO S/S OF PAIN OR SOB.
[2018-05-18] MEDS: PHENYTOIN 100 MG/2 ML VIAL IVP SCH ×3 (04:57→21:18)
[2018-05-18] MEDS: BLOOD GLUCOSE MONITORING 1 DEV DEV FS SCH ×4 (06:29→21:00)
--- NOTE | 2018-05-18 06:30 | NUR ---
BLOOD SUGAR CHECKED 88. NO S/S OF PAIN. NO S/S OF SOB. SUCTIONED EXCESSIVE ORAL SECRETIONS.
--- NOTE | 2018-05-18 07:15 | NUR ---
ENDORSED PT TO DAY SHIFT NURSE. PT IN STABLE CONDITION.
[2018-05-18 07:16] LABS: BASOPHILS % (AUTO) 0.2 % (0.0-2.0); EOSINOPHILS # (AUTO) 0.5 K/uL (0-0.4); EOSINOPHILS % (AUTO) 6.9 % (0.0-4.0); HEMATOCRIT 31.4 % (36-48); HEMOGLOBIN 10.5 g/dL (12.0-16.0); LYMPHOCYTES # (AUTO) 1.4 K/uL (2.5-16.5); LYMPHOCYTES % (AUTO) 18.5 % (20.5-51.1); MEAN CORPUSCULAR HEMOGLOBIN 30 pg (27-31); MEAN CORPUSCULAR HGB CONC 34 g/dL (33-37); MEAN CORPUSCULAR VOLUME 89.7 fL (80-94); MONOCYTES # (AUTO) 0.5 K/uL (0.8-1.0); NEUTROPHILS # (AUTO) 5.3 K/uL (1.8-7.7); NEUTROPHILS % (AUTO) 68.4 % (42.2-75.2); PLATELET COUNT (AUTO) 244 K/uL (140-450); RED CELL DISTRIBUTION WIDTH 14.3 % (11.6-13.7); WHITE BLOOD COUNT (AUTO) 7.7 K/uL (4.8-10.8)
--- NOTE | 2018-05-18 07:16 | NUR ---
RECEIVED REPORT FROM PM NURSE AT BEDSIDE. PT ON TRACH TO VENT DEPENDENT. O2 SAT 98%, NO SIGN OF DISTRESS SEEN IN PT.IS ON SEIZURE PRECAUTION AND IS ON CONTACT ISOLATION FOR HX OF MRSA IN WOUND. HAS FC, DARK DEVONTE COLOR URINE OBSERVED. HAS ABD PAD BANDAGE IN HER OPEN WOUND AT HER OLD G-TUBE SITE. BED ALARM ON, PUT SCD ON PT FOR DVT PROPHYLAXIS. SUCTIONED PT. PLACED BED AT LOWER POSITION, HAS IV ACCESS ON HER RT FA 22 G. D5 NS INFUSING AT 60 ML/HR. SITE INTACT AND PATENT.NO SIGN OF DISTRESS NOTED . ALL SAFETY MEASURE IN PLACE. WILL CONTINUE TO MONITOR PT.
[2018-05-18 07:23] LABS: ANION GAP 7.6 (8-16); CARBON DIOXIDE 29.4 mmol/L (21-32); CREATININE 0.7 mg/dL (0.6-1.3)
--- NOTE | 2018-05-18 07:24 | NUR ---
RECEIVED TRACH PT WITH A PORTE 7 TRACH ON VENT. SETTINGS AC 12, VT 500, PEEP 5 AND FIO2 28%. PT SUCTIONED OBTAINED SMALL AMOUNT OF THICK CLEAR/WHITE SECRETIONS, AIRWAY IS PATENT AND TRACH IS SECURE. PT IS AWAKE BUT NOT ALERT. PT IS NOT SOB AND NOT IN RESPIRATORY DISTRESS AT THIS TIME. VENT IS PLUGGED INTO A RED OUTLET WITH ALARMS ON AND FUNCTIONING. AMBU BAG IS PRESENT NEAR BEDSIDE. WILL CONTINUE TO MONITOR.
[2018-05-18 07:27] LABS: CHOL/HDL RATIO 1.9 (1-4.5)
[2018-05-18 08:00] VITALS: BP 131/65
[2018-05-18] MEDS: METHIMAZOLE 5 MG TAB GT SCH ×2 (09:00→21:00)
[2018-05-18] MEDS ORDERED: FERROUS SULFATE 300 MG/5 ML UDC GT SCH (09:00)
[2018-05-18] MEDS ORDERED: CHLORHEXIDINE GLUCONATE 0.12% 473 ML LIQ MM SCH (09:00)
[2018-05-18] MEDS: LISINOPRIL 10 MG TAB GT SCH (09:00)
[2018-05-18] MEDS ORDERED: VANCOMYCIN PER PHARMACY MC PRN (09:00)
[2018-05-18] MEDS: DOCUSATE 100 MG/10 ML UDC GT SCH ×2 (09:00→21:00)
[2018-05-18] MEDS: GLYCOPYRROLATE 1 MG TAB GT SCH ×2 (09:00→21:00)
[2018-05-18] MEDS ORDERED: MULTIVITAMIN/MINERALS 1 TAB GT SCH (09:00)
[2018-05-18] MEDS: LACTOBACILLUS RHAMNOSUS GG 1 EACH CAP GT SCH (09:00)
[2018-05-18] MEDS ORDERED: MAGNESIUM HYDROXIDE 2400 MG/30 ML UDC PO PRN (09:05)
[2018-05-18] MEDS ORDERED: MULTIVITAMIN/MINERALS 15 ML UDBTL GT SCH (09:10)
[2018-05-18] MEDS: levETIRAcetam 500 MG in NACL 0.9% 100 ML IV SCH ×2 (09:25→22:08)
--- NOTE | 2018-05-18 09:30 | NUR ---
ADMINISTERED IV MEDS ORDERED TO PT. TOLERATED WELL.PT NPO ,NO MEDS AND FOOD TO BE ADMINISTERED. PT SEEN BY GI CONSULT HAILE, PT TO BE SEEN BY DR RODRÍGUEZ FOR FURTHER EVALUATION. CHANGED THE DRESSING ON ABDOMINAL REGION , PLACED DRESSING GAUGE IN HER NEW G-TUBE SITE. DID ORAL CARE ON PT STANDARD PROTOCOL. PER DR SCALES, CHANGE THE DRESSING , PRN UPON SPOILING. TOLERATED WELL. NO SIGN DISTRESS NOTED . ALL SAFETY MEASURE IN PLACE. WILL CONTINUE TO MONITOR PT.
[2018-05-18] MEDS: VANCOMYCIN 1GM/DEXT 5% PREMIX 200 ML IV SCH ×2 (11:02→23:03)
--- NOTE | 2018-05-18 11:20 | NUR ---
PT SUCTIONED OBTAINED SMALL AMOUNT OF THICK WHITE SECRETIONS, AIRWAY IS PATENT AND TRACH IS SECURE. WILL CONTINUE TO MONITOR.
--- NOTE | 2018-05-18 12:00 | NUR ---
CHECKED ON PT. ADMINISTERED MEDS ORDERED. PERFORMED ORAL CARE. TOLERATED WELL. PT BS 89, D5 NS IVF INFUSING WELL. SUCTIONED PT. NO DISTRESS NOTED. WILL CONTINUE TO MONITOR PT.
[2018-05-18 12:19] VITALS: BP 123/68
[2018-05-18] MEDS: DEXT 5% /NACL 0.9% 1,000 ML IV SCH (13:05)
[2018-05-18] MEDS: MEROPENEM 1,000 MG in NACL 0.9% 100 ML IV SCH ×2 (13:12→21:18)
--- NOTE | 2018-05-18 13:30 | NUR ---
CHANGED PT WITH HELP OF STUDENT NURSE AT BEDSIDE. LEAD FURNACE OPERATOR AT BEDSIDE . CHANGED THE DRESSING ON BACK AND ABD OPEN WOUND FROM OLD GT. TOLERATED WELL. NO SIGN OF DISTRESS NOTED. CHANGED AND REPOSITIONED PT. ALL SAFETY MEASURE IN PLACE. WILL CONTINUE TO MONITOR PT.
--- NOTE | 2018-05-18 15:19 | NUR ---
PT ASLEEP AT THIS TIME NO RESPIRATORY DISTRESS NOTED. WILL CONTINUE TO MONITOR.
[2018-05-18 16:00] VITALS: BP 114/48
--- NOTE | 2018-05-18 16:30 | NUR ---
CHECKED ON PT . IVF INFUSING WELL. PT BS 80 AT THIS TIME . PT NPO, SINCE THE MALFUNCTIONING OF GT. VS NOTED. TEM NOTED 99.0. NO SIGN OF DISTRESS NOTED. SUCTIONED PT AND PROVIDED ORAL CARE. TOLERATED WELL. ALL SAFETY MEASURE IN PLACE. BED AT LOWER POSITION. SIDE RAILS RAISED UP. WILL CONTINUE TO MONITOR PT.
--- NOTE | 2018-05-18 17:33 | NUR ---
PT REMAINS ON DOCUMENTED VENT SETTINGS. PT IS NOT IN ANY DISTRESS AT THIS TIME. VENT ALARMS REMAIN ON AND FUNCTIONING. TRACH REMAINS SECURE WITH A PATENT AIRWAY.
[2018-05-18] MEDS ORDERED: KCL 20 MEQ/WATER INJ PREMIX 200 ML IV ONE (17:48)
--- NOTE | 2018-05-18 18:00 | NUR ---
ADMINISTERED K-RIDER FOR PT FOR LOWER POTASSIUM LEVEL OF 3.0. K-RIDER WAS OVERIDED FROM [facility] WAS NOT AVAILABLE. DR SCALES AWARE, ORDERED TO ADMINISTER K-RIDER AT SLOWER RATE TO PREVENT IRRITATION TO PT VEIN. INFUSING K-RIDER TO PT 25 ML/HR, DR. SCALES AWARE. TOTAL 2 BAGS OF IV TO BE INFUSED. 1ST 100 ML BAG INFUSING IN PT. CHARGE NURSE AWARE. WILL CONTINUE TO MONITOR PT.
[2018-05-18] MEDS ORDERED: KCL 20 MEQ/WATER INJ PREMIX 200 ML IV SCH (18:30)
--- NOTE | 2018-05-18 19:10 | NUR ---
ENDORSED PT TO PM NURSE AT BEDSIDE. PT IN STABLE CONDITION. STARTED K-RIDER, 1ST BAG INFUSING.
--- NOTE | 2018-05-18 19:12 | NUR ---
RECEIVED REPORT FROM DAY SHIFT NURSE. PT HAS TRACH TO VENT. APHASIC. NO S/S OF PAIN OR SOB. PT HAS ABDOMINAL DRESSING, DRY AND INTACT. WEST CATH IN PLACE WITH DEVONTE COLOR URINE. PT HAS NGT. IV TO RIGHT FA #22G, K RIDER AT 25 ML/HR INFUSING WELL. PT HAS DRESSING TO SACROCOCCYGEAL AREA, DRY AND INTACT. FALL, ASPIRATION AND SEIZURE PRECAUTION IN PLACE.
[2018-05-18 20:00] VITALS: BP 129/58
--- NOTE | 2018-05-18 20:15 | NUR ---
PATIENT RESTING BUT ALERT. NURSE AT BEDSIDE. VENT PLUGGED INTO RED OUTLET. ALARMS ON AND AUDIBLE. AMBU BAG AT BEDSIDE. TRACH CLEAN AND PATENT. VENT AT ORDERED SETTINGS: AC, 12, 500, +5, 30%. VITALS STABLE: 98%, PULSE 83, RATE 14, CLEAR BREATH SOUNDS. SXNED X1 FOR SCANT AMOUNT OF THINK CLEAR SECRETIONS. WILL CONTINUE TO MONITOR.
[2018-05-18] MEDS: ASCORBIC ACID 500 MG/5 ML ORASYR GT SCH (21:00)
[2018-05-18] MEDS: ATORVASTATIN 20 MG TAB GT SCH (21:00)
--- NOTE | 2018-05-18 21:00 | NUR ---
ALL MEDS VIA G-TUBE/NGT HELD BY DR. DE LUNA. BLOOD SUGAR CHECKED 77.
--- NOTE | 2018-05-18 21:10 | NUR ---
RIGHT FA IV INFILTRATED. D/C IV LINE, CANNULA TIP INTACT. INSERTED NEW IV LINE TO RIGHT HAND #22G AND LEFT HAND #24G, GOOD FLUSH AND BLOOD RETURN. PT TOLERATED PROCEDURE WELL.
--- NOTE | 2018-05-18 22:33 | NUR ---
HUNG SECOND BAG OF K RIDER @25 ML/HR. PT TOLERATING WELL.
[2018-05-19] VITALS (7 sets, daily range): BP systolic 125–138; BP diastolic 56–73
--- NOTE | 2018-05-19 00:05 | NUR ---
PT TURNED AND REPOSITIONED Q2H. NO S/S OF RESP DISTRESS.
[2018-05-19] MEDS: DEXT 5% /NACL 0.9% 1,000 ML IV SCH ×2 (03:01→15:52)
--- NOTE | 2018-05-19 03:10 | NUR ---
PT SLEEPING. NO S/S OF PAIN. NO S/S OF RESP DISTRESS. FALL AND SEIZURE PRECAUTION IN PLACE.
[2018-05-19] MEDS: MEROPENEM 1,000 MG in NACL 0.9% 100 ML IV SCH (04:39)
[2018-05-19] MEDS: PHENYTOIN 100 MG/2 ML VIAL IVP SCH ×3 (04:39→20:12)
--- NOTE | 2018-05-19 05:30 | NUR ---
PT SLEEPING. NO S/S OF RESP DISTRESS NOTED.
[2018-05-19] MEDS: BLOOD GLUCOSE MONITORING 1 DEV DEV FS SCH ×4 (06:24→19:58)
--- NOTE | 2018-05-19 06:40 | NUR ---
BLOOD SUGAR CHECKED 74. PT AWAKE. NO S/S OF PAIN OR RESP DISTRESS.
--- NOTE | 2018-05-19 07:00 | NUR ---
RECEIVED TRACH PT WITH A PORTEX 7 TRACH ON VENT. SETTINGS AC 12, VT 500, PEEP 5 AND FIO2 28%. PT SUCTIONED OBTAINED SMALL AMOUNT OF THICK CLEAR/WHITE SECRETIONS, AIRWAY IS PATENT AND TRACH IS SECURE. PT IS ASLEEP NOT IN RESPIRATORY DISTRESS AT THIS TIME. VENT IS PLUGGED INTO A RED OUTLET WITH ALARMS ON AND FUNCTIONING. AMBU BAG IS PRESENT NEAR BEDSIDE. WILL CONTINUE TO MONITOR.
[2018-05-19 07:02] LABS: BASOPHILS % (AUTO) 0.6 % (0.0-2.0); EOSINOPHILS # (AUTO) 0.5 K/uL (0-0.4); EOSINOPHILS % (AUTO) 9.1 % (0.0-4.0); HEMATOCRIT 31.4 % (36-48); HEMOGLOBIN 10.4 g/dL (12.0-16.0); LYMPHOCYTES # (AUTO) 1.2 K/uL (2.5-16.5); LYMPHOCYTES % (AUTO) 22.9 % (20.5-51.1); MEAN CORPUSCULAR HEMOGLOBIN 30 pg (27-31); MEAN CORPUSCULAR HGB CONC 33 g/dL (33-37); MEAN CORPUSCULAR VOLUME 89.4 fL (80-94); MONOCYTES # (AUTO) 0.3 K/uL (0.8-1.0); MONOCYTES % (AUTO) 6.4 % (1.7-9.3); NEUTROPHILS # (AUTO) 3.3 K/uL (1.8-7.7); PLATELET COUNT (AUTO) 222 K/uL (140-450); RED BLOOD CELL COUNT(AUTO) 3.51 MIL/uL (4.20-5.40); RED CELL DISTRIBUTION WIDTH 14.1 % (11.6-13.7); WHITE BLOOD COUNT (AUTO) 5.4 K/uL (4.8-10.8)
[2018-05-19 07:05] LABS: ANION GAP 5.6 (8-16); CREATININE 0.7 mg/dL (0.6-1.3); POTASSIUM 3.6 mmol/L (3.5-5.1)
--- NOTE | 2018-05-19 07:10 | NUR ---
ENDORSED PT TO DAY SHIFT NURSE. PT IN STABLE CONDITION.
[2018-05-19 07:11] LABS: MAGNESIUM 2.1 mg/dL (1.8-2.4); PHOSPHORUS 2.9 mg/dL (2.5-4.9)
--- NOTE | 2018-05-19 07:20 | NUR ---
RECEIVED REPORT FROM CROWN BLOCKER NURSE AT BEDSIDE. PT AWAKE, OX1, APHASIC. NO S/S OF PAIN OR SOB ON MECHANICAL VENT, AC/VC MODE. PT HAS ABDOMINAL DRESSING, DRY, AND INTACT. WEST CATH IN PLACE WITH YELLOW URINE. PT HAS NGT, NO FEEDING ORDERED AT THIS TIME. IV TO RIGHT HAND #22G, PATENT, ASYMPTOMATIC, INFUSING WELL. PT HAS DRESSING TO SACROCOCCYGEAL AREA, DRY AND INTACT. FALL, ASPIRATION AND SEIZURE PRECAUTION IN PLACE.
--- NOTE | 2018-05-19 08:11 | NUR ---
ORAL CARE DONE, PT TOLERATED WELL.
[2018-05-19] MEDS: levETIRAcetam 500 MG in NACL 0.9% 100 ML IV SCH ×2 (08:46→20:14)
[2018-05-19] MEDS: LACTOBACILLUS RHAMNOSUS GG 1 EACH CAP GT SCH (08:51)
[2018-05-19] MEDS: DOCUSATE 100 MG/10 ML UDC GT SCH ×2 (08:51→20:10)
[2018-05-19] MEDS: MULTIVITAMIN/MINERALS 15 ML UDBTL GT SCH (08:52)
[2018-05-19] MEDS: GLYCOPYRROLATE 1 MG TAB GT SCH ×2 (08:52→20:11)
[2018-05-19] MEDS: METHIMAZOLE 5 MG TAB GT SCH ×2 (08:52→20:11)
[2018-05-19] MEDS: FERROUS SULFATE 300 MG/5 ML UDC GT SCH (08:52)
[2018-05-19] MEDS: LISINOPRIL 10 MG TAB GT SCH (08:53)
[2018-05-19] MEDS: ASCORBIC ACID 500 MG/5 ML ORASYR GT SCH ×2 (08:53→21:00)
--- NOTE | 2018-05-19 09:01 | NUR ---
PATIENT HAS BEEN SCREENED AND CATEGORIZED HIGH NUTRITION RISK. PATIENT WILL BE SEEN WITHIN 1-2 DAYS OF ADMISSION. 05/19/[address]
--- NOTE | 2018-05-19 09:22 | NUR ---
PT SUCTIONED OBTAINED SMALL AMOUNT OF THICK CLEAR/WHITE SECRETIONS, AIRWAY IS PATENT AND TRACH IS SECURE. PT OPENS HER EYES BUT IS NOT ALERT. NO DISTRESS NOTED. WILL CONTINUE TO MONITOR.
--- NOTE | 2018-05-19 10:35 | NUR ---
WOUND CARE NURSE IS HERE, WOUND EVAL DONE. DRESSING WAS CHANGED FOR WOUND AT OLD G TUBE SITE, STOMA POWDER APPLIED, DRAINAGE BAG APPLIED. SACRAL DRESSING CHANGED, SITE WAS CLEANED WITH WOUND CLEANSE, PATTED DRY, PACKED WITH SILVER ALGINATE ROPE, COVERED WITH ISLAND DRESSING.
--- NOTE | 2018-05-19 10:43 | NUR ---
WEST 14FR IS LEAKING, CHECKED BALLOON WHICH WAS OK. HOWEVER, URINE IS STILL LEAKING. INSERTED NEW WEST 16 FR. PT TOLERATED WELL.
[2018-05-19] MEDS ORDERED: Z-GUARD PASTE TP PRN (11:35)
[2018-05-19] MEDS ORDERED: VANCOMYCIN 750 MG in DEXTROSE 5% 250 ML IV SCH (12:00)
--- NOTE | 2018-05-19 12:52 | NUR ---
WOUND CARE EVALUATION NOTES: REASON FOR EVALUATION: SACROCOCCYX PRESSURE INJURY COMPLETE SKIN ASSESSMENT DONE WITH PRIMARY RN ON THIS 62 Y/O FEMALE [place] [facility] [place] [facility], WITH DISTENDED ABDOMEN AND GREENISH DRAINAGE ON GT SITE. PAST MEDICAL HISTORY INCLUDE CVA WITH CHF, DIABETES, HYPERTENSION, SEIZURE DISORDERS, CHRONIC SACRAL PRESSURE INJURY WOUND AND DEMENTIA. ABOVE INFORMATION OBTAINED FROM THE ADMISSION H&P. PT. ADMITTED WITH PRESSURE INJURY STAGE4 ON SACRAL COCCYX. LABS ARE WBC 5.4, H/H 10.4/31.4, GLUCOSE 77 AND ALBUMIN 2.5. PATIENT IS NON-VERBAL. RIGHT FRONTAL SCULP SUNKEN. SKIN WARM TO TOUCH. NO HAIR GROWTH BLE DRY AND BILATERAL PEDAL PULSES PRESENT. GT AND TRACH IN PLACE, WEST CATHETER PATENT, INCONTINENT OF BOWEL. PLAN OF CARE DISCUSSED WITH PRIMARY RN. INTEGUMENTARY: -HX OF CRANIOTOMY TO RIGHT TEMPORAL, SCALP SKIN INTACT, NON-BULGED, OLD HEALED SCAR TO LEFT SCALP. -TRACHEOSTOMY STOMA SITE CLEAN AND MELY-STOMA SKIN DRY AND INTACT -MID UPPER ABD OLD GT SITE WITH HERNIA, 0.5X0.5 CM DEPTH UTD, MODERATE AMOUNT OF GREENISH DRAINAGE. MELY-STOMA SKIN MARCERATED WITH RASHES AND REDNESS AREA 6X8 CM WHICH MERGED TO LUQ ABD GT SITE SURROUNDING SKIN REDNESS -LUQ GT STOMA SITE MELY-STOMA SKIN REDNESS WITH RASHES, ENTIRE REDNESS MERGED WITH MID ABD AREA 6X8 CM -MID ABDOMEN CHRONIC HERNIA -ABDOMINAL FOLDS AND GROINS MOIST AND CLEAN -SACROCOCCYX PRESSURE INJURY STAGE 4 WITH 5X4X2 CM AND UNDERMINING BETWEEN 6 O'CLOCK TO 9 O'CLOCK WITH DEEPEST AT 7 O'CLOCK MEASURED 2 CM DEEP, WOUND BED 100% GRANULATING TISSUE, MODERATE AMOUNT OF SEROUS DRAINAGE , NO ODOR, WOUND EDGE FLAT MACERATED . -INCONTINENT ASSOCIATED DERMATITIS (IAD) R/L INNER BUTTOCKS EXTEND TO MELY-ANAL AREA, REDNESS RECOMMENDATIONS: -PENDING GI CONSULT -COLOSTOMY BAG TO MID UPPER ABD OLD GT SITE FOR MOISTURE CONTROL AND MELY-STOMA WOUND MANAGEMENT -CLEAN MID ABD.GT SITE REDNESS AREA WITH NS, PAT DRY, APPLY STOMAHESIVE PROTECTIVE POWDER AND COVER WITH DRY DRESSING COLOSTOMY BAG CHANGE AND PRN IF SOILING - CLEAN LUQ ABD.GT SITE REDNESS AREA WITH NS, PAT DRY, APPLY STOMAHESIVE PROTECTIVE POWDER AND COVER WITH DRY DRESSING QD AND PRN IF SOILING - CLEAN SACROCOCCYX PRESSURE ULCER WITH NS, PAT DRY, APPLY SILVER ALGINATE DRESSING ROLL TO WOUND BED AND APPLY Z-GUARD TO WOUND EDGE AND MELY-WOUND SKIN COVER WITH DRY DRESSING QD AND PRN IF SOILING - CLEAN R/L INNER BUTTOCKS EXTENDED TO MELY-ANAL AREA WITH SOAP AND WATER, PAT DRY APPLY Z-GUARD BIDWC AND PRN IF SOILING AND OPEN TO AIR -TURN AND REPOSITION PATIENT Q2H TO LEFT AND RIGHT SIDE ONLY TO OFFLOAD SACROCOCCYX -ASSESS AND MONITOR SKIN CONDITION DURING POSITION CHANGE, PLEASE PAY ATTENTION TO SACROCOCCYX -OFFLOAD BILATERAL HEELS BY PLACING PILLOWS UNDER CALVES AT ALL TIMES, UNLESS OTHERWISE CONTRAINDICATED -PRESSURE REDISTRIBUTION SURFACE THERAPY -KEEP SKIN CLEAN AND DRY AT ALL TIMES. RECOMMENDATIONS DISCUSSED WITH PRIMARY RN WILL FOLLOW UP PATIENT Q 7 -10 DAYS AND PRN. PLEASE CONTACT WOUND CARE NURSE FOR ANY CONCERNS AND CHANGES IN WOUND CONDITION
[2018-05-19] MEDS ORDERED: MORPHINE SULFATE 2 MG/ML SYR IVP SCH (13:00)
--- NOTE | 2018-05-19 13:05 | NUR ---
PHARM DELIVERED THE NEW DOSE OF VANCO, IVPB MED WAS ADMINISTERED.
--- NOTE | 2018-05-19 13:35 | NUR ---
CALLED PT'S FAMILY [phone] FOR CONSENT, LEFT MESSAGE, WAITING FOR CALL BACK.
--- NOTE | 2018-05-19 13:40 | NUR ---
SPOKE WITH PT'S NIECE PORTIA CACERES, CONSENT OBTAINED FOR EGD AND PEG TUBE REPLACEMENT.
--- NOTE | 2018-05-19 13:42 | NUR ---
FAXED MICRO FOR SPUTUM TO [facility].
[2018-05-19] MEDS ORDERED: GENTAMICIN PER PHARMACY MC PRN (14:10)
[2018-05-19] MEDS ORDERED: diphenhydrAMINE 50 MG/ML VIAL ONE (15:00)
[2018-05-19] MEDS ORDERED: MIDAZOLAM 2 MG/2 ML VIAL ONE (15:00)
[2018-05-19] MEDS ORDERED: fentaNYL 0.05 MG/ML VIAL ONE (15:00)
--- NOTE | 2018-05-19 15:28 | NUR ---
05/19/18 RD INITIAL ASSESSMENT COMPLETED PLEASE REFER TO NUTRITION ASSESSMENT UNDER CARE ACTIVITY FOR ESTIMATED NUTRITIONAL NEEDS. 1. CONTINUE NPO MEDICALLY APPROPRIATE 2. WHEN/IF PT IS MEDICALLY STABLE CONSIDER INITIATING ENTERAL NUTRITION WITH VITAL AF 1.2 AT A GOAL RATE OF 55 ML/HR -THIS WILL PROVIDE 1320 ML OF VOLUME, 1584 KCAL, 99 GM OF PROTEIN WHICH MEETS 100% OF ESTIMATED NEEDS. 3. RECOMMEND FREE WATER FLUSH 85 ML Q4H 4. RECOMMEND LONA BID 5. RD TO FOLLOW-UP 2-3 DAYS, HIGH RISK NEHA REEDER RD
[2018-05-19] MEDS ORDERED: GENTAMICIN 300 MG in NACL 0.9% 100 ML IV SCH (16:00)
--- NOTE | 2018-05-19 16:10 | NUR ---
TRANSFERRED PT TO AIR MATTRESS BE.
--- NOTE | 2018-05-19 16:16 | NUR ---
PT MOVED TO WOUND BED WITHOUT INCIDENT. TRACH IS SECURE WITH A PATENT AIRWAY.
--- NOTE | 2018-05-19 16:45 | NUR ---
NOTIFIED DR SMITH FOR BLOOD SUGAR 73, MD ORDERED TO START FEEDING GRUPO
--- NOTE | 2018-05-19 16:50 | NUR ---
CALLED HOUSE SUP FOR FEEDING PUMP.
--- NOTE | 2018-05-19 17:38 | NUR ---
PT REMAINS ON DOCUMENTED VENT SETTINGS. PT NOT IN ANY DISTRESS AT THIS TIME. TRACH REMAINS SECURE WITH A PATENT AIRWAY. VENT ALARMS REMAIN ON AND FUNCTIONING.
--- NOTE | 2018-05-19 18:05 | NUR ---
FEEDING STARTED AT 1805. RATE 10ML/HR. H2O FLUSH 85ML/Q4H.
--- NOTE | 2018-05-19 19:32 | NUR ---
ENDORSED PT TO SHOP MANAGER RN. PT IN STABLE CONDITION.
--- NOTE | 2018-05-19 19:33 | NUR ---
RECEIVED REPORT FROM JESÚS GAXIOLA. PT ON VENT: FIO2 28% VT 500 RR 12 AND PEEP . PT WITH WEST CATH INSERTED ON 05/17 DRAINING CLEAR YELLOW URINE. PT WITH IV ON R HAND INFUSING D5NS AT 10ML/H. AND LEFT HAND IV 24G SALINE LOCK. NEW G TUBE INSERTED ON 05/[address] BAG IN PL[address]. NG TUBE IN PLACE WITH TUBE FEEDING AT 10ML/H. PT ON CONTACT ISOLATION. ALL SAFETY MEASURES IN PLACE. CALL LIGHT WITHIN REACH.
--- NOTE | 2018-05-19 20:00 | NUR ---
DR ORTIZ NOTIFIED ABOUT BLOOD GLUCOSE LEVEL OF 62. FEEDING WERE JUST STARTED AT 1805. WILL RECHECK BLOOD GLUCOSE IN 2H PER ORDERS.
[2018-05-19] MEDS: PANTOPRAZOLE 40 MG INJ VIAL IVP SCH (20:11)
--- NOTE | 2018-05-19 20:12 | NUR ---
DUE MEDICATIONS GIVEN PT TOLERATED WELL. NO RESIDUAL NOTED. WILL CONTINUE TO MONITOR.
[2018-05-19] MEDS: ATORVASTATIN 20 MG TAB GT SCH (20:13)
--- NOTE | 2018-05-19 22:00 | NUR ---
BLOOD SUGAR RECHECKED IS NOW 78. DR ORTIZ MADE AWARE.
--- NOTE | 2018-05-19 23:10 | NUR ---
PT SLEEPING BUT AROUSABLE WITH LIGHT TOUCH. NO DISTRESS NOTED AT THIS TIME. CALL LIGHT WITHIN REACH WILL CONTINUE TO MONITOR.
--- NOTE | 2018-05-19 23:56 | NUR ---
ORAL CARE GIVEN. PT TOLERATED WELL. VITAL SIGNS ARE WITHIN NORMAL LIMITS. WILL CONTINUE TO MONITOR
--- NOTE | 2018-05-20 01:55 | NUR ---
PT SUCTIONED OBTAIN SMALL AMOUNT OF WHITE SECRETION. PT REPOSITION AND REINFORCED SACRAL DRESSING. PT TOLERATED WELL. NO SIGNS OF DISTRESS NOTED. CALL LIGHT WITHIN REACH WILL CONTINUE TO MONITOR.
--- NOTE | 2018-05-20 03:13 | NUR ---
RECEIVED CALL FROM LAB FOR RANDOM GENTAMICIN LEVEL 6.4. DR ORTIZ NOTIFIED. NO NEW ORDERS AT THIS TIME.
[2018-05-20 04:00] VITALS: BP 129/58
--- NOTE | 2018-05-20 04:00 | NUR ---
VITAL SIGNS ARE WITHIN NORMAL LIMITS. NO DISTRESS NOTED. ALL SAFETY MEASURES IN PLACE
[2018-05-20] MEDS: PHENYTOIN 100 MG/2 ML VIAL IVP SCH ×3 (04:14→20:36)
--- NOTE | 2018-05-20 06:20 | NUR ---
PT IS RESTING IN BED IS AROUSABLE TO LIGHT TOUCH. NO DISTRESS NOTED. SAFETY MEASURES IN PLACE.
[2018-05-20] MEDS: BLOOD GLUCOSE MONITORING 1 DEV DEV FS SCH ×4 (06:25→20:19)
[2018-05-20 06:43] LABS: FERRITIN 128 ng/mL (15-150); FOLIC ACID > 20.00 ng/mL (>3.0)
--- NOTE | 2018-05-20 06:46 | NUR ---
RECEIVED PT ON DOCUMENTED SETTINGS ON CARESCAPE PTS TRACH PORTEX IS SECURE PT IN HF NOT AWAKE BS DIMINISHED I\L SX MOD WHITE CONT POX AT BEDSIDE ALARMS ARE ON AND FUNCTIONAL BMV HOB VENT PLUGGED INTO RED OUTLET
--- NOTE | 2018-05-20 07:10 | NUR ---
ENDORSED PT TO THA GAXIOLA. PT IN STABLE CONDITION. ALL SAFETY MEASURES IN PLACE.
--- NOTE | 2018-05-20 07:11 | NUR ---
RECEIVED PT REPORT FROM THE STATE FEDERAL RELATIONS DEPUTY DIRECTOR NURSE AT BEDSIDE FOR CONTINUITY OF CARE. PT IS AWAKE, NOT ORIENTED. PT IS ON TRACH TO VENT: SETTINGS- FIO2 28%, VT 500, RATE 12, PEEP 5. PT ALSO HAS A NG TUBE FOR FEEDING, VITAL 1.2 AT 10ML/HR. O2 FLUSH SET AT 85ML Q 4 HOURS. WEST CATH PRESENT, COLOSTOMY BAG IN PLACE, GTUBE HL AT THIS TIME. ONLY USE FOR MEDS. SKIN, NON INTACT. PRESSURE ULCER ON SACRAL AREA. SCD'S ON. IV ON R HAND 22G, TKO AND L HAND 24G SL. ALL LABELS ON FLUIDS AND PB CURRENT AND PRESENT. WILL CONTINUE TO MONITOR PT.
[2018-05-20 07:29] LABS: BASOPHILS % (AUTO) 0.2 % (0.0-2.0); EOSINOPHILS # (AUTO) 0.3 K/uL (0-0.4); EOSINOPHILS % (AUTO) 2.5 % (0.0-4.0); HEMATOCRIT 32.8 % (36-48); HEMOGLOBIN 10.9 g/dL (12.0-16.0); LYMPHOCYTES # (AUTO) 1.4 K/uL (2.5-16.5); LYMPHOCYTES % (AUTO) 13.1 % (20.5-51.1); MEAN CORPUSCULAR HEMOGLOBIN 30 pg (27-31); MEAN CORPUSCULAR HGB CONC 33 g/dL (33-37); MEAN CORPUSCULAR VOLUME 89.6 fL (80-94); MONOCYTES # (AUTO) 0.3 K/uL (0.8-1.0); MONOCYTES % (AUTO) 2.3 % (1.7-9.3); NEUTROPHILS # (AUTO) 8.9 K/uL (1.8-7.7); NEUTROPHILS % (AUTO) 81.9 % (42.2-75.2); PLATELET COUNT (AUTO) 228 K/uL (140-450); RED BLOOD CELL COUNT(AUTO) 3.66 MIL/uL (4.20-5.40); RED CELL DISTRIBUTION WIDTH 14.2 % (11.6-13.7); WHITE BLOOD COUNT (AUTO) 10.9 K/uL (4.8-10.8)
--- NOTE | 2018-05-20 07:30 | NUR ---
V/S WITHIN NORMAL RANGE. NO SIGNS OF DISTRESS. STOPPED NG TUBE FEEDING D/T ORDERS. DR WEBBER ON CONSULT FOR VENTRAL HERNIA. WILL CONTINUE TO MONITOR PT.
[2018-05-20 07:57] LABS: ANION GAP 6.2 (8-16); CARBON DIOXIDE 23.2 mmol/L (21-32); CREATININE 0.6 mg/dL (0.6-1.3); POTASSIUM 3.4 mmol/L (3.5-5.1)
[2018-05-20 08:00] VITALS: BP 123/82
[2018-05-20 08:03] LABS: PHOSPHORUS 2.6 mg/dL (2.5-4.9)
[2018-05-20] MEDS ORDERED: MIDAZOLAM 2 MG/2 ML VIAL IVP ONE (08:10)
[2018-05-20] MEDS ORDERED: fentaNYL 0.05 MG/ML VIAL IVP ONE (08:10)
[2018-05-20] MEDS: DEXT 5% / NACL 0.9% 500 ML IV SCH ×2 (08:18→18:14)
[2018-05-20] MEDS: levETIRAcetam 500 MG in NACL 0.9% 100 ML IV SCH ×2 (09:10→20:30)
[2018-05-20] MEDS: ASCORBIC ACID 500 MG/5 ML ORASYR GT SCH ×2 (09:11→20:45)
[2018-05-20] MEDS: FERROUS SULFATE 300 MG/5 ML UDC GT SCH (09:11)
[2018-05-20] MEDS: METHIMAZOLE 5 MG TAB GT SCH ×2 (09:12→20:44)
[2018-05-20] MEDS: PANTOPRAZOLE 40 MG INJ VIAL IVP SCH ×2 (09:12→20:36)
[2018-05-20] MEDS: DOCUSATE 100 MG/10 ML UDC GT SCH ×2 (09:12→20:44)
[2018-05-20] MEDS: MULTIVITAMIN/MINERALS 15 ML UDBTL GT SCH (09:12)
[2018-05-20] MEDS: LACTOBACILLUS RHAMNOSUS GG 1 EACH CAP GT SCH (09:13)
[2018-05-20] MEDS: LISINOPRIL 10 MG TAB GT SCH (09:13)
[2018-05-20] MEDS: GLYCOPYRROLATE 1 MG TAB GT SCH ×2 (09:14→20:44)
--- NOTE | 2018-05-20 09:15 | NUR ---
ADMINISTERED MORNING MEDS VIA GTUBE. PT TOLERATED WELL. CHECKED FOR PLACEMENT, RESIDUAL-0, AND PATENCY. DID ORAL CARE; CHANGED DRESSING FOR GTUBE, REPLACED COLOSTOMY BAG, APPLIED STOMAHESIVE POWDER. PT TOLERATED WELL. WILL CONTINUE TO MONITOR PT.
[2018-05-20] MEDS ORDERED: POTASSIUM CHLORIDE 20% 40 MEQ/15 ML UDC GT SCH (10:30)
--- NOTE | 2018-05-20 11:10 | NUR ---
ADMINISTERED K 40MEQ FOR LOW K LEVEL ORDERED.
[2018-05-20 12:00] VITALS: BP 112/73
[2018-05-20] MEDS: INSULIN LISPRO SLIDING SCALE 100 UNITS/ML VIAL SUBQ PRN ×2 (12:25→17:44)
[2018-05-20] MEDS ORDERED: SODIUM PHOSPHATE 118 ML ENEM RC SCH (14:00)
[2018-05-20] MEDS ORDERED: BISACODYL 5 MG TABEC PO SCH (14:00)
--- NOTE | 2018-05-20 14:10 | NUR ---
ADMINISTERED COLACE AND ENEMA.
--- NOTE | 2018-05-20 14:28 | NUR ---
GAVE LONA WITH 8OZ OF WATER VIA NG TUBE. THERE IS AN ORDER TO RESTART FEEDING. RESTARTED. PT TOLERATED WELL.
[2018-05-20 16:00] VITALS: BP 145/90
--- NOTE | 2018-05-20 18:00 | NUR ---
CHANGED GTUBE FEEDING AND ALL TUBINGS. PT TOLERATED WELL. WILL CONTINUE TO MONITOR PT.
--- NOTE | 2018-05-20 18:23 | NUR ---
NOTIFIED REGARDING HIGH HR. DR RERE MORAN.
[2018-05-20] MEDS ORDERED: FUROSEMIDE 20 MG/2 ML VIAL IVP SCH (19:00)
--- NOTE | 2018-05-20 19:19 | NUR ---
ENDORSED PT TO THE CLINICAL DIETETIC TECHNICIAN NURSE AT BEDSIDE FOR CONTINUITY OF CARE. PT IS IN STABLE CONDITION.
--- NOTE | 2018-05-20 19:20 | NUR ---
RECEIVED REPORT FROM THA. PT IS STABLE. NO SIGNS OF DISTRESS. IS ON VENT AC 500/12/28%/5. IV ON LEFT HAND 24G SALINE LOCK, R HAND IV 22G INFUSING D5 AT 60ML/H. PT WITH SACRAL WOUND. NJ TUBE TO FEEDING AT 10ML/H RECEIVING VITAL AF 1.2. ITS TO BE INCREASED AT 2200 BY 10ML. PT HAS NEW GTUBE FOR MEDS STRICTLY. ALL SAFETY MEASURES IN PLACE. PT CLOSE TO NURSE STATION. CALL LIGHT WITHIN REACH.
[2018-05-20 19:36] VITALS: BP 114/60
--- NOTE | 2018-05-20 20:36 | NUR ---
PTS VITAL SIGNS ARE WITHIN NORMAL LIMITS. DUE MEDICATIONS GIVEN PT TOLERATED WELL. RESIDUAL 0. PROVIDED ORAL CARE. PT TOLERATED WELL. RT SUCTION PT. NO SIGNS OF DISTRESS NOTED AT THIS TIME. HOB 35 DEGREE. ALL SAFETY MEASURES IN PLACE.
[2018-05-20] MEDS: ATORVASTATIN 20 MG TAB GT SCH (20:44)
--- NOTE | 2018-05-20 22:05 | NUR ---
PT HAS 0 RESIDUAL AT THIS TIME. INCREASED FEEDING TO 20ML/HR. PT TOLERATED WELL. WILL CONTINUE TO MONITOR.
[2018-05-20 23:25] VITALS: BP 129/87
[2018-05-21] VITALS (7 sets, daily range): BP systolic 97–109; BP diastolic 49–90
--- NOTE | 2018-05-21 | NUR ---
PTS VITAL SIGNS ARE WITHIN NORMAL LIMITS. NO DISTRESS NOTED. ALL SAFETY MEASURES IN PLACE. WILL CONTINUE TO MONITOR.
[2018-05-21] MEDS ORDERED: GENTAMICIN 300 MG in NACL 0.9% 100 ML IV SCH (04:00)
[2018-05-21] MEDS: DEXT 5% /NACL 0.9% 1,000 ML IV SCH (04:04)
[2018-05-21] MEDS: PHENYTOIN 100 MG/2 ML VIAL IVP SCH ×3 (04:09→20:51)
--- NOTE | 2018-05-21 04:09 | NUR ---
DUE MEDICATIONS GIVEN PT TOLERATED WELL. VITAL SIGNS ARE WITHIN NORMAL LIMITS. NO SIGNS OF DISTRESS NOTED. SAFETY MEASURES IN PLACE.
[2018-05-21 05:49] LABS: BASOPHILS % (AUTO) 0.1 % (0.0-2.0); LYMPHOCYTES # (AUTO) 2.7 K/uL (2.5-16.5); LYMPHOCYTES % (AUTO) 13.7 % (20.5-51.1); MEAN CORPUSCULAR HEMOGLOBIN 29 pg (27-31); MEAN CORPUSCULAR HGB CONC 33 g/dL (33-37); MEAN CORPUSCULAR VOLUME 89.1 fL (80-94); MONOCYTES # (AUTO) 0.5 K/uL (0.8-1.0); MONOCYTES % (AUTO) 2.6 % (1.7-9.3); NEUTROPHILS # (AUTO) 16.1 K/uL (1.8-7.7); NEUTROPHILS % (AUTO) 83.6 % (42.2-75.2); PLATELET COUNT (AUTO) 271 K/uL (140-450); RED BLOOD CELL COUNT(AUTO) 4.15 MIL/uL (4.20-5.40); RED CELL DISTRIBUTION WIDTH 14.6 % (11.6-13.7); WHITE BLOOD COUNT (AUTO) 19.3 K/uL (4.8-10.8)
[2018-05-21] MEDS: BLOOD GLUCOSE MONITORING 1 DEV DEV FS SCH ×4 (06:03→21:51)
--- NOTE | 2018-05-21 06:20 | NUR ---
RESIDUAL 5CC. PT TOLERATING FEEDINGS WELL. WILL INCREASE RATE TO 30 PER ORDERS. WILL CONTINUE TO MONITOR. NO DISTRESS NOTED. SAFETY MEASURES IN PLACE.
--- NOTE | 2018-05-21 06:23 | NUR ---
REC'D PT ON CARESCAPE VENT SETTINGS AC 12 VT500 PEEP 5 FIO2 28% ALARMS ON AND AUDBILE, AMBU BAG AT SIDE OF VENT AND VENT IS PLUGGED INTO RED OUTLET SXN PT SMALL AMT OF THIN WHITE SECRETIONS, B\S ARE CLEAR AND DIMINISHED BILATERALLY, PT IS TRACH WITH PORTEX DCT 7 AND SKIN INTEGRITY IS INTACT PT IS RESTING WITH NO SIGNS OF DISTRESS NOTED AT THIS TIME
[2018-05-21 06:54] LABS: MAGNESIUM 1.9 mg/dL (1.8-2.4); PHOSPHORUS 3.6 mg/dL (2.5-4.9)
[2018-05-21 06:55] LABS: ANION GAP 15.1 (8-16); CARBON DIOXIDE 21.4 mmol/L (21-32)
--- NOTE | 2018-05-21 07:20 | NUR ---
ENDORSED PT TO DAY SHIFT NURSE. PT IN STABLE CONDITION. VS WITHIN NORMAL LIMITS.
[2018-05-21 07:38] LABS: POTASSIUM 2.5 mmol/L (3.5-5.1)
[2018-05-21] MEDS ORDERED: KCL 20 MEQ/WATER INJ PREMIX 200 ML IV SCH (08:00)
--- NOTE | 2018-05-21 08:00 | NUR ---
RECEIVED REPORT FROM MATT GAXIOLA FOR CONTINUITY OF CARE. PATIENT TRACH TO VENT ,NON -VERBAL OPEN HER EYES FOR VOICE, NO S/S OF RESP DISTRESS NOTED. NO DISCOMFORT NOTED. NJ-TUBE FOR FEEDING RUNNING AT 30ML/HR ,TOLERATED WELL WILL INCREASE THE RATE Q 8HRS BY 10/5L/HR ORDERED. THE GOAL 55ML/HR, WEST CATH DRAIN CLEAR YELLOW URINE. PATIENT IS ON HILL ROM BED, SACRAL WOUND NOTED WILL CHANGE DRESSING ORDERED. IV SITE RIGHT HAND GAUGE 22 INTACT AND PATENT, IVF INFUSING WELL. PLAN OF CARE DISCUSSED WITH THE PATIENT VITALS STABLE WILL CONTINUE TO MONITOR.
[2018-05-21] MEDS ORDERED: MEROPENEM 500 MG in NACL 0.9% 50 ML IV SCH (09:00)
[2018-05-21] MEDS: LISINOPRIL 10 MG TAB GT SCH (09:00)
--- NOTE | 2018-05-21 09:40 | NUR ---
DUE MEDS GIVEN THROUGH G-TUBE TOLERATED WELL , MORNING CARE GIVEN , KEPT PT CLEAN AND DRY. NO BM WILL CONTINUE TO MONITOR.
[2018-05-21] MEDS: LACTULOSE 20 GM/30 ML UDC GT SCH ×3 (10:02→16:44)
[2018-05-21] MEDS: DOCUSATE 100 MG/10 ML UDC GT SCH ×2 (10:02→20:44)
[2018-05-21] MEDS: GLYCOPYRROLATE 1 MG TAB GT SCH ×2 (10:03→20:45)
[2018-05-21] MEDS: FERROUS SULFATE 300 MG/5 ML UDC GT SCH (10:03)
[2018-05-21] MEDS: POTASSIUM CHLORIDE 20% 40 MEQ/15 ML UDC GT SCH (10:03)
[2018-05-21] MEDS: PANTOPRAZOLE 40 MG INJ VIAL IVP SCH ×2 (10:03→20:51)
[2018-05-21] MEDS: LACTOBACILLUS RHAMNOSUS GG 1 EACH CAP GT SCH (10:04)
[2018-05-21] MEDS: METHIMAZOLE 5 MG TAB GT SCH ×2 (10:04→20:45)
[2018-05-21] MEDS: SENNA 8.6 MG TAB GT SCH (10:05)
[2018-05-21] MEDS: MULTIVITAMIN/MINERALS 15 ML UDBTL GT SCH (10:06)
[2018-05-21] MEDS: levETIRAcetam 500 MG in NACL 0.9% 100 ML IV SCH ×2 (10:08→20:46)
[2018-05-21] MEDS: ASCORBIC ACID 500 MG/5 ML ORASYR GT SCH ×2 (10:47→20:51)
--- NOTE | 2018-05-21 11:30 | NUR ---
CHECKED BLOOD SUGAR 176 SLIDING SCALE COVERAGE 2 UNITS HUMALOG GIVEN, REPOSITION VITALS STABLE.
[2018-05-21] MEDS: INSULIN LISPRO SLIDING SCALE 100 UNITS/ML VIAL SUBQ PRN (12:10)
[2018-05-21] MEDS ORDERED: FLUCONAZOLE 100 MG TAB GT SCH (12:23)
--- NOTE | 2018-05-21 13:26 | NUR ---
VENT CHECK, SXN PT SMALL AMT OF WHITE SECRETIONS, PT IS RESTING WITH NO SIGNS OF DISTRESS NOTED
--- NOTE | 2018-05-21 14:00 | NUR ---
REPOSITION NO DISTRESS NOTED ,NEW IV LINE STARTED ON RIGHT WRIST G 24 K RIDER IS INFUSING AT THIS TIME
[2018-05-21] MEDS: MEROPENEM 1,000 MG in NACL 0.9% 100 ML IV SCH ×2 (14:36→20:46)
--- NOTE | 2018-05-21 15:31 | NUR ---
vent check, sxn pt small amt of white secretions, trach care changed trach gauze pt is resting with no signs of distress noted at this time
--- NOTE | 2018-05-21 16:20 | NUR ---
VITALS STABLE NO DISTRESS NOTED CHECKED BLOOD SUGAR 143 NO COVERAGE NEEDED
--- NOTE | 2018-05-21 17:07 | NUR ---
VENT CHECK NO SXN NEEDED AIRWAY IS PATENT
--- NOTE | 2018-05-21 18:43 | NUR ---
SAFETY MAINTAINED CALL LIGHT IN REACH ,NO BM DURING THE SHIFT .STABLE CONDITION
--- NOTE | 2018-05-21 19:24 | NUR ---
RECEIVED BEDSIDE REPORT FROM DAY SHIFT NURSE LAM RN, PT IN STABLE CONDITION, TACHYCARDIA NOTED, NO DISTRESS NOTED, IV TO R FA 24G, PATENT INTACT, INFUSING POTASSIUM AT THIS MOMENT, PT ON TRACH TO VENT, NO SOB, G TUBE IN PLACE, NO RESIDUAL NOTED, J TUBE IN PLACE 10ML RESIDUAL NOTED, WEST IN PLACE DRAINING YELLOW URINE, PT RESTING, NO DISTRESS NOTED, CALL LIGHT WITHIN REACH, WILL CONTINUE TO MONITOR.
--- NOTE | 2018-05-21 20:10 | NUR ---
BLADDERSCAN PERFORMED, 270ML URINE SCANNED IN THE BLADER, PT TOLERATED WELL, NOTIFIED DR. JERNIGAN REGARDING URINE. DR STATED UNDERSTANDING, PT RESTING, NO DISTRESS NOTED, CALL LIGHT WITHIN REACH, WILL CONTINUE TO MONITOR.
[2018-05-21 20:43] LABS: HEMATOCRIT 46.7 % (36-48); HEMOGLOBIN 15.3 g/dL (12.0-16.0); MEAN CORPUSCULAR HEMOGLOBIN 29 pg (27-31); MEAN CORPUSCULAR HGB CONC 33 g/dL (33-37); MEAN CORPUSCULAR VOLUME 89.6 fL (80-94); PLATELET COUNT (AUTO) 347 K/uL (140-450); RED BLOOD CELL COUNT(AUTO) 5.21 MIL/uL (4.20-5.40); RED CELL DISTRIBUTION WIDTH 15.1 % (11.6-13.7); WHITE BLOOD COUNT (AUTO) 19.8 K/uL (4.8-10.8)
[2018-05-21] MEDS: ATORVASTATIN 20 MG TAB GT SCH (20:45)
--- NOTE | 2018-05-21 20:51 | NUR ---
DUE MEDICATION ADMINISTERED, PT TOLERATED WELL, NO DISTRESS NOTED, CALL LIGHT WITHIN REACH, WILL CONTINUE TO MONITOR.
[2018-05-21 20:56] LABS: ANION GAP 13.6 (8-16); CARBON DIOXIDE 21.7 mmol/L (21-32); CREATININE 1.5 mg/dL (0.6-1.3); POTASSIUM 3.3 mmol/L (3.5-5.1)
[2018-05-21 21:04] LABS: LYMPHOCYTES % (MANUAL) 5 % (20-46); METAMYELOCYTES % 1 % (0-0); MONOCYTES % (MANUAL) 1 % (5-12)
[2018-05-21] MEDS ORDERED: NACL 0.9% 1,000 ML IV SCH (21:15)
--- NOTE | 2018-05-21 21:15 | NUR ---
NOTIFIED DR. JERNIGAN REGARDING PT LACTIC ACID 2.7, STATED UNDERSTANDING AND WILL PUT ORDER TO ADMINISTER NS @150ML/HR ON A NEW IV, NS WILL RUN CONCURRENTLY WITH THE CURRENT IVF THAT IS RUNNING. WILL CONTINUE WITH ORDERS.
--- NOTE | 2018-05-21 21:35 | NUR ---
NEW IV INSERTED 24G TO THE L FA, PT TOLERATED WELL, NO DISTRESS NOTED, CALL LIGHT WITHIN REACH, WILL CONTINUE TO MONITOR.
--- NOTE | 2018-05-21 23:00 | NUR ---
TUBE FEEDING INCREASED TO 50ML/HR, PT TOLERATING FEEDING WELL, 3ML RESIDUAL NOTED, PT RESTING, NO DISTRESS NOTED, CALL LIGHT WITHIN REACH, WILL CONTINUE TO MONITOR.
[2018-05-22] VITALS: BP 103/75
--- NOTE | 2018-05-22 00:19 | NUR ---
NOTIFIED DR. JERNIGAN REGARDING SECOND LACTIC ACID 2.3, STATED UNDERSTANDING, LACTIC ACID TRENDING DOWN, TO MONITOR PT, NO CHANGE IN ORDERS.
[2018-05-22] MEDS: DEXT 5% /NACL 0.9% 1,000 ML IV SCH (01:07)
--- NOTE | 2018-05-22 01:48 | NUR ---
PT RESTING, NO DISTRESS NOTED, CALL LIGHT WITHIN REACH, WILL CONTINUE TO MONITOR.
--- NOTE | 2018-05-22 03:57 | NUR ---
CHECKED ON PT, PT SLEEPING, NO DISTRESS NOTED, V/S TAKEN, WITHIN PT BASELINE, CALL LIGHT WITHIN REACH, WILL CONTINUE TO MONITOR.
[2018-05-22 04:00] VITALS: BP 126/77
[2018-05-22] MEDS: PHENYTOIN 100 MG/2 ML VIAL IVP SCH (05:04)
[2018-05-22] MEDS: MEROPENEM 1,000 MG in NACL 0.9% 100 ML IV SCH (05:05)
--- NOTE | 2018-05-22 06:05 | NUR ---
TALKED TO DR. JERNIGAN REGARDING PT URINATE ONLY 100ML THROUGHOUT THE NIGHT DESPITE HAVING 2310 FLUID INTAKE. STATED UNDERSTANDING.
[2018-05-22] MEDS ORDERED: SODIUM PHOSPHATE 118 ML ENEM RC SCH (06:30)
[2018-05-22] MEDS ORDERED: BOWEL EVACUANT DRINK 4,000 ML PDS PO SCH (06:30)
[2018-05-22] MEDS ORDERED: BISACODYL 5 MG TABEC PO SCH (06:30)
[2018-05-22] MEDS: INSULIN LISPRO SLIDING SCALE 100 UNITS/ML VIAL SUBQ PRN (06:51)
[2018-05-22] MEDS: BLOOD GLUCOSE MONITORING 1 DEV DEV FS SCH (06:55)
--- NOTE | 2018-05-22 07:14 | NUR ---
RECIVED PT ON VENT WITH SETTINGS CHARTED INCREASED FIO2 TO .35 RN NANETTE AWARE BREATH SOUNDS PRESENT BILAT COARSE SXN PT WITH MIN AMT OFF WHITE SECS VENT PLUGGED INTO RED OUTLET AMBU BAG AT BEDSIDE WILL CONTINUE TO MONITOR PT ON VENT
[2018-05-22] MEDS ORDERED: NACL 0.9% 1,000 ML IV SCH ×2 (07:20→10:40)
--- NOTE | 2018-05-22 07:20 | NUR ---
ENDORSED PT TO DAY SHIFT NURSE [place] RN, PT STABLE, NO DISTRESS NOTED, CALL LIGHT WITHIN REACH.
--- NOTE | 2018-05-22 07:21 | NUR ---
RECEIVED BEDSIDE REPORT FROM PM SHIFT NURSE. PT IN BED, ASLEEP, RESPIRATIONS EVEN & UNLABORED, TRACH TO VENT IN PLACE. RT AT BEDSIDE PROVIDING CARE.
[2018-05-22 08:00] VITALS: BP 111/82
--- NOTE | 2018-05-22 08:00 | NUR ---
LEFT FOREARM IV ACCESS INFILTRATED. DR SMITH AT BEDSIDE NOTIFIED WITH RECOMMENDATION FOR MIDLINE/PICC IV INSERTION D/T PT'S BILAT UPPER XT 3+ EDEMA. PER PHYSICIA, HE WILL INPUT ORDER & DISCUSS WITH FAMILY.
[2018-05-22 08:21] LABS: HEMOGLOBIN 13.5 g/dL (12.0-16.0); LYMPHOCYTES # (AUTO) 0.8 K/uL (2.5-16.5); LYMPHOCYTES % (AUTO) 4.6 % (20.5-51.1); MEAN CORPUSCULAR HEMOGLOBIN 29 pg (27-31); MEAN CORPUSCULAR HGB CONC 33 g/dL (33-37); MONOCYTES # (AUTO) 0.5 K/uL (0.8-1.0); MONOCYTES % (AUTO) 2.9 % (1.7-9.3); NEUTROPHILS # (AUTO) 16.6 K/uL (1.8-7.7); NEUTROPHILS % (AUTO) 92.5 % (42.2-75.2); PLATELET COUNT (AUTO) 387 K/uL (140-450); RED CELL DISTRIBUTION WIDTH 14.8 % (11.6-13.7)
--- NOTE | 2018-05-22 08:30 | NUR ---
SPOKE TO ALBERT LOVE ON THE PHONE & RE: PICC INSERTION ORDER. VERBAL CONSENT GIVEN OVER THE PHONE VIA 2-NURSE VERIFICATION.
--- NOTE | 2018-05-22 08:38 | NUR ---
CALLED THE PICC LINE SERVICE AT [phone] AND SPOKE WITH NERY REGARDING THE PICC LINE PLACEMENT. PER NERY, COMFORT PICC LINE RN WILL CALL FOR THE ETA. [place] NURSE ASSIGNED MADE AWARE.
--- NOTE | 2018-05-22 08:50 | NUR ---
SPOKE TO COMFORT (PICC NURSE) ON THE PHONE. STATES HE HAS ETA OF 1200.
[2018-05-22] MEDS: DOCUSATE 100 MG/10 ML UDC GT SCH (09:00)
[2018-05-22] MEDS ORDERED: levETIRAcetam 100 MG/ML ORASYR GT SCH (09:00)
[2018-05-22] MEDS: MULTIVITAMIN/MINERALS 15 ML UDBTL GT SCH (09:00)
[2018-05-22] MEDS: PANTOPRAZOLE 40 MG INJ VIAL IVP SCH (09:00)
[2018-05-22] MEDS ORDERED: FLUCONAZOLE 100 MG TAB GT SCH (09:00)
[2018-05-22] MEDS ORDERED: ASPIRIN 81 MG TAB.CHEW PO SCH (09:00)
[2018-05-22] MEDS: FERROUS SULFATE 300 MG/5 ML UDC GT SCH (09:00)
[2018-05-22 09:11] LABS: ANION GAP 19.8 (8-16); CARBON DIOXIDE 14.1 mmol/L (21-32); CREATININE 1.6 mg/dL (0.6-1.3)
[2018-05-22 09:14] LABS: PHENYTOIN (DILANTIN) 3.5 ug/ml (10.0-20.0); PHOSPHORUS 3.8 mg/dL (2.5-4.9)
[2018-05-22 09:17] LABS: POTASSIUM 2.9 mmol/L (3.5-5.1)
[2018-05-22] MEDS: ASCORBIC ACID 500 MG/5 ML ORASYR GT SCH (09:25)
[2018-05-22] MEDS: LACTULOSE 20 GM/30 ML UDC GT SCH (09:25)
[2018-05-22] MEDS: SENNA 8.6 MG TAB GT SCH (09:25)
[2018-05-22] MEDS: LACTOBACILLUS RHAMNOSUS GG 1 EACH CAP GT SCH (09:26)
[2018-05-22] MEDS: METHIMAZOLE 5 MG TAB GT SCH (09:26)
[2018-05-22] MEDS: LISINOPRIL 10 MG TAB GT SCH (09:26)
[2018-05-22] MEDS: GLYCOPYRROLATE 1 MG TAB GT SCH (09:26)
[2018-05-22] MEDS: POTASSIUM CHLORIDE 20% 40 MEQ/15 ML UDC GT SCH (09:27)
[2018-05-22] MEDS ORDERED: POTASSIUM CHLORIDE 40 MEQ, LIDOCAINE MPF 1% - 5 mL VIAL 25 MG in NACL 0.9% 250 ML IV SCH (09:30)
--- NOTE | 2018-05-22 09:30 | NUR ---
NGT FEEDING HELD D/T RESIDUAL OF 200ML. ABD ROUND, FIRM, BOWEL SOUNDS HYPOACTIVE. FERROUS SULFATE, MULTIVITAMIN, & COLACE HELD.
--- NOTE | 2018-05-22 09:45 | NUR ---
UNABLE TO ADMINISTER BISACODYL EC TABS D/T PT ON NGT, UNABLE TO SWALLOW WHOLE TABS. PHYSICIAN NOTIFIED. DULCOLAX SUPP ADMINISTERED.
[2018-05-22 12:00] VITALS: BP 100/58
--- NOTE | 2018-05-22 12:00 | NUR ---
LEFT VOICEMAIL TO DAJA RE: TRANSFER ORDER TO ICU.
--- NOTE | 2018-05-22 12:10 | NUR ---
PT TRANSFERED FROM [address] VIA AMBU BAG UPON ARIVING TO CT BT B/P LOW WITH LOW SP02 DECIDED PT UNSTABLE FOR CT AND TRANSFERED TO ICU BED 1 PLACED ON VENT WITH SETTINGS CHARTED WILL CONTINUE TO MONITOR PT ON VENT RN AT BEDSIDE
--- NOTE | 2018-05-22 12:15 | NUR ---
BEDSIDE REPORT GIVEN TO ICU NURSE TORITO. Addendum: 05/22/18 at 1245 by Hillary Saenz RN ADDENDUM: PT TAKEN TO CT FROM TELE FLOOR FOR STAT ABD CT. UNABLE TO START CT D/T PT'S DECREASED WITH SPO2 & SBP IN 80s. PT AWAKE, TRACH TO VENT, RESPIRATIONS LABORED. TAKEN TO ICU 1. COMFORT PICC NURSE NOTIFIED VIA PHONE OF TRANSFER.
--- NOTE | 2018-05-22 12:30 | NUR ---
RECEIVED PATIENT FROM TELE UNIT PER HOSPITAL BED. ATTACHED TO BEDSIDE MONITOR. HR 142, SPO2 87, RR 36, BP 75/24. COLOSTOMY TO MID UPPER ABDOMEN TO GREENISH LIQUID STOOLS. HAD LARGE GREENISH BM WELL. SKIN WARM TO TOUCH WNL, TOENAILS WNL, WITH EDEMA, WITH HAIR GROWTH AND FAINT BILATERAL PEDAL PULSES. NO IV ACCESS AT THIS TIME, FOR PICC LINE INSERTION. LEFT NARES -ANALY NOTED. FC IN PLACE PATENT AND INTACT TO DARK DEVONTE URINE IN SMALL AMOUNT. ABDOMEN IS DISTENDED. UMBILICAL HERNIA NOTED. CALL LIGHT WITHIN REACH. BED AT LOWEST POSSIBLE POSITION. WILL MONITOR PATIENT.
--- NOTE | 2018-05-22 12:40 | NUR ---
LEFT VOICEMAIL FOR DAJA AGAIN TO [phone] & [phone].
[2018-05-22] MEDS ORDERED: PHENYTOIN 100 MG/4 ML UDC GT SCH (13:00)
--- NOTE | 2018-05-22 13:35 | NUR ---
PATIENT SHOWED ASYSTOLE ON MONITOR. NO PULSE, NO BP. [facility]RYST[facility] BLUE WAS CALLED. CPR INITIATED.
--- NOTE | 2018-05-22 13:36 | NUR ---
CHRYSTAL WHEELER MD ARRIVED ON SCENE. CPR CONTINUOUSLY PERFORMED. 3 DOSES OF EPINEPHRINE GIVEN IN BETWEEN 2 MINS OF CPR. STILL SHOWING ASYSTOLE ON MONITOR AND NO PULSE PALPATED. PRONOUNCED BY DR. YUSUF AT 1346.
--- NOTE | 2018-05-22 13:54 | NUR ---
TRIED TO CALL [phone] NO ANSWER. CALLED [phone], ALBERT IVAN ([employer]) INFORMED OF PATIENT'S . HE STATED HE WILL CALL ME BACK IN 2-3 HOURS TO PROVIDE INFORMATION REGARDING MORTUARY.
--- NOTE | 2018-05-22 14:05 | NUR ---
[facility] CONTACTED, SPOKE TO ANTONIO. SHE STATED THEY ARE NOT GOING TO PROCEED WITH THE CASE AND PROVIDED ME WITH .
--- NOTE | 2018-05-22 14:20 | NUR ---
PLACED A CALL TO [facility] OFFICE, WILL CALL BACK WITH CASE NUMBER.
--- NOTE | 2018-05-22 15:16 | NUR ---
DEPUTRaimundo SCHULTE CALLED BACK, ALL QUESTIONS ANSWERED. HE STATED WILL RELEASE THE BODY .
--- NOTE | 2018-05-22 15:32 | NUR ---
CALLED ALBERT IVAN ([employer]) TO ASK IF ANY FAMILY MEMBER IS COMING OVER TO SEE THE PATIENT, HE STATED NO ONE IS COMING. WILL CALL ME BACK IN 30 MINS OR SO FOR MORTUARY INFORMATION.
--- NOTE | 2018-05-22 17:20 | NUR ---
PORTIA BLACKBURN, PATIENT'S DAUGHTER CALLED AND MADE AWARE OF PATIENT'S DEMISE. I ASKED HER IF DAJA CACERES AND ALBERT LOVE SPOKE TO HER. SHE STATED "WE DON'T TALK TO EACH OTHER, DAJA IS AN ODD GIRL." I ALSO ASKED HER IF THEY HAVE DISCUSSED ANY MORTUARY SERVICES, SHE AGAIN STATED " I DON'T TALK TO THEM, YOU SHOULD CALL THEM."
--- NOTE | 2018-05-22 17:30 | NUR ---
PLACED A CALL AGAIN TO ALBERT LOVE AT [phone] TO FOLLOW UP ON MORTUARY SERVICES. HE STATED THE FAMILY HAS NOT DECIDED ON ANYTHING YET. WILL CALL ME BACK. EXPLAINED TO HIM THAT WE CAN NOT KEEP THE BODY FOR A LONG TIME SINCE WE DO NOT HAVE A MORGUE. I ALSO PROVIDED HIM INFORMATION REGARDING [facility] AND [facility]. HE STATED "I WILL DISCUSS THIS WITH THE FAMILY AND WILL GIVE YOU A CALL BACK."
--- NOTE | 2018-05-22 17:40 | NUR ---
ALBERT LOVE CALLED BACK AND TOLD ME TO CALL DAJA CACERES AT [phone] AND INFORM HER OF [facility] AND [employer]. CALLED THE SAID NUMBER BUT WENT STRAIGHT TO VOICEMAIL. LEFT MESSAGES TO DAJA. AWAITING FOR CALL BACK.
--- NOTE | 2018-05-22 17:52 | NUR ---
CALLED DAJA CACERES AGAIN, BUT TO NO AVAIL. LEFT MESSAGE AGAIN. AWAITING FOR CALL BACK.
--- NOTE | 2018-05-22 17:56 | NUR ---
CALLED ALBERT LOVE AGAIN, ASK HIM REGARDING MORTUARY SERVICES AND DAJA CACERES IS STILL NOT PICKING UP CALLS AND ALL CALLS GOES TO VOICEMAIL. HE STATED "GO AHEAD AND SET UP WITH [facility]."
--- NOTE | 2018-05-22 18:00 | NUR ---
SPOKE TO CATIE WILLIAM. WILL FAX FACE SHEET.
--- NOTE | 2018-05-22 19:20 | NUR ---
REPORT RECEIVED FROM ABIMAEL/ICU CHARGE NURSE THAT THEY FAXED FACE SHEET TO [facility], CALLED MORTUARY AT THIS TIME, SPOKE WITH CATIE, STATED " THEY ARE ON THE WAY TO [employer] THE BODY".
--- NOTE | 2018-05-22 20:30 | NUR ---
MORTICIAN ARRIVED AT 2014, LEFT THE UNIT WITH THE BODY AT THIS TIME, PATIENT DOES NOT HAVE ANY PERSONAL BELONGINGS.
[2018-05-25 21:39] LABS: TRANSFERRIN 129 mg/dL (200-370)
== END 2018-05-22 20:30 | disposition expired | DRG 813 ==
LOC: MED 12:09 → MTU 15:26 → MIC 05-22 12:40
PROVIDERS: ADMIT General Practice; ATTEND General Practice
PROC: 5A1955Z Respiratory Ventilation, Greater than 96 Consecutive Hours (ICD-10-PCS; principal; 2018-05-17)
PROC: 0DH63UZ Insertion of Feeding Device into Stomach, Percutaneous Approach (ICD-10-PCS; 2018-05-19)
PROC: 0DP6XUZ Removal of Feeding Device from Stomach, External Approach (ICD-10-PCS; 2018-05-19)
PROC: 5A12012 Performance of Cardiac Output, Single, Manual (ICD-10-PCS; 2018-05-22)
PROC: 02H633Z Insertion of Infusion Device into Right Atrium, Percutaneous Approach (ICD-10-PCS; 2018-05-22)
PROC: B244ZZZ Ultrasonography of Right Heart (ICD-10-PCS; 2018-05-22)
DX: T85.528A Displacement of other gastrointestinal prosthetic devices, implants and grafts, initial encounter (principal); J96.20 Acute and chronic respiratory failure, unspecified whether with hypoxia or hypercapnia; N17.0 Acute kidney failure with tubular necrosis; R65.21 Severe sepsis with septic shock; A41.9 Sepsis, unspecified organism; E43 Unspecified severe protein-calorie malnutrition; G93.40 Encephalopathy, unspecified; I46.9 Cardiac arrest, cause unspecified; T85.838A Hemorrhage due to other internal prosthetic devices, implants and grafts, initial encounter; J18.1 Lobar pneumonia, unspecified organism; L89.154 Pressure ulcer of sacral region, stage 4; J44.0 Chronic obstructive pulmonary disease with (acute) lower respiratory infection; F03.90 Unspecified dementia, unspecified severity, without behavioral disturbance, psychotic disturbance, mood disturbance, and anxiety; E86.1 Hypovolemia; K21.9 Gastro-esophageal reflux disease without esophagitis; N39.0 Urinary tract infection, site not specified; K43.9 Ventral hernia without obstruction or gangrene; Z86.73 Personal history of transient ischemic attack (TIA), and cerebral infarction without residual deficits; B96.5 Pseudomonas (aeruginosa) (mallei) (pseudomallei) as the cause of diseases classified elsewhere; E03.9 Hypothyroidism, unspecified; E05.90 Thyrotoxicosis, unspecified without thyrotoxic crisis or storm; E11.9 Type 2 diabetes mellitus without complications; E78.00 Pure hypercholesterolemia, unspecified; E78.5 Hyperlipidemia, unspecified; G40.909 Epilepsy, unspecified, not intractable, without status epilepticus; I10 Essential (primary) hypertension; I35.0 Nonrheumatic aortic (valve) stenosis; K43.5 Parastomal hernia without obstruction or gangrene; K74.60 Unspecified cirrhosis of liver; L03.90 Cellulitis, unspecified; E87.6 Hypokalemia; E86.0 Dehydration; E83.41 Hypermagnesemia; D63.8 Anemia in other chronic diseases classified elsewhere; K56.7 Ileus, unspecified; K56.41 Fecal impaction; R13.10 Dysphagia, unspecified; Y83.8 Other surgical procedures as the cause of abnormal reaction of the patient, or of later complication, without mention of misadventure at the time of the procedure; D50.9 Iron deficiency anemia, unspecified; B96.4 Proteus (mirabilis) (morganii) as the cause of diseases classified elsewhere; K94.22 Gastrostomy infection; R53.2 Functional quadriplegia; E66.3 Overweight; Z87.891 Personal history of nicotine dependence; Z88.0 Allergy status to penicillin; Z93.0 Tracheostomy status; Z98.2 Presence of cerebrospinal fluid drainage device; Z99.11 Dependence on respirator [ventilator] status; Z88.8 Allergy status to other drugs, medicaments and biological substances; Z79.82 Long term (current) use of aspirin; Z79.899 Other long term (current) drug therapy; Z86.718 Personal history of other venous thrombosis and embolism; Z82.49 Family history of ischemic heart disease and other diseases of the circulatory system; Z82.3 Family history of stroke; Z74.01 Bed confinement status; Y92.89 Other specified places as the place of occurrence of the external cause
CPT/HCPCS: 36415; 51702; 71045; 74018; 80048; 80053; 80170; 80185; 80202; 81001; 82607; 82728; 82746; 82948; 83036; 83540; 83605; 83690; 83735; 83880; 84100; 84134; 84443; 84484; 85025; 85045; 85610; 85730; 87040; 87070; 87075; 87077; 87081; 87086; 87186; 87205; 89220; 93005; 94003; 96361; 96365; 99285; A4371; A4649; C1751; C9113; J1165; J1200; J1580; J1815; J1940; J1953; J1956; J2001; J2185; J2250; J2270; J3010; J3370; J3480; J7030; J7042; J7060; Q0092